=== PATIENT | male | born 1960 | race African-American/Black ===

== ENCOUNTER 2017-09-03 22:36 | Inpatient (IN) | payer OTHER, SELFPAY ==
[2017-09-03] MEDS ORDERED: Ondansetron HCl/PF 4 MG/2 ML Vial ONE (23:45)
[2017-09-04 00:27] LABS: #Basophils 0.1 thou/uL (0.0-0.2); #Eosinphils 0.2 thou/uL (0.0-0.7); #Lymphocytes 1.9 thou/uL (1.20-3.40); #Monocytes 0.7 thou/uL (0.11-0.59); #Neutrophils 8.3 thou/uL (1.40-6.50); %Basophils 0.5 % (0.0-1.0); %Eosinophils 1.6 % (0.0-10.0); %Lymphocytes 17.4 % (21.0-51.0); %Monocytes 6.3 % (0.0-10.0); Mean Platelet Volume 8.3 fL (7.4-10.4); Red Blood Cell (RBC) Count 4.15 mill/uL (4.70-6.10); White Blood Cell (WBC) Count 11.1 thou/uL (4.8-10.8)
[2017-09-04] MEDS ORDERED: cloNIDine 0.1 MG TAB ONE (00:33)
[2017-09-04 00:45] LABS: Troponin I 0.127 ng/mL (< 0.028)
[2017-09-04 00:48] LABS: Chloride 97 mmol/L (98-107)
[2017-09-04 00:49] LABS: Calcium 9.2 mg/dL (7.8-10.44)
[2017-09-04 00:50] LABS: Globulin 3.9 g/dL (2.4-3.5); Protein, Total 7.3 g/dL (6.0-8.3)
[2017-09-04 00:51] LABS: Carbon Dioxide 17 mmol/L (22-29)
[2017-09-04 00:52] LABS: Alkaline Phosphatase 107 U/L (40-150); Bilirubin, Total 1.4 mg/dL (0.2-1.2)
[2017-09-04 00:53] LABS: Calc. Creatinine Clearance 0 mL/min (70-130); Estimated GFR-MDRD 34
[2017-09-04 00:54] LABS: BUN (Urea Nitrogen) 34 mg/dL (8.4-25.7)
[2017-09-04 00:55] LABS: AST (SGOT) 25 U/L (5-34)
[2017-09-04 00:56] LABS: ALT (SGPT) 12 U/L (8-55); Lipase 30 U/L (8-78)
[2017-09-04] MEDS ORDERED: hydrALAZINE 20 MG/ML VIAL ONE (01:03)
[2017-09-04 01:04] LABS: Anion Gap 23 mmol/L (10-20)
[2017-09-04 01:59] LABS: Bilirubin Negative (Negative); Blood, Urine Moderate (Negative); Glucose, Urine (Dipstick) 250 mg/dL (Negative); Ketone, Urine Trace mg/dL (Negative); Nitrite Negative (Negative); Protein, Urine (Dipstick) 300 mg/dL (Neg-Trace); Urobilinogen 0.2 mg/dL (0.2-1.0)
[2017-09-04 02:02] LABS: Bacteria/HPF None Seen HPF (None Seen); Hyaline Casts/LPF 4-6 HYALINE CAST LPF (0-3 Hyaline); RBC/HPF 0-3 HPF (0-3); Squamous Epithelial None Seen HPF (0-3); WBC/HPF 0-3 HPF (0-3)
[2017-09-04] MEDS ORDERED: Ondansetron HCl/PF 4 MG/2 ML Vial IVP PRN (02:23)
[2017-09-04] MEDS ORDERED: Acetaminophen 325 MG TAB PO PRN (02:23)
[2017-09-04] MEDS ORDERED: Sodium Chloride 0.9% 1,000 ML IV SCH ×2 (02:30→09:15)
[2017-09-04] MEDS ORDERED: Enoxaparin Sodium 100 MG/ML SYRINGE ONE (04:01)
[2017-09-04] MEDS ORDERED: cloNIDine 0.1 MG TAB PO PRN ×2 (05:17→08:48)
[2017-09-04 05:19] LABS: #Basophils 0.1 thou/uL (0.0-0.2); #Eosinphils 0.2 thou/uL (0.0-0.7); #Lymphocytes 1.6 thou/uL (1.20-3.40); #Monocytes 0.8 thou/uL (0.11-0.59); #Neutrophils 6.7 thou/uL (1.40-6.50); %Basophils 0.7 % (0.0-1.0); %Eosinophils 2.1 % (0.0-10.0); %Lymphocytes 16.9 % (21.0-51.0); %Monocytes 8.3 % (0.0-10.0); Hematocrit 34.9 % (42.0-52.0); Mean Platelet Volume 7.9 fL (7.4-10.4); Red Blood Cell (RBC) Count 4.07 mill/uL (4.70-6.10); White Blood Cell (WBC) Count 9.3 thou/uL (4.8-10.8)
[2017-09-04 05:36] VITALS: BMI 27.8
[2017-09-04 05:40] LABS: ALT (SGPT) 11 U/L (8-55); AST (SGOT) 22 U/L (5-34); Alkaline Phosphatase 107 U/L (40-150); Anion Gap 15 mmol/L (10-20); BUN (Urea Nitrogen) 35 mg/dL (8.4-25.7); Bilirubin, Total 1.8 mg/dL (0.2-1.2); Calc. Creatinine Clearance 43 mL/min (70-130); Calcium 8.9 mg/dL (7.8-10.44); Carbon Dioxide 23 mmol/L (22-29); Chloride 97 mmol/L (98-107); Estimated GFR-MDRD 32; Globulin 3.8 g/dL (2.4-3.5)
[2017-09-04 05:44] LABS: Troponin I 0.141 ng/mL (< 0.028)
[2017-09-04] MEDS ORDERED: Nitroglycerin 2% Ointment 1 INCH/1 GM Packet TOP SCH (06:00)
[2017-09-04] MEDS: Piperacillin/Tazobactam 3.375 GM in Sodium Chloride 0.9% 100 ML IVPB SCH ×4 (06:34→23:58)
[2017-09-04] MEDS ORDERED: Aspirin 81 mg Enteric Coated Tablet PO SCH (09:00)
[2017-09-04] MEDS ORDERED: Insulin Regular 300 UNITS/3 ML VIAL SC PRN (09:06)
[2017-09-04] MEDS ORDERED: Dextrose 50% Abboject 50 ML SYRINGE SLOW IVP PRN (09:06)
[2017-09-04] MEDS ORDERED: Dextrose 5% in Water 1,000 ML IV PRN (09:06)
[2017-09-04] MEDS: Heparin 5,000 UNITS/ML VIAL SC SCH ×3 (09:35→20:09)
--- NOTE | 2017-09-04 09:45 | RAD ---
PORTABLE CHEST: Date: 09/04/17 HISTORY: Chest pain. COMPARISON: 08/26/16 exam. FINDINGS: Heart size is within normal limits for portable technique. The aorta is mildly tortuous. The lungs ap pear clear of any infiltrates. No signs of failure. IMPRESSION: No acute findings. POS: [facility]
--- NOTE | 2017-09-04 10:10 | CT ---
PRELIMINARY REPORT/[facility]/EMERGENCY AFTER HOURS PROCEDURE: EXAM: CT Abdomen and Pelvis Without Intravenous Contrast EXAM DATE/TIME: Exam ordered 09/04/2017 1:19 AM CLINICAL HISTORY: 56 years old, male; Pain; Abdominal pain; Epigastric; Prior surgery; Surgery type: Surgical history o f cholecystectomy; Patient HX: Abdomen assessment findings include abdomen symmetrical, abdomen soft, tender, to the epigastric region, bowel sound normal, associated with nausea, associated with vomiting, currently, number of times: 2, vomiting yellow fluid TECHNIQUE: Axial computed tomography images of the abdomen and pelvis without intravenous contrast. Coronal reformatted images were created and reviewed. COMPARISON: No relevant prior studies available. FINDINGS: Lower thorax: No acute findings. ABDOMEN: Liver: Unremarkable. Gallbladder and bile ducts: Prior cholecystectomy. No ductal dilation. Pancreas: Unremarkable. No ductal dilation. Spleen: Unremarkable. No splenomegaly. Adrenals: Unremarkable. No mass. Kidneys and ureters: Chronic medical renal disease. No obstructing stones. No hydronephrosis. Stomach and bowel: Unremarkable. No obstruction. No mucosal thickening. Appendix: Normal appendix. PELVIS: Bladder: Unremarkable. No stones. Reproductive: Unremarkable as visualized. ABDOMEN and PELVIS: Intraperitoneal space: Unremarkable. No free air. No significant fluid collection. Bones/joints: Right hip osteoarthritis. No acute fracture. No dislocation. Soft tissues: Unremarkable. Vasculature: Unremarkable. No abdominal aortic aneurysm. Lymph nodes: There is circumferential soft tissue density thickening of the wall of the splenic flexu re of the colon with mildly prominent adjacent lymph nodes and minimal associated stranding. This yvette uld be considered primary colon cancer until proven otherwise. IMPRESSION: There is circumferential soft tissue density thickening of the wall of the splenic flexure of the col on with mildly prominent adjacent lymph nodes and minimal associated stranding. This should be consid ered primary colon cancer until proven otherwise. Thank you for allowing us to participate in the care of your patient. Dictated and Authenticated by: Reza Ha MD 09/04/2017 1:31 AM Central Time ([place] & [place]) FINAL REPORT EMERGENCY AFTER HOURS CT ABDOMEN AND PELVIS PERFORMED WITHOUT CONTRAST ENHANCEMENT: Date: 09/04/17 HISTORY: Abdominal pain, more epigastric in nature. COMPARISON: 02/02/15 exam. FINDINGS: The lung bases are clear of infiltrates. The liver, spleen, and pancreas regions appear unremarkable given the limitations of a noncontrast st udy. Gallbladder has been removed. Right and left adrenal glands, and right and left kidneys are normal in size and do not appear obstru cted. There is no significant periaortic or mesenteric lymphadenopathy. In the region of the splenic flexure, there is suggestion of an area of wall thickening. There is some minimal pericolonic fat str anding in this region which makes this finding more worrisome as to be more than just simply contract ion. CT of pelvis was performed without contrast enhancement. There is no evidence of adenopathy, mass, or free fluid. There are arthritic changes of the spine and hips. IMPRESSION: Focal area of possible wall thickening in the splenic flexure with some minimal fat stranding in this region. Although these changes are subtle, the possibility that this represents a colonic malignancy should be considered and colonoscopy would be recommended for further assessment. This report is in agreement with the preliminary report issued by [facility]. POS: [facility]
--- NOTE | 2017-09-04 10:47 | HP ---
HISTORY OF PRESENT ILLNESS: Mr. Loo is a 56-year-old black man. He came to this facility last nig with complaint of abdominal pain, nausea, and vomiting which started about 2 days prior to admissi on. These problems have been getting worse over time. He also claims that yesterday morning, he had some chest pain while at rest, which lasted about 30 minutes, was relieved spontaneously and did not show any radiation. He was evaluated in the ER, was found to have a positive cardiac enzymes and po ssible colitis. He has been admitted for management and evaluation. He is known to have a history of congestive heart failure about 1 year ago. In 02/2016, he had a per fusion scan, which showed reversible anterior myocardial ischemia with an ejection fraction of 49%. He is also known to have a history of hypertension, diabetes mellitus, and chronic kidney disease. W marshall do not know his baseline kidney function at this time. During his last admission about 1 year ago, his creatinine was noticed to be 3.0, it was in 06/2016. He is also known to have a history of hepa titis B and hepatitis C. PAST SURGICAL HISTORY: His surgical history is remarkable for cholecystectomy. ALLERGIES: He does not have any known allergies. SOCIAL HISTORY: He is an active smoker; however, could not quantify his smoking habit. He claims th at he smoked every now and then. He also smoked marijuana and he claims that he drinks socially. FAMILY HISTORY: Reviewed and is remarkable for hypertension. MEDICATIONS: Prior to admission, he was on aspirin 81 mg daily, Lipitor 40 mg daily, Coreg 25 mg b.i .d., Clonidine 0.2 mg b.i.d., Lasix 40 mg daily, NPH insulin 25 units b.i.d., isosorbide mononitrate 30 mg daily, metformin 500 mg b.i.d., nifedipine XL 60 mg daily. REVIEW OF SYSTEMS: Constitutional: He admits to generalized weakness. He denies any fever. HEENT: No headache, no ocular pain, no sore throat, no rhinorrhea, no earache, no epistaxis. Neck: No ne ck pain, no neck stiffness. Cardiovascular: No chest pain. Respiratory: No shortness of breath. Pulmonary: Admits to chronic cough. Gastrointestinal: Admits to abdominal pain, nausea, vomiting. He denies diarrhea. Genitourinary: No dysuria, no hematuria. Endocrinology: No heat or cold into lerance. No polyuria, polydipsia or polyphagia. Musculoskeletal: He denies arthralgia. Skin: No rash, no itching. Allergies: No hayfever. Hematology: No abnormal bleeding, no ecchymosis. Lymph atic: No palpable lymphadenopathy, no painful lymphadenopathy. Psychiatric: No anxiety, no depress ion. Neurologic: No seizure, no weakness. PHYSICAL EXAMINATION: GENERAL: At the current time, he is alert, oriented, in no acute distress. VITAL SIGNS: His latest vital signs showed a temperature of 98.1, pulse rate 101, respiratory rate 1 8, blood pressure 142/72. HEENT: His head is normocephalic and atraumatic. Both his pupils are equal, reactive. Ears and nos e normal. Oral mucosa is moist. Pharyngeal area is clear with no exudate, no hyperemia. NECK: Supple. There is no distention of the jugular vein. No lymphadenopathy felt. Thyroid gland not palpable. There is no carotid bruit. CHEST: Symmetrical with regular S1, S2. LUNGS: Clear. ABDOMEN: Soft, bowel sounds heard. We could not appreciate any organomegaly. There is no focal are a of tenderness. EXTREMITIES: Show +1 edema. NEUROLOGIC: He moves all extremities. LABORATORY DATA AND IMAGING: Showed sodium of 131, potassium 4.4, chloride 97, CO2 23, BUN 35, creat inine 2.51, glucose 159, calcium 8.9, total bilirubin 1.8, AST 22, ALT 11, alkaline phosphatase 107, troponin was noticed to be 0.141, earlier it was 0.127. BUN earlier at midnight was 34, creatinine 2 .39. CBC showed WBC of 9.3, hemoglobin of 11.7, hematocrit of 34.9, MCV of 85.7, platelet 180. Ches t x-ray reviewed by us showed no acute infiltrate, normal size heart. Abdomen CT was reported to yvette w evidence of colitis. ASSESSMENT: This is a 56-year-old black male with history of hypertension, diabetes mellitus, [place] ry artery disease, congestive heart failure who was admitted with nausea, vomiting, abdominal pain, f ound to have colitis on abdomen CT, was also noticed to have elevated cardiac enzymes. Cardiology co nsult was called. NE protocol was initiated. We will also get gastroenterology evaluation. His ser um creatinine was noticed to be increased and consistent with acute on chronic kidney disease; fletchereve r, as mentioned earlier, we do not know his baseline kidney function. The patient is admitted to [facility]. Further evaluation and management will depend on the course of his hospitalization and his r esponse to therapy.
[2017-09-04] MEDS: Famotidine/PF 20 mg/2ml Vial SLOW IVP SCH (11:04)
[2017-09-04] MEDS: Sodium Chloride 0.9% 1,000 ML IV SCH ×2 (11:04→20:09)
[2017-09-04 11:27] LABS: Troponin I 0.114 ng/mL (< 0.028)
[2017-09-04 11:41] LABS: Amphetamine Not Detected (NotDetected); Methadone Not Detected (NotDetected); Methamphetamine Not Detected (NotDetected)
--- NOTE | 2017-09-04 12:34 | CON ---
DATE OF CONSULTATION: 09/04/2017 REASON FOR CONSULTATION: Uncontrolled hypertension, chest pain, and coronary disease, a patient of [facility]. HISTORY OF PRESENT ILLNESS: Mr. Loo is a 56-year-old man. He has a long history of hypertension a nd renal insufficiency as well as chest pain with coronary disease. The patient came to the hospital with chest pain which was severe and associates with blood pressure of over 210 systolic. The patie nt has been treated, now his blood pressure is better. He is pain free now. 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 MEDICATIONS: Prior to admission, he was on Lasix, lisinopril, and clonidine. Previously had been on nifedipine and carvedilol, but has been placed back on it now. ALLERGIES: None known. SOCIAL HISTORY: He just got out of senior care a couple days ago, smokes occasionally. REVIEW OF SYSTEMS: CONSTITUTIONAL: No significant weight gain or loss. VISION: No changes. HEARING: No changes. PULMONARY: No cough or wheezing. GASTROINTESTINAL: No nausea, vomiting, diarrhea. SKIN: No rashes. NEUROLOGIC: No unilateral weakness or numbness. PSYCHIATRIC: No unusual depression or anxiety. PHYSICAL EXAMINATION: VITAL SIGNS: Blood pressure is now much better, 142/72, is was 210/109 at 5:30 this morning. NECK: Neck veins are normal. Carotid normal upstrokes. LUNGS: Clear. CARDIAC: Normal S1, normal S2. There is no murmur, rub or gallop. ABDOMEN: Soft, nontender. EXTREMITIES: No clubbing, no cyanosis. There is no edema. HEMATOLOGIC: No unusual bruising. PSYCHIATRIC: Mood and affect normal. NEUROLOGIC: Grossly normal. SKIN: Warm and dry. LABORATORY: Creatinine is 2.51. Estimated GFR 32, stage 3 renal failure, now with improved. Tropon in level 0.141. The EKG; normal sinus rhythm with ST changes probably related to left ventricular hypertrophy. ASSESSMENT: 1. Uncontrolled hypertension. 2. Stage 3 renal failure. 3. Underlying coronary disease. 4. Hyponatremia probably secondary to diuretics. PLAN: 1. Agree with intravenous fluids, will reduce dose. 2. We do urine toxicology screen. 3. He can probably be released home tomorrow if doing well.
[2017-09-04] MEDS ORDERED: Carvedilol 6.25 MG TAB PO SCH (17:00)
[2017-09-04] MEDS ORDERED: Carvedilol 25 MG TAB PO SCH (17:00)
[2017-09-04] MEDS: Carvedilol 25 MG TAB PO SCH (17:17)
[2017-09-04] MEDS: Insulin NPH/Reg Insulin Hm 300 UNITS/3 ML VIAL SC SCH (17:38)
--- NOTE | 2017-09-04 17:46 | CON ---
DATE OF CONSULTATION: 09/04/2017 TYPE OF CONSULTATION: Gastroenterology Consultation. CHIEF COMPLAINT: Abdominal pain with nausea and vomiting. HISTORY OF PRESENT ILLNESS: Mr. Loo is a 56-year-old man who was admitted with 2 days of nausea an d vomiting and diffuse left upper quadrant, sharp abdominal pain. The pain went on persistently for 2 days, but is much better today and has only lasted a few minutes at a time a few times today. His nausea and vomiting is resolved today and he tolerated a hamburger without any problems. He has had no diarrhea, constipation or blood in the stool. He has had multiple similar admissions in the past and has undergone upper endoscopy 3 different times. He has been found to have an ulcer in the past and H. pylori in the past which has been treated with antibiotics. His most recent endoscopy showed negative for H. pylori by biopsies. CT scan this admission showed thickening around the splenic flex ure with some fat stranding. GI was consulted to evaluate for neoplastic process in this area. 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 He has had a duodena l ulcer and has been treated for H. pylori in the past. His most recent upper endoscopy also showed fungal esophagitis for which he was treated. Previous serology showed past infection with hepatitis B with a core antibody positive and surface antibody positive. He does not have chronic hepatitis B. Hepatitis C has been negative. He has a history of hypertension, diabetes mellitus, and chronic ki dney disease. PAST SURGICAL HISTORY: Cholecystectomy. FAMILY HISTORY: Negative for GI malignancies. SOCIAL HISTORY: He last used cocaine a few days ago. He smokes occasionally. He drinks 2-3 beers a couple times per week. ALLERGIES: No known drug allergies. MEDICATIONS: Aspirin, carvedilol, clonidine, famotidine, heparin subcu, isosorbide mononitrate, nife dipine, and Zosyn. REVIEW OF SYSTEMS: Negative x10 systems reviewed except as stated in the history of present illness. PHYSICAL EXAMINATION: VITAL SIGNS: Temperature 97.5, pulse 87, blood pressure 154/86. GENERAL: He is in no acute distress. He is alert and oriented x3. HEENT: Eyes have no scleral icterus. Oropharynx is clear, without lesions. NECK: No cervical or supraclavicular lymphadenopathy. LUNGS: Clear to auscultation bilaterally. HEART: Regular rate and rhythm without murmur. ABDOMEN: Soft, mild tenderness in the left upper quadrant without guarding. Bowel sounds are presen t. No hepatomegaly. EXTREMITIES: No lower extremity edema. NEUROLOGIC: Cranial nerves are grossly intact. LABORATORY: White blood cell count 9.3, hemoglobin 11.7, platelets 180, creatinine 2.51, bilirubin 1 .8, AST 22, ALT 11, alkaline phosphatase 107, albumin 3.2, lipase 30. Urine cocaine was positive. IMPRESSION: 1. Ischemic colitis. There is some thickening with some inflammatory stranding around the splenic f lexure, at the same time presenting with left upper quadrant abdominal pain and cocaine use and uncon trolled hypertension. CT scan was read as circumferential thickening at this level and malignancy wa s recommended to be ruled out. The patient did have an attempted colonoscopy by Dr. Andino back in 2013; however, the prep was poor at that time. 2. Cirrhosis of the liver likely due to past alcohol. He is negative for chronic hepatitis C and ne gative for chronic hepatitis B. He has had a nodular liver confirmed by imaging. Endoscopy back in 01/2015 did not show varices. Since he is due for colonoscopy to evaluate abnormal CT findings then endoscopy can be performed at the same time for varices screening. RECOMMENDATIONS: 1. Check alpha fetoprotein. 2. Plan EGD for varices screening. 3. Colonoscopy to evaluate the abnormal CT findings at the splenic flexure. However, I favor this t o be ischemic colitis rather than a neoplastic process. 4. We will also schedule ultrasound for hepatoma screening as the CT on admission was without contra st. 5. We will plan to give clear liquids all day tomorrow and bowel prep for colonoscopy and EGD on Wed afternoon.
[2017-09-04] MEDS: Atorvastatin Calcium 40 MG TAB PO SCH (20:10)
[2017-09-04] MEDS ORDERED: Atorvastatin Calcium 40 MG TAB PO SCH (21:00)
[2017-09-05 06:02] LABS: Anion Gap 10 mmol/L (10-20); BUN (Urea Nitrogen) 40 mg/dL (8.4-25.7); Calc. Creatinine Clearance 39 mL/min (70-130); Calcium 7.9 mg/dL (7.8-10.44); Carbon Dioxide 23 mmol/L (22-29); Chloride 102 mmol/L (98-107); Cholesterol 148 mg/dl (< 200 Desired); Estimated GFR-MDRD 30; LDL Cholesterol, Calculated 62 mg/dL
[2017-09-05] MEDS: Piperacillin/Tazobactam 3.375 GM in Sodium Chloride 0.9% 100 ML IVPB SCH ×4 (06:30→23:56)
[2017-09-05] MEDS: Sodium Chloride 0.9% 1,000 ML IV SCH (06:30)
--- NOTE | 2017-09-05 07:00 | CON ---
DATE OF CONSULTATION: 09/04/2017 CONSULTING PHYSICIAN: Abe Martinez M.D. REQUESTING PHYSICIAN: Dr. Cabrera REASON FOR CONSULTATION: Chronic kidney disease. IMPRESSION: 1. Moderately-advanced chronic kidney disease. 2. Mild hyponatremia. HISTORY OF PRESENT ILLNESS: This is a 56-year-old gentleman with moderately-advanced chronic kidney disease, who in the past has had recurrent acute on chronic kidney disease. The patient presented he re with nausea, vomiting, and abdominal pain but denies any diarrhea. On presentation, the patient w as noted with an elevated creatinine of 2.5. The patient denies any sick contact. As a result of th e elevated creatinine, the decision was taken to involve Renal in the management of this case. ALLERGIES: No known drug allergies. SOCIAL HISTORY: Significant for tobacco use and marijuana use. FAMILY HISTORY: Significant for high blood pressure. MEDICATIONS: Reviewed and as documented on [employer]. REVIEW OF SYSTEMS: As documented in the body of the history. All the other systems were reviewed an d found not to be significantly related to the presenting illness. LABORATORY INVESTIGATION: Showed a sodium of 131, BUN of 35, creatinine of 2.51, bilirubin 1.8, albu min 3.2. PHYSICAL EXAMINATION: GENERAL: The patient was found not to be in any obvious distress. VITAL SIGNS: Noted with the following vital signs: Afebrile, temperature 97.5, pulse 87, respirator y rate of 18, O2 saturation of 98%, blood pressure 154/86. HEENT: Unremarkable. Moist oral mucosa. NECK: Supple. No conjunctival injection or icterus. CARDIOVASCULAR SYSTEM: First and second heart sounds were heard. RESPIRATORY SYSTEM: Clear to auscultation. DIGESTIVE SYSTEM: Revealed an obese abdomen with some areas of vague tenderness in both the right an d left lower quadrants. EXTREMITIES: No peripheral edema. SKIN: No new gross rash. NEUROLOGIC: Alert and oriented. No lateralizing signs. LYMPHATICS: No peripheral lymphadenopathy. SUMMARY: A 56-year-old gentleman with moderately-advanced chronic kidney disease, who presented here with abdominal discomfort with nausea and vomiting. Thank you for this consultation. We will follow with you.
--- NOTE | 2017-09-05 08:10 | ULT ---
RIGHT UPPER QUADRANT ULTRASOUND: Date: 09/05/17 HISTORY: Hepatoma screening. History of cirrhosis. FINDINGS: Real-time images of the upper abdomen are limited due to bowel gas. The gallbladder has been removed. Common duct is 7.0 mm. The visualized liver parenchyma shows no focal findings. Pancreas is obscured . Right kidney is not obstructed. IMPRESSION: 1. Postop cholecystectomy change. Normal caliber common duct at 6-7 mm considering cholecystectomy. 2. No evidence of liver mass. Liver is approximately 17 cm in length. POS: [facility]
--- NOTE | 2017-09-05 08:13 | PDOC.PN ---
- Subjective Encounter Start Date: 09/05/17 Encounter Start Time: 07:30 Some right upper quadran disconfort.. - Objective Vital Signs & Weight: Vital Signs (12 hours) Temp Pulse Resp BP BP Pulse Ox 09/05/17 04:00 98 F 88 20 155/80 H 98 09/04/17 23:58 210/109 H Weight Weight 201 lb I&O: 09/04/17 09/05/17 09/06/17 06:59 06:59 06:59 Intake Total 30 4259 Output Total 375 3425 Balance -345 834 Result Diagrams: 09/04/17 05:00 09/05/17 05:16 Additional Labs: Accuchecks 09/05/17 05:41 POC Glucose 209 H Phys Exam - Physical Examination Constitutional: NAD HEENT: sclera anicteric Neck: no JVD Respiratory: clear to auscultation bilateral Cardiovascular: RRR Gastrointestinal: soft, non-tender, no distention, positive bowel sounds Musculoskeletal: no edema Neurological: moves all 4 limbs Psychiatric: A&O x 3 Dx/Plan (1) Colitis Code(s): K52.9 - NONINFECTIVE GASTROENTERITIS AND COLITIS, UNSPECIFIED Status : Acute Plan: For colonoscopy and EGD. Comment: Most likely ischemic, per GI. (2) ROMAINE (acute kidney injury) Code(s): N17.9 - ACUTE KIDNEY FAILURE, UNSPECIFIED Status: Acute Plan: Followed by Nephrology. Comment: Serum creatinine higher, consistant with ROMAINE + CKD. (3) Hypertension Code(s): I10 - ESSENTIAL (PRIMARY) HYPERTENSION Status: Chronic Plan: Continue current management.. Comment: Stable. (4) Diabetes mellitus type 2 in nonobese Code(s): E11.9 - TYPE 2 DIABETES MELLITUS WITHOUT COMPLICATIONS Status: Chronic Plan: Continue sliding scale.. (5) Coronary artery disease Code(s): I25.10 - ATHSCL HEART DISEASE OF [place] CORONARY ARTERY W/O ANG PCTRS Status: Chronic Comment: Stable.. elevated troponin due to CKD+ROMAINE. Seen by cardiology. - Plan For EGD & colonoscopy. -: Patient is hepatitis B & C negative per GI. -: F/u abdomen ultrasound.. * .
[2017-09-05] MEDS: Insulin NPH/Reg Insulin Hm 300 UNITS/3 ML VIAL SC SCH ×2 (08:34→16:34)
[2017-09-05] MEDS: Aspirin 81 mg Enteric Coated Tablet PO SCH (08:34)
[2017-09-05] MEDS: Carvedilol 25 MG TAB PO SCH ×2 (08:35→16:47)
[2017-09-05] MEDS: Heparin 5,000 UNITS/ML VIAL SC SCH ×3 (08:36→21:00)
[2017-09-05] MEDS ORDERED: FLU VACC QS2017-18 36 mo. & older 0.5 ML SYRINGE IM ONE (09:00)
[2017-09-05] MEDS ORDERED: NIFEdipine XL 60 MG TAB PO SCH (09:00)
[2017-09-05] MEDS: NIFEdipine XL 90 MG TAB PO SCH (09:11)
[2017-09-05] MEDS: Famotidine/PF 20 mg/2ml Vial SLOW IVP SCH (12:29)
--- NOTE | 2017-09-05 13:05 | PRG ---
DATE OF SERVICE: 09/05/2017 SUBJECTIVE: Mr. Loo feels better today. No complaints. PHYSICAL EXAMINATION: VITAL SIGNS: Blood pressure is still high, early this morning it was 155/80; at 9:08, it is 180/86. LUNGS: Clear. CARDIAC: Normal S1, normal S2. ABDOMEN: Soft, nontender. EXTREMITIES: There is no edema. PERTINENT LABORATORY: Creatinine is 2.7. GFR is 30. ASSESSMENT: 1. Hypertension, initially malignant, now improved, still elevated. 2. Stage 3 renal failure. Estimated GFR is 30. 3. Triglyceride 301, hypertriglyceridemia. PLAN: 1. Continue current medical regimen, showed a good amount of regimen dose now for hypertension. 2. Endoscopy will be done soon. 3. He can follow up with Dr. Monroy as an outpatient at the time of discharge.
[2017-09-05] MEDS ORDERED: GoLYTELY 4,000 ml Bottle PO SCH (17:00)
[2017-09-05] MEDS: Atorvastatin Calcium 40 MG TAB PO SCH (22:30)
[2017-09-05] MEDS ORDERED: cloNIDine 0.2 MG TAB PO SCH (23:15)
--- NOTE | 2017-09-05 23:22 | PRG ---
DATE OF SERVICE: 09/05/2017 SUBJECTIVE: Mr. Loo has no acute complaints today. OBJECTIVE: VITAL SIGNS: Temperature 98.7, pulse 80 and blood pressure 178/95. GENERAL: He is in no acute distress. LUNGS: Clear to auscultation bilaterally. HEART: Regular rate and rhythm. ABDOMEN: Soft. Mild tenderness in left upper quadrant without guarding. Bowel sounds are present. No hepatomegaly. EXTREMITIES: No lower extremity edema. IMPRESSION: 1. Ischemic colitis, presenting with abdominal pain and thickening and inflammatory changes around t he splenic flexure. This is likely caused by cocaine use and dehydration. Attempted colonoscopy by Dr. Sina romero in 08/2014 was incomplete due to poor bowel prep. 2. Cirrhosis of the liver, likely due to past alcohol. His last endoscopy was in 01/2015 and was ne gative for varices. Esophagogastroduodenoscopy will be planned at the time of colonoscopy to rule ou t varices now. RECOMMENDATIONS: 1. EGD and colonoscopy tomorrow. 2. If these tests are negative, then he should be ready to discharge from a GI standpoint. 3. Await alpha-fetoprotein.
[2017-09-06 05:45] LABS: Anion Gap 11 mmol/L (10-20); BUN (Urea Nitrogen) 23 mg/dL (8.4-25.7); Calc. Creatinine Clearance 45 mL/min (70-130); Calcium 8.3 mg/dL (7.8-10.44); Carbon Dioxide 23 mmol/L (22-29); Chloride 103 mmol/L (98-107); Estimated GFR-MDRD 34
[2017-09-06] MEDS: Piperacillin/Tazobactam 3.375 GM in Sodium Chloride 0.9% 100 ML IVPB SCH ×3 (06:39→16:48)
[2017-09-06] MEDS ORDERED: GoLYTELY 4,000 ml Bottle PO SCH (07:00)
[2017-09-06] MEDS: Heparin 5,000 UNITS/ML VIAL SC SCH (09:17)
[2017-09-06] MEDS: Carvedilol 25 MG TAB PO SCH ×2 (09:18→16:48)
[2017-09-06] MEDS: NIFEdipine XL 90 MG TAB PO SCH (09:18)
[2017-09-06] MEDS: Aspirin 81 mg Enteric Coated Tablet PO SCH (09:18)
[2017-09-06] MEDS: Famotidine/PF 20 mg/2ml Vial SLOW IVP SCH (09:27)
[2017-09-06] MEDS: Lisinopril 10 MG TAB PO SCH (10:10)
[2017-09-06] MEDS ORDERED: cloNIDine 0.1 MG TAB PO PRN (12:00)
[2017-09-06] MEDS ORDERED: cloNIDine 0.1 MG TAB PO SCH (12:00)
[2017-09-06] MEDS ORDERED: ALPRAZolam 0.25 MG TAB PO PRN (12:01)
[2017-09-06] MEDS ORDERED: hydrALAZINE 20 MG/ML VIAL SLOW IVP PRN (12:03)
[2017-09-06] MEDS ORDERED: hydrALAZINE 25 MG TAB PO SCH ×2 (12:15→15:00)
[2017-09-06] MEDS ORDERED: Propofol 200 MG/20 ML VIAL ONE (14:05)
[2017-09-06] MEDS ORDERED: Lidocaine 1% PF 5 ML VIAL ONE (14:05)
[2017-09-06] MEDS: cloNIDine 0.1 MG TAB PO SCH ×2 (15:33→20:20)
--- NOTE | 2017-09-06 16:25 | OP ---
PREOPERATIVE DIAGNOSES: 1. Cirrhosis: 2. Abnormal CT of colon. PROCEDURE IN DETAIL: After informed consent was obtained, the patient was placed in the left lateral decubitus position. Anesthesia was administered per the Anesthesia Department. Forward-viewing end oscope was inserted into the esophagus under direct visualization with ease and passed to the second portion of the duodenum with ease. Second portion of the duodenum and duodenal bulb were normal. Py lorus, antrum, body, fundus, and cardia were normal. No gastric varices were noted. Retroflexion in the stomach was normal. Esophagus was normal throughout. ASSESSMENT: Normal esophagogastroduodenoscopy. RECOMMENDATIONS: Proceed with colonoscopy. DESCRIPTION OF OPERATION: After informed consent was obtained, the patient was placed in the left la teral decubitus position. Anesthesia was administered per the Anesthesia Department. Forward-viewin g endoscope was inserted into the rectum after perianal inspection and rectal exam were normal, it wa s passed to the cecum and into the ileum. The ileum, ileocecal valve, and appendiceal orifice were n ormal. The prep was excellent. The ascending, transverse, descending, sigmoid and rectum were davina l except for splenic flexure mass that was three-fourth circumferential. This was likely malignant. Biopsies were taken. The patient also had 5 polyps scattered throughout the colon. These were both sessile and pedunculated and removed with hot snare electrocautery without difficulty. None of thes e polyps appeared malignant. They were all placed in the same container. ASSESSMENT: 1. 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 2. Multiple colon polyps. RECOMMENDATIONS: 1. Await histopathology. 2. CEA. 3. Surgical pin.
[2017-09-06] MEDS: Insulin NPH/Reg Insulin Hm 300 UNITS/3 ML VIAL SC SCH ×2 (16:47→18:29)
[2017-09-06] MEDS: Atorvastatin Calcium 40 MG TAB PO SCH (20:20)
[2017-09-06] MEDS: hydrALAZINE 25 MG TAB PO SCH (20:20)
--- NOTE | 2017-09-06 20:41 | PDOC.PN ---
- Subjective Encounter Start Date: 09/06/17 Encounter Start Time: 10:00 Patient seen and examined. No new complaints. No overnight events. NPO for EGD/ Colon. No CP/SOB - Objective MAR Reviewed: Yes Vital Signs & Weight: Vital Signs (12 hours) Temp Pulse Resp BP BP Pulse Ox 09/06/17 19:00 98.0 F 76 18 172/89 H 99 09/06/17 17:03 71 09/06/17 16:50 202/110 H 09/06/17 15:34 97.5 F L 71 16 205/119 H 100 09/06/17 15:33 205/119 H 09/06/17 12:14 217/110 H 09/06/17 12:13 76 217/110 H 09/06/17 11:59 98 F 76 18 217/110 H 97 09/06/17 10:37 98.2 F 88 18 09/06/17 10:10 217/110 H 09/06/17 09:18 88 Weight Weight 201 lb I&O: 09/05/17 09/06/17 09/07/17 06:59 06:59 06:59 Intake Total 4259 6340 2355 Output Total 3425 7510 550 Balance 834 -1170 1805 Result Diagrams: 09/04/17 05:00 09/06/17 05:02 Additional Labs: Accuchecks 09/06/17 09/06/17 09/06/17 16:50 13:50 11:17 POC Glucose 182 H 198 H 262 H 09/06/17 09/05/17 06:12 20:28 POC Glucose 189 H 315 H EKG Reviewed by me: Yes (Tele SR) Phys Exam - Physical Examination Constitutional: NAD Respiratory: no wheezing, no rhonchi Cardiovascular: RRR, no rub Gastrointestinal: soft, no distention, positive bowel sounds mild gen tenderness Musculoskeletal: no edema Neurological: moves all 4 limbs Dx/Plan - Plan DVT proph w/SCDs IMPRESSION: 1. Ischemic Colitis 2. HTN crisis 3. CKD 3 4. Elevated troponins due to # 2 and 3 5. Polysubstance abuse 6. Cirrhosis 7. GERD 8. Dyslipidemia PLAN: * EGD/Colon today * Add Clonidine due to uncontrolled BP - probably due to illicit drug withdrawal * AM labs * Conselled on drug abuse * DC SQ Heparin due to elevated BP Review of Systems - Review of Systems Respiratory: negative: Cough, Dry, Shortness of Breath, Hemoptysis, SOB with Excertion, Pleuritic Pain, Sputum, Wheezing Cardiovascular: negative: Chest Pain, Palpitations, Orthopnea, Paroxysmal Noc. Dyspnea, Edema, Light Headedness - Medications/Allergies Allergies/Adverse Reactions: Allergies Allergy/AdvReac Type Severity Reaction Status Date / Time No Known Allergies Allergy Verified 02/18/15 19:53 Medications: Current Medications Acetaminophen (Tylenol) 650 mg PO Q4H PRN PRN Reason: Headache/Fever or Pain Last Admin: 09/04/17 05:29 Dose: 650 mg Alprazolam (Xanax) 0.25 mg PO BIDPRN PRN PRN Reason: Anxiety Aspirin (Ecotrin) 81 mg PO DAILY [facility] Last Admin: 09/06/17 09:18 Dose: 81 mg Atorvastatin Calcium (Lipitor) 40 mg PO HS [facility] Last Admin: 09/06/17 20:20 Dose: 40 mg Carvedilol (Coreg) 25 mg PO BID-[facility] Last Admin: 09/06/17 16:48 Dose: 25 mg Clonidine (Catapres) 0.1 mg PO Q4H PRN PRN Reason: Systolic BP > 180 Clonidine (Catapres) 0.1 mg PO TID [facility] Last Admin: 09/06/17 20:20 Dose: 0.1 mg Dextrose/Water (Dextrose 50%) 25 gm SLOW IVP PRN PRN PRN Reason: Hypoglycemia Famotidine (Pepcid) 20 mg SLOW IVP DAILY [facility] Last Admin: 09/06/17 09:27 Dose: 20 mg Glucagon (Glucagon) 1 mg IM PRN PRN PRN Reason: Hypoglycemia Hydralazine HCl (Apresoline) 10 mg SLOW IVP Q4H PRN PRN Reason: SBP Greater Than 180 Last Admin: 09/06/17 17:03 Dose: 10 mg Hydralazine HCl (Apresoline) 50 mg PO TID [facility] Last Admin: 09/06/17 20:20 Dose: 50 mg Piperacillin Sod/Tazobactam (Sod 3.375 gm/ Sodium Chloride) 100 mls @ 200 mls/ hr IVPB Q6HR [facility] Last Admin: 09/06/17 16:48 Dose: 100 mls Dextrose/Water (D5w) 1,000 mls @ 0 mls/hr IV .Q0M PRN; As Directed PRN Reason: Hypoglycemia Insulin Human Isoph/Insulin Regular (Humulin 70/30) 25 units SC BID-WM [facility] Last Admin: 09/06/17 18:29 Dose: 25 units Insulin Human Regular (Humulin R) 0 units SC .MODERATE SLIDING SC PRN PRN Reason: Moderate Correctional Scale Isosorbide Mononitrate (Imdur Er) 30 mg PO DAILY [facility] Last Admin: 09/06/17 09:18 Dose: 30 mg Lisinopril (Zestril) 10 mg PO DAILY [facility] Last Admin: 09/06/17 10:10 Dose: 10 mg Nifedipine (Procardia Xl) 90 mg PO DAILY [facility] Last Admin: 09/06/17 09:18 Dose: 90 mg Ondansetron HCl (Zofran) 4 mg IVP Q6H PRN PRN Reason: Nausea/Vomiting Sodium Chloride (Flush - Normal Saline) 10 ml IVF Q12HR [facility] Last Admin: 09/06/17 20:21 Dose: 10 ml Sodium Chloride (Flush - Normal Saline) 10 ml IVF PRN PRN PRN Reason: Saline Flush Last Admin: 09/06/17 12:07 Dose: 10 ml
--- NOTE | 2017-09-06 23:25 | HP ---
HISTORY OF PRESENT ILLNESS: Bryce Loo is a 56-year-old black male patient admitted to the [facility] on 09/04/2017 from the emergency room, he was cocaine positive, has history of alcohol abuse. He reports six-pack a day and more and smokes more than 1/4 to 1/2 pack per day. He is known to have a history of hepatitis B and C. He has history of chronic kidney disease. He presented to the [facility] room with abdominal pain, nausea, and vomiting beginning two days prior to admission. He has b een evaluated by Dr. Waggoner and had severe hypertension and is out of control. He was noted to be an emic and because of history of rectal bleeding, constipation, Dr. Lafleur performed a colonoscopy today after a bowel prep yesterday. Colonoscopy revealed large splenic flexure tumor, multiple colon polyp s, prep was excellent, splenic flexure mass was 3/4 circumferential, biopsies obtained. CEA level or dered. CAT scan had been obtained on admission noting this to be normal without evidence of metastas is, but the area of the splenic flexure was noted on that scan. Chest x-ray without acute disease. The patient post-colonoscopy was kept on clear liquids, but he insisted on a regular diet. I discuss ed the situation with Dr. Waggoner who felt that he needed 24 to 36 hours to control his blood pressure before surgery could be undertaken. I have discussed these findings with the patient. His CEA level is pending. The patient, however, w ants to put off his surgery. He wants to come in later time to have it done. I have discussed with him, he will think about it tonight and I will discuss it further with him. Meanwhile, he is resumed his regular diet. ALLERGIES: None. TOBACCO: More than one-half pack per day. ALCOHOL: More than a six-pack a day. HOME MEDICATIONS: NPH insulin, atorvastatin 40 mg at bedtime, aspirin 81 mg a day, Catapres 0.2 mg b .i.d., nifedipine 60 mg daily, isosorbide 30 mg daily, furosemide 40 mg b.i.d., metformin 500 mg b.i. d. PAST SURGICAL HISTORY: Colonoscopy this hospitalization, cholecystectomy in the past. PAST MEDICAL HISTORY: Hepatitis B, hepatitis C, chronic kidney disease, history of alcohol abuse, hi story of cocaine use, tobacco use. SOCIAL HISTORY: Lives with his sister. He works for [employer]. He is not . PHYSICAL EXAMINATION: VITAL SIGNS: Height 5 feet 11 inches, weight 201 pounds, 28 BMI, temperature 98 degrees, pulse 76, b lood pressure 172/89. HEAD, EYES, EARS, NOSE AND THROAT: Unremarkable. LUNGS: Clear to auscultation. CARDIAC: Regular rate and rhythm without murmur or gallop. ABDOMEN: Soft, nontender, no masses palpable. EXTREMITIES: Unremarkable. LABORATORY DATA: CEA level pending. White count 9, hemoglobin 11.7. Sodium 133, potassium 4.1, cre atinine 2.41, which is about baseline for him. GFR 34, glucose 215. ASSESSMENT AND PLAN: 1. Splenic flexure colon malignancy. We would recommend resection. He wants to think about it may postpone this to later day. 2. Insulin-dependent diabetes mellitus, noncompliant. 3. Hypertension, noncompliant. 4. Hepatitis B and C. 5. Tobacco abuse. 6. Alcohol abuse. 7. Cocaine use.
[2017-09-07] MEDS: Piperacillin/Tazobactam 3.375 GM in Sodium Chloride 0.9% 100 ML IVPB SCH ×3 (00:26→12:56)
[2017-09-07] MEDS: Carvedilol 25 MG TAB PO SCH ×2 (09:45→17:42)
[2017-09-07] MEDS: Aspirin 81 mg Enteric Coated Tablet PO SCH (09:50)
[2017-09-07] MEDS: NIFEdipine XL 90 MG TAB PO SCH (09:50)
[2017-09-07] MEDS: hydrALAZINE 25 MG TAB PO SCH ×3 (09:50→21:14)
[2017-09-07] MEDS: Lisinopril 10 MG TAB PO SCH (09:50)
[2017-09-07] MEDS: Famotidine/PF 20 mg/2ml Vial SLOW IVP SCH (09:51)
[2017-09-07] MEDS: Insulin NPH/Reg Insulin Hm 300 UNITS/3 ML VIAL SC SCH ×2 (09:52→17:42)
[2017-09-07] MEDS: cloNIDine 0.1 MG TAB PO SCH (10:11)
--- NOTE | 2017-09-07 13:03 | PDOC.PN ---
- Subjective Encounter Start Date: 09/07/17 Encounter Start Time: 12:15 Patient seen and examined. No new complaints. No overnight events. Nausea better. - Objective MAR Reviewed: Yes Vital Signs & Weight: Vital Signs (12 hours) Temp Pulse Resp BP BP Pulse Ox 09/07/17 11:15 98.2 F 73 18 174/87 H 96 09/07/17 10:11 182/96 H 09/07/17 09:50 73 09/07/17 08:05 99.2 F 73 18 183/91 H 97 09/07/17 04:00 97.6 F 76 18 133/73 99 Weight Weight 201 lb I&O: 09/06/17 09/07/17 09/08/17 06:59 06:59 06:59 Intake Total 6340 3355 Output Total 7510 950 Balance -1170 2405 Result Diagrams: 09/04/17 05:00 09/06/17 05:02 Additional Labs: Accuchecks 09/07/17 09/06/17 09/06/17 11:14 20:39 16:50 POC Glucose 209 H 227 H 182 H 09/06/17 13:50 POC Glucose 198 H EKG Reviewed by me: Yes (Tele SR) Phys Exam - Physical Examination Constitutional: NAD Respiratory: no wheezing, no rales, no rhonchi, clear to auscultation bilateral Cardiovascular: RRR, no significant murmur, no rub no heaves/pulsation Gastrointestinal: soft, non-tender, no distention, positive bowel sounds Musculoskeletal: no edema Neurological: non-focal, moves all 4 limbs Psychiatric: normal affect, A&O x 3 Dx/Plan - Plan cont current plan of care, out of bed/ambulate, DVT proph w/SCDs IMPRESSION: 1. Ischemic Colitis/Colon mass - Patient declined surgery 2. HTN crisis - BP still uncontrolled - probably Cocaine induced 3. CKD 3 4. Elevated troponins due to # 2 and 3 5. Polysubstance abuse 6. Cirrhosis 7. GERD 8. Dyslipidemia PLAN: * s/p EGD/Colon * Cont other meds as below * DC later today or in AM if BP better. * Cont Clonidine with other BP meds * AM labs * Conselled on drug abuse * DC Zosyn Review of Systems - Review of Systems Respiratory: negative: Cough, Dry, Shortness of Breath, Hemoptysis, SOB with Excertion, Pleuritic Pain, Sputum, Wheezing Cardiovascular: negative: Chest Pain, Palpitations, Orthopnea, Paroxysmal Noc. Dyspnea, Edema, Light Headedness - Medications/Allergies Allergies/Adverse Reactions: Allergies Allergy/AdvReac Type Severity Reaction Status Date / Time No Known Allergies Allergy Verified 02/18/15 19:53 Medications: Current Medications Acetaminophen (Tylenol) 650 mg PO Q4H PRN PRN Reason: Headache/Fever or Pain Last Admin: 09/04/17 05:29 Dose: 650 mg Alprazolam (Xanax) 0.25 mg PO BIDPRN PRN PRN Reason: Anxiety Aspirin (Ecotrin) 81 mg PO DAILY [facility] Last Admin: 09/07/17 09:50 Dose: 81 mg Atorvastatin Calcium (Lipitor) 40 mg PO HS [facility] Last Admin: 09/06/17 20:20 Dose: 40 mg Carvedilol (Coreg) 25 mg PO BID-[facility] Last Admin: 09/07/17 09:45 Dose: 25 mg Clonidine (Catapres) 0.1 mg PO Q4H PRN PRN Reason: Systolic BP > 180 Clonidine (Catapres) 0.1 mg PO TID [facility] Last Admin: 09/07/17 10:11 Dose: 0.1 mg Dextrose/Water (Dextrose 50%) 25 gm SLOW IVP PRN PRN PRN Reason: Hypoglycemia Famotidine (Pepcid) 20 mg PO QAM [facility] Glucagon (Glucagon) 1 mg IM PRN PRN PRN Reason: Hypoglycemia Hydralazine HCl (Apresoline) 10 mg SLOW IVP Q4H PRN PRN Reason: SBP Greater Than 180 Last Admin: 09/06/17 17:03 Dose: 10 mg Hydralazine HCl (Apresoline) 50 mg PO TID [facility] Last Admin: 09/07/17 09:50 Dose: 50 mg Piperacillin Sod/Tazobactam (Sod 3.375 gm/ Sodium Chloride) 100 mls @ 200 mls/ hr IVPB Q6HR [facility] Last Admin: 09/07/17 12:56 Dose: 100 mls Dextrose/Water (D5w) 1,000 mls @ 0 mls/hr IV .Q0M PRN; As Directed PRN Reason: Hypoglycemia Insulin Human Isoph/Insulin Regular (Humulin 70/30) 25 units SC BID-[facility] Last Admin: 09/07/17 09:52 Dose: 25 units Insulin Human Regular (Humulin R) 0 units SC .MODERATE SLIDING SC PRN PRN Reason: Moderate Correctional Scale Isosorbide Mononitrate (Imdur Er) 30 mg PO DAILY [facility] Last Admin: 09/07/17 09:50 Dose: 30 mg Lisinopril (Zestril) 10 mg PO DAILY [facility] Last Admin: 09/07/17 09:50 Dose: 10 mg Nifedipine (Procardia Xl) 90 mg PO DAILY [facility] Last Admin: 09/07/17 09:50 Dose: 90 mg Ondansetron HCl (Zofran) 4 mg IVP Q6H PRN PRN Reason: Nausea/Vomiting Sodium Chloride (Flush - Normal Saline) 10 ml IVF Q12HR [facility] Last Admin: 09/07/17 09:51 Dose: 10 ml Sodium Chloride (Flush - Normal Saline) 10 ml IVF PRN PRN PRN Reason: Saline Flush Last Admin: 09/06/17 12:07 Dose: 10 ml
[2017-09-07] MEDS ORDERED: cloNIDine 0.1 MG TAB PO SCH (14:00)
--- NOTE | 2017-09-07 16:14 | PRG ---
DATE OF SERVICE: 09/07/2017 SUBJECTIVE: The patient is without GI complaints at this time. We discussed his colon cancer and ne ed for further treatment. OBJECTIVE: VITAL SIGNS: Temperature 98.2, pulse 73, respiratory rate 18, blood pressure 92/55. CHEST: Clear. CARDIOVASCULAR: Regular rate and rhythm. ABDOMEN: Benign. LABORATORY DATA: Shows CEA of 2.64. Histopathology is pending. ASSESSMENT: 1. Colon cancer, splenic flexure - the patient does not want treatment at this time. 2. Anemia secondary to #1. RECOMMENDATIONS: 1. Proceed with treatment when the patient agrees. 2. We will sign off.
[2017-09-07] MEDS ORDERED: Insulin Regular 300 UNITS/3 ML VIAL SC PRN (17:05)
--- NOTE | 2017-09-07 17:12 | PRG ---
DATE OF SERVICE: 09/07/2017 Bryce Loo yesterday insists on a regular diet. He has been on a regular diet since that time. T he patient was seen today after giving the evening and morning to decide what he wants to do regardin g his splenic flexure colon cancer. His CEA level is normal. His abdomen is soft, nontender. There is tolerating her diet. He does have history of constipation. After discussing the outcome of proc rastination of treatment including metastatic disease, obstruction, emergency surgery, perforation, p eritonitis, and he insisted on being discharged home and doing with this at another time. I pruett ve discussed this with Dr. Finley, [facility] Hospitalist. Patient will be discharged home. I will give h im my information to follow up with me in the office for later consideration or he can present to the emergency room and at this point, I will see as needed.
[2017-09-07 18:17] LABS: #Eosinphils 0.4 thou/uL (0.0-0.7); #Lymphocytes 1.6 thou/uL (1.20-3.40); #Monocytes 0.6 thou/uL (0.11-0.59); #Neutrophils 4.5 thou/uL (1.40-6.50); %Basophils 0.4 % (0.0-1.0); %Eosinophils 6.2 % (0.0-10.0); %Lymphocytes 22.7 % (21.0-51.0); %Monocytes 7.7 % (0.0-10.0); Hematocrit 29.9 % (42.0-52.0); Red Blood Cell (RBC) Count 3.41 mill/uL (4.70-6.10); White Blood Cell (WBC) Count 7.1 thou/uL (4.8-10.8)
[2017-09-07 18:36] LABS: Anion Gap 10 mmol/L (10-20); BUN (Urea Nitrogen) 23 mg/dL (8.4-25.7); Calc. Creatinine Clearance 50 mL/min (70-130); Calcium 8.5 mg/dL (7.8-10.44); Carbon Dioxide 22 mmol/L (22-29); Chloride 104 mmol/L (98-107); Estimated GFR-MDRD 39
--- NOTE | 2017-09-07 20:28 | PRG ---
DATE OF SERVICE: 09/07/2017 SUBJECTIVE: The patient was noted with the following. OBJECTIVE: VITAL SIGNS: Afebrile with a temperature of 98.2, pulse 73, respiratory rate of 18 and blood pressur e 92/55 to 174/87. HEENT: Unremarkable. Moist oral mucosa. No conjunctival injection or icterus. NECK: Supple. CARDIOVASCULAR SYSTEM: First and second heart sounds were heard. RESPIRATORY SYSTEM: Clear to auscultation. DIGESTIVE SYSTEM: Revealed a benign abdomen. EXTREMITIES: No peripheral edema. SKIN: No new gross rash. LYMPHATICS: No peripheral lymphadenopathy. LABORATORY INVESTIGATIONS: Showed a creatinine of 2.4. IMPRESSION: 1. Acute on chronic kidney disease, which seems to be stabilized. 2. Colonic mass, undergoing workup. PLAN: 1. We will continue renal supportive measures. 2. Continue to avoid potentially nephrotoxic agents. 3. Further management will be dependent on the clinical course. status post any potential cyc le treatment. We will watch out for any potential acute tubular necrosis. Thank you for this consultation. We will continue to follow with you.
[2017-09-07] MEDS: Atorvastatin Calcium 40 MG TAB PO SCH (21:13)
[2017-09-08] MEDS: hydrALAZINE 25 MG TAB PO SCH (04:52)
[2017-09-08] MEDS ORDERED: Famotidine 20 MG TAB PO SCH (09:00)
[2017-09-08] MEDS: NIFEdipine XL 90 MG TAB PO SCH (10:14)
[2017-09-08] MEDS: Aspirin 81 mg Enteric Coated Tablet PO SCH (10:15)
[2017-09-08] MEDS: Carvedilol 25 MG TAB PO SCH (10:15)
[2017-09-08] MEDS: Lisinopril 10 MG TAB PO SCH (10:16)
[2017-09-08] MEDS: Insulin NPH/Reg Insulin Hm 300 UNITS/3 ML VIAL SC SCH (10:16)
[2017-09-08 16:15] VITALS: BP 135/71; TEMP 98.7
--- NOTE | 2017-09-09 07:47 | DIS ---
DATE OF DISCHARGE: 09/08/2017 DISCHARGE DISPOSITION: Home. FOLLOWUP: Follow up with primary care physician, Dr. Bess Brewer in 1 week. Follow up with Dr. Johnny Monroy in 2-3 weeks. Follow up with Dr. Gonzales Mcgill in 1 week for colon mass. ALLERGIES: No known drug allergies. DISCHARGE MEDICATIONS: 1. Aspirin 81 mg daily. 2. Lipitor 40 mg at bedtime. 3. Carvedilol 25 mg b.i.d. 4. Clonidine as needed for systolic blood pressure more than 180. 5. Humulin 70-30 25 units daily. 6. Imdur ER 30 mg daily. 7. Procardia-XL 90 mg daily. INPATIENT CONSULTANTS: 1. Cardiology, Dr. Johnny Monroy (Dr. Waggoner was covering Dr. Monroy). 2. General Surgery, Dr. Mcgill. 3. Gastroenterology, Dr. Truman Lafleur. INPATIENT PROCEDURES: On 09/06/2017, patient underwent EGD that was negative. Colonoscopy showed sp lenic flexure mass, likely malignant with multiple colon polyps. Pathology is pending at this time. BRIEF HOSPITAL COURSE: Patient is a 57-year-old male with hypertension; diabetes mellitus, type 2; c hronic hepatitis B and C with cirrhosis and polysubstance abuse; presented to the hospital with abdom inal pain, nausea, and vomiting. Please refer to the history and physical dated 09/04/2017 for furth er details. The patient was admitted to the hospital with a diagnosis of abdominal pain with elevated troponins. His maximum troponin this admission was 0.127 with CK of 1561. CT scan of the abdomen and pelvis wa s consistent with colon mass at the splenic flexure. Patient was seen by multiple consultants as dis cussed above. Colonoscopy was performed that was consistent with colon mass. General Surgery was co nsulted for possible surgery. However, patient declined. He understands the risk of untreating yohannes gnant colon mass. He will follow up with Dr. Mcgill as outpatient. He had uncontrolled blood pressu re, probably secondary to cocaine abuse. His medications were optimized by Cardiology. He has been cleared by consultants for discharge. The patient understands the risk of refusing treatment for colon cancer. Pathology is pending at thi s time. FINAL DIAGNOSES: 1. Suspected ischemic colitis with a new diagnosis of colon mass, suspected malignant. Please note patient declined surgery. 2. Hypertensive crisis. His blood pressure medications have been optimized. He was advised to latisha tor blood pressure twice a day and maintain a log. He was advised to discontinue cocaine use, as thi s is causing his blood pressure to be uncontrolled. He is at very high risk of hemorrhagic cerebrova scular accident if he continues to abuse cocaine. He stated understanding. 3. Chronic kidney disease, stage 3. 4. Rhabdomyolysis on admission. 5. Elevated troponin secondary to uncontrolled blood pressure as well as chronic obstructive pulmona ry disease. 6. Polysubstance abuse. Urine drug screen was positive for cocaine. 7. Cirrhosis secondary to chronic hepatitis B and C. 8. Gastroesophageal reflux disease. 9. Dyslipidemia. 10. Medication noncompliance. SIGNIFICANT LABORATORY DATA: Alpha-fetoprotein was negative. CEA was 2.64. Total time coordinating the discharge of this patient was 35 minutes. Again, patient was extensively counseled to be compliant with medications. He was also advised to follow with Dr. Mcgill for colon mass, which is likely malignant.
== END 2017-09-08 17:04 | disposition home or self-care (01) | DRG 375 ==
LOC: ERS 22:36 → 2NO 09-04 03:45
PROVIDERS: ADMIT Internal Medicine; ATTEND Internal Medicine
PROC: 0DBL8ZX Excision of Transverse Colon, Via Natural or Artificial Opening Endoscopic, Diagnostic (ICD-10-PCS; principal; 2017-09-06)
PROC: 0DJ08ZZ Inspection of Upper Intestinal Tract, Via Natural or Artificial Opening Endoscopic (ICD-10-PCS; 2017-09-06)
DX: C18.5 Malignant neoplasm of splenic flexure (principal); N17.9 Acute kidney failure, unspecified; K55.9 Vascular disorder of intestine, unspecified; E11.22 Type 2 diabetes mellitus with diabetic chronic kidney disease; N18.3 Chronic kidney disease, stage 3 (moderate); M62.82 Rhabdomyolysis; B18.1 Chronic viral hepatitis B without delta-agent; I16.9 Hypertensive crisis, unspecified; E87.1 Hypo-osmolality and hyponatremia; K74.60 Unspecified cirrhosis of liver; I12.9 Hypertensive chronic kidney disease with stage 1 through stage 4 chronic kidney disease, or unspecified chronic kidney disease; K63.5 Polyp of colon; F14.920 Cocaine use, unspecified with intoxication, uncomplicated; F10.10 Alcohol abuse, uncomplicated; K59.00 Constipation, unspecified; Z72.0 Tobacco use; Z90.49 Acquired absence of other specified parts of digestive tract; D63.1 Anemia in chronic kidney disease; D63.0 Anemia in neoplastic disease; E86.0 Dehydration; E78.1 Pure hyperglyceridemia; B18.2 Chronic viral hepatitis C; F19.10 Other psychoactive substance abuse, uncomplicated; J44.9 Chronic obstructive pulmonary disease, unspecified; K21.9 Gastro-esophageal reflux disease without esophagitis; Z91.14 Patient's other noncompliance with medication regimen; F12.90 Cannabis use, unspecified, uncomplicated; I25.10 Atherosclerotic heart disease of native coronary artery without angina pectoris; I25.2 Old myocardial infarction
CPT/HCPCS: 36415; 36416; 71010; 74176; 76705; 80048; 80053; 80061; 80306; 81003; 81015; 82105; 82378; 82553; 83690; 84484; 85014; 85018; 85025; 85049; 88305; 90471; 90682; 93005; 96372; 96374; 96375; A4216; G0008; J0360; J1644; J1650; J2001; J2405; J2543; J2704; J7050; Q2036; S0028

== ENCOUNTER 2017-09-13 01:06 | Inpatient (IN) | payer OTHER, SELFPAY ==
[2017-09-13] MEDS ORDERED: Ondansetron HCl/PF 4 MG/2 ML Vial ONE ×2 (01:36→02:39)
[2017-09-13 01:44] LABS: #Eosinphils 0.2 thou/uL (0.0-0.7); #Lymphocytes 1.7 thou/uL (1.20-3.40); #Monocytes 0.5 thou/uL (0.11-0.59); #Neutrophils 4.4 thou/uL (1.40-6.50); %Basophils 0.3 % (0.0-1.0); %Eosinophils 3.2 % (0.0-10.0); %Lymphocytes 25.1 % (21.0-51.0); %Monocytes 7.5 % (0.0-10.0); %Neutrophils 63.9 % (42.0-75.0); Hemoglobin 7.7 g/dL (14.0-18.0); Mean Corpuscular HGB CONC 34.6 g/dL (32.0-36.0); Mean Corpuscular Volume 86.7 fl (80.0-94.0); Mean Platelet Volume 6.9 fL (7.4-10.4); Platelet Count 229 thou/uL (130-400); RBC Distribution Width 12.9 % (11.5-14.5); Red Blood Cell (RBC) Count 2.55 mill/uL (4.70-6.10); White Blood Cell (WBC) Count 6.8 thou/uL (4.8-10.8)
[2017-09-13 01:57] LABS: ALT (SGPT) 11 U/L (8-55); AST (SGOT) 14 U/L (5-34); Albumin 3.2 g/dL (3.5-5.0); Alkaline Phosphatase 74 U/L (40-150); Anion Gap 10 mmol/L (10-20); BUN (Urea Nitrogen) 26 mg/dL (8.4-25.7); Bilirubin, Total 0.4 mg/dL (0.2-1.2); Calc. Creatinine Clearance 0 mL/min (70-130); Calcium 8.3 mg/dL (7.8-10.44); Carbon Dioxide 20 mmol/L (22-29); Chloride 106 mmol/L (98-107); Estimated GFR-MDRD 35; Globulin 3.4 g/dL (2.4-3.5); Glucose 306 mg/dL (70-105); Lipase 59 U/L (8-78); Magnesium 2.1 mg/dL (1.6-2.6); Potassium 4.7 mmol/L (3.5-5.1); Protein, Total 6.6 g/dL (6.0-8.3); Sodium 131 mmol/L (136-145)
[2017-09-13 02:10] LABS: Troponin I 0.052 ng/mL (< 0.028)
[2017-09-13 02:14] LABS: CKMB 7.7 ng/mL (0-6.6)
[2017-09-13] MEDS ORDERED: Famotidine 20 MG TAB ONE (02:39)
[2017-09-13] MEDS ORDERED: Morphine 4 MG/ML VIAL ONE (02:39)
[2017-09-13] MEDS ORDERED: Lidocaine Viscous Sol 2% 15 ml UD Cup ONE (02:40)
[2017-09-13] MEDS ORDERED: Mag-Al 1200 mg/1200 mg/30 ML UDCUP ONE (02:40)
[2017-09-13 04:43] LABS: INR-International Normal Ratio 1.1; PTT 31.2 SEC (22.9-36.1); Prothrombin Time 13.9 SEC (12.0-14.7)
[2017-09-13] MEDS ORDERED: Pantoprazole 80 MG in Sodium Chloride 0.9% 100 ML IVP SCH (05:45)
[2017-09-13 05:47] LABS: Troponin I 0.056 ng/mL (< 0.028)
[2017-09-13] MEDS ORDERED: Lisinopril 10 MG TAB ONE (07:06)
[2017-09-13] MEDS ORDERED: cloNIDine 0.1 MG TAB ONE (07:06)
[2017-09-13] MEDS ORDERED: Iopamidol 370 76% 50 ML VIAL FS ONE (07:37)
[2017-09-13] MEDS ORDERED: hydrALAZINE 20 MG/ML VIAL SLOW IVP PRN (08:07)
[2017-09-13] MEDS ORDERED: Labetalol HCl 100 MG/20 ML VIAL SLOW IVP PRN (08:07)
[2017-09-13] MEDS ORDERED: cloNIDine 0.1 MG TAB PO PRN (08:10)
[2017-09-13] MEDS ORDERED: Dextrose 50% Abboject 50 ML SYRINGE SLOW IVP PRN (08:11)
[2017-09-13] MEDS ORDERED: Dextrose 5% in Water 1,000 ML IV PRN (08:11)
--- NOTE | 2017-09-13 08:17 | RAD ---
PORTABLE CHEST: Date: 09/13/17 HISTORY: Abdominal pain. COMPARISON: 09/04/17. FINDINGS: Lungs appear clear of infiltrate. Heart and mediastinum unremarkable. IMPRESSION: No evidence of acute interval change. POS: [facility]
[2017-09-13 08:22] LABS: Troponin I 0.055 ng/mL (< 0.028)
--- NOTE | 2017-09-13 08:30 | CT ---
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 Pt rep orts eating a burrito for dinner this evening. Also reports n/v/d. States he has also been having brittany ck stools but never saw red blood. Pt had cholecystectomy a few years ago. Pt states "someone told me i have colon cancer". TECHNIQUE: Axial computed tomography images of the abdomen and pelvis with intravenous contrast. All CT scans at this facility use one or more dose reduction techniques, viz.: automated exposure control; ma/kV adj ustment per patient size (including targeted exams where dose is matched to indication; i.e. head); or iterative reconstruction technique. Coronal reformatted images were created and reviewed. CONTRAST: 50 mL of [id number] administered intravenously. COMPARISON: [facility] Protocol 2017-09-04 01:19 FINDINGS: Lower thorax: Trace right pleural effusion. The wall of the distal esophagus appears mildly thickened which may be due to its nondistended state; however, it may represent esophagitis. ABDOMEN: Liver: Unremarkable. No mass. Gallbladder and bile ducts: Prior cholecystectomy. No ductal dilation. Pancreas: Unremarkable. No mass. No ductal dilation. Spleen: Unremarkable. No splenomegaly. Adrenals: Unremarkable. No mass. Kidneys and ureters: Unremarkable. No solid mass. No hydronephrosis. Stomach and bowel: Unremarkable. No obstruction. No mucosal thickening. Appendix: Normal appendix. PELVIS: Bladder: Unremarkable. No mass. Reproductive: Unremarkable as visualized. ABDOMEN and PELVIS: Intraperitoneal space: Unremarkable. No free air. No significant fluid collection. Bones/joints: No acute fracture. No dislocation. Soft tissues: Unremarkable. Vasculature: Unremarkable. No abdominal aortic aneurysm. Lymph nodes: Unremarkable. No enlarged lymph nodes. IMPRESSION: 1. Trace right pleural effusion. 2. The wall of the distal esophagus appears mildly thickened which may be due to its nondistended sta te; however, it may represent esophagitis. Thank you for allowing us to participate in the care of your patient. Dictated and Authenticated by: Reza Ha MD 09/13/2017 4:04 AM Central Time ([place] & [place]) FINAL REPORT EMERGENT AFTER HOURS CT ABDOMEN AND PELVIS WITHOUT IV CONTRAST: DATE: 09/13/17. HISTORY: Diffuse abdominal pain over the last 3-4 hours. Nausea, vomiting, and diarrhea. COMPARISON: 10/19/14. IMPRESSION: 1. Very small right pleural effusion. This has significantly decreased from the prior exam. 2. Post cholecystectomy changes. 3. [place] of the distal esophagus do appear mildly thickened. This could be related to incomplete di stention, although esophagitis or other etiology cannot be entirely excluded. 4. No CT evidence of appendicitis. 5. Moderate amount of retained fecal material seen throughout the colon. No dilated loops of small bowel are seen. 6. A 1.8 cm lucency within the superior end plate of the L4 vertebral body. This was not present on the study in 2014. There are prominent degenerative changes present at the L4-5 intervertebral disk space which are similar to the prior exam. Lucency probably represents a prominent Schmorl's node, but other etiologies cannot be entirely excluded. There are degenerative changes seen in the interve rtebral disk space at the L3-4 level. MRI lumbar spine is suggested for further evaluation. 7. These findings are in mild disagreement with the preliminary report by [facility]. CODE T POS: [facility]
[2017-09-13] MEDS ORDERED: GoLYTELY 4,000 ml Bottle PO SCH (08:45)
[2017-09-13] MEDS: NIFEdipine XL 90 MG TAB PO SCH (09:39)
[2017-09-13] MEDS: Carvedilol 25 MG TAB PO SCH ×2 (09:39→21:34)
[2017-09-13] MEDS: Sodium Chloride 0.9% 1,000 ML IV SCH ×2 (09:39→18:06)
[2017-09-13 10:14] LABS: Amphetamine Not Detected (NotDetected); Barbiturates Screen Not Detected (NotDetected); Benzodiazepine Screen Not Detected (NotDetected); Cocaine Metabolite Screen Detected (NotDetected); Medtox Control Line Valid? VALID (VALID); Medtox Reader # READER 4; Methadone Not Detected (NotDetected); Methamphetamine Not Detected (NotDetected); Opiate Screen Detected (NotDetected); Oxycodone Screen Not Detected (NotDetected); Phencyclidine (PCP) Not Detected (NotDetected); THC/Cannabinoid Screen Not Detected (NotDetected); Tricyclic Screen Not Detected (NotDetected)
[2017-09-13] MEDS: Neomycin 500 mg Tablet PO SCH ×2 (10:53→16:25)
[2017-09-13] MEDS: Erythromycin Base 250 MG TAB PO SCH ×3 (10:53→21:31)
--- NOTE | 2017-09-13 11:47 | HP ---
PRIMARY CARE PROVIDER: Bess Brewer M.D. HISTORY OF PRESENT ILLNESS: Patient with a long history of malignant hypertension, polysubstance abu se, noncompliance, was discharged from the hospital 4 days ago after a workup revealed a probable mal ignant mass, he declined surgery. He presents today having watery blood per rectum for 3 days. He d escribes the blood is dark. He has had cramping abdominal pain. He has had nausea and vomiting for the past 3 days. In review of his chart, his pathologic specimen from his colonoscopy is positive fo r adenocarcinoma. REVIEW OF SYSTEMS: General: He has been lightheaded and dizzy on arising for the past few days. No fainting. No fever or chills. Eyes: He states he always has blurry vision. No double vision, fla shing lights. ENT: No ear pain or drainage. No nasal bleeding. No trouble swallowing. Cardiac: No pressure, chest pain, orthopnea or paroxysmal nocturnal dyspnea. Respirations: No cough, wheezing. He does have shortness of breath for 3 days. Gastrointestinal: See present illness. Genitourinary: No hematuria, dysuria. Musculoskeletal: No pain or swelling i n his arms or legs. Neurologic: No strokes, seizures or focal weakness. Psychiatric: No anxiety, depression. Skin: No bruises, bleeding or rash. Heme/Lymph: No tender or swollen lymph nodes in axilla, inguinal or cervical area. MEDICATIONS: The patient does not have his medicines with him; however, he was discharged on 017 from our facility. Medications at that time are aspirin 81 mg a day, Lipitor 40 mg a day, Coreg 25 mg twice a day, clonidine 0.1 mg twice a day, Humulin 70/30 25 units subcu daily, Imdur 30 mg a da y, Procardia-XL 90 once a day. ALLERGIES: No known drug allergies. SOCIAL HISTORY: Active smoker, polysubstance abuse. His last drug screen reveals positive for cocai ne. He does smoke marijuana and drinks socially. FAMILY HISTORY: Remarkable for hypertension in multiple members. PHYSICAL EXAMINAITON: GENERAL: Patient is an alert, cooperative. VITAL SIGNS: Currently, blood pressure 188/99, pulse 98, respirations 18, room air sat 98-99 on room air. HEENT: Pupils equal, round, and reactive. Extraocular movements are intact. Sclerae white. Tympan ic membranes clear. Nose clear. Oral mucous membranes are wet. Dental hygiene is poor. NECK: Supple, without jugular venous distention, adenopathy or thyromegaly. CHEST: Clear to auscultation and percussion. HEART: Had a regular rate and rhythm. First and second heart sounds are clear. There are no murmur s, no gallops. ABDOMEN: Soft, bowel sounds normal. No hepatosplenomegaly, no mass, no rebound, no bruits. EXTREMITIES: Reveal no cyanosis, clubbing or edema. PULSES: Carotid, radial, femoral, and dorsalis pedis pulses are brisk and symmetric. LYMPHATIC SURVEY: Reveals no tender or swollen lymph nodes in axilla, inguinal or cervical area. NEUROLOGICAL: Cranial nerves II through XII are intact. Deep tendon reflexes symmetric. IMAGING: EKG: Regular sinus rhythm, ST-T segment changes in the inferolateral limb leads consistent with ischemia, read by me. LABORATORY DATA: Comp metabolic profile: Sodium 131, potassium 4.7, BUN 26, creatinine 2.36. Blood sugar 306, troponin 0.05, 0.05. Hemoglobin 7.7, white count 6.8, platelet count 229,000. Review of laboratory during his last admission, hemoglobin initially at 11.8 with 11 at discharge, so that the dropped to 7.7 is very significant. His creatinine is consistent with a GFR of approximately 30. ADMITTING DIAGNOSES: 1. Lower gastrointestinal bleeding. 2. Adenocarcinoma of the colon. 3. Malignant hypertension, noncompliant. 4. Polysubstance abuse including recent cocaine. 5. Chronic kidney disease stage 3. 6. Recent lzi-AC-dyurbtilr myocardial infarction versus demand ischemia. 7. Diabetes mellitus type 2, insulin-dependent. 8. Chronic hepatitis B and C. 9. Tobacco abuse. 10. Alcohol abuse. PLAN: 1. Admission, n.p.o. 2. Type and screen. 3. IV fluids. 4. Transfuse to keep hemoglobin greater than 7. 5. Parenteral medications for blood pressure control. 6. Accu-Cheks, sliding scale, hold long-acting insulin for now. 7. Serial H&H, repeat basic metabolic profile in the morning, urine drug screen. 8. Surgery consult.
[2017-09-13 12:24] LABS: #Eosinphils 0.2 thou/uL (0.0-0.7); #Lymphocytes 1.6 thou/uL (1.20-3.40); #Monocytes 0.6 thou/uL (0.11-0.59); #Neutrophils 3.5 thou/uL (1.40-6.50); %Basophils 0.3 % (0.0-1.0); %Eosinophils 3.4 % (0.0-10.0); %Lymphocytes 26.7 % (21.0-51.0); %Monocytes 9.9 % (0.0-10.0); %Neutrophils 59.7 % (42.0-75.0); Hemoglobin 6.8 g/dL (14.0-18.0); Mean Corpuscular HGB CONC 34.8 g/dL (32.0-36.0); Mean Corpuscular Hemoglobin 30.1 pg (27.0-31.0); Mean Corpuscular Volume 86.6 fl (80.0-94.0); Mean Platelet Volume 7.5 fL (7.4-10.4); Platelet Count 212 thou/uL (130-400); Red Blood Cell (RBC) Count 2.25 mill/uL (4.70-6.10); White Blood Cell (WBC) Count 5.9 thou/uL (4.8-10.8)
--- NOTE | 2017-09-13 14:16 | CON ---
DATE OF CONSULTATION: 09/13/2017 HISTORY OF PRESENT ILLNESS: The patient is a 57-year-old -[place] gentleman who returned to the emergency room after he had some bleeding and abdominal pain. He recently was diagnosed with col on cancer and he has declined treatment for that. PAST MEDICAL HISTORY: Includes substance abuse, hypertension, chronic renal insufficiency, diabetes mellitus, and hepatitis B and C. ALLERGIES: No known medical allergies. SOCIAL HISTORY: Positive for polysubstance abuse. FAMILY HISTORY: Negative for GI or liver disease. REVIEW OF SYSTEMS: Ten systems were reviewed and were negative except for above. PHYSICAL EXAMINATION: GENERAL: Shows a well-developed, well-nourished gentleman in no acute distress. VITAL SIGNS: Temperature 98.2, pulse is 92, respiratory rate 16, blood pressure 99/57. HEENT: Unremarkable. NECK: Supple. CHEST: Clear. CARDIOVASCULAR: Regular rate and rhythm. ABDOMEN: Soft, nontender, without organomegaly or masses. Bowel sounds present and normoactive. RECTAL: Deferred. EXTREMITIES: Normal. NEUROLOGIC: Nonfocal. LABORATORY: Shows a hemoglobin of 7.7, repeat shows 6.8. Chemistries significant for sodium of 131, CO2 20, BUN 26, creatinine 2.36, glucose 306. Toxicology showed positive for opiates and positive f or cocaine. CT showed trace pleural effusion, the wall of the distal esophagus appeared mildly thick ened, but probably due to non-distention. ASSESSMENT: 1. Adenocarcinoma of the colon. 2. Anemia secondary to #1. 3. Cocaine abuse. RECOMMENDATIONS: 1. Proceed with surgery if the patient agrees. 2. We will sign off.
[2017-09-13] MEDS: HumaLOG 300 UNITS/3 ML VIAL SC PRN ×2 (18:06→21:29)
[2017-09-13 18:23] LABS: #Eosinphils 0.2 thou/uL (0.0-0.7); #Lymphocytes 1.4 thou/uL (1.20-3.40); #Monocytes 0.5 thou/uL (0.11-0.59); #Neutrophils 5.1 thou/uL (1.40-6.50); %Basophils 0.1 % (0.0-1.0); %Eosinophils 2.6 % (0.0-10.0); %Lymphocytes 19.1 % (21.0-51.0); %Neutrophils 71.2 % (42.0-75.0); Hemoglobin 8.3 g/dL (14.0-18.0); Mean Corpuscular HGB CONC 33.3 g/dL (32.0-36.0); Mean Corpuscular Hemoglobin 29.6 pg (27.0-31.0); Mean Corpuscular Volume 88.8 fl (80.0-94.0); Mean Platelet Volume 7.5 fL (7.4-10.4); Platelet Count 242 thou/uL (130-400); RBC Distribution Width 13.2 % (11.5-14.5); White Blood Cell (WBC) Count 7.1 thou/uL (4.8-10.8)
[2017-09-13] MEDS: Atorvastatin Calcium 40 MG TAB PO SCH (21:31)
[2017-09-14] MEDS: Neomycin 500 mg Tablet PO SCH ×3 (00:09→17:29)
[2017-09-14 00:10] LABS: #Eosinphils 0.2 thou/uL (0.0-0.7); #Lymphocytes 1.8 thou/uL (1.20-3.40); #Monocytes 0.5 thou/uL (0.11-0.59); #Neutrophils 4.9 thou/uL (1.40-6.50); %Basophils 0.5 % (0.0-1.0); %Lymphocytes 23.8 % (21.0-51.0); %Monocytes 7.1 % (0.0-10.0); %Neutrophils 65.7 % (42.0-75.0); Hemoglobin 7.3 g/dL (14.0-18.0); Mean Corpuscular HGB CONC 34.1 g/dL (32.0-36.0); Mean Platelet Volume 6.8 fL (7.4-10.4); Platelet Count 199 thou/uL (130-400); RBC Distribution Width 13.1 % (11.5-14.5); Red Blood Cell (RBC) Count 2.42 mill/uL (4.70-6.10); White Blood Cell (WBC) Count 7.4 thou/uL (4.8-10.8)
[2017-09-14] MEDS: Sodium Chloride 0.9% 1,000 ML IV SCH ×3 (01:35→20:42)
[2017-09-14] MEDS: Erythromycin Base 250 MG TAB PO SCH ×4 (04:00→20:38)
[2017-09-14 06:01] LABS: Anion Gap 8 mmol/L (10-20); BUN (Urea Nitrogen) 26 mg/dL (8.4-25.7); Calc. Creatinine Clearance 41 mL/min (70-130); Calcium 7.6 mg/dL (7.8-10.44); Carbon Dioxide 21 mmol/L (22-29); Chloride 106 mmol/L (98-107); Estimated GFR-MDRD 31; Glucose 161 mg/dL (70-105); Sodium 130 mmol/L (136-145)
[2017-09-14] MEDS: Carvedilol 25 MG TAB PO SCH ×2 (08:12→20:40)
--- NOTE | 2017-09-14 08:15 | CON ---
DATE OF CONSULTATION: 09/14/2017 CHIEF COMPLAINT: Colon cancer at splenic flexure, anemia. HISTORY OF PRESENT ILLNESS: The patient is a 57-year-old black male. He is known to myself from a rior surgery in 2012. He had presented to the hospital last week, on 09/04/2017 complaining of high blood pressure. He has a long history of malignant hypertension, diabetes, and noncompliance as well as polysubstance abuse. He complained of abdominal pain with nausea and vomiting. CT scan was obta ined at the time that he presented and this revealed an apparent mass within the colon at the splenic flexure. He was also mildly anemic with a hemoglobin level of 11.8 that dropped down to 9.8 with IV fluid resuscitation. He also has a history of renal insufficiency and his creatinine was mildly elevated for him at 2.4 wh en he presented. He underwent a colonoscopy per Dr. Truman Lafleur on 09/06/2017. This revealed a mass at the splenic fle xure consistent with a malignancy. This is pathologically confirmed to be adenocarcinoma. His CEA l evel was essentially normal at 2.6 and there is no definite evidence on CT scan of metastatic disease . He was seen at that time in consultation by Dr. Mcgill who spoke with him regarding surgery. The patient unfortunately declined surgery, stating that he did not want to have this and decided that he preferred to be discharged. He was discharged on 09/08/2017 and then returned to the emergency room yesterday on 09/13/2017. He returns at this time complaining of blood per rectum. It was noted alta t his hemoglobin when he returned was 7.7 and this dropped down to 6.8 after hydration. He was trans fused with 1 unit of packed red blood cells. His hemoglobin came back up to 8.3 yesterday evening an d is 7.3 this morning. He tells me that his last bowel movement was nonbloody. I am asked to see him in consultation at this time as I have operated on him previously. A bowel pre p was ordered yesterday and the patient drank less than a third of this before he decided that he was not going to drink anymore because he again did not want to have surgery. His nurses all day yester day and through the night counseled him regarding the bowel prep and surgery as well as his diagnosis and he still refuses to cooperate. He has been seen by his Hospitalist as well as gastroenterologis t to have also reiterated the magnitude of his problem and he still remains noncompliant and still do es not want to have surgery. PAST MEDICAL HISTORY: 1. Malignant hypertension. 2. Diabetes mellitus. 3. Polysubstance abuse with recent cocaine use. 4. Ongoing tobacco abuse. 5. Colon cancer. 6. Recent anemia. 7. Hepatitis B. 8. Hepatitis C. 9. Chronic kidney disease. PAST SURGICAL HISTORY: Laparoscopic cholecystectomy in 2013. He has had upper and lower endoscopy r ecently as well. ALLERGIES: No known drug allergies. HOME MEDICATIONS: Includes insulin, atorvastatin, aspirin, Catapres, nifedipine, isosorbide, furosem baldev, metformin. He is self admittedly noncompliant with many of his medications. PERSONAL/SOCIAL HISTORY: He is single and has never been , he has no children and lives with his sister. He does not work. He smokes actively, although he is elusive in regards to how much. H e drinks regularly and states he drinks somewhere between a six pack per day and a six pack per week. He smokes marijuana occasionally and uses cocaine occasionally. REVIEW OF SYSTEMS: Otherwise, unremarkable. FAMILY HISTORY: Noncontributory. PHYSICAL EXAMINATION: VITAL SIGNS: Temperature is 98.5, pulse 78, blood pressure 128/67. Of note, when he was first admit jose to the floor he was 177/84 and during much of his hospitalization last week he had a blood pressu re of 200/100 or higher. HEENT: Unremarkable. NECK: Supple. LUNGS: Clear to auscultation. CARDIAC: Regular rate and rhythm. ABDOMEN: Mildly protuberant, but soft and nontender, without palpable mass. EXTREMITIES: Unremarkable. LABORATORY AND X-RAY FINDINGS: As referenced above as well as x-rays referenced above. ASSESSMENT: Patient with colon cancer of the splenic flexure of his colon. This is certainly the so urce of his mild anemia before. He may have had some other oozing from this following his colonoscop y. I spent quite a while last night and again this morning explaining the magnitude of his problems and explained that the only real option for any form of treatment is surgical resection of the cance r. He states resolutely that he does not want surgery. In the bluntest terms possible I told him th at his two options are to have surgery which would likely eliminate the malignancy as there is no def inite evidence of spread or to go home, which would certainly lead to his in the short term fro m problems related to anemia and in the long-term from cancer if somehow the anemia did progress. I strongly recommended surgery and expressed my desire to help him in the overwhelming likelihood that he has a safe surgery and is able to be discharged in 2-3 days essentially on a regular diet. In spi te of all of this, he is persistent in his desire to avoid surgery, although for unknown reasons. At this point, there is nothing further I have to offer. There is no point in continuing his bowel p rep and he may resume eating. From my standpoint, he may be discharged home at any time. He is anem ic with a hemoglobin of 7 in a patient with substantial medical problems; however, this is unlikely t o resolve with anything short of the colon resection. I would be happy to reevaluate him at the poin t that he returns (when he returns), but until he decides to proceed with surgical resection of his m alignancy, then there is really not much point in further surgical evaluation. Please contact me if I may be of further assistance in this patient's care.
[2017-09-14] MEDS: NIFEdipine XL 90 MG TAB PO SCH (09:44)
[2017-09-14] MEDS: Insulin NPH/Reg Insulin Hm 300 UNITS/3 ML VIAL SC SCH (10:26)
--- NOTE | 2017-09-14 10:38 | PDOC.PN ---
- Subjective Encounter Start Date: 09/14/17 Encounter Start Time: 10:34 Subjective: absolutely no insight after multiple discussions with Dr De Los Santos and myself - Objective Resuscitation Status: Resuscitation Status FULL:Full Resuscitation MAR Reviewed: Yes Vital Signs & Weight: Vital Signs (12 hours) Temp Pulse Resp BP BP Pulse Ox 09/14/17 09:44 77 126/67 09/14/17 09:42 77 16 126/67 09/14/17 07:15 98.5 F 78 16 92 L 09/14/17 07:12 98.5 F 78 16 128/67 92 L 09/14/17 04:00 98.4 F 76 18 113/56 L 96 09/14/17 00:00 98.1 F 79 16 132/79 94 L Weight Weight 202 lb 3.2 oz I&O: 09/13/17 09/14/17 09/15/17 06:59 06:59 06:59 Intake Total 4951 Output Total 1175 Balance 3776 Result Diagrams: 09/14/17 00:02 09/14/17 05:14 Additional Labs: Accuchecks 09/14/17 09/13/17 09/13/17 05:39 20:13 16:55 POC Glucose 185 H 276 H 239 H 09/13/17 12:47 POC Glucose 265 H Phys Exam - Physical Examination Constitutional: NAD Neck: no JVD Respiratory: clear to auscultation bilateral Cardiovascular: RRR, no significant murmur Gastrointestinal: soft, non-tender, positive bowel sounds Musculoskeletal: no edema Dx/Plan (1) Lower GI bleeding Code(s): K92.2 - GASTROINTESTINAL HEMORRHAGE, UNSPECIFIED Status: Acute (2) Anemia due to blood loss, acute Code(s): D62 - ACUTE POSTHEMORRHAGIC ANEMIA Status: Acute (3) Adenocarcinoma, colon Code(s): C18.9 - MALIGNANT NEOPLASM OF COLON, UNSPECIFIED Status: Acute (4) Acute on chronic kidney disease, stage 4 Code(s): N28.9 - DISORDER OF KIDNEY AND URETER, UNSPECIFIED; N18.4 - CHRONIC KIDNEY DISEASE, STAGE 4 (SEVERE) Status: Chronic (5) Chronic kidney disease Code(s): N18.9 - CHRONIC KIDNEY DISEASE, UNSPECIFIED Status: Chronic Qualifiers: Chronic kidney disease stage: stage 4 (severe) Qualified Code(s): N18.4 - Chronic kidney disease, stage 4 (severe) (6) Cocaine abuse Code(s): F14.10 - COCAINE ABUSE, UNCOMPLICATED Status: Chronic (7) Coronary artery disease Code(s): I25.10 - ATHSCL HEART DISEASE OF [place] CORONARY ARTERY W/O ANG PCTRS Status: Chronic Qualifiers: Coronary Disease-Associated Artery/Lesion type: [place] artery [place] vs. transplanted heart: [place] heart Associated angina: without angina Qualified Code(s): I25.10 - Atherosclerotic heart disease of [place] coronary artery without angina pectoris Comment: Stable.. elevated troponin due to CKD+ROMAINE. Seen by cardiology. (8) Diabetes mellitus type 2 in nonobese Code(s): E11.9 - TYPE 2 DIABETES MELLITUS WITHOUT COMPLICATIONS Status: Chronic - Plan cont to monitor H&H -: cont accu /ss -: continue discussion with Pt * .
[2017-09-14] MEDS: HumaLOG 300 UNITS/3 ML VIAL SC PRN ×2 (12:51→17:29)
[2017-09-14] MEDS: Atorvastatin Calcium 40 MG TAB PO SCH (20:37)
[2017-09-15] MEDS: Neomycin 500 mg Tablet PO SCH ×3 (00:41→17:27)
[2017-09-15] MEDS: Erythromycin Base 250 MG TAB PO SCH ×4 (04:00→20:12)
[2017-09-15] MEDS: Sodium Chloride 0.9% 1,000 ML IV SCH ×2 (04:03→15:00)
[2017-09-15] MEDS: HumaLOG 300 UNITS/3 ML VIAL SC PRN ×3 (05:43→16:38)
[2017-09-15] MEDS: Carvedilol 25 MG TAB PO SCH (08:36)
[2017-09-15] MEDS: NIFEdipine XL 90 MG TAB PO SCH (08:37)
[2017-09-15] MEDS: Insulin NPH/Reg Insulin Hm 300 UNITS/3 ML VIAL SC SCH (09:13)
--- NOTE | 2017-09-15 11:12 | PDOC.PN ---
- Subjective Encounter Start Date: 09/15/17 Encounter Start Time: 11:07 Subjective: a little dizzy, still passing blood pr - Objective Resuscitation Status: Resuscitation Status FULL:Full Resuscitation MAR Reviewed: Yes Vital Signs & Weight: Vital Signs (12 hours) Temp Pulse Resp BP Pulse Ox 09/15/17 08:44 98.5 F 84 18 147/79 H 91 L 09/15/17 08:37 83 09/15/17 08:00 98.5 F 84 18 09/15/17 05:00 98.6 F 83 18 137/79 92 L 09/15/17 00:00 98.6 F 75 18 109/67 92 L Weight Weight 202 lb 3.2 oz I&O: 09/14/17 09/15/17 09/16/17 06:59 06:59 06:59 Intake Total 4951 2000 Output Total 1175 600 Balance 3776 1400 Result Diagrams: 09/15/17 11:18 09/14/17 05:14 Additional Labs: Accuchecks 09/15/17 09/15/17 09/14/17 09:13 05:22 20:38 POC Glucose 184 H 254 H 213 H 09/14/17 09/14/17 16:35 11:16 POC Glucose 179 H 265 H Phys Exam - Physical Examination Constitutional: NAD Neck: no JVD Respiratory: clear to auscultation bilateral Cardiovascular: RRR, no significant murmur Gastrointestinal: soft, positive bowel sounds Musculoskeletal: no edema Dx/Plan (1) Lower GI bleeding Code(s): K92.2 - GASTROINTESTINAL HEMORRHAGE, UNSPECIFIED Status: Acute (2) Anemia due to blood loss, acute Code(s): D62 - ACUTE POSTHEMORRHAGIC ANEMIA Status: Acute (3) Adenocarcinoma, colon Code(s): C18.9 - MALIGNANT NEOPLASM OF COLON, UNSPECIFIED Status: Acute (4) Acute on chronic kidney disease, stage 4 Code(s): N28.9 - DISORDER OF KIDNEY AND URETER, UNSPECIFIED; N18.4 - CHRONIC KIDNEY DISEASE, STAGE 4 (SEVERE) Status: Chronic (5) Chronic kidney disease Code(s): N18.9 - CHRONIC KIDNEY DISEASE, UNSPECIFIED Status: Chronic Qualifiers: Chronic kidney disease stage: stage 4 (severe) Qualified Code(s): N18.4 - Chronic kidney disease, stage 4 (severe) (6) Cocaine abuse Code(s): F14.10 - COCAINE ABUSE, UNCOMPLICATED Status: Chronic (7) Coronary artery disease Code(s): I25.10 - ATHSCL HEART DISEASE OF [place] CORONARY ARTERY W/O ANG PCTRS Status: Chronic Qualifiers: Coronary Disease-Associated Artery/Lesion type: [place] artery [place] vs. transplanted heart: [place] heart Associated angina: without angina Qualified Code(s): I25.10 - Atherosclerotic heart disease of [place] coronary artery without angina pectoris Comment: Stable.. elevated troponin due to CKD+ROMAINE. Seen by cardiology. (8) Diabetes mellitus type 2 in nonobese Code(s): E11.9 - TYPE 2 DIABETES MELLITUS WITHOUT COMPLICATIONS Status: Chronic - Plan check cbc, transfuse prn -: still no insight into his problem, declines surgery * .
[2017-09-15 11:28] LABS: #Eosinphils 0.2 thou/uL (0.0-0.7); #Monocytes 0.6 thou/uL (0.11-0.59); #Neutrophils 6.1 thou/uL (1.40-6.50); %Basophils 0.2 % (0.0-1.0); %Eosinophils 2.5 % (0.0-10.0); %Lymphocytes 13.1 % (21.0-51.0); %Neutrophils 77.1 % (42.0-75.0); Hemoglobin 7.5 g/dL (14.0-18.0); Mean Corpuscular HGB CONC 32.8 g/dL (32.0-36.0); Mean Corpuscular Hemoglobin 29.2 pg (27.0-31.0); Mean Platelet Volume 7.4 fL (7.4-10.4); Platelet Count 213 thou/uL (130-400); RBC Distribution Width 13.9 % (11.5-14.5); Red Blood Cell (RBC) Count 2.58 mill/uL (4.70-6.10); White Blood Cell (WBC) Count 7.8 thou/uL (4.8-10.8)
[2017-09-15 14:34] LABS: Actual Bicarbonate (HCO3a) 16.8 mEq/L (22-26); Base Excess (BEa) -6.1 mEq/L (0 (+/-) 2.5); Calcium, Ionized 1.2 mmol/L (1.12-1.30); Hematocrit-ABG 23.7 % (42.0-52.0); Hemoglobin (Hb) 7.1 g/dL (14.0-18.0); O2 Tension (PaO2) 56.7 mmHg (80.0-100.0); pH, Arterial 7.47 (7.35-7.45)
[2017-09-15 14:37] LABS: ALV-art Gradient 269.925 (0-20); CO2 Tension 23.9 mmHg (35.0-45.0); Puncture Site RR
[2017-09-15] MEDS ORDERED: Dextrose 50% Abboject 50 ML SYRINGE SLOW IVP PRN (14:43)
[2017-09-15] MEDS ORDERED: Dextrose 5% in Water 1,000 ML IV PRN (14:43)
[2017-09-15] MEDS ORDERED: Sodium Chloride 0.9% 1,000 ML IV SCH (14:45)
--- NOTE | 2017-09-15 14:47 | PDOC.PN ---
- Subjective Encounter Start Date: 09/15/17 Encounter Start Time: 14:46 Subjective: code green, BP 60 - Objective Resuscitation Status: Resuscitation Status FULL:Full Resuscitation MAR Reviewed: Yes Vital Signs & Weight: Vital Signs (12 hours) Temp Pulse Resp BP Pulse Ox 09/15/17 14:42 93 L 09/15/17 08:44 98.5 F 84 18 147/79 H 91 L 09/15/17 08:37 83 09/15/17 08:00 98.5 F 84 18 09/15/17 05:00 98.6 F 83 18 137/79 92 L Weight Weight 202 lb 3.2 oz I&O: 09/14/17 09/15/17 09/16/17 06:59 06:59 06:59 Intake Total 4951 2000 Output Total 1175 600 Balance 3776 1400 Result Diagrams: 09/15/17 11:18 09/14/17 05:14 Additional Labs: Accuchecks 09/15/17 09/15/17 09/15/17 14:20 11:14 09:13 POC Glucose 215 H 190 H 184 H 09/15/17 09/14/17 09/14/17 05:22 20:38 16:35 POC Glucose 254 H 213 H 179 H Phys Exam - Physical Examination obtunded Neck: no nodes rhonchi Cardiovascular: RRR, no significant murmur Gastrointestinal: soft, positive bowel sounds Musculoskeletal: edema present Deviation from normal: clammy Dx/Plan (1) Hypotension Status: Acute Qualifiers: Hypotension type: other hypotension type Qualified Code(s): I95.89 - Other hypotension (2) Lower GI bleeding Code(s): K92.2 - GASTROINTESTINAL HEMORRHAGE, UNSPECIFIED Status: Acute (3) Anemia due to blood loss, acute Code(s): D62 - ACUTE POSTHEMORRHAGIC ANEMIA Status: Acute (4) Adenocarcinoma, colon Code(s): C18.9 - MALIGNANT NEOPLASM OF COLON, UNSPECIFIED Status: Acute (5) Acute on chronic kidney disease, stage 4 Code(s): N28.9 - DISORDER OF KIDNEY AND URETER, UNSPECIFIED; N18.4 - CHRONIC KIDNEY DISEASE, STAGE 4 (SEVERE) Status: Chronic (6) Chronic kidney disease Code(s): N18.9 - CHRONIC KIDNEY DISEASE, UNSPECIFIED Status: Chronic Qualifiers: Chronic kidney disease stage: stage 4 (severe) Qualified Code(s): N18.4 - Chronic kidney disease, stage 4 (severe) (7) Cocaine abuse Code(s): F14.10 - COCAINE ABUSE, UNCOMPLICATED Status: Chronic (8) Coronary artery disease Code(s): I25.10 - ATHSCL HEART DISEASE OF [place] CORONARY ARTERY W/O ANG PCTRS Status: Chronic Qualifiers: Coronary Disease-Associated Artery/Lesion type: [place] artery [place] vs. transplanted heart: [place] heart Associated angina: without angina Qualified Code(s): I25.10 - Atherosclerotic heart disease of [place] coronary artery without angina pectoris Comment: Stable.. elevated troponin due to CKD+ROMAINE. Seen by cardiology. (9) Diabetes mellitus type 2 in nonobese Code(s): E11.9 - TYPE 2 DIABETES MELLITUS WITHOUT COMPLICATIONS Status: Chronic - Plan probable recurrent GI bleed, has consistently refused surgery -: iv ns resuscitation, transfuse 2 units PRBC -: H&H Q6h, PT/INR, CXR, EKG -: frequent exams -: 45 min citical care * .
[2017-09-15 14:56] LABS: INR-International Normal Ratio 1.1; Prothrombin Time 13.9 SEC (12.0-14.7)
[2017-09-15] MEDS ORDERED: Norepinephrine 8 MG/0.9% NS 250 ML ONE (15:02)
[2017-09-15] MEDS ORDERED: Norepinephrine 8 MG/0.9% NS 250 ML IVPB SCH (15:45)
[2017-09-15 15:53] LABS: Actual Bicarbonate (HCO3a) 17.7 mEq/L (22-26); Base Excess (BEa) -6.9 mEq/L (0 (+/-) 2.5); CO2 Tension 31.2 mmHg (35.0-45.0); Calcium, Ionized 1.1 mmol/L (1.12-1.30); Hematocrit-ABG 22.1 % (42.0-52.0); Hemoglobin (Hb) 6.7 g/dL (14.0-18.0); pH, Arterial 7.37 (7.35-7.45)
--- NOTE | 2017-09-15 15:53 | RAD ---
1 VIEW CHEST: Date: 09/15/17 HISTORY: Possible aspiration. COMPARISON: 09/13/17. FINDINGS: Normal cardiac silhouette. Pulmonary vessels are within normal limits. Costophrenic angles are clear . No consolidation or mass. No pneumothorax or osseous abnormalities. IMPRESSION: No acute cardiopulmonary process. POS: KRISHNA
[2017-09-15 15:55] LABS: Puncture Site CENTRAL LINE
--- NOTE | 2017-09-15 15:57 | OP ---
DATE OF SURGERY: 09/15/2017 PROCEDURE: Left subclavian central line placement. PREOPERATIVE DIAGNOSIS: Hypotension. POSTOPERATIVE DIAGNOSIS: Successful central line placement. DESCRIPTION OF PROCEDURE: The patient was placed in the Trendelenburg position. The procedure was d one under emergent conditions as the patient is unable to give consent herself and family was not her e. The left subclavian area was cleansed with chlorhexidine and draped sterilely. 1% lidocaine was used to infiltrate the insertion site. Using the modified Seldinger technique, a triple lumen catheter w as placed in the left subclavian vein. Three ports flushed venous blood. Postoperative x-ray is pen ding.
--- NOTE | 2017-09-15 16:17 | RAD ---
PORTABLE CHEST: Date: 09/15/17 HISTORY: Assess central line placement. FINDINGS: A left subclavian line was placed. The tip is to the left of the spine overlying the left chest and i s in aberrant position. Findings were discussed with Dr. Haynes. Venous blood was recovered from this catheter and it appear ed to exhibit adequate function. Comparison made to a chest CT angio of 04/17/14. That exam does confirm a duplicated superior vena ca va which would correspond to the position of this central line placed in the left duplicated SVC. There are bilateral lung infiltrates. No pneumothorax. IMPRESSION: Patient has a duplicated superior vena cava. The central line is in the left superior vena cava, whic h is confirmed on CT angio of 04/17/14. Findings discussed with Dr. Haynes. CODE CR. POS: KRISHNA
[2017-09-15 16:20] LABS: #Basophils 0.1 thou/uL (0.0-0.2); #Eosinphils 0.3 thou/uL (0.0-0.7); #Lymphocytes 1.2 thou/uL (1.20-3.40); #Monocytes 0.8 thou/uL (0.11-0.59); #Neutrophils 7.9 thou/uL (1.40-6.50); %Basophils 0.5 % (0.0-1.0); %Eosinophils 2.8 % (0.0-10.0); %Lymphocytes 11.9 % (21.0-51.0); %Monocytes 7.4 % (0.0-10.0); %Neutrophils 77.4 % (42.0-75.0); Hemoglobin 7.7 g/dL (14.0-18.0); Mean Corpuscular HGB CONC 32.8 g/dL (32.0-36.0); Mean Corpuscular Hemoglobin 29.6 pg (27.0-31.0); Mean Corpuscular Volume 90.1 fl (80.0-94.0); Platelet Count 252 thou/uL (130-400); RBC Distribution Width 14.3 % (11.5-14.5); White Blood Cell (WBC) Count 10.2 thou/uL (4.8-10.8)
[2017-09-15 16:30] LABS: ALT (SGPT) 9 U/L (8-55); AST (SGOT) 13 U/L (5-34); Albumin 2.8 g/dL (3.5-5.0); Alkaline Phosphatase 69 U/L (40-150); Anion Gap 12 mmol/L (10-20); BUN (Urea Nitrogen) 31 mg/dL (8.4-25.7); Bilirubin, Total 0.5 mg/dL (0.2-1.2); Calc. Creatinine Clearance 34 mL/min (70-130); Calcium 8.2 mg/dL (7.8-10.44); Carbon Dioxide 16 mmol/L (22-29); Chloride 109 mmol/L (98-107); Estimated GFR-MDRD 25; Globulin 2.9 g/dL (2.4-3.5); Glucose 197 mg/dL (70-105); Protein, Total 5.7 g/dL (6.0-8.3); Sodium 132 mmol/L (136-145)
[2017-09-15 20:41] LABS: Lactic Acid 1.5 mmol/L (0.5-2.2)
--- NOTE | 2017-09-15 23:14 | CON ---
DATE OF CONSULTATION: 09/15/2017 CONSULTING PHYSICIAN: Dr. Sandhu. REASON FOR CONSULTATION: Hypotension. HISTORY OF PRESENT ILLNESS: The patient is a 57-year-old male, who was admitted to the hospital 2 da ys ago. He was transported to the CCU earlier today for low blood pressure. He has apparently here in the hospital for workup of lower gastrointestinal bleeding, which is thought secondary to adenocar cinoma of the colon, which is abating at the splenic flexure. My understanding is he has refused autumn gical intervention, but is not DNR. PAST MEDICAL HISTORY: 1. Colon cancer that has not been treated 2. Malignant hypertension. 3. Diabetes mellitus. 3. Cocaine use. 4. Anemia. 5. Hepatitis B. 6. Hepatitis C. 7. Chronic kidney disease. PAST SURGICAL HISTORY: Laparoscopic cholecystectomy in 2012. ALLERGIES: None. MEDICATIONS PRIOR TO ADMISSION: Insulin, atorvastatin, aspirin, Catapres, nifedipine, isosorbide, fu rosemide, and metformin. SOCIAL HISTORY: Apparently uses cocaine regularly, drinks regularly, smokes marijuana occasionally. REVIEW OF SYSTEMS: Cannot be obtained secondary to patient's altered mental status. PHYSICAL EXAMINATION: VITAL SIGNS: Pulse is 53, blood pressure 99/60, O2 saturation 96%, and respiratory rate 18. GENERAL: The patient is somnolent. He is arousable, but his words are incoherent. HEENT: Pupils react. Sclerae are anicteric. Oropharynx dry. NECK: No JVD. LUNGS: Clear anteriorly. CARDIOVASCULAR: S1 and S2, slightly bradycardic. ABDOMEN: Soft, slightly tender around the left upper quadrant. EXTREMITIES: No clubbing, cyanosis, or edema. Chest x-ray obtained earlier today demonstrates cardiomegaly, may have a small left pleural effusion. LABORATORY DATA: White blood cells 7.8, hematocrit 23, platelet count 213. INR 1.1, pH 7.47, pCO2 o f 24, pO2 of 57 and that is on a VentiMask. Sodium 130, potassium 5.0, chloride 106, CO2 of 21, BUN 26, creatinine 2.6, and glucose 161. ASSESSMENT: 1. Hypotension - this may be secondary to volume depletion in concert with continued administration of antihypertensives. 2. Colon cancer. 3. Diabetes mellitus. 4. Chronic kidney disease. 5. Substance abuse. PLAN: This is a difficult situation. The patient steadfastly refused to medical intervention for hi s issue. He is being transfused blood by the Hospitalist Service in an attempt to increase his H&H i n order to improve his blood pressure. He is being given Levophed for his hypotension. I have put a central line in for the administration of the Levophed. Despite this, his prognosis remains poor. I have held his antihypertensive medications.
[2017-09-16] MEDS ORDERED: Furosemide 40 MG/4 ML VIAL SLOW IVP SCH (00:01)
[2017-09-16] MEDS ORDERED: Furosemide 40 MG/4 ML VIAL ONE (00:06)
[2017-09-16] MEDS: Neomycin 500 mg Tablet PO SCH ×3 (00:11→16:13)
[2017-09-16] MEDS: Erythromycin Base 250 MG TAB PO SCH ×4 (01:32→20:02)
[2017-09-16] MEDS: Sodium Chloride 0.9% 1,000 ML IV SCH ×2 (01:32→13:35)
[2017-09-16 05:01] LABS: #Eosinphils 0.1 thou/uL (0.0-0.7); #Lymphocytes 1.1 thou/uL (1.20-3.40); #Monocytes 0.7 thou/uL (0.11-0.59); #Neutrophils 10.6 thou/uL (1.40-6.50); %Basophils 0.2 % (0.0-1.0); %Eosinophils 0.7 % (0.0-10.0); %Lymphocytes 8.8 % (21.0-51.0); %Monocytes 5.9 % (0.0-10.0); %Neutrophils 84.4 % (42.0-75.0); Hemoglobin 9.9 g/dL (14.0-18.0); Mean Corpuscular HGB CONC 32.8 g/dL (32.0-36.0); Mean Corpuscular Hemoglobin 29.1 pg (27.0-31.0); Mean Corpuscular Volume 88.8 fl (80.0-94.0); Mean Platelet Volume 7.6 fL (7.4-10.4); Platelet Count 220 thou/uL (130-400); RBC Distribution Width 14.3 % (11.5-14.5); Red Blood Cell (RBC) Count 3.39 mill/uL (4.70-6.10); White Blood Cell (WBC) Count 12.5 thou/uL (4.8-10.8)
[2017-09-16 05:06] LABS: Hemoglobin 9.9 g/dL (14.0-18.0); Platelet Count 215 thou/uL (130-400)
[2017-09-16 05:15] LABS: ALT (SGPT) 11 U/L (8-55); AST (SGOT) 16 U/L (5-34); Albumin 3.1 g/dL (3.5-5.0); Alkaline Phosphatase 79 U/L (40-150); Anion Gap 8 mmol/L (10-20); BUN (Urea Nitrogen) 30 mg/dL (8.4-25.7); Bilirubin, Total 1.1 mg/dL (0.2-1.2); Calc. Creatinine Clearance 37 mL/min (70-130); Calcium 8.5 mg/dL (7.8-10.44); Carbon Dioxide 21 mmol/L (22-29); Chloride 110 mmol/L (98-107); Estimated GFR-MDRD 27; Globulin 3.6 g/dL (2.4-3.5); Glucose 118 mg/dL (70-105); Protein, Total 6.7 g/dL (6.0-8.3); Sodium 134 mmol/L (136-145)
[2017-09-16] MEDS ORDERED: Furosemide 40 MG/4 ML VIAL IVP SCH (07:30)
--- NOTE | 2017-09-16 07:46 | PRG ---
DATE OF SERVICE: 09/16/2017 SUBJECTIVE: He feels better this morning. He is fully awake, he wants to eat. He has changed his m ind of having the colon surgery. PHYSICAL EXAMINATION: VITAL SIGNS: On exam, his temperature is 98.2, pulse 92, blood pressure 172/101, O2 sat 100% on 40% facemask. HEENT: Unremarkable. NECK: No JVD. LUNGS: Inspiratory crackles bilaterally. CARDIOVASCULAR: S1, S2, slightly tachycardic. ABDOMEN: Soft, slightly tender. EXTREMITIES: No clubbing, cyanosis, trace edema. LABORATORY DATA AND IMAGING: Sodium 134, potassium 5, chloride 110, CO2 21, BUN 30, creatinine 2.9, glucose 118. White blood cell count 12.5, hemoglobin 9.9, hematocrit 30.1, platelet count 220. His chest x-ray shows diffuse bilateral pulmonary infiltrates, worse on the right than the left. His sina tral line in the duplicated superior vena cava on the left is noted. ASSESSMENT: 1. Pulmonary edema secondary to aggressive fluid resuscitation yesterday in the phase of history of diastolic cardiac dysfunction. 2. Colon cancer at the splenic flexure. 3. Renal insufficiency. PLAN: 1. Diurese. 2. Restart antihypertensives. 3. Repeat chest x-ray tomorrow. 4. Follow labs. 5. General Surgery followup.
[2017-09-16] MEDS: NIFEdipine XL 90 MG TAB PO SCH (08:25)
[2017-09-16] MEDS: Carvedilol 6.25 MG TAB PO SCH ×2 (08:26→16:12)
--- NOTE | 2017-09-16 08:45 | PDOC.PN ---
- Subjective Encounter Start Date: 09/16/17 Encounter Start Time: 08:43 Subjective: no sob, etc - Objective Resuscitation Status: Resuscitation Status FULL:Full Resuscitation MAR Reviewed: Yes Vital Signs & Weight: Vital Signs (12 hours) Temp Pulse BP Pulse Ox 09/16/17 08:26 176/84 H 09/16/17 08:25 99 176/94 H 09/16/17 07:32 99 09/16/17 07:00 97.8 F 09/16/17 02:00 98.2 F 09/16/17 01:00 98.2 F 09/16/17 00:00 96 09/15/17 21:15 97.8 F 09/15/17 21:01 97.6 F Weight Weight 202 lb 3.2 oz Most Recent Monitor Data Heart Rate from ECG 93 NIBP 175/100 NIBP BP-Mean 112 Respiration from ECG 31 SpO2 100 I&O: 09/15/17 09/16/17 09/17/17 06:59 06:59 06:59 Intake Total 2000 2609 0 Output Total 600 2755 55 Balance 1400 -146 -55 Result Diagrams: 09/16/17 04:40 09/16/17 04:40 Additional Labs: Accuchecks 09/16/17 09/15/17 09/15/17 04:50 20:32 15:48 POC Glucose 118 H 161 H 256 H 09/15/17 09/15/17 09/15/17 14:20 11:14 09:13 POC Glucose 215 H 190 H 184 H Radiology Reviewed by me: Yes (CXR- diffuse pulmonary edema) Phys Exam - Physical Examination Constitutional: NAD Neck: no JVD diffuse rales , rhonchi Cardiovascular: RRR S1S2 clear Gastrointestinal: soft, no distention, positive bowel sounds Musculoskeletal: no edema Dx/Plan (1) Lower GI bleeding Code(s): K92.2 - GASTROINTESTINAL HEMORRHAGE, UNSPECIFIED Status: Acute (2) Anemia due to blood loss, acute Code(s): D62 - ACUTE POSTHEMORRHAGIC ANEMIA Status: Acute (3) Adenocarcinoma, colon Code(s): C18.9 - MALIGNANT NEOPLASM OF COLON, UNSPECIFIED Status: Acute (4) Acute on chronic kidney disease, stage 4 Code(s): N28.9 - DISORDER OF KIDNEY AND URETER, UNSPECIFIED; N18.4 - CHRONIC KIDNEY DISEASE, STAGE 4 (SEVERE) Status: Chronic (5) Chronic kidney disease Code(s): N18.9 - CHRONIC KIDNEY DISEASE, UNSPECIFIED Status: Chronic Qualifiers: Chronic kidney disease stage: stage 4 (severe) Qualified Code(s): N18.4 - Chronic kidney disease, stage 4 (severe) (6) Cocaine abuse Code(s): F14.10 - COCAINE ABUSE, UNCOMPLICATED Status: Chronic (7) Coronary artery disease Code(s): I25.10 - ATHSCL HEART DISEASE OF [place] CORONARY ARTERY W/O ANG PCTRS Status: Chronic Qualifiers: Coronary Disease-Associated Artery/Lesion type: [place] artery [place] vs. transplanted heart: [place] heart Associated angina: without angina Qualified Code(s): I25.10 - Atherosclerotic heart disease of [place] coronary artery without angina pectoris Comment: Stable.. elevated troponin due to CKD+ROMAINE. Seen by cardiology. (8) Diabetes mellitus type 2 in nonobese Code(s): E11.9 - TYPE 2 DIABETES MELLITUS WITHOUT COMPLICATIONS Status: Chronic (9) Pulmonary edema Code(s): J81.1 - CHRONIC PULMONARY EDEMA Status: Acute Qualifiers: Chronicity: acute Qualified Code(s): J81.0 - Acute pulmonary edema (10) Hypotension Status: Acute Qualifiers: Hypotension type: other hypotension type Qualified Code(s): I95.89 - Other hypotension - Plan DVT proph w/heparin hypotension resolved, reinstituting antihypertensives -: anemia stable post transfusuion -: pulmonary edema from [employer], iv resuscitation- diurese -: now agreeable to surgery -: frequent reevaluations * .
--- NOTE | 2017-09-16 09:28 | RAD ---
PORTABLE AP CHEST XRAY: DATE: 09/16/17. HISTORY: Hypotensive. Followup evaluation. COMPARISON: 09/15/17. FINDINGS: Left subclavian central venous catheter is again noted in place with the tip again to the left of mid line in aberrant location. However, the patient had a prior CT examination confirming placement of a duplicated SVC. The position of the catheter was also discussed with referring physician on prior e xam. There has been interval increase in bilateral perihilar, interstitial, and alveolar opacities w ith greater parenchymal opacity now present. Findings may be related to worsening bilateral pulmonar y edema or worsening bilateral infectious process. There are probable small bilateral pleural effusi ons, greater on the right. The cardiac silhouette is stable in size. No other interval change. IMPRESSION: 1. Interval increase in bilateral perihilar, interstitial, and alveolar opacities, much more promine nt on the right on today's examination. As noted above, these findings may be related to worsening p ulmonary edema or infectious process. 2. Probable small bilateral pleural effusions. 3. Aberrant location of the left subclavian catheter, which is a stable finding. The patient is not ed to have a duplicated superior vena cava. POS: OFF
--- NOTE | 2017-09-16 10:55 | PRG ---
DATE OF SERVICE: 09/16/2017 HISTORY OF PRESENT ILLNESS: Mr. Loo has now been hospitalized since the secondary to bleeding from colorectal cancer. I last saw him on 09/14/2017 when he was abjectly refusing to proceed with the recommended surgery. Yesterday, one day after I had seen him, he coded, became obtunded, and wa s markedly hypotensive. He was urgently transferred to the Intensive Care Unit where he was seen by Dr. Haynes. A left subclavian central line was placed. He was started on intravenous pressors and administered a significant volume of fluid which eventually included 2 units of packed red blood cell s. His hypotension resolved and he seemed to become more stable. After he had recovered from this e pisode, he had a change of heart and decided that he was now mentally prepared to proceed with a colo n resection. I am therefore asked to reevaluate him. He currently complains of some mild respiratory difficulty. It is noted that he has significant pulm onary edema on his chest x-ray today. This is likely related to his high volume resuscitation yester day. Diuresis has been initiated. The patient's hypotension resolved completely and he is no longer on pressors. He is actually requiring antihypertensive medication. He has no complaints of abdomin al pain. He notes that he is hungry. PHYSICAL EXAMINATION: VITAL SIGNS: On examination today he is afebrile with temperature of 98.4. It is noted that he has been afebrile over the past few days. His pulse currently is 90 and regular, blood pressure currentl y is 146/77, oxygen saturation is between 95 and 100% with supplemental oxygen. LUNGS: On examination his lungs reveal some crackles posteriorly. CARDIAC: His heart is regular rate and rhythm. ABDOMEN: Mildly to moderately protuberant, but soft and nontender. Bowel sounds are present. EXTREMITIES: Unremarkable. LABORATORY STUDIES: His hemoglobin today is 9.9 up from 7.7 yesterday. This is after being transfus ed 2 units of packed red blood cells. White blood cell count is 12.5, up from 10.2 and platelet coun t is normal at 220. Chemistry profile reveals that his creatinine is elevated at 2.9. This is sligh tly higher than his baseline. He has some mild electrolyte irregularities. Glucose is relatively we ll controlled at 118 today. Albumin is low at 3.1, but stable for him over this hospitalization. ASSESSMENT AND PLAN: Patient with colon cancer at the splenic flexure. He had an acute hypotensive event yesterday for which he required aggressive intervention and resuscitation. I am not exactly ce rtain what this event was, but in some fashion I suspect it is related to his underlying medical cond ition compounded by his fairly pronounced anemia. I think that he would still benefit from resection of his cancer as this is what is causing his anemia, as of today, not an appropriate candidate for s sophia. I would recommend medical stabilization over the next few days. Today is currently , and if he remains stable over the weekend then I believe it would be reasonable to proceed with a l aparoscopic left hemicolectomy on Wednesday. He will certainly require a full bowel prep prior to this surgery. Because of his underlying medical and social issues he still is a higher risk patient. I victoria ha discussed this with Dr. Haynes, who agrees depending upon his course over the next few days. Th e patient is to remain in the Intensive Care Unit today because of his pulmonary edema and desires to complete his stabilization. I will continue to follow.
[2017-09-16] MEDS: Piperacillin/Tazobactam 3.375 GM in Sodium Chloride 0.9% 100 ML IVPB SCH ×2 (11:31→17:41)
[2017-09-16] MEDS: HumaLOG 300 UNITS/3 ML VIAL SC PRN ×2 (11:36→20:13)
[2017-09-16 11:38] LABS: CKMB 2.7 ng/mL (0-6.6); Troponin I 0.023 ng/mL (< 0.028)
[2017-09-17] MEDS: Piperacillin/Tazobactam 3.375 GM in Sodium Chloride 0.9% 100 ML IVPB SCH ×5 (00:09→23:36)
[2017-09-17] MEDS: Neomycin 500 mg Tablet PO SCH ×3 (00:10→16:27)
[2017-09-17] MEDS: Erythromycin Base 250 MG TAB PO SCH ×4 (01:56→20:27)
[2017-09-17 05:18] LABS: #Eosinphils 0.2 thou/uL (0.0-0.7); #Neutrophils 10.6 thou/uL (1.40-6.50); %Basophils 0.2 % (0.0-1.0); %Eosinophils 1.5 % (0.0-10.0); %Lymphocytes 7.9 % (21.0-51.0); %Monocytes 7.5 % (0.0-10.0); %Neutrophils 82.9 % (42.0-75.0); Hemoglobin 9.3 g/dL (14.0-18.0); Mean Corpuscular HGB CONC 32.3 g/dL (32.0-36.0); Mean Corpuscular Hemoglobin 28.7 pg (27.0-31.0); Mean Corpuscular Volume 88.9 fl (80.0-94.0); Mean Platelet Volume 7.5 fL (7.4-10.4); Platelet Count 206 thou/uL (130-400); RBC Distribution Width 14.1 % (11.5-14.5); Red Blood Cell (RBC) Count 3.23 mill/uL (4.70-6.10); White Blood Cell (WBC) Count 12.8 thou/uL (4.8-10.8)
[2017-09-17 05:39] LABS: Anion Gap 11 mmol/L (10-20); BUN (Urea Nitrogen) 29 mg/dL (8.4-25.7); Calc. Creatinine Clearance 39 mL/min (70-130); Calcium 8.2 mg/dL (7.8-10.44); Carbon Dioxide 22 mmol/L (22-29); Chloride 105 mmol/L (98-107); Estimated GFR-MDRD 29; Glucose 167 mg/dL (70-105); Potassium 4.6 mmol/L (3.5-5.1); Sodium 133 mmol/L (136-145)
[2017-09-17] MEDS ORDERED: Carvedilol 6.25 MG TAB PO SCH (07:36)
[2017-09-17] MEDS ORDERED: Furosemide 20 MG/2 ML VIAL IVP SCH (07:45)
--- NOTE | 2017-09-17 08:10 | PRG ---
DATE OF SERVICE: 09/17/2017 The patient is actually doing better today. Dr. Liu started some Precedex last night. The patie nt is calm, very alert and cooperative. PHYSICAL EXAMINATION: VITAL SIGNS: Temperature is 98.2, pulse 86, blood pressure 133/68. 24 hour intake 2470, output 3635 . HEENT: Unremarkable. NECK: No JVD. CHEST: Fairly clear anteriorly. CARDIOVASCULAR: S1 and S2 regular. ABDOMEN: Soft. EXTREMITIES: No edema. LABORATORY DATA: White blood cell count 12.8, hematocrit 28.7, platelet count 206. Sodium 133, pota ssium 4.6, chloride 105, CO2 22, BUN 29, creatinine 2.7, glucose 167. ASSESSMENT: 1. Pulmonary edema, which has improved on serial x-rays; however, some edema still persists even on today's x-ray. 2. Colon cancer at the splenic flexure. 3. Renal insufficiency which is better. PLAN: 1. Continue diuresis. 2. Continue Precedex as needed. 3. Wean O2. 4. Continue Zosyn for possible aspiration pneumonitis.
[2017-09-17] MEDS: Carvedilol 25 MG TAB PO SCH ×2 (08:15→16:27)
[2017-09-17] MEDS: HumaLOG 300 UNITS/3 ML VIAL SC PRN ×4 (08:17→20:28)
--- NOTE | 2017-09-17 08:47 | RAD ---
FRONTAL RADIOGRAPH OF CHEST: Date: 09/17/17 COMPARISON: 09/16/17. HISTORY: Ventilated patient. FINDINGS: Stable. Prior CT demonstrates a duplicated superior vena cava. Heart and mediastinal contours are sta ble. There is no pneumothorax evident. There is prominent perihilar and bibasilar air space disease, nonspecific and unchanged. IMPRESSION: No significant interval change. POS: OFF
--- NOTE | 2017-09-17 08:57 | PRG ---
DATE OF SERVICE: 09/17/2017 HISTORY OF PRESENT ILLNESS: Mr. Loo remains in the Intensive Care Unit following his severe hypote nsive episode and code 2 days ago. He remained in the Intensive Care Unit yesterday because of fairl y severe pulmonary edema. He has responded well to diuresis. He put out over 3600 mL yesterday and did have a bowel movement yesterday. He was a little bit agitated overnight and was started on Prece dex with excellent results. He currently has no complaints. He is tolerating his diet. PHYSICAL EXAMINATION: VITAL SIGNS: He is afebrile with a pulse of 84 and a blood pressure of 142/74. LUNGS: Lungs are clear to auscultation anteriorly. CARDIAC: Regular rate and rhythm. ABDOMEN: Benign. LABORATORY STUDIES: His hemoglobin is relatively stable at 9.3 with a white blood cell count of 12.8 , his creatinine is 2.77, which is down from 2.93 in spite of his diuresis. ASSESSMENT: The patient with severe hypotensive episode a couple of days ago. He has ongoing proble ms with anemia related to his colon cancer. He at this time consents to proceeding with colon resect ion. Because of his recent hemodynamic instability, I have recommended stabilization prior to antonio ding. He still has substantial pulmonary edema on his chest x-ray today, although it seems to be imp roved from yesterday. Today is 09/17/2017. I will tentatively schedule him for Sep. I will check on him on Wednesday to see how he is doing and if all is stable at that point I will initiate a bowel prep for surgery.
[2017-09-17] MEDS: NIFEdipine XL 90 MG TAB PO SCH (09:16)
[2017-09-17] MEDS ORDERED: Norepinephrine 8 MG/0.9% NS 250 ML ONE ×2 (11:08→11:09)
--- NOTE | 2017-09-17 11:54 | PDOC.PN ---
- Subjective Encounter Start Date: 09/17/17 Encounter Start Time: 11:00 Confused, agitated.. - Objective Resuscitation Status: Resuscitation Status FULL:Full Resuscitation Vital Signs & Weight: Vital Signs (12 hours) Temp Pulse Pulse Pulse Resp BP BP 09/17/17 11:42 09/17/17 11:00 99.0 F 09/17/17 09:37 77 117/66 09/17/17 09:20 72 76 116/66 09/17/17 09:16 84 117/66 09/17/17 07:47 98.2 F 84 25 H 09/17/17 07:00 98.2 F 09/17/17 03:00 97.8 F BP Pulse Ox Pulse Ox 09/17/17 11:42 95 09/17/17 11:00 09/17/17 09:37 119/60 99 09/17/17 09:20 119/60 09/17/17 09:16 09/17/17 07:47 100 09/17/17 07:00 09/17/17 03:00 Weight Weight 202 lb 3.2 oz Most Recent Monitor Data Heart Rate from ECG 55 NIBP 79/55 NIBP BP-Mean 64 Respiration from ECG 28 SpO2 99 I&O: 09/16/17 09/17/17 09/18/17 06:59 06:59 06:59 Intake Total 2609 2470 600 Output Total 2755 6515 510 Balance -146 -1165 90 Result Diagrams: 09/17/17 04:55 09/17/17 04:55 Additional Labs: Accuchecks 09/17/17 09/16/17 09/16/17 08:18 20:11 16:03 POC Glucose 158 H 260 H 140 H 09/16/17 11:31 POC Glucose 185 H Phys Exam - Physical Examination HEENT: PERRLA Neck: no JVD Respiratory: clear to auscultation bilateral Cardiovascular: RRR Gastrointestinal: soft Musculoskeletal: no edema Neurological: moves all 4 limbs Dx/Plan (1) Adenocarcinoma, colon Code(s): C18.9 - MALIGNANT NEOPLASM OF COLON, UNSPECIFIED Status: Acute Plan: For surgery when stable.. (2) Anemia due to blood loss, acute Code(s): D62 - ACUTE POSTHEMORRHAGIC ANEMIA Status: Acute Plan: f/u hb/hct. Comment: due to above. (3) Hypotension Status: Acute Qualifiers: Hypotension type: other hypotension type Qualified Code(s): I95.89 - Other hypotension Comment: most likely due to Dexmedetomidine. (4) Lower GI bleeding Code(s): K92.2 - GASTROINTESTINAL HEMORRHAGE, UNSPECIFIED Status: Acute (5) ROMAINE (acute kidney injury) Code(s): N17.9 - ACUTE KIDNEY FAILURE, UNSPECIFIED Status: Acute Comment: Serum creatinine higher, consistant with ROMAINE + CKD. F/u chemistry.. (6) Acute on chronic congestive heart failure Code(s): I50.9 - HEART FAILURE, UNSPECIFIED Status: Acute Qualifiers: Congestive heart failure type: diastolic Qualified Code(s): I50.33 - Acute on chronic diastolic (congestive) heart failure Plan: f/u chest x-ray. (7) Delirium Code(s): R41.0 - DISORIENTATION, UNSPECIFIED Status: Acute Plan: Hold dexmedeomidine. Comment: most likely due to Dexmedetomidine.. - Plan * .
[2017-09-17] MEDS: Norepinephrine 8 MG/250 ML BAG IVPB PRN ×3 (14:26→23:49)
[2017-09-18] MEDS: Neomycin 500 mg Tablet PO SCH ×3 (00:10→16:19)
[2017-09-18] MEDS: Erythromycin Base 250 MG TAB PO SCH ×4 (03:12→20:43)
[2017-09-18] MEDS: HumaLOG 300 UNITS/3 ML VIAL SC PRN ×4 (04:43→20:46)
[2017-09-18 04:54] LABS: #Eosinphils 0.3 thou/uL (0.0-0.7); #Lymphocytes 1.6 thou/uL (1.20-3.40); #Neutrophils 9.3 thou/uL (1.40-6.50); %Basophils 0.2 % (0.0-1.0); %Eosinophils 2.5 % (0.0-10.0); %Lymphocytes 13.3 % (21.0-51.0); %Monocytes 7.8 % (0.0-10.0); %Neutrophils 76.2 % (42.0-75.0); Mean Corpuscular HGB CONC 32.9 g/dL (32.0-36.0); Mean Corpuscular Hemoglobin 29.1 pg (27.0-31.0); Mean Corpuscular Volume 88.4 fl (80.0-94.0); Mean Platelet Volume 7.5 fL (7.4-10.4); Platelet Count 248 thou/uL (130-400); RBC Distribution Width 13.8 % (11.5-14.5); Red Blood Cell (RBC) Count 3.08 mill/uL (4.70-6.10); White Blood Cell (WBC) Count 12.1 thou/uL (4.8-10.8)
[2017-09-18 05:30] LABS: Anion Gap 13 mmol/L (10-20); BUN (Urea Nitrogen) 42 mg/dL (8.4-25.7); Calc. Creatinine Clearance 25 mL/min (70-130); Calcium 8.3 mg/dL (7.8-10.44); Carbon Dioxide 19 mmol/L (22-29); Chloride 102 mmol/L (98-107); Estimated GFR-MDRD 17; Glucose 332 mg/dL (70-105); Potassium 4.2 mmol/L (3.5-5.1); Sodium 130 mmol/L (136-145)
[2017-09-18] MEDS: Piperacillin/Tazobactam 3.375 GM in Sodium Chloride 0.9% 100 ML IVPB SCH ×3 (05:53→17:27)
[2017-09-18] MEDS: Carvedilol 25 MG TAB PO SCH ×2 (08:37→16:18)
[2017-09-18] MEDS: NIFEdipine XL 90 MG TAB PO SCH (08:37)
[2017-09-18] MEDS ORDERED: Albumin 25% 25 GM/100 ML BOT IVPB ONE ×2 (10:25→10:45)
[2017-09-18] MEDS ORDERED: Albumin 25% 25 GM/100 ML BOT IVPB SCH (11:00)
--- NOTE | 2017-09-18 12:11 | PDOC.PN ---
- Subjective Encounter Start Date: 09/18/17 Encounter Start Time: 11:05 No complaint.. - Objective Resuscitation Status: Resuscitation Status FULL:Full Resuscitation Vital Signs & Weight: Vital Signs (12 hours) Temp Pulse Resp Pulse Ox 09/18/17 09:00 97.8 F 09/18/17 08:37 85 09/18/17 07:49 98.3 F 85 19 100 09/18/17 04:00 98.3 F Weight Weight 223 lb 12.307 oz Most Recent Monitor Data Heart Rate from ECG 72 NIBP 127/66 NIBP BP-Mean 98 Respiration from ECG 16 SpO2 92 I&O: 09/17/17 09/18/17 09/19/17 06:59 06:59 06:59 Intake Total 2470 3451 360 Output Total 3635 1000 60 Balance -1165 2451 300 Result Diagrams: 09/18/17 04:30 09/18/17 04:30 Additional Labs: Accuchecks 09/18/17 09/17/17 09/17/17 04:42 20:21 16:16 POC Glucose 327 H 211 H 247 H 09/17/17 11:47 POC Glucose 271 H Phys Exam - Physical Examination Constitutional: NAD HEENT: sclera anicteric Neck: no JVD Respiratory: clear to auscultation bilateral Cardiovascular: RRR Gastrointestinal: soft Musculoskeletal: no edema Neurological: moves all 4 limbs Psychiatric: A&O x 3 Dx/Plan (1) Adenocarcinoma, colon Code(s): C18.9 - MALIGNANT NEOPLASM OF COLON, UNSPECIFIED Status: Acute Plan: For surgery next week.. (2) Anemia due to blood loss, acute Code(s): D62 - ACUTE POSTHEMORRHAGIC ANEMIA Status: Acute Comment: due to above. (3) Hypotension Status: Acute Qualifiers: Hypotension type: other hypotension type Qualified Code(s): I95.89 - Other hypotension Plan: resolved.. Comment: most likely due to Dexmedetomidine. (4) Lower GI bleeding Code(s): K92.2 - GASTROINTESTINAL HEMORRHAGE, UNSPECIFIED Status: Acute Comment: hb/hct stable.. (5) ROMAINE (acute kidney injury) Code(s): N17.9 - ACUTE KIDNEY FAILURE, UNSPECIFIED Status: Acute Comment: Serum creatinine higher, consistant with ROMAINE + CKD. F/u chemistry.. (6) Acute on chronic congestive heart failure Code(s): I50.9 - HEART FAILURE, UNSPECIFIED Status: Acute Qualifiers: Congestive heart failure type: diastolic Qualified Code(s): I50.33 - Acute on chronic diastolic (congestive) heart failure Comment: clinically compensated...resolved (7) Delirium Code(s): R41.0 - DISORIENTATION, UNSPECIFIED Status: Acute Comment: most likely due to Dexmedetomidine.. Resolved.. - Plan * .
--- NOTE | 2017-09-18 14:24 | CON ---
DATE OF CONSULTATION: 09/18/2017 HISTORY OF PRESENT ILLNESS: Mr. Loo is a 57-year-old black male who was admitted due to malignant hypertension. He also had a recent colonoscopy, which was positive for adenocarcinoma. During this hospitalization, he was said to have gone into CHF. He is being diuresed. However, his renal functi on has been worsening for the last several days. Hence, the renal consultation. REVIEW OF SYSTEMS: No chest pain. Positive for mild shortness of breath. No nausea, no vomiting, n o diarrhea, no constipation, no syncopal episode, no gross hematuria, no dysuria, no urinary frequenc y, no headache, no diplopia, no fever or chills. No sore throat. No decreased hearing. Appetite an d energy level are fair. MEDICATIONS: Coreg 25 mg p.o. b.i.d., erythromycin 250 mg q.i.d., Humalog sliding scale, nifedipine 90 mg XL tab daily, Levophed as directed, Zosyn 3.375 grams q.6. PAST MEDICAL HISTORY: 1. Chronic renal failure secondary to possible hypertensive nephropathy? 2. Patient also has a history of chronic hepatitis B and C, status post cocaine use. 3. Type 2 diabetes mellitus. 4. Recent diagnosis of colon cancer. 5. Malignant hypertension. PAST SURGICAL HISTORY: Includes status post laparoscopic cholecystectomy, status post colonoscopy. ALLERGIES: None. TRAUMA: None. IMMUNIZATIONS: Up to date. HOSPITALIZATIONS: Please see past medical history. SOCIAL HISTORY: The patient is single. No children. Previously incarcerated. Lives in [place]. [facility] with his sister currently. Occasional alcohol. Denies any smoking. He denies any IV drug use, a lthough the history suggests he uses cocaine regularly and smokes marijuana. FAMILY HISTORY: Noncontributory. PHYSICAL EXAMINATION: VITAL SIGNS: Blood pressure is noted at 119/70, heart rate 74, respiratory rate 17, O2 sat 96%. GENERAL: Noted to be awake, supine, comfortable, not in distress. SKIN: Adequate turgor. HEENT: He has pinkish conjunctivae, anicteric sclerae. NECK: No neck mass, no carotid bruits, no JVD. CHEST: No deformities. LUNGS: Decreased breath sounds. No wheezing, no crackles. HEART: Normal sinus rhythm. No murmur, no gallops, no rubs. ABDOMEN: Globular, soft, nontender, no masses. EXTREMITIES: No edema, no deformities. LABORATORY DATA: Of 09/18/2017, white count 12.1, hemoglobin 9. Sodium 130, potassium 4.2, chloride 102, carbon dioxide 19, BUN 42, creatinine 4.29, glucose 232. Calcium 8.3. Further review of serum creatinine shows the following, 09/17/2017, creatinine 2.7; 09/16/2017, creatinine 2.93; 09/15/2017 creatinine 3.13. Urinalysis currently ordered and results are pending. ASSESSMENT AND PLAN: 1. Acute kidney injury on top of his chronic renal failure -- consider hemodynamically mediated trice l dysfunction. Please note, the patient received some IV contrast. At the same time has had episode s of hypotension in the last 24-48 hours. My bias since his congestive heart failure is clinically i mproved is to start him on salt poor albumin 25 grams IV q.6. At the current time, there is no indic ation for any dialytic intervention with this patient. Continue to optimize hemodynamics. I will re view the urinalysis to see if he has superimposed acute tubular necrosis. 2. Colon cancer -- surgery has evaluated this patient. The patient is tentatively being looked at f or a possible operative procedure -- colon resection. Awaiting until the patient is more stable from a medical point of view. Please note, Surgery is following. I did discuss at length the case with the patient regarding diagnosis and prognosis. Continue suppor tive care.
--- NOTE | 2017-09-18 14:34 | PRG ---
DATE OF SERVICE: 09/18/2017 SUBJECTIVE: Mr. Loo has no complaints today. He states he is feeling better. He wants his Carolina out. PHYSICAL EXAMINATION: VITAL SIGNS: Blood pressure 120/68, heart rate 74, respiratory rates in the low 20s. HEENT: Pupils reactive. LUNGS: Clear after he coughs. Prior to his cough, he had rhonchi bilaterally. HEART: Regular rhythm. ABDOMEN: Soft. EXTREMITIES: Without asymmetry. LABORATORY DATA AND IMAGING: Intake and output is positive 2451. White count is 12.1, hemoglobin 9. 0, and platelets 248. There is no chest radiograph today. IMPRESSION: 1. Pulmonary edema with Dr. Haynes notes it had improved over time. 2. History of colon cancer at the splenic flexure. 3. Renal insufficiency which is actually worse today. In spite of a positive fluid balance, his cre atinine has gone from 2.7 to 4.2. The patient wants his Carolina out. He will just have to continue to capture his urine via urinal for volume quantitation. Nephrology needs to be involved given his rise in his creatinine.
[2017-09-18] MEDS: Albumin 25% 25 GM/100 ML BOT IVPB SCH ×2 (17:27→23:53)
[2017-09-19] MEDS: Piperacillin/Tazobactam 3.375 GM in Sodium Chloride 0.9% 100 ML IVPB SCH ×4 (00:24→18:29)
[2017-09-19] MEDS: Neomycin 500 mg Tablet PO SCH ×3 (00:25→17:05)
[2017-09-19] MEDS: Erythromycin Base 250 MG TAB PO SCH ×4 (02:09→21:06)
[2017-09-19] MEDS: Albumin 25% 25 GM/100 ML BOT IVPB SCH ×4 (05:18→23:59)
[2017-09-19] MEDS: HumaLOG 300 UNITS/3 ML VIAL SC PRN ×4 (08:43→20:17)
[2017-09-19] MEDS: Carvedilol 25 MG TAB PO SCH ×2 (08:48→17:05)
[2017-09-19] MEDS: NIFEdipine XL 90 MG TAB PO SCH (08:49)
[2017-09-19] MEDS ORDERED: Enoxaparin Sodium 30 MG/0.3 ML SYRINGE SC SCH (09:00)
--- NOTE | 2017-09-19 10:20 | RAD ---
PORTABLE CHEST: HISTORY: Respiratory distress. COMPARISON: 09/17/17 exam. FINDINGS: Heart size is enlarged. The perihilar lung changes are showing some improvement, particularly some c hanges in the left lung as compared to the prior study. A left-sided subclavian line again has an ab errant course with the tip over the left side of the heart. 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 IMPRESSION: Improving interstitial and alveolar lung changes, particularly the left perihilar lung change. POS: MATTHIAS
[2017-09-19 11:05] LABS: Anion Gap 17 mmol/L (10-20); BUN (Urea Nitrogen) 45 mg/dL (8.4-25.7); Calc. Creatinine Clearance 22 mL/min (70-130); Calcium 8.4 mg/dL (7.8-10.44); Carbon Dioxide 17 mmol/L (22-29); Chloride 103 mmol/L (98-107); Estimated GFR-MDRD 13; Glucose 257 mg/dL (70-105); Potassium 4.2 mmol/L (3.5-5.1); Sodium 133 mmol/L (136-145)
--- NOTE | 2017-09-19 11:56 | PDOC.PN ---
- Subjective Encounter Start Date: 09/19/17 Encounter Start Time: 11:40 Subjective: No new complaint. -: Feels better. - Objective Resuscitation Status: Resuscitation Status FULL:Full Resuscitation Vital Signs & Weight: Vital Signs (12 hours) Temp Pulse BP 09/19/17 08:49 73 110/65 09/19/17 04:00 97.8 F 09/19/17 00:00 97.7 F Weight Weight 224 lb 13.944 oz Most Recent Monitor Data Heart Rate from ECG 70 NIBP 110/65 NIBP BP-Mean 74 Respiration from ECG 21 SpO2 96 I&O: 09/18/17 09/19/17 09/20/17 06:59 06:59 06:59 Intake Total 3451 2137 Output Total 1000 60 Balance 2451 2077 Result Diagrams: 09/18/17 04:30 09/19/17 10:36 Additional Labs: Accuchecks 09/19/17 09/19/17 09/18/17 08:36 02:03 20:46 POC Glucose 224 H 219 H 243 H 09/18/17 09/18/17 09/18/17 19:16 16:22 12:04 POC Glucose 277 H 325 H 292 H Phys Exam - Physical Examination HEENT: sclera anicteric Neck: no JVD Respiratory: clear to auscultation bilateral Cardiovascular: RRR Gastrointestinal: soft Musculoskeletal: no edema Neurological: moves all 4 limbs Psychiatric: A&O x 3 Dx/Plan (1) Adenocarcinoma, colon Code(s): C18.9 - MALIGNANT NEOPLASM OF COLON, UNSPECIFIED Status: Acute (2) Anemia due to blood loss, acute Code(s): D62 - ACUTE POSTHEMORRHAGIC ANEMIA Status: Acute Comment: due to above. (3) Hypotension Status: Acute Qualifiers: Hypotension type: other hypotension type Qualified Code(s): I95.89 - Other hypotension Comment: resolved.. (4) Lower GI bleeding Code(s): K92.2 - GASTROINTESTINAL HEMORRHAGE, UNSPECIFIED Status: Acute Comment: hb/hct stable.. (5) ROMAINE (acute kidney injury) Code(s): N17.9 - ACUTE KIDNEY FAILURE, UNSPECIFIED Status: Acute Comment: Serum creatinine higher, consistant with ROMAINE + CKD. Seen by nephrology. (6) Acute on chronic congestive heart failure Code(s): I50.9 - HEART FAILURE, UNSPECIFIED Status: Acute Qualifiers: Congestive heart failure type: diastolic Qualified Code(s): I50.33 - Acute on chronic diastolic (congestive) heart failure Comment: clinically compensated...resolved (7) Delirium Code(s): R41.0 - DISORIENTATION, UNSPECIFIED Status: Acute Comment: most likely due to Dexmedetomidine.. Resolved.. - Plan -: Continue current therapy. -: For surgery soon (related to colon cancer) * .
[2017-09-19 13:13] LABS: Bilirubin Negative (Negative); Blood, Urine Negative (Negative); Clarity CLOUDY (Clear); Glucose, Urine (Dipstick) 100 mg/dL (Negative); Leukocyte Negative (Negative); Nitrite Negative (Negative); Protein, Urine (Dipstick) 30 mg/dL (Neg-Trace); Specific Gravity, Urine 1.025 (1.002-1.036); Urobilinogen 0.2 mg/dL (0.2-1.0)
[2017-09-19 13:16] LABS: Bacteria/HPF Rare-Few HPF (None Seen); Pathc Cast-AUWi Flag 2.16 (0-2.49); RBC/HPF 0-3 HPF (0-3); Squamous Epithelial 0-3 HPF (0-3)
[2017-09-19 13:18] LABS: Yeast-AUWi Flag 383.7 (0-25.0)
[2017-09-19 13:40] LABS: Hyaline Casts/LPF 0-3 HYALINE CAST LPF (0-3 Hyaline); Other Casts/LPF 0-3 COARSE GRAN LPF (0-3 Hyaline)
[2017-09-19 13:41] LABS: Crystals/HPF 2+ AMORPH URATES HPF (Negative)
--- NOTE | 2017-09-19 15:29 | PRG ---
DATE OF SERVICE: 09/19/2017 SUBJECTIVE: Mr. Loo has no new complaints. He says he is feeling better. His intake and output is positive 2076. OBJECTIVE: VITAL SIGNS: He is afebrile, blood pressure 140/67, heart rate 72. LUNGS: Clear. HEART: Regular rhythm. ABDOMEN: Soft. LABORATORY DATA: White count 12.1, hemoglobin 9, platelets 248. No CBC was done today. BMP, sodium 133, potassium 4.2, chloride 103, bicarb 17, BUN 45, creatinine 5.37 up from 4.29. IMPRESSION: 1. Pulmonary edema, clinically stable. 2. History of colon cancer at the splenic flexure. 3. Renal insufficiency that is progressively worse, presumably secondary to acute tubular necrosis. 4. Anemia. 5. Obesity. Chest radiograph today has been reviewed and is actually improved with positive fluid balance. We wi ll continue current care.
[2017-09-20] MEDS: Neomycin 500 mg Tablet PO SCH ×3 (01:42→18:31)
[2017-09-20] MEDS: Erythromycin Base 250 MG TAB PO SCH ×4 (03:09→21:33)
[2017-09-20 04:45] LABS: Albumin 3.8 g/dL (3.5-5.0); Anion Gap 16 mmol/L (10-20); BUN (Urea Nitrogen) 47 mg/dL (8.4-25.7); BUN/Creatinine Ratio 7.78; Calc. Creatinine Clearance 20 mL/min (70-130); Calcium 8.4 mg/dL (7.8-10.44); Carbon Dioxide 19 mmol/L (22-29); Chloride 105 mmol/L (98-107); Estimated GFR-MDRD 12; Glucose 158 mg/dL (70-105); Phosphorus 5.9 mg/dL (2.3-4.7); Potassium 4.1 mmol/L (3.5-5.1); Sodium 136 mmol/L (136-145)
[2017-09-20] MEDS: Piperacillin/Tazobactam 3.375 GM in Sodium Chloride 0.9% 100 ML IVPB SCH ×3 (05:59)
[2017-09-20] MEDS: Albumin 25% 25 GM/100 ML BOT IVPB SCH ×3 (05:59→19:38)
[2017-09-20] MEDS: HumaLOG 300 UNITS/3 ML VIAL SC PRN ×4 (06:00→21:43)
[2017-09-20] MEDS: NIFEdipine XL 90 MG TAB PO SCH (08:00)
--- NOTE | 2017-09-20 08:26 | PRG ---
DATE OF SERVICE: 09/20/2017 PULMONARY AND CRITICAL CARE PROGRESS NOTE SUBJECTIVE: He remains in the CCU. His Carolina was removed a couple days ago, he had been anuric, but did manage to void last night. PHYSICAL EXAMINATION: VITAL SIGNS: His temperature is 98.3, pulse 78, blood pressure 155/79. A 24 hour intake 1588 and ou tput 425. HEENT: Unremarkable. NECK: No JVD. LUNGS: Few crackles in the bases. CARDIAC: S1 and S2 regular. ABDOMEN: Slightly tender in left upper quadrant region. EXTREMITIES: No clubbing or cyanosis. Trace edema throughout. LABORATORY DATA: Sodium 136, potassium 4.1, chloride 105, CO2 19, BUN 47, creatinine 6.0, glucose 15 8, and phosphorus 5.9. White blood cell count 12.1, hemoglobin 9, hematocrit 27.3, platelet count 24 8 that was CBC from yesterday. ASSESSMENT: 1. Acute on chronic renal failure. 2. Status post episode of prolonged hypotension. 3. Improved encephalopathy. 4. Colon cancer. PLAN: Given his renal failure, I will go ahead and change his Zosyn to a renal dose additionally. I will stop Lovenox and start on subcu heparin. His surgery is likely to be delayed until his creatin ine is improved.
[2017-09-20] MEDS: Carvedilol 25 MG TAB PO SCH ×2 (09:07→18:31)
[2017-09-20] MEDS: Heparin 5,000 UNITS/ML VIAL SC SCH ×2 (09:08→21:33)
--- NOTE | 2017-09-20 09:15 | PRG ---
DATE OF SERVICE: 09/19/2017 SUBJECTIVE: No new complaints. The patient is comfortable. Denies any worsening chest pain or shor tness of breath. He is currently sitting. PHYSICAL EXAMINATION: VITAL SIGNS: Blood pressure was noted at 122/67, heart rate 84, respiratory rate 14. GENERAL: He was noted to be awake and alert. He is sitting comfortable, not in distress. SKIN: Adequate turgor. HEENT: He had pinkish conjunctivae, anicteric sclerae. NECK: No neck mass, no carotid bruits, no JVD. CHEST: No deformities. LUNGS: Decreased breath sounds. HEART: Normal sinus rhythm. No murmur, no gallops, no rubs. ABDOMEN: Globular, soft, nontender, no masses. EXTREMITIES: No edema or deformities. MEDICATIONS: 09/19/2017 - Reviewed. LABORATORY: 09/19/2017 - Sodium 133, potassium 4.2, chloride 103, carbon dioxide 17, BUN 45, creatin ine 5.37, glucose 257, calcium 8.4. Urinalysis of 09/19/2017 shows specific gravity 1.025, 0-3 coarse granular casts and also findings of protein. ASSESSMENT AND PLAN: 1. Acute kidney injury - I suspect he may have a superimposed acute tubular necrosis as suggested by his clinical history. He has had labile hypertension as well as hypertension. In addition, he rece ived IV contrast. His urinalysis also suggested some degree of acute tubular necrosis since he does show coarse granular casts. Management is supportive. Dialysis only if indicated. Currently, we yusuf olivares trying to optimize his hemodynamics. He is currently on salt poor albumin at 25 grams IV q.6 h. 2. Colon cancer - being evaluated by Surgery. They are waiting until the stabilization with this edd jalloh. If his renal function further worsens, he may be looking at dialytic intervention.
[2017-09-20] MEDS: Piperacillin/Tazobactam 2.25 GM in Sodium Chloride 0.9% 100 ML IVPB SCH ×2 (10:00→21:33)
--- NOTE | 2017-09-20 10:05 | PRG ---
DATE OF SERVICE: 09/20/2017 SUBJECTIVE: The patient was seen and examined, not doing very well, feeling worse. His words feelin g like an old man, unable to stand and unable to do anything for himself. PHYSICAL EXAMINATION: VITAL SIGNS: Blood pressure of 145/74, respiratory rate of 19-31, O2 sat 93%. HEENT: Remarkable for engorged neck veins, moist oral mucosa. Neck was supple. CARDIOVASCULAR: First and second heart sounds with elevated jugular venous pressure. RESPIRATORY: Clear to auscultation anteriorly. DIGESTIVE: Revealed a slightly distended abdomen. EXTREMITIES: No peripheral edema. SKIN: No new gross rash. LYMPHATICS: No peripheral lymphadenopathy. NEUROLOGIC: Alert and oriented. No lateralizing signs. LABORATORY INVESTIGATION: Showed a creatinine that has gone up to 6.04 with BUN of 47 and bicarbonat e 19, potassium 4.1, phosphorus of 5.9. IMPRESSION: 1. 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 2. Metabolic acidosis. 3. Incipient respiratory failure. 4. Hypervolemia. PLAN: 1. The patient is at the point that is going to require hemodialysis with ultrafiltration to address the hypervolemia and worsening toxemia. The patient wants to think about it, we will give him some time to deliberate on it and we will move forward based on the patient's decision. For the most part , the patient to start with temporary dialysis. 2. Further management to be dependent on the clinical course and the decision of the patient.
[2017-09-20] MEDS ORDERED: Heparin 10,000 UNITS/ 10 ML VIAL ONE (11:00)
[2017-09-20 16:56] LABS: HBSAg Index 0.33 S/CO (0-0.99); Hep B Surf Ag Non-Reactive S/CO (NonReactive)
[2017-09-20 18:09] LABS: Hep B Core Total Ab Reactive (NonReactive); Hep C IgG Ab Reflex HepC Qnt (NonReactive)
[2017-09-20 18:23] LABS: HBSAB Concentration 8.17 mIU/mL
[2017-09-20 18:25] LABS: Hep C Index 10.59 S/CO (0-0.79)
--- NOTE | 2017-09-20 18:47 | PDOC.PN ---
- Subjective Encounter Start Date: 09/20/17 Encounter Start Time: 14:00 Patient seen and examined. No new complaints. No overnight events - Objective Resuscitation Status: Resuscitation Status FULL:Full Resuscitation MAR Reviewed: Yes Vital Signs & Weight: Vital Signs (12 hours) Temp Pulse Resp Pulse Ox 09/20/17 16:00 98.2 F 09/20/17 12:00 98.0 F 09/20/17 08:00 98.0 F 92 23 H 94 L 09/20/17 07:00 98.4 F Weight Weight 226 lb 6.636 oz Most Recent Monitor Data Heart Rate from ECG 88 NIBP 174/84 NIBP BP-Mean 107 Respiration from ECG 26 SpO2 95 I&O: 09/19/17 09/20/17 09/21/17 06:59 06:59 06:59 Intake Total 2137 1588 460 Output Total 60 425 490 Balance 7 1163 -30 Result Diagrams: 09/18/17 04:30 09/20/17 04:05 Additional Labs: Accuchecks 09/20/17 09/20/17 09/20/17 11:46 07:40 05:57 POC Glucose 215 H 152 H 168 H 09/19/17 20:15 POC Glucose 250 H EKG Reviewed by me: Yes (Tele SR) Phys Exam - Physical Examination Constitutional: NAD Respiratory: no wheezing, no rhonchi Cardiovascular: RRR, no rub Gastrointestinal: soft, non-tender, positive bowel sounds Neurological: moves all 4 limbs Dx/Plan - Plan DVT proph w/SCDs IMPRESSION: 1. ROMAINE on CKD 3 - prob due to ATN from prolonged hypotension 2. GI bleeding due to Colon Ca/Acute blood loss anemia 3. HTN 4. Polysubstance abuse 5. Cirrhosis - Hep B &C 6. Other issues per previous notes PLAN: * Cont to monitor * Dialysis per Nephrology * Critical care/Surgery following * AM labs * Cont current meds as below Review of Systems - Review of Systems Respiratory: negative: Cough, Dry, Shortness of Breath, Hemoptysis, SOB with Excertion, Pleuritic Pain, Sputum, Wheezing Cardiovascular: negative: Chest Pain, Palpitations, Orthopnea, Paroxysmal Noc. Dyspnea, Edema, Light Headedness - Medications/Allergies Allergies/Adverse Reactions: Allergies Allergy/AdvReac Type Severity Reaction Status Date / Time No Known Allergies Allergy Verified 02/18/15 19:53 Medications: Current Medications Acetaminophen (Tylenol) 650 mg PO Q4H PRN PRN Reason: Headache/Fever or Pain Carvedilol (Coreg) 25 mg PO BID-[facility] Last Admin: 09/20/17 18:31 Dose: 25 mg Dextrose/Water (Dextrose 50%) 25 gm SLOW IVP PRN PRN PRN Reason: Hypoglycemia Erythromycin (Erythromycin Base) 250 mg PO 0300,0900,1500,2100 [facility] Last Admin: 09/20/17 15:29 Dose: 250 mg Glucagon (Glucagon) 1 mg IM PRN PRN PRN Reason: Hypoglycemia Heparin Sodium (Porcine) (Heparin) 5,000 units SC BID [facility] Last Admin: 09/20/17 09:08 Dose: 5,000 units Sodium Chloride (Normal Saline 0.9%) 1,000 mls @ 0 mls/hr IV .Q0M LM PRN Reason: KVO Last Admin: 09/16/17 13:35 Dose: Not Given Dextrose/Water (D5w) 1,000 mls @ 0 mls/hr IV .Q0M PRN; As Directed PRN Reason: Hypoglycemia Piperacillin Sod/Tazobactam (Sod 2.25 gm/ Sodium Chloride) 100 mls @ 200 mls/ hr IVPB Q12HR [facility] Last Admin: 09/20/17 10:00 Dose: 100 mls Insulin Human Lispro (Humalog) 0 units SC .MODERATE SLIDING SC PRN PRN Reason: Moderate Correctional Scale Last Admin: 09/20/17 18:36 Dose: 2 units Neomycin Sulfate (Neomycin Sulfate) 500 mg PO 0100,0900,1700 [facility] Last Admin: 09/20/17 18:31 Dose: 500 mg Nifedipine (Procardia Xl) 90 mg PO DAILY [facility] Last Admin: 09/20/17 08:00 Dose: Not Given Ondansetron HCl (Zofran) 4 mg IVP Q6H PRN PRN Reason: Nausea/Vomiting Sodium Chloride (Flush - Normal Saline) 10 ml IVF Q12HR [facility] Last Admin: 09/20/17 09:00 Dose: 10 ml Sodium Chloride (Flush - Normal Saline) 10 ml IVF PRN PRN PRN Reason: Saline Flush
[2017-09-21] MEDS: Neomycin 500 mg Tablet PO SCH ×3 (01:37→18:02)
[2017-09-21] MEDS: Erythromycin Base 250 MG TAB PO SCH ×4 (04:09→20:27)
[2017-09-21 05:01] LABS: #Eosinphils 0.3 thou/uL (0.0-0.7); #Lymphocytes 0.8 thou/uL (1.20-3.40); #Monocytes 0.8 thou/uL (0.11-0.59); #Neutrophils 6.6 thou/uL (1.40-6.50); %Basophils 0.4 % (0.0-1.0); %Eosinophils 3.4 % (0.0-10.0); %Lymphocytes 9.7 % (21.0-51.0); %Monocytes 9.3 % (0.0-10.0); %Neutrophils 77.3 % (42.0-75.0); Hemoglobin 8.4 g/dL (14.0-18.0); Mean Corpuscular HGB CONC 32.9 g/dL (32.0-36.0); Mean Corpuscular Hemoglobin 28.7 pg (27.0-31.0); Mean Corpuscular Volume 87.3 fl (80.0-94.0); Mean Platelet Volume 8.1 fL (7.4-10.4); Platelet Count 201 thou/uL (130-400); RBC Distribution Width 13.7 % (11.5-14.5); Red Blood Cell (RBC) Count 2.93 mill/uL (4.70-6.10); White Blood Cell (WBC) Count 8.6 thou/uL (4.8-10.8)
[2017-09-21 05:43] LABS: Albumin 4.2 g/dL (3.5-5.0); Anion Gap 14 mmol/L (10-20); BUN (Urea Nitrogen) 38 mg/dL (8.4-25.7); BUN/Creatinine Ratio 7.55; Calc. Creatinine Clearance 24 mL/min (70-130); Calcium 8.8 mg/dL (7.8-10.44); Carbon Dioxide 22 mmol/L (22-29); Chloride 104 mmol/L (98-107); Estimated GFR-MDRD 14; Glucose 199 mg/dL (70-105); Phosphorus 4.4 mg/dL (2.3-4.7); Potassium 3.7 mmol/L (3.5-5.1); Sodium 136 mmol/L (136-145)
--- NOTE | 2017-09-21 08:02 | PRG ---
DATE OF SERVICE: 09/21/2017 He is currently undergoing hemodialysis this morning. He feels better. He is much more alert and or iented. PHYSICAL EXAMINATION: VITAL SIGNS: His temperature is 98.6, pulse 78, blood pressure 176/87, 24-hour intake 1297, output 6 91. HEENT: Unremarkable. NECK: No JVD. LUNGS: Clear to auscultation anteriorly. CARDIOVASCULAR: S1, S2 regular, without murmur. ABDOMEN: Soft, slightly protuberant. EXTREMITIES: Edematous throughout. LABORATORY DATA: Sodium 136, potassium 3.7, chloride 104, CO2 22, BUN 38, creatinine 5.0, glucose 19 9. White blood cell count 8.6, hematocrit 25.6, platelet count 201. ASSESSMENT: 1. Acute respiratory failure secondary to fluid overload and pneumonia - this has improved. 2. Acute renal failure - improving with dialysis. 3. Improved encephalopathy. 4. Colon cancer. PLAN: I think he is stable enough to transfer to the telemetry floor. He is continuing on antibioti cs which will probably go for 7 days. Surgery is being withheld until the patient is deemed more sta ble on dialysis.
[2017-09-21] MEDS: Heparin 5,000 UNITS/ML VIAL SC SCH ×2 (08:53→20:27)
[2017-09-21] MEDS: Carvedilol 25 MG TAB PO SCH ×2 (08:54→18:02)
[2017-09-21] MEDS: NIFEdipine XL 90 MG TAB PO SCH (09:12)
[2017-09-21] MEDS: HumaLOG 300 UNITS/3 ML VIAL SC PRN ×4 (09:14→20:28)
[2017-09-21] MEDS: Piperacillin/Tazobactam 2.25 GM in Sodium Chloride 0.9% 100 ML IVPB SCH ×2 (09:30→20:27)
--- NOTE | 2017-09-21 10:19 | PRG ---
DATE OF SERVICE: 09/21/2017 HISTORY OF PRESENT ILLNESS: Mr. Loo has been hospitalized now for 8 days. He presented with recta l bleeding from a colon cancer. He was anemic. He has had a couple of hypotensive episodes requirin g pressors. He initially refused resection of his colon cancer and has subsequently been too unstabl e to proceed with surgery. Over the weekend, he developed renal failure. His creatinine yesterday w as 6.0. This is up from his baseline of about 2.3 when he presented. This led to further respirator y failure with fluid overload and pneumonia. He was started on dialysis yesterday after a femoral di alysis catheter was placed. He currently appears to be stable. He is afebrile. He is currently und ergoing hemodialysis. He awakens easily and converses appropriately. His examination is essentially unchanged. LABORATORY STUDIES: His hemoglobin is stable at 8.4. His creatinine today is down to 5.0. His pota ssium is normal at 3.7. PLAN: In summary, he appears to be stable from a surgical standpoint. He is being medically optimiz ed. Unfortunately, he will continue to have ongoing problems with anemia and his subsequent medical problems this causes him until he has his colon resection. The hope is therefore to medically stabil ize him until he is appropriate for surgery. Depending upon the opinions of the medical team, this m ay be later this week or the beginning of next week. I will continue to follow closely.
[2017-09-21] MEDS ORDERED: Heparin 10,000 UNITS/ 10 ML VIAL ONE (11:00)
[2017-09-21] MEDS ORDERED: HYDROcodone/Acetaminophen 5/325 mg Tablet PO PRN (13:10)
--- NOTE | 2017-09-21 17:39 | PRG ---
DATE OF SERVICE: 09/21/2017 SUBJECTIVE: The patient was seen and examined, seems to be doing much better since started dialysis. Noted with the following vital signs. OBJECTIVE VITAL SIGNS: Afebrile with temperature 97.9, pulse 56, respiratory rate of 17, O2 sat of 94%, blood pressure 118/75 HEENT: Unremarkable with moist oral mucosa. No conjunctival injection or icterus. NECK: Supple. CARDIOVASCULAR SYSTEM: First and second heart sounds were heard. RESPIRATORY SYSTEM: Clear to auscultation. DIGESTIVE SYSTEM: Revealed a benign abdomen with positive bowel sounds. EXTREMITIES: No peripheral edema. SKIN: No new gross rash. IMPRESSION: 1. Acute on chronic kidney disease in the context of possible contrast induced acute tubular necrosi s. 2. Hypervolemia responded to dialysis with ultrafiltration. 3. Hypertension. PLAN: 1. We will continue hemodialysis with ultrafiltration as tolerated by hemodynamics. 2. Renally dose all medications. 3. If renal function does not improve, the patient likely to need a long-term access for continued h emodialysis. 4. Further management to be dependent on the clinical course.
--- NOTE | 2017-09-21 19:51 | OP ---
PROCEDURE: Femoral dialysis catheter placement. PRODUCT MANAGEMENT ANALYST: Abe Martinez M.D. MEDICATION: 2% lidocaine. DETAILS OF PROCEDURE: After informed consent was obtained, the patient was prepped and draped in a s terile fashion. The right femoral vein was approached in layers under real time ultrasound guidance over the wire, serial dilators were carried out and a Trialysis catheter was secured over the wire. Patient tolerated the procedure very well with no immediate postop complications. Line is good for u se for dialysis.
[2017-09-21] MEDS: Ondansetron HCl/PF 4 MG/2 ML Vial IVP PRN (20:27)
--- NOTE | 2017-09-21 23:30 | PDOC.PN ---
- Subjective Encounter Start Date: 09/21/17 Encounter Start Time: 12:00 Patient seen and examined. No new complaints. No overnight events. - Objective Resuscitation Status: Resuscitation Status FULL:Full Resuscitation MAR Reviewed: Yes Vital Signs & Weight: Vital Signs (12 hours) Temp Pulse Resp BP BP Pulse Ox 09/21/17 20:00 98.1 F 68 20 121/74 94 L 09/21/17 17:25 97.9 F 56 L 17 09/21/17 16:48 97.9 F 56 L 17 118/75 94 L 09/21/17 13:14 99 09/21/17 12:00 98.4 F Weight Weight 219 lb 2.232 oz Most Recent Monitor Data Heart Rate from ECG 64 NIBP 115/64 NIBP BP-Mean 78 Respiration from ECG 18 SpO2 95 I&O: 09/20/17 09/21/17 09/22/17 06:59 06:59 06:59 Intake Total 1588 1297 700 Output Total 425 691 240 Balance 1163 606 460 Result Diagrams: 09/21/17 04:15 09/22/17 05:32 Additional Labs: Accuchecks 09/21/17 09/21/17 09/21/17 20:24 16:21 12:30 POC Glucose 241 H 230 H 171 H 09/21/17 09/20/17 08:14 21:43 POC Glucose 191 H 180 H EKG Reviewed by me: Yes (Tele Sr) Phys Exam - Physical Examination Constitutional: NAD Respiratory: no wheezing, no rhonchi Cardiovascular: RRR, no rub Gastrointestinal: soft, non-tender, positive bowel sounds Musculoskeletal: no edema Neurological: moves all 4 limbs Dx/Plan - Plan out of bed/ambulate, DVT proph w/SCDs IMPRESSION: 1. ROMAINE on CKD 3/ESRD - prob due to ATN from prolonged hypotension - Started on dialysis 2. GI bleeding due to Colon Ca/Acute blood loss anemia - Awaiting surgery 3. HTN 4. Polysubstance abuse - counselled. 5. Cirrhosis - Hep B &C 6. Other issues per previous notes PLAN: * Dialysis per Nephrology * Critical care/Surgery following * Ambulate * AM labs * Cont current meds as below * Cont to monitor. Review of Systems - Review of Systems Constitutional: Weakness (gen) Respiratory: negative: Cough, Dry, Shortness of Breath, Hemoptysis, SOB with Excertion, Pleuritic Pain, Sputum, Wheezing Cardiovascular: negative: Chest Pain, Palpitations, Orthopnea, Paroxysmal Noc. Dyspnea, Edema, Light Headedness Neurological: negative: Weakness, Numbness, Incoordination, Change in Speech, Confusion, Seizures - Medications/Allergies Allergies/Adverse Reactions: Allergies Allergy/AdvReac Type Severity Reaction Status Date / Time No Known Allergies Allergy Verified 02/18/15 19:53 Medications: Current Medications Acetaminophen (Tylenol) 650 mg PO Q4H PRN PRN Reason: Headache/Fever or Pain Hydrocodone Bitart/Acetaminophen (Cascade 5/325) 1 tab PO Q6H PRN PRN Reason: Severe Pain (7-10) Last Admin: 09/21/17 13:32 Dose: 1 tab Carvedilol (Coreg) 25 mg PO BID-[facility] Last Admin: 09/21/17 18:02 Dose: Not Given Dextrose/Water (Dextrose 50%) 25 gm SLOW IVP PRN PRN PRN Reason: Hypoglycemia Erythromycin (Erythromycin Base) 250 mg PO 0300,0900,1500,2100 [facility] Last Admin: 09/21/17 20:27 Dose: 250 mg Glucagon (Glucagon) 1 mg IM PRN PRN PRN Reason: Hypoglycemia Heparin Sodium (Porcine) (Heparin) 5,000 units SC BID [facility] Last Admin: 09/21/17 20:27 Dose: 5,000 units Sodium Chloride (Normal Saline 0.9%) 1,000 mls @ 0 mls/hr IV .Q0M [facility] PRN Reason: KVO Last Admin: 09/16/17 13:35 Dose: Not Given Dextrose/Water (D5w) 1,000 mls @ 0 mls/hr IV .Q0M PRN; As Directed PRN Reason: Hypoglycemia Piperacillin Sod/Tazobactam (Sod 2.25 gm/ Sodium Chloride) 100 mls @ 200 mls/ hr IVPB Q12HR [facility] Last Admin: 09/21/17 20:27 Dose: 100 mls Insulin Human Lispro (Humalog) 0 units SC .MODERATE SLIDING SC PRN PRN Reason: Moderate Correctional Scale Last Admin: 09/21/17 20:28 Dose: 4 units Neomycin Sulfate (Neomycin Sulfate) 500 mg PO 0100,0900,1700 [facility] Last Admin: 09/21/17 18:02 Dose: 500 mg Nifedipine (Procardia Xl) 90 mg PO DAILY [facility] Last Admin: 09/21/17 09:12 Dose: 90 mg Ondansetron HCl (Zofran) 4 mg IVP Q6H PRN PRN Reason: Nausea/Vomiting Last Admin: 09/21/17 20:27 Dose: 4 mg Sodium Chloride (Flush - Normal Saline) 10 ml IVF Q12HR [facility] Last Admin: 09/21/17 20:28 Dose: 10 ml Sodium Chloride (Flush - Normal Saline) 10 ml IVF PRN PRN PRN Reason: Saline Flush Last Admin: 09/21/17 20:28 Dose: 10 ml
[2017-09-22] MEDS: Neomycin 500 mg Tablet PO SCH ×3 (01:00→18:09)
[2017-09-22] MEDS: Erythromycin Base 250 MG TAB PO SCH ×4 (03:55→22:14)
[2017-09-22 06:20] LABS: Albumin 3.9 g/dL (3.5-5.0); Anion Gap 15 mmol/L (10-20); BUN (Urea Nitrogen) 34 mg/dL (8.4-25.7); BUN/Creatinine Ratio 6.65; Calc. Creatinine Clearance 23 mL/min (70-130); Calcium 8.5 mg/dL (7.8-10.44); Carbon Dioxide 21 mmol/L (22-29); Chloride 101 mmol/L (98-107); Estimated GFR-MDRD 14; Glucose 241 mg/dL (70-105); Sodium 133 mmol/L (136-145)
[2017-09-22] MEDS ORDERED: Heparin 10,000 UNITS/ 10 ML VIAL ONE (07:19)
[2017-09-22] MEDS: Carvedilol 25 MG TAB PO SCH ×2 (08:26→18:08)
[2017-09-22] MEDS: Heparin 5,000 UNITS/ML VIAL SC SCH ×2 (08:26→22:14)
[2017-09-22] MEDS: Piperacillin/Tazobactam 2.25 GM in Sodium Chloride 0.9% 100 ML IVPB SCH (08:28)
[2017-09-22] MEDS: NIFEdipine XL 90 MG TAB PO SCH (08:28)
[2017-09-22] MEDS ORDERED: Amoxicillin/Potassium Clav 500 MG TAB PO SCH (09:00)
--- NOTE | 2017-09-22 09:16 | PRG ---
DATE OF SERVICE: 09/22/2017 SUBJECTIVE: He is feeling much better, had no acute complaints. OBJECTIVE: VITAL SIGNS: Temperature 98.2, pulse 85, respirations 18, O2 sat 95%, blood pressure 120/72. HEENT: Unremarkable. NECK: No JVD. CHEST: Clear. CARDIAC: S1 and S2 regular. ABDOMEN: Soft. EXTREMITIES: No edema. LABORATORY DATA: White blood cell count 8.6, hematocrit 25.6, platelet count 201. Sodium 133, potas sium 4, chloride 101, CO2 21, BUN 34, creatinine 5.1, glucose 241. ASSESSMENT: 1. Chronic renal failure. 2. Status post prolonged hypotension. 3. Possible aspiration. PLAN: 1. Continue dialysis. 2. Switched to oral antibiotics. 3. Discontinue central line.
[2017-09-22] MEDS: HumaLOG 300 UNITS/3 ML VIAL SC PRN (12:12)
--- NOTE | 2017-09-22 16:26 | PRG ---
DATE OF SERVICE: 09/22/2017 SUBJECTIVE: The patient was seen and examined, seems to be doing much better, noted with the followi ng. OBJECTIVE: VITAL SIGNS: Afebrile with a temperature of 98.2, pulse 75, respiratory rate of 18 and O2 sats 95% o n 2 liters. HEENT: Unremarkable with moist oral mucosa. No conjunctival injection or icterus. NECK: Supple. CARDIOVASCULAR SYSTEM: First and second heart sounds were heard. RESPIRATORY SYSTEM: Clear to auscultation. DIGESTIVE SYSTEM: Revealed a benign abdomen with positive bowel sounds. EXTREMITIES: No peripheral edema. SKIN: No new gross rash. LYMPHATICS: No peripheral lymphadenopathy. LABORATORY INVESTIGATIONS: Showed a phosphorus of 5.0, creatinine of 5.11, BUN of 34 and sodium of 1 33. IMPRESSION: 1. Acute on chronic kidney disease/acute tubular necrosis, likely has progressed to end-stage renal disease. 2. Mild metabolic acidosis. 3. Mild hyponatremia. 4. Hyperphosphatemia. 5. Respiratory failure in the context of hypervolemia. PLAN: 1. The patient to continue with current regimen of hemodialysis as tolerated by him with ultrafiltra tion as tolerated by hemodynamics. 2. If it becomes obvious that this patient's renal function is not going to recover to the point of sustaining his life, arrangements should be made to secure a long-term dialysis access in preparation for possible discharge.
--- NOTE | 2017-09-22 19:56 | PDOC.PN ---
- Subjective Encounter Start Date: 09/22/17 Encounter Start Time: 11:45 Patient seen and examined. No new complaints. No overnight events - Objective Resuscitation Status: Resuscitation Status FULL:Full Resuscitation MAR Reviewed: Yes Vital Signs & Weight: Vital Signs (12 hours) Temp Pulse Resp BP Pulse Ox 09/22/17 08:28 75 09/22/17 08:00 98.2 F 75 18 128/72 95 Weight Weight 218 lb 4.122 oz Most Recent Monitor Data Heart Rate from ECG 64 NIBP 115/64 NIBP BP-Mean 78 Respiration from ECG 18 SpO2 95 I&O: 09/21/17 09/22/17 09/23/17 06:59 06:59 06:59 Intake Total 1297 1822 1560 Output Total 691 240 Balance 606 1582 1560 Result Diagrams: 09/21/17 04:15 09/22/17 05:32 Additional Labs: Accuchecks 09/22/17 09/22/17 09/22/17 18:07 11:34 05:16 POC Glucose 119 H 383 H 270 H 09/22/17 09/21/17 01:30 20:24 POC Glucose 207 H 241 H Phys Exam - Physical Examination Constitutional: NAD Respiratory: no wheezing, no rhonchi Cardiovascular: RRR, no rub Gastrointestinal: soft, non-tender, positive bowel sounds Neurological: moves all 4 limbs Dx/Plan - Plan out of bed/ambulate, DVT proph w/heparin, DVT proph w/SCDs IMPRESSION: 1. ROMAINE on CKD 3/ESRD - prob due to ATN from prolonged hypotension - Started on dialysis 2. GI bleeding due to Colon Ca/Acute blood loss anemia - Awaiting surgery 3. Possible Aspiration Pneumonia 4. Polysubstance abuse - counselled. 5. Cirrhosis - Hep B &C 6. HTN 7. Other issues per previous notes PLAN: * Dialysis per Nephrology * AM labs * Cont current meds as below * Cont to monitor. * Atbx changed to PO Review of Systems - Review of Systems Constitutional: negative: Fever, Chills, Sweats, Weakness, Malaise Respiratory: negative: Cough, Dry, Shortness of Breath, Hemoptysis, SOB with Excertion, Pleuritic Pain, Sputum, Wheezing Cardiovascular: negative: Chest Pain, Palpitations, Orthopnea, Paroxysmal Noc. Dyspnea, Edema, Light Headedness - Medications/Allergies Allergies/Adverse Reactions: Allergies Allergy/AdvReac Type Severity Reaction Status Date / Time No Known Allergies Allergy Verified 02/18/15 19:53 Medications: Current Medications Acetaminophen (Tylenol) 650 mg PO Q4H PRN PRN Reason: Headache/Fever or Pain Acetaminophen (Tylenol) 650 mg PO Q4H PRN PRN Reason: Headache/Fever or Mild Pain Amoxicillin/Clavulanate Potassium (Augmentin) 500 mg PO Q12HR [facility] Stop: 09/25/17 09:01 Last Admin: 09/22/17 12:20 Dose: 500 mg Carvedilol (Coreg) 25 mg PO BID-[facility] Last Admin: 09/22/17 18:08 Dose: 25 mg Dextrose/Water (Dextrose 50%) 25 gm SLOW IVP PRN PRN PRN Reason: Hypoglycemia Erythromycin (Erythromycin Base) 250 mg PO 0300,0900,1500,2100 [facility] Last Admin: 09/22/17 15:00 Dose: Not Given Glucagon (Glucagon) 1 mg IM PRN PRN PRN Reason: Hypoglycemia Heparin Sodium (Porcine) (Heparin) 5,000 units SC BID [facility] Last Admin: 09/22/17 08:26 Dose: 5,000 units Sodium Chloride (Normal Saline 0.9%) 1,000 mls @ 0 mls/hr IV .Q0M LM PRN Reason: KVO Last Admin: 09/16/17 13:35 Dose: Not Given Dextrose/Water (D5w) 1,000 mls @ 0 mls/hr IV .Q0M PRN; As Directed PRN Reason: Hypoglycemia Insulin Human Lispro (Humalog) 0 units SC .MODERATE SLIDING SC PRN PRN Reason: Moderate Correctional Scale Last Admin: 09/22/17 12:12 Dose: 10 units Neomycin Sulfate (Neomycin Sulfate) 500 mg PO 0100,0900,1700 [facility] Last Admin: 09/22/17 18:09 Dose: 500 mg Nifedipine (Procardia Xl) 90 mg PO DAILY [facility] Last Admin: 09/22/17 08:28 Dose: 90 mg Ondansetron HCl (Zofran) 4 mg IVP Q6H PRN PRN Reason: Nausea/Vomiting Last Admin: 09/21/17 20:27 Dose: 4 mg Sodium Chloride (Flush - Normal Saline) 10 ml IVF Q12HR [facility] Last Admin: 09/22/17 08:29 Dose: 10 ml Sodium Chloride (Flush - Normal Saline) 10 ml IVF PRN PRN PRN Reason: Saline Flush Last Admin: 09/21/17 20:28 Dose: 10 ml
[2017-09-23] MEDS: Neomycin 500 mg Tablet PO SCH ×2 (00:39→14:07)
[2017-09-23] MEDS: Erythromycin Base 250 MG TAB PO SCH ×2 (02:50→14:05)
[2017-09-23 06:31] LABS: #Eosinphils 0.2 thou/uL (0.0-0.7); #Monocytes 0.9 thou/uL (0.11-0.59); #Neutrophils 5.7 thou/uL (1.40-6.50); %Basophils 0.4 % (0.0-1.0); %Eosinophils 2.8 % (0.0-10.0); %Lymphocytes 12.2 % (21.0-51.0); %Monocytes 11.6 % (0.0-10.0); %Neutrophils 73.1 % (42.0-75.0); Mean Corpuscular HGB CONC 32.2 g/dL (32.0-36.0); Mean Corpuscular Hemoglobin 28.4 pg (27.0-31.0); Mean Corpuscular Volume 88.3 fl (80.0-94.0); Mean Platelet Volume 8.7 fL (7.4-10.4); Platelet Count 208 thou/uL (130-400); RBC Distribution Width 13.7 % (11.5-14.5); Red Blood Cell (RBC) Count 2.82 mill/uL (4.70-6.10); White Blood Cell (WBC) Count 7.8 thou/uL (4.8-10.8)
[2017-09-23 06:48] LABS: Albumin 3.8 g/dL (3.5-5.0); Anion Gap 15 mmol/L (10-20); BUN (Urea Nitrogen) 25 mg/dL (8.4-25.7); BUN/Creatinine Ratio 5.09; Calc. Creatinine Clearance 23 mL/min (70-130); Calcium 8.6 mg/dL (7.8-10.44); Carbon Dioxide 24 mmol/L (22-29); Chloride 100 mmol/L (98-107); Estimated GFR-MDRD 15; Glucose 261 mg/dL (70-105); Phosphorus 4.6 mg/dL (2.3-4.7); Potassium 3.9 mmol/L (3.5-5.1); Sodium 135 mmol/L (136-145)
[2017-09-23] MEDS: Carvedilol 25 MG TAB PO SCH ×3 (11:08→17:27)
[2017-09-23 11:20] LABS: Hep C PCR-Quant HCV Not Detected IU/mL (.)
[2017-09-23] MEDS ORDERED: Amoxicillin/Potassium Clav 500 MG TAB PO SCH (13:00)
[2017-09-23] MEDS: NIFEdipine XL 90 MG TAB PO SCH (14:06)
[2017-09-23] MEDS: Heparin 5,000 UNITS/ML VIAL SC SCH ×2 (14:07→20:50)
--- NOTE | 2017-09-23 17:07 | PRG ---
DATE OF SERVICE: 09/23/2017 SUBJECTIVE: Mr. Loo is on the medical floor at this time. He has been hospitalized since 09/13/20 17 with complaints of rectal bleeding. This is of course related to his large splenic flexure colon cancer. He initially refused surgery and then subsequently had severe hypertensive episodes for whic h he was placed on intravenous pressors and monitored in the Intensive Care Unit. He subsequently pr ogressive renal failure and was started on dialysis. I am told he remains relatively stable. He has no complaints. He is tolerating his diet and tells me he is having bowel function. He is ambulatin g with a walker. PHYSICAL EXAMINATION: VITAL SIGNS: He is afebrile, pulse is 80, blood pressure 129/62. LUNGS: Clear to auscultation. ABDOMEN: Benign. LABORATORY STUDIES: Reveal mild progressive anemia. His hemoglobin on 09/16/2017 was 9.9, today it is 8.0. I am not certain if this is related to blood loss from his colon cancer or not. His creatin ine remains elevated at 4.9 in spite of dialysis. ASSESSMENT: Patient is desiring surgery as soon as he is felt to be stable for this. As soon as he is cleared by his medical physicians and vice principal, I would be happy to proceed with a laparoscopi c left hemicolectomy. Today is , 09/23/2017, and if he remains stable, I would hope to be ab le to proceed with this on 09/28/2017. I will speak with his medical physicians in the inte rim.
[2017-09-23] MEDS: HumaLOG 300 UNITS/3 ML VIAL SC PRN (17:29)
--- NOTE | 2017-09-23 18:01 | PDOC.PN ---
- Subjective Encounter Start Date: 09/23/17 Encounter Start Time: 13:30 Patient seen and examined during dialysis. No new complaints. No overnight events - Objective Resuscitation Status: Resuscitation Status FULL:Full Resuscitation MAR Reviewed: Yes Vital Signs & Weight: Vital Signs (12 hours) Temp Pulse Resp BP BP Pulse Ox 09/23/17 14:06 80 129/62 09/23/17 12:00 98.9 F 80 16 129/62 98 Weight Admit Weight 202 lb 14.4 oz Weight 216 lb 0.848 oz Most Recent Monitor Data Heart Rate from ECG 64 NIBP 115/64 NIBP BP-Mean 78 Respiration from ECG 18 SpO2 95 I&O: 09/22/17 09/23/17 09/24/17 06:59 06:59 06:59 Intake Total 2 1984 Output Total 240 1999 Balance 1582 1984 -1999 Result Diagrams: 09/23/17 05:49 09/23/17 05:49 Additional Labs: Accuchecks 09/23/17 09/23/17 09/23/17 16:29 12:44 05:26 POC Glucose 239 H 152 H 332 H 09/22/17 09/22/17 20:48 18:07 POC Glucose 210 H 119 H Phys Exam - Physical Examination Constitutional: NAD Respiratory: no wheezing, no rhonchi Cardiovascular: RRR, no rub Gastrointestinal: soft, non-tender, positive bowel sounds Neurological: non-focal, moves all 4 limbs Dx/Plan - Plan cont current plan of care, DVT proph w/heparin, DVT proph w/SCDs IMPRESSION: 1. ROMAINE on CKD 3/ESRD - prob due to ATN from prolonged hypotension - on dialysis 2. GI bleeding due to Colon Ca/Acute blood loss anemia - Awaiting surgery 3. Possible Aspiration Pneumonia - on Augmentin 4. Polysubstance abuse - counselled. 5. Cirrhosis - Hep B &C 6. HTN 7. Other issues per previous notes PLAN: * Consult Cardiology for preop clearance * Nephrology following * Cont current meds as below * Cont to monitor Review of Systems - Review of Systems Constitutional: negative: Fever, Chills, Sweats, Weakness, Malaise Cardiovascular: negative: Chest Pain, Palpitations, Orthopnea, Paroxysmal Noc. Dyspnea, Edema, Light Headedness Gastrointestinal: negative: Nausea, Vomiting, Abdominal Pain, Diarrhea, Constipation, Melena, Hematochezia - Medications/Allergies Allergies/Adverse Reactions: Allergies Allergy/AdvReac Type Severity Reaction Status Date / Time No Known Allergies Allergy Verified 02/18/15 19:53 Medications: Current Medications Acetaminophen (Tylenol) 650 mg PO Q4H PRN PRN Reason: Headache/Fever or Pain Acetaminophen (Tylenol) 650 mg PO Q4H PRN PRN Reason: Headache/Fever or Mild Pain Amoxicillin/Clavulanate Potassium (Augmentin) 500 mg PO Q24HR [facility] Stop: 09/25/17 13:01 Last Admin: 09/23/17 14:04 Dose: 500 mg Carvedilol (Coreg) 25 mg PO BID-[facility] Last Admin: 09/23/17 17:27 Dose: 25 mg Dextrose/Water (Dextrose 50%) 25 gm SLOW IVP PRN PRN PRN Reason: Hypoglycemia Glucagon (Glucagon) 1 mg IM PRN PRN PRN Reason: Hypoglycemia Heparin Sodium (Porcine) (Heparin) 5,000 units SC BID [facility] Last Admin: 09/23/17 14:07 Dose: 5,000 units Sodium Chloride (Normal Saline 0.9%) 1,000 mls @ 0 mls/hr IV .Q0M LM PRN Reason: KVO Last Admin: 09/16/17 13:35 Dose: Not Given Dextrose/Water (D5w) 1,000 mls @ 0 mls/hr IV .Q0M PRN; As Directed PRN Reason: Hypoglycemia Insulin Human Lispro (Humalog) 0 units SC .MODERATE SLIDING SC PRN PRN Reason: Moderate Correctional Scale Last Admin: 09/23/17 17:29 Dose: 4 units Miscellaneous Medication (Pharmacy To Dose) 1 each PO PRN PRN PRN Reason: Pharmacy to dose Nifedipine (Procardia Xl) 90 mg PO DAILY [facility] Last Admin: 09/23/17 14:06 Dose: 90 mg Ondansetron HCl (Zofran) 4 mg IVP Q6H PRN PRN Reason: Nausea/Vomiting Last Admin: 09/21/17 20:27 Dose: 4 mg Sodium Chloride (Flush - Normal Saline) 10 ml IVF Q12HR [facility] Last Admin: 09/23/17 14:08 Dose: Not Given Sodium Chloride (Flush - Normal Saline) 10 ml IVF PRN PRN PRN Reason: Saline Flush Last Admin: 09/21/17 20:28 Dose: 10 ml
--- NOTE | 2017-09-23 21:20 | PRG ---
DATE OF SERVICE: 09/23/2017 The patient was seen and examined and seems to be doing much better. OBJECTIVE: IMPRESSION: 1. Advanced chronic kidney disease stage 5, likely renal disease. 2. Status post respiratory failure responded . 3. through hemodialysis. 4. Hypertension. PLAN: 1. The patient to undergo treatment of hemodialysis . The patient is scheduled for , and Wednesday. 2. We would reevaluate this patient's renal function. If renal function the point of re quiring renal replacement therapy, arrangement will be made . 3. Further management will be dependent on the clinical course.
[2017-09-23 22:34] LABS: Actual Bicarbonate (HCO3a) 23.9 mEq/L (22-26); Base Excess (BEa) 1.1 mEq/L (0 (+/-) 2.5); CO2 Tension 30.2 mmHg (35.0-45.0); Calcium, Ionized 1.1 mmol/L (1.12-1.30); Hematocrit-ABG 28.3 % (42.0-52.0); Hemoglobin (Hb) 7.8 g/dL (14.0-18.0); O2 Tension (PaO2) 62.5 mmHg (80.0-100.0); pH, Arterial 7.52 (7.35-7.45)
[2017-09-23 22:39] LABS: #Eosinphils 0.2 thou/uL (0.0-0.7); #Monocytes 0.6 thou/uL (0.11-0.59); #Neutrophils 5.7 thou/uL (1.40-6.50); %Basophils 0.1 % (0.0-1.0); %Eosinophils 2.1 % (0.0-10.0); %Lymphocytes 13.1 % (21.0-51.0); %Monocytes 8.4 % (0.0-10.0); %Neutrophils 76.2 % (42.0-75.0); Mean Corpuscular HGB CONC 31.9 g/dL (32.0-36.0); Mean Corpuscular Hemoglobin 28.3 pg (27.0-31.0); Mean Corpuscular Volume 88.7 fl (80.0-94.0); Mean Platelet Volume 8.4 fL (7.4-10.4); Platelet Count 241 thou/uL (130-400); RBC Distribution Width 13.3 % (11.5-14.5); Red Blood Cell (RBC) Count 2.82 mill/uL (4.70-6.10); White Blood Cell (WBC) Count 7.5 thou/uL (4.8-10.8)
[2017-09-23 22:45] LABS: INR-International Normal Ratio 1.2; Prothrombin Time 15.5 SEC (12.0-14.7)
[2017-09-23] MEDS: Norepinephrine 8 MG/250 ML BAG IVPB PRN (22:54)
[2017-09-23 23:00] LABS: ALT (SGPT) 25 U/L (8-55); AST (SGOT) 33 U/L (5-34); Albumin 3.7 g/dL (3.5-5.0); Alkaline Phosphatase 58 U/L (40-150); Anion Gap 14 mmol/L (10-20); BUN (Urea Nitrogen) 17 mg/dL (8.4-25.7); Bilirubin, Total 0.9 mg/dL (0.2-1.2); Calc. Creatinine Clearance 26 mL/min (70-130); Calcium 8.5 mg/dL (7.8-10.44); Carbon Dioxide 26 mmol/L (22-29); Chloride 96 mmol/L (98-107); Estimated GFR-MDRD 17; Globulin 3.1 g/dL (2.4-3.5); Glucose 336 mg/dL (70-105); Potassium 4.2 mmol/L (3.5-5.1); Protein, Total 6.8 g/dL (6.0-8.3); Sodium 132 mmol/L (136-145)
[2017-09-23] MEDS ORDERED: Propofol 1,000 MG/100 ML VIAL IV ONE (23:01)
[2017-09-23 23:05] LABS: CKMB 0.6 ng/mL (0-6.6); Troponin I 0.018 ng/mL (< 0.028)
--- NOTE | 2017-09-23 23:33 | RAD ---
CHEST ONE VIEW 09/23/17 COMPARISON: 09/19/17 HISTORY: Pneumonia. Respiratory distress. FINDINGS: Portable supine chest radiograph demonstrates an endotracheal tube at the level of the clavicles. Hea rt is enlarged. There are diffuse bilateral veil-like opacities suggesting pleural effusion. Addition ally, there appears to be alveolar and interstitial opacification. Pneumothorax is not appreciated on this supine projection. Interval removal of left sided catheter. IMPRESSION: 1. Bilateral pleural effusions. 2. Interstitial and alveolar opacities, which have progressed when compared to the prior exam. POS: MATTHIAS
[2017-09-23] MEDS ORDERED: Lorazepam 2 MG/ML VIAL SLOW IVP PRN (23:36)
[2017-09-23] MEDS ORDERED: DISCONTINUE PREVIOUS NARCOTIC PAIN MEDICATIONS AND BENZODIAZEPINES FS SCH (23:36)
[2017-09-23] MEDS ORDERED: Fentanyl 20 MCG/ML 250 ML IVPB SCH (23:36)
[2017-09-23] MEDS ORDERED: Morphine 2 mg/2ml in 0.9% NaCl PF SYRINGE IVP PRN (23:39)
[2017-09-23 23:57] LABS: Actual Bicarbonate (HCO3a) 21.9 mEq/L (22-26); Base Excess (BEa) -0.1 mEq/L (0 (+/-) 2.5); CO2 Tension 25.8 mmHg (35.0-45.0); Hematocrit-ABG 28.2 % (42.0-52.0); Hemoglobin (Hb) 7.5 g/dL (14.0-18.0); O2 Tension (PaO2) 56.5 mmHg (80.0-100.0)
[2017-09-24 00:02] LABS: pH, Arterial 7.55 (7.35-7.45)
[2017-09-24 00:02] LABS: Puncture Site LRA
[2017-09-24 00:03] LABS: Puncture Site LRA
[2017-09-24] MEDS ORDERED: Midazolam HCl 2 mg/2 ml Vial ONE (00:44)
[2017-09-24] MEDS ORDERED: Etomidate 20 MG/10 ML VIAL IVP SCH (01:00)
[2017-09-24] MEDS ORDERED: Midazolam HCl 5 mg/ml Vial SLOW IVP SCH (01:00)
--- NOTE | 2017-09-24 04:27 | PDOC.PN ---
- Subjective Encounter Start Date: 09/23/17 Encounter Start Time: 22:20 -: non-verbal, old records requested/rev Code green called for pt and low bloood pressure. On arrival, resident neelima present and they were dismissed. Cahrt reviewed. Pt was doing well and awake/ alert 45 minutes prior. on eval he was lethargic,but arousable. BP in the 80s/50s, HR dropping into the 50s, upper 40s. due to need for closer monitoring, trnasferredot ICU, 2 units PRBCs ordered as his H/H has been dropping. He had HD earleir iwth 2L fluid removal. LAbs, including CBC, CMP, Type and cross for 2 units ordered. On arrival to ICU, pt was less responsive, we would go apneic at times. The sister was contacted and was inagreement, the pt was intubated with RSI. please see dictated procedure note. Pt place nighat AC, 500, R 14, FiO2 40 PS 5. ABG revealed respiratory ALKALOSIS. rate later dropped ot 10 and Vt dropped to 400. Pt place nighat levophed for low BP, quickly escaled to 30mcg to support his BP. Propofol ordered initially but held due to low BP, Precedex may be needed instead. Two units blood were ordered. - Objective Resuscitation Status: Resuscitation Status FULL:Full Resuscitation MAR Reviewed: Yes Vital Signs & Weight: Vital Signs (12 hours) Temp Pulse Pulse Pulse Resp Resp BP 09/24/17 04:00 98.7 F 23 H 09/24/17 03:42 98.6 F 09/24/17 02:05 98.3 F 09/24/17 02:04 18 09/24/17 02:00 98.3 F 09/24/17 01:55 98.3 F 09/24/17 00:19 99.0 F 46 L 25 H 09/24/17 00:15 99.0 F 09/24/17 00:00 99.0 F 21 H 09/23/17 23:00 99.0 F 49 L 14 09/23/17 22:20 52 L 12 89/59 L 09/23/17 22:07 98.2 F 52 L 22 H 09/23/17 20:00 97.9 F 60 20 BP BP BP BP Pulse Ox 09/24/17 04:00 09/24/17 03:42 09/24/17 02:05 09/24/17 02:04 09/24/17 02:00 09/24/17 01:55 09/24/17 00:19 78/47 L 09/24/17 00:15 09/24/17 00:00 09/23/17 23:00 09/23/17 22:20 75/55 L 88/60 L 09/23/17 22:07 79/55 L 94 L 09/23/17 20:00 94 L Weight Admit Weight 202 lb 14.4 oz Weight 219 lb 12.814 oz Most Recent Monitor Data Heart Rate from ECG 54 NIBP 105/61 NIBP BP-Mean 80 Respiration from ECG 25 SpO2 100 I&O: 09/22/17 09/23/17 09/24/17 06:59 06:59 06:59 Intake Total 1821984 168 Output Total 240 2120 Balance 1582 1985 -440 Result Diagrams: 09/23/17 22:28 09/23/17 22:28 Additional Labs: Accuchecks 09/23/17 09/23/17 09/23/17 22:13 21:26 16:29 POC Glucose 307 H 277 H 239 H 09/23/17 09/23/17 12:44 05:26 POC Glucose 152 H 332 H Radiology Reviewed by me: Yes EKG Reviewed by me: Yes Phys Exam - Physical Examination lethargic, chronically-ill appearing, diaphoretic, cool, clammy HEENT: PERRLA, moist MMs, sclera anicteric, oral pharynx no lesions Neck: no nodes, no JVD, supple, full ROM upper airway groning mad eit difficult to hear. no definite rales, no wheezes heard bradycardic, no audible murmurs Gastrointestinal: soft, non-tender, no distention, positive bowel sounds Musculoskeletal: pulses present Neurological: moves all 4 limbs Lymphatic: no nodes Deviation from normal: lethargic Deviation from normal: cool, clammy Dx/Plan (1) Acute hypoxemic respiratory failure Code(s): J96.01 - ACUTE RESPIRATORY FAILURE WITH HYPOXIA Status: Acute (2) Metabolic encephalopathy Code(s): G93.41 - METABOLIC ENCEPHALOPATHY Status: Acute (3) Anemia due to blood loss, acute Code(s): D62 - ACUTE POSTHEMORRHAGIC ANEMIA Status: Acute Comment: due to above. (4) Hypotension Status: Acute Qualifiers: Hypotension type: other hypotension type Qualified Code(s): I95.89 - Other hypotension Comment: resolved.. (5) Lower GI bleeding Code(s): K92.2 - GASTROINTESTINAL HEMORRHAGE, UNSPECIFIED Status: Acute Comment: hb/hct stable.. (6) ROMAINE (acute kidney injury) Code(s): N17.9 - ACUTE KIDNEY FAILURE, UNSPECIFIED Status: Acute Comment: Serum creatinine higher, consistant with ROMAINE + CKD. Seen by nephrology. (7) Chronic kidney disease Code(s): N18.9 - CHRONIC KIDNEY DISEASE, UNSPECIFIED Status: Chronic Qualifiers: Chronic kidney disease stage: stage 4 (severe) Qualified Code(s): N18.4 - Chronic kidney disease, stage 4 (severe) (8) Diabetes mellitus type 2 in nonobese Code(s): E11.9 - TYPE 2 DIABETES MELLITUS WITHOUT COMPLICATIONS Status: Chronic - Plan * . Pt intubated on Vent, On levophed, proprofol on standby if needed, pt in restraints. contacted Pulm/CC Dr Haynes to inform him of new vent patient. CCM at present, wean levophed as able 45 minutes of critical care time spent at the bedside making vent adjustments, talking with family, assessing patient
[2017-09-24] MEDS: HumaLOG 300 UNITS/3 ML VIAL SC PRN ×2 (05:35→10:47)
[2017-09-24 05:52] LABS: #Eosinphils 0.2 thou/uL (0.0-0.7); #Lymphocytes 1.2 thou/uL (1.20-3.40); #Monocytes 1.2 thou/uL (0.11-0.59); #Neutrophils 8.9 thou/uL (1.40-6.50); %Basophils 0.4 % (0.0-1.0); %Eosinophils 1.9 % (0.0-10.0); %Lymphocytes 10.2 % (21.0-51.0); %Monocytes 10.6 % (0.0-10.0); %Neutrophils 76.9 % (42.0-75.0); Hemoglobin 9.9 g/dL (14.0-18.0); Mean Corpuscular HGB CONC 32.8 g/dL (32.0-36.0); Mean Corpuscular Volume 88.4 fl (80.0-94.0); Mean Platelet Volume 8.5 fL (7.4-10.4); Platelet Count 254 thou/uL (130-400); RBC Distribution Width 13.9 % (11.5-14.5); Red Blood Cell (RBC) Count 3.41 mill/uL (4.70-6.10); White Blood Cell (WBC) Count 11.6 thou/uL (4.8-10.8)
[2017-09-24 06:20] LABS: ALT (SGPT) 40 U/L (8-55); AST (SGOT) 54 U/L (5-34); Albumin 3.6 g/dL (3.5-5.0); Alkaline Phosphatase 67 U/L (40-150); Anion Gap 15 mmol/L (10-20); BUN (Urea Nitrogen) 23 mg/dL (8.4-25.7); Bilirubin, Total 1.6 mg/dL (0.2-1.2); Calc. Creatinine Clearance 23 mL/min (70-130); Calcium 8.4 mg/dL (7.8-10.44); Carbon Dioxide 26 mmol/L (22-29); Chloride 96 mmol/L (98-107); Estimated GFR-MDRD 15; Globulin 2.7 g/dL (2.4-3.5); Glucose 359 mg/dL (70-105); Potassium 4.3 mmol/L (3.5-5.1); Protein, Total 6.3 g/dL (6.0-8.3); Sodium 133 mmol/L (136-145)
--- NOTE | 2017-09-24 06:21 | OP ---
DATE OF PROCEDURE: 09/23/2017 at 2230 hours. PROCEDURE: Endotracheal intubation, rapid sequence. INDICATIONS: Acute hypoxemic respiratory failure, septic shock and need for respiratory stabilizatio n. INFORMED CONSENT: The sister was contacted and updated the condition. She gave consent to go ahead and intubate. DESCRIPTION: The patient has been transferred to the ICU with another episode of hypotension. He wa s apneic and not breathing well and not protecting his airway and needed to be intubated. The patient was given 20 mg of etomidate and 5 mg of Versed, once sedation was achieved, using a Sylvie ntosh #3 blade and fiberoptic handle, the vocal cords were directly visualized. Using a 7.5 endotrac heal tube with stylet and under direct visualization, the endotracheal tube was passed between the vo patt cords and into the trachea. It was secured at 23 cm at the teeth or 25 cm at the lips. The stylet was withdrawn. The Albert blade was withdrawn, and an end-tidal CO2 catheter graft was placed with good gold color. There was symmetrical breath sounds on both sides, and a chest x-ray w as ordered. An endotracheal tube was secured, the patient was placed on the ventilator. A portable chest x-ray was performed that confirmed the tip of the endotracheal tube approximately 3 cm above the juliet. Estimated blood loss zero. The patient tolerated procedure well. COMPLICATIONS: None.
[2017-09-24] MEDS: Norepinephrine 8 MG/250 ML BAG IVPB PRN ×2 (06:48→19:57)
[2017-09-24 06:50] LABS: Actual Bicarbonate (HCO3a) 25.2 mEq/L (22-26); Base Excess (BEa) 1.8 mEq/L (0 (+/-) 2.5); Calcium, Ionized 1.1 mmol/L (1.12-1.30); Hematocrit-ABG 33.4 % (42.0-52.0); Hemoglobin (Hb) 9.6 g/dL (14.0-18.0); O2 Tension (PaO2) 178.4 mmHg (80.0-100.0); Puncture Site LBA; pH, Arterial 7.48 (7.35-7.45)
[2017-09-24] MEDS ORDERED: Dextrose 50% Abboject 50 ML SYRINGE SLOW IVP PRN (07:34)
[2017-09-24] MEDS ORDERED: Dextrose 5% in Water 1,000 ML IV PRN (07:34)
[2017-09-24] MEDS ORDERED: Piperacillin/Tazobactam 3.375 GM in Sodium Chloride 0.9% 100 ML IVPB SCH ×2 (07:45→12:00)
--- NOTE | 2017-09-24 07:51 | PRG ---
DATE OF SERVICE: 09/24/2017 Thirty-five minutes critical care time. Mr. Loo had a respiratory arrest last night and was transferred to the CCU. Apparently he aspirate d. He also had a junctional rhythm, was hypotensive. He required initiation of Levophed. This morn ing he does awaken, follows some commands, indicates that he is in pain, but cannot specify where. PHYSICAL EXAMINATION: VITAL SIGNS: Temperature is 98.7, pulse 64, blood pressure 85/55 on Levophed at 20 mcg per minute. Total intake for the last 24 hours 2015, output 2320, weight 219 pounds. HEENT: Pupils reactive. Oropharynx clear. NECK: No JVD. LUNGS: Coarse rhonchi. CARDIOVASCULAR: S1, S2, bradycardic. ABDOMEN: Soft, nontender. EXTREMITIES: No clubbing, cyanosis, or edema. LABORATORY DATA: Sodium 133, potassium 4.3, chloride 96, CO2 26, BUN 23, creatinine 4.9, glucose 359 , AST 54, ALT 40, pH 7.48, pCO2 35, pO2 170 on assist control rate 10, tidal volume 400, PEEP 5, FiO2 100%. INR 1.2. White blood cell count 11.6, hemoglobin 9.9, hematocrit 30.2, platelet count 254. Chest x-ray shows diffuse bilateral haziness suggestive of pulmonary edema. ASSESSMENT: 1. Cardiopulmonary arrest last night. The patient may have aspirated. I feel like there could be s ome component of cardiac ischemia here, giving rise to transient pulmonary edema. 2. Acute respiratory failure requiring mechanical ventilation. 3. Aspiration pneumonia. 4. Chronic renal failure. 5. Colon mass. PLAN: 1. The patient will be restarted on Zosyn for aspiration coverage. 2. Cardiology will be consulted. 3. Echocardiogram will be repeated. 4. Sliding scale insulin coverage. 5. Hold carvedilol and Norvasc. 6. Continue dialysis intermittently as needed. 7. Check cortisol level, considered initiating steroids if cortisol level is decreased. 8. Initiate enteral tube feeds.
--- NOTE | 2017-09-24 08:48 | RAD ---
SUPINE PORTABLE CHEST 1 VIEW: Date: 09/24/17 HISTORY: 57-year-old male with respiratory distress. FINDINGS: Life support tubes in place. Compared to the prior 09/23/17 study, the NG tube has been added. Extens neal bilateral opacity through both lungs with some right pleural effusion. IMPRESSION: Placement of a NG tube. Extensive bilateral diffuse opacity changes with some progressive pleural ramsey nges in the right chest. POS: MATTHIAS
--- NOTE | 2017-09-24 09:16 | PRG ---
DATE OF SERVICE: 09/24/2017 Mr. Loo has been moved to the Intensive Care Unit since I saw him yesterday. Yesterday, he appeare d entirely within normal limits. He spoke without hesitancy and was clear and functional and appropr iate. Apparently sometime thereafter he became obtunded, had difficulty breathing and was very hypot ensive. He was transferred to the Intensive Care Unit where he was intubated and placed on intraveno us pressors. He currently is relatively stable with a heart rate of 52 and a blood pressure 104/56. His examination is more or less unchanged. From my standpoint, he is certainly not stable to conside r a colon resection. He will certainly be medically managed over the next several days to see if we can ever get him to the point that he is medically stable for a colon resection. He of course remain s anemic and that is related to his colon cancer. He was transfused 2 units of packed red blood cell s earlier today. PLAN: I will check in on him this upcoming week and see how he is doing to see if we can get him to a point where we can proceed with his surgery.
[2017-09-24] MEDS: Heparin 5,000 UNITS/ML VIAL SC SCH ×2 (09:31→21:06)
[2017-09-24] MEDS: NPH, Human Insulin Isophane 300 UNIT/3 ML VIAL SC SCH ×3 (09:58→21:32)
[2017-09-24] MEDS: Propofol 1,000 MG/100 ML VIAL IV PRN ×2 (09:59→16:38)
[2017-09-24 11:04] LABS: PT - Undiluted 15.5 SEC (12.0-14.7); PT 1:1 37C-90 min. Incubation 14.3 SEC
[2017-09-24 11:05] LABS: PTT 1:1 37C/90 MIN Incubation 33.4 SEC; PTT 1:1 Mix 32.9 SEC
--- NOTE | 2017-09-24 12:24 | EKG ---
Test Reason : Blood Pressure : / mmHG Vent. Rate : 051 BPM Atrial Rate : 043 BPM P-R Int : 000 ms QRS Dur : 096 ms QT Int : 470 ms P-R-T Axes : 000 047 218 degrees QTc Int : 433 ms Junctional rhythm with blocked atrial contractions noted. Notable rhythm change. Request longer rhyt hm strip to fully interpret rhythm. T wave abnormality, consider inferolateral ischemia Abnormal ECG When compared with ECG of 15-SEP-2017 15:38, (Unconfirmed) Junctional rhythm has replaced Sinus rhythm T wave inversion now evident in Inferior leads QT has shortened Confirmed by DAVID PRICE ([id number]) on 09/24/2017 12:23:48 PM Referred By: KIMANI Confirmed By:DAVID PRICE
[2017-09-24 15:28] LABS: CKMB 0.5 ng/mL (0-6.6); Troponin I 0.021 ng/mL (< 0.028)
[2017-09-24] MEDS: Piperacillin/Tazobactam 3.375 GM in Sodium Chloride 0.9% 100 ML IVPB SCH ×2 (16:49→21:06)
--- NOTE | 2017-09-24 18:46 | PRG ---
DATE OF SERVICE: 09/24/2017 SUBJECTIVE: The patient was seen and examined, intubated and noted with the following. OBJECTIVE: VITAL SIGNS: Blood pressure 119/54 and pulse of 65. HEENT: Unremarkable for endotracheal tube in place. CARDIOVASCULAR SYSTEM: First and second heart sounds were heard. RESPIRATORY SYSTEM: Reveals adventitious sound. DIGESTIVE SYSTEM: Reveals positive bowel sounds. EXTREMITIES: No significant peripheral edema. NEUROLOGIC: The patient is sedated and intubated. LABORATORY INVESTIGATION: Showed a hemoglobin of 9.9. Chemistry showed a creatinine of 4.95. IMPRESSION: 1. End-stage renal disease, hemodialysis dependent. 2. Respiratory failure, on life support. 3. Hypertension. 4. Hypervolemia, which has responded to ultrafiltration through hemodialysis. PLAN: 1. The patient to continue with renal replacement therapy. 2. Surgical consult for long-term dialysis access placement and discontinue the femoral catheter. 3. Further management to be dependent on the clinical course.
--- NOTE | 2017-09-24 20:14 | PDOC.PN ---
- Subjective Encounter Start Date: 09/24/17 Encounter Start Time: 12:30 Patient seen and examined. Overnight events noted. Transferred to CCU/ intubated. On Pressors - Objective Resuscitation Status: Resuscitation Status FULL:Full Resuscitation MAR Reviewed: Yes Vital Signs & Weight: Vital Signs (12 hours) Pulse BP 09/24/17 14:23 65 119/54 L 09/24/17 11:04 62 Weight Admit Weight 202 lb 14.4 oz Weight 219 lb 12.814 oz Most Recent Monitor Data Heart Rate from ECG 67 NIBP 124/63 NIBP BP-Mean 79 Respiration from ECG 20 SpO2 97 I&O: 09/23/17 09/24/17 09/25/17 06:59 06:59 06:59 Intake Total 1984 2016.5 Output Total 2320 7 Balance 1984 -303.5 -7 Result Diagrams: 09/24/17 05:20 09/24/17 05:20 Additional Labs: Accuchecks 09/24/17 09/24/17 09/24/17 17:14 10:38 05:29 POC Glucose 145 H 194 H 321 H 09/23/17 09/23/17 22:13 21:26 POC Glucose 307 H 277 H EKG Reviewed by me: Yes (Tele SR) Phys Exam - Physical Examination On Mech Vent/Sedated/on Pressors Respiratory: no wheezing, no rhonchi Bibasilar rales Cardiovascular: RRR, no rub Gastrointestinal: soft, positive bowel sounds Dx/Plan - Plan cont current plan of care, DVT proph w/heparin, DVT proph w/SCDs IMPRESSION: 1. s/p Cardiopulmonary arrest 09/23 - on Mech Vent/Pressors 2. ROMAINE on CKD 3/ESRD - prob due to ATN from prolonged hypotension - on dialysis 3. GI bleeding due to Colon Ca/Acute blood loss anemia - Awaiting surgery 4. Possible Aspiration Pneumonia - Started on Zosyn 5. Polysubstance abuse - counselled. 6. Cirrhosis - Hep B &C 7. HTN 8. Other issues per previous notes PLAN: * Cardiology consulted * Nephrology/surgery/Critical care following * Cont current meds as below * Cont to monitor * Cont supportive care Review of Systems - Review of Systems Other: Cannot obtain due to sedation - Medications/Allergies Allergies/Adverse Reactions: Allergies Allergy/AdvReac Type Severity Reaction Status Date / Time No Known Allergies Allergy Verified 02/18/15 19:53 Medications: Current Medications Acetaminophen (Tylenol) 650 mg PO Q4H PRN PRN Reason: Headache/Fever or Pain Acetaminophen (Tylenol) 650 mg PO Q4H PRN PRN Reason: Headache/Fever or Mild Pain Dextrose/Water (Dextrose 50%) 25 gm SLOW IVP PRN PRN PRN Reason: Hypoglycemia Dextrose/Water (Dextrose 50%) 25 gm SLOW IVP PRN PRN PRN Reason: Hypoglycemia Glucagon (Glucagon) 1 mg IM PRN PRN PRN Reason: Hypoglycemia Glucagon (Glucagon) 1 mg IM PRN PRN PRN Reason: Hypoglycemia Heparin Sodium (Porcine) (Heparin) 5,000 units SC BID LM Last Admin: 09/24/17 09:31 Dose: 5,000 units Sodium Chloride (Normal Saline 0.9%) 1,000 mls @ 0 mls/hr IV .Q0M LM PRN Reason: KVO Last Admin: 09/16/17 13:35 Dose: Not Given Dextrose/Water (D5w) 1,000 mls @ 0 mls/hr IV .Q0M PRN; As Directed PRN Reason: Hypoglycemia Norepinephrine Bitartrate (Levophed) 250 mls @ 0 mls/hr IVPB INF PRN; Protocol ; Titrate PRN Reason: Blood Pressure Last Admin: 09/24/17 19:57 Dose: 250 mls Fentanyl (Fentanyl Cadd) 250 mls @ 0 mls/hr IVPB INF LM; Titrate PRN Reason: Protocol Stop: 10/23/17 23:36 Fentanyl Citrate (Fentanyl Bolus) 250 mls @ 0 mls/hr IVPB PRN PRN; As Directed PRN Reason: Breakthrough pain Stop: 10/23/17 23:36 Dextrose/Water (D5w) 1,000 mls @ 0 mls/hr IV .Q0M PRN; As Directed PRN Reason: Hypoglycemia Piperacillin Sod/Tazobactam (Sod 3.375 gm/ Sodium Chloride) 100 mls @ 200 mls/ hr IVPB 0400,1000,1600,2200 LM Last Admin: 09/24/17 16:49 Dose: 100 mls Insulin Human Lispro (Humalog) 0 units SC .MODERATE SLIDING SC PRN PRN Reason: Moderate Correctional Scale Last Admin: 09/24/17 10:47 Dose: 2 units Insulin Human NPH (Humulin N) 15 unit SC BID REPLACED BY [facility] Last Admin: 09/24/17 10:52 Dose: 15 unit Lorazepam (Ativan) 2 mg SLOW IVP Q2H PRN PRN Reason: Anxiety to achieve Oconnell 2-3 Stop: 10/23/17 23:36 Miscellaneous Medication (Pharmacy To Dose) 1 each PO PRN PRN PRN Reason: Pharmacy to dose Morphine Sulfate/Sodium Chloride (Morphine 0.9% Nacl Pf 2 Mg/2ml) 2 mg IVP Q2H PRN PRN Reason: Breakthrough pain Ondansetron HCl (Zofran) 4 mg IVP Q6H PRN PRN Reason: Nausea/Vomiting Last Admin: 09/21/17 20:27 Dose: 4 mg Propofol (Diprivan) 1,000 mg IV INF PRN; Protocol PRN Reason: TO ACHIEVE OCONNELL SCORE 2-3 Stop: 10/23/17 23:36 Last Admin: 09/24/17 16:38 Dose: 1,000 mg Sodium Chloride (Flush - Normal Saline) 10 ml IVF Q12HR REPLACED BY [facility] Last Admin: 09/24/17 09:32 Dose: 10 ml Sodium Chloride (Flush - Normal Saline) 10 ml IVF PRN PRN PRN Reason: Saline Flush Last Admin: 09/21/17 20:28 Dose: 10 ml Sodium Chloride (Flush - Normal Saline) 10 ml IVF PRN PRN PRN Reason: Saline Flush
--- NOTE | 2017-09-24 20:23 | PDOC.PN ---
- Subjective Encounter Start Date: 09/24/17 Encounter Start Time: 14:00 Patient seen and examined. On [facility] Vent. Had seizure earlier. No overnight events - Objective Resuscitation Status: Resuscitation Status FULL:Full Resuscitation MAR Reviewed: Yes Vital Signs & Weight: Vital Signs (12 hours) Pulse Resp BP 09/24/17 18:00 28 H 09/24/17 16:00 22 H 09/24/17 14:23 65 119/54 L 09/24/17 14:00 28 H 09/24/17 12:00 25 H 09/24/17 11:04 62 09/24/17 10:00 26 H Weight Admit Weight 202 lb 14.4 oz Weight 219 lb 12.814 oz Most Recent Monitor Data Heart Rate from ECG 67 NIBP 124/63 NIBP BP-Mean 79 Respiration from ECG 20 SpO2 97 I&O: 09/23/17 09/24/17 09/25/17 06:59 06:59 06:59 Intake Total 1984 2016.5 Output Total 2320 7 Balance 1984 -303.5 -7 Result Diagrams: 09/24/17 05:20 09/24/17 05:20 Additional Labs: Accuchecks 09/24/17 09/24/17 09/24/17 17:14 10:38 05:29 POC Glucose 145 H 194 H 321 H 09/23/17 09/23/17 22:13 21:26 POC Glucose 307 H 277 H EKG Reviewed by me: Yes (Tele SR) Phys Exam - Physical [facility] Respiratory: no wheezing, no rhonchi Cardiovascular: RRR, no rub Gastrointestinal: soft Musculoskeletal: no edema Dx/Plan - Plan DVT proph w/SCDs * . Review of Systems - Review of Systems Other: Cannot obtain due to sedation - Medications/Allergies Allergies/Adverse Reactions: Allergies Allergy/AdvReac Type Severity Reaction Status Date / Time No Known Allergies Allergy Verified 02/18/15 19:53 Medications: Current Medications Acetaminophen (Tylenol) 650 mg PO Q4H PRN PRN Reason: Headache/Fever or Pain Acetaminophen (Tylenol) 650 mg PO Q4H PRN PRN Reason: Headache/Fever or Mild Pain Dextrose/Water (Dextrose 50%) 25 gm SLOW IVP PRN PRN PRN Reason: Hypoglycemia Dextrose/Water (Dextrose 50%) 25 gm SLOW IVP PRN PRN PRN Reason: Hypoglycemia Glucagon (Glucagon) 1 mg IM PRN PRN PRN Reason: Hypoglycemia Glucagon (Glucagon) 1 mg IM PRN PRN PRN Reason: Hypoglycemia Heparin Sodium (Porcine) (Heparin) 5,000 units SC BID [facility] Last Admin: 09/24/17 09:31 Dose: 5,000 units Sodium Chloride (Normal Saline 0.9%) 1,000 mls @ 0 mls/hr IV .Q0M LM PRN Reason: KVO Last Admin: 09/16/17 13:35 Dose: Not Given Dextrose/Water (D5w) 1,000 mls @ 0 mls/hr IV .Q0M PRN; As Directed PRN Reason: Hypoglycemia Norepinephrine Bitartrate (Levophed) 250 mls @ 0 mls/hr IVPB INF PRN; Protocol ; Titrate PRN Reason: Blood Pressure Last Admin: 09/24/17 19:57 Dose: 250 mls Fentanyl (Fentanyl Cadd) 250 mls @ 0 mls/hr IVPB INF ML; Titrate PRN Reason: Protocol Stop: 10/23/17 23:36 Fentanyl Citrate (Fentanyl Bolus) 250 mls @ 0 mls/hr IVPB PRN PRN; As Directed PRN Reason: Breakthrough pain Stop: 10/23/17 23:36 Dextrose/Water (D5w) 1,000 mls @ 0 mls/hr IV .Q0M PRN; As Directed PRN Reason: Hypoglycemia Piperacillin Sod/Tazobactam (Sod 3.375 gm/ Sodium Chloride) 100 mls @ 200 mls/ hr IVPB 0400,1000,1600,2200 [facility] Last Admin: 09/24/17 16:49 Dose: 100 mls Insulin Human Lispro (Humalog) 0 units SC .MODERATE SLIDING SC PRN PRN Reason: Moderate Correctional Scale Last Admin: 09/24/17 10:47 Dose: 2 units Insulin Human NPH (Humulin N) 15 unit SC BID [facility] Last Admin: 09/24/17 10:52 Dose: 15 unit Lorazepam (Ativan) 2 mg SLOW IVP Q2H PRN PRN Reason: Anxiety to achieve Oconnell 2-3 Stop: 10/23/17 23:36 Miscellaneous Medication (Pharmacy To Dose) 1 each PO PRN PRN PRN Reason: Pharmacy to dose Morphine Sulfate/Sodium Chloride (Morphine 0.9% Nacl Pf 2 Mg/2ml) 2 mg IVP Q2H PRN PRN Reason: Breakthrough pain Ondansetron HCl (Zofran) 4 mg IVP Q6H PRN PRN Reason: Nausea/Vomiting Last Admin: 09/21/17 20:27 Dose: 4 mg Propofol (Diprivan) 1,000 mg IV INF PRN; Protocol PRN Reason: TO ACHIEVE OCONNELL SCORE 2-3 Stop: 10/23/17 23:36 Last Admin: 09/24/17 16:38 Dose: 1,000 mg Sodium Chloride (Flush - Normal Saline) 10 ml IVF Q12HR LM Last Admin: 09/24/17 09:32 Dose: 10 ml Sodium Chloride (Flush - Normal Saline) 10 ml IVF PRN PRN PRN Reason: Saline Flush Last Admin: 09/21/17 20:28 Dose: 10 ml Sodium Chloride (Flush - Normal Saline) 10 ml IVF PRN PRN PRN Reason: Saline Flush
--- NOTE | 2017-09-24 21:26 | CON ---
DATE OF CONSULTATION: 09/24/2017 HISTORY OF PRESENT ILLNESS: The patient is a 57-year-old gentleman with a long history of hypertension, who presented with a GI hemorrhage and was noted to have developed a respiratory arrest and was emergently intubated. The patient has a previous history of hypertension. He has been admitted on multiple occasions with substance abuse and elevated blood pressure. He also has a history of diastolic heart failure secondary to noncompliance and diastolic heart failure. He has a long history of noncompliance. The patient underwent a stress test a year and half ago which revealed him to have evidence of anterior ischemia. The patient declined to undergo further evaluation. The patient was admitted with a GI hemorrhage. He had been diagnosed with colon carcinoma but declined to undergo further evaluation. Patient was admitted with a GI hemorrhage and yesterday was noted to develop a respiratory arrest. He developed a junctional rhythm. The patient was emergently intubated and transferred to the ICU. The patient is intubated and unable to give a coherent history. PAST MEDICAL HISTORY: 1. Hypertension. 2. Diabetes mellitus. 3. GI hemorrhage. PAST SURGICAL HISTORY:. ALLERGIES: None. SOCIAL HISTORY: Long history of use of illicit drugs. PHYSICAL EXAMINATION: GENERAL: Intubated gentleman. VITAL SIGNS: Blood pressure 114/58 on Levophed. NECK: Full. LUNGS: Clear to auscultation. HEART: Regular rate and rhythm, normal S1, S2. ABDOMEN: Nondistended. EXTREMITIES: Showed trace edema. LABORATORY DATA: Sodium was 133, potassium 4.3, chloride 96, HCO3 26, BUN 23, creatinine 4.9, glucose was 359. Troponin 0.018. White blood cell count 11.6, hemoglobin 9.9, hematocrit 30.2 and platelets 254. IMAGING: His EKG revealed normal sinus rhythm with a nonspecific ST abnormality. IMPRESSION: 1. Status post respiratory arrest. 2. Colon carcinoma. 3. Gastrointestinal hemorrhage. 4. Renal failure. 5. Substance abuse. 6. History of noncompliance. This gentleman presents after developing acute respiratory arrest and junctional rhythm. From a cardiac standpoint, felt like he may have developed aspiration pneumonia or acute ischemia. The patient is hypotensive at this time. We will check the patient's echocardiogram and will follow this patient with you through his hospitalization. CRITICAL CARE TIME: 30 minutes. SARA
[2017-09-25] MEDS: Piperacillin/Tazobactam 3.375 GM in Sodium Chloride 0.9% 100 ML IVPB SCH ×4 (04:30→21:59)
[2017-09-25] MEDS: Propofol 1,000 MG/100 ML VIAL IV PRN (06:53)
[2017-09-25 07:15] LABS: #Basophils 0.1 thou/uL (0.0-0.2); #Eosinphils 0.3 thou/uL (0.0-0.7); #Lymphocytes 1.1 thou/uL (1.20-3.40); #Monocytes 0.8 thou/uL (0.11-0.59); #Neutrophils 6.7 thou/uL (1.40-6.50); %Basophils 0.7 % (0.0-1.0); %Eosinophils 3.8 % (0.0-10.0); %Lymphocytes 12.6 % (21.0-51.0); %Monocytes 8.5 % (0.0-10.0); %Neutrophils 74.5 % (42.0-75.0); Hemoglobin 10.6 g/dL (14.0-18.0); Mean Corpuscular Hemoglobin 29.4 pg (27.0-31.0); Mean Corpuscular Volume 89.1 fl (80.0-94.0); Platelet Count 226 thou/uL (130-400); RBC Distribution Width 14.1 % (11.5-14.5)
[2017-09-25 07:26] LABS: Anion Gap 17 mmol/L (10-20); BUN (Urea Nitrogen) 27 mg/dL (8.4-25.7); Calc. Creatinine Clearance 17 mL/min (70-130); Calcium 8.8 mg/dL (7.8-10.44); Carbon Dioxide 25 mmol/L (22-29); Chloride 100 mmol/L (98-107); Estimated GFR-MDRD 10; Glucose 118 mg/dL (70-105); Potassium 3.6 mmol/L (3.5-5.1); Sodium 138 mmol/L (136-145)
[2017-09-25] MEDS: Heparin 5,000 UNITS/ML VIAL SC SCH ×2 (09:54→21:09)
[2017-09-25] MEDS: NPH, Human Insulin Isophane 300 UNIT/3 ML VIAL SC SCH ×2 (09:56→21:12)
--- NOTE | 2017-09-25 10:37 | RAD ---
1 VIEW CHEST: Date: 09/25/17 COMPARISON: 09/23/17. HISTORY: Respiratory distress. Ventilated patient. FINDINGS: Endotracheal and nasogastric tubes are noted. There is evidence of bilateral perihilar interstitial a nd alveolar infiltrates. The degree of opacification in the upper lobes has slightly decreased. Small bilateral effusions are noted. IMPRESSION: Opacification as above. Continued surveillance. POS: [facility]
--- NOTE | 2017-09-25 11:22 | PRG ---
DATE OF SERVICE: 09/25/2017 SUBJECTIVE: The patient is seen and examined at the bedside. He is in CCU bed #5. He is sedated. His vasopressors are off. There was no any unexpected event overnight. He is on a ventilator. His tidal volume is 400 mL frequencies. Respiratory rate is 10 and PEEP is 5. His neurological examinat ion is postponed since he is sedated. As I mentioned before, intubated. OBJECTIVE: LUNGS: Breath sounds diminished at both bases. HEART: S1 and S2 normal. No S3, no S4. ABDOMEN: Soft and nondistended. Bowel sounds are present. EXTREMITIES: No clubbing, cyanosis or edema. LABORATORY AND IMAGING DATA: Showed a white count of 9.0, hemoglobin 10.6, hematocrit 32.0 and plate let count is 226. Normal electrolytes. BUN of 27, creatinine 6.82, glucose 118, glycemia is ranging from 108-145 and calcium 8.8. Two sets of cardiac enzymes from yesterday and the day before were wi thin normal limits. Chest x-ray done this morning showed significant improvement of bilateral increa sed haziness, which is most likely secondary to a pulmonary edema. IMPRESSION AND PLAN: 1. Status post cardiopulmonary arrest. The patient was in junctional rhythm. When it happened, he was moved to the Intensive Care Unit, required vasopressors. Now, he is off the vasopressor and his blood pressure is maintaining in good range. He is intubated and Critical Care will make decision ab out whether he can be extubated today or he will be on a ventilator. Echocardiogram is ordered, it i s pending. Two sets of cardiac enzymes came back negative since this happened. Cardiology follows a nd will make decision whether he will need cardiac catheterization. 2. Acute kidney injury on chronic kidney injury. This is felt that it was secondary to prolonged hy potension. The patient developed ATN and now he is on dialysis p.r.n. 3. Colon cancer. The patient is awaiting surgery when his condition improves. 4. Gastrointestinal bleeding, secondary to colon cancer. His hemoglobin is 10.6, which is better th an what it was yesterday, which was 9.9. 5. Possible aspiration pneumonia. Patient is on Zosyn. We will continue that antibiotic. 6. Liver cirrhosis and history of hepatitis B and C. 7. Hypertension. 8. Polysubstance abuse. 9. Hyperglycemia, which seems to be doing better. At this point, the plan is to continue his suppor tive care. Critical care will make decision about extubation. We are waiting for the echocardiogram to come back and he will stay in a critical care unit for close observation.
--- NOTE | 2017-09-25 11:34 | PRG ---
DATE OF SERVICE: 09/25/2017 SERVICE: Pulmonary Medicine. INTERVAL HISTORY: The patient is doing great from a respiratory standpoint. He is awake on bicycle mechanic al ventilation. He is breathing comfortably. His saturations are much improved. He denies any ches t pain or shortness of breath. There were no overnight events. PHYSICAL EXAMINATION: VITAL SIGNS: Afebrile, pulse 77, blood pressure 145/71, respirations 14, saturation 98% on 27% FiO2 and PEEP of 5. GENERAL: The patient is awake, alert, in no apparent distress. LUNGS: Excellent air entry. There are crackles present. No prolonged expiratory phase. Rhonchi ar e present, but clear with cough. HEART: Normal rate, regular. ABDOMEN: Soft, nontender, nondistended, bowel sounds positive. MUSCULOSKELETAL: No cyanosis or clubbing. No pitting in the bilateral lower extremities. NEUROLOGIC: Grossly nonfocal. LABORATORY DATA: WBC 9.0, hemoglobin 10.6, platelets 226,000. INR 1.2. Creatinine 6.82. Otherwise , basic metabolic profile is unremarkable. Blood sugars are well controlled. Calcium 8.8. Toxicolo gy is positive for opiates and cocaine and hepatitis B serologies are abnormal. IMAGING: Chest x-ray demonstrates bilateral airspace opacifications reflecting probably layering eff usion and volume overload. Endotracheal tube is in decent position. There is an intracatheter cours ing below the level of the diaphragm. ASSESSMENT: 1. Acute hypoxic respiratory failure. 2. Pulseless electrical activity arrest with profound bradycardia, resolved. 3. Pneumonia secondary to aspiration. 4. Acute kidney injury on chronic kidney disease 3. 5. Colon mass. PLAN: The patient is currently stable from a hemodynamic and respiratory perspective. We will put h im on a spontaneous breathing trial. If he meets criteria, extubation will be considered. Dialysis is going to be performed today. A dialysis catheter will likely be placed on Wednesday or Wednesday when he goes for his hemicolectomy. Pulmonary or Critical Care will continue to follow while the patient remains in this location.
--- NOTE | 2017-09-25 13:06 | PDOC.CTH ---
Cardiology Progress Note - Subjective Remains intubated, sedated. - Objective Vital Signs Temp Resp 09/25/17 12:00 98.4 F 09/25/17 10:00 18 09/25/17 08:00 98.6 F 18 09/25/17 06:00 18 09/25/17 04:00 21 H 09/25/17 02:00 18 Admit Weight 202 lb 14.4 oz Weight 223 lb 8.78 oz 09/24/17 09/25/17 09/26/17 06:59 06:59 06:59 Intake Total 2016.5 742.8 479.4 Output Total 2320 27 65 Balance -303.5 715.8 414.4 - Physical Examination General/Neuro: other: (Intubated. ) Neck: no JVD present Lungs: CTA, other: Heart: RRR Abdomen: NT/ND Extremities: + edema B (1+) - Telemetry Telemetry Rhythm: NSR - Labs Result Diagrams: 09/25/17 07:06 09/25/17 07:06 Troponin/CKMB CK-MB (CK-2) 0.5 ng/mL (0-6.6) 09/24/17 13:11 Troponin I 0.021 ng/mL (< 0.028) 09/24/17 13:11 - Assessment/Plan 1. Respiratory insufficiency 2. Colon carcinoma 3. GI bleed. 4. Renal failure 5. Non compliance. 6. Substance abuse. PLAN: - Continue supportive care - No new recs.
--- NOTE | 2017-09-25 15:18 | CON ---
DATE OF CONSULTATION: 09/25/2017 REASON FOR CONSULTATION: Need for dialysis access. HISTORY: Mr. Loo is a 57-year-old man with multiple medical problems. He initially presented in [facility] with hypertension, abdominal pain, nausea, and vomiting and was found to have a splenic flexu re mass. He underwent a colonoscopy which confirmed adenocarcinoma, no evidence of metastatic diseas e was seen. Surgery was recommended, but the patient declined. He came back on the complaining of rectal bleeding. He was found to be anemic and was transfused and has gone back and forth about whether he wants surgery or not. He had apparently decided to proceed with surgery, but then had an episode of hypotension and unresponsiveness requiring a code. He was intubated and brought to the [facility], hypotensive, and was maintained on pressors all day yesterday. These were able to be weaned off o vernight. During the course of his hospitalization, he has developed acute on chronic renal failure and Dr. Abe Martinez began hemodialysis earlier this week after placement of femoral hemodialy sis catheter. He does not feel that his renal function is likely to improve. So, he has requested a tunneled hemodialysis catheter. According to the patient's nurse, he has been fairly stable overnig ht and is maintaining his blood pressure off of his Levophed. PAST MEDICAL HISTORY: Hypertension, diabetes, polysubstance abuse including cocaine abuse, colon can cer with resulting anemia, tobacco abuse, hepatitis B, hepatitis C and acute on chronic renal failure as well as a positive stress test, and coronary artery disease. PAST SURGICAL HISTORY: Laparoscopic cholecystectomy and endoscopy. ALLERGIES: He has no known drug allergies by report. OUTPATIENT MEDICATIONS: He has been reportedly noncompliant with many of his outpatient medications, but these include aspirin, atorvastatin, carvedilol, clonidine, 70/30 insulin, Imdur, and Procardia. INPATIENT MEDICATIONS: Include sliding scale insulin, subcutaneous heparin, Zosyn, and multiple prn' s. REVIEW OF SYSTEMS: Not obtainable as the patient is intubated and sedated. PHYSICAL EXAMINATION: VITAL SIGNS: He is afebrile, blood pressure 179/86, respirations 19, 93% saturated on the ventilator . Heart rate of 85. GENERAL: Reveals a healthy appearing -[place] man in no acute distress. He is not flushed o r toxic in appearance. He is not jaundiced or icteric. He is intubated and sedated, but arouses to voice and nods yes and no to questions on an intermittent basis. HEENT: Unremarkable. NECK: Supple, without lymphadenopathy. HEART: Regular in its rate and rhythm without murmurs, rubs or gallops. LUNGS: Clear. ABDOMEN: Soft and he does not exhibit any obvious tenderness. No palpable masses or hernias. EXTREMITIES: Warm and well perfused without edema. He has a femoral dialysis catheter in place. NEUROLOGIC: No focal deficits, although very limited due to his clinical status. He does move all h is extremities to command. PSYCHIATRIC: Unable to evaluate. LABS: His white count is normal at 9, hematocrit is 32 after transfusion, platelets 226. INR 1.2, P TT 37. Blood gas, pCO2 of 35, and PO2 of 178, pH of 7.48. Electrolytes are unremarkable. BUN and c reatinine are 27 and 6.82, glucose is well controlled. Chest x-ray performed this morning showed moustapha e bilateral perihilar infiltrates with some opacification in the upper lobes and some effusion. Abdo men and pelvis CT performed at the time of his admission showed a small lucency in the superior endpl ate of L4 vertebral body. ASSESSMENT: Acute on chronic renal failure in a patient with multiple medical problems. He was plan brian to undergo colectomy by Dr. De Los Santos, but this was canceled due to his decompensation and arrest. He has subsequently stabilized somewhat, but there is no urgency to place a tunneled hemodialysis c atheter this weekend. I will evaluate him on Wednesday and talk with Dr. De Los Santos about his plans for ma nagement of the patient's colon cancer. I anticipate placing a tunneled hemodialysis catheter on Wed or possibly later in the week if he is going to the operating room for colectomy.
--- NOTE | 2017-09-25 15:42 | PRG ---
DATE OF SERVICE: 09/25/2017 SUBJECTIVE: The patient was seen and examined, down, extubated. PHYSICAL EXAMINATION: VITAL SIGNS: Noted with the following vital signs. Blood pressure 184/85, pulse 88, respiratory rat e 16, O2 sat 96%. HEENT: Unremarkable. CARDIOVASCULAR: First and second heart sounds were heard. RESPIRATORY: Clear to auscultation. DIGESTIVE: Revealed a benign abdomen with positive bowel sounds. EXTREMITIES: No peripheral edema. SKIN: No new gross rash. LYMPHATICS: No peripheral lymphadenopathy. LABORATORY: Lab investigations showed a hemoglobin 10.6, creatinine of 6.82 with BUN of 27. IMPRESSION: 1. Chronic kidney disease 5 culminating into end-stage renal disease. 2. Respiratory failure, status post extubation. 3. Colonic cancer, awaiting surgery. PLAN: 1. The patient to continue with current hemodialysis. 2. Surgical consult for long-term dialysis access. 3. Further management to be dependent on the clinical course.
[2017-09-25] MEDS: Ondansetron HCl/PF 4 MG/2 ML Vial IVP PRN (20:12)
[2017-09-25] MEDS ORDERED: Carvedilol 25 MG TAB PO SCH (21:45)
[2017-09-25] MEDS ORDERED: NIFEdipine XL 90 MG TAB PO SCH (21:45)
[2017-09-25] MEDS: Acetaminophen 325 MG TAB PO PRN (22:07)
[2017-09-26] MEDS: Ondansetron HCl/PF 4 MG/2 ML Vial IVP PRN ×4 (01:26→21:19)
[2017-09-26] MEDS: Piperacillin/Tazobactam 3.375 GM in Sodium Chloride 0.9% 100 ML IVPB SCH ×4 (04:15→21:16)
[2017-09-26] MEDS: Acetaminophen 325 MG TAB PO PRN ×2 (04:15→07:37)
[2017-09-26 05:01] LABS: #Eosinphils 0.3 thou/uL (0.0-0.7); #Lymphocytes 0.9 thou/uL (1.20-3.40); #Monocytes 0.6 thou/uL (0.11-0.59); #Neutrophils 8.3 thou/uL (1.40-6.50); %Basophils 0.1 % (0.0-1.0); %Lymphocytes 8.5 % (21.0-51.0); %Monocytes 6.3 % (0.0-10.0); %Neutrophils 82.1 % (42.0-75.0); Mean Corpuscular HGB CONC 32.9 g/dL (32.0-36.0); Mean Corpuscular Hemoglobin 29.3 pg (27.0-31.0); Mean Platelet Volume 7.8 fL (7.4-10.4); Platelet Count 238 thou/uL (130-400); Red Blood Cell (RBC) Count 3.42 mill/uL (4.70-6.10); White Blood Cell (WBC) Count 10.1 thou/uL (4.8-10.8)
[2017-09-26 05:02] LABS: Anion Gap 13 mmol/L (10-20); BUN (Urea Nitrogen) 14 mg/dL (8.4-25.7); Calc. Creatinine Clearance 26 mL/min (70-130); Calcium 8.7 mg/dL (7.8-10.44); Carbon Dioxide 30 mmol/L (22-29); Chloride 98 mmol/L (98-107); Estimated GFR-MDRD 16; Glucose 108 mg/dL (70-105); Potassium 3.2 mmol/L (3.5-5.1); Sodium 138 mmol/L (136-145)
[2017-09-26] MEDS: NIFEdipine XL 90 MG TAB PO SCH (08:13)
[2017-09-26] MEDS: Carvedilol 25 MG TAB PO SCH ×2 (08:14→21:13)
[2017-09-26] MEDS: Heparin 5,000 UNITS/ML VIAL SC SCH ×2 (08:15→21:13)
[2017-09-26] MEDS: NPH, Human Insulin Isophane 300 UNIT/3 ML VIAL SC SCH ×2 (08:16→21:14)
--- NOTE | 2017-09-26 10:37 | PRG ---
DATE OF SERVICE: 09/26/2017 SUBJECTIVE: The patient was seen and examined at bedside. He is extubated. He is able to communica te with me without any problems. His mental function is within normal limits. He complains about so me nausea. He vomited this morning x1 and he has some abdominal discomfort in the upper parts of the abdomen. PHYSICAL EXAMINATION: VITAL SIGNS: Blood pressure is 148/74, pulse is 76, respiratory rate is 19, and pulse oximetry is 10 0%. HEENT: His pupils are responding to light properly. Conjunctivae pinkish. Sclerae is nonicteric. Oral mucosa is moist. NECK: Supple. LUNGS: Clear. HEART: S1, S2 normal, no S3, no S4. ABDOMEN: Soft, mildly tender in the epigastric area. No guarding, no masses. EXTREMITIES: No clubbing, cyanosis or edema. NEUROLOGIC: He is alert and oriented x4. There is no sensorimotor deficit present. Cranial nerves are intact. LABORATORY DATA: Showed white count of 10.1, hemoglobin 10.0, hematocrit 30.5, platelet count 238, 8 2% of neutrophils. Sodium of 138, potassium 3.2, chloride 98, CO2 30, creatinine 4.62, glucose 108. Glycemia by Accu-Chek ranges from 83-163, calcium 8.7. MICROBIOLOGY: Nothing new. IMPRESSION: 1. Status post cardiopulmonary arrest, status post mechanical ventilation support and extubation yes terday status post vasopressor use, now the patient is maintaining his blood pressure in good range w ithout any support. Cardiology is following. There is no new recommendation. 2. Acute kidney injury on chronic kidney injury. Dr. Fish is managing his hemodialysis. 3. Colon cancer, awaiting surgery by Dr. De Los Santos as soon as his condition is improved. 4. Gastrointestinal bleeding secondary to colon cancer. Hemoglobin is at 10.0. 5. Aspiration pneumonia, on Zosyn. 6. Hepatitis B and C, chronic and liver cirrhosis. 7. Hypertension. 8. Polysubstance abuse. The patient is asking all the time to get some narcotics. 9. Nausea and vomiting with some abdominal cramps. We will keep him on clear liquids and see whethe r this needs to be further investigated or it would get better on its own. We will plan to continue his supportive care. Critical Care is going to make a decision whether he will stay in the unit or h e can be transferred to telemetry floor. He uses a Trialysis catheter in the right groin and tunneled catheter is going to be placed on Wednesday or Wednesday by General Surgery before he was taken to the op erating room for his colectomy.
--- NOTE | 2017-09-26 12:36 | PDOC.CTH ---
Cardiology Progress Note - Subjective He has been extubated. He denies any chest pain, tightness, pressure. - Objective Vital Signs Temp Pulse Resp BP Pulse Ox 09/26/17 08:13 89 154/77 H 09/26/17 08:00 97.7 F 89 20 98 09/26/17 07:04 100 09/26/17 04:00 97.6 F Admit Weight 202 lb 14.4 oz Weight 219 lb 9.286 oz 09/25/17 09/26/17 09/27/17 06:59 06:59 06:59 Intake Total 742.8 1693.4 Output Total 27 990 85 Balance 715.8 703.4 -85 - Physical Examination General/Neuro: alert & oriented x3 Neck: no JVD present Lungs: unlabored respirations Heart: RRR Abdomen: NT/ND Extremities: + edema B (trace) - Telemetry Telemetry Rhythm: NSR - Labs Result Diagrams: 09/26/17 04:15 09/26/17 04:15 Troponin/CKMB CK-MB (CK-2) 0.5 ng/mL (0-6.6) 09/24/17 13:11 Troponin I 0.021 ng/mL (< 0.028) 09/24/17 13:11 - Assessment/Plan 1. Respiratory insufficiency, improved. 2. Colon carcinoma 3. GI bleed. 4. Renal failure 5. Non compliance. 6. Substance abuse. PLAN: - Continue current meds. - No new recs.
--- NOTE | 2017-09-26 13:39 | ULT ---
VEIN MAPPING BILATERAL UPPER EXTREMITIES: Date: 09/26/17 TECHNIQUE: Lafleur scale and Doppler color flow imaging with spectral analysis performed. CLINICAL HISTORY: Renal failure, venous mapping. FINDINGS: RIGHT UPPER EXTREMITY BRACHIAL ARTERY: 4.7 mm RADIAL ARTERY: 4.0 mm ULNAR ARTERY: 2.1 mm CEPHALIC VEIN Proximal Humerus: 3.5 mm Mid Humerus: 2.4 mm Distal Humerus: 2.0 mm Antecubital Fossa: 1.8 mm Proximal Forearm: 1.9 mm Mid-Distal Forearm: Clot and IV present, limiting further distal assessment BASILIC VEIN Proximal Humerus: 3.4 mm Mid Humerus: 3.4 mm Distal Humerus: 4.0 mm Antecubital Fossa: 3.5 mm Proximal Forearm: 3.3 mm Mid Forearm: 1.0 mm Distal Forearm: 1.5 mm LEFT UPPER EXTREMITY BRACHIAL ARTERY: 4.7 mm RADIAL ARTERY: 3.5 mm ULNAR ARTERY: 3.0 mm CEPHALIC VEIN Proximal Humerus: 2.9 mm Mid Humerus: 3.0 mm Distal Humerus: 3.0 mm Antecubital Fossa: 3.0 mm Proximal Forearm: 2.0 mm Mid Forearm: 1.4 mm Distal Forearm: 0.7 mm BASILIC VEIN Proximal Humerus: 3.0 mm Mid Humerus: 2.6 mm Distal Humerus: 2.0 mm Antecubital Fossa: 2.4 mm Proximal Forearm: 1.1 mm Mid Forearm: 1.5 mm Distal Forearm: 1.1 mm IMPRESSION: Bilateral upper extremity vein mapping as above. Incidental note of clot near indwelling IV of mid-di stal right forearm. POS: [facility]
--- NOTE | 2017-09-26 15:15 | PRG ---
DATE OF SERVICE: 09/26/2017 SERVICE: Pulmonary Medicine. INTERVAL HISTORY: The patient is doing great from a respiratory standpoint. He is breathing comfort ably. He has no specific complaints of nausea, vomiting, or diarrhea. Otherwise, there has been not able change in his condition. His hemoglobin remains stable. PHYSICAL EXAMINATION: VITAL SIGNS: Afebrile, pulse 61, blood pressure 126/62, respirations 16, saturation 100% on room air . GENERAL: Patient is awake, alert, in no apparent distress. LUNGS: Excellent air entry. No prolonged expiratory phase or wheezing. HEART: Normal rate, regular. ABDOMEN: Soft, nontender, nondistended. Bowel sounds positive. MUSCULOSKELETAL: No cyanosis or clubbing. No pitting in the bilateral lower extremities. NEUROLOGIC: Grossly nonfocal. LABORATORY DATA: WBC 10.1, hemoglobin 10.0, platelets 238,000. Creatinine 4.62, bicarbonate 30. Po tassium 3.2. Basic metabolic profile is otherwise unremarkable. ASSESSMENT: 1. Acute hypoxic respiratory failure, resolved. 2. Pulseless electrical activity with profound bradycardia, resolved. 3. Pneumonia secondary to aspiration. 4. Colon mass. 5. Acute blood loss anemia. 6. Acute kidney injury on chronic kidney disease 3. PLAN: The patient remains stable. My understanding he is going down for an operation tomorrow as we ll as dialysis catheter placement. Pulmonary Critical Care will continue to follow while he remains in this location. That being said, from my perspective, he is once again stable for transition out o f the ICU.
--- NOTE | 2017-09-26 17:36 | PRG ---
DATE OF SERVICE: 09/26/2017 SUBJECTIVE: The patient seems to be doing much better. Noted with the following vital signs. PHYSICAL EXAMINATION: VITAL SIGNS: Afebrile, O2 sat of 98% with blood pressure 128/68, respiratory rate of 18. HEENT: Unremarkable with moist oral mucosa. Neck is supple. No conjunctival injection or icterus. CARDIOVASCULAR: First and second heart sounds were heard. RESPIRATORY: Clear to auscultation. DIGESTIVE: Revealed a benign abdomen with positive bowel sounds. EXTREMITIES: No peripheral edema. SKIN: No new gross rash. LYMPHATICS: No peripheral lymphadenopathy. IMPRESSION: 1. Advanced chronic kidney disease, possibly culminating into end-stage renal disease. 2. Hypervolemia, which has responded well to ultrafiltration through hemodialysis. 3. Acute respiratory failure, status post ventilatory support. PLAN: 1. The patient likely to secure tunneled dialysis catheter, so that the femoral dialysis catheter ca n be discontinued. 2. Hemodialysis on Wednesday, , and Wednesday schedule while monitoring the renal function for any possible evidence of renal recovery. 3. Further management to be dependent on the clinical course.
[2017-09-26] MEDS: HumaLOG 300 UNITS/3 ML VIAL SC PRN ×2 (17:40→21:14)
[2017-09-27] MEDS: Piperacillin/Tazobactam 3.375 GM in Sodium Chloride 0.9% 100 ML IVPB SCH ×4 (04:10→21:29)
[2017-09-27 04:25] LABS: #Eosinphils 0.4 thou/uL (0.0-0.7); #Lymphocytes 1.2 thou/uL (1.20-3.40); #Monocytes 0.7 thou/uL (0.11-0.59); #Neutrophils 8.5 thou/uL (1.40-6.50); %Basophils 0.4 % (0.0-1.0); %Eosinophils 3.6 % (0.0-10.0); %Lymphocytes 11.3 % (21.0-51.0); %Monocytes 6.6 % (0.0-10.0); %Neutrophils 78.2 % (42.0-75.0); Hemoglobin 10.2 g/dL (14.0-18.0); Mean Corpuscular HGB CONC 33.1 g/dL (32.0-36.0); Mean Corpuscular Hemoglobin 29.3 pg (27.0-31.0); Mean Corpuscular Volume 88.5 fl (80.0-94.0); Mean Platelet Volume 7.8 fL (7.4-10.4); Platelet Count 223 thou/uL (130-400); Red Blood Cell (RBC) Count 3.49 mill/uL (4.70-6.10); White Blood Cell (WBC) Count 10.9 thou/uL (4.8-10.8)
[2017-09-27 04:44] LABS: Anion Gap 16 mmol/L (10-20); BUN (Urea Nitrogen) 18 mg/dL (8.4-25.7); Calc. Creatinine Clearance 19 mL/min (70-130); Calcium 8.5 mg/dL (7.8-10.44); Carbon Dioxide 28 mmol/L (22-29); Chloride 95 mmol/L (98-107); Estimated GFR-MDRD 12; Glucose 86 mg/dL (70-105); Potassium 3.2 mmol/L (3.5-5.1); Sodium 136 mmol/L (136-145)
--- NOTE | 2017-09-27 08:02 | PRG ---
DATE OF SERVICE: 09/27/2017 Mr. Loo was extubated over the weekend and has done reasonably well. PHYSICAL EXAMINATION: VITAL SIGNS: Temperature 97.7, pulse 68, blood pressure 167/82. 24 hour intake 2216, output 400. W eight 220 pounds. HEENT: Unremarkable. NECK: No JVD. CHEST: S1, S2 regular, no murmur. LUNGS: Clear. ABDOMEN: Soft, nontender. EXTREMITIES: No edema. LABORATORY DATA: Sodium 136, potassium 3.2, chloride 95, CO2 28, BUN 18, creatinine 6.1, glucose 86. White blood cell count 10.9, hematocrit 30.9, platelet count 223. ASSESSMENT: 1. Status post acute respiratory failure requiring mechanical ventilation. 2. Acute renal failure. 3. Colon cancer. PLAN: 1. Transfer to telemetry. 2. Increase activity as tolerated. 3. Decrease the NPH insulin given his a.m. hypoglycemia.
[2017-09-27] MEDS: NIFEdipine XL 90 MG TAB PO SCH (10:31)
[2017-09-27] MEDS: Carvedilol 25 MG TAB PO SCH ×2 (10:31→19:25)
[2017-09-27] MEDS: Heparin 5,000 UNITS/ML VIAL SC SCH ×2 (10:32→21:27)
[2017-09-27] MEDS: Ondansetron HCl/PF 4 MG/2 ML Vial IVP PRN (10:36)
[2017-09-27] MEDS ORDERED: NPH, Human Insulin Isophane 300 UNIT/3 ML VIAL SC SCH (11:15)
[2017-09-27] MEDS: NPH, Human Insulin Isophane 300 UNIT/3 ML VIAL SC SCH ×3 (11:46→21:14)
--- NOTE | 2017-09-27 11:53 | PRG ---
DATE OF SERVICE: 09/27/2017 HISTORY OF PRESENT ILLNESS: Mr. Loo has been extubated since I last saw him. He is hospital day # 14 following his most recent admission. He presented secondary to rectal bleeding related to his col on cancer. He initially refused colon surgery, and then subsequently has had at least 3 episodes of hypotension/obtunded/respiratory failure, for which he has been aggressively treated in the Intensive Care Unit. He has developed renal failure, for which he is currently receiving hemodialysis. He co ntinues to be followed by Nephrology, Cardiology, Pulmonary Medicine, and Hospitalist Service. Dr. Hermilo zaragoza was consulted for dialysis access, as it appears that his end-stage renal disease will require longer and potentially permanent access. Echocardiogram was ordered and has been done, but the results are currently not available. PHYSICAL EXAMINATION: On examination today, he is afebrile. Pulse currently is 188/96, heart rate i s 76. He is alert and oriented x3 and conversant. He tolerated a regular diet this morning. His ex amination is unchanged. He is clear to auscultation. Abdomen is benign with no palpable masses. LABORATORY STUDIES: Reveal his hemoglobin is stable at 10.2 after having been transfused a few days ago. His chemistries reveal a hypochloremia with his chloride level dropping down to 95. Potassium slightly low at 3.2 and creatinine is elevated at 6.1. ASSESSMENT AND PLAN: Patient with multiple fairly severe problems. Unfortunately, the anemia that i s being caused by his colon cancer certainly contributed to all of these issues. Unless he decides n ot to treat this at all (which he is not currently planning), then he will need to have a segmental c olon resection at some point and he seems to be appropriately stable today to proceed. I spoke with Dr. Haynes regarding this. Patient agrees to proceed at this time. Bowel prep will be ordered for today, and plan to proceed with surgery tomorrow assuming he remains stable overnight and tomorrow. Further dialysis access per Dr. Costello.
[2017-09-27] MEDS ORDERED: GoLYTELY 4,000 ml Bottle PO SCH (12:15)
[2017-09-27] MEDS ORDERED: cefOXitin 2 GM, Syringe 1 ML in Sterile Water 10 ML SLOW IVP SCH (12:15)
[2017-09-27] MEDS ORDERED: CEFAZOLIN/Water 2 GM/20 ML SYRINGE SLOW IVP SCH (12:30)
[2017-09-27] MEDS: Metoclopramide HCl 10 MG TAB PO SCH ×3 (14:18→23:26)
[2017-09-27] MEDS: Erythromycin Base 250 MG TAB PO SCH ×3 (14:19→21:28)
[2017-09-27] MEDS: Neomycin 500 mg Tablet PO SCH ×3 (14:20→21:28)
--- NOTE | 2017-09-27 14:32 | PDOC.PN ---
- Subjective Encounter Start Date: 09/27/17 Encounter Start Time: 13:30 -: old records requested/rev Pt seen and examined, chart reviewed in its entirety. PT transferred to the floor today. asking to have mccullough out. plan to OR tomorrow for colon mass resection. No f/c, no N/V/D/C, BP has remained stable. Has done well since extubation 10 point ROS performed and neg for all systems except as above - Objective Resuscitation Status: Resuscitation Status FULL:Full Resuscitation MAR Reviewed: Yes Vital Signs & Weight: Vital Signs (12 hours) Temp Pulse Resp BP Pulse Ox 09/27/17 12:47 98.3 F 73 18 09/27/17 12:00 98.3 F 09/27/17 10:31 77 199/94 H 09/27/17 08:00 98.4 F 74 17 96 09/27/17 07:00 98.4 F 09/27/17 04:00 97.7 F Weight Admit Weight 202 lb 14.4 oz Weight 220 lb 10.923 oz Most Recent Monitor Data Heart Rate from ECG 70 NIBP 188/96 NIBP BP-Mean 100 Respiration from ECG 16 SpO2 96 I&O: 09/26/17 09/27/17 09/28/17 06:59 06:59 06:59 Intake Total 1693.4 2316 680 Output Total 990 400 745 Balance 703.4 1916 -65 Result Diagrams: 09/27/17 04:04 09/27/17 04:04 Additional Labs: Accuchecks 09/27/17 09/27/17 09/26/17 11:26 06:26 20:42 POC Glucose 143 H 75 189 H 09/26/17 16:49 POC Glucose 189 H Radiology Reviewed by me: Yes EKG Reviewed by me: Yes Phys Exam - Physical Examination Constitutional: NAD HEENT: PERRLA, moist MMs, sclera anicteric, oral pharynx no lesions Neck: no nodes, no JVD, supple, full ROM Respiratory: no wheezing, no rales, no rhonchi, clear to auscultation bilateral Cardiovascular: RRR, no significant murmur, no rub Gastrointestinal: soft, non-tender, no distention, positive bowel sounds Musculoskeletal: pulses present, edema present Neurological: non-focal, normal sensation, moves all 4 limbs Lymphatic: no nodes Psychiatric: normal affect, A&O x 3 Skin: no rash, normal turgor, cap refill <2 seconds Dx/Plan (1) Acute hypoxemic respiratory failure Code(s): J96.01 - ACUTE RESPIRATORY FAILURE WITH HYPOXIA Status: Resolved (2) Metabolic encephalopathy Code(s): G93.41 - METABOLIC ENCEPHALOPATHY Status: Resolved (3) Anemia due to blood loss, acute Code(s): D62 - ACUTE POSTHEMORRHAGIC ANEMIA Status: Resolved Comment: due to above. (4) Hypotension Status: Resolved Qualifiers: Hypotension type: other hypotension type Qualified Code(s): I95.89 - Other hypotension Comment: resolved.. (5) Lower GI bleeding Code(s): K92.2 - GASTROINTESTINAL HEMORRHAGE, UNSPECIFIED Status: Chronic Comment: hb/hct stable. TO OR tomorrow for colon mass resection (6) ROMAINE (acute kidney injury) Code(s): N17.9 - ACUTE KIDNEY FAILURE, UNSPECIFIED Status: Acute Comment: Serum creatinine higher, consistant with ROMAINE + CKD. Seen by nephrology. (7) Chronic kidney disease Code(s): N18.9 - CHRONIC KIDNEY DISEASE, UNSPECIFIED Status: Chronic Qualifiers: Chronic kidney disease stage: on chronic dialysis Qualified Code(s): N18.6 - End stage renal disease; Z99.2 - Dependence on renal dialysis; Z99.2 - Dependence on renal dialysis; Z99.2 - Dependence on renal dialysis; Z99.2 - Dependence on renal dialysis (8) Diabetes mellitus type 2 in nonobese Code(s): E11.9 - TYPE 2 DIABETES MELLITUS WITHOUT COMPLICATIONS Status: Chronic (9) Colonic mass Code(s): K63.9 - DISEASE OF INTESTINE, UNSPECIFIED Status: Acute Comment: resection planned tomorrow. Follow up on path - Plan cont current plan of care, PT/OT, social group worker * .
[2017-09-27] MEDS: Acetaminophen 325 MG TAB PO PRN (19:25)
[2017-09-27] MEDS: Atorvastatin Calcium 40 MG TAB PO SCH (21:27)
[2017-09-27] MEDS: Labetalol HCl 100 MG/20 ML VIAL SLOW IVP PRN ×2 (23:26→23:52)
--- NOTE | 2017-09-27 23:43 | PRG ---
DATE OF SERVICE: 09/27/2017 SUBJECTIVE: The patient was seen and examined, noted with the following vital signs. PHYSICAL EXAMINATION: VITAL SIGNS: Afebrile with temperature 97.5, pulse 77, respiratory rate of 18, O2 sat of 96% with a blood pressure of 142/79. HEENT AND NECK: Unremarkable with moist oral mucosa. Neck is supple. No conjunctival injection or icterus. CARDIOVASCULAR: First and second heart sounds were heard. RESPIRATORY: Clear to auscultation. DIGESTIVE: Revealed a benign abdomen. LABORATORY INVESTIGATIONS: Showed a hemoglobin 10.2. Chemistry showed a creatinine of 6.13, bicarbo neftali of 18. IMPRESSION: 1. End-stage renal disease, hemodialysis dependent. 2. Acute hypoxic respiratory failure. PLAN: Hemodialysis per his schedule of Wednesday, , and Wednesday.
[2017-09-28] MEDS ORDERED: cloNIDine 0.2 MG TAB PO SCH (00:30)
[2017-09-28] MEDS ORDERED: cloNIDine 0.1mg/24 Hour PATCH TD SCH (02:30)
[2017-09-28] MEDS: hydrALAZINE 20 MG/ML VIAL SLOW IVP PRN (03:03)
[2017-09-28] MEDS: Piperacillin/Tazobactam 3.375 GM in Sodium Chloride 0.9% 100 ML IVPB SCH ×4 (03:07→23:55)
[2017-09-28] MEDS ORDERED: CEFAZOLIN/Water 2 GM/20 ML SYRINGE SLOW IVP SCH (04:45)
[2017-09-28] MEDS: Metoclopramide HCl 10 MG TAB PO SCH ×2 (05:26→12:30)
[2017-09-28] MEDS: Labetalol HCl 100 MG/20 ML VIAL SLOW IVP PRN (06:25)
[2017-09-28 06:27] LABS: #Eosinphils 0.4 thou/uL (0.0-0.7); #Lymphocytes 1.5 thou/uL (1.20-3.40); #Monocytes 0.9 thou/uL (0.11-0.59); #Neutrophils 8.9 thou/uL (1.40-6.50); %Basophils 0.2 % (0.0-1.0); %Eosinophils 3.3 % (0.0-10.0); %Monocytes 7.3 % (0.0-10.0); %Neutrophils 76.2 % (42.0-75.0); Hemoglobin 10.7 g/dL (14.0-18.0); Mean Corpuscular Hemoglobin 29.1 pg (27.0-31.0); Mean Platelet Volume 7.7 fL (7.4-10.4); Platelet Count 222 thou/uL (130-400); RBC Distribution Width 14.1 % (11.5-14.5); Red Blood Cell (RBC) Count 3.68 mill/uL (4.70-6.10); White Blood Cell (WBC) Count 11.7 thou/uL (4.8-10.8)
[2017-09-28 06:29] LABS: Hemoglobin A1c 6.8 % (4.0-6.0)
[2017-09-28 06:54] LABS: Anion Gap 20 mmol/L (10-20); BUN (Urea Nitrogen) 20 mg/dL (8.4-25.7); Calc. Creatinine Clearance 16 mL/min (70-130); Calcium 8.1 mg/dL (7.8-10.44); Carbon Dioxide 24 mmol/L (22-29); Chloride 96 mmol/L (98-107); Estimated GFR-MDRD 10; Glucose 97 mg/dL (70-105); Magnesium 1.8 mg/dL (1.6-2.6); Potassium 3.5 mmol/L (3.5-5.1); Sodium 136 mmol/L (136-145)
--- NOTE | 2017-09-28 07:56 | PRG ---
DATE OF SERVICE: 09/28/2017 I saw him in dialysis this morning. He appears to be doing well, had no complaints. PHYSICAL EXAMINATION: VITAL SIGNS: Temperature 97.4, pulse 70, respirations 20, O2 sat 96%, blood pressure 204/110. HEENT: Unremarkable. NECK: No JVD. CHEST: Clear. CARDIAC: S1 and S2 regular. ABDOMEN: Soft. EXTREMITIES: No edema. LABORATORY DATA: White blood cell count 11.7, hematocrit 32.4, platelet count 222. Sodium 136, pota ssium 3.5, chloride 96, CO2 24, BUN 20, creatinine 6.9, glucose 97. ASSESSMENT: 1. Chronic renal failure. 2. Status post acute respiratory failure. 3. Colon cancer. 4. Hyperglycemia. PLAN: Surgery is planned for this morning after dialysis, he may need to stay intubated afterwards. The Hospitalist group is looking after his blood pressure. He is continuing IV antibiotics for now.
[2017-09-28] MEDS: Carvedilol 25 MG TAB PO SCH (08:20)
[2017-09-28] MEDS: Heparin 5,000 UNITS/ML VIAL SC SCH (08:20)
[2017-09-28] MEDS: NPH, Human Insulin Isophane 300 UNIT/3 ML VIAL SC SCH ×2 (08:21→23:57)
[2017-09-28] MEDS ORDERED: NIFEdipine XL 60 MG TAB PO SCH ×2 (09:00→21:00)
[2017-09-28] MEDS: Ondansetron HCl/PF 4 MG/2 ML Vial IVP PRN (09:32)
[2017-09-28] MEDS: Nitroglycerin 2% Ointment 1 INCH/1 GM Packet TOP SCH ×2 (09:55→23:58)
--- NOTE | 2017-09-28 12:54 | PDOC.PN ---
- Subjective Encounter Start Date: 09/28/17 Encounter Start Time: 11:00 Pt seen at the conclusion of HD. tolerated well. 4.6 liters removed. Pt hypertensive overnight, fairly refractory to Labetalol, 60mg, hydralazine only 5mg once, clonidine 01. then patch, and 2" nitropaste. after hD, down to 153/77. Pt to go to OR later today for colon resection. No F/C, no N/V/D/C, no CP or SOB. 10 point ROs performed and neg for all systems except as per HPI - Objective Resuscitation Status: Resuscitation Status FULL:Full Resuscitation MAR Reviewed: Yes Vital Signs & Weight: Vital Signs (12 hours) Temp Pulse Resp BP BP BP Pulse Ox 09/28/17 11:39 98.2 F 70 18 140/74 91 L 09/28/17 08:20 70 09/28/17 07:34 204/110 H 09/28/17 07:30 98.2 F 70 18 204/110 H 09/28/17 06:25 70 09/28/17 06:22 20 219/112 H 09/28/17 05:12 194/96 H 09/28/17 05:08 97.4 F L 70 20 202/103 H 96 09/28/17 05:03 193/105 H 09/28/17 03:03 71 180/90 H 09/28/17 03:00 180/90 H 09/28/17 02:55 71 20 189/94 H 09/28/17 02:32 98.5 F 71 20 92 L 09/28/17 02:13 72 20 183/92 H 09/28/17 01:10 98.5 F 72 20 181/85 H 92 L Weight Admit Weight 202 lb 14.4 oz Weight 207 lb 12.8 oz Most Recent Monitor Data Heart Rate from ECG 70 NIBP 188/96 NIBP BP-Mean 100 Respiration from ECG 16 SpO2 96 I&O: 09/27/17 09/28/17 09/29/17 06:59 06:59 06:59 Intake Total 2316 22069 Output Total 400 7470 Balance 1916 2544 Result Diagrams: 09/28/17 05:55 09/28/17 05:55 Additional Labs: Accuchecks 12/12/17 12/11/17 12/11/17 05:46 20:44 16:20 POC Glucose 104 103 135 H Radiology Reviewed by me: Yes EKG Reviewed by me: Yes Phys Exam - Physical Examination Constitutional: NAD HEENT: PERRLA, moist MMs, sclera anicteric, oral pharynx no lesions Neck: no nodes, no JVD, supple, full ROM Respiratory: no wheezing, no rales, no rhonchi, clear to auscultation bilateral Cardiovascular: RRR, no rub Gastrointestinal: soft, non-tender, no distention, positive bowel sounds Musculoskeletal: pulses present, edema present Neurological: non-focal, normal sensation, moves all 4 limbs Lymphatic: no nodes Psychiatric: normal affect, A&O x 3 Skin: no rash, normal turgor, cap refill <2 seconds Dx/Plan (1) Acute hypoxemic respiratory failure Code(s): J96.01 - ACUTE RESPIRATORY FAILURE WITH HYPOXIA Status: Resolved (2) Metabolic encephalopathy Code(s): G93.41 - METABOLIC ENCEPHALOPATHY Status: Resolved (3) Anemia due to blood loss, acute Code(s): D62 - ACUTE POSTHEMORRHAGIC ANEMIA Status: Resolved Comment: due to above. (4) Hypotension Status: Resolved Qualifiers: Hypotension type: other hypotension type Qualified Code(s): I95.89 - Other hypotension Comment: resolved.. (5) Lower GI bleeding Code(s): K92.2 - GASTROINTESTINAL HEMORRHAGE, UNSPECIFIED Status: Chronic Comment: hb/hct stable. TO OR today for colon mass resection (6) ROMAINE (acute kidney injury) Code(s): N17.9 - ACUTE KIDNEY FAILURE, UNSPECIFIED Status: Acute Comment: Serum creatinine higher, consistant with ROMAINE + CKD. Seen by nephrology. (7) Chronic kidney disease Code(s): N18.9 - CHRONIC KIDNEY DISEASE, UNSPECIFIED Status: Chronic Qualifiers: Chronic kidney disease stage: on chronic dialysis Qualified Code(s): N18.6 - End stage renal disease; Z99.2 - Dependence on renal dialysis; Z99.2 - Dependence on renal dialysis; Z99.2 - Dependence on renal dialysis; Z99.2 - Dependence on renal dialysis (8) Diabetes mellitus type 2 in nonobese Code(s): E11.9 - TYPE 2 DIABETES MELLITUS WITHOUT COMPLICATIONS Status: Chronic (9) Colonic mass Code(s): K63.9 - DISEASE OF INTESTINE, UNSPECIFIED Status: Acute Comment: resection planned today. Follow up on path - Plan cont current plan of care * .
[2017-09-28] MEDS ORDERED: Propofol 200 MG/20 ML VIAL ONE (16:20)
[2017-09-28] MEDS ORDERED: Succinylcholine Chloride 20 MG/ML 10 ml SYRINGE FS ONE (16:20)
[2017-09-28] MEDS ORDERED: Lidocaine 1% PF 5 ML VIAL ONE (16:20)
[2017-09-28] MEDS ORDERED: ePHEDrine/0.9% NaCl/PF SYRINGE 50 mg/10 ml ONE (16:20)
[2017-09-28] MEDS ORDERED: EPINEPHrine 1 MG/ML AMP ONE (17:01)
[2017-09-28] MEDS ORDERED: Midazolam HCl 2 mg/2 ml Vial ONE ×3 (17:02→21:07)
[2017-09-28] MEDS ORDERED: Fentanyl 100 MCG/2 ML VIAL ONE (17:02)
[2017-09-28] MEDS ORDERED: Fentanyl 250 MCG/5 ML VIAL ONE (17:49)
[2017-09-28] MEDS ORDERED: Lidocaine 2% PF 5 ML VIAL ONE (17:51)
[2017-09-28] MEDS ORDERED: Bupivacaine/Epinephrine 0.25% 30 ML VIAL ONE (17:51)
[2017-09-28] MEDS ORDERED: Sodium Chloride 0.9% 10 ML ONE ×2 (17:52)
[2017-09-28] MEDS ORDERED: Heparin 10,000 UNITS/1 ML VIAL ONE (17:53)
[2017-09-28] MEDS ORDERED: Lidocaine 1% w/Epinephrine 1:200K 30 ML VIAL ONE (19:55)
[2017-09-28] MEDS ORDERED: Piperacillin/Tazobactam 3.375 GM VIAL ONE ×2 (20:31→22:15)
[2017-09-28] MEDS ORDERED: Rocuronium Bromide 50 MG/5 ML VIAL ONE (21:07)
--- NOTE | 2017-09-28 21:46 | PRG ---
DATE OF SERVICE: 09/28/2017 SUBJECTIVE: The patient was seen and examined today at dialysis and was hypertensive with systolic b lood pressure above 200. Otherwise, no new complaints. OBJECTIVE: HEENT AND NECK: Unremarkable. Moist oral mucosa. Neck was supple. No conjunctival injection. No icterus. CARDIOVASCULAR: First and second heart sounds were heard. RESPIRATORY: Clear to auscultation. DIGESTIVE: Revealed a benign abdomen with positive bowel sounds. EXTREMITIES: No peripheral edema. SKIN: No new gross rash. LYMPHATICS: No peripheral lymphadenopathy. IMPRESSION: 1. End-stage renal disease, hemodialysis dependent. 2. Gastrointestinal malignancy surgery. 3. Hypertension, suboptimally controlled. PLAN: 1. We will adjust the antihypertensive medications to optimize hemodynamics. 2. home visit field care manager consult for outpatient dialysis placement. 3. Further management will be dependent on the clinical course. The patient is unlikely to undergo permanent dialysis catheter placement after which the femoral dial ysis catheter can be discontinued.
[2017-09-28] MEDS ORDERED: Sedation Protocol FS ONE (23:40)
[2017-09-28] MEDS ORDERED: Morphine 2 MG/ML SYRINGE SLOW IVP PRN (23:40)
[2017-09-28 23:43] LABS: Actual Bicarbonate (HCO3a) 24.2 mEq/L (22-26); Base Excess (BEa) -1.1 mEq/L (0 (+/-) 2.5); CO2 Tension 42.9 mmHg (35.0-45.0); Calcium, Ionized 1.1 mmol/L (1.12-1.30); Hemoglobin (Hb) 9.3 g/dL (14.0-18.0); O2 Tension (PaO2) 101.4 mmHg (80.0-100.0); pH, Arterial 7.37 (7.35-7.45)
[2017-09-28 23:44] LABS: Puncture Site RRA
[2017-09-28 23:45] LABS: ALV-art Gradient 273.975 (0-20)
[2017-09-28] MEDS: Acetaminophen 1,000 MG in Premix Bag 1 BAG IVPB SCH (23:56)
[2017-09-28] MEDS: Sodium Chloride 0.9% 1,000 ML IV SCH (23:57)
[2017-09-28 23:58] LABS: #Eosinphils 0.2 thou/uL (0.0-0.7); #Lymphocytes 1.1 thou/uL (1.20-3.40); #Monocytes 0.8 thou/uL (0.11-0.59); #Neutrophils 9.8 thou/uL (1.40-6.50); %Basophils 0.2 % (0.0-1.0); %Eosinophils 1.8 % (0.0-10.0); %Lymphocytes 9.5 % (21.0-51.0); %Monocytes 6.9 % (0.0-10.0); %Neutrophils 81.7 % (42.0-75.0); Hemoglobin 9.5 g/dL (14.0-18.0); Mean Corpuscular HGB CONC 32.2 g/dL (32.0-36.0); Mean Corpuscular Hemoglobin 28.8 pg (27.0-31.0); Mean Corpuscular Volume 89.3 fl (80.0-94.0); Mean Platelet Volume 7.6 fL (7.4-10.4); Platelet Count 218 thou/uL (130-400)
--- NOTE | 2017-09-29 00:02 | RAD ---
AP VIEW CHEST: 09/28/17 HISTORY: Intubated patient, postoperative radiograph chest. AP view chest is obtained. There is a nasogastric tube in place, distal tip just passed the gastroeso phageal junction. This should be advanced 4 to 5 cm to be in optimum location. The endotracheal tube is in good position. EKG leads seen over the chest. The radiopaque drain or catheter is seen over the right abdomen. This is over the area of soft tissue just medial to the right hepatic lobe. IMPRESSION: Nasogastric tube needs to be advanced to be in optimum position. Endotracheal tube is in good positio n. Pulmonary vascular congestion is seen. POS: [facility]
[2017-09-29] MEDS: Heparin 5,000 UNITS/ML VIAL SC SCH ×3 (00:03→20:58)
[2017-09-29] MEDS: Nitroglycerin 2% Ointment 1 INCH/1 GM Packet TOP SCH ×5 (00:03→20:58)
[2017-09-29 00:06] LABS: INR-International Normal Ratio 1.2; PTT 31.9 SEC (22.9-36.1); Prothrombin Time 15.6 SEC (12.0-14.7)
[2017-09-29 00:10] LABS: Anion Gap 17 mmol/L (10-20); BUN (Urea Nitrogen) 13 mg/dL (8.4-25.7); Calc. Creatinine Clearance 24 mL/min (70-130); Calcium 7.8 mg/dL (7.8-10.44); Carbon Dioxide 24 mmol/L (22-29); Chloride 102 mmol/L (98-107); Estimated GFR-MDRD 16; Glucose 102 mg/dL (70-105); Potassium 3.7 mmol/L (3.5-5.1); Sodium 139 mmol/L (136-145)
[2017-09-29] MEDS: Piperacillin/Tazobactam 3.375 GM in Sodium Chloride 0.9% 100 ML IVPB SCH ×6 (00:40→18:21)
[2017-09-29] MEDS: Atorvastatin Calcium 40 MG TAB PO SCH ×2 (00:41→20:57)
[2017-09-29] MEDS: Metoclopramide HCl 10 MG TAB PO SCH (00:41)
[2017-09-29] MEDS: Carvedilol 25 MG TAB PO SCH ×2 (00:42→17:57)
[2017-09-29] MEDS ORDERED: Propofol 1,000 MG/100 ML VIAL IV ONE (02:53)
[2017-09-29] MEDS: Morphine 4 MG/ML VIAL SLOW IVP PRN ×4 (03:43→20:58)
[2017-09-29 04:23] LABS: #Basophils 0.1 thou/uL (0.0-0.2); #Eosinphils 0.2 thou/uL (0.0-0.7); #Lymphocytes 1.1 thou/uL (1.20-3.40); #Monocytes 1.1 thou/uL (0.11-0.59); #Neutrophils 11.9 thou/uL (1.40-6.50); %Basophils 0.5 % (0.0-1.0); %Eosinophils 1.4 % (0.0-10.0); %Lymphocytes 7.8 % (21.0-51.0); %Monocytes 7.8 % (0.0-10.0); %Neutrophils 82.6 % (42.0-75.0); Hemoglobin 9.6 g/dL (14.0-18.0); Mean Corpuscular HGB CONC 32.7 g/dL (32.0-36.0); Mean Corpuscular Hemoglobin 29.1 pg (27.0-31.0); Mean Corpuscular Volume 89.1 fl (80.0-94.0); Mean Platelet Volume 7.6 fL (7.4-10.4); Platelet Count 214 thou/uL (130-400); RBC Distribution Width 14.3 % (11.5-14.5); White Blood Cell (WBC) Count 14.4 thou/uL (4.8-10.8)
[2017-09-29 04:34] LABS: Anion Gap 20 mmol/L (10-20); BUN (Urea Nitrogen) 16 mg/dL (8.4-25.7); Calc. Creatinine Clearance 22 mL/min (70-130); Calcium 7.8 mg/dL (7.8-10.44); Carbon Dioxide 23 mmol/L (22-29); Chloride 101 mmol/L (98-107); Estimated GFR-MDRD 15; Glucose 112 mg/dL (70-105); Potassium 3.8 mmol/L (3.5-5.1); Sodium 140 mmol/L (136-145)
[2017-09-29] MEDS: Acetaminophen 1,000 MG in Premix Bag 1 BAG IVPB SCH ×3 (06:11→17:58)
[2017-09-29] MEDS ORDERED: DC Sedation Protocol FS ONE (07:20)
--- NOTE | 2017-09-29 07:38 | PRG ---
DATE OF SERVICE: 09/29/2017 A 35 minutes critical care time. SUBJECTIVE: The patient is doing well. He had a laparotomy yesterday. He was left intubated overni ght, because of previous problems with respiratory failure. OBJECTIVE: VITAL SIGNS: On exam, temperature is 98.8, pulse 73, blood pressure 154/82. He is on no vasopressor . Total intake 10,014, output 7470. HEENT: Unremarkable. NECK: No JVD. CHEST: Clear. CARDIAC: S1 and S2 regular. ABDOMEN: Soft. Surgical scar is noted. EXTREMITIES: No edema. LABORATORY DATA: White blood cell count 14, hematocrit 29.4, platelet count 214,000. Sodium 140, po tassium 3.8, chloride 101, CO2 23, BUN 60, creatinine 4.8, glucose 112. X-RAY FINDINGS: Chest x-ray shows some mild pulmonary edema on the left. ASSESSMENT: 1. Post-laparotomy. 2. Acute respiratory failure requiring mechanical ventilation. 3. Acute renal failure. 4. Colon cancer. PLAN: 1. Extubate and observe. 2. Intermittent hemodialysis is indicated. 3. Continue IV Zosyn for previous aspiration. 4. Subcutaneous insulin.
[2017-09-29] MEDS ORDERED: Famotidine/PF 20 mg/2ml Vial SLOW IVP SCH (09:00)
[2017-09-29] MEDS: NPH, Human Insulin Isophane 300 UNIT/3 ML VIAL SC SCH ×2 (09:05→20:59)
--- NOTE | 2017-09-29 09:20 | PRG ---
DATE OF SERVICE: 09/29/2017 Mr. Loo is postoperative day #1 from a laparoscopic left hemicolectomy for a colon malignancy. He was left intubated last night following the surgery. This morning, he was alert and stable, and has already been extubated. He is conversant with me and aside from some minor abdominal discomfort, has no complaints. PHYSICAL EXAMINATION: VITAL SIGNS: He is afebrile, pulse 75, blood pressure 141/94, oxygen saturation is 100% on 2 liters nasal cannula. LUNGS: Clear to auscultation. HEART: Regular rate and rhythm. ABDOMEN: Has well healed incisions with minimal tenderness and some hypoactive bowel sounds. EXTREMITIES: He has right and left femoral dialysis catheters in place, the left is a new cuffed cat heter. His right femoral catheter has been used for IV access. LABORATORY STUDIES: Reveal that his hemoglobin is stable at 9.6. White blood cell count is slightly elevated at 14.4, platelet count is normal at 214. Chemistry profile reveals normal electrolytes. Creatinine is elevated at 4.85, glucose is well controlled with a recent high of 116. ASSESSMENT: He is stable following laparoscopic left hemicolectomy. I will initiate clear liquids t blanca and try to increase his activity. His oral medications will be resumed as well. [place] catheter will be removed in the morning.
--- NOTE | 2017-09-29 09:49 | OP ---
DATE OF PROCEDURE: 09/28/2017 PREOPERATIVE DIAGNOSIS: Distal transverse colon cancer. POSTOPERATIVE DIAGNOSIS: Distal transverse colon cancer. OPERATION PERFORMED: Laparoscopic hand-assisted left hemicolectomy. SURGEON: Dr. Bryce De Los Santos ANESTHESIA: General endotracheal. INDICATIONS: The patient is a 57-year-old black male. He was diagnosed with colon cancer a few week s ago. He presents to the operating room at this time for resection of the involved area. OPERATIVE PROCEDURE IN DETAIL: Informed consent was obtained. The patient taken to the operating ro om where general endotracheal anesthesia was obtained with the patient in supine position. As he had persistent renal failure, permanent dialysis access was requested and Dr. Costello presented at the b eginning the operation to place a cuffed left femoral hemodialysis catheter. This followed unsuccess ful attempt at placement of internal jugular catheters. He was in stable condition as she completed her portion of the procedure. The abdomen was prepped with ChloraPrep and draped in sterile fashion. Local anesthetic was infiltra jose and a 5 mm right paramedian incision was created through which a Veress needle was passed into th e peritoneal cavity and pneumoperitoneum established using carbon dioxide up to a pressure of 15 mmHg . A 5 mm trocar port was passed through this same incision. Laparoscopic camera was passed through this port. Under direct vision, an additional 5 mm port was placed in the left lower abdomen and a s ite was selected for the extraction site in the left upper abdomen. An 8 cm oblique incision was cre ated in the left upper abdomen and muscle splitting technique was used to gain access to the abdomina l cavity and the Ronal wound retractor was placed followed by the GelPort. Left hand was passed int o the abdominal cavity. The malignancy was palpable in the distal transverse colon. The liver had a n abnormal fibrotic appearance, but no evidence of metastatic disease. Attention was turned first to the left colon. The white line of Toldt was incised and the colon was mobilized medially. Mobiliza tion was carried up to the splenic flexure which was widely mobilized as well. The omentum was disse cted off of the transverse colon up to about 5 cm from the malignancy in order to allow distal mobili zation. The patient was found to have a very mobile and redundant sigmoid colon that actually reache d higher into the abdomen, than did the left colon, even with full mobilization. After full mobilization, the splenic flexure as well as the transverse and left colons were mobilized extracorporeally through the wound retractor. I selected a site on the transverse colon about 10 cm from the malignancy. This was cleared of its mesentery and divided with a single fire of the SARA-75 stapler. Due to the mobility, I selected a segment of the proximal sigmoid colon which was also cleared of its mesentery and divided with a single firing of the SARA stapler. I then meticulously took down the me sentery using the LigaSure device. The dissection was carried deep into the mesentery as possible, r emoving the vessels as close to their origin as possible. There was at least one enlarged lymph node in the transverse mesocolon that was identified. Specimen was passed off the field. An isoperistaltic anastomosis was created with an enterotomies in the distal segment of the transvers e colon and about 8 cm from the end of the sigmoid colon. The common enterotomy was then closed with a single transverse firing of the SARA-75 stapler. The anastomosis was widely buttressed with interr upted sutures of 3-0 silk and the anastomosis was dropped down into the abdominal cavity. It appeare d to be widely patent and entirely viable. A relatively lengthy irrigation and hemostasis maneuvers then followed. There was much more oozing t emerson is typical from the left colonic bed as well as the division line of the mesentery of the transve rse colon. There was no spleen injury. There was just continued oozing. The patient had undergone dialysis earlier in the day and had some heparin flushed with his catheter placement, but it was not felt that either of these would cause this problem. Nonetheless, about 45 minutes was spent obtainin g appropriate hemostasis with irrigation and use of the LigaSure. There was never any high flow bloo d loss, just continued oozing that was felt necessary to control. At the point that all bleeding was controlled, ports removed under direct vision and pneumoperitoneum was evacuated. The abdomen was thoroughly washed and all laparoscopic equipment was removed. Gowns and gloves were changed. Sterile drapes were placed around the abdominal field. The fascia was closed in 2 layers u sing running suture of #1 PDS using the closing tray. The wound was then copiously irrigated with ab out 2 liters of irrigant. The remainder of the incisions were closed with 3-0 and 4-0 Monocryl sutur e and Dermabond was placed externally. The patient tolerated the procedure well. Blood loss was estimated about 300 mL. There were no comp lications. The patient tolerated the procedure well and had remained hemodynamically stable. Ernestine olivares of his recent medical problems, it was decided to leave him intubated overnight. He was therefore taken to the Intensive Care Unit intubated, but in stable condition.
[2017-09-29] MEDS: NIFEdipine XL 60 MG TAB PO SCH (10:18)
[2017-09-29] MEDS: Famotidine 20 MG TAB PO SCH (10:19)
[2017-09-29] MEDS: Sodium Chloride 0.9% 1,000 ML IV SCH ×2 (10:24→22:08)
--- NOTE | 2017-09-29 12:37 | PDOC.PN ---
- Subjective Encounter Start Date: 09/29/17 Encounter Start Time: 09:20 PT did well in surgery, discussed with Agustina Costello and Filiberto. Colon surgery went off without event. Vascular access attempt revealed one vein clotted, contralateral with anomalous variant and couldnt be threaded. Permanent access in groin placed. Pt left on vent overnight, no acute events. extubated early this morning to 2L NC, doing well. No f/C, no N/V/D/C, no CP, no SOb, BP has remained normal 10 point ROS performed and neg for all systems except as per HPI - Objective Resuscitation Status: Resuscitation Status FULL:Full Resuscitation MAR Reviewed: Yes Vital Signs & Weight: Vital Signs (12 hours) Temp Pulse Resp BP Pulse Ox 09/29/17 12:00 97.8 F 09/29/17 10:18 73 179/95 H 09/29/17 07:45 99.0 F 09/29/17 07:29 97 09/29/17 07:20 73 160/83 H 09/29/17 06:00 22 H 09/29/17 05:00 74 160/83 H 09/29/17 04:09 100 09/29/17 04:00 98.8 F 18 09/29/17 02:00 13 09/29/17 01:24 74 09/29/17 01:16 100 09/29/17 00:55 12 Weight Admit Weight 202 lb 14.4 oz Weight 204 lb 9.423 oz Most Recent Monitor Data Heart Rate from ECG 75 NIBP 179/87 NIBP BP-Mean 97 Respiration from ECG 20 SpO2 99 I&O: 09/28/17 09/29/17 09/30/17 06:59 06:59 06:59 Intake Total 04512 856 260 Output Total 7470 786 320 Balance 2544 70 -60 Result Diagrams: 09/29/17 03:20 09/29/17 03:20 Additional Labs: Accuchecks 09/29/17 09/28/17 09/28/17 06:11 23:36 22:07 POC Glucose 116 H 109 99 09/28/17 09/28/17 16:44 11:44 POC Glucose 86 88 Radiology Reviewed by me: Yes EKG Reviewed by me: Yes Phys Exam - Physical Examination Constitutional: NAD HEENT: PERRLA, moist MMs, sclera anicteric, oral pharynx no lesions Neck: no nodes, no JVD, supple, full ROM Respiratory: no wheezing, no rales, no rhonchi, clear to auscultation bilateral Cardiovascular: RRR, no significant murmur, no rub Gastrointestinal: soft, non-tender, no distention, positive bowel sounds Musculoskeletal: edema present Neurological: non-focal, normal sensation, moves all 4 limbs Lymphatic: no nodes Psychiatric: normal affect, A&O x 3 Skin: no rash, normal turgor, cap refill <2 seconds Deviation from normal: abdmonial incision C/d/I Dx/Plan (1) Acute hypoxemic respiratory failure Code(s): J96.01 - ACUTE RESPIRATORY FAILURE WITH HYPOXIA Status: Resolved Comment: extubated agian post op to ME, doing well (2) Metabolic encephalopathy Code(s): G93.41 - METABOLIC ENCEPHALOPATHY Status: Resolved (3) Anemia due to blood loss, acute Code(s): D62 - ACUTE POSTHEMORRHAGIC ANEMIA Status: Resolved Comment: due to above. follow post op partial colectomy (4) Hypotension Status: Resolved Qualifiers: Hypotension type: other hypotension type Qualified Code(s): I95.89 - Other hypotension Comment: resolved.. (5) Lower GI bleeding Code(s): K92.2 - GASTROINTESTINAL HEMORRHAGE, UNSPECIFIED Status: Chronic Comment: hb/hct stable. s/p colon mass resection. AM labs (6) ROMAINE (acute kidney injury) Code(s): N17.9 - ACUTE KIDNEY FAILURE, UNSPECIFIED Status: Acute Comment: Serum creatinine higher, consistant with ROMAINE + CKD. Seen by nephrology. (7) Chronic kidney disease Code(s): N18.9 - CHRONIC KIDNEY DISEASE, UNSPECIFIED Status: Chronic Qualifiers: Chronic kidney disease stage: on chronic dialysis Qualified Code(s): N18.6 - End stage renal disease; Z99.2 - Dependence on renal dialysis; Z99.2 - Dependence on renal dialysis; Z99.2 - Dependence on renal dialysis; Z99.2 - Dependence on renal dialysis Comment: HD tomorrow (8) Diabetes mellitus type 2 in nonobese Code(s): E11.9 - TYPE 2 DIABETES MELLITUS WITHOUT COMPLICATIONS Status: Chronic (9) Colonic mass Code(s): K63.9 - DISEASE OF INTESTINE, UNSPECIFIED Status: Acute Comment: resection 09/28. Follow up on path - Plan cont current plan of care, PT/OT, out of bed/ambulate * .
[2017-09-29] MEDS ORDERED: HYDROcodone/Acetaminophen 7.5/325 mg Tablet PO PRN (22:57)
[2017-09-30] MEDS: Piperacillin/Tazobactam 3.375 GM in Sodium Chloride 0.9% 100 ML IVPB SCH ×2 (00:11→05:15)
--- NOTE | 2017-09-30 01:02 | PRG ---
DATE OF SERVICE: 09/29/2017 SUBJECTIVE: The patient was seen and examined. No new complaints. Noted with the following vital si gns. OBJECTIVE: VITAL SIGNS: Blood pressure 179/95, pulse 73, afebrile. HEENT: Unremarkable with moist oral mucosa. No conjunctival injection or icterus. NECK: Supple. CARDIOVASCULAR SYSTEM: First and second heart sounds were heard. RESPIRATORY SYSTEM: Clear to auscultation. DIGESTIVE SYSTEM: Revealed a benign abdomen with positive bowel sounds. EXTREMITIES: No peripheral edema. SKIN: No new gross rash. LYMPHATICS: No peripheral lymphadenopathy. IMPRESSION: 1. Chronic kidney disease stage 5 consistent with end-stage renal disease. 2. Hypertension, suboptimally controlled. 3. Colonic carcinoma, status post resection. PLAN: 1. The director case management consultation for outpatient dialysis placement. 2. Continue renal supportive measures. 3. Hemodialysis as per schedule on Wednesday, Wednesday, and Wednesday.
[2017-09-30] MEDS: Morphine 4 MG/ML VIAL SLOW IVP PRN ×4 (01:24→22:03)
[2017-09-30 05:26] LABS: Anion Gap 16 mmol/L (10-20); BUN (Urea Nitrogen) 22 mg/dL (8.4-25.7); Calc. Creatinine Clearance 19 mL/min (70-130); Calcium 7.8 mg/dL (7.8-10.44); Carbon Dioxide 23 mmol/L (22-29); Chloride 97 mmol/L (98-107); Estimated GFR-MDRD 13; Glucose 98 mg/dL (70-105); Potassium 3.5 mmol/L (3.5-5.1); Sodium 132 mmol/L (136-145)
[2017-09-30 05:32] LABS: #Eosinphils 0.5 thou/uL (0.0-0.7); #Lymphocytes 0.9 thou/uL (1.20-3.40); #Monocytes 1.1 thou/uL (0.11-0.59); #Neutrophils 7.4 thou/uL (1.40-6.50); %Basophils 0.4 % (0.0-1.0); %Eosinophils 4.8 % (0.0-10.0); %Lymphocytes 9.1 % (21.0-51.0); %Monocytes 10.7 % (0.0-10.0); %Neutrophils 75.1 % (42.0-75.0); Hemoglobin 8.4 g/dL (14.0-18.0); Mean Corpuscular HGB CONC 32.5 g/dL (32.0-36.0); Mean Corpuscular Hemoglobin 29.3 pg (27.0-31.0); Platelet Count 168 thou/uL (130-400); RBC Distribution Width 14.3 % (11.5-14.5); Red Blood Cell (RBC) Count 2.88 mill/uL (4.70-6.10); White Blood Cell (WBC) Count 9.9 thou/uL (4.8-10.8)
--- NOTE | 2017-09-30 08:11 | PRG ---
DATE OF SERVICE: 09/30/2017 He had a good night. He is complaining of some mild abdominal pain. He is about to start dialysis t his morning. PHYSICAL EXAMINATION: VITAL SIGNS: His temperature is 98, pulse 65, blood pressure 151/88, O2 saturation 100% on nasal can nula, 24-hour intake 4376, output 1145. Most of that with urine. HEENT: Unremarkable. NECK: No JVD. LUNGS: Coarse rhonchi. CARDIOVASCULAR: S1, S2 regular. ABDOMEN: Soft, mildly distended. Surgical scar is well-healing. EXTREMITIES: No clubbing, cyanosis, or edema. LABORATORY DATA: White blood cell count 9.9, hemoglobin 8.4, hematocrit 25.9, platelet count 168. S odium 132, potassium 3.5, chloride 97, CO2 23, BUN 22, creatinine 5.6, glucose 98. ASSESSMENT: 1. Status post resection of colon cancer. 2. Status post multiple episodes of acute respiratory failure related to pulmonary edema and perhaps aspiration. 3. Acute renal failure. 4. Status post encephalopathy. PLAN: The patient can be transferred to the floor. I will leave him on telemetry monitoring for at least the next 24 hours. We will as the physical therapy team to get him up and walk him. Hopefully he can advance on his diet today.
[2017-09-30] MEDS: Heparin 5,000 UNITS/ML VIAL SC SCH ×2 (09:10→21:57)
[2017-09-30] MEDS: NPH, Human Insulin Isophane 300 UNIT/3 ML VIAL SC SCH ×2 (09:11→22:13)
[2017-09-30] MEDS: NIFEdipine XL 60 MG TAB PO SCH (09:12)
[2017-09-30] MEDS: Carvedilol 25 MG TAB PO SCH ×2 (09:13→17:05)
[2017-09-30] MEDS: Famotidine 20 MG TAB PO SCH (09:13)
[2017-09-30] MEDS: Nitroglycerin 2% Ointment 1 INCH/1 GM Packet TOP SCH (09:13)
[2017-09-30] MEDS ORDERED: Heparin 10,000 UNITS/ 10 ML VIAL ONE (10:00)
--- NOTE | 2017-09-30 10:56 | PDOC.OP ---
Operative Note - Operative Note Operative Note: PROCEDURE: Left femoral tunneled hemodialysis catheter with ultrasound and fluoroscopic guidance DATE OF PROCEDURE: 09/28/2017 SURGEON: Miko Costello M.D. 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 Patent left femoral vein with normal drainage into the inferior vena cava. HISTORY: Patient is a 57-year-old man with multiple medical problems recently diagnosed with colon cancer. He had multiple episodes of GI bleeding, and a hypotensive arrest of unclear etiology and is currently in acute renal failure undergoing dialysis via a right femoral hemodialysis catheter. A tunneled catheter has been requested for ongoing hemodialysis needs. PROCEDURE IN DETAIL: After informed consent was obtained and appropriate preoperative antibiotics were administered patient was taken to the operating room he was placed in supine position and general endotracheal anesthesia was administered. The bilateral neck and chest were prepped and draped in standard sterile fashion and a sterile ultrasound probe used to identify the right internal jugular vein. This appeared to have a large thrombus within the vein, which was not compressible, making it inappropriate for dialysis access. Attention was then turned to the left internal jugular vein. This was patent and compressible and was easily accessed under direct ultrasound guidance. There was good flow of nonpulsatile dark venous blood and a wire threaded easily. However on fluoroscopy the wire was progressing down the left side of the chest instead of crossing over to the right side as would be appropriate to access the superior vena cava. The wire was drawn back into the neck and multiple attempts to made to direct it into the superior vena cava without success. It was felt that the patient had a large collateral vein and anomalous drainage. This impression was later confirmed by locating in reviewing an old CT angiogram of the chest from a few years back showing drainage of contrast from the left arm via collaterals down a large anomalous vessel and the left chest and into the inferior vena cava. Since neither internal jugular vein was appropriate for dialysis access attention was then turned to the femoral veins. The patient has a temporary femoral dialysis catheter in the right groin so the left groin was prepped and draped in standard sterile fashion and the patent compressible left femoral vein identified by sterile ultrasound. This was accessed under direct ultrasound guidance and excellent flow of dark venous nonpulsatile blood obtained. A wire threaded easily and was confirmed by fluoroscopy to be in the inferior vena cava. The tunnel catheter was brought up from a small incision over the anterior thigh positioning the cuff a centimeter from the skin exit site. The femoral vein was then sequentially dilated over the wire and a sheath and dilator placed over the wire. The wire and dilator removed leaving the sheath in place. The tunneled catheter was then placed through the sheath which was split and removed leaving the catheter in place. The course was confirmed to be smooth is on fluoroscopy and both ports easily aspirated and easily flushed without resistance. Heparin was instilled to the quantity specified on the hub. The femoral incision was closed in 2 layers with 4-0 Monocryl suture and Dermabond applied. The exit site was snugged up around the catheter with an additional 4-0 Monocryl suture and Dermabond applied. The hub was secured to the skin with nylon suture and once the Dermabond was dry a Biopatch and Tegaderm dressing was placed. The patient tolerated the procedure well. Estimated blood loss was minimal. There were no complications. There were no specimens.
[2017-09-30] MEDS ORDERED: Tuberculin PPD 0.1 ML VIAL I-DERMAL SCH (11:00)
--- NOTE | 2017-09-30 11:10 | PDOC.PN ---
- Subjective Encounter Start Date: 09/30/17 Encounter Start Time: 08:50 Pt sleepy today. pain better controlled, suspect pain meds making him somnolent. On HD at time seen, plan to remove 4600ml today. No F/C,no CP or sOB, no n/V/D/C, no hypotension. BP up [id number] systolic before HD denies N/V, states he is hungry and wants to eat 10 point ROS performed and neg for all systems except as per hPI - Objective Resuscitation Status: Resuscitation Status FULL:Full Resuscitation MAR Reviewed: Yes Vital Signs & Weight: Vital Signs (12 hours) Temp Pulse Resp Pulse Ox 09/30/17 09:12 61 09/30/17 08:00 97.8 F 61 14 100 09/30/17 07:00 97.8 F 09/30/17 03:11 100 09/30/17 03:00 98 F Weight Admit Weight 202 lb 14.4 oz Weight 207 lb 10.807 oz Most Recent Monitor Data Heart Rate from ECG 68 NIBP 112/69 NIBP BP-Mean 86 Respiration from ECG 22 SpO2 92 I&O: 09/29/17 09/30/17 10/01/17 06:59 06:59 06:59 Intake Total 856 4376 180 Output Total 786 1145 245 Balance 70 3231 -65 Result Diagrams: 09/30/17 04:41 09/30/17 04:41 Additional Labs: Accuchecks 09/29/17 09/29/17 09/29/17 20:58 17:15 12:38 POC Glucose 130 H 110 99 Radiology Reviewed by me: Yes EKG Reviewed by me: Yes Phys Exam - Physical Examination Constitutional: NAD HEENT: PERRLA, moist MMs, sclera anicteric, oral pharynx no lesions Neck: no nodes, no JVD, supple, full ROM Respiratory: no wheezing, no rales, no rhonchi, clear to auscultation bilateral Cardiovascular: RRR, no significant murmur, no rub Gastrointestinal: soft, non-tender, no distention, positive bowel sounds Musculoskeletal: pulses present, edema present Neurological: non-focal, normal sensation, moves all 4 limbs Lymphatic: no nodes Psychiatric: normal affect, A&O x 3 Skin: no rash, normal turgor, cap refill <2 seconds Deviation from normal: abdominal incision c/D/I, left femoral tunnled HD catheter C/D/i Dx/Plan (1) Acute hypoxemic respiratory failure Code(s): J96.01 - ACUTE RESPIRATORY FAILURE WITH HYPOXIA Status: Resolved Comment: doing well on Nc, wean as tolerated (2) Metabolic encephalopathy Code(s): G93.41 - METABOLIC ENCEPHALOPATHY Status: Resolved (3) Anemia due to blood loss, acute Code(s): D62 - ACUTE POSTHEMORRHAGIC ANEMIA Status: Resolved Comment: due to above. follow post op partial colectomy (4) Hypotension Status: Resolved Qualifiers: Hypotension type: other hypotension type Qualified Code(s): I95.89 - Other hypotension Comment: resolved.. (5) Lower GI bleeding Code(s): K92.2 - GASTROINTESTINAL HEMORRHAGE, UNSPECIFIED Status: Chronic Comment: hb/hct stable. s/p colon mass resection. AM labs (6) ROMAINE (acute kidney injury) Code(s): N17.9 - ACUTE KIDNEY FAILURE, UNSPECIFIED Status: Acute Comment: Serum creatinine higher, consistant with ROMAINE + CKD. Seen by nephrology. (7) Chronic kidney disease Code(s): N18.9 - CHRONIC KIDNEY DISEASE, UNSPECIFIED Status: Chronic Qualifiers: Chronic kidney disease stage: on chronic dialysis Qualified Code(s): N18.6 - End stage renal disease; Z99.2 - Dependence on renal dialysis; Z99.2 - Dependence on renal dialysis; Z99.2 - Dependence on renal dialysis; Z99.2 - Dependence on renal dialysis Comment: HD tomorrow (8) Diabetes mellitus type 2 in nonobese Code(s): E11.9 - TYPE 2 DIABETES MELLITUS WITHOUT COMPLICATIONS Status: Chronic (9) Colonic mass Code(s): K63.9 - DISEASE OF INTESTINE, UNSPECIFIED Status: Acute Comment: resection 09/28. Follow up on path - Plan * . transfer to telemetry
[2017-09-30] MEDS: Piperacillin/Tazobactam 2.25 GM in Sodium Chloride 0.9% 100 ML IVPB SCH ×2 (11:45→18:06)
--- NOTE | 2017-09-30 12:01 | PRG ---
DATE OF SERVICE: 09/30/2017 SUBJECTIVE: Mr. Loo is postoperative day #2 from extended left hemicolectomy. Pathology is pendin g. The patient remains in the intensive care unit, but has been in stable condition since he was ext ubated yesterday morning. He currently has complaints of mild abdominal discomfort. He has tolerate d his clear liquid diet uneventfully with no nausea or vomiting. He has had both flatus and bowel mo vement. He has ambulated somewhat with walking team and physical therapy. PHYSICAL EXAMINATION: VITAL SIGNS: He is afebrile, pulse is 72, blood pressure is currently 123/83. Of note, he is curren tly undergoing hemodialysis. His oxygen saturation is 100% on 2 liters nasal cannula. LUNGS: Clear to auscultation. CARDIAC: Regular rate and rhythm. ABDOMEN: Entirely benign. Incisions are healing appropriately with Dermabond intact. There is mini mal palpable tenderness. Bowel sounds are present and normoactive. LABORATORY STUDIES: White blood cell count is down to 9.9, hemoglobin is 8.4, platelet count is 168. His chemistry profile reveals a somewhat low sodium and chloride levels. Glucose has been well con trolled. ASSESSMENT: The patient appears to be stable following colectomy for colon cancer. From a surgical standpoint, he is certainly stable to be transferred from the Intensive Care Unit. I will advance h is diet up to a full liquid diet today. He should still undergo physical therapy and walk regularly. From my standpoint, he will be stable for discharge by tomorrow I would anticipate. In regards to his recent hemodialysis and medical issues, he certainly may not be.
[2017-09-30] MEDS: HYDROcodone/Acetaminophen 7.5/325 mg Tablet PO PRN (14:45)
[2017-09-30] MEDS: Atorvastatin Calcium 40 MG TAB PO SCH (21:57)
[2017-10-01] MEDS: Piperacillin/Tazobactam 2.25 GM in Sodium Chloride 0.9% 100 ML IVPB SCH ×2 (01:14→06:00)
[2017-10-01] MEDS: HYDROcodone/Acetaminophen 7.5/325 mg Tablet PO PRN ×3 (03:44→20:40)
[2017-10-01 04:51] LABS: #Eosinphils 0.5 thou/uL (0.0-0.7); #Lymphocytes 1.1 thou/uL (1.20-3.40); #Monocytes 0.9 thou/uL (0.11-0.59); #Neutrophils 6.8 thou/uL (1.40-6.50); %Basophils 0.4 % (0.0-1.0); %Eosinophils 5.6 % (0.0-10.0); %Lymphocytes 11.9 % (21.0-51.0); %Monocytes 9.2 % (0.0-10.0); Hemoglobin 8.1 g/dL (14.0-18.0); Mean Corpuscular HGB CONC 34.5 g/dL (32.0-36.0); Mean Corpuscular Hemoglobin 30.4 pg (27.0-31.0); Mean Corpuscular Volume 88.2 fl (80.0-94.0); Mean Platelet Volume 8.4 fL (7.4-10.4); Platelet Count 166 thou/uL (130-400); RBC Distribution Width 14.1 % (11.5-14.5); Red Blood Cell (RBC) Count 2.65 mill/uL (4.70-6.10); White Blood Cell (WBC) Count 9.3 thou/uL (4.8-10.8)
[2017-10-01 05:01] LABS: Anion Gap 13 mmol/L (10-20); BUN (Urea Nitrogen) 13 mg/dL (8.4-25.7); Calc. Creatinine Clearance 27 mL/min (70-130); Carbon Dioxide 25 mmol/L (22-29); Chloride 96 mmol/L (98-107); Estimated GFR-MDRD 18; Glucose 110 mg/dL (70-105); Potassium 3.4 mmol/L (3.5-5.1); Sodium 131 mmol/L (136-145)
[2017-10-01] MEDS: NPH, Human Insulin Isophane 300 UNIT/3 ML VIAL SC SCH (08:31)
[2017-10-01] MEDS: Carvedilol 25 MG TAB PO SCH ×2 (08:34→16:45)
[2017-10-01] MEDS: NIFEdipine XL 60 MG TAB PO SCH (08:34)
[2017-10-01] MEDS: Heparin 5,000 UNITS/ML VIAL SC SCH ×2 (08:34→20:40)
[2017-10-01] MEDS: Famotidine 20 MG TAB PO SCH (08:35)
--- NOTE | 2017-10-01 08:40 | PRG ---
DATE OF SERVICE: 09/30/2017 SUBJECTIVE: The patient examined with no new complaints. PHYSICAL EXAMINATION: VITAL SIGNS: Blood pressure , pulse 74, respiratory rate 18. HEENT: Unremarkable with moist oral mucosa. CARDIOVASCULAR: First and second heart sounds were heard. RESPIRATORY: Clear to auscultation. DIGESTIVE: Benign. SKIN: No new gross rash. LYMPHATICS: No peripheral lymphadenopathy. IMPRESSION: 1. End-stage renal disease, hemodialysis dependent. 2. Colonic carcinoma, status post resection. 3. Hypervolemia responded well to ultrafiltration with dialysis. PLAN: 1. custodial outpatient dialysis placement in progress, cyanide case hardener on the case. 2. placement . 3. Further management depending on the clinical course.
--- NOTE | 2017-10-01 08:48 | PRG ---
DATE OF SERVICE: 10/01/2017 SUBJECTIVE: He feels better. PHYSICAL EXAMINATION: VITAL SIGNS: Temperature is 98.1, pulse 84, respirations 18, O2 sat 93%, blood pressure 130/71. HEENT: Unremarkable. NECK: No JVD. CHEST: Clear. CARDIAC: S1, S2 regular. ABDOMEN: Surgical wounds are well healed. EXTREMITIES: No edema. LABORATORY DATA: White blood cell count 9.3, hematocrit 23.3, platelet count 166. Sodium 131, potas sium 3.4, BUN 13, creatinine 4.1, glucose 110. ASSESSMENT: 1. Status post multiple episodes of respiratory failure. 2. Status post resection of colon cancer. 3. Acute on chronic renal failure. 4. Resolved encephalopathy. PLAN: I will go ahead and stop his NPH insulin since his blood sugars seem to be correcting. Main i ssue at this point is reconditioning. I will go ahead and stop his antibiotics.
--- NOTE | 2017-10-01 09:34 | PRG ---
DATE OF SERVICE: 10/01/2017 Mr. Loo is postoperative day #3 from his extended right hemicolectomy. He has been transferred to the telemetry floor and he has been hemodynamically stable while here. He has tolerated his full liq uid diet yesterday. He denies nausea or vomiting. He denies belching. He has had a few bowel movem ents and had one this morning. He notes some flatus, but not a bunch. He notes some mild abdominal discomfort that is well controlled with his [place]. PHYSICAL EXAMINATION: VITAL SIGNS: His temperature is 98.1, pulse 74, blood pressure is not recorded for today. LUNGS: Clear to auscultation. CARDIAC: Regular rate and rhythm. ABDOMEN: Mildly distended, soft, nontender. Laparoscopic incisions are all nicely healed. Bowel so unds are present, but there is some degree of tympany. ASSESSMENT: The patient is doing satisfactorily following his colon resection. He could still have some resolving ileus given the tympanitic bowel sounds. I would therefore recommend continuing full liquid diet at this time. He will need to increase his activity. Ongoing decisions are being made r egarding his dialysis. I am not certain if any outpatient dialysis has been arranged. His diet will need to be watched until he is discharged pending the progression of his intestinal function.
--- NOTE | 2017-10-01 10:52 | RAD ---
SUPINE ABDOMEN: History: Colon resection. Ileus. FINDINGS: Gas filled dilated loops of small bowel are noted in the midabdomen. There is a gas filled dilated vi scous in the midabdomen which appears to have Haustral markings suggesting a transverse colon. IMPRESSION: Evidence of gas filled small and large bowel which could suggest ileus. POS: KRISHNA
--- NOTE | 2017-10-01 11:04 | PDOC.PN ---
- Subjective Encounter Start Date: 10/01/17 Encounter Start Time: 08:35 Pt hungry, wants regular food. advanced to full liquid diet last evening. Will discuss with Dr De Los Santos, looks like he was okay with advancing Case discussed with Dr Martinez face to face. Expect pt to need HD detention, arrangements for outpatient HD in the works. no F/C, no CP or SOB, abd sore, but tolerable, no N/V/D/C 10 point ROs performed and neg for all systems except as per HPI - Objective Resuscitation Status: Resuscitation Status FULL:Full Resuscitation MAR Reviewed: Yes Vital Signs & Weight: Vital Signs (12 hours) Temp Pulse Resp BP Pulse Ox 10/01/17 07:39 98.1 F 74 18 93 L 10/01/17 06:55 98.1 F 74 18 138/71 93 L 10/01/17 04:59 99.0 F 77 20 119/58 L 91 L Weight Admit Weight 202 lb 14.4 oz Weight 203 lb 6.4 oz Most Recent Monitor Data Heart Rate from ECG 74 NIBP 134/70 NIBP BP-Mean 83 Respiration from ECG 15 SpO2 93 I&O: 09/30/17 10/01/17 10/02/17 06:59 06:59 06:59 Intake Total 4376 1040 Output Total 1145 245 Balance 3231 795 Result Diagrams: 10/01/17 04:13 10/01/17 04:13 Additional Labs: Accuchecks 10/01/17 09/30/17 09/30/17 05:53 21:26 18:25 POC Glucose 129 H 126 H 139 H 09/30/17 09/30/17 17:01 11:28 POC Glucose 53 L* 65 L Radiology Reviewed by me: Yes EKG Reviewed by me: Yes Phys Exam - Physical Examination Constitutional: NAD HEENT: PERRLA, moist MMs, sclera anicteric, oral pharynx no lesions Neck: no nodes, no JVD, supple, full ROM Respiratory: no wheezing, no rales, no rhonchi, clear to auscultation bilateral Cardiovascular: RRR, no significant murmur, no rub Gastrointestinal: soft, non-tender, no distention, positive bowel sounds incisions C/D/I Musculoskeletal: no edema, pulses present Neurological: non-focal, normal sensation, moves all 4 limbs Lymphatic: no nodes Psychiatric: normal affect, A&O x 3 Skin: no rash, normal turgor, cap refill <2 seconds Dx/Plan (1) Acute hypoxemic respiratory failure Code(s): J96.01 - ACUTE RESPIRATORY FAILURE WITH HYPOXIA Status: Resolved Comment: doing well on Nc, wean as tolerated (2) Metabolic encephalopathy Code(s): G93.41 - METABOLIC ENCEPHALOPATHY Status: Resolved (3) Anemia due to blood loss, acute Code(s): D62 - ACUTE POSTHEMORRHAGIC ANEMIA Status: Resolved Comment: due to above. follow post op partial colectomy (4) Hypotension Status: Resolved Qualifiers: Hypotension type: other hypotension type Qualified Code(s): I95.89 - Other hypotension Comment: resolved.. (5) Lower GI bleeding Code(s): K92.2 - GASTROINTESTINAL HEMORRHAGE, UNSPECIFIED Status: Chronic Comment: hb/hct stable. s/p colon mass resection. AM labs (6) ROMAINE (acute kidney injury) Code(s): N17.9 - ACUTE KIDNEY FAILURE, UNSPECIFIED Status: Acute Comment: Serum creatinine higher, consistant with ROMAINE + CKD. Seen by nephrology. (7) Chronic kidney disease Code(s): N18.9 - CHRONIC KIDNEY DISEASE, UNSPECIFIED Status: Chronic Qualifiers: Chronic kidney disease stage: on chronic dialysis Qualified Code(s): N18.6 - End stage renal disease; Z99.2 - Dependence on renal dialysis; Z99.2 - Dependence on renal dialysis; Z99.2 - Dependence on renal dialysis; Z99.2 - Dependence on renal dialysis Comment: HD tomorrow (8) Diabetes mellitus type 2 in nonobese Code(s): E11.9 - TYPE 2 DIABETES MELLITUS WITHOUT COMPLICATIONS Status: Chronic (9) Colonic mass Code(s): K63.9 - DISEASE OF INTESTINE, UNSPECIFIED Status: Acute Comment: resection 09/28. Follow up on path - Plan * . advacne to reg diet, await social cervices and outpatient HD to be arranged. Home in a couple of days hopefully
--- NOTE | 2017-10-01 19:13 | PRG ---
DATE OF SERVICE: 10/01/2017 SUBJECTIVE: The patient was seen and examined today with no new complaints and noted with the follow ing vital signs. OBJECTIVE: GENERAL: Afebrile with temperature 98.1, pulse 74, respiratory rate of 18, O2 saturation 95%, blood pressure 130/67. HEENT: Unremarkable with moist oral mucosa. Neck is supple. No conjunctival injection or icterus. CARDIOVASCULAR: First and second heart sounds were heard. RESPIRATORY: Clear to auscultation. DIGESTIVE: Revealed a benign abdomen. EXTREMITIES: No peripheral edema. SKIN: No new gross rash. IMPRESSION: End-stage renal disease, on hemodialysis. PLAN: The patient's outpatient dialysis placement work is in progress. Once patient is accepted by the outpatient dialysis unit, the patient will be due for discharge.
[2017-10-01] MEDS: Atorvastatin Calcium 40 MG TAB PO SCH (20:39)
[2017-10-02 06:25] LABS: Hemoglobin 7.6 g/dL (14.0-18.0)
[2017-10-02] MEDS ORDERED: READ PPD TEST SITE PO SCH (09:00)
--- NOTE | 2017-10-02 10:13 | PDOC.PN ---
- Subjective Encounter Start Date: 10/02/17 Encounter Start Time: 09:05 Pt seen in HD this morning. Pt sitting up in chair. VSS. Belly feels better, had a large BM last evening, no N/V, no CP, no SOb, no F/C liberty HD without problems 10 point ROS performed and neg for all systems except as above - Objective Resuscitation Status: Resuscitation Status FULL:Full Resuscitation MAR Reviewed: Yes Vital Signs & Weight: Vital Signs (12 hours) Temp Pulse Resp BP BP Pulse Ox 10/02/17 07:22 76 16 162/84 H 10/02/17 03:36 98.1 F 73 16 141/70 H 94 L Weight Admit Weight 202 lb 14.4 oz Weight 207 lb 11.2 oz Most Recent Monitor Data Heart Rate from ECG 74 NIBP 134/70 NIBP BP-Mean 83 Respiration from ECG 15 SpO2 93 I&O: 10/01/17 10/02/17 10/03/17 06:59 06:59 06:59 Intake Total 1040 480 Output Total 245 700 Balance 795 -220 Result Diagrams: 10/02/17 05:48 10/01/17 04:13 Additional Labs: Accuchecks 10/02/17 10/01/17 10/01/17 03:44 21:22 17:29 POC Glucose 118 H 167 H 114 H 10/01/17 11:41 POC Glucose 105 Phys Exam - Physical Examination Constitutional: NAD HEENT: PERRLA, moist MMs, sclera anicteric, oral pharynx no lesions Neck: no nodes, no JVD, supple, full ROM Respiratory: no wheezing, no rales, no rhonchi, clear to auscultation bilateral Cardiovascular: RRR, no significant murmur, no rub Gastrointestinal: soft, non-tender, positive bowel sounds distended, but not tense Musculoskeletal: no edema, pulses present Neurological: non-focal, normal sensation, moves all 4 limbs Lymphatic: no nodes Psychiatric: normal affect, A&O x 3 Skin: no rash, normal turgor, cap refill <2 seconds Dx/Plan (1) Lower GI bleeding Code(s): K92.2 - GASTROINTESTINAL HEMORRHAGE, UNSPECIFIED Status: Chronic Comment: hb/hct trending down. 7.3 today, will check this afternoon post HD. may be dilutional from fluid retention (2) ROMAINE (acute kidney injury) Code(s): N17.9 - ACUTE KIDNEY FAILURE, UNSPECIFIED Status: Acute Comment: ROMAINE + CKD. Seen by nephrology. On HD, expected to be longer term. (3) Chronic kidney disease Code(s): N18.9 - CHRONIC KIDNEY DISEASE, UNSPECIFIED Status: Chronic Qualifiers: Chronic kidney disease stage: on chronic dialysis Qualified Code(s): N18.6 - End stage renal disease; Z99.2 - Dependence on renal dialysis; Z99.2 - Dependence on renal dialysis; Z99.2 - Dependence on renal dialysis; Z99.2 - Dependence on renal dialysis Comment: HD tomorrow (4) Diabetes mellitus type 2 in nonobese Code(s): E11.9 - TYPE 2 DIABETES MELLITUS WITHOUT COMPLICATIONS Status: Chronic (5) Colonic mass Code(s): K63.9 - DISEASE OF INTESTINE, UNSPECIFIED Status: Acute Comment: resection 09/28. Follow up on path (6) Anemia due to blood loss, acute Code(s): D62 - ACUTE POSTHEMORRHAGIC ANEMIA Status: Resolved Comment: due to above. follow post op partial colectomy (7) Metabolic encephalopathy Code(s): G93.41 - METABOLIC ENCEPHALOPATHY Status: Resolved (8) Acute hypoxemic respiratory failure Code(s): J96.01 - ACUTE RESPIRATORY FAILURE WITH HYPOXIA Status: Resolved Comment: doing well on Nc, wean as tolerated (9) Hypotension Status: Resolved Qualifiers: Hypotension type: other hypotension type Qualified Code(s): I95.89 - Other hypotension Comment: resolved.. (10) Ileus following gastrointestinal surgery Code(s): K91.30 - POSTPROC INTESTINAL OBST, UNSP TO PARTIAL VERSUS COMPLETE Status: Acute Comment: feesl better today. Surgery following. (11) Adenocarcinoma, colon Code(s): C18.9 - MALIGNANT NEOPLASM OF COLON, UNSPECIFIED Status: Acute Comment: LN negative, adenoCA on path. margins negative. Onc consult needed? - Plan cont current plan of care, PT/OT, long term care social worker, out of bed/ambulate * .
[2017-10-02] MEDS: Carvedilol 25 MG TAB PO SCH ×2 (12:30→17:53)
[2017-10-02] MEDS: Famotidine 20 MG TAB PO SCH (12:51)
[2017-10-02] MEDS: NIFEdipine XL 60 MG TAB PO SCH (12:51)
[2017-10-02] MEDS: Heparin 5,000 UNITS/ML VIAL SC SCH (12:51)
--- NOTE | 2017-10-02 12:52 | PRG ---
DATE OF SERVICE: 10/02/2017 SUBJECTIVE: This morning, he is awake, alert, responsive. He is having abdominal pain and being edyta lyzed. PHYSICAL EXAMINATION: VITAL SIGNS: Sats are 94% on room air, respirations 16, temperature 98, and blood pressure 160/84. CHEST: Reveals no wheezing. CARDIAC: Normal S1, S2. ABDOMEN: Soft, no masses. IMPRESSION: Status post colon resection with ongoing abdominal pain, renal failure, respiratory fail ure, and encephalopathy. PLAN: Continue aggressive PT and supportive care. Will follow.
[2017-10-02] MEDS: HYDROcodone/Acetaminophen 7.5/325 mg Tablet PO PRN ×2 (12:54→20:31)
[2017-10-02 15:44] LABS: Hemoglobin 8.2 g/dL (14.0-18.0)
[2017-10-02] MEDS: HumaLOG 300 UNITS/3 ML VIAL SC PRN (17:53)
--- NOTE | 2017-10-02 20:23 | PRG ---
DATE OF SERVICE: 10/02/2017 SUBJECTIVE: Dmaon Loo is doing well. He has been moved to telemetry. He is undergoing dialysis . The patient reports bloody bowel movement today, one occasion. OBJECTIVE: LUNGS: Clear to auscultation. CARDIAC: Regular rate and rhythm without murmur or gallop. ABDOMEN: Distended, tympanitic. GENITOURINARY: No peritoneal sign. Surgical wounds look good. VITAL SIGNS: 98 degrees, heart rate 82, blood pressure 201/97, and respiratory 18. LABORATORY DATA: Hemoglobin this morning is 7.6, this afternoon 8.2. ASSESSMENT AND PLAN: Bloody movement after bowel movement. Patient's abdomen continues to be disten ded, although he has passed a bloody bowel movements and some flatus. At this point, we would check his CBC in the morning. I do not think, there is evidence of ongoing bleeding, but we will follow wi th you. Continue clear liquids until his abdominal distention improves.
[2017-10-02] MEDS: Atorvastatin Calcium 40 MG TAB PO SCH (20:27)
--- NOTE | 2017-10-02 20:46 | PRG ---
DATE OF SERVICE: 10/02/2017 SUBJECTIVE: Patient was seen and examined with no new complaint. Noted with the following vital sig ns. PHYSICAL EXAMINATION: VITAL SIGNS: Afebrile with temperature 98.9, pulse 89, respirations 18, blood pressure 201/97. HEENT: Unremarkable with moist oral mucosa. Neck was supple. No conjunctival injection or icterus. CARDIOVASCULAR SYSTEM: First and second heart sounds were heard. RESPIRATORY SYSTEM: Clear to auscultation. DIGESTIVE SYSTEM: Revealed a benign abdomen with positive bowel sounds. EXTREMITIES: No peripheral edema. SKIN: No new gross rash. LYMPHATICS: No peripheral lymphadenopathy. IMPRESSION: 1. End-stage renal disease, hemodialysis dependent. 2. Hypertension, suboptimally controlled. 3. Colonic carcinoma, status post resection. PLAN: 1. Adjust antihypertensive medications to optimize hemodynamics. 2. Outpatient dialysis placement in progress. 3. Once patient is accepted to any outpatient dialysis facility, from the renal standpoint, the jonah ent is good for discharge. 4. Further management will be dependent on the clinical course.
[2017-10-03] MEDS: HYDROcodone/Acetaminophen 7.5/325 mg Tablet PO PRN ×3 (05:08→20:22)
[2017-10-03 06:02] LABS: #Eosinphils 0.4 thou/uL (0.0-0.7); #Monocytes 0.7 thou/uL (0.11-0.59); #Neutrophils 5.4 thou/uL (1.40-6.50); %Basophils 0.3 % (0.0-1.0); %Eosinophils 5.7 % (0.0-10.0); %Lymphocytes 13.4 % (21.0-51.0); %Monocytes 9.6 % (0.0-10.0); Hemoglobin 7.8 g/dL (14.0-18.0); Mean Corpuscular HGB CONC 32.4 g/dL (32.0-36.0); Mean Corpuscular Hemoglobin 28.8 pg (27.0-31.0); Mean Corpuscular Volume 88.9 fl (80.0-94.0); Mean Platelet Volume 8.2 fL (7.4-10.4); Platelet Count 228 thou/uL (130-400); Red Blood Cell (RBC) Count 2.72 mill/uL (4.70-6.10); White Blood Cell (WBC) Count 7.6 thou/uL (4.8-10.8)
[2017-10-03 06:14] LABS: Anion Gap 14 mmol/L (10-20); BUN (Urea Nitrogen) 10 mg/dL (8.4-25.7); Calc. Creatinine Clearance 33 mL/min (70-130); Calcium 8.3 mg/dL (7.8-10.44); Carbon Dioxide 27 mmol/L (22-29); Chloride 93 mmol/L (98-107); Estimated GFR-MDRD 22; Glucose 126 mg/dL (70-105); Potassium 3.6 mmol/L (3.5-5.1); Sodium 130 mmol/L (136-145)
[2017-10-03] MEDS: NIFEdipine XL 60 MG TAB PO SCH (08:09)
[2017-10-03] MEDS: Carvedilol 25 MG TAB PO SCH ×2 (08:10→17:28)
[2017-10-03] MEDS: Famotidine 20 MG TAB PO SCH (08:10)
--- NOTE | 2017-10-03 11:01 | PDOC.PN ---
- Subjective Encounter Start Date: 10/03/17 Encounter Start Time: 09:00 Pt feeling okay. had a bloody BM last night, none today. No abd pain, just feels 'full'. No nausea, tolerating clear liquid diet Deneis CP or sOB, no F/c, no cough or sputum production 10 point ROS performed and neg for all except as per HPI H/H yesterday am 7.X, up to 8.2 post HD, down to 7.8 today. repeat this afternoon - Objective Resuscitation Status: Resuscitation Status FULL:Full Resuscitation MAR Reviewed: Yes Vital Signs & Weight: Vital Signs (12 hours) Temp Pulse Resp BP BP Pulse Ox 10/03/17 08:09 78 182/88 H 10/03/17 07:15 97.8 F 78 16 182/88 H 94 L 10/03/17 05:07 169/85 H 10/03/17 04:00 97.8 F 73 16 175/88 H 94 L Weight Admit Weight 202 lb 14.4 oz Weight 211 lb 8 oz Most Recent Monitor Data Heart Rate from ECG 74 NIBP 134/70 NIBP BP-Mean 83 Respiration from ECG 15 SpO2 93 I&O: 10/02/17 10/03/17 10/04/17 06:59 06:59 06:59 Intake Total 480 1008 Output Total 700 4600 Balance -220 -3592 Result Diagrams: 10/03/17 05:13 10/03/17 05:13 Additional Labs: Accuchecks 10/03/17 10/02/17 10/02/17 05:47 20:07 17:04 POC Glucose 133 H 111 H 210 H 10/02/17 12:50 POC Glucose 97 Radiology Reviewed by me: Yes EKG Reviewed by me: Yes Phys Exam - Physical Examination Constitutional: NAD HEENT: PERRLA, moist MMs, sclera anicteric, oral pharynx no lesions Neck: no nodes, no JVD, supple, full ROM Respiratory: no wheezing, no rales, no rhonchi, clear to auscultation bilateral Cardiovascular: RRR, no significant murmur, no rub Gastrointestinal: non-tender, positive bowel sounds tense, distended and tympanitic Musculoskeletal: no edema, pulses present Neurological: non-focal, normal sensation, moves all 4 limbs Lymphatic: no nodes Psychiatric: normal affect, A&O x 3 Skin: no rash, normal turgor, cap refill <2 seconds Dx/Plan (1) Lower GI bleeding Code(s): K92.2 - GASTROINTESTINAL HEMORRHAGE, UNSPECIFIED Status: Chronic Comment: hb/hct trending down. 7.3 12/16 AM, 8.2 post HD, 7.8 today. no evidenc eof significant new bleeding. recheck h/H this afternoon. (2) ROMAINE (acute kidney injury) Code(s): N17.9 - ACUTE KIDNEY FAILURE, UNSPECIFIED Status: Acute Comment: ROMAINE + CKD. Seen by nephrology. On HD, expected to be longer term. (3) Chronic kidney disease Code(s): N18.9 - CHRONIC KIDNEY DISEASE, UNSPECIFIED Status: Chronic Qualifiers: Chronic kidney disease stage: on chronic dialysis Qualified Code(s): N18.6 - End stage renal disease; Z99.2 - Dependence on renal dialysis; Z99.2 - Dependence on renal dialysis; Z99.2 - Dependence on renal dialysis; Z99.2 - Dependence on renal dialysis Comment: HD tomorrow (4) Diabetes mellitus type 2 in nonobese Code(s): E11.9 - TYPE 2 DIABETES MELLITUS WITHOUT COMPLICATIONS Status: Chronic (5) Colonic mass Code(s): K63.9 - DISEASE OF INTESTINE, UNSPECIFIED Status: Acute Comment: resection 09/28. Follow up on path (6) Anemia due to blood loss, acute Code(s): D62 - ACUTE POSTHEMORRHAGIC ANEMIA Status: Resolved Comment: due to above. follow post op partial colectomy (7) Metabolic encephalopathy Code(s): G93.41 - METABOLIC ENCEPHALOPATHY Status: Resolved (8) Acute hypoxemic respiratory failure Code(s): J96.01 - ACUTE RESPIRATORY FAILURE WITH HYPOXIA Status: Resolved Comment: doing well on Nc, wean as tolerated (9) Hypotension Status: Resolved Qualifiers: Hypotension type: other hypotension type Qualified Code(s): I95.89 - Other hypotension Comment: resolved.. (10) Ileus following gastrointestinal surgery Code(s): K91.30 - POSTPROC INTESTINAL OBST, UNSP TO PARTIAL VERSUS COMPLETE Status: Acute Comment: feesl better today. Surgery following. (11) Adenocarcinoma, colon Code(s): C18.9 - MALIGNANT NEOPLASM OF COLON, UNSPECIFIED Status: Acute Comment: LN negative, adenoCA on path. margins negative. Onc consult needed? - Plan cont current plan of care, PT/OT, out of bed/ambulate * .
[2017-10-03] MEDS ORDERED: Heparin 1,000 UNITS/ML VIAL ONE (11:11)
[2017-10-03] MEDS: HumaLOG 300 UNITS/3 ML VIAL SC PRN (11:40)
--- NOTE | 2017-10-03 13:43 | PRG ---
DATE OF SERVICE: 10/03/2017 SUBJECTIVE: Bryce Loo is doing well today. He has had a bowel movement and passed flatus. He i s not having any more bloody stools. His hemoglobin remained stable at 7.8-8.2. OBJECTIVE: LUNGS: Clear to auscultation. CARDIAC: Regular rate and rhythm without murmur or gallop. ABDOMEN: Soft, slightly distended, and tympanitic. He is on clear liquids. We recommended continuing clear liquids for now. He had a bloody bowel move ment with one of his first bowel movements. I am not concerned about this. There are no signs of on going bleeding. I do not think he needs frequent hemoglobins. We would continue clear liquids until his tympany and abdominal distention resolved.
--- NOTE | 2017-10-03 14:34 | PRG ---
DATE OF SERVICE: 10/03/2017 SUBJECTIVE: He was dialyzed yesterday. Today, he is weak and deconditioned with no shortness of eunice ath. OBJECTIVE: VITAL SIGNS: Sats are 93% on room air, respirations 18, blood pressure 182/80, respiratory rate 18. CHEST: Decreased breath sounds, no wheezing. CARDIAC: Normal S1, S2. ABDOMEN: Soft, no masses. LABORATORY DATA: Creatinine 3.4. White count 7,000, hemoglobin and hematocrit 7 and 24, platelet co unt is normal. IMPRESSION: Respiratory failure, renal failure, diabetes, and encephalopathy. PLAN: Continue PT, supportive care, and minimize sedation, we will follow.
[2017-10-03 15:22] LABS: Hemoglobin 7.2 g/dL (14.0-18.0)
[2017-10-03] MEDS: Atorvastatin Calcium 40 MG TAB PO SCH (20:22)
[2017-10-03] MEDS: Epoetin (ESRD) 20,000 UNITS/ML SC SCH (22:27)
[2017-10-04] MEDS: HYDROcodone/Acetaminophen 7.5/325 mg Tablet PO PRN ×2 (01:21→05:57)
[2017-10-04 05:26] LABS: Hemoglobin 7.3 g/dL (14.0-18.0)
--- NOTE | 2017-10-04 07:09 | PRG ---
DATE OF SERVICE: 10/03/2017 SUBJECTIVE: The patient was seen and examined with no new complaints. Noted with the following gordo l signs. PHYSICAL EXAMINATION: VITAL SIGNS: Afebrile, temperature 97.9, pulse 66, respiratory rate of 16, O2 sat of 97%. HEENT: Unremarkable. Moist oral mucosa. No conjunctival injection or icterus. NECK: Supple. CARDIOVASCULAR SYSTEM: First and second heart sounds were heard. RESPIRATORY SYSTEM: Clear to auscultation. DIGESTIVE SYSTEM: Revealed a benign abdomen with positive bowel sounds. EXTREMITIES: No peripheral edema. SKIN: No new gross rash. LYMPHATICS: No peripheral lymphadenopathy. IMPRESSION: 1. End-stage renal disease, hemodialysis dependent. 2. Anemia, likely anemia of chronic kidney disease, compounded by possible blood loss anemia. 3. Hypertension. PLAN: 1. Outpatient dialysis placement workup in progress. 2. Once this is secured, the patient is likely to be discharged. 3. May consider possible blood transfusion during dialysis if the patient's anemia worsens. 4. Will be initiated on agents. 5. Further management to be dependent on the clinical course.
--- NOTE | 2017-10-04 07:55 | PRG ---
DATE OF SERVICE: 10/04/2017 He is doing well, has no acute complaints. PHYSICAL EXAMINATION: VITAL SIGNS: Temperature is 98.0, pulse 69, respirations 16, O2 sat 92%, blood pressure 162/78. HEENT: Unremarkable. NECK: No JVD. CHEST: Clear to auscultation without wheezing. CARDIAC: S1 and S2 regular. ABDOMEN: Soft, nontender. Surgical scar is healing well. EXTREMITIES: No edema. LABORATORY DATA: Hemoglobin 7.3, hematocrit 22.3. ASSESSMENT: 1. Status post colon cancer resection. 2. Status post multiple episodes of respiratory failure. 3. Acute on chronic renal failure. 4. Improved encephalopathy. PLAN: The patient appears to be doing very well from a pulmonary standpoint. I do not really have a nything further to add to the current care. Pulmonary will sign off. Please reconsult if further as sistance is needed.
[2017-10-04] MEDS: hydrALAZINE 20 MG/ML VIAL SLOW IVP PRN (08:23)
[2017-10-04] MEDS: Carvedilol 25 MG TAB PO SCH ×2 (08:28→16:53)
[2017-10-04] MEDS: Famotidine 20 MG TAB PO SCH (08:28)
[2017-10-04] MEDS: NIFEdipine XL 60 MG TAB PO SCH (08:28)
[2017-10-04 09:17] LABS: #Eosinphils 0.5 thou/uL (0.0-0.7); #Lymphocytes 1.3 thou/uL (1.20-3.40); #Monocytes 0.8 thou/uL (0.11-0.59); #Neutrophils 6.9 thou/uL (1.40-6.50); %Basophils 0.2 % (0.0-1.0); %Eosinophils 5.4 % (0.0-10.0); %Lymphocytes 13.7 % (21.0-51.0); %Neutrophils 72.8 % (42.0-75.0); Hemoglobin 8.8 g/dL (14.0-18.0); Mean Corpuscular HGB CONC 32.5 g/dL (32.0-36.0); Mean Corpuscular Hemoglobin 28.4 pg (27.0-31.0); Mean Corpuscular Volume 87.4 fl (80.0-94.0); Mean Platelet Volume 7.2 fL (7.4-10.4); Platelet Count 287 thou/uL (130-400); RBC Distribution Width 13.8 % (11.5-14.5); Red Blood Cell (RBC) Count 3.11 mill/uL (4.70-6.10); White Blood Cell (WBC) Count 9.4 thou/uL (4.8-10.8)
[2017-10-04 09:21] LABS: Anion Gap 16 mmol/L (10-20); BUN (Urea Nitrogen) 13 mg/dL (8.4-25.7); Calc. Creatinine Clearance 27 mL/min (70-130); Calcium 9.1 mg/dL (7.8-10.44); Carbon Dioxide 26 mmol/L (22-29); Chloride 89 mmol/L (98-107); Estimated GFR-MDRD 18; Glucose 122 mg/dL (70-105); Potassium 3.5 mmol/L (3.5-5.1); Sodium 127 mmol/L (136-145)
[2017-10-04] MEDS: Sodium Chloride 0.9% 1,000 ML IV SCH (10:51)
--- NOTE | 2017-10-04 12:19 | PRG ---
DATE OF SERVICE: 10/04/2017 SUBJECTIVE: Mr. Loo is postoperative day #6 from a laparoscopic hand assisted left hemicolectomy f or colon cancer. His cancer is T3 N0. Mr. Loo has a series of other medical problems including se sharlene hypertension, end-stage renal disease for which he is undergoing hemodialysis. Dr. Pravin dixon ed a cuffed left femoral catheter at the time of the colon resection. From what I can gather dialysi s is proceeding uneventfully. Mr. Loo also has a long history of noncompliance and polysubstance drug abuse. His activity is min imal and is only that, which occurs with the walking team and physical therapy. He has been on clear liquid diet for the past few days, because of some abdominal distention and tympanitic bowel sounds. The etiology of this is uncertain. He has been having bowel movements and is currently having diar ira. PHYSICAL EXAMINATION: VITAL SIGNS: He is afebrile with a temperature of 98.5. He has never been febrile postoperatively. Pulse is 85, blood pressure is 200/105 this morning. He is on multiple blood pressure medications. LUNGS: Clear to auscultation anteriorly. CARDIAC: Regular rate and rhythm. ABDOMEN: Mildly to moderately distended. There are hypoactive bowel sounds. There is no focal tend erness. Incisions are healed nicely with no evidence of infection. LABORATORY STUDIES: White blood cell count today is 9.4 with hemoglobin of 8.8. Differential is unr emarkable. Chemistry profile reveals electrolyte abnormalities with a low sodium and chloride level. His sodium is down to 127 from 130 yesterday. His chloride is down to 89 from 93 yesterday. Creat inine remains elevated at 4.1. ASSESSMENT AND PLAN: Patient with some degree of postoperative ileus versus obstructive process. X- ray shows some dilated bowel, but it is difficult to tell what is what. I am uncertain if this is an ileus perhaps related to his variety of medical problems or the narcotics that he is taking currentl y. It could also be related to his electrolyte abnormalities. I will start him on a low volume sali ne infusion to help correct his electrolytes. Hopefully, his skiver hand will be able to help corre ct this with dialysis as well. I will stop all narcotics today and will use Tylenol as necessary for discomfort. He never seems to be in any significant pain and finally, I will obtain a Gastrografin small bowel follow through today. If this goes through uneventfully and has several bowel movements and he had to be stable to advance his diet. Hopefully, these measures to address any potential etio logy of an ileus will lead to resumption of normal bowel function.
--- NOTE | 2017-10-04 13:54 | RAD ---
ABDOMEN 1 VIEW: Date: 10/04/17 HISTORY: Abdominal pain. Ileus versus obstruction. COMPARISON: 10/01/17. FINDINGS: Gaseous distention of the colon is similar in appearance since the prior study. Small bowel gas patte rn is nonspecific. Large caliber vascular sheath is unchanged in position. Metallic clips overlie the abdomen. IMPRESSION: Mild gaseous distention of the colon, stable. No significant abnormalities are demonstrated. POS: [facility]
--- NOTE | 2017-10-04 14:02 | PDOC.PN ---
- Subjective Encounter Start Date: 10/04/17 Encounter Start Time: 14:00 no acute events, no further BRBPR or hematochezia, no melena. NO dizziness, no hypotnesion Deneis F/C, no CP or sOB, no chills or rigors, no abd pain. 10 point ROs performed and neg for all systems except asper hPI. Case discussed with Dr De Los Santos - Objective Resuscitation Status: Resuscitation Status FULL:Full Resuscitation MAR Reviewed: Yes Vital Signs & Weight: Vital Signs (12 hours) Temp Pulse Resp BP BP BP Pulse Ox 10/04/17 11:15 98.8 F 63 20 158/83 H 96 10/04/17 09:05 165/80 H 10/04/17 08:28 200/105 H 10/04/17 08:23 200/105 H 10/04/17 08:20 98.5 F 85 18 96 10/04/17 05:14 93 L 10/04/17 04:00 98.0 F 69 16 162/78 H 92 L Weight Admit Weight 202 lb 14.4 oz Weight 209 lb 8 oz Most Recent Monitor Data Heart Rate from ECG 74 NIBP 134/70 NIBP BP-Mean 83 Respiration from ECG 15 SpO2 93 I&O: 10/03/17 10/04/17 10/05/17 06:59 06:59 06:59 Intake Total 1008 3724 Output Total 4600 1400 Balance -3592 2324 Result Diagrams: 10/04/17 08:58 10/04/17 08:58 Additional Labs: Accuchecks 10/04/17 10/04/17 10/03/17 13:53 06:01 20:12 POC Glucose 149 H 131 H 226 H 10/03/17 16:31 POC Glucose 125 H Radiology Reviewed by me: Yes Phys Exam - Physical Examination Constitutional: NAD HEENT: PERRLA, moist MMs, sclera anicteric, oral pharynx no lesions Neck: no nodes, no JVD, supple, full ROM Respiratory: no wheezing, no rales, no rhonchi, clear to auscultation bilateral Cardiovascular: RRR, no significant murmur, no rub Gastrointestinal: soft, non-tender, no distention, positive bowel sounds bowel sounds very hypoactive Musculoskeletal: pulses present, edema present Neurological: non-focal, normal sensation, moves all 4 limbs Lymphatic: no nodes Psychiatric: normal affect, A&O x 3 Skin: no rash, normal turgor, cap refill <2 seconds Dx/Plan (1) Lower GI bleeding Code(s): K92.2 - GASTROINTESTINAL HEMORRHAGE, UNSPECIFIED Status: Chronic Comment: hb/hct trending down. 7.3 12/16 AM, 8.2 post HD, 7.8 today. no evidence of significant new bleeding. H/H 7.3 thi smorning, repeat 4 hour rodríguez, no trnasfusion, at 8.5. watch (2) ROMAINE (acute kidney injury) Code(s): N17.9 - ACUTE KIDNEY FAILURE, UNSPECIFIED Status: Acute Comment: ROMAINE + CKD. Seen by nephrology. On HD, expected to be longer term. (3) Chronic kidney disease Code(s): N18.9 - CHRONIC KIDNEY DISEASE, UNSPECIFIED Status: Chronic Qualifiers: Chronic kidney disease stage: on chronic dialysis Qualified Code(s): N18.6 - End stage renal disease; Z99.2 - Dependence on renal dialysis; Z99.2 - Dependence on renal dialysis; Z99.2 - Dependence on renal dialysis; Z99.2 - Dependence on renal dialysis Comment: HD tomorrow (4) Diabetes mellitus type 2 in nonobese Code(s): E11.9 - TYPE 2 DIABETES MELLITUS WITHOUT COMPLICATIONS Status: Chronic (5) Colonic mass Code(s): K63.9 - DISEASE OF INTESTINE, UNSPECIFIED Status: Acute Comment: resection 09/28. Adeno CA on path, LN negative, margins of resection negative (6) Anemia due to blood loss, acute Code(s): D62 - ACUTE POSTHEMORRHAGIC ANEMIA Status: Resolved Comment: due to above. follow post op partial colectomy (7) Metabolic encephalopathy Code(s): G93.41 - METABOLIC ENCEPHALOPATHY Status: Resolved (8) Acute hypoxemic respiratory failure Code(s): J96.01 - ACUTE RESPIRATORY FAILURE WITH HYPOXIA Status: Resolved Comment: doing well on Nc, wean as tolerated (9) Hypotension Status: Resolved Qualifiers: Hypotension type: other hypotension type Qualified Code(s): I95.89 - Other hypotension Comment: resolved.. (10) Ileus following gastrointestinal surgery Code(s): K91.30 - POSTPROC INTESTINAL OBST, UNSP TO PARTIAL VERSUS COMPLETE Status: Acute Comment: feels abou the same to slightly better today. Surgery following. SBFT pending report, looks to have contrast thorugh small bowel, not much in colon (11) Adenocarcinoma, colon Code(s): C18.9 - MALIGNANT NEOPLASM OF COLON, UNSPECIFIED Status: Acute Comment: LN negative, adenoCA on path. margins negative. Onc consult needed? - Plan cont current plan of care * .
--- NOTE | 2017-10-04 16:45 | RAD ---
SMALL BOWEL SERIES: Date: 10/04/17 HISTORY: 57-year-old male with evidence for ileus. TECHNIQUE: Gastrografin administered PO. Hvac Tech view, 30 minute post Gastrografin view, and 1 hour post Gastrogra fin view obtained. FINDINGS: Hvac Tech view demonstrates a large amount of gas in portions of the right colon. The contrast material t raverses nondilated small bowel loops rapidly and reaches the distended gas-filled right colon by 30 minutes, and reaches the rectum by 1 hour. IMPRESSION: 1. Rapid small bowel transit time. 2. No small bowel obstruction. POS: [facility]
[2017-10-04] MEDS: Acetaminophen 500 MG TAB PO PRN (16:53)
[2017-10-04] MEDS: HumaLOG 300 UNITS/3 ML VIAL SC PRN (18:13)
[2017-10-04] MEDS: Atorvastatin Calcium 40 MG TAB PO SCH (20:59)
[2017-10-05 05:19] LABS: #Eosinphils 0.4 thou/uL (0.0-0.7); #Lymphocytes 1.1 thou/uL (1.20-3.40); #Monocytes 0.7 thou/uL (0.11-0.59); #Neutrophils 6.1 thou/uL (1.40-6.50); %Basophils 0.2 % (0.0-1.0); %Eosinophils 4.5 % (0.0-10.0); %Lymphocytes 13.6 % (21.0-51.0); %Monocytes 8.3 % (0.0-10.0); %Neutrophils 73.3 % (42.0-75.0); Mean Corpuscular HGB CONC 32.8 g/dL (32.0-36.0); Mean Corpuscular Hemoglobin 28.5 pg (27.0-31.0); Mean Corpuscular Volume 86.9 fl (80.0-94.0); Mean Platelet Volume 7.6 fL (7.4-10.4); Platelet Count 276 thou/uL (130-400); RBC Distribution Width 13.9 % (11.5-14.5); Red Blood Cell (RBC) Count 2.81 mill/uL (4.70-6.10); White Blood Cell (WBC) Count 8.4 thou/uL (4.8-10.8)
[2017-10-05 05:25] LABS: Anion Gap 14 mmol/L (10-20); BUN (Urea Nitrogen) 18 mg/dL (8.4-25.7); Calc. Creatinine Clearance 23 mL/min (70-130); Calcium 8.8 mg/dL (7.8-10.44); Carbon Dioxide 25 mmol/L (22-29); Chloride 95 mmol/L (98-107); Estimated GFR-MDRD 15; Glucose 144 mg/dL (70-105); Magnesium 1.5 mg/dL (1.6-2.6); Potassium 3.2 mmol/L (3.5-5.1); Sodium 131 mmol/L (136-145)
[2017-10-05] MEDS: Sodium Chloride 0.9% 1,000 ML IV SCH (06:06)
--- NOTE | 2017-10-05 11:15 | PDOC.PN ---
- Subjective Encounter Start Date: 10/05/17 Encounter Start Time: 09:15 Pt seen on HD machince today. Very sleep, but arusable. Belly ok, no nausea at present, denied further GI bleeding. No CP, no SOb, no N/V/D/C, no CP, no F/C 10 point ROS performed and neg for all except as epr hPI discussed with CM - pt has dialysis chair starting tomorrow. Belly still being evaluated by surgery - Objective Resuscitation Status: Resuscitation Status FULL:Full Resuscitation MAR Reviewed: Yes Vital Signs & Weight: Vital Signs (12 hours) Temp Pulse Resp BP Pulse Ox 10/05/17 04:20 94 L 10/05/17 04:00 99.7 F H 83 18 168/78 H 94 L 10/05/17 03:48 96 Weight Admit Weight 202 lb 14.4 oz Weight 210 lb 14.4 oz Most Recent Monitor Data Heart Rate from ECG 74 NIBP 134/70 NIBP BP-Mean 83 Respiration from ECG 15 SpO2 93 I&O: 10/04/17 10/05/17 10/06/17 06:59 06:59 06:59 Intake Total 3724 1971 Output Total 1400 575 Balance 2324 1396 Result Diagrams: 10/05/17 04:16 10/05/17 04:16 Additional Labs: Accuchecks 10/05/17 10/04/17 10/04/17 06:13 20:22 17:23 POC Glucose 122 H 163 H 191 H 10/04/17 13:53 POC Glucose 149 H EKG Reviewed by me: Yes Phys Exam - Physical Examination Constitutional: NAD HEENT: PERRLA, moist MMs, sclera anicteric, oral pharynx no lesions Neck: no nodes, no JVD, supple, full ROM Respiratory: no wheezing, no rales, no rhonchi, clear to auscultation bilateral Cardiovascular: RRR, no significant murmur, no rub Gastrointestinal: soft, non-tender, no distention, positive bowel sounds more BS today than previously. Musculoskeletal: pulses present, edema present Neurological: non-focal, normal sensation, moves all 4 limbs Lymphatic: no nodes Psychiatric: normal affect, A&O x 3 Deviation from normal: somnolent, but arousable Skin: no rash, normal turgor, cap refill <2 seconds Dx/Plan (1) Lower GI bleeding Code(s): K92.2 - GASTROINTESTINAL HEMORRHAGE, UNSPECIFIED Status: Chronic Comment: H/H 7.3 up to 8.8 10/04 without intervention, 8.0 today. no signs of further bleeding, surgery following (2) ROMAINE (acute kidney injury) Code(s): N17.9 - ACUTE KIDNEY FAILURE, UNSPECIFIED Status: Acute Comment: ROMAINE + CKD. Seen by nephrology. On HD, expected to be longer term. (3) Chronic kidney disease Code(s): N18.9 - CHRONIC KIDNEY DISEASE, UNSPECIFIED Status: Chronic Qualifiers: Chronic kidney disease stage: on chronic dialysis Qualified Code(s): N18.6 - End stage renal disease; Z99.2 - Dependence on renal dialysis; Z99.2 - Dependence on renal dialysis; Z99.2 - Dependence on renal dialysis; Z99.2 - Dependence on renal dialysis Comment: HD tomorrow (4) Diabetes mellitus type 2 in nonobese Code(s): E11.9 - TYPE 2 DIABETES MELLITUS WITHOUT COMPLICATIONS Status: Chronic (5) Colonic mass Code(s): K63.9 - DISEASE OF INTESTINE, UNSPECIFIED Status: Acute Comment: resection 09/28. Adeno CA on path, LN negative, margins of resection negative (6) Anemia due to blood loss, acute Code(s): D62 - ACUTE POSTHEMORRHAGIC ANEMIA Status: Resolved Comment: due to above. follow post op partial colectomy (7) Metabolic encephalopathy Code(s): G93.41 - METABOLIC ENCEPHALOPATHY Status: Resolved (8) Acute hypoxemic respiratory failure Code(s): J96.01 - ACUTE RESPIRATORY FAILURE WITH HYPOXIA Status: Resolved Comment: doing well on Nc, wean as tolerated (9) Hypotension Status: Resolved Qualifiers: Hypotension type: other hypotension type Qualified Code(s): I95.89 - Other hypotension Comment: resolved.. (10) Ileus following gastrointestinal surgery Code(s): K91.30 - POSTPROC INTESTINAL OBST, UNSP TO PARTIAL VERSUS COMPLETE Status: Acute Comment: feels abou the same to slightly better today. Surgery following. SBFT pending report, looks to have contrast thorugh small bowel, not much in colon (11) Adenocarcinoma, colon Code(s): C18.9 - MALIGNANT NEOPLASM OF COLON, UNSPECIFIED Status: Acute Comment: LN negative, adenoCA on path. margins negative. Onc consult needed? - Plan cont current plan of care, PT/OT, case management social worker * .
--- NOTE | 2017-10-05 12:21 | PRG ---
DATE OF SERVICE: 10/04/2017 SUBJECTIVE: The patient was noted to be hemodynamically stable with no new complaints and noted with the following vital signs. OBJECTIVE: VITAL SIGNS: Afebrile with temperature 98, pulse 63, respiratory rate of 20, O2 sat 96%, blood press ure 200/105. HEENT: Unremarkable with moist oral mucosa. Neck was supple. No conjunctival injection or icterus. CARDIOVASCULAR SYSTEM: First and second heart sounds were heard. RESPIRATORY SYSTEM: Clear to auscultation. DIGESTIVE SYSTEM: . EXTREMITIES: No peripheral edema. SKIN: No new gross rash. LYMPHATICS: No peripheral lymphadenopathy. IMPRESSION: 1. End-stage renal disease on hemodialysis. 2. Hypertension, suboptimally controlled. 3. Colonic carcinoma, status post resection. PLAN: 1. Adjust patient's antihypertensive medications to optimize hemodynamics. 2. Outpatient dialysis placement in progress, case management on the case. 3. Further management to be dependent on the clinical course.
[2017-10-05] MEDS: Carvedilol 25 MG TAB PO SCH ×2 (12:27→16:54)
[2017-10-05] MEDS: NIFEdipine XL 60 MG TAB PO SCH (12:27)
[2017-10-05] MEDS: Famotidine 20 MG TAB PO SCH (12:27)
[2017-10-05] MEDS: hydrALAZINE 20 MG/ML VIAL SLOW IVP PRN (12:28)
--- NOTE | 2017-10-05 14:03 | PRG ---
DATE OF SERVICE: 10/05/2017 SUBJECTIVE: Mr. Loo is doing well on the telemetry floor. He is postoperative day #7 from laparos copic hand-assisted left hemicolectomy. He had a T3N0 colon cancer. Because of his ongoing medical problems (dialysis, electrolyte abnormalities, narcotics) and he had delay and resumption of normal b owel function. I obtained a small bowel follow-through yesterday that showed contrast entering the c olon within 1 hour. There did appear to be some colonic dilatation, but he continues to have bowel m ovements. He was advanced to solid food yesterday which he has tolerated uneventfully. He notes he had several bowel movements after small bowel follow-through yesterday. PHYSICAL EXAMINATION: VITAL SIGNS: He is afebrile, pulse is 83, blood pressure is still quite elevated. LUNGS: Clear to auscultation. ABDOMEN: Soft, nontender. There is mild distention. Normoactive bowel sounds. ASSESSMENT: The patient seems to be doing well following left colon resection. Small bowel follow-t hrough revealed no obstructive phenomenon. I therefore advanced him to a solid diet. He is stable f or discharge from a surgery standpoint. I would recommend no further narcotic pain medication (most people do not require this a week out from laparoscopic colon resection). Additionally, he has a john g history of polysubstance abuse and I would not trust him with oral narcotics. When he is discharge d, I would like to see him back in a couple of weeks. I will refer him to Oncology as an outpatient, but I doubt that chemotherapy will be recommended.
[2017-10-05] MEDS: HumaLOG 300 UNITS/3 ML VIAL SC PRN ×2 (18:31→21:15)
[2017-10-05] MEDS: Acetaminophen 500 MG TAB PO PRN (20:58)
[2017-10-05] MEDS: Atorvastatin Calcium 40 MG TAB PO SCH (20:58)
[2017-10-05] MEDS: Ondansetron HCl/PF 4 MG/2 ML Vial IVP PRN (20:59)
--- NOTE | 2017-10-06 05:43 | PRG ---
DATE OF SERVICE: 10/05/2017 SUBJECTIVE: The patient was seen and examined with no new complaint. Noted with the following vital signs. OBJECTIVE: VITAL SIGNS: Afebrile with temperature 98.1, pulse 85, respiratory rate of 20, O2 saturation of 98%. HEENT: Unremarkable with moist oral mucosa. No conjunctival injection or icterus. NECK: Supple. CARDIOVASCULAR SYSTEM: First and second heart sounds were heard. RESPIRATORY SYSTEM: Clear to auscultation. DIGESTIVE SYSTEM: Revealed a benign abdomen with positive bowel sounds. EXTREMITIES: No peripheral edema. SKIN: No new gross rash. LYMPHATICS: No peripheral lymphadenopathy. IMPRESSION: 1. End-stage renal disease, hemodialysis dependent. 2. Hypertension. 3. Colonic carcinoma, status post resection. PLAN: 1. Outpatient hemodialysis has already been arranged . 2. We will continue with current prescription for hemodialysis pending discharge of this patient. 3. Further management to be dependent on the clinical course.
[2017-10-06] MEDS: Famotidine 20 MG TAB PO SCH (09:57)
[2017-10-06] MEDS: Carvedilol 25 MG TAB PO SCH ×2 (09:57→18:23)
[2017-10-06] MEDS: Magnesium Oxide 400 MG TAB PO SCH ×2 (09:58→21:05)
[2017-10-06] MEDS: NIFEdipine XL 60 MG TAB PO SCH (09:58)
--- NOTE | 2017-10-06 13:19 | PDOC.PN ---
- Subjective Encounter Start Date: 10/06/17 Encounter Start Time: 09:30 Pt feeling better, several BMs last evening, no blood. Doug full liquid diet, walking with PT. Pt agreeable to SNF for rehabv when ready for D/C. No F/C, no n/V/D/C, no CP or SOB. 10 point ROS performed and neg for all systems except as per HPI - Objective Resuscitation Status: Resuscitation Status FULL:Full Resuscitation MAR Reviewed: Yes Vital Signs & Weight: Vital Signs (12 hours) Temp Pulse Resp BP BP Pulse Ox 10/06/17 12:00 98.3 F 76 18 178/87 H 97 10/06/17 09:58 81 142/92 H 10/06/17 08:00 99.0 F 81 18 142/92 H 10/06/17 04:00 98.1 F 79 20 168/87 H 99 Weight Admit Weight 202 lb 14.4 oz Weight 190 lb Most Recent Monitor Data Heart Rate from ECG 74 NIBP 134/70 NIBP BP-Mean 83 Respiration from ECG 15 SpO2 93 I&O: 10/05/17 10/06/17 10/07/17 06:59 06:59 06:59 Intake Total 1971 743 Output Total 575 450 Balance 1396 293 Result Diagrams: 10/05/17 04:16 10/05/17 04:16 Additional Labs: Accuchecks 10/06/17 10/05/17 10/05/17 06:07 20:39 16:28 POC Glucose 189 H 229 H 192 H Radiology Reviewed by me: No EKG Reviewed by me: Yes Phys Exam - Physical Examination Constitutional: NAD HEENT: PERRLA, moist MMs, sclera anicteric, oral pharynx no lesions Neck: no nodes, no JVD, supple, full ROM Respiratory: no wheezing, no rales, no rhonchi, clear to auscultation bilateral Cardiovascular: RRR, no significant murmur, no rub Gastrointestinal: soft, non-tender, positive bowel sounds distended, not tense Musculoskeletal: pulses present, edema present Neurological: non-focal, normal sensation, moves all 4 limbs Lymphatic: no nodes Psychiatric: normal affect, A&O x 3 Skin: no rash, normal turgor, cap refill <2 seconds Dx/Plan (1) Lower GI bleeding Code(s): K92.2 - GASTROINTESTINAL HEMORRHAGE, UNSPECIFIED Status: Chronic Comment: H/H 7.3 up to 8.8 10/04 without intervention, 8.0 10/05. no signs of further bleeding, surgery following. Recheck in 1-2 days (2) ROMAINE (acute kidney injury) Code(s): N17.9 - ACUTE KIDNEY FAILURE, UNSPECIFIED Status: Acute Comment: ROMAINE + CKD. Seen by nephrology. On HD, expected to be longer term. (3) Chronic kidney disease Code(s): N18.9 - CHRONIC KIDNEY DISEASE, UNSPECIFIED Status: Chronic Qualifiers: Chronic kidney disease stage: on chronic dialysis Qualified Code(s): N18.6 - End stage renal disease; Z99.2 - Dependence on renal dialysis; Z99.2 - Dependence on renal dialysis; Z99.2 - Dependence on renal dialysis; Z99.2 - Dependence on renal dialysis Comment: HD tomorrow (4) Diabetes mellitus type 2 in nonobese Code(s): E11.9 - TYPE 2 DIABETES MELLITUS WITHOUT COMPLICATIONS Status: Chronic (5) Colonic mass Code(s): K63.9 - DISEASE OF INTESTINE, UNSPECIFIED Status: Acute Comment: resection 09/28. Adeno CA on path, LN negative, margins of resection negative (6) Anemia due to blood loss, acute Code(s): D62 - ACUTE POSTHEMORRHAGIC ANEMIA Status: Resolved Comment: due to above. follow post op partial colectomy (7) Metabolic encephalopathy Code(s): G93.41 - METABOLIC ENCEPHALOPATHY Status: Resolved (8) Acute hypoxemic respiratory failure Code(s): J96.01 - ACUTE RESPIRATORY FAILURE WITH HYPOXIA Status: Resolved Comment: doing well on Nc, wean as tolerated (9) Hypotension Status: Resolved Qualifiers: Hypotension type: other hypotension type Qualified Code(s): I95.89 - Other hypotension Comment: resolved.. (10) Ileus following gastrointestinal surgery Code(s): K91.30 - POSTPROC INTESTINAL OBST, UNSP TO PARTIAL VERSUS COMPLETE Status: Acute Comment: feels abou the same to slightly better today. Surgery following. SBFT pending report, looks to have contrast thorugh small bowel, not much in colon (11) Adenocarcinoma, colon Code(s): C18.9 - MALIGNANT NEOPLASM OF COLON, UNSPECIFIED Status: Acute Comment: LN negative, adenoCA on path. margins negative. Onc consult needed? - Plan * .to rehab when cleared by surgery and labs stable. Follow up with nepgrology. * * [facility] referral sent to there and two other facilities.
--- NOTE | 2017-10-06 14:51 | PRG ---
DATE OF SERVICE: 10/06/2017 SUBJECTIVE: Mr. Loo is postoperative day #8 from laparoscopic hand-assisted left hemicolectomy. Clay olivares had T3 N0 colon cancer. He also has had renal failure to the point that is required initiation of dialysis during this admission. He has been on a solid diet for the past couple of days. He is tolerating his diet well. He denies any vomiting. He notes daily bowel function. He notes minimal abdominal discomfort. PHYSICAL EXAMINATION: VITAL SIGNS: He is afebrile, pulse is 76, blood pressure 142/92. ABDOMEN: Soft and nontender. All incisions are nicely healed. Bowel sounds are present and normoac tive. There is no longer any evidence of tympanitic bowel sounds. LABORATORY STUDIES: He has had no new labs today. ASSESSMENT AND PLAN: The patient had colon cancer and renal failure. He has multiple other medical issues including noncompliance and severe hypertension. He also has history of polysubstance abuse. From my standpoint, he is stable surgically and may be discharged home at anytime. He is already ta ramiro a solid diet. He is on no pain medication. I would like to see him back in a couple weeks for routine followup. I do not anticipate he will require any chemotherapy.
[2017-10-06] MEDS: Sodium Chloride 0.9% 1,000 ML IV SCH (18:25)
[2017-10-06] MEDS: HumaLOG 300 UNITS/3 ML VIAL SC PRN (18:43)
[2017-10-06] MEDS: Atorvastatin Calcium 40 MG TAB PO SCH (21:05)
[2017-10-06] MEDS: Ondansetron HCl/PF 4 MG/2 ML Vial IVP PRN (21:09)
[2017-10-06] MEDS: Acetaminophen 500 MG TAB PO PRN (21:09)
[2017-10-07 05:28] LABS: #Eosinphils 0.4 thou/uL (0.0-0.7); #Lymphocytes 1.5 thou/uL (1.20-3.40); #Monocytes 0.8 thou/uL (0.11-0.59); #Neutrophils 6.6 thou/uL (1.40-6.50); %Basophils 0.4 % (0.0-1.0); %Eosinophils 4.8 % (0.0-10.0); %Lymphocytes 15.7 % (21.0-51.0); %Monocytes 8.5 % (0.0-10.0); %Neutrophils 70.6 % (42.0-75.0); Hemoglobin 7.4 g/dL (14.0-18.0); Mean Corpuscular HGB CONC 32.8 g/dL (32.0-36.0); Mean Corpuscular Volume 88.2 fl (80.0-94.0); Mean Platelet Volume 7.4 fL (7.4-10.4); Platelet Count 269 thou/uL (130-400); RBC Distribution Width 14.1 % (11.5-14.5); Red Blood Cell (RBC) Count 2.54 mill/uL (4.70-6.10); White Blood Cell (WBC) Count 9.3 thou/uL (4.8-10.8)
[2017-10-07 05:50] LABS: Anion Gap 10 mmol/L (10-20); BUN (Urea Nitrogen) 20 mg/dL (8.4-25.7); Calc. Creatinine Clearance 24 mL/min (70-130); Calcium 8.7 mg/dL (7.8-10.44); Carbon Dioxide 29 mmol/L (22-29); Chloride 96 mmol/L (98-107); Estimated GFR-MDRD 18; Glucose 224 mg/dL (70-105); Magnesium 1.4 mg/dL (1.6-2.6); Potassium 3.8 mmol/L (3.5-5.1); Sodium 131 mmol/L (136-145)
--- NOTE | 2017-10-07 06:36 | PRG ---
DATE OF SERVICE: 10/06/2017 SUBJECTIVE: The patient was seen and examined today. Noted with the following vital signs. PHYSICAL EXAMINATION: VITAL SIGNS: Afebrile with temperature 98.7, pulse 82, respiratory rate of 18, O2 sat 96%, blood pre ssure 149/81. HEENT: Unremarkable with moist oral mucosa. No conjunctival injection or icterus. NECK: Supple. CARDIOVASCULAR SYSTEM: First and second heart sounds were heard. RESPIRATORY SYSTEM: Clear to auscultation. DIGESTIVE SYSTEM: Revealed a benign abdomen with positive bowel sounds. EXTREMITIES: No peripheral edema. SKIN: No new gross rash. LYMPHATICS: No peripheral lymphadenopathy. IMPRESSION: 1. End-stage renal disease, hemodialysis dependent. 2. Colon carcinoma, status post colectomy. 3. Anemia of chronic kidney disease. PLAN: 1. The patient seems to outpatient dialysis facility . 2. . 3. Further management will be dependent on the clinical course.
[2017-10-07] MEDS ORDERED: Heparin 10,000 UNITS/ 10 ML VIAL ONE (09:00)
[2017-10-07] MEDS: Ondansetron HCl/PF 4 MG/2 ML Vial IVP PRN ×2 (10:39→16:02)
--- NOTE | 2017-10-07 11:45 | PDOC.PN ---
- Subjective Encounter Start Date: 10/07/17 Encounter Start Time: 08:20 PT seen in HD. liberty mukherjee, BP up. surgery nte reviewed, cleared for discharge when stable. No f/c, no n/V/d/C. No CP ro SOB, no cough or sputum. pending SNF placement 10 point ROs performed and neg for all systems except as per HPI - Objective Resuscitation Status: Resuscitation Status FULL:Full Resuscitation MAR Reviewed: Yes Vital Signs & Weight: Vital Signs (12 hours) Temp Pulse Resp BP Pulse Ox 10/07/17 04:00 98.2 F 83 18 162/79 H 100 10/07/17 01:31 96 Weight Admit Weight 202 lb 14.4 oz Weight 196 lb 9 oz Most Recent Monitor Data Heart Rate from ECG 74 NIBP 134/70 NIBP BP-Mean 83 Respiration from ECG 15 SpO2 93 I&O: 10/06/17 10/07/17 10/08/17 06:59 06:59 06:59 Intake Total 743 1680 Output Total 450 500 Balance 293 1180 Result Diagrams: 10/07/17 04:19 10/07/17 04:19 Additional Labs: Accuchecks 10/07/17 10/06/17 10/06/17 05:44 20:48 16:29 POC Glucose 215 H 170 H 280 H 10/06/17 11:09 POC Glucose 215 H EKG Reviewed by me: Yes (telemetry reviewed) Phys Exam - Physical Examination Constitutional: NAD HEENT: PERRLA, moist MMs, sclera anicteric, oral pharynx no lesions Neck: no nodes, no JVD, supple, full ROM Respiratory: no wheezing, no rales, no rhonchi, clear to auscultation bilateral Cardiovascular: RRR, no significant murmur, no rub Gastrointestinal: soft, non-tender, no distention, positive bowel sounds Musculoskeletal: pulses present, edema present Neurological: non-focal, normal sensation, moves all 4 limbs Lymphatic: no nodes Psychiatric: normal affect, A&O x 3 Skin: no rash, normal turgor, cap refill <2 seconds Dx/Plan (1) Lower GI bleeding Code(s): K92.2 - GASTROINTESTINAL HEMORRHAGE, UNSPECIFIED Status: Chronic Comment: H/H 7.3 up to 8.8 10/04 without intervention, 8.0 10/05. no signs of further bleeding, surgery following. 7.4 today, pre-HD. will check post after fluid removal. (2) ROMAINE (acute kidney injury) Code(s): N17.9 - ACUTE KIDNEY FAILURE, UNSPECIFIED Status: Acute Comment: ROMAINE + CKD. Seen by nephrology. On HD, expected to be longer term. (3) Chronic kidney disease Code(s): N18.9 - CHRONIC KIDNEY DISEASE, UNSPECIFIED Status: Chronic Qualifiers: Chronic kidney disease stage: on chronic dialysis Qualified Code(s): N18.6 - End stage renal disease; Z99.2 - Dependence on renal dialysis; Z99.2 - Dependence on renal dialysis; Z99.2 - Dependence on renal dialysis; Z99.2 - Dependence on renal dialysis Comment: HD tomorrow (4) Diabetes mellitus type 2 in nonobese Code(s): E11.9 - TYPE 2 DIABETES MELLITUS WITHOUT COMPLICATIONS Status: Chronic (5) Colonic mass Code(s): K63.9 - DISEASE OF INTESTINE, UNSPECIFIED Status: Acute Comment: resection 09/28. Adeno CA on path, LN negative, margins of resection negative (6) Anemia due to blood loss, acute Code(s): D62 - ACUTE POSTHEMORRHAGIC ANEMIA Status: Resolved Comment: due to above. follow post op partial colectomy (7) Metabolic encephalopathy Code(s): G93.41 - METABOLIC ENCEPHALOPATHY Status: Resolved (8) Acute hypoxemic respiratory failure Code(s): J96.01 - ACUTE RESPIRATORY FAILURE WITH HYPOXIA Status: Resolved Comment: doing well on Nc, wean as tolerated (9) Hypotension Status: Resolved Qualifiers: Hypotension type: other hypotension type Qualified Code(s): I95.89 - Other hypotension Comment: resolved.. (10) Ileus following gastrointestinal surgery Code(s): K91.30 - POSTPROC INTESTINAL OBST, UNSP TO PARTIAL VERSUS COMPLETE Status: Acute Comment: feels abou the same to slightly better today. Surgery following. SBFT pending report, looks to have contrast thorugh small bowel, not much in colon (11) Adenocarcinoma, colon Code(s): C18.9 - MALIGNANT NEOPLASM OF COLON, UNSPECIFIED Status: Acute Comment: LN negative, adenoCA on path. margins negative. Onc consult needed? - Plan cont current plan of care, PT/OT, out of bed/ambulate * . physical deconditioning. to SNF when arranged. cleared by surgically. medically stable
[2017-10-07] MEDS: Famotidine 20 MG TAB PO SCH (11:54)
[2017-10-07] MEDS: Carvedilol 25 MG TAB PO SCH ×2 (11:54→18:05)
[2017-10-07] MEDS: NIFEdipine XL 60 MG TAB PO SCH (11:54)
[2017-10-07] MEDS: hydrALAZINE 20 MG/ML VIAL SLOW IVP PRN (13:38)
[2017-10-07] MEDS ORDERED: HYDROcodone/Acetaminophen 10/325 mg Tablet PO SCH (14:00)
[2017-10-07 15:54] LABS: Hemoglobin 8.3 g/dL (14.0-18.0)
[2017-10-07] MEDS: HumaLOG 300 UNITS/3 ML VIAL SC PRN (16:03)
[2017-10-07] MEDS: Acetaminophen 500 MG TAB PO PRN (19:45)
[2017-10-07] MEDS: Atorvastatin Calcium 40 MG TAB PO SCH (19:46)
[2017-10-07] MEDS: Promethazine HCl 25 MG/ML VIAL IM PRN (21:26)
[2017-10-08] MEDS: hydrALAZINE 20 MG/ML VIAL SLOW IVP PRN ×2 (00:17→11:59)
[2017-10-08] MEDS ORDERED: Acetaminophen/Codeine 30-300mg Tablet PO SCH (00:45)
[2017-10-08] MEDS: Acetaminophen 500 MG TAB PO PRN ×2 (02:46→19:53)
[2017-10-08] MEDS: Ondansetron HCl/PF 4 MG/2 ML Vial IVP PRN (02:47)
[2017-10-08] MEDS: Carvedilol 25 MG TAB PO SCH ×2 (08:33→16:46)
[2017-10-08] MEDS: Famotidine 20 MG TAB PO SCH (08:33)
[2017-10-08] MEDS: NIFEdipine XL 60 MG TAB PO SCH (08:33)
[2017-10-08] MEDS: HumaLOG 300 UNITS/3 ML VIAL SC PRN ×3 (11:59→22:16)
--- NOTE | 2017-10-08 13:20 | RAD ---
ABDOMEN 1 VIEW: Date: 10/08/17 HISTORY: Abdominal pain. FINDINGS/IMPRESSION: Comparison made with exam of 10/04/17. The bowel gas pattern is unremarkable. There are degenerative changes in the spine. Large caliber vas cular sheath is redemonstrated. POS: [facility]
--- NOTE | 2017-10-08 13:56 | PDOC.PN ---
- Subjective Encounter Start Date: 10/08/17 Encounter Start Time: 13:55 still episodic belly pain, walking some. no vomiting, some nausea. no f/c, no D/C, no CP or SOB. KUB ordered earlier, back with NS gas pattern. 10 point ROS performed and neg for all systems except as per HPI - Objective Resuscitation Status: Resuscitation Status FULL:Full Resuscitation MAR Reviewed: Yes Vital Signs & Weight: Vital Signs (12 hours) Temp Pulse Resp BP BP BP BP 10/08/17 11:59 82 180/82 H 10/08/17 11:22 97.7 F 82 16 180/82 H 10/08/17 09:50 179/89 H 10/08/17 08:33 84 186/90 H 10/08/17 08:00 97.2 F L 84 16 186/90 H 10/08/17 04:00 98.1 F 84 18 152/69 H Pulse Ox 10/08/17 11:59 10/08/17 11:22 100 10/08/17 09:50 10/08/17 08:33 10/08/17 08:00 94 L 10/08/17 04:00 Weight Admit Weight 202 lb 14.4 oz Weight 195 lb 10 oz Most Recent Monitor Data Heart Rate from ECG 74 NIBP 134/70 NIBP BP-Mean 83 Respiration from ECG 15 SpO2 93 I&O: 10/07/17 10/08/17 10/09/17 06:59 06:59 06:59 Intake Total 1680 240 Output Total 500 450 Balance 1180 -210 Result Diagrams: 10/07/17 15:43 10/07/17 04:19 Additional Labs: Accuchecks 10/08/17 10/08/17 10/07/17 10:58 07:18 20:38 POC Glucose 331 H 292 H 211 H 10/07/17 15:50 POC Glucose 261 H Radiology Reviewed by me: Yes Phys Exam - Physical Examination Constitutional: NAD HEENT: PERRLA, moist MMs, sclera anicteric, oral pharynx no lesions Neck: no nodes, no JVD, supple, full ROM Respiratory: no wheezing, no rales, no rhonchi, clear to auscultation bilateral Cardiovascular: RRR, no significant murmur Gastrointestinal: soft, non-tender, positive bowel sounds distended, no r/r/g Musculoskeletal: no edema, pulses present Neurological: non-focal, normal sensation, moves all 4 limbs Lymphatic: no nodes Psychiatric: normal affect, A&O x 3 Skin: no rash, normal turgor, cap refill <2 seconds Dx/Plan (1) Lower GI bleeding Code(s): K92.2 - GASTROINTESTINAL HEMORRHAGE, UNSPECIFIED Status: Resolved Comment: H/H 7.3 up to 8.8 10/04 without intervention, 8.0 10/05. no signs of further bleeding, surgery following. 7.4 today, pre-HD. 8.3 today, no further signs of bleeding (2) ROMAINE (acute kidney injury) Code(s): N17.9 - ACUTE KIDNEY FAILURE, UNSPECIFIED Status: Resolved Comment : now CKD 5 on HD, see below. (3) Chronic kidney disease Code(s): N18.9 - CHRONIC KIDNEY DISEASE, UNSPECIFIED Status: Chronic Qualifiers: Chronic kidney disease stage: on chronic dialysis Qualified Code(s): N18.6 - End stage renal disease; Z99.2 - Dependence on renal dialysis; Z99.2 - Dependence on renal dialysis; Z99.2 - Dependence on renal dialysis; Z99.2 - Dependence on renal dialysis Comment: HD MWF as out patient, (4) Diabetes mellitus type 2 in nonobese Code(s): E11.9 - TYPE 2 DIABETES MELLITUS WITHOUT COMPLICATIONS Status: Chronic (5) Colonic mass Code(s): K63.9 - DISEASE OF INTESTINE, UNSPECIFIED Status: Acute Comment: resection 09/28. [place] CA on path, LN negative, margins of resection negative (6) Metabolic encephalopathy Code(s): G93.41 - METABOLIC ENCEPHALOPATHY Status: Resolved (7) Acute hypoxemic respiratory failure Code(s): J96.01 - ACUTE RESPIRATORY FAILURE WITH HYPOXIA Status: Resolved Comment: doing well on Nc, wean as tolerated (8) Hypotension Status: Resolved Qualifiers: Hypotension type: other hypotension type Qualified Code(s): I95.89 - Other hypotension Comment: resolved.. (9) Ileus following gastrointestinal surgery Code(s): K91.30 - POSTPROC INTESTINAL OBST, UNSP TO PARTIAL VERSUS COMPLETE Status: Resolved Comment: improved, liberty diet, occasional pain. (10) Adenocarcinoma, colon Code(s): C18.9 - MALIGNANT NEOPLASM OF COLON, UNSPECIFIED Status: Resolved Comment: LN negative, adenoCA on path. margins negative. Onc consult needed? - Plan cont current plan of care, PT/OT, out of bed/ambulate * .discharge when okay with surgery and pain better. SNF all refused pt. only option is home with friends of family. Pt unfunded at present, will be 2-3 months until MCR/IGLESIA approved. had 1 or 2 more SNFs to wait for decisions on, will discuss with case management, pt ready for d/c probably tomorrow. [facility] dplace to go, i told him to start making phone calls.
[2017-10-08] MEDS: Atorvastatin Calcium 40 MG TAB PO SCH (19:54)
[2017-10-09] MEDS: HumaLOG 300 UNITS/3 ML VIAL SC PRN ×3 (06:20→16:38)
[2017-10-09] MEDS: Carvedilol 25 MG TAB PO SCH ×2 (07:45→16:38)
[2017-10-09] MEDS: NIFEdipine XL 60 MG TAB PO SCH (07:45)
--- NOTE | 2017-10-09 08:17 | PRG ---
DATE OF SERVICE: 10/08/2017 SUBJECTIVE: The patient was seen and examined. PHYSICAL EXAMINATION: VITAL SIGNS: Afebrile with temperature 97.7, pulse 82, respiratory rate 16, blood pressure 180/82. HEENT: Unremarkable. CARDIOVASCULAR: First and second heart sounds were heard. RESPIRATORY: Clear to auscultation. DIGESTIVE: Revealed a benign abdomen. EXTREMITIES: No peripheral edema. SKIN: No new gross rash. LYMPHATICS: No peripheral lymphadenopathy. IMPRESSION: 1. End-stage renal disease, on hemodialysis. 2. Hypertension seems to be suboptimally controlled. 3. Colonic mass, status post resection. PLAN: 1. The patient to continue with current regimen for hemodialysis. 2. Adjust antihypertensive medications to optimize hemodynamics. 3. Outpatient . We will defer to case management. 4. Further management to be dependent on the clinical course.
--- NOTE | 2017-10-09 08:18 | PRG ---
DATE OF SERVICE: 10/07/2017 SUBJECTIVE: The patient was seen and examined. PHYSICAL EXAMINATION: VITAL SIGNS: Afebrile with temperature 98.2, pulse 83, respiratory rate 18, blood pressure 162/79, O 2 sat 100%. HEENT: Unremarkable. CARDIOVASCULAR: First and second heart sounds were heard. RESPIRATORY: Clear to auscultation. DIGESTIVE: Revealed a benign abdomen with positive bowel sounds. EXTREMITIES: No peripheral edema. SKIN: No new gross rash. LYMPHATICS: No peripheral lymphadenopathy. IMPRESSION: 1. End-stage renal disease on hemodialysis. 2. Hypertension. 3. Colonic CA status post resection. PLAN: 1. The patient to continue with hemodialysis according to the current schedule. 2. Outpatient dialysis placement in progress. Patient seems to have been accepted in the outpatient dialysis unit; however, group home facility . 3. Further management to be dependent on the clinical course.
[2017-10-09] MEDS: hydrALAZINE 20 MG/ML VIAL SLOW IVP PRN (09:45)
[2017-10-09] MEDS ORDERED: Heparin 1,000 UNITS/ML VIAL ONE (11:11)
[2017-10-09] MEDS: Ondansetron HCl/PF 4 MG/2 ML Vial IVP PRN (11:40)
--- NOTE | 2017-10-09 12:16 | PDOC.PN ---
- Subjective Encounter Start Date: 10/09/17 Encounter Start Time: 12:14 Subjective: Seen and examined with no new complaint-Bp very high - Objective Resuscitation Status: Resuscitation Status FULL:Full Resuscitation Vital Signs & Weight: Vital Signs (12 hours) Temp Pulse Resp BP BP BP Pulse Ox 10/09/17 11:25 98.5 F 87 18 172/88 H 100 10/09/17 09:45 76 221/120 H 10/09/17 05:38 98.0 F 78 16 148/80 H 99 Weight Admit Weight 202 lb 14.4 oz Weight 196 lb 7.615 oz Most Recent Monitor Data Heart Rate from ECG 74 NIBP 134/70 NIBP BP-Mean 83 Respiration from ECG 15 SpO2 93 I&O: 10/08/17 10/09/17 10/10/17 06:59 06:59 06:59 Intake Total 240 2260 Output Total 450 1150 Balance -210 1110 Result Diagrams: 10/07/17 15:43 10/07/17 04:19 Additional Labs: Accuchecks 10/09/17 10/08/17 10/08/17 05:50 20:29 16:28 POC Glucose 339 H 345 H 186 H Phys Exam - Physical Examination Constitutional: NAD HEENT: PERRLA, moist MMs, sclera anicteric, TM's clear Neck: no nodes, no JVD, supple, full ROM Respiratory: no wheezing, no rales, no rhonchi, clear to auscultation bilateral Cardiovascular: RRR, no rub Gastrointestinal: soft, non-tender, no distention, positive bowel sounds Musculoskeletal: no edema, pulses present Dx/Plan (1) ESRD (end stage renal disease) on dialysis Code(s): N18.6 - END STAGE RENAL DISEASE; Z99.2 - DEPENDENCE ON RENAL DIALYSIS Status: Acute (2) Colonic mass Code(s): K63.9 - DISEASE OF INTESTINE, UNSPECIFIED Status: Acute Comment: resection 09/28. [place] CA on path, LN negative, margins of resection negative (3) Pulmonary edema Code(s): J81.1 - CHRONIC PULMONARY EDEMA Status: Acute Qualifiers: Chronicity: acute Qualified Code(s): J81.0 - Acute pulmonary edema (4) Acute hypoxemic respiratory failure Code(s): J96.01 - ACUTE RESPIRATORY FAILURE WITH HYPOXIA Status: Resolved Comment: doing well on Nc, wean as tolerated (5) Anemia due to blood loss, acute Code(s): D62 - ACUTE POSTHEMORRHAGIC ANEMIA Status: Resolved Comment: due to above. follow post op partial colectomy (6) Acute on chronic congestive heart failure Code(s): I50.9 - HEART FAILURE, UNSPECIFIED Status: Acute Qualifiers: Congestive heart failure type: diastolic Qualified Code(s): I50.33 - Acute on chronic diastolic (congestive) heart failure Comment: clinically compensated...resolved (7) Diabetes mellitus type 2 in nonobese Code(s): E11.9 - TYPE 2 DIABETES MELLITUS WITHOUT COMPLICATIONS Status: Chronic (8) Hypertension Code(s): I10 - ESSENTIAL (PRIMARY) HYPERTENSION Status: Chronic Comment: Stable. - Plan PT/OT, social work case manager Adjust antihypertensives to optimise hemodynamics -: awaiting placement * .
[2017-10-09] MEDS: Famotidine 20 MG TAB PO SCH (12:40)
[2017-10-09] MEDS: Promethazine HCl 25 MG/ML VIAL IM PRN (14:53)
[2017-10-09] MEDS: Acetaminophen 500 MG TAB PO PRN ×2 (16:38→20:29)
[2017-10-09] MEDS: Atorvastatin Calcium 40 MG TAB PO SCH (20:29)
[2017-10-09] MEDS ORDERED: Acetaminophen/Codeine 30-300mg Tablet PO SCH (21:00)
[2017-10-10] MEDS: Acetaminophen 500 MG TAB PO PRN (04:00)
[2017-10-10] MEDS: Famotidine 20 MG TAB PO SCH (07:45)
[2017-10-10] MEDS: Carvedilol 25 MG TAB PO SCH ×2 (07:46→16:15)
[2017-10-10] MEDS: hydrALAZINE 25 MG TAB PO SCH ×3 (07:48→21:17)
[2017-10-10 08:00] LABS: #Basophils 0.1 thou/uL (0.0-0.2); #Eosinphils 0.6 thou/uL (0.0-0.7); #Lymphocytes 1.3 thou/uL (1.20-3.40); #Monocytes 1.1 thou/uL (0.11-0.59); #Neutrophils 8.9 thou/uL (1.40-6.50); %Basophils 0.4 % (0.0-1.0); %Eosinophils 4.8 % (0.0-10.0); %Lymphocytes 11.1 % (21.0-51.0); %Monocytes 9.1 % (0.0-10.0); %Neutrophils 74.6 % (42.0-75.0); Mean Corpuscular HGB CONC 32.6 g/dL (32.0-36.0); Mean Corpuscular Hemoglobin 28.1 pg (27.0-31.0); Mean Corpuscular Volume 86.3 fl (80.0-94.0); Mean Platelet Volume 7.1 fL (7.4-10.4); Platelet Count 264 thou/uL (130-400); RBC Distribution Width 13.9 % (11.5-14.5); Red Blood Cell (RBC) Count 3.19 mill/uL (4.70-6.10); White Blood Cell (WBC) Count 11.9 thou/uL (4.8-10.8)
[2017-10-10 08:14] LABS: ALT (SGPT) 10 U/L (8-55); AST (SGOT) 16 U/L (5-34); Albumin 3.8 g/dL (3.5-5.0); Alkaline Phosphatase 79 U/L (40-150); Anion Gap 11 mmol/L (10-20); BUN (Urea Nitrogen) 12 mg/dL (8.4-25.7); Bilirubin, Total 0.6 mg/dL (0.2-1.2); Calc. Creatinine Clearance 44 mL/min (70-130); Calcium 8.9 mg/dL (7.8-10.44); Carbon Dioxide 31 mmol/L (22-29); Chloride 90 mmol/L (98-107); Estimated GFR-MDRD 34; Globulin 3.6 g/dL (2.4-3.5); Glucose 253 mg/dL (70-105); Potassium 3.5 mmol/L (3.5-5.1); Protein, Total 7.4 g/dL (6.0-8.3); Sodium 128 mmol/L (136-145)
[2017-10-10] MEDS ORDERED: cloNIDine 0.1 MG TAB PO SCH (09:00)
--- NOTE | 2017-10-10 10:34 | PDOC.PN ---
- Subjective Encounter Start Date: 10/10/17 Encounter Start Time: 10:30 Subjective: lethargic, not in distress -: per staff he is awake during night -: no narcotics given this am - Objective Resuscitation Status: Resuscitation Status FULL:Full Resuscitation MAR Reviewed: Yes Vital Signs & Weight: Vital Signs (12 hours) Temp Pulse Resp BP BP BP Pulse Ox 10/10/17 10:28 63 18 117/64 10/10/17 08:00 97.6 F 82 16 99 10/10/17 07:48 82 204/101 H 10/10/17 07:33 97.6 F 81 16 204/101 H 99 Weight Admit Weight 202 lb 14.4 oz Weight 197 lb 8.547 oz Most Recent Monitor Data Heart Rate from ECG 74 NIBP 134/70 NIBP BP-Mean 83 Respiration from ECG 15 SpO2 93 I&O: 10/09/17 10/10/17 10/11/17 06:59 06:59 06:59 Intake Total 2260 2440 Output Total 1150 3 Balance 1110 2437 Result Diagrams: 10/10/17 07:42 10/10/17 07:42 Additional Labs: Accuchecks 10/10/17 10/09/17 10/09/17 05:55 20:54 16:27 POC Glucose 268 H 203 H 217 H 10/09/17 12:09 POC Glucose 208 H Phys Exam - Physical Examination HEENT: PERRLA, moist MMs Neck: no JVD, supple Respiratory: no wheezing, no rales Cardiovascular: RRR, no significant murmur Gastrointestinal: soft, non-tender, no distention, positive bowel sounds Musculoskeletal: no edema, pulses present Neurological: non-focal, moves all 4 limbs Dx/Plan (1) Adenocarcinoma, colon Code(s): C18.9 - MALIGNANT NEOPLASM OF COLON, UNSPECIFIED Status: Resolved Comment: LN negative, adenoCA on path. margins negative. Onc consult per gen surg advice (2) ESRD (end stage renal disease) on dialysis Code(s): N18.6 - END STAGE RENAL DISEASE; Z99.2 - DEPENDENCE ON RENAL DIALYSIS Status: Acute (3) Anemia due to blood loss, acute Code(s): D62 - ACUTE POSTHEMORRHAGIC ANEMIA Status: Acute (4) Cocaine abuse Code(s): F14.10 - COCAINE ABUSE, UNCOMPLICATED Status: Chronic (5) Coronary artery disease Code(s): I25.10 - ATHSCL HEART DISEASE OF [place] CORONARY ARTERY W/O ANG PCTRS Status: Chronic Qualifiers: Coronary Disease-Associated Artery/Lesion type: [place] artery [place] vs. transplanted heart: [place] heart Associated angina: without angina Qualified Code(s): I25.10 - Atherosclerotic heart disease of [place] coronary artery without angina pectoris (6) Diabetes mellitus type 2 in nonobese Code(s): E11.9 - TYPE 2 DIABETES MELLITUS WITHOUT COMPLICATIONS Status: Chronic Comment: uncontrolled (7) Hypertension Code(s): I10 - ESSENTIAL (PRIMARY) HYPERTENSION Status: Chronic Qualifiers: Hypertension type: essential hypertension Qualified Code(s): I10 - Essential (primary) hypertension Comment: uncontrolled (8) Physical deconditioning Code(s): R53.81 - OTHER [place]AISE Status: Acute - Plan awaiting placement, will need outpt HD chair -: add hydralazine -: add levemir -: passing stool per staff -: Hb around 9g, continue HD per nephrology advice * . Review of Systems - Medications/Allergies Allergies/Adverse Reactions: Allergies Allergy/AdvReac Type Severity Reaction Status Date / Time No Known Allergies Allergy Verified 02/18/15 19:53 Medications: Current Medications Acetaminophen (Tylenol) 1,000 mg PO Q6H PRN PRN Reason: Moderate to Severe Pain (6-10) Last Admin: 10/10/17 04:00 Dose: 1,000 mg Albuterol/Ipratropium (Duoneb) 3 ml NEB Q4H PRN PRN Reason: Wheezing Atorvastatin Calcium (Lipitor) 40 mg PO HS [facility] Last Admin: 10/09/17 20:29 Dose: 40 mg Carvedilol (Coreg) 25 mg PO BID-WM [facility] Last Admin: 10/10/17 07:46 Dose: 25 mg Clonidine (Catapres) 0.1 mg PO TID [facility] Last Admin: 10/10/17 07:48 Dose: 0.1 mg Dextrose/Water (Dextrose 50%) 25 gm SLOW IVP PRN PRN PRN Reason: Hypoglycemia Epoetin Efren (Procrit) 7,500 units SC Q7D [facility] Last Admin: 10/03/17 22:27 Dose: 7,500 units Famotidine (Pepcid) 20 mg PO DAILY [facility] Last Admin: 10/10/17 07:45 Dose: 20 mg Glucagon (Glucagon) 1 mg IM PRN PRN PRN Reason: Hypoglycemia Hydralazine HCl (Apresoline) 10 mg SLOW IVP Q4H PRN PRN Reason: SBP > 170 or DBP > 100 Last Admin: 10/09/17 09:45 Dose: 10 mg Hydralazine HCl (Apresoline) 50 mg PO TID [facility] Last Admin: 10/10/17 07:48 Dose: 50 mg Dextrose/Water (D5w) 1,000 mls @ 0 mls/hr IV .Q0M PRN; As Directed PRN Reason: Hypoglycemia Insulin Detemir 10 units/ (Miscellaneous Medication) 0.1 mls @ 0 mls/hr SC BID [facility] Insulin Human Lispro (Humalog) 0 units SC .MODERATE SLIDING SC PRN PRN Reason: Moderate Correctional Scale Last Admin: 10/09/17 16:38 Dose: 4 units Isosorbide Mononitrate (Imdur Er) 30 mg PO DAILY [facility] Last Admin: 10/10/17 07:45 Dose: 30 mg Labetalol HCl (Normodyne) 20 mg SLOW IVP Q15MIN PRN PRN Reason: FOR SBP > 180 Last Admin: 09/28/17 06:25 Dose: 20 mg Nifedipine (Procardia Xl) 90 mg PO DAILY [facility] Ondansetron HCl (Zofran) 4 mg IVP Q6H PRN PRN Reason: Nausea/Vomiting Last Admin: 10/09/17 11:40 Dose: 4 mg Promethazine HCl (Phenergan) 12.5 mg IM Q4H PRN PRN Reason: Nausea/Vomiting Last Admin: 10/09/17 14:53 Dose: 12.5 mg Sodium Chloride (Flush - Normal Saline) 10 ml IVF PRN PRN PRN Reason: Saline Flush Last Admin: 10/06/17 21:11 Dose: 10 ml
[2017-10-10] MEDS: Insulin Detemir 100 UNITS/ML 10 UNITS in Pre-Filled Syringe 1 EACH SC SCH ×2 (12:39→21:16)
[2017-10-10] MEDS: HumaLOG 300 UNITS/3 ML VIAL SC PRN ×2 (12:44→16:15)
[2017-10-10] MEDS: NIFEdipine XL 90 MG TAB PO SCH (12:45)
[2017-10-10] MEDS ORDERED: Epoetin (ESRD) 10,000 UNITS/ML VIAL SC SCH (21:00)
[2017-10-10] MEDS: Atorvastatin Calcium 40 MG TAB PO SCH (21:16)
[2017-10-10] MEDS: Epoetin (ESRD) 20,000 UNITS/ML SC SCH (22:03)
--- NOTE | 2017-10-10 22:49 | PRG ---
DATE OF SERVICE: 10/10/2017 SUBJECTIVE: The patient was seen and examined, noted with the following vital signs. PHYSICAL EXAMINATION: VITAL SIGNS: Afebrile with temperature 97.6, pulse 82, respiratory rate 16, O2 sat 99%, blood pressu re 204/101. HEENT EXAMINATION: Unremarkable. Moist oral mucosa. No conjunctival injection or icterus. NECK: Supple. CARDIOVASCULAR SYSTEM: First and second heart sounds were heard. RESPIRATORY SYSTEM: Clear to auscultation. DIGESTIVE SYSTEM: Revealed a benign abdomen with normal bowel sounds. EXTREMITIES: No peripheral edema. LABORATORY INVESTIGATIONS: Showed a creatinine of 2.4, sodium 128, emoglobin of 9, . IMPRESSION: 1. Hypertension, suboptimally controlled. 2. End-stage renal disease, hemodialyzed yesterday. 3. Colon cancer, status post resection. PLAN: 1. Patient's antihypertensive medications to be adjusted for today. 2. Renal replacement therapy per schedule. 3. Outpatient dialysis placement in progress.
[2017-10-11] MEDS: Carvedilol 25 MG TAB PO SCH ×2 (08:30→16:42)
[2017-10-11] MEDS: Insulin Detemir 100 UNITS/ML 10 UNITS in Pre-Filled Syringe 1 EACH SC SCH (09:10)
[2017-10-11] MEDS: Famotidine 20 MG TAB PO SCH (09:11)
[2017-10-11] MEDS: hydrALAZINE 25 MG TAB PO SCH ×3 (09:11→21:48)
[2017-10-11] MEDS: NIFEdipine XL 90 MG TAB PO SCH (09:12)
--- NOTE | 2017-10-11 09:43 | PDOC.PN ---
- Subjective Encounter Start Date: 10/11/17 Encounter Start Time: 09:40 Subjective: awake and oriented well this am -: eating well, is amb to restroom - Objective Resuscitation Status: Resuscitation Status FULL:Full Resuscitation MAR Reviewed: Yes Vital Signs & Weight: Vital Signs (12 hours) Temp Pulse Resp BP BP Pulse Ox 10/11/17 09:12 80 159/77 H 10/11/17 09:11 73 159/77 H 10/11/17 08:00 98.3 F 80 16 159/77 H 100 Weight Admit Weight 202 lb 14.4 oz Weight 201 lb 4.513 oz Most Recent Monitor Data Heart Rate from ECG 74 NIBP 134/70 NIBP BP-Mean 83 Respiration from ECG 15 SpO2 93 I&O: 10/10/17 10/11/17 10/12/17 06:59 06:59 06:59 Intake Total 2440 1210 Output Total 3 Balance 2437 1210 Result Diagrams: 10/10/17 07:42 10/10/17 07:42 Additional Labs: Accuchecks 10/11/17 10/10/17 10/10/17 06:05 21:15 15:38 POC Glucose 255 H 210 H 219 H 10/10/17 11:11 POC Glucose 297 H Phys Exam - Physical Examination HEENT: PERRLA, moist MMs Neck: no JVD, supple Respiratory: no wheezing, no rales Cardiovascular: RRR, no significant murmur Gastrointestinal: soft, non-tender, no distention, positive bowel sounds Musculoskeletal: no edema, pulses present Neurological: non-focal, moves all 4 limbs Psychiatric: A&O x 3 Dx/Plan (1) Adenocarcinoma, colon Code(s): C18.9 - MALIGNANT NEOPLASM OF COLON, UNSPECIFIED Status: Resolved Comment: s/p left hemicolectomy, LN negative, adenoCA on path. margins negative. Onc consult per gen surg advice (2) ESRD (end stage renal disease) on dialysis Code(s): N18.6 - END STAGE RENAL DISEASE; Z99.2 - DEPENDENCE ON RENAL DIALYSIS Status: Acute (3) Anemia due to blood loss, acute Code(s): D62 - ACUTE POSTHEMORRHAGIC ANEMIA Status: Acute (4) Cocaine abuse Code(s): F14.10 - COCAINE ABUSE, UNCOMPLICATED Status: Chronic (5) Coronary artery disease Code(s): I25.10 - ATHSCL HEART DISEASE OF [place] CORONARY ARTERY W/O ANG PCTRS Status: Chronic Qualifiers: Coronary Disease-Associated Artery/Lesion type: [place] artery [place] vs. transplanted heart: [place] heart Associated angina: without angina Qualified Code(s): I25.10 - Atherosclerotic heart disease of [place] coronary artery without angina pectoris (6) Diabetes mellitus type 2 in nonobese Code(s): E11.9 - TYPE 2 DIABETES MELLITUS WITHOUT COMPLICATIONS Status: Chronic Comment: uncontrolled (7) Hypertension Code(s): I10 - ESSENTIAL (PRIMARY) HYPERTENSION Status: Chronic Qualifiers: Hypertension type: essential hypertension Qualified Code(s): I10 - Essential (primary) hypertension Comment: uncontrolled (8) Physical deconditioning Code(s): R53.81 - OTHER [place] Status: Acute - Plan htn and dm are slowing getting controlled -: is awaiting placement -: may dc anytime placement is ready -: increase levemir to 15u bid -: is off clonidine from yesterday due to increased lethargy/sleepiness * . Review of Systems - Medications/Allergies Allergies/Adverse Reactions: Allergies Allergy/AdvReac Type Severity Reaction Status Date / Time No Known Allergies Allergy Verified 02/18/15 19:53 Medications: Current Medications Acetaminophen (Tylenol) 1,000 mg PO Q6H PRN PRN Reason: Moderate to Severe Pain (6-10) Last Admin: 10/10/17 04:00 Dose: 1,000 mg Albuterol/Ipratropium (Duoneb) 3 ml NEB Q4H PRN PRN Reason: Wheezing Aspirin (Ecotrin) 81 mg PO DAILY [facility] Atorvastatin Calcium (Lipitor) 40 mg PO HS [facility] Last Admin: 10/10/17 21:16 Dose: 40 mg Carvedilol (Coreg) 25 mg PO BID-WM [facility] Last Admin: 10/11/17 08:30 Dose: 25 mg Dextrose/Water (Dextrose 50%) 25 gm SLOW IVP PRN PRN PRN Reason: Hypoglycemia Epoetin Efren (Procrit) 7,500 units SC Q7D [facility] Last Admin: 10/10/17 22:03 Dose: Not Given Famotidine (Pepcid) 20 mg PO DAILY [facility] Last Admin: 10/11/17 09:11 Dose: 20 mg Glucagon (Glucagon) 1 mg IM PRN PRN PRN Reason: Hypoglycemia Hydralazine HCl (Apresoline) 10 mg SLOW IVP Q4H PRN PRN Reason: SBP > 170 or DBP > 100 Last Admin: 10/09/17 09:45 Dose: 10 mg Hydralazine HCl (Apresoline) 50 mg PO TID [facility] Last Admin: 10/11/17 09:11 Dose: 50 mg Dextrose/Water (D5w) 1,000 mls @ 0 mls/hr IV .Q0M PRN; As Directed PRN Reason: Hypoglycemia Insulin Detemir 15 units/ (Miscellaneous Medication) 0.15 mls @ 0 mls/hr SC BID [facility] Insulin Human Lispro (Humalog) 0 units SC .MODERATE SLIDING SC PRN PRN Reason: Moderate Correctional Scale Last Admin: 10/10/17 16:15 Dose: 4 units Isosorbide Mononitrate (Imdur Er) 30 mg PO DAILY [facility] Last Admin: 10/11/17 09:12 Dose: 30 mg Labetalol HCl (Normodyne) 20 mg SLOW IVP Q15MIN PRN PRN Reason: FOR SBP > 180 Last Admin: 09/28/17 06:25 Dose: 20 mg Nifedipine (Procardia Xl) 90 mg PO DAILY [facility] Last Admin: 10/11/17 09:12 Dose: 90 mg Ondansetron HCl (Zofran) 4 mg IVP Q6H PRN PRN Reason: Nausea/Vomiting Last Admin: 10/09/17 11:40 Dose: 4 mg Promethazine HCl (Phenergan) 12.5 mg IM Q4H PRN PRN Reason: Nausea/Vomiting Last Admin: 10/09/17 14:53 Dose: 12.5 mg Sodium Chloride (Flush - Normal Saline) 10 ml IVF PRN PRN PRN Reason: Saline Flush Last Admin: 10/06/17 21:11 Dose: 10 ml
[2017-10-11] MEDS: Acetaminophen 500 MG TAB PO PRN (12:21)
[2017-10-11] MEDS: traMADol HCl 50 MG TAB PO PRN (16:42)
[2017-10-11] MEDS: HumaLOG 300 UNITS/3 ML VIAL SC PRN (16:50)
[2017-10-11] MEDS ORDERED: Insulin Detemir 100 UNITS/ML 15 UNITS in Pre-Filled Syringe 1 EACH SC SCH (21:00)
[2017-10-11] MEDS: Atorvastatin Calcium 40 MG TAB PO SCH (21:48)
[2017-10-12] MEDS: Carvedilol 25 MG TAB PO SCH ×2 (09:00→16:49)
[2017-10-12] MEDS ORDERED: Heparin 10,000 UNITS/ 10 ML VIAL ONE (10:00)
--- NOTE | 2017-10-12 10:08 | PDOC.PN ---
- Subjective Encounter Start Date: 10/12/17 Encounter Start Time: 09:00 Subjective: getting HD now -: no sob - Objective Resuscitation Status: Resuscitation Status FULL:Full Resuscitation MAR Reviewed: Yes Vital Signs & Weight: Weight Admit Weight 202 lb 14.4 oz Weight 213 lb 3.2 oz Most Recent Monitor Data Heart Rate from ECG 74 NIBP 134/70 NIBP BP-Mean 83 Respiration from ECG 15 SpO2 93 I&O: 10/11/17 10/12/17 10/13/17 06:59 06:59 06:59 Intake Total 1210 2000 Output Total 1500 Balance 1210 500 Result Diagrams: 10/10/17 07:42 10/10/17 07:42 Additional Labs: Accuchecks 10/12/17 10/12/17 10/11/17 08:48 06:21 19:54 POC Glucose 174 H 316 H 271 H 10/11/17 10/11/17 16:46 10:58 POC Glucose 399 H 191 H Phys Exam - Physical Examination HEENT: PERRLA, moist MMs Neck: no JVD, supple Respiratory: no wheezing, no rales Cardiovascular: RRR, no significant murmur Gastrointestinal: soft, no distention, positive bowel sounds Musculoskeletal: no edema, pulses present Neurological: non-focal, moves all 4 limbs Psychiatric: A&O x 3 Dx/Plan (1) Adenocarcinoma, colon Code(s): C18.9 - MALIGNANT NEOPLASM OF COLON, UNSPECIFIED Status: Resolved Comment: s/p left hemicolectomy, LN negative, adenoCA on path. margins negative. Onc consult per gen surg advice (2) ESRD (end stage renal disease) on dialysis Code(s): N18.6 - END STAGE RENAL DISEASE; Z99.2 - DEPENDENCE ON RENAL DIALYSIS Status: Acute (3) Anemia due to blood loss, acute Code(s): D62 - ACUTE POSTHEMORRHAGIC ANEMIA Status: Acute (4) Cocaine abuse Code(s): F14.10 - COCAINE ABUSE, UNCOMPLICATED Status: Chronic (5) Coronary artery disease Code(s): I25.10 - ATHSCL HEART DISEASE OF [place] CORONARY ARTERY W/O ANG PCTRS Status: Chronic Qualifiers: Coronary Disease-Associated Artery/Lesion type: [place] artery [place] vs. transplanted heart: [place] heart Associated angina: without angina Qualified Code(s): I25.10 - Atherosclerotic heart disease of [place] coronary artery without angina pectoris (6) Diabetes mellitus type 2 in nonobese Code(s): E11.9 - TYPE 2 DIABETES MELLITUS WITHOUT COMPLICATIONS Status: Chronic Comment: uncontrolled (7) Hypertension Code(s): I10 - ESSENTIAL (PRIMARY) HYPERTENSION Status: Chronic Qualifiers: Hypertension type: essential hypertension Qualified Code(s): I10 - Essential (primary) hypertension Comment: uncontrolled (8) Physical deconditioning Code(s): R53.81 - OTHER MALAISE Status: Acute - Plan increase levemir to 20u bid -: awaiting placement, may dc anytime if placement is ready -: needs outpt HD chair -: 1800kcal ada, renal and heart healthy diet * . Review of Systems - Medications/Allergies Allergies/Adverse Reactions: Allergies Allergy/AdvReac Type Severity Reaction Status Date / Time No Known Allergies Allergy Verified 02/18/15 19:53 Medications: Current Medications Acetaminophen (Tylenol) 1,000 mg PO Q6H PRN PRN Reason: Moderate to Severe Pain (6-10) Last Admin: 10/11/17 12:21 Dose: 1,000 mg Albuterol/Ipratropium (Duoneb) 3 ml NEB Q4H PRN PRN Reason: Wheezing Aspirin (Ecotrin) 81 mg PO DAILY [facility] Atorvastatin Calcium (Lipitor) 40 mg PO HS [facility] Last Admin: 10/11/17 21:48 Dose: 40 mg Carvedilol (Coreg) 25 mg PO BID-WM [facility] Last Admin: 10/11/17 16:42 Dose: 25 mg Dextrose/Water (Dextrose 50%) 25 gm SLOW IVP PRN PRN PRN Reason: Hypoglycemia Epoetin Efren (Procrit) 7,500 units SC Q7D [facility] Last Admin: 10/10/17 22:03 Dose: Not Given Famotidine (Pepcid) 20 mg PO DAILY [facility] Last Admin: 10/11/17 09:11 Dose: 20 mg Glucagon (Glucagon) 1 mg IM PRN PRN PRN Reason: Hypoglycemia Hydralazine HCl (Apresoline) 10 mg SLOW IVP Q4H PRN PRN Reason: SBP > 170 or DBP > 100 Last Admin: 10/09/17 09:45 Dose: 10 mg Hydralazine HCl (Apresoline) 50 mg PO TID [facility] Last Admin: 10/11/17 21:48 Dose: 50 mg Dextrose/Water (D5w) 1,000 mls @ 0 mls/hr IV .Q0M PRN; As Directed PRN Reason: Hypoglycemia Insulin Detemir 20 units/ (Miscellaneous Medication) 0.2 mls @ 0 mls/hr SC BID [facility] Insulin Human Lispro (Humalog) 0 units SC .MODERATE SLIDING SC PRN PRN Reason: Moderate Correctional Scale Last Admin: 10/11/17 16:50 Dose: 10 units Isosorbide Mononitrate (Imdur Er) 30 mg PO DAILY [facility] Last Admin: 10/11/17 09:12 Dose: 30 mg Labetalol HCl (Normodyne) 20 mg SLOW IVP Q15MIN PRN PRN Reason: FOR SBP > 180 Last Admin: 09/28/17 06:25 Dose: 20 mg Nifedipine (Procardia Xl) 90 mg PO DAILY [facility] Last Admin: 10/11/17 09:12 Dose: 90 mg Ondansetron HCl (Zofran) 4 mg IVP Q6H PRN PRN Reason: Nausea/Vomiting Last Admin: 10/09/17 11:40 Dose: 4 mg Promethazine HCl (Phenergan) 12.5 mg IM Q4H PRN PRN Reason: Nausea/Vomiting Last Admin: 10/09/17 14:53 Dose: 12.5 mg Sodium Chloride (Flush - Normal Saline) 10 ml IVF PRN PRN PRN Reason: Saline Flush Last Admin: 10/06/17 21:11 Dose: 10 ml Tramadol HCl (Ultram) 50 mg PO Q6H PRN PRN Reason: Mild-Moderate Pain (1-5) Last Admin: 10/11/17 16:42 Dose: 50 mg
[2017-10-12] MEDS: NIFEdipine XL 90 MG TAB PO SCH (11:54)
[2017-10-12] MEDS: Aspirin 81 mg Enteric Coated Tablet PO SCH (11:55)
[2017-10-12] MEDS: Insulin Detemir 100 UNITS/ML 20 UNITS in Pre-Filled Syringe 1 EACH SC SCH ×2 (11:56→20:29)
[2017-10-12] MEDS: Famotidine 20 MG TAB PO SCH (11:56)
[2017-10-12] MEDS: hydrALAZINE 25 MG TAB PO SCH ×3 (11:56→20:28)
[2017-10-12] MEDS: traMADol HCl 50 MG TAB PO PRN ×2 (12:00→18:26)
[2017-10-12] MEDS: HumaLOG 300 UNITS/3 ML VIAL SC PRN (16:49)
--- NOTE | 2017-10-12 19:46 | PRG ---
DATE OF SERVICE: 10/12/2017 SUBJECTIVE: The patient was seen and examined with no new complaint, did tolerate dialysis very well today, hemodynamically stable. OBJECTIVE: HEENT: Unremarkable with moist oral mucosa. No conjunctival injection or icterus. NECK: Supple. CARDIOVASCULAR SYSTEM: First and second heart sounds were heard. RESPIRATORY SYSTEM: Clear to auscultation. DIGESTIVE SYSTEM: Revealed a benign abdomen with positive bowel sounds. EXTREMITIES: No peripheral edema. SKIN: No new gross rash. LYMPHATICS: No peripheral lymphadenopathy. IMPRESSION: 1. End-stage renal disease, hemodialysis dependent. 2. Hypertension. 3. Colonic mass, status post resection. PLAN: 1. We will reevaluate this patient's renal function vis-a-vis the possibility of renal function comi ng to the point of not requiring renal replacement therapy right away. 2. We will ensure the patient has a long-term outpatient dialysis access in the way of fistula graft . 3. Further management to be dependent on the clinical course.
[2017-10-12] MEDS: Atorvastatin Calcium 40 MG TAB PO SCH (20:29)
[2017-10-13 06:04] LABS: Albumin 3.4 g/dL (3.5-5.0); Anion Gap 15 mmol/L (10-20); BUN (Urea Nitrogen) 23 mg/dL (8.4-25.7); Calc. Creatinine Clearance 40 mL/min (70-130); Calcium 8.5 mg/dL (7.8-10.44); Carbon Dioxide 27 mmol/L (22-29); Chloride 94 mmol/L (98-107); Estimated GFR-MDRD 28; Glucose 172 mg/dL (70-105); Phosphorus 3.1 mg/dL (2.3-4.7); Potassium 4.6 mmol/L (3.5-5.1); Sodium 131 mmol/L (136-145)
--- NOTE | 2017-10-13 07:35 | PRG ---
DATE OF SERVICE: 10/13/2017 The patient was seen and examined with no new complaints. PHYSICAL EXAMINATION: VITAL SIGNS: Afebrile with temperature 98, pulse 73, respiratory rate 18, O2 saturation 98% with a b lood pressure 144/79. HEENT: Unremarkable. CARDIOVASCULAR SYSTEM: First and second heart sounds were heard. RESPIRATORY SYSTEM: Clear to auscultation. DIGESTIVE SYSTEM: Revealed a benign abdomen with positive bowel sounds. EXTREMITIES: No peripheral edema. SKIN: No new gross rash. LYMPHATICS: No peripheral lymphadenopathy. IMPRESSION: 1. Advanced chronic kidney disease, query some degree of recovery. 2. Hyponatremia. 3. Hypertension, much improved. 4. Colonic carcinoma, status post resection. PLAN: 1. Currently working on securing a permanent access in the way of fistula. I have already contacted the access surgeon to that effect. 2. If patient does show significant evidence of renal recovery may likely put hemodialysis on hold w hile monitoring the renal function closely. 3. Further management will be dependent on the clinical course. We will continue to monitor the eric al function using renal function panel, most likely will hold dialysis tomorrow.
[2017-10-13] MEDS: Carvedilol 25 MG TAB PO SCH ×2 (08:10→17:35)
--- NOTE | 2017-10-13 09:03 | ULT ---
VEIN MAPPING: HISTORY: Dialysis access. COMPARISON: 09/26/2017 TECHNIQUE: Lafleur-scale, color-flow, and Doppler imaging with spectral wave-form analysis was performed of the lef t and right lower extremity venous system. FINDINGS: RIGHT UPPER EXTREMITY BRACHIAL ARTERY: 4.8 mm RADIAL ARTERY: 2.7 mm ULNAR ARTERY: 2.7 mm CEPHALIC VEIN PROXIMAL HUMERUS: 1.2 mm MID HUMERUS: 1.2 mm DISTAL HUMERUS: 1.2 mm ANTECUBITAL FOSSA: Clot FOREARM: Clot BASILIC VEIN PROXIMAL HUMERUS: 1.6 mm MID HUMERUS: 1.9 mm DISTAL HUMERUS: 2.3 mm ANTECUBITAL FOSSA: 2.1 mm PROXIMAL FOREARM: 0.8 mm MID FOREARM 0.7 mm DISTAL FOREARM 0.5 mm LEFT UPPER EXTREMITY BRACHIAL ARTERY: 4.9 mm RADIAL ARTERY: 3.4 mm ULNAR ARTERY: 2.8 mm CEPHALIC VEIN PROXIMAL HUMERUS: 2.4 mm MID HUMERUS: 2.0 mm DISTAL HUMERUS: 2.0 mm ANTECUBITAL FOSSA: 2.2 mm PROXIMAL FOREARM: 0.8 mm MID FOREARM 0.7 mm DISTAL FOREARM 1.0 mm BASILIC VEIN PROXIMAL HUMERUS: 3.5 mm MID HUMERUS: 2.5 mm DISTAL HUMERUS: 1.8 mm ANTECUBITAL FOSSA: 2.4 mm PROXIMAL FOREARM: 0.8 mm MID FOREARM 0.6 mm DISTAL FOREARM 0.6 mm IMPRESSION: Vascular mapping as above. There is clot in the right upper extremity cephalic vein, starting at the antecubital fossa, extending into the forearm. POS: [facility]
[2017-10-13] MEDS: NIFEdipine XL 90 MG TAB PO SCH (10:14)
[2017-10-13] MEDS: Insulin Detemir 100 UNITS/ML 20 UNITS in Pre-Filled Syringe 1 EACH SC SCH ×2 (10:14→20:58)
[2017-10-13] MEDS: hydrALAZINE 25 MG TAB PO SCH ×3 (10:14→20:58)
[2017-10-13] MEDS: Aspirin 81 mg Enteric Coated Tablet PO SCH (10:14)
[2017-10-13] MEDS: Famotidine 20 MG TAB PO SCH (10:14)
--- NOTE | 2017-10-13 10:37 | PDOC.PN ---
- Subjective Encounter Start Date: 10/13/17 Encounter Start Time: 10:25 Subjective: feels better, is amb in room -: no sob - Objective Resuscitation Status: Resuscitation Status FULL:Full Resuscitation MAR Reviewed: Yes Vital Signs & Weight: Vital Signs (12 hours) Temp Pulse Resp BP BP Pulse Ox 10/13/17 10:14 77 10/13/17 08:00 98.1 F 77 18 159/85 H 98 10/13/17 04:55 98 F 73 18 144/79 H 98 10/12/17 23:45 98.6 F 79 18 126/61 98 Weight Admit Weight 202 lb 14.4 oz Weight 213 lb 3.2 oz Most Recent Monitor Data Heart Rate from ECG 74 NIBP 134/70 NIBP BP-Mean 83 Respiration from ECG 15 SpO2 93 I&O: 10/12/17 10/13/17 10/14/17 06:59 06:59 06:59 Intake Total 2000 450 Output Total 1500 Balance 500 450 Result Diagrams: 10/10/17 07:42 10/13/17 05:02 Additional Labs: Accuchecks 10/13/17 10/12/17 10/12/17 06:18 20:27 16:09 POC Glucose 132 H 149 H 340 H 10/12/17 11:52 POC Glucose 128 H Phys Exam - Physical Examination HEENT: PERRLA, moist MMs Neck: no JVD, supple Respiratory: no wheezing, no rales Cardiovascular: RRR, no significant murmur Gastrointestinal: soft, non-tender, positive bowel sounds surgical scar is healthy Musculoskeletal: no edema, pulses present Neurological: non-focal, moves all 4 limbs Psychiatric: A&O x 3 Dx/Plan (1) Adenocarcinoma, colon Code(s): C18.9 - MALIGNANT NEOPLASM OF COLON, UNSPECIFIED Status: Resolved Comment: s/p left hemicolectomy, LN negative, adenoCA on path. margins negative. Onc consult per gen surg advice (2) ESRD (end stage renal disease) on dialysis Code(s): N18.6 - END STAGE RENAL DISEASE; Z99.2 - DEPENDENCE ON RENAL DIALYSIS Status: Acute (3) Anemia due to blood loss, acute Code(s): D62 - ACUTE POSTHEMORRHAGIC ANEMIA Status: Acute Comment: stable (4) Cocaine abuse Code(s): F14.10 - COCAINE ABUSE, UNCOMPLICATED Status: Chronic (5) Coronary artery disease Code(s): I25.10 - ATHSCL HEART DISEASE OF [place] CORONARY ARTERY W/O ANG PCTRS Status: Chronic Qualifiers: Coronary Disease-Associated Artery/Lesion type: [place] artery [place] vs. transplanted heart: [place] heart Associated angina: without angina Qualified Code(s): I25.10 - Atherosclerotic heart disease of [place] coronary artery without angina pectoris (6) Diabetes mellitus type 2 in nonobese Code(s): E11.9 - TYPE 2 DIABETES MELLITUS WITHOUT COMPLICATIONS Status: Chronic Comment: uncontrolled (7) Hypertension Code(s): I10 - ESSENTIAL (PRIMARY) HYPERTENSION Status: Chronic Qualifiers: Hypertension type: essential hypertension Qualified Code(s): I10 - Essential (primary) hypertension Comment: uncontrolled (8) Physical deconditioning Code(s): R53.81 - OTHER MALAISE Status: Acute - Plan has outpt HD chair -: is going for tunneled HD cath and fistula today -: awaiting placement -: may dc anytime if placement is ready * . Review of Systems - Medications/Allergies Allergies/Adverse Reactions: Allergies Allergy/AdvReac Type Severity Reaction Status Date / Time No Known Allergies Allergy Verified 02/18/15 19:53 Medications: Current Medications Acetaminophen (Tylenol) 1,000 mg PO Q6H PRN PRN Reason: Moderate to Severe Pain (6-10) Last Admin: 10/11/17 12:21 Dose: 1,000 mg Albuterol/Ipratropium (Duoneb) 3 ml NEB Q4H PRN PRN Reason: Wheezing Aspirin (Ecotrin) 81 mg PO DAILY [facility] Last Admin: 10/13/17 10:14 Dose: Not Given Atorvastatin Calcium (Lipitor) 40 mg PO HS [facility] Last Admin: 10/12/17 20:29 Dose: 40 mg Carvedilol (Coreg) 25 mg PO BID-WM [facility] Last Admin: 10/13/17 08:10 Dose: 25 mg Dextrose/Water (Dextrose 50%) 25 gm SLOW IVP PRN PRN PRN Reason: Hypoglycemia Epoetin Efren (Procrit) 7,500 units SC Q7D [facility] Last Admin: 10/10/17 22:03 Dose: Not Given Famotidine (Pepcid) 20 mg PO DAILY [facility] Last Admin: 10/13/17 10:14 Dose: Not Given Glucagon (Glucagon) 1 mg IM PRN PRN PRN Reason: Hypoglycemia Hydralazine HCl (Apresoline) 10 mg SLOW IVP Q4H PRN PRN Reason: SBP > 170 or DBP > 100 Last Admin: 10/09/17 09:45 Dose: 10 mg Hydralazine HCl (Apresoline) 50 mg PO TID [facility] Last Admin: 10/13/17 10:14 Dose: Not Given Dextrose/Water (D5w) 1,000 mls @ 0 mls/hr IV .Q0M PRN; As Directed PRN Reason: Hypoglycemia Insulin Detemir 20 units/ (Miscellaneous Medication) 0.2 mls @ 0 mls/hr SC BID [facility] Last Admin: 10/13/17 10:14 Dose: Not Given Insulin Human Lispro (Humalog) 0 units SC .MODERATE SLIDING SC PRN PRN Reason: Moderate Correctional Scale Last Admin: 10/12/17 16:49 Dose: 8 units Isosorbide Mononitrate (Imdur Er) 30 mg PO DAILY [facility] Last Admin: 10/13/17 10:14 Dose: Not Given Labetalol HCl (Normodyne) 20 mg SLOW IVP Q15MIN PRN PRN Reason: FOR SBP > 180 Last Admin: 09/28/17 06:25 Dose: 20 mg Nifedipine (Procardia Xl) 90 mg PO DAILY [facility] Last Admin: 10/13/17 10:14 Dose: Not Given Ondansetron HCl (Zofran) 4 mg IVP Q6H PRN PRN Reason: Nausea/Vomiting Last Admin: 10/09/17 11:40 Dose: 4 mg Promethazine HCl (Phenergan) 12.5 mg IM Q4H PRN PRN Reason: Nausea/Vomiting Last Admin: 10/09/17 14:53 Dose: 12.5 mg Sodium Chloride (Flush - Normal Saline) 10 ml IVF PRN PRN PRN Reason: Saline Flush Last Admin: 10/06/17 21:11 Dose: 10 ml Tramadol HCl (Ultram) 50 mg PO Q6H PRN PRN Reason: Mild-Moderate Pain (1-5) Last Admin: 10/12/17 18:26 Dose: 50 mg
[2017-10-13] MEDS ORDERED: CEFAZOLIN/Water 2 GM/20 ML SYRINGE SLOW IVP SCH (14:45)
[2017-10-13] MEDS: Atorvastatin Calcium 40 MG TAB PO SCH (20:57)
[2017-10-14] MEDS: Promethazine HCl 25 MG/ML VIAL IM PRN (05:06)
[2017-10-14] MEDS: traMADol HCl 50 MG TAB PO PRN (05:06)
[2017-10-14 05:56] LABS: Albumin 3.7 g/dL (3.5-5.0); Anion Gap 17 mmol/L (10-20); BUN (Urea Nitrogen) 30 mg/dL (8.4-25.7); BUN/Creatinine Ratio 10.14; Calc. Creatinine Clearance 38 mL/min (70-130); Calcium 9.3 mg/dL (7.8-10.44); Carbon Dioxide 22 mmol/L (22-29); Chloride 98 mmol/L (98-107); Estimated GFR-MDRD 27; Glucose 216 mg/dL (70-105); Phosphorus 3.2 mg/dL (2.3-4.7); Potassium 4.7 mmol/L (3.5-5.1); Sodium 132 mmol/L (136-145)
[2017-10-14] MEDS: hydrALAZINE 25 MG TAB PO SCH ×3 (07:48→22:43)
[2017-10-14] MEDS: Famotidine 20 MG TAB PO SCH (07:48)
[2017-10-14] MEDS: NIFEdipine XL 90 MG TAB PO SCH (07:49)
[2017-10-14] MEDS: Carvedilol 25 MG TAB PO SCH ×2 (07:49→19:32)
[2017-10-14] MEDS: Insulin Detemir 100 UNITS/ML 20 UNITS in Pre-Filled Syringe 1 EACH SC SCH ×2 (07:51→22:43)
[2017-10-14] MEDS: Aspirin 81 mg Enteric Coated Tablet PO SCH (07:51)
[2017-10-14 08:39] LABS: #Eosinphils 0.8 thou/uL (0.0-0.7); #Lymphocytes 1.2 thou/uL (1.20-3.40); #Monocytes 0.6 thou/uL (0.11-0.59); %Basophils 0.1 % (0.0-1.0); %Eosinophils 5.1 % (0.0-10.0); %Lymphocytes 7.9 % (21.0-51.0); %Monocytes 3.7 % (0.0-10.0); %Neutrophils 83.2 % (42.0-75.0); Hemoglobin 8.7 g/dL (14.0-18.0); Mean Corpuscular HGB CONC 32.7 g/dL (32.0-36.0); Mean Corpuscular Hemoglobin 28.6 pg (27.0-31.0); Mean Corpuscular Volume 87.4 fl (80.0-94.0); Mean Platelet Volume 7.4 fL (7.4-10.4); Platelet Count 323 thou/uL (130-400); RBC Distribution Width 14.7 % (11.5-14.5); Red Blood Cell (RBC) Count 3.03 mill/uL (4.70-6.10); White Blood Cell (WBC) Count 15.6 thou/uL (4.8-10.8)
[2017-10-14 08:54] LABS: Anion Gap 13 mmol/L (10-20); BUN (Urea Nitrogen) 28 mg/dL (8.4-25.7); Calc. Creatinine Clearance 39 mL/min (70-130); Calcium 9.5 mg/dL (7.8-10.44); Carbon Dioxide 27 mmol/L (22-29); Chloride 98 mmol/L (98-107); Estimated GFR-MDRD 28; Glucose 190 mg/dL (70-105); Potassium 4.4 mmol/L (3.5-5.1); Sodium 134 mmol/L (136-145)
[2017-10-14] MEDS ORDERED: Minoxidil 10 MG TAB PO SCH (09:45)
--- NOTE | 2017-10-14 09:49 | PDOC.PN ---
- Subjective Encounter Start Date: 10/14/17 Encounter Start Time: 09:30 Subjective: is hungry wants to eat -: his surgery for fistula was cancelled due to high BP -: no chest pain or palp or sob - Objective Resuscitation Status: Resuscitation Status FULL:Full Resuscitation MAR Reviewed: Yes Vital Signs & Weight: Vital Signs (12 hours) Temp Pulse Resp BP BP Pulse Ox 10/14/17 07:49 91 225/115 H 10/14/17 07:48 91 225/115 H 10/14/17 07:40 97.4 F L 90 18 225/115 H 91 L Weight Admit Weight 202 lb 14.4 oz Weight 210 lb 5.136 oz Most Recent Monitor Data Heart Rate from ECG 74 NIBP 134/70 NIBP BP-Mean 83 Respiration from ECG 15 SpO2 93 I&O: 10/13/17 10/14/17 10/15/17 06:59 06:59 06:59 Intake Total 450 750 Output Total 950 Balance 450 -200 Result Diagrams: 10/14/17 08:25 10/14/17 08:25 Additional Labs: Accuchecks 10/14/17 10/13/17 10/13/17 05:04 20:43 16:17 POC Glucose 246 H 207 H 210 H 10/13/17 11:35 POC Glucose 85 Phys Exam - Physical Examination HEENT: PERRLA, moist MMs Neck: no JVD, supple Respiratory: no wheezing, no rales Cardiovascular: RRR, no significant murmur Gastrointestinal: soft, non-tender, no distention, positive bowel sounds Musculoskeletal: no edema, pulses present Neurological: non-focal, moves all 4 limbs Psychiatric: A&O x 3 Dx/Plan (1) Adenocarcinoma, colon Code(s): C18.9 - MALIGNANT NEOPLASM OF COLON, UNSPECIFIED Status: Resolved Comment: s/p left hemicolectomy, LN negative, adenoCA on path. margins negative. Onc consult per gen surg advice (2) ESRD (end stage renal disease) on dialysis Code(s): N18.6 - END STAGE RENAL DISEASE; Z99.2 - DEPENDENCE ON RENAL DIALYSIS Status: Acute (3) Anemia due to blood loss, acute Code(s): D62 - ACUTE POSTHEMORRHAGIC ANEMIA Status: Acute Comment: stable (4) Cocaine abuse Code(s): F14.10 - COCAINE ABUSE, UNCOMPLICATED Status: Chronic (5) Coronary artery disease Code(s): I25.10 - ATHSCL HEART DISEASE OF [place] CORONARY ARTERY W/O ANG PCTRS Status: Chronic Qualifiers: Coronary Disease-Associated Artery/Lesion type: [place] artery [place] vs. transplanted heart: [place] heart Associated angina: without angina Qualified Code(s): I25.10 - Atherosclerotic heart disease of [place] coronary artery without angina pectoris (6) Diabetes mellitus type 2 in nonobese Code(s): E11.9 - TYPE 2 DIABETES MELLITUS WITHOUT COMPLICATIONS Status: Chronic Comment: uncontrolled (7) Hypertension Code(s): I10 - ESSENTIAL (PRIMARY) HYPERTENSION Status: Chronic Qualifiers: Hypertension type: essential hypertension Qualified Code(s): I10 - Essential (primary) hypertension Comment: uncontrolled (8) Physical deconditioning Code(s): R53.81 - OTHER MALAISE Status: Acute - Plan increase hydralazine to 75mg tid -: add minoxidil daily -: d/w , ?HD/hold to see if his kidney's start working -: for fistula in am, if sbp is still high in am, will need HD prior to placin -: -g fistula to reduce volume * . Review of Systems - Medications/Allergies Allergies/Adverse Reactions: Allergies Allergy/AdvReac Type Severity Reaction Status Date / Time No Known Allergies Allergy Verified 02/18/15 19:53 Medications: Current Medications Acetaminophen (Tylenol) 1,000 mg PO Q6H PRN PRN Reason: Moderate to Severe Pain (6-10) Last Admin: 10/11/17 12:21 Dose: 1,000 mg Albuterol/Ipratropium (Duoneb) 3 ml NEB Q4H PRN PRN Reason: Wheezing Aspirin (Ecotrin) 81 mg PO DAILY [facility] Last Admin: 10/14/17 07:51 Dose: Not Given Atorvastatin Calcium (Lipitor) 40 mg PO HS [facility] Last Admin: 10/13/17 20:57 Dose: 40 mg Carvedilol (Coreg) 25 mg PO BID-WM [facility] Last Admin: 10/14/17 07:49 Dose: 25 mg Cefazolin Sodium (Ancef) 2 gm SLOW IVP WILLCALL [facility] Stop: 10/14/17 12:00 Dextrose/Water (Dextrose 50%) 25 gm SLOW IVP PRN PRN PRN Reason: Hypoglycemia Epoetin Efren (Procrit) 7,500 units SC Q7D [facility] Last Admin: 10/10/17 22:03 Dose: Not Given Famotidine (Pepcid) 20 mg PO DAILY [facility] Last Admin: 10/14/17 07:48 Dose: 20 mg Glucagon (Glucagon) 1 mg IM PRN PRN PRN Reason: Hypoglycemia Hydralazine HCl (Apresoline) 75 mg PO TID [facility] Dextrose/Water (D5w) 1,000 mls @ 0 mls/hr IV .Q0M PRN; As Directed PRN Reason: Hypoglycemia Insulin Detemir 20 units/ (Miscellaneous Medication) 0.2 mls @ 0 mls/hr SC BID [facility] Last Admin: 10/14/17 07:51 Dose: Not Given Insulin Human Lispro (Humalog) 0 units SC .MODERATE SLIDING SC PRN PRN Reason: Moderate Correctional Scale Last Admin: 10/12/17 16:49 Dose: 8 units Isosorbide Mononitrate (Imdur Er) 30 mg PO DAILY [facility] Last Admin: 10/14/17 07:48 Dose: 30 mg Labetalol HCl (Normodyne) 20 mg SLOW IVP Q15MIN PRN PRN Reason: FOR SBP > 180 Last Admin: 09/28/17 06:25 Dose: 20 mg Minoxidil (Minoxidil) 10 mg PO DAILY [facility] Minoxidil (Minoxidil) 10 mg PO ONE [facility] Nifedipine (Procardia Xl) 90 mg PO DAILY [facility] Last Admin: 10/14/17 07:49 Dose: 90 mg Ondansetron HCl (Zofran) 4 mg IVP Q6H PRN PRN Reason: Nausea/Vomiting Last Admin: 10/09/17 11:40 Dose: 4 mg Promethazine HCl (Phenergan) 12.5 mg IM Q4H PRN PRN Reason: Nausea/Vomiting Last Admin: 10/14/17 05:06 Dose: 12.5 mg Sodium Chloride (Flush - Normal Saline) 10 ml IVF PRN PRN PRN Reason: Saline Flush Last Admin: 10/06/17 21:11 Dose: 10 ml Tramadol HCl (Ultram) 50 mg PO Q6H PRN PRN Reason: Mild-Moderate Pain (1-5) Last Admin: 10/14/17 05:06 Dose: 50 mg
[2017-10-14] MEDS: HumaLOG 300 UNITS/3 ML VIAL SC PRN (13:10)
[2017-10-14] MEDS: Minoxidil 10 MG TAB PO SCH (13:17)
[2017-10-14] MEDS: Acetaminophen 500 MG TAB PO PRN (19:31)
--- NOTE | 2017-10-14 22:05 | PRG ---
DATE OF SERVICE: 10/14/2017 SUBJECTIVE: The patient was seen and examined, should have undergone surgical placement of fistula t blanca; however, the patient was nauseated and severely hypertensive with systolic blood pressure above 200, thus cancellation of the surgery. Otherwise, at this time of dictation, the patient's vitals m uch improved. PHYSICAL EXAMINATION: VITAL SIGNS: Afebrile with a blood pressure 152/79, pulse 91, respiratory rate 20, O2 sat 97%. HEENT EXAMINATION: Unremarkable. Moist oral mucosa. Neck is supple. No conjunctival injection or icterus. CARDIOVASCULAR: First and second heart sounds were heard. RESPIRATORY: Clear to auscultation. DIGESTIVE: Revealed a benign abdomen with positive bowel sounds. EXTREMITIES: No peripheral edema. SKIN: No new gross rash. LYMPHATICS: No peripheral lymphadenopathy. IMPRESSION: 1. Advanced chronic kidney disease. 2. Hypertension, labile. 3. Colonic carcinoma, status post resection. PLAN: 1. The patient to eventually secure long-term dialysis access tomorrow. 2. Adjust antihypertensive to optimize hemodynamics. 3. Further management will be dependent on the clinical course.
[2017-10-14] MEDS: Atorvastatin Calcium 40 MG TAB PO SCH (22:42)
[2017-10-15] MEDS: Carvedilol 25 MG TAB PO SCH ×2 (05:56→18:01)
[2017-10-15] MEDS: HumaLOG 300 UNITS/3 ML VIAL SC PRN ×2 (05:57→22:14)
[2017-10-15 06:12] LABS: Albumin 3.5 g/dL (3.5-5.0); Anion Gap 14 mmol/L (10-20); BUN (Urea Nitrogen) 22 mg/dL (8.4-25.7); Calc. Creatinine Clearance 40 mL/min (70-130); Calcium 9.1 mg/dL (7.8-10.44); Carbon Dioxide 26 mmol/L (22-29); Chloride 99 mmol/L (98-107); Estimated GFR-MDRD 28; Glucose 374 mg/dL (70-105); Phosphorus 2.6 mg/dL (2.3-4.7); Potassium 4.8 mmol/L (3.5-5.1); Sodium 134 mmol/L (136-145)
[2017-10-15] MEDS: hydrALAZINE 25 MG TAB PO SCH ×3 (07:50→22:13)
[2017-10-15] MEDS ORDERED: Lidocaine 2% PF 5 ML VIAL ONE (08:57)
[2017-10-15] MEDS ORDERED: Heparin 5,000 UNITS/ML VIAL ONE (08:57)
[2017-10-15] MEDS ORDERED: Protamine Sulfate 50 MG/5 ML VIAL ONE (08:57)
[2017-10-15] MEDS ORDERED: Bupivacaine/Epinephrine 0.25% 30 ML VIAL ONE (08:57)
--- NOTE | 2017-10-15 09:30 | CON ---
DATE OF CONSULTATION: 10/15/2017 REASON FOR CONSULTATION: Colon cancer. HISTORY OF PRESENT ILLNESS: Mr. Loo is a 57-year-old -[place] male who was hospitalized on 09/13/2017 with GI bleed. He had a prior workup, which showed a malignant mass, but he declined autumn yossi at that time. He did on this admission have a colectomy. The pathology showed a 5 cm low grade adenocarcinoma. He had 21 lymph nodes uninvolved by metastatic carcinoma. All of his margins were negative. There were some mild features suggestive of microsatellite instability. He was pathologic T3, N0, M0. Over the course of this hospital stay, he progressed to renal failure and is currently on dialysis. He is to have a correction dialysis access today. He remains in this facility while he awaits placement. PAST MEDICAL HISTORY: 1. Hypertension. 2. Diabetes mellitus. 3. Chronic kidney disease. 4. Congestive heart failure. 5. Hepatitis B and C. 6. Polysubstance abuse. PAST SURGICAL HISTORY: 1. Cholecystectomy. 2. Hemicolectomy. ALLERGIES: No known drug allergies. CURRENT MEDICATIONS: 1. Ecotrin 81 mg daily. 2. Lipitor 40 mg daily. 3. Coreg 25 mg b.i.d. 4. Epogen 7,500 units weekly. 5. Pepcid 20 mg daily. 6. Apresoline 75 mg t.i.d. 7. Insulin b.i.d. 8. Imdur ER 30 mg daily. 9. Minoxidil 10 mg daily. 10. Procardia XL 90 mg daily. FAMILY HISTORY: Positive for hypertension. No known history of colon cancer. SOCIAL HISTORY: Single, estranged from his family. Positive for alcohol, marijuana and cocaine use. REVIEW OF SYSTEMS: A 10 point review of systems is negative except for arm pain. PHYSICAL EXAMINATION: VITAL SIGNS: Temperature is 97.5, pulse 64, respiratory rate 16, BP is 172/74, he is 100% on room ai r. GENERAL: Well-developed, well-nourished male in no acute distress. HEENT: Normocephalic, atraumatic. Pupils are equal and reactive to light. CARDIOVASCULAR: Regular rate and rhythm. LUNGS: Clear. ABDOMEN: Soft, nontender. He has a midline incision that is well approximated. EXTREMITIES: He has got 2+ edema in bilateral lower extremities. SKIN: There is no rash. HEMATOLOGIC: No petechia or purpura. NEUROLOGIC: Nonfocal. PSYCHIATRIC: The patient is alert and oriented and appropriate. PERTINENT LABORATORY DATA AND X-RAYS: WBCs are 15.6, hemoglobin 8.7, hematocrit 26.5, and platelet c ount is 323,000. Sodium is 134, potassium 4.8, chloride 99, CO2 is 26, BUN 22, creatinine 2.82, calc ium is 9.1, phosphorus 2.6, and albumin 3.5. ASSESSMENT: 1. Stage IIA adenocarcinoma of the colon. 2. End-stage renal disease on hemodialysis. DISCUSSION: The patient has a suggestion of mild microsatellite instability on his pathology. He ma y be a candidate for a short course of chemotherapy; however, he has significant social barriers that have to be resolved first primarily. His placement as he is unfunded and we are having difficulty f inding a place for him. We did discuss that he should come to our clinic and to have a discussion fu rther about the treatment options and clinic information was provided and he was instructed to follow up in the outpatient setting once he figures out where he will be staying. Thank you for the consult.
[2017-10-15] MEDS ORDERED: Fentanyl 100 MCG/2 ML VIAL ONE ×2 (09:58→13:54)
[2017-10-15] MEDS ORDERED: Midazolam HCl 2 mg/2 ml Vial ONE (09:58)
[2017-10-15] MEDS ORDERED: Promethazine HCl 25 MG/ML VIAL ONE (09:58)
[2017-10-15] MEDS ORDERED: Propofol 1,000 MG/100 ML VIAL IV ONE (09:58)
[2017-10-15] MEDS ORDERED: Ondansetron HCl/PF 4 MG/2 ML Vial ONE ×2 (09:58→16:58)
[2017-10-15] MEDS ORDERED: PHENYLEPHRINE-NS 100 MCG/ML 10 ML SYRINGE ONE (09:58)
[2017-10-15] MEDS ORDERED: Glycopyrrolate 0.2 MG/ML 5 ML SYRINGE ONE (09:59)
[2017-10-15] MEDS ORDERED: ePHEDrine/0.9% NaCl/PF SYRINGE 50 mg/10 ml ONE (09:59)
[2017-10-15] MEDS ORDERED: Dextrose 50% Abboject 50 ML SYRINGE ONE (10:07)
[2017-10-15] MEDS ORDERED: CEFAZOLIN/Water 2 GM/20 ML SYRINGE ONE (10:13)
--- NOTE | 2017-10-15 10:59 | PDOC.PN ---
- Subjective Encounter Start Date: 10/15/17 Encounter Start Time: 07:00 Subjective: no sob -: npo for fistula placement today - Objective Resuscitation Status: Resuscitation Status FULL:Full Resuscitation MAR Reviewed: Yes Vital Signs & Weight: Vital Signs (12 hours) Temp Pulse Pulse Resp BP BP BP 10/15/17 07:50 97.5 F L 64 16 172/74 H 10/15/17 07:20 97.9 F 81 16 175/87 H 10/15/17 07:16 99 175/87 H Pulse Ox Pulse Ox 10/15/17 07:50 100 10/15/17 07:20 100 10/15/17 07:16 82 L Weight Admit Weight 202 lb 14.4 oz Weight 211 lb 3.245 oz Most Recent Monitor Data Heart Rate from ECG 74 NIBP 134/70 NIBP BP-Mean 83 Respiration from ECG 15 SpO2 93 I&O: 10/14/17 10/15/17 10/16/17 06:59 06:59 06:59 Intake Total 750 1240 Output Total 950 250 Balance -200 990 Result Diagrams: 10/14/17 08:25 10/15/17 05:18 Additional Labs: Accuchecks 10/15/17 10/14/17 10/14/17 05:30 22:09 11:59 POC Glucose 359 H 225 H 301 H Phys Exam - Physical Examination HEENT: PERRLA, moist MMs Neck: no JVD, supple Respiratory: no wheezing, no rales Cardiovascular: RRR, no significant murmur Gastrointestinal: soft, non-tender, positive bowel sounds Musculoskeletal: no edema, pulses present Neurological: non-focal, moves all 4 limbs Psychiatric: A&O x 3 Dx/Plan (1) Adenocarcinoma, colon Code(s): C18.9 - MALIGNANT NEOPLASM OF COLON, UNSPECIFIED Status: Resolved Comment: s/p left hemicolectomy, LN negative, adenoCA on path. margins negative. Onc consult per gen surg advice (2) ESRD (end stage renal disease) on dialysis Code(s): N18.6 - END STAGE RENAL DISEASE; Z99.2 - DEPENDENCE ON RENAL DIALYSIS Status: Acute (3) Anemia due to blood loss, acute Code(s): D62 - ACUTE POSTHEMORRHAGIC ANEMIA Status: Acute Comment: stable (4) Cocaine abuse Code(s): F14.10 - COCAINE ABUSE, UNCOMPLICATED Status: Chronic (5) Coronary artery disease Code(s): I25.10 - ATHSCL HEART DISEASE OF [place] CORONARY ARTERY W/O ANG PCTRS Status: Chronic Qualifiers: Coronary Disease-Associated Artery/Lesion type: [place] artery [place] vs. transplanted heart: [place] heart Associated angina: without angina Qualified Code(s): I25.10 - Atherosclerotic heart disease of [place] coronary artery without angina pectoris (6) Diabetes mellitus type 2 in nonobese Code(s): E11.9 - TYPE 2 DIABETES MELLITUS WITHOUT COMPLICATIONS Status: Chronic Comment: uncontrolled (7) Hypertension Code(s): I10 - ESSENTIAL (PRIMARY) HYPERTENSION Status: Chronic Qualifiers: Hypertension type: essential hypertension Qualified Code(s): I10 - Essential (primary) hypertension Comment: uncontrolled (8) Physical deconditioning Code(s): R53.81 - OTHER MALAISE Status: Acute - Plan for fistula placement today -: awaiting placement -: counselled to eat consistently for med mgmt of dm -: may dc anytime if placement is ready * . Review of Systems - Medications/Allergies Allergies/Adverse Reactions: Allergies Allergy/AdvReac Type Severity Reaction Status Date / Time No Known Allergies Allergy Verified 02/18/15 19:53 Medications: Current Medications Acetaminophen (Tylenol) 1,000 mg PO Q6H PRN PRN Reason: Moderate to Severe Pain (6-10) Last Admin: 10/14/17 19:31 Dose: 1,000 mg Albuterol/Ipratropium (Duoneb) 3 ml NEB Q4H PRN PRN Reason: Wheezing Aspirin (Ecotrin) 81 mg PO DAILY [facility] Last Admin: 10/14/17 07:51 Dose: Not Given Atorvastatin Calcium (Lipitor) 40 mg PO HS [facility] Last Admin: 10/14/17 22:42 Dose: 40 mg Carvedilol (Coreg) 25 mg PO BID-WM [facility] Last Admin: 10/15/17 05:56 Dose: 25 mg Dextrose/Water (Dextrose 50%) 25 gm SLOW IVP PRN PRN PRN Reason: Hypoglycemia Epoetin Efren (Procrit) 7,500 units SC Q7D [facility] Last Admin: 10/10/17 22:03 Dose: Not Given Famotidine (Pepcid) 20 mg PO DAILY [facility] Last Admin: 10/14/17 07:48 Dose: 20 mg Glucagon (Glucagon) 1 mg IM PRN PRN PRN Reason: Hypoglycemia Hydralazine HCl (Apresoline) 75 mg PO TID [facility] Last Admin: 10/15/17 07:50 Dose: 75 mg Dextrose/Water (D5w) 1,000 mls @ 0 mls/hr IV .Q0M PRN; As Directed PRN Reason: Hypoglycemia Insulin Detemir 20 units/ (Miscellaneous Medication) 0.2 mls @ 0 mls/hr SC BID [facility] Last Admin: 10/14/17 22:43 Dose: 0.2 mls Insulin Human Lispro (Humalog) 0 units SC .MODERATE SLIDING SC PRN PRN Reason: Moderate Correctional Scale Last Admin: 10/15/17 05:57 Dose: 8 units Isosorbide Mononitrate (Imdur Er) 30 mg PO DAILY [facility] Last Admin: 10/14/17 07:48 Dose: 30 mg Labetalol HCl (Normodyne) 20 mg SLOW IVP Q15MIN PRN PRN Reason: FOR SBP > 180 Last Admin: 09/28/17 06:25 Dose: 20 mg Minoxidil (Minoxidil) 10 mg PO DAILY [facility] Last Admin: 10/14/17 13:17 Dose: 10 mg Nifedipine (Procardia Xl) 90 mg PO DAILY [facility] Last Admin: 10/14/17 07:49 Dose: 90 mg Ondansetron HCl (Zofran) 4 mg IVP Q6H PRN PRN Reason: Nausea/Vomiting Last Admin: 10/09/17 11:40 Dose: 4 mg Promethazine HCl (Phenergan) 12.5 mg IM Q4H PRN PRN Reason: Nausea/Vomiting Last Admin: 10/14/17 05:06 Dose: 12.5 mg Sodium Chloride (Flush - Normal Saline) 10 ml IVF PRN PRN PRN Reason: Saline Flush Last Admin: 10/14/17 22:44 Dose: 10 ml Tramadol HCl (Ultram) 50 mg PO Q6H PRN PRN Reason: Mild-Moderate Pain (1-5) Last Admin: 10/14/17 05:06 Dose: 50 mg
[2017-10-15] MEDS ORDERED: Propofol 500 MG/50 ML VIAL ONE (11:52)
[2017-10-15] MEDS ORDERED: Ondansetron HCl/PF 4 MG/2 ML Vial IVP PRN (13:22)
[2017-10-15] MEDS ORDERED: Promethazine HCl 25 MG/ML VIAL SLOW IVP PRN (13:22)
[2017-10-15] MEDS ORDERED: Morphine Sulfate 2 MG/ML SYRINGE SLOW IVP PRN (13:22)
[2017-10-15] MEDS: Aspirin 81 mg Enteric Coated Tablet PO SCH (15:29)
[2017-10-15] MEDS: Minoxidil 10 MG TAB PO SCH (15:29)
[2017-10-15] MEDS: Famotidine 20 MG TAB PO SCH (15:29)
[2017-10-15] MEDS: NIFEdipine XL 90 MG TAB PO SCH (15:30)
[2017-10-15] MEDS: Insulin Detemir 100 UNITS/ML 20 UNITS in Pre-Filled Syringe 1 EACH SC SCH ×2 (15:31→22:14)
[2017-10-15] MEDS ORDERED: Heparin 10,000 UNITS/ 10 ML VIAL ONE (16:58)
[2017-10-15] MEDS ORDERED: Propofol 200 MG/20 ML VIAL ONE (16:58)
--- NOTE | 2017-10-15 17:15 | PDOC.OP ---
Operative Note - Operative Note Operative Note: PROCEDURE: Right brachiocephalic AV fistula SURGEON: Miko Costello M.D. DATE OF PROCEDURE: 10/15/2017 PREOPERATIVE DIAGNOSIS: Renal failure POSTOPERATIVE DIAGNOSIS: Renal failure HISTORY: Patient is a 57-year-old man with renal failure requiring dialysis. 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 The right arm was chosen despite clot in the forearm cephalic vein since the left arm has abnormal drainage with occlusion of the left subclavian vein. PROCEDURE IN DETAIL: After informed consent was obtained and appropriate preoperative antibiotics administered, the patient was taken to the operating room and placed in the supine position and monitored anesthesia care was administered. A preoperative block had been performed by Anesthesia and the adequacy of block was confirmed. The arm was prepped and draped in a standard sterile fashion and the upper arm was carefully examined with ultrasound. The upper arm cephalic vein was of good caliber and a branch on the more dorsal aspect of the forearm was found which was patent and not thrombosed. This appeared to have adequate length to bring over to the brachial artery although it got too small distally to reach to the radial artery. Due to its location several centimeters from the brachial artery incision was made over the vein and it was dissected out circumferentially until an adequate distance was obtained to reach easily to the brachial artery. The vein was marked for orientation, ligated, and divided distally, and spatulated with Roche scissors. This was serially interrogated with cardiac dilators and easily accepted up to a 3.5 mm cardiac dilator. This was flushed with heparinized saline and clamped with a bulldog clamp. The brachial artery was then dissected free and found to be of adequate quality and caliber to support a fistula. A subcutaneous tunnel was created using a clamp and the vein drawn through the tunnel to the brachial artery taking care to maintain correct orientation. Heparin was administered systemically and allowed to circulate for 3 minutes following which the artery was clamped proximally and distally. An anterior arteriotomy was created with an 11 blade scalpel and extended with Roche scissors. An end-to-side anastomosis created with a running 6-0 Prolene suture with excellent technical result. Prior to tying down the anastomosis, the inflow was released to flush the anastomosis. Flow was established first through the fistula and then through the distal artery. Hemostasis at the site was confirmed, and an excellent thrill was felt in the cephalic vein outflow and an excellent bruit was heard with Doppler as well up to the upper arm. Hemostasis at the operative site was again confirmed. The incisions were closed with a running 3-0 subcutaneous and running 4-0 subcuticular Monocryl sutures. Dermabond dressings were placed and the patient was taken to the recovery room in good condition. Estimated blood loss was minimal. There were no complications. There were no specimens.
[2017-10-15] MEDS: Promethazine HCl 25 MG/ML VIAL IM PRN (19:20)
[2017-10-15] MEDS: traMADol HCl 50 MG TAB PO PRN (19:20)
[2017-10-15] MEDS: Atorvastatin Calcium 40 MG TAB PO SCH (22:13)
[2017-10-16] MEDS: hydrALAZINE 25 MG TAB PO SCH ×3 (08:27→20:42)
[2017-10-16] MEDS: Carvedilol 25 MG TAB PO SCH ×2 (08:28→17:23)
[2017-10-16] MEDS: Famotidine 20 MG TAB PO SCH (08:29)
[2017-10-16] MEDS: Aspirin 81 mg Enteric Coated Tablet PO SCH (08:29)
[2017-10-16] MEDS: Insulin Detemir 100 UNITS/ML 20 UNITS in Pre-Filled Syringe 1 EACH SC SCH ×2 (08:30→20:43)
[2017-10-16] MEDS ORDERED: Insulin Detemir 100 UNITS/ML 20 UNITS in Pre-Filled Syringe SC SCH (11:15)
--- NOTE | 2017-10-16 11:18 | PDOC.PN ---
- Subjective Encounter Start Date: 10/16/17 Encounter Start Time: 11:00 Subjective: no sob, feels better -: right arm is a bit swollen after fistula surgery -: can move his fingers and wrist well on right side - Objective Resuscitation Status: Resuscitation Status FULL:Full Resuscitation MAR Reviewed: Yes Vital Signs & Weight: Vital Signs (12 hours) Temp Pulse Resp BP Pulse Ox 10/16/17 08:27 95 10/16/17 08:00 97.8 F 95 20 99 10/16/17 07:33 97.8 F 95 20 171/81 H 99 10/16/17 05:24 95 Weight Admit Weight 202 lb 14.4 oz Weight 214 lb 11.684 oz Most Recent Monitor Data Heart Rate from ECG 74 NIBP 134/70 NIBP BP-Mean 83 Respiration from ECG 15 SpO2 93 I&O: 10/15/17 10/16/17 10/17/17 06:59 06:59 06:59 Intake Total 1240 2000 Output Total 250 Balance 990 1999 Result Diagrams: 10/14/17 08:25 10/15/17 05:18 Additional Labs: Accuchecks 10/16/17 10/15/17 10/15/17 10:56 22:05 16:47 POC Glucose 409 H 458 H 155 H 10/15/17 10/15/17 10/15/17 13:14 11:16 10:07 POC Glucose 132 H 125 H 85 Phys Exam - Physical Examination HEENT: PERRLA, moist MMs Neck: no JVD, supple Respiratory: no wheezing, no rales Cardiovascular: RRR, no significant murmur Gastrointestinal: soft, non-tender, positive bowel sounds Musculoskeletal: no edema, pulses present Neurological: non-focal, moves all 4 limbs Psychiatric: A&O x 3 Dx/Plan (1) Adenocarcinoma, colon Code(s): C18.9 - MALIGNANT NEOPLASM OF COLON, UNSPECIFIED Status: Resolved Comment: s/p left hemicolectomy, LN negative, adenoCA on path. margins negative. Onc consult per gen surg advice (2) ESRD (end stage renal disease) on dialysis Code(s): N18.6 - END STAGE RENAL DISEASE; Z99.2 - DEPENDENCE ON RENAL DIALYSIS Status: Acute (3) Anemia due to blood loss, acute Code(s): D62 - ACUTE POSTHEMORRHAGIC ANEMIA Status: Acute Comment: stable (4) Cocaine abuse Code(s): F14.10 - COCAINE ABUSE, UNCOMPLICATED Status: Chronic (5) Coronary artery disease Code(s): I25.10 - ATHSCL HEART DISEASE OF [place] CORONARY ARTERY W/O ANG PCTRS Status: Chronic Qualifiers: Coronary Disease-Associated Artery/Lesion type: [place] artery [place] vs. transplanted heart: [place] heart Associated angina: without angina Qualified Code(s): I25.10 - Atherosclerotic heart disease of [place] coronary artery without angina pectoris (6) Diabetes mellitus type 2 in nonobese Code(s): E11.9 - TYPE 2 DIABETES MELLITUS WITHOUT COMPLICATIONS Status: Chronic Comment: uncontrolled (7) Hypertension Code(s): I10 - ESSENTIAL (PRIMARY) HYPERTENSION Status: Chronic Qualifiers: Hypertension type: essential hypertension Qualified Code(s): I10 - Essential (primary) hypertension Comment: uncontrolled (8) Physical deconditioning Code(s): R53.81 - OTHER [place]AISE Status: Acute - Plan give additional 20u of levemir now (fingersticks of 400+) -: is amb in room -: continue current htn meds -: awaiting placement * . Review of Systems - Medications/Allergies Allergies/Adverse Reactions: Allergies Allergy/AdvReac Type Severity Reaction Status Date / Time No Known Allergies Allergy Verified 02/18/15 19:53 Medications: Current Medications Acetaminophen (Tylenol) 1,000 mg PO Q6H PRN PRN Reason: Moderate to Severe Pain (6-10) Last Admin: 10/14/17 19:31 Dose: 1,000 mg Albuterol/Ipratropium (Duoneb) 3 ml NEB Q4H PRN PRN Reason: Wheezing Aspirin (Ecotrin) 81 mg PO DAILY [facility] Last Admin: 10/16/17 08:29 Dose: 81 mg Atorvastatin Calcium (Lipitor) 40 mg PO HS [facility] Last Admin: 10/15/17 22:13 Dose: 40 mg Carvedilol (Coreg) 25 mg PO BID-WM [facility] Last Admin: 10/16/17 08:28 Dose: 25 mg Dextrose/Water (Dextrose 50%) 25 gm SLOW IVP PRN PRN PRN Reason: Hypoglycemia Epoetin Efren (Procrit) 7,500 units SC Q7D [facility] Last Admin: 10/10/17 22:03 Dose: Not Given Famotidine (Pepcid) 20 mg PO DAILY [facility] Last Admin: 10/16/17 08:29 Dose: 20 mg Glucagon (Glucagon) 1 mg IM PRN PRN PRN Reason: Hypoglycemia Hydralazine HCl (Apresoline) 75 mg PO TID [facility] Last Admin: 10/16/17 08:27 Dose: 75 mg Dextrose/Water (D5w) 1,000 mls @ 0 mls/hr IV .Q0M PRN; As Directed PRN Reason: Hypoglycemia Insulin Detemir 20 units/ (Miscellaneous Medication) 0.2 mls @ 0 mls/hr SC BID [facility] Last Admin: 10/16/17 08:30 Dose: 0.2 mls Insulin Detemir 20 units/ (Miscellaneous Medication) 0.2 mls @ 0 mls/hr SC NOW [facility] Stop: 10/16/17 13:15 Insulin Human Lispro (Humalog) 0 units SC .MODERATE SLIDING SC PRN PRN Reason: Moderate Correctional Scale Last Admin: 10/15/17 22:14 Dose: 10 units Isosorbide Mononitrate (Imdur Er) 30 mg PO DAILY [facility] Last Admin: 10/15/17 15:31 Dose: 30 mg Labetalol HCl (Normodyne) 20 mg SLOW IVP Q15MIN PRN PRN Reason: FOR SBP > 180 Last Admin: 09/28/17 06:25 Dose: 20 mg Minoxidil (Minoxidil) 10 mg PO DAILY [facility] Last Admin: 10/15/17 15:29 Dose: 10 mg Nifedipine (Procardia Xl) 90 mg PO DAILY [facility] Last Admin: 10/15/17 15:30 Dose: 90 mg Ondansetron HCl (Zofran) 4 mg IVP Q6H PRN PRN Reason: Nausea/Vomiting Last Admin: 10/09/17 11:40 Dose: 4 mg Promethazine HCl (Phenergan) 12.5 mg IM Q4H PRN PRN Reason: Nausea/Vomiting Last Admin: 10/15/17 19:20 Dose: 12.5 mg Sodium Chloride (Flush - Normal Saline) 10 ml IVF PRN PRN PRN Reason: Saline Flush Last Admin: 10/14/17 22:44 Dose: 10 ml Tramadol HCl (Ultram) 50 mg PO Q6H PRN PRN Reason: Mild-Moderate Pain (1-5) Last Admin: 10/15/17 19:20 Dose: 50 mg
[2017-10-16] MEDS: NIFEdipine XL 90 MG TAB PO SCH (12:04)
[2017-10-16] MEDS: Minoxidil 10 MG TAB PO SCH (12:04)
[2017-10-16] MEDS: HumaLOG 300 UNITS/3 ML VIAL SC PRN ×2 (12:08→17:23)
[2017-10-16] MEDS: traMADol HCl 50 MG TAB PO PRN (13:40)
[2017-10-16] MEDS: Atorvastatin Calcium 40 MG TAB PO SCH (20:42)
[2017-10-17] MEDS: hydrALAZINE 25 MG TAB PO SCH ×3 (07:33→23:03)
[2017-10-17] MEDS: Famotidine 20 MG TAB PO SCH (07:33)
[2017-10-17] MEDS: NIFEdipine XL 90 MG TAB PO SCH (07:34)
[2017-10-17] MEDS: Carvedilol 25 MG TAB PO SCH ×2 (07:34→16:47)
[2017-10-17] MEDS: Minoxidil 10 MG TAB PO SCH (07:34)
[2017-10-17] MEDS: Aspirin 81 mg Enteric Coated Tablet PO SCH (07:34)
[2017-10-17] MEDS: Insulin Detemir 100 UNITS/ML 20 UNITS in Pre-Filled Syringe 1 EACH SC SCH (08:17)
[2017-10-17] MEDS: Promethazine HCl 25 MG/ML VIAL IM PRN (08:20)
[2017-10-17] MEDS: HumaLOG 300 UNITS/3 ML VIAL SC PRN ×3 (12:20→23:01)
[2017-10-17] MEDS: traMADol HCl 50 MG TAB PO PRN (14:34)
--- NOTE | 2017-10-17 15:34 | PDOC.PN ---
- Subjective Encounter Start Date: 10/17/17 Encounter Start Time: 15:32 - Objective Resuscitation Status: Resuscitation Status FULL:Full Resuscitation MAR Reviewed: Yes Vital Signs & Weight: Vital Signs (12 hours) Temp Pulse Resp BP BP Pulse Ox 10/17/17 14:35 83 10/17/17 11:26 98.7 F 83 16 118/55 L 98 10/17/17 07:48 98 F 87 18 10/17/17 07:34 87 155/75 H 10/17/17 07:33 87 155/75 H 10/17/17 05:09 99 Weight Admit Weight 202 lb 14.4 oz Weight 214 lb 8.156 oz Most Recent Monitor Data Heart Rate from ECG 74 NIBP 134/70 NIBP BP-Mean 83 Respiration from ECG 15 SpO2 93 I&O: 10/16/17 10/17/17 10/18/17 06:59 06:59 06:59 Intake Total 1999 Balance 1999 Result Diagrams: 10/14/17 08:25 10/15/17 05:18 Additional Labs: Accuchecks 10/17/17 10/17/17 10/16/17 11:23 06:19 20:37 POC Glucose 271 H 174 H 229 H 10/16/17 15:51 POC Glucose 302 H Phys Exam - Physical Examination Constitutional: NAD HEENT: sclera anicteric Neck: supple Respiratory: no wheezing, no rales Cardiovascular: RRR Gastrointestinal: soft Musculoskeletal: no edema Neurological: non-focal Psychiatric: normal affect, A&O x 3 Dx/Plan (1) Anemia due to blood loss, acute Code(s): D62 - ACUTE POSTHEMORRHAGIC ANEMIA Status: Acute Comment: stable (2) ESRD (end stage renal disease) on dialysis Code(s): N18.6 - END STAGE RENAL DISEASE; Z99.2 - DEPENDENCE ON RENAL DIALYSIS Status: Acute (3) Diabetic foot ulcer Code(s): E11.621 - TYPE 2 DIABETES MELLITUS WITH FOOT ULCER; L97.509 - NON- PRESSURE CHRONIC ULCER OTH PRT UNSP FOOT W UNSP SEVERITY Status: Acute (4) Fluid overload Code(s): E87.70 - FLUID OVERLOAD, UNSPECIFIED Status: Acute (5) Hypertension Code(s): I10 - ESSENTIAL (PRIMARY) HYPERTENSION Status: Chronic Qualifiers: Hypertension type: essential hypertension Qualified Code(s): I10 - Essential (primary) hypertension Comment: uncontrolled - Plan cont current plan of care * . increase Levemir to 25 units bid. AM labs awaiting placement
[2017-10-17] MEDS: Epoetin (ESRD) 20,000 UNITS/ML SC SCH (23:02)
[2017-10-17] MEDS: Insulin Detemir 100 UNITS/ML 25 UNITS in Pre-Filled Syringe SC SCH (23:03)
[2017-10-17] MEDS: Atorvastatin Calcium 40 MG TAB PO SCH (23:18)
[2017-10-18 04:31] LABS: Anion Gap 15 mmol/L (10-20); BUN (Urea Nitrogen) 44 mg/dL (8.4-25.7); Calc. Creatinine Clearance 27 mL/min (70-130); Calcium 8.8 mg/dL (7.8-10.44); Carbon Dioxide 22 mmol/L (22-29); Chloride 92 mmol/L (98-107); Estimated GFR-MDRD 18; Glucose 442 mg/dL (70-105); Sodium 124 mmol/L (136-145)
[2017-10-18] MEDS: HumaLOG 300 UNITS/3 ML VIAL SC PRN ×3 (05:53→21:12)
[2017-10-18] MEDS: Acetaminophen 500 MG TAB PO PRN (13:59)
[2017-10-18] MEDS: hydrALAZINE 25 MG TAB PO SCH ×3 (13:59→20:53)
[2017-10-18] MEDS: Carvedilol 25 MG TAB PO SCH ×2 (14:00→17:06)
[2017-10-18] MEDS: Insulin Detemir 100 UNITS/ML 25 UNITS in Pre-Filled Syringe SC SCH ×2 (14:00→21:02)
[2017-10-18] MEDS: Aspirin 81 mg Enteric Coated Tablet PO SCH (14:00)
[2017-10-18] MEDS: Famotidine 20 MG TAB PO SCH (14:00)
[2017-10-18] MEDS: NIFEdipine XL 90 MG TAB PO SCH (14:01)
[2017-10-18] MEDS: Minoxidil 10 MG TAB PO SCH (14:01)
--- NOTE | 2017-10-18 14:41 | PDOC.PN ---
- Subjective Encounter Start Date: 10/18/17 Encounter Start Time: 14:41 Patient seen and examined. No new complaints. No overnight events. feeling good today. had fever last night. better now. - Objective Resuscitation Status: Resuscitation Status FULL:Full Resuscitation MAR Reviewed: Yes Vital Signs & Weight: Vital Signs (12 hours) Temp Pulse Resp 10/18/17 14:01 100 10/18/17 14:00 100 10/18/17 13:59 100 10/18/17 12:50 100.3 F H 100 18 Weight Admit Weight 202 lb 14.4 oz Weight 213 lb 10.047 oz Most Recent Monitor Data Heart Rate from ECG 74 NIBP 134/70 NIBP BP-Mean 83 Respiration from ECG 15 SpO2 93 I&O: 10/17/17 10/18/17 10/19/17 06:59 06:59 06:59 Intake Total 1800 300 Output Total 850 550 Balance 950 -250 Result Diagrams: 10/14/17 08:25 10/18/17 04:00 Additional Labs: Accuchecks 10/18/17 10/18/17 10/17/17 12:45 05:31 20:45 POC Glucose 67 L 406 H 390 H 10/17/17 16:14 POC Glucose 295 H Phys Exam - Physical Examination Constitutional: NAD HEENT: sclera anicteric Neck: supple Respiratory: no wheezing, no rales Cardiovascular: RRR Gastrointestinal: soft Musculoskeletal: no edema Psychiatric: normal affect, A&O x 3 Skin: no rash Dx/Plan (1) Anemia due to blood loss, acute Code(s): D62 - ACUTE POSTHEMORRHAGIC ANEMIA Status: Acute Comment: stable (2) ESRD (end stage renal disease) on dialysis Code(s): N18.6 - END STAGE RENAL DISEASE; Z99.2 - DEPENDENCE ON RENAL DIALYSIS Status: Acute (3) Diabetic foot ulcer Code(s): E11.621 - TYPE 2 DIABETES MELLITUS WITH FOOT ULCER; L97.509 - NON- PRESSURE CHRONIC ULCER OTH PRT UNSP FOOT W UNSP SEVERITY Status: Acute (4) Fluid overload Code(s): E87.70 - FLUID OVERLOAD, UNSPECIFIED Status: Acute (5) Hypertension Code(s): I10 - ESSENTIAL (PRIMARY) HYPERTENSION Status: Chronic Qualifiers: Hypertension type: essential hypertension Qualified Code(s): I10 - Essential (primary) hypertension Comment: uncontrolled - Plan * . HD per renal monitor fever accuchecks - insulin adjusted yesterday. awaiting placement DC planning.
--- NOTE | 2017-10-18 19:14 | PRG ---
DATE OF SERVICE: 10/18/2017 SUBJECTIVE: The patient was seen and examined today with no new complaint. Noted with the following vital signs. OBJECTIVE: VITAL SIGNS: Temperature 100.3, pulse 100, respiratory rate of 18, blood pressure 142/70. HEENT: Unremarkable with moist oral mucosa. No conjunctival injection or icterus. NECK: Supple CARDIOVASCULAR SYSTEM: First and second heart sounds were heard. RESPIRATORY SYSTEM: Clear to auscultation. DIGESTIVE SYSTEM: Revealed a benign abdomen with positive bowel sounds. EXTREMITIES: No peripheral edema. SKIN: No new gross rash. LYMPHATICS: No peripheral lymphadenopathy. LABORATORY DATA: Laboratory investigation showed a sodium of 124, creatinine 4.19 with BUN of 44. IMPRESSION: 1. Hyponatremia, partly due to pseudohyponatremia due to severe hyperglycemia of 442. 2. End-stage renal disease, on hemodialysis. 3. Hypertension. PLAN: 1. We will continue with current dialysis regimen of Wednesday, Wednesday, and Wednesday. 2. Monitor the sodium closely and make adjustments accordingly. 3. Improved blood sugar control.
[2017-10-18] MEDS: Atorvastatin Calcium 40 MG TAB PO SCH (20:54)
[2017-10-19] MEDS: traMADol HCl 50 MG TAB PO PRN ×2 (01:29→09:23)
[2017-10-19] MEDS: Promethazine HCl 25 MG/ML VIAL IM PRN (03:30)
[2017-10-19] MEDS: HumaLOG 300 UNITS/3 ML VIAL SC PRN ×3 (05:53→17:01)
[2017-10-19] MEDS: hydrALAZINE 25 MG TAB PO SCH ×3 (07:58→21:26)
[2017-10-19] MEDS: Carvedilol 25 MG TAB PO SCH ×2 (07:59→16:33)
[2017-10-19] MEDS: NIFEdipine XL 90 MG TAB PO SCH ×2 (08:56→21:26)
[2017-10-19] MEDS: Minoxidil 10 MG TAB PO SCH (08:57)
[2017-10-19] MEDS: Famotidine 20 MG TAB PO SCH (08:57)
[2017-10-19] MEDS: Aspirin 81 mg Enteric Coated Tablet PO SCH (08:57)
[2017-10-19] MEDS: Insulin Detemir 100 UNITS/ML 25 UNITS in Pre-Filled Syringe SC SCH (08:57)
--- NOTE | 2017-10-19 11:43 | PRG ---
DATE OF SERVICE: 10/19/2017 The patient was seen and examined. PHYSICAL EXAMINATION: VITAL SIGNS: Afebrile with temperature 97.9, pulse 88, respiratory rate 20, O2 sat 97%, blood pressu re 211/101. HEENT: Unremarkable. Moist oral mucosa. Neck was supple. No conjunctival injection or icterus. CARDIOVASCULAR: First and second heart sounds were heard. RESPIRATORY: Clear to auscultation. DIGESTIVE: Revealed a benign abdomen with positive bowel sounds. IMPRESSION: 1. End-stage renal disease, hemodialysis dependent. 2. Colonic mass, status post resection. 3. Hypertension, very labile. PLAN: 1. The patient to continue with dialysis as per his current schedule of Wednesday, Wednesday, Wednesday wi th ultrafiltration as tolerated by hemodynamics. 2. Further management will be dependent on the clinical course.
--- NOTE | 2017-10-19 13:43 | PDOC.PN ---
- Subjective Encounter Start Date: 10/19/17 Encounter Start Time: 13:42 Patient seen and examined. No new complaints. No overnight events. feeling good. - Objective Resuscitation Status: Resuscitation Status FULL:Full Resuscitation MAR Reviewed: Yes Vital Signs & Weight: Vital Signs (12 hours) Temp Pulse Resp BP BP Pulse Ox 10/19/17 11:48 98 F 85 20 117/58 L 97 10/19/17 08:56 88 211/101 H 10/19/17 08:00 97.9 F 88 20 97 10/19/17 07:58 88 211/101 H 10/19/17 07:41 97.9 F 88 20 211/101 H 97 Weight Admit Weight 202 lb 14.4 oz Weight 213 lb Most Recent Monitor Data Heart Rate from ECG 74 NIBP 134/70 NIBP BP-Mean 83 Respiration from ECG 15 SpO2 93 I&O: 10/18/17 10/19/17 10/20/17 06:59 06:59 06:59 Intake Total 1800 1250 Output Total 850 1550 Balance 950 -300 Result Diagrams: 10/14/17 08:25 10/18/17 04:00 Additional Labs: Accuchecks 10/19/17 10/19/17 10/18/17 11:21 05:49 21:02 POC Glucose 281 H 357 H 236 H 10/18/17 10/18/17 16:45 12:45 POC Glucose 228 H 67 L Phys Exam - Physical Examination Constitutional: NAD HEENT: sclera anicteric Neck: supple Respiratory: no wheezing, no rales Cardiovascular: RRR Gastrointestinal: soft Musculoskeletal: no edema Neurological: non-focal Psychiatric: normal affect, A&O x 3 Skin: no rash Dx/Plan (1) Anemia due to blood loss, acute Code(s): D62 - ACUTE POSTHEMORRHAGIC ANEMIA Status: Acute Comment: stable (2) ESRD (end stage renal disease) on dialysis Code(s): N18.6 - END STAGE RENAL DISEASE; Z99.2 - DEPENDENCE ON RENAL DIALYSIS Status: Acute (3) Diabetic foot ulcer Code(s): E11.621 - TYPE 2 DIABETES MELLITUS WITH FOOT ULCER; L97.509 - NON- PRESSURE CHRONIC ULCER OTH PRT UNSP FOOT W UNSP SEVERITY Status: Acute (4) Fluid overload Code(s): E87.70 - FLUID OVERLOAD, UNSPECIFIED Status: Acute (5) Hypertension Code(s): I10 - ESSENTIAL (PRIMARY) HYPERTENSION Status: Chronic Qualifiers: Hypertension type: essential hypertension Qualified Code(s): I10 - Essential (primary) hypertension Comment: uncontrolled - Plan cont current plan of care * . HD per renal increase baljeet joseph procardia bid DC planning
--- NOTE | 2017-10-19 14:19 | EKG ---
Test Reason : ABD PAIN Blood Pressure : / mmHG Vent. Rate : 099 BPM Atrial Rate : 099 BPM P-R Int : 160 ms QRS Dur : 098 ms QT Int : 384 ms P-R-T Axes : 041 018 170 degrees QTc Int : 492 ms Normal sinus rhythm Possible Left atrial enlargement T wave abnormality, consider inferolateral ischemia --Inverted T wave II, V4 - V6 Prolonged QT Abnormal ECG No change from Confirmed by DENISHA PAULA D.O. ([id number]), photograph editor KATHIA GUTIERREZ ([id number]) on 10/19/2017 2:19:22 PM Referred By: Confirmed By:DENISHA PAULA D.O.
[2017-10-19] MEDS: PRE FILLED SC SCH (21:04)
[2017-10-19] MEDS: INSULIN DETEMIR SC SCH (21:04)
[2017-10-19] MEDS: Atorvastatin Calcium 40 MG TAB PO SCH (21:06)
[2017-10-20] MEDS: HumaLOG 300 UNITS/3 ML VIAL SC PRN ×2 (06:18→16:50)
[2017-10-20 13:12] VITALS: BMI 28.0
[2017-10-20] MEDS: Carvedilol 25 MG TAB PO SCH ×2 (13:15→16:24)
[2017-10-20] MEDS: Famotidine 20 MG TAB PO SCH (13:15)
[2017-10-20] MEDS: hydrALAZINE 25 MG TAB PO SCH ×3 (13:15→21:12)
[2017-10-20] MEDS: Aspirin 81 mg Enteric Coated Tablet PO SCH (13:15)
[2017-10-20] MEDS: NIFEdipine XL 90 MG TAB PO SCH ×2 (13:17→21:14)
[2017-10-20] MEDS: Minoxidil 10 MG TAB PO SCH (13:17)
[2017-10-20] MEDS: PRE FILLED SC SCH ×2 (13:18→21:13)
[2017-10-20] MEDS: INSULIN DETEMIR SC SCH ×2 (13:18→21:13)
--- NOTE | 2017-10-20 15:02 | PRG ---
DATE OF SERVICE: 10/20/2017 SUBJECTIVE: The patient was seen and examined with no new complaint noted. OBJECTIVE: VITAL SIGNS: Afebrile with temperature 97.9, pulse 89, respiratory rate of 18, and O2 sat 96%. HEENT: Unremarkable with moist oral mucosa. NECK: Supple. No conjunctival injection or icterus. CARDIOVASCULAR: First and second heart sounds were heard. RESPIRATORY: Clear to auscultation. DIGESTIVE: Revealed a benign abdomen with positive bowel sounds. EXTREMITIES: No peripheral edema. SKIN: No new gross rash. IMPRESSION: 1. End-stage renal disease, hemodialysis dependent. 2. Hypertension. PLAN: 1. We will continue with the current management in terms of dialysis while awaiting outpatient place ment for this patient. 2. Further management to be dependent on the clinical course.
[2017-10-20] MEDS: Atorvastatin Calcium 40 MG TAB PO SCH (21:12)
[2017-10-20 23:52] LABS: Amphetamine Not Detected (NotDetected); Barbiturates Screen Not Detected (NotDetected); Benzodiazepine Screen Not Detected (NotDetected); Cocaine Metabolite Screen Not Detected (NotDetected); Medtox Control Line Valid? VALID (VALID); Medtox Reader # READER 4; Methadone Not Detected (NotDetected); Methamphetamine Not Detected (NotDetected); Opiate Screen Not Detected (NotDetected); Oxycodone Screen Not Detected (NotDetected); Phencyclidine (PCP) Not Detected (NotDetected); THC/Cannabinoid Screen Not Detected (NotDetected); Tricyclic Screen Not Detected (NotDetected)
[2017-10-21] MEDS: HumaLOG 300 UNITS/3 ML VIAL SC PRN ×3 (05:09→16:39)
[2017-10-21] MEDS: Promethazine HCl 25 MG/ML VIAL IM PRN (05:15)
[2017-10-21] MEDS: PRE FILLED SC SCH ×2 (08:20→22:15)
[2017-10-21] MEDS: hydrALAZINE 25 MG TAB PO SCH ×3 (08:20→22:14)
[2017-10-21] MEDS: INSULIN DETEMIR SC SCH ×2 (08:20→22:15)
[2017-10-21] MEDS: Carvedilol 25 MG TAB PO SCH ×2 (08:21→16:19)
[2017-10-21] MEDS: Famotidine 20 MG TAB PO SCH (08:21)
[2017-10-21] MEDS: Aspirin 81 mg Enteric Coated Tablet PO SCH (08:21)
[2017-10-21] MEDS: NIFEdipine XL 90 MG TAB PO SCH ×2 (08:32→22:16)
[2017-10-21] MEDS: Minoxidil 10 MG TAB PO SCH (08:32)
[2017-10-21] MEDS: traMADol HCl 50 MG TAB PO PRN (10:15)
[2017-10-21] MEDS ORDERED: Heparin 10,000 UNITS/ 10 ML VIAL ONE (14:45)
--- NOTE | 2017-10-21 15:50 | PRG ---
DATE OF SERVICE: 10/21/2017 SUBJECTIVE: The patient was seen and examined with no new complaint. PHYSICAL EXAMINATION: VITAL SIGNS: Afebrile with temperature 98.9, pulse 83, blood pressure 143/73, respiratory rate of 16 , and O2 sat of 98%. HEENT: Unremarkable with moist oral mucosa. NECK: Supple. No conjunctival injection or icterus. CARDIOVASCULAR: First and second heart sounds were heard. EXTREMITIES: No peripheral edema. LYMPHATICS: No peripheral lymphadenopathy. IMPRESSION: 1. End-stage renal disease on hemodialysis. 2. Hypertension, much improved. 3. Colonic mass, status post resection. PLAN: 1. Continue with current antihypertensive medications. 2. Awaiting placement for disposition. 3. Further management to be dependent on the clinical course.
--- NOTE | 2017-10-21 15:59 | PRG ---
DATE OF SERVICE: 10/21/2017 SUBJECTIVE: The patient was seen and examined at the bedside. He is lying in bed comfortably. He d oes not have much complaints to offer. His appetite is fair. He is participating in physical therap y. He is able to walk with a walker until to the main entrance door and back. OBJECTIVE: VITAL SIGNS: Blood pressure is 143/73, pulse is 76, respiratory rate is 16, pulse oximetry is 98% on room air and temperature is 97.7. HEENT: His head is atraumatic and normocephalic. Eyes are PERRLA. Oral mucosa is moist. NECK: Supple. LUNGS: Clear. HEART: S1 and S2 normal. No S3, no S4. No murmur. ABDOMEN: Soft and nontender. The incision from surgery in the left abdomen is healing. Bowel sound s are present. EXTREMITIES: No clubbing, cyanosis or edema. NEUROLOGIC: He is alert and oriented x4. There is no sensory or motor deficits. There is a fistula done in the right upper extremity and he has a dialysis catheter in the left femoral. LABORATORY DATA: Showed glucose trending from 73-397. IMPRESSION: 1. End-stage renal disease, on dialysis. 2. Hypertension. 3. Anemia. 4. Diabetic foot ulcer. 5. Cocaine abuse. 6. Coronary artery disease. 7. Physical deconditioning. 8. Adenocarcinoma of the colon, status post left hemicolectomy. PLAN: To make some changes on his Leve[facility] schedule because he has ups and downs from 70s-300 and 400 almost. He will continue his physical therapy until we have finalized arrangement for his place whe re he is going to be transferred. At this point, I know that arrangement is in process with the héctor ter and for now, we will continue the same regimen.
[2017-10-21 16:46] LABS: Hep B Surf Ag Non-Reactive S/CO (NonReactive)
[2017-10-21] MEDS: Atorvastatin Calcium 40 MG TAB PO SCH (22:14)
[2017-10-22 07:48] VITALS: BP 147/75; TEMP 99.1
[2017-10-22] MEDS ORDERED: Heparin 1,000 UNITS/ML VIAL ONE (11:11)
[2017-10-22] MEDS: Carvedilol 25 MG TAB PO SCH (13:55)
[2017-10-22] MEDS: Famotidine 20 MG TAB PO SCH (13:55)
[2017-10-22] MEDS: HumaLOG 300 UNITS/3 ML VIAL SC PRN (13:55)
[2017-10-22] MEDS: Aspirin 81 mg Enteric Coated Tablet PO SCH (13:55)
[2017-10-22] MEDS: PRE FILLED SC SCH (13:56)
[2017-10-22] MEDS: INSULIN DETEMIR SC SCH (13:56)
[2017-10-22] MEDS: hydrALAZINE 25 MG TAB PO SCH (13:56)
[2017-10-22] MEDS: NIFEdipine XL 90 MG TAB PO SCH (14:03)
[2017-10-22] MEDS: Minoxidil 10 MG TAB PO SCH (14:04)
--- NOTE | 2017-10-23 04:13 | DIS ---
DATE OF ADMISSION: 09/13/2017 DATE OF DISCHARGE: 10/22/2017 So that is almost 40 days of stay in the hospital. DIAGNOSES AT THE TIME ADMISSION: 1. Lower gastrointestinal bleeding. 2. Adenocarcinoma of the colon. 3. Malignant hypertension, noncompliant. 4. Polysubstance abuse including recent cocaine. 5. Chronic kidney disease stage 3. 6. Recent ST elevation myocardial infarction versus demand ischemia. 7. Diabetes mellitus type 2, insulin-dependent. 8. Chronic hepatitis B and C. 9. Tobacco abuse. 10. Alcohol abuse. DIAGNOSES AT THE TIME DISCHARGE: 1. End-stage renal disease on dialysis. 2. Hypertension. 3. Anemia. 4. Diabetic foot ulcer. 5. Adenocarcinoma of the colon, status post left hemicolectomy. 6. Coronary artery disease. 7. Physical deconditioning. 8. Cocaine abuse. 9. Chronic hepatitis B and C. 10. Recent non-ST elevation myocardial infarction versus demand ischemia. 11. Diabetes mellitus type 2, insulin-dependent. 12. Tobacco abuse. 13. Alcohol abuse. 14. Polysubstance abuse including recent cocaine. 15. Malignant hypertension, noncompliant. 16. Lower gastrointestinal bleeding. CONSULTANTS: Dr. Truman Lafleur, GI; Dr. Bryce De Los Santos, General Surgery; Dr. Edmund Haynes, Pulmonary/ Critical Care Service; Dr. Jalil Parson, Pulmonary/Critical Care; Dr. Joey Berger, Nephrology; Dr. Fish for Nephrology, Dr. Johnny Monroy for Cardiology, Dr. Lalo Liu for Pulmonary/Critica l Care, Dr. Jacek Jesus for Cardiology service, Dr. Miko Costello, General Surgery; Dr. Gonzales Mcgill, General Surgery; Dr. Morales Nog, Pulmonary/Critical Care. PROCEDURE: 1. Surgery, left hemicolectomy by Dr. De Los Santos. 2. Left femoral tunneled hemodialysis catheter with ultrasound and fluoroscopic guidance placement b y Dr. Miko Costello. HOSPITAL COURSE: The patient was a 57-year-old -[place] male with long history of malignant hypertension, Dr. Bess Brewer's patient with multiple other medical problems like polysubstance abuse , noncompliance, who was recently diagnosed with colon cancer and he declined the surgery, who presen jose back to the emergency room with watery blood per rectum for 3 days. He described the blood is da rk. He has had cramping abdominal pain along with nausea and vomiting for the past 3 days prior to t his admission. Apparently, his colonoscopy which was recently done and it was positive for adenocarc inoma of the colon. He complained of some lightheadedness and dizziness on arising, but there was no fainting, no fever, or chills. At the time of emergency room evaluation, his sodium was 131, potass ium is 4.7. BUN 26, creatinine 2.36. Blood sugar was 306, troponin 0.05, hemoglobin 7.7, white coun t of 6.8, platelet count is 229,000. EKG showed regular sinus rhythm, ST-T segment changes in the in ferolateral limb leads consistent with ischemia. The patient got admitted to the hospital with n.p.o . typed and screened, IV fluids in order to transfuse to keep hemoglobin greater than 7, and parenter al medications for blood pressure control with serial H&H's, and surgical consultation. His long acting insulin was put on hold and he was placed on Accu-Cheks, sliding scale short acting. The patient was seen by Dr. Truman Lafleur, who recommended to proceed with the surgery and the patient was seen by Dr. De Los Santos who offered him surgery, but he declined it. Because of his hypotension jaden y in the hospital stay, he required a lot of IV fluids, which caused pulmonary edema. Also, the jonah ent required vasopressors. His hemoglobin was checked every 6 hours and at the time of admission, hi s hemoglobin was 7.7. Patient was moved to the Intensive Care Unit because of his hypotension. As m entioned above, he required lots of IV fluids and Vasopressor, so was the blood pressure got stabiliz ed. When he developed pulmonary edema, he was placed on diuretics and he was continued on a Zosyn fo r possible aspiration pneumonitis. Because of hypotension, his kidney function got worse. Most like ly, he developed acute tubular necrosis and Nephrology was consulted. The patient was seen by Dr. Catalino trimble. He was started on salt poor albumin 25 grams IV q.6 hours and special efforts were done to optimi ze hemodynamics. Because of worsening renal failure, his Zosyn dose was adjusted to renal failure ap propriately and Lovenox was stopped and subcutaneous heparin was started. During Intensive Care Unit stay, he had encephalopathy, which improved gradually then finally patient was started on dialysis a nd he was transferred out to telemetry floor and subsequently, antibiotics were switched to oral and he continued on hemodialysis. His general condition improved and he agreed to have surgery on his co john to remove the cancer. Subsequently, while on telemetry floor, he developed blood pressure in the 80s and heart rate was dropping to 50s and 40s. The patient was moved to the Intensive Care Unit be cause of some apneic episodes. He got intubated and the patient was again seen by Dr. Haynes, who f elt like this cardiopulmonary arrest could be ischemic in nature and Cardiology was consulted. The p atient was restarted on Zosyn for aspiration coverage and echocardiogram was ordered. Dr. Monroy s aw the patient for cardiology evaluation. He felt that he could have aspiration, which triggered acu te ischemia and then hypotension. The patient was receiving hemodialysis through [facility] catheter, then subsequently a tunneled catheter was placed by General Surgery, I had to secure hemodialysis ac cess finally, the patient improved to the point that he could have a laparotomy done and his left hem icolon, who was removed. He was continued on IV Zosyn for aspiration and he was receiving intermitte nt hemodialysis as indicated. He had some operation ileus, which gradually resolved with increased a ctivity. The colon cancer was staged IIA adenocarcinoma of the colon. The patient was seen by Dr. Tricia Lawson and the patient gradually improved to the point that arrangements were made to transfer h im because of difficult situation socially and financially, we were not able to find him the best opt ion, he is going [facility], outpatient hemodialysis was arranged. Also, he will follow up with Dr. De Los Santos and PCP in 1 week. DISCHARGE MEDICATIONS: His medications at the time of discharge, atorvastatin 40 mg at bedtime, Proc rit 7500 units subcutaneously every 7 days, hydralazine 75 mg 3 times a day, minoxidil 10 mg once a d ay, nifedipine 90 mg twice a day along with aspirin 81 mg once a day, isosorbide mononitrate 30 mg, c arvedilol 12.5 mg IV twice a day. The patient is going to stay on a 2000 calories ADA diet. Insulin 70/30, NovoLog 25 units twice a day subcutaneously ACTIVITIES: As tolerated. Patient was seen and examined before he is discharged. This discharge was very long and took much more than 30 minutes to finish.
== END 2017-10-22 16:23 | disposition home or self-care (01) | DRG 329 ==
LOC: ERS 01:06 → 2NO 04:35 → T4-A 09-14 11:57 → CCU 09-15 14:41 → T4-B 09-21 16:39 → CCU 09-23 22:53 → 2SW 09-27 12:16 → 2NO 09-28 01:15 → CCU 09-28 23:04 → 2NO 09-30 15:22 → ONC 10-07 23:40
PROVIDERS: ADMIT Internal Medicine Infectious Disease; ATTEND Internal Medicine Infectious Disease
PROC: 30233N1 Transfusion of Nonautologous Red Blood Cells into Peripheral Vein, Percutaneous Approach (ICD-10-PCS; 2017-09-13)
PROC: 02HV33Z Insertion of Infusion Device into Superior Vena Cava, Percutaneous Approach (ICD-10-PCS; 2017-09-15)
PROC: 5A1D70Z Performance of Urinary Filtration, Intermittent, Less than 6 Hours Per Day (ICD-10-PCS; 2017-09-20)
PROC: 02HV33Z Insertion of Infusion Device into Superior Vena Cava, Percutaneous Approach (ICD-10-PCS; 2017-09-21)
PROC: 0DTG4ZZ Resection of Left Large Intestine, Percutaneous Endoscopic Approach (ICD-10-PCS; principal; 2017-09-28)
PROC: 5A1935Z Respiratory Ventilation, Less than 24 Consecutive Hours (ICD-10-PCS; 2017-09-28)
PROC: 02HV33Z Insertion of Infusion Device into Superior Vena Cava, Percutaneous Approach (ICD-10-PCS; 2017-09-28)
PROC: 0JH63XZ Insertion of Tunneled Vascular Access Device into Chest Subcutaneous Tissue and Fascia, Percutaneous Approach (ICD-10-PCS; 2017-09-28)
PROC: 3E0T3BZ Introduction of Anesthetic Agent into Peripheral Nerves and Plexi, Percutaneous Approach (ICD-10-PCS; 2017-09-28)
PROC: 03170ZD Bypass Right Brachial Artery to Upper Arm Vein, Open Approach (ICD-10-PCS; 2017-10-15)
PROC: 3E0T3BZ Introduction of Anesthetic Agent into Peripheral Nerves and Plexi, Percutaneous Approach (ICD-10-PCS; 2017-10-15)
DX: C18.4 Malignant neoplasm of transverse colon (principal); J96.01 Acute respiratory failure with hypoxia; N17.0 Acute kidney failure with tubular necrosis; J69.0 Pneumonitis due to inhalation of food and vomit; G93.41 Metabolic encephalopathy; I13.2 Hypertensive heart and chronic kidney disease with heart failure and with stage 5 chronic kidney disease, or end stage renal disease; D62 Acute posthemorrhagic anemia; E11.22 Type 2 diabetes mellitus with diabetic chronic kidney disease; N18.6 End stage renal disease; I46.9 Cardiac arrest, cause unspecified; I50.33 Acute on chronic diastolic (congestive) heart failure; E87.1 Hypo-osmolality and hyponatremia; B18.1 Chronic viral hepatitis B without delta-agent; E87.2 Acidosis; I24.8 Other forms of acute ischemic heart disease; K91.30 Postprocedural intestinal obstruction, unspecified as to partial versus complete; E11.65 Type 2 diabetes mellitus with hyperglycemia; F17.210 Nicotine dependence, cigarettes, uncomplicated; F14.10 Cocaine abuse, uncomplicated; Z79.4 Long term (current) use of insulin; F10.10 Alcohol abuse, uncomplicated; I25.10 Atherosclerotic heart disease of native coronary artery without angina pectoris; D63.1 Anemia in chronic kidney disease; Z91.19 Patient's noncompliance with other medical treatment and regimen; E87.70 Fluid overload, unspecified; B18.2 Chronic viral hepatitis C; K74.60 Unspecified cirrhosis of liver; E83.39 Other disorders of phosphorus metabolism; E66.9 Obesity, unspecified; D63.0 Anemia in neoplastic disease; I95.9 Hypotension, unspecified; E11.621 Type 2 diabetes mellitus with foot ulcer; L97.509 Non-pressure chronic ulcer of other part of unspecified foot with unspecified severity; Y83.8 Other surgical procedures as the cause of abnormal reaction of the patient, or of later complication, without mention of misadventure at the time of the procedure; Z68.31 Body mass index [BMI] 31.0-31.9, adult
CPT/HCPCS: 36415; 36416; 36430; 71010; 74000; 74176; 74250; 80048; 80053; 80069; 80306; 80500; 81001; 82274; 82533; 82553; 82805; 83036; 83605; 83690; 83735; 83880; 84484; 85014; 85018; 85025; 85049; 85610; 85611; 85730; 85732; 86580; 86704; 86706; 86803; 86850; 86900; 86901; 87324; 87340; 87449; 87522; 88309; 90935; 93005; 93010; 93306; 93970; 94002; 94003; 96365; 96366; 96375; 96376; 99406; A4216; C1751; C1752; C1769; C9113; G0257; G0365; G8978-GP-CJ; G8978-GP-CK; G8978-GP-CL; G8979-GP-CI; G8979-GP-CJ; G8987-GO-CJ; G8987-GO-CK; G8988-GO-CI; J0131; J0171; J0360; J1644; J1650; J1815; J1940; J2001; J2250; J2270; J2405; J2543; J2550; J2704; J2720; J3010; J7050; P9016; P9047; Q4081; S0028

== ENCOUNTER 2017-10-30 09:09 | Day surgery (SDC) | payer OTHER, SELFPAY ==
[2017-10-30] MEDS ORDERED: Acetaminophen 325 MG TAB PO PRN (13:01)
[2017-10-30] MEDS ORDERED: diphenhydrAMINE 25 MG CAP PO PRN ×2 (13:03→13:15)
[2017-10-30 19:39] VITALS: BP 145/81; TEMP 98.3
== END 2017-10-30 19:39 | disposition home or self-care (01) ==
LOC: LAB 09:09 → ONC/OP 19:39
PROVIDERS: ATTEND Emergency Medicine
PROC: 30233N1 Transfusion of Nonautologous Red Blood Cells into Peripheral Vein, Percutaneous Approach (ICD-10-PCS; principal; 2017-10-30)
DX: Z51.89 Encounter for other specified aftercare (principal); I12.9 Hypertensive chronic kidney disease with stage 1 through stage 4 chronic kidney disease, or unspecified chronic kidney disease; E11.22 Type 2 diabetes mellitus with diabetic chronic kidney disease; N18.3 Chronic kidney disease, stage 3 (moderate); C18.9 Malignant neoplasm of colon, unspecified; F19.10 Other psychoactive substance abuse, uncomplicated; B18.1 Chronic viral hepatitis B without delta-agent; B18.2 Chronic viral hepatitis C; F17.200 Nicotine dependence, unspecified, uncomplicated; F14.10 Cocaine abuse, uncomplicated; F10.10 Alcohol abuse, uncomplicated; I25.2 Old myocardial infarction; D63.1 Anemia in chronic kidney disease; E11.621 Type 2 diabetes mellitus with foot ulcer; Z91.14 Patient's other noncompliance with medication regimen; Z99.2 Dependence on renal dialysis; Z79.82 Long term (current) use of aspirin; Z79.4 Long term (current) use of insulin; Z79.899 Other long term (current) drug therapy; Z90.49 Acquired absence of other specified parts of digestive tract
CPT/HCPCS: 36415; 36430; 85014; 85018; 86850; 86900; 86901; P9016

== ENCOUNTER 2017-12-15 18:43 | Emergency (ER) | payer SELFPAY ==
[2017-12-15 19:39] LABS: #Eosinphils 0.2 thou/uL (0.0-0.7); #Lymphocytes 1.3 thou/uL (1.20-3.40); #Monocytes 0.6 thou/uL (0.11-0.59); #Neutrophils 3.9 thou/uL (1.40-6.50); %Basophils 0.3 % (0.0-1.0); %Eosinophils 3.4 % (0.0-10.0); %Lymphocytes 21.7 % (21.0-51.0); %Monocytes 9.2 % (0.0-10.0); %Neutrophils 65.4 % (42.0-75.0); Hemoglobin 13.1 g/dL (14.0-18.0); Mean Corpuscular HGB CONC 32.4 g/dL (32.0-36.0); Mean Corpuscular Hemoglobin 25.9 pg (27.0-31.0); Mean Corpuscular Volume 79.9 fl (80.0-94.0); Mean Platelet Volume 10.1 fL (7.4-10.4); Platelet Count 149 thou/uL (130-400); RBC Distribution Width 14.4 % (11.5-14.5); Red Blood Cell (RBC) Count 5.04 mill/uL (4.70-6.10)
[2017-12-15 19:59] LABS: ALT (SGPT) 7 U/L (8-55); AST (SGOT) 10 U/L (5-34); Albumin 3.3 g/dL (3.5-5.0); Alkaline Phosphatase 123 U/L (40-150); Anion Gap 10 mmol/L (10-20); BUN (Urea Nitrogen) 16 mg/dL (8.4-25.7); Bilirubin, Total 0.6 mg/dL (0.2-1.2); Calc. Creatinine Clearance 0 mL/min (70-130); Calcium 8.9 mg/dL (7.8-10.44); Carbon Dioxide 27 mmol/L (22-29); Chloride 99 mmol/L (98-107); Estimated GFR-MDRD 28; Globulin 3.8 g/dL (2.4-3.5); Glucose 470 mg/dL (70-105); Potassium 3.8 mmol/L (3.5-5.1); Protein, Total 7.1 g/dL (6.0-8.3); Sodium 132 mmol/L (136-145)
[2017-12-15] MEDS ORDERED: Insulin Regular 300 UNITS/3 ML VIAL ONE (20:44)
== END 2017-12-16 01:10 | disposition home or self-care (01) ==
LOC: ERS 18:43
DX: E11.65 Type 2 diabetes mellitus with hyperglycemia (principal); E78.1 Pure hyperglyceridemia; E78.5 Hyperlipidemia, unspecified; I25.2 Old myocardial infarction; I11.0 Hypertensive heart disease with heart failure; I50.9 Heart failure, unspecified; Z79.899 Other long term (current) drug therapy
CPT/HCPCS: 36415; 36416; 80053; 85025; 93005; 96361; 96372; 96374; J1815

== ENCOUNTER 2017-12-31 05:47 | Observation (INO) | payer MEDICAID ==
[2017-12-31] MEDS ORDERED: Ondansetron HCl/PF 4 MG/2 ML Vial ONE (06:07)
[2017-12-31] MEDS ORDERED: Insulin Regular 300 UNITS/3 ML VIAL ONE (06:07)
[2017-12-31 06:26] LABS: #Eosinphils 0.1 thou/uL (0.0-0.7); #Lymphocytes 0.7 thou/uL (1.20-3.40); #Monocytes 0.4 thou/uL (0.11-0.59); #Neutrophils 3.9 thou/uL (1.40-6.50); %Basophils 0.8 % (0.0-1.0); %Eosinophils 2.1 % (0.0-10.0); %Lymphocytes 13.8 % (21.0-51.0); %Neutrophils 76.3 % (42.0-75.0); Hemoglobin 14.3 g/dL (14.0-18.0); Mean Corpuscular HGB CONC 32.7 g/dL (32.0-36.0); Mean Corpuscular Hemoglobin 25.9 pg (27.0-31.0); Mean Corpuscular Volume 79.2 fl (80.0-94.0); Mean Platelet Volume 10.6 fL (7.4-10.4); Platelet Count 123 thou/uL (130-400); White Blood Cell (WBC) Count 5.2 thou/uL (4.8-10.8)
[2017-12-31 06:48] LABS: ALT (SGPT) 9 U/L (8-55); AST (SGOT) 12 U/L (5-34); Albumin 3.3 g/dL (3.5-5.0); Alkaline Phosphatase 123 U/L (40-150); Anion Gap 10 mmol/L (10-20); BUN (Urea Nitrogen) 23 mg/dL (8.4-25.7); Bilirubin, Total 0.9 mg/dL (0.2-1.2); Calc. Creatinine Clearance 0 mL/min (70-130); Calcium 8.9 mg/dL (7.8-10.44); Carbon Dioxide 25 mmol/L (22-29); Chloride 96 mmol/L (98-107); Estimated GFR-MDRD 27; Globulin 3.5 g/dL (2.4-3.5); Lipase 149 U/L (8-78); Potassium 3.9 mmol/L (3.5-5.1); Protein, Total 6.8 g/dL (6.0-8.3); Sodium 127 mmol/L (136-145)
[2017-12-31 06:50] LABS: Glucose 582 mg/dL (70-105)
[2017-12-31] MEDS ORDERED: Morphine 4 MG/ML VIAL ONE (07:10)
[2017-12-31] MEDS ORDERED: Nitroglycerin 0.4 MG TAB (25 Tab Bottle) ONE (07:11)
[2017-12-31] MEDS ORDERED: Metoclopramide HCl 10 MG/2 ML VIAL ONE (07:11)
[2017-12-31 07:12] LABS: CKMB 2.7 ng/mL (0-6.6); Troponin I 0.051 ng/mL (< 0.028)
--- NOTE | 2017-12-31 07:39 | CT ---
ABDOMEN AND PELVIC CT SCAN WITH IV CONTRAST: HISTORY: A 57-year-old male with a history of abdominal pain, ESRD on hemodialysis, with nausea and vomiting. COMPARISON: 09/13/17. FINDINGS: The lung bases appear clear. There is a large-caliber vascular access catheter extending from the le ft femoral vein into the vascular congestion. Status post cholecystectomy. The visualized liver, pa ncreas, spleen, and adrenal glands are unremarkable as evaluated without IV contrast. No renal calcu arthur or acute obstruction. Normal-appearing appendix. No abscess, adenopathy, abnormal fluid nick ection, or other acute process. IMPRESSION: No acute process. Large-caliber venous access catheter extending from the left groin into the superi or aspect of the inferior vena cava. Normal-appearing appendix. No renal calculi or obstruction. POS: [facility]
--- NOTE | 2017-12-31 07:41 | RAD ---
CHEST 1 VIEW: HISTORY: A 57-year-old male with a history of abdominal pain, nausea, and vomiting. COMPARISON: 09/28/17. FINDINGS: There is some rotation to the left. Monitor leads overlie the chest. Heart size is normal. The rohit gs are clear. IMPRESSION: No acute intrathoracic disease. Atherosclerosis of the aorta. POS: [facility]
[2017-12-31] MEDS ORDERED: Mag-Al 1200 mg/1200 mg/30 ML UDCUP PO PRN (10:04)
[2017-12-31] MEDS ORDERED: Labetalol HCl 100 MG/20 ML VIAL SLOW IVP PRN (10:04)
[2017-12-31] MEDS ORDERED: Loratadine 10 MG TAB PO PRN (10:04)
[2017-12-31] MEDS ORDERED: HumaLOG 300 UNITS/3 ML VIAL SC PRN (10:04)
[2017-12-31] MEDS ORDERED: Dextrose 5% in Water 1,000 ML IV PRN (10:04)
[2017-12-31] MEDS ORDERED: Sodium Chloride 0.65% Nasal 44 ML BOT EA NARE PRN (10:04)
[2017-12-31] MEDS ORDERED: Eucerin (Mineral Oil/Petrolatum,White) 30 gm Jar TOP PRN (10:04)
[2017-12-31] MEDS ORDERED: Ondansetron HCl/PF 4 MG/2 ML Vial IVP PRN (10:04)
[2017-12-31] MEDS ORDERED: HYDROcodone/Acetaminophen 10/325 mg Tablet PO PRN (10:04)
[2017-12-31] MEDS ORDERED: Artificial Tear Sol 15 ML BOT EA EYE PRN (10:04)
[2017-12-31] MEDS ORDERED: cloNIDine 0.1 MG TAB PO PRN (10:04)
[2017-12-31] MEDS ORDERED: Ondansetron ODT 4 MG TAB PO PRN (10:04)
[2017-12-31] MEDS ORDERED: Acetaminophen 325 MG TAB PO PRN (10:04)
[2017-12-31] MEDS ORDERED: Zolpidem Tartrate 5 MG TAB PO PRN (10:04)
[2017-12-31] MEDS ORDERED: Metoclopramide HCl 10 MG/2 ML VIAL IVP PRN (10:04)
[2017-12-31] MEDS ORDERED: Diabetic Tussin 200 MG/10 ML UDCUP PO PRN (10:04)
[2017-12-31] MEDS ORDERED: Calcium Carbonate 500 MG ChewTAB PO PRN (10:04)
[2017-12-31] MEDS ORDERED: Milk Of Magnesia 30 ML UDCUP PO PRN (10:04)
[2017-12-31] MEDS ORDERED: Chloraseptic Spray 180 ml Bottle PO PRN (10:04)
[2017-12-31] MEDS ORDERED: Loperamide HCl 2 MG CAP PO PRN (10:04)
[2017-12-31] MEDS ORDERED: hydrALAZINE 20 MG/ML VIAL SLOW IVP PRN (10:04)
[2017-12-31] MEDS ORDERED: Senokot 8.6 MG TAB PO PRN (10:04)
[2017-12-31] MEDS ORDERED: Dextrose 50% Abboject 50 ML SYRINGE SLOW IVP PRN (10:04)
--- NOTE | 2017-12-31 11:21 | HP ---
PRIMARY CARE PHYSICIAN: Bess Brewer M.D. REASON FOR ADMISSION: Intractable nausea, vomiting, abdominal pain, hyperglycemia. HISTORY OF PRESENT ILLNESS: A 57-year-old male with a history of hypertension, diabetes type 2, end-stage renal disease on hemodialysis, who came to emergency room with complaint of nausea, vomiting, and abdominal pain started last night. The patient had last dialysis on Wednesday. Patient reports that his abdominal pain is periumbilical in region, constant, 8/10 in intensity, associated with nausea and vomiting. He was not able to keep anything down and that is why he did not take his insulin. He denies any shortness of breath. He denies any cough. He denies any chest congestion. He denies any fever or chills. He denies any diarrhea, melena or hematochezia. He denies any hematemesis. He denies any UTI symptoms. In the emergency room, this patient's blood test showed hyperglycemia, mild thrombocytopenia and elevated troponin. He was appeared very weak and sick in the emergency room and that is why we decided to keep this patient in the hospital for further evaluation and treatment. When he presented to ER, he was having very high blood pressure, but after giving emergency room treatment, blood pressure was slightly improved. He denies any headache. He denies any focal motor symptoms. He denies any chest pain. He denies any palpitation, fever or chills. He denies any flu-like illness. He denies any diarrhea. ALLERGIES: No known drug allergies. CURRENT HOME MEDICATIONS: Lipitor 40 mg p.o. at bedtime, hydralazine 25 mg 3 tablets three times daily, Coreg 12.5 mg twice daily, minoxidil 10 mg p.o. daily , Imdur 30 mg p.o. daily, Novolin 70/30 of 25 units subcu b.i.d. REVIEW OF SYSTEMS: The following complete review of systems was negative, unless otherwise mentioned in the HPI or below: Constitutional: Weight loss or gain, ability to conduct usual activities. Skin: Rash, itching. Eyes: Double vision, pain. ENT/Mouth: Nose bleeding, neck stiffness, pain, tenderness. Cardiovascular: Palpitations, dyspnea on exertion, orthopnea. Respiratory: Shortness of breath, wheezing, cough, hemoptysis, fever, or night sweats. Gastrointestinal: Poor appetite, abdominal pain, heartburn, nausea, vomiting, constipation, or diarrhea. Genitourinary: Urgency, frequency, dysuria, nocturia. Musculoskeletal: Pain, swelling. Neurologic/Psychiatric: Anxiety, depression. Allergy/Immunologic: Skin rash, bleeding tendency. Please see my HPI for pertinent positives and negatives. All other review of systems reviewed and negative except as mentioned in the HPI. PAST MEDICAL HISTORY: Diabetes type 2, insulin requiring, hypertension, ESRD on hemodialysis, dyslipidemia, coronary artery disease, chronic diastolic heart failure. PAST SURGICAL HISTORY: Cholecystectomy, EGD, dialysis fistula in the right arm. PSYCHIATRIC HISTORY: Reviewed and negative. SOCIAL HISTORY: Patient lives in [place]. He denies any tobacco, alcohol or illicit drug abuse. He is on dialysis on Wednesday, Wednesday, and Wednesday. FAMILY HISTORY: Positive for coronary artery disease. No family history of stroke or cancer. EMERGENCY ROOM COURSE: Patient is given hydralazine 20 mg, IV fluid with 2 liter, morphine 4 mg, Reglan 5 mg, Novolin R 10 units, Zofran 4 mg. PHYSICAL EXAMINATION: VITAL SIGNS: On arrival, blood pressure 205/112, pulse 93, respiratory rate 20 , temperature 97.9, saturation 99% on room air, weight 90.7 kilograms. GENERAL: Patient is currently hypertensive, mild distress due to nausea, vomiting, and abdominal pain. HEAD: Normocephalic, atraumatic. EYES: Pupils round, reactive to light. Extraocular muscles are intact. ENT: Dry mucous membranes, no oral lesion, no pharyngeal erythema, no exudate. NECK: Supple, no JVD, no thyromegaly, no carotid bruit, no jugular venous distention. LUNGS: Clear to auscultation without any rhonchi or rales. CARDIAC: S1, S2 regular, slightly tachycardia, no murmur, no gallop, no rub. ABDOMEN: Soft. Epigastric and periumbilical discomfort, but no peritoneal sign , no guarding, no rigidity, no rebound, no distention. BACK: Unremarkable, no CVA tenderness. EXTREMITIES: Upper extremity: Passive movement of all joints is normal. Lower extremity: No edema. Good peripheral pulsation. SKIN: No skin rash. HEMATOLOGICAL: No lymphadenopathy. PSYCHIATRIC: Normal affect. NEUROLOGIC: Nonfocal examination. SIGNIFICANT LABS: EKG showing normal sinus rhythm, LVH, prolonged QT, nonspecific ST-T changes. Chest x-ray based on my review, no acute cardiopulmonary process. CT of the abdomen and pelvis without contrast negative for any nephrolithiasis or any acute process. CBC: WBC 5.2, hemoglobin 14.3, platelet 123, BMP: Sodium 127, potassium 3.9, chloride 96, carbon dioxide 25, BUN 23, creatinine 2.89, glucose 582, calcium 8.9 and lactic acid 1.3. LFT: AST 12, ALT 9, alkaline phosphatase is 123, albumin 3.3, lipase 149, CK-MB 2.7, troponin 0.051. Serum ketones 0.59. ASSESSMENT AND PLAN: 1. Intractable nausea and vomiting. This patient is not tolerating anything p.o. at this point. He has hyperglycemia and he has elevated lipase at this point, suspecting from diabetes gastroparesis versus early pancreatitis. The patient will be given the clear liquid diet at this point, as tolerated and we will treat his nausea and vomiting symptomatically with Zofran and Reglan. We will also continue Protonix 40 mg IV daily. We will continue gentle IV fluid for hydration. 2. Abdominal pain in periumbilical and epigastric region. The patient has elevated lipase and that is why suspecting from early pancreatitis. We will keep on clear liquid diet and we will repeat lipase tomorrow and if patient's abdominal pain improves, then we will consider advancing diet as tolerated. We will control his pain with morphine 2 mg every 2 hourly p.r.n. basis. 3. Hyperglycemia associated with diabetes type 2. The patient was not taking insulin because he was not holding anything down and that might have precipitated hyperglycemia with a stress response. At this point, the patient does not have any diabetic ketoacidosis. We will keep him on telemetry floor. We will monitor Accu-Chek every 4 hourly and each time, we will cover aggressive sliding scale Humalog insulin, and we will also continue insulin 70/ 30 at 25 units subcu b.i.d. and we will watch for hypoglycemia. 4. Elevated troponin likely related with renal disease and demand ischemia. We will do 3 sets of cardiac enzymes to rule out acute coronary syndrome. 5. Hypertensive urgency. We will restart the patient's home medications, hydralazine 75 mg t.i.d., Coreg 12.5 mg twice daily, minoxidil 10 mg p.o. daily and Imdur 30 mg p.o. daily. 6. Dyslipidemia. Continue Lipitor 40 mg p.o. at bedtime. 7. Chronic diastolic heart failure. Currently, patient is euvolemic. 8. End-stage renal disease, on hemodialysis Wednesday, Wednesday, and Wednesday. We will consult Dr. Fish for hemodialysis today because patient is due for dialysis today as well. 9. Coronary artery disease. We will continue aspirin, statin, beta jose therapy, and in line nitrate therapy upon discharge. 10. Deep venous thrombosis prophylaxis not needed because we are expecting discharge in 24 hours. 11. Gastrointestinal prophylaxis, Protonix 40 mg IV daily. 12. Code status: The patient is FULL CODE. Patient does not have any surrogate decision maker. The patient is making decision by himself. Disposition plan most likely within 24-48 hours. Plan of care discussed with the patient in detail. MTDD
[2017-12-31] MEDS: Morphine 5 MG/ML SYRINGE SLOW IVP PRN ×4 (12:27→20:14)
[2017-12-31] MEDS: HumaLOG 300 UNITS/3 ML VIAL SC PRN ×2 (12:29→17:15)
[2017-12-31] MEDS: Sodium Chloride 0.9% 1,000 ML IV SCH (12:29)
[2017-12-31 12:51] LABS: CKMB 3.2 ng/mL (0-6.6); Troponin I 0.061 ng/mL (< 0.028)
[2017-12-31 13:11] VITALS: BMI 26.3
--- NOTE | 2017-12-31 14:16 | CON ---
DATE OF CONSULTATION: 12/31/2017 CONSULTING PHYSICIAN: Dr. Abe Martinez REQUESTING PHYSICIAN: Dr. Velasco REASON FOR CONSULTATION: The need for maintenance hemodialysis. IMPRESSION: 1. End-stage renal disease, hemodialysis dependent on Wednesday, Wednesday, and Wednesday schedule, dialyz ed yesterday. 2. Pancreatitis. 3. Severe hyperglycemia in the context of pancreatitis. PLAN: 1. Patient dialysis to be placed on hold given the clinical status of this patient. I will defer di alysis until tomorrow with ultrafiltration as tolerated by hemodynamics. 2. Further management to be dependent on the clinical course. HISTORY OF PRESENT ILLNESS: This is a 57-year-old gentleman with end-stage renal disease, hemodialys is dependent, who presented here with intractable nausea, vomiting, abdominal pain, and severely elev ated blood sugar. The patient noted to have developed severe pancreatitis and was dialyzed yesterday . The need for continued maintenance hemodialysis necessitated this renal consultation. PAST MEDICAL HISTORY: As noted in the body of the history above. In addition, the patient does have history of hypertension, chronic diastolic heart failure, dyslipidemia. MEDICATIONS: Reviewed as documented on [facility]. ALLERGIES: No known drug allergy. SOCIAL HISTORY: The patient lives in [place]. No alcohol, no tobacco, no illicit drug use. FAMILY HISTORY: Not significantly related to presenting illness. REVIEW OF SYSTEMS: As documented in the body of the history. All the other histories were reviewed and found not to be significantly related to presenting illness. PHYSICAL EXAMINATION: GENERAL: The patient was found to be ill-looking. VITAL SIGNS: Afebrile with temperature 97.6, pulse 107, respiratory rate 20, O2 sat 99% with a blood pressure 144/69. HEENT: Unremarkable. Moist oral mucosa. Neck was supple, no conjunctival injection or icterus. CARDIOVASCULAR SYSTEM: First and second heart sounds were heard. RESPIRATORY SYSTEM: Clear to auscultation. DIGESTIVE SYSTEM: Revealed tender abdomen with positive bowel sounds. EXTREMITIES: No peripheral edema. SKIN: No new gross rash. LYMPHATICS: No peripheral lymphadenopathy. SUMMARY: A 57-year-old gentleman with end-stage renal disease, hemodialysis dependent, who presented here with abdominal pain, nausea and vomiting, and diagnosed with acute pancreatitis. Thank you for this consultation. We will follow with you.
[2017-12-31] MEDS: hydrALAZINE 25 MG TAB PO SCH ×2 (14:48→20:14)
[2017-12-31 15:43] LABS: CKMB 3.2 ng/mL (0-6.6)
[2017-12-31 15:51] LABS: Troponin I 0.081 ng/mL (< 0.028)
[2017-12-31] MEDS: Carvedilol 6.25 MG TAB PO SCH (17:13)
[2017-12-31] MEDS: Insulin NPH/Reg Insulin Hm 300 UNITS/3 ML VIAL SC SCH (18:42)
[2017-12-31] MEDS ORDERED: Atorvastatin Calcium 40 MG TAB PO SCH (21:00)
[2018-01-01 05:35] LABS: #Eosinphils 0.3 thou/uL (0.0-0.7); #Lymphocytes 1.4 thou/uL (1.20-3.40); #Monocytes 0.6 thou/uL (0.11-0.59); %Basophils 0.5 % (0.0-1.0); %Eosinophils 3.3 % (0.0-10.0); %Lymphocytes 16.4 % (21.0-51.0); %Monocytes 7.1 % (0.0-10.0); %Neutrophils 72.7 % (42.0-75.0); Hemoglobin 13.8 g/dL (14.0-18.0); Mean Corpuscular HGB CONC 32.2 g/dL (32.0-36.0); Mean Corpuscular Hemoglobin 25.8 pg (27.0-31.0); Mean Corpuscular Volume 80.2 fl (80.0-94.0); Mean Platelet Volume 10.2 fL (7.4-10.4); Platelet Count 144 thou/uL (130-400); RBC Distribution Width 15.1 % (11.5-14.5); Red Blood Cell (RBC) Count 5.33 mill/uL (4.70-6.10); White Blood Cell (WBC) Count 8.3 thou/uL (4.8-10.8)
[2018-01-01] MEDS: Morphine 5 MG/ML SYRINGE SLOW IVP PRN (05:41)
[2018-01-01 06:43] LABS: ALT (SGPT) 19 U/L (8-55); AST (SGOT) 25 U/L (5-34); Albumin 2.8 g/dL (3.5-5.0); Alkaline Phosphatase 116 U/L (40-150); Anion Gap 13 mmol/L (10-20); BUN (Urea Nitrogen) 25 mg/dL (8.4-25.7); Bilirubin, Total 0.7 mg/dL (0.2-1.2); Calc. Creatinine Clearance 34 mL/min (70-130); Calcium 8.6 mg/dL (7.8-10.44); Carbon Dioxide 23 mmol/L (22-29); Chloride 100 mmol/L (98-107); Estimated GFR-MDRD 27; Globulin 3.3 g/dL (2.4-3.5); Glucose 181 mg/dL (70-105); Lipase 14 U/L (8-78); Potassium 3.8 mmol/L (3.5-5.1); Protein, Total 6.1 g/dL (6.0-8.3); Sodium 132 mmol/L (136-145)
[2018-01-01 08:13] LABS: HBSAg Index 0.19 S/CO (0-0.99); Hep B Surf Ag Non-Reactive S/CO (NonReactive)
[2018-01-01] MEDS ORDERED: HumaLOG 300 UNITS/3 ML VIAL SC PRN (08:20)
[2018-01-01] MEDS: Sodium Chloride 0.9% 1,000 ML IV SCH (08:46)
[2018-01-01] MEDS ORDERED: Minoxidil 10 MG TAB PO SCH (09:00)
[2018-01-01] MEDS ORDERED: Pantoprazole 40 MG VIAL IVP SCH (09:00)
[2018-01-01] MEDS: Carvedilol 6.25 MG TAB PO SCH (09:01)
[2018-01-01] MEDS: hydrALAZINE 25 MG TAB PO SCH ×2 (09:02→13:41)
[2018-01-01] MEDS: Insulin NPH/Reg Insulin Hm 300 UNITS/3 ML VIAL SC SCH (09:09)
[2018-01-01] MEDS ORDERED: Heparin 1,000 UNITS/ML VIAL ONE (11:11)
[2018-01-01 13:39] VITALS: BP 118/82; TEMP 97.6
--- NOTE | 2018-01-01 15:15 | DIS ---
DATE OF DISCHARGE: 01/01/2018 DISCHARGE DISPOSITION: Home. FOLLOWUP: Follow up with primary care physician, Dr. Bess Brewer in one week. The patient was seen and examined on the day of discharge, denies any new complaints, abdominal disco mfort has significantly improved. He denies any nausea or vomiting at this time. BRIEF HOSPITAL COURSE: The patient is a 57-year-old -[place] male with hypertension, diabete s mellitus type 2, and end-stage renal disease on hemodialysis, who presented to the hospital with in tractable nausea, vomiting, and diarrhea. Please refer to the history and physical dated 12/31/2017 for further details. The patient was admitted to the telemetry unit as a 23-hour observation with a diagnosis of suspected pancreatitis versus exacerbation of diabetic gastroparesis. He was initially kept on clear liquid d iet, which was slowly advanced. CT scan of the abdomen and pelvis with IV contrast was essentially n egative. He is currently tolerating a full liquid diet. His lipase on admission was 149. Repeat lip ase this morning is 14. His troponins were also in the indeterminate range maximum of 0.081. Please note that patient has chronically elevated troponins. He was advised to continue his home dose of i nsulin. SIGNIFICANT LABORATORY DATA: 1. CBC showed WBC 5.2 with hemoglobin 14.3. 2. Troponins as discussed above. 3. Blood sugar on admission was 582. 4. Ketones on admission was 0.59. 5. CT scan of the abdomen and pelvis as discussed above. 6. Chest x-ray was negative for infiltrate. FINAL DIAGNOSES: 1. Intractable nausea, vomiting, suspected secondary to early pancreatitis versus diabetic gastropar esis, resolved. 2. Abdominal discomfort, probably secondary to #1, resolved. 3. End-stage renal disease on hemodialysis. 4. Uncontrolled diabetes mellitus type 2. Please note that due to nausea and vomiting, patient did not take his 70/30 insulin. 5. Indeterminate troponins, probably secondary to demand ischemia. The patient also has elevated tr oponins during the previous admission as well. 6. Hypertensive urgency, improved. 7. Dyslipidemia. 8. Chronic diastolic heart failure. 9. End-stage renal disease on hemodialysis. 10. Coronary artery disease. 11. Mild protein calorie malnutrition. DISCHARGE MEDICATIONS: Protonix 40 mg daily. Other home medications were resumed. Repeat base met, BMP next week is recommended. Primary care physician is advised to follow. Plan of care was discussed with the patient in detail, he stated understanding.
--- NOTE | 2018-01-07 11:47 | EKG ---
Test Reason : Blood Pressure : / mmHG Vent. Rate : 096 BPM Atrial Rate : 096 BPM P-R Int : 158 ms QRS Dur : 098 ms QT Int : 392 ms P-R-T Axes : 044 018 194 degrees QTc Int : 495 ms Normal sinus rhythm Possible Left atrial enlargement Left ventricular hypertrophy with repolarization abnormality Prolonged QT Inverted T V4-V6, I Abnormal ECG Confirmed by VIRGINIA Fitzgerald, ZAID ([id number]), film editor supervisor NEIDA LOYOLA ([id number]) on 01/07/2018 11:47:10 AM Referred By: Confirmed By:ZAID COLEMAN M.D.
== END 2018-01-01 14:51 | disposition home or self-care (01) ==
LOC: ERS 05:47 → 2SW 10:16
PROVIDERS: ADMIT Internal Medicine; ATTEND Internal Medicine
DX: R11.2 Nausea with vomiting, unspecified (principal); R10.13 Epigastric pain; I13.2 Hypertensive heart and chronic kidney disease with heart failure and with stage 5 chronic kidney disease, or end stage renal disease; E11.22 Type 2 diabetes mellitus with diabetic chronic kidney disease; E11.65 Type 2 diabetes mellitus with hyperglycemia; N18.6 End stage renal disease; I50.32 Chronic diastolic (congestive) heart failure; I16.0 Hypertensive urgency; I25.10 Atherosclerotic heart disease of native coronary artery without angina pectoris; D69.6 Thrombocytopenia, unspecified; K85.90 Acute pancreatitis without necrosis or infection, unspecified; E44.1 Mild protein-calorie malnutrition; Z68.26 Body mass index [BMI] 26.0-26.9, adult; Z99.2 Dependence on renal dialysis; Z79.4 Long term (current) use of insulin; Z79.899 Other long term (current) drug therapy
CPT/HCPCS: 36415; 36416; 71045; 74176; 80053; 82010; 82553; 83605; 83690; 84484; 85025; 87340; 90935; 93005; 96361; 96365; 96375; 96376; J2270; C9113; G0257; G0378; J0360; J1644; J1815; J2405; J2765

== ENCOUNTER 2018-01-02 05:12 | Emergency (ER) | payer MEDICAID ==
[2018-01-02] MEDS ORDERED: Ondansetron HCl/PF 4 MG/2 ML Vial ONE (05:40)
[2018-01-02 05:50] LABS: Bilirubin Negative (Negative); Blood, Urine Trace (Negative); Clarity CLEAR (Clear); Glucose, Urine (Dipstick) >=1000 mg/dL (Negative); Leukocyte Negative (Negative); Nitrite Negative (Negative); Protein, Urine (Dipstick) 300 mg/dL (Neg-Trace); Specific Gravity, Urine 1.017 (1.002-1.036); Urobilinogen 0.2 mg/dL (0.2-1.0); pH, Urine 7.5 (5.0-9.0)
[2018-01-02 05:59] LABS: Bacteria/HPF None Seen HPF (None Seen); Hyaline Casts/LPF 0-3 HYALINE CAST LPF (0-3 Hyaline); Pathc Cast-AUWi Flag 0.13 (0-2.49); RBC/HPF 0-3 HPF (0-3); Squamous Epithelial 0-3 HPF (0-3); WBC/HPF None Seen HPF (0-3)
[2018-01-02 06:00] LABS: Actual Bicarbonate (HCO3a) 24.9 mEq/L (22-26); Base Excess (BEa) 0.1 mEq/L (0 (+/-) 2.5); CO2 Tension 41.4 mmHg (35.0-45.0); O2 Tension (PaO2) 73.4 mmHg (80.0-100.0)
[2018-01-02 06:00] LABS: #Basophils 0.1 thou/uL (0.0-0.2); #Eosinphils 0.1 thou/uL (0.0-0.7); #Lymphocytes 0.9 thou/uL (1.20-3.40); #Monocytes 0.5 thou/uL (0.11-0.59); #Neutrophils 5.5 thou/uL (1.40-6.50); %Basophils 0.7 % (0.0-1.0); %Eosinophils 2.1 % (0.0-10.0); %Lymphocytes 12.1 % (21.0-51.0); %Monocytes 7.6 % (0.0-10.0); %Neutrophils 77.6 % (42.0-75.0); Hemoglobin 13.7 g/dL (14.0-18.0); Mean Corpuscular HGB CONC 31.6 g/dL (32.0-36.0); Mean Corpuscular Hemoglobin 25.6 pg (27.0-31.0); Mean Corpuscular Volume 81.1 fl (80.0-94.0); Mean Platelet Volume 10.1 fL (7.4-10.4); Platelet Count 122 thou/uL (130-400); Red Blood Cell (RBC) Count 5.36 mill/uL (4.70-6.10); White Blood Cell (WBC) Count 7.1 thou/uL (4.8-10.8)
[2018-01-02 06:01] LABS: Calcium, Ionized 1.2 mmol/L (1.12-1.30); Hematocrit-ABG 46.6 % (42.0-52.0); Hemoglobin (Hb) 13.5 g/dL (14.0-18.0)
[2018-01-02 06:02] LABS: Analyzer IN Cardio ER; Puncture Site LR
[2018-01-02] MEDS ORDERED: hydrALAZINE 20 MG/ML VIAL ONE (06:07)
[2018-01-02] MEDS ORDERED: Metoclopramide HCl 10 MG/2 ML VIAL ONE (06:18)
[2018-01-02] MEDS ORDERED: diphenhydrAMINE 50 MG/ML VIAL ONE (06:18)
[2018-01-02 06:24] LABS: ALT (SGPT) 19 U/L (8-55); AST (SGOT) 18 U/L (5-34); Albumin 3.5 g/dL (3.5-5.0); Alkaline Phosphatase 130 U/L (40-150); Anion Gap 13 mmol/L (10-20); BUN (Urea Nitrogen) 20 mg/dL (8.4-25.7); Bilirubin, Total 0.7 mg/dL (0.2-1.2); Calc. Creatinine Clearance 0 mL/min (70-130); Calcium 8.8 mg/dL (7.8-10.44); Carbon Dioxide 22 mmol/L (22-29); Chloride 98 mmol/L (98-107); Estimated GFR-MDRD 26; Globulin 3.5 g/dL (2.4-3.5); Lipase 41 U/L (8-78); Magnesium 1.9 mg/dL (1.6-2.6); Phosphorus 3.3 mg/dL (2.3-4.7); Potassium 4.2 mmol/L (3.5-5.1); Sodium 129 mmol/L (136-145)
[2018-01-02 06:29] LABS: Glucose 623 mg/dL (70-105)
[2018-01-02] MEDS ORDERED: Insulin Regular 300 UNITS/3 ML VIAL ONE (06:29)
[2018-01-02] MEDS ORDERED: hydrALAZINE 25 MG TAB ONE (08:28)
[2018-01-02] MEDS ORDERED: Carvedilol 6.25 MG TAB PO SCH (08:45)
[2018-01-02] MEDS ORDERED: Lidocaine Viscous Sol 2% 15 ml UD Cup ONE (09:57)
[2018-01-02] MEDS ORDERED: Mag-Al 1200 mg/1200 mg/30 ML UDCUP ONE (09:57)
--- NOTE | 2018-01-02 13:13 | RAD ---
CHEST 1 VIEW: HISTORY: A 57-year-old male with a history of abdominal pain and cramping with a recent diagnosis of pancreati tis. COMPARISON: 12/31/17. FINDINGS: There is some progressive bilateral vascular congestion. Heart size is within normal limits. Possib le small developing bilateral pleural effusions. IMPRESSION: Worsening bilateral vascular congestion with possible mild edema. Slightly more prominent costophren ic angle blunting. No focal confluent process. POS: [facility]
--- NOTE | 2018-01-07 11:48 | EKG ---
Test Reason : ABD PAIN Blood Pressure : / mmHG Vent. Rate : 092 BPM Atrial Rate : 092 BPM P-R Int : 168 ms QRS Dur : 096 ms QT Int : 390 ms P-R-T Axes : 051 027 199 degrees QTc Int : 482 ms Normal sinus rhythm Possible Left atrial enlargement Left ventricular hypertrophy with repolarization abnormality Prolonged QT No STEMI Inverted T waves V4-V6 I, II, aVF Abnormal ECG Confirmed by VIRGINIA Fitzgerald, ZAID ([id number]), script editor NEIDA LOYOLA ([id number]) on 01/07/2018 11:48:08 AM Referred By: Confirmed By:ZAID COLEMAN M.D.
== END 2018-01-02 10:14 | disposition home or self-care (01) ==
LOC: ERS 05:12
DX: E11.65 Type 2 diabetes mellitus with hyperglycemia (principal); I11.0 Hypertensive heart disease with heart failure; I50.9 Heart failure, unspecified; E78.5 Hyperlipidemia, unspecified; I25.2 Old myocardial infarction; Z79.4 Long term (current) use of insulin; Z79.899 Other long term (current) drug therapy
CPT/HCPCS: 36415; 36416; 71045; 80053; 81003; 81015; 82010; 82805; 83690; 83735; 84100; 85025; 93005; 96361; 96365; 96372; 96375; J0360; J1200; J1815; J2405; J2765

== ENCOUNTER 2018-02-25 09:18 | Emergency (ER) | payer MEDICAID ==
[2018-02-25 10:16] LABS: #Basophils 0.1 thou/uL (0.0-0.2); #Eosinphils 0.1 thou/uL (0.0-0.7); #Lymphocytes 0.8 thou/uL (1.20-3.40); #Monocytes 0.3 thou/uL (0.11-0.59); #Neutrophils 4.4 thou/uL (1.40-6.50); %Basophils 0.9 % (0.0-1.0); %Eosinophils 1.6 % (0.0-10.0); %Lymphocytes 14.5 % (21.0-51.0); %Neutrophils 78.1 % (42.0-75.0); Mean Corpuscular HGB CONC 33.4 g/dL (32.0-36.0); Mean Corpuscular Volume 77.8 fl (80.0-94.0); Platelet Count 139 thou/uL (130-400); RBC Distribution Width 14.6 % (11.5-14.5); Red Blood Cell (RBC) Count 5.76 mill/uL (4.70-6.10); White Blood Cell (WBC) Count 5.6 thou/uL (4.8-10.8)
[2018-02-25 10:35] LABS: ALT (SGPT) 10 U/L (8-55); AST (SGOT) 11 U/L (5-34); Albumin 3.3 g/dL (3.5-5.0); Alkaline Phosphatase 149 U/L (40-150); Anion Gap 13 mmol/L (10-20); BUN (Urea Nitrogen) 17 mg/dL (8.4-25.7); Bilirubin, Total 0.9 mg/dL (0.2-1.2); Calc. Creatinine Clearance 0 mL/min (70-130); Calcium 8.9 mg/dL (7.8-10.44); Carbon Dioxide 25 mmol/L (22-29); Chloride 92 mmol/L (98-107); Estimated GFR-MDRD 29; Glucose 507 mg/dL (70-105); Lipase 25 U/L (8-78); Potassium 3.6 mmol/L (3.5-5.1); Protein, Total 7.3 g/dL (6.0-8.3); Sodium 126 mmol/L (136-145)
[2018-02-25] MEDS ORDERED: Ondansetron ODT 4 MG TAB ONE (10:35)
[2018-02-25] MEDS ORDERED: Ketorolac Tromethamine 30 MG/ML VIAL ONE (10:35)
[2018-02-25 10:40] LABS: CKMB 2.4 ng/mL (0-6.6); Troponin I 0.027 ng/mL (< 0.028)
[2018-02-25 12:02] LABS: Bilirubin Negative (Negative); Blood, Urine Trace (Negative); Clarity CLEAR (Clear); Glucose, Urine (Dipstick) >=1000 mg/dL (Negative); Leukocyte Negative (Negative); Nitrite Negative (Negative); Protein, Urine (Dipstick) > or equal to 300 mg/dL (Neg-Trace); Specific Gravity, Urine 1.026 (1.002-1.036); Urobilinogen 0.2 mg/dL (0.2-1.0); pH, Urine 7.5 (5.0-9.0)
[2018-02-25 12:07] LABS: Bacteria/HPF None Seen HPF (None Seen); Hyaline Casts/LPF 0-3 HYALINE CAST LPF (0-3 Hyaline); Squamous Epithelial 0-3 HPF (0-3); WBC/HPF 0-3 HPF (0-3)
== END 2018-02-25 12:03 | disposition home or self-care (01) ==
LOC: ERS 09:18
DX: R10.9 Unspecified abdominal pain (principal); I13.2 Hypertensive heart and chronic kidney disease with heart failure and with stage 5 chronic kidney disease, or end stage renal disease; I50.9 Heart failure, unspecified; N18.6 End stage renal disease; E11.22 Type 2 diabetes mellitus with diabetic chronic kidney disease; E78.1 Pure hyperglyceridemia; I25.2 Old myocardial infarction
CPT/HCPCS: 36415; 36416; 80053; 81003; 81015; 82553; 83690; 84484; 85025; 86850; 86900; 86901; 93005; 96374; J1885; Q0162

== ENCOUNTER 2018-02-26 23:47 | Emergency (ER) | payer MEDICAID, OTHER ==
[2018-02-27 00:24] LABS: #Basophils 0.1 thou/uL (0.0-0.2); #Eosinphils 0.1 thou/uL (0.0-0.7); #Lymphocytes 1.4 thou/uL (1.20-3.40); #Monocytes 0.5 thou/uL (0.11-0.59); #Neutrophils 5.4 thou/uL (1.40-6.50); %Basophils 1.1 % (0.0-1.0); %Eosinophils 1.6 % (0.0-10.0); %Lymphocytes 18.8 % (21.0-51.0); %Monocytes 6.9 % (0.0-10.0); %Neutrophils 71.7 % (42.0-75.0); Hemoglobin 13.5 g/dL (14.0-18.0); Mean Corpuscular HGB CONC 34.8 g/dL (32.0-36.0); Mean Corpuscular Hemoglobin 26.7 pg (27.0-31.0); Mean Corpuscular Volume 76.8 fl (80.0-94.0); Mean Platelet Volume 9.1 fL (7.4-10.4); Platelet Count 154 thou/uL (130-400); RBC Distribution Width 14.6 % (11.5-14.5); Red Blood Cell (RBC) Count 5.05 mill/uL (4.70-6.10); White Blood Cell (WBC) Count 7.6 thou/uL (4.8-10.8)
[2018-02-27 00:44] LABS: ALT (SGPT) 12 U/L (8-55); AST (SGOT) 15 U/L (5-34); Albumin 3.3 g/dL (3.5-5.0); Alkaline Phosphatase 136 U/L (40-150); Anion Gap 18 mmol/L (10-20); BUN (Urea Nitrogen) 30 mg/dL (8.4-25.7); Calc. Creatinine Clearance 0 mL/min (70-130); Calcium 8.3 mg/dL (7.8-10.44); Carbon Dioxide 20 mmol/L (22-29); Chloride 85 mmol/L (98-107); Estimated GFR-MDRD 20; Globulin 3.6 g/dL (2.4-3.5); Lipase 90 U/L (8-78); Potassium 3.2 mmol/L (3.5-5.1); Protein, Total 6.9 g/dL (6.0-8.3); Sodium 120 mmol/L (136-145)
[2018-02-27 00:45] LABS: Acetaminophen Less than 6.0 mcg/mL (10.0-30.0); Alcohol 73 mg/dL (Less than 10); Salicylate Less than 8.0 mg/dL (15.0-30.0)
[2018-02-27 00:52] LABS: Glucose 614 mg/dL (70-105)
[2018-02-27] MEDS ORDERED: Ondansetron ODT 4 MG TAB ONE ×2 (00:59→02:29)
[2018-02-27] MEDS ORDERED: Insulin Regular 300 UNITS/3 ML VIAL ONE (02:36)
[2018-02-27] MEDS ORDERED: Morphine 4 MG/ML VIAL ONE (02:36)
--- NOTE | 2018-02-27 11:13 | RAD ---
CHEST 1 VIEW: HISTORY: Pain. COMPARISON: 01/02/18. FINDINGS: Normal cardiac silhouette. The pulmonary vessels and hilum are normal. Costophrenic angles are joe r. Patchy interstitial opacity in the left lung base. No pneumothorax. IMPRESSION: Left lower lobe patchy interstitial opacity which may be due to infiltrate. Continued surveillance. POS: [facility]
--- NOTE | 2018-02-27 13:30 | CT ---
PRELIMINARY REPORT/[facility]/EMERGENTY AFTER-HOURS PROCEDURE CT Abdomen and Pelvis Without Intravenous Contrast EXAM DATE/TIME: 02/27/2018 3:35 AM CLINICAL HISTORY: 57 years old, male; Pain; Abdominal pain; Generalized; Patient HX: Additional history obtained from e , 57 y/o m with presentation of ETOH intoxication. Ems reports that they found the pt sleeping outs baldev. When asked the pt why he was outside, pt states "i don't know man. I just feel sick. " blood sug ar 480, HX of dm. TECHNIQUE: Axial computed tomography images of the abdomen and pelvis without intravenous contrast. Coronal refo rmatted images were created and reviewed. COMPARISON: No relevant prior studies available. FINDINGS: Lung bases: Unremarkable. No mass. No consolidation. ABDOMEN: Liver: Unremarkable. Gallbladder and bile ducts: Gallbladder not identified - surgical clips present in fossa. No ductal d ilation. Pancreas: Unremarkable. No ductal dilation. Spleen: Unremarkable. No splenomegaly. Adrenals: Unremarkable. No mass. Kidneys and ureters: Unremarkable. No obstructing stones. No hydronephrosis. Stomach and bowel: No evidence of bowel obstruction. Moderate - large amount retained stool material throughout nondilated colon. Sutures involving splenic flexure. No mucosal thickening. PELVIS: Appendix: No findings to suggest acute appendicitis. Bladder: Unremarkable. No stones. Reproductive: Prostate appears within normal limits. ABDOMEN and PELVIS: Intraperitoneal space: Unremarkable. No free air. No significant fluid collection. Bones/joints: Chronic degenerative changes of the lumbar spine. No acute fracture. No dislocation. Soft tissues: Unremarkable. Vasculature: Chronic atherosclerotic calcification of the vasculature. No abdominal aortic aneurysm. Lymph nodes: Unremarkable. No enlarged lymph nodes. IMPRESSION: 1. No evidence of bowel obstruction. 2. Findings suggest some degree of constipation. Clinical correlation is recommended. Thank you for allowing us to participate in the care of your patient. Dictated and Authenticated by: Bari Trevino MD 02/27/2018 4:37 AM Central Time ([place] & [place]) FINAL REPORT EMERGENT AFTER HOURS CT ABDOMEN AND PELVIS WITHOUT IV CONTRAST: DATE: 02/27/18. HISTORY: Mid and lower abdominal pain. IMPRESSION: 1. Post cholecystectomy changes. 2. Vascular calcifications in the abdominal aorta and iliac arteries. 3. No renal or ureteral calculi are seen bilaterally. 4. Postsurgical changes involving the region of the splenic flexure with loops of small bowel seen l ateral to the ascending colon. This is stable from prior exam on 12/31/17. There is no evidence of a bowel obstruction. 5. Constipation. 6. No acute findings are seen on this non-enhanced CT scan of the abdomen and pelvis. 7. Prominent degenerative changes again present in the lower lumbar spine similar to the prior study . 8. Findings are in agreement with the preliminary report by [facility]. POS: [facility]
== END 2018-02-27 05:49 | disposition home or self-care (01) ==
LOC: ERS 23:47
DX: K29.20 Alcoholic gastritis without bleeding (principal); F10.129 Alcohol abuse with intoxication, unspecified; Y90.3 Blood alcohol level of 60-79 mg/100 ml; K59.00 Constipation, unspecified; E78.2 Mixed hyperlipidemia; I25.2 Old myocardial infarction; E11.22 Type 2 diabetes mellitus with diabetic chronic kidney disease; I13.2 Hypertensive heart and chronic kidney disease with heart failure and with stage 5 chronic kidney disease, or end stage renal disease; I50.9 Heart failure, unspecified; N18.6 End stage renal disease; Z99.2 Dependence on renal dialysis
CPT/HCPCS: 36415; 36416; 71045; 74176; 80053; 80307; 82010; 83690; 83735; 85025; 93005; 96361; 96374; 96375; J1815; J2270; Q0162

== ENCOUNTER 2018-02-28 16:27 | Inpatient (IN) | payer MEDICAID, OTHER ==
[2018-02-28 16:39] LABS: #Eosinphils 0.1 thou/uL (0.0-0.7); #Lymphocytes 1.2 thou/uL (1.20-3.40); #Monocytes 0.5 thou/uL (0.11-0.59); #Neutrophils 5.3 thou/uL (1.40-6.50); %Basophils 0.5 % (0.0-1.0); %Eosinophils 0.9 % (0.0-10.0); %Monocytes 6.8 % (0.0-10.0); %Neutrophils 74.8 % (42.0-75.0); Hemoglobin 15.4 g/dL (14.0-18.0); Mean Corpuscular HGB CONC 34.5 g/dL (32.0-36.0); Mean Corpuscular Hemoglobin 26.4 pg (27.0-31.0); Mean Corpuscular Volume 76.4 fl (80.0-94.0); Mean Platelet Volume 8.9 fL (7.4-10.4); Platelet Count 178 thou/uL (130-400); RBC Distribution Width 14.9 % (11.5-14.5); Red Blood Cell (RBC) Count 5.86 mill/uL (4.70-6.10); White Blood Cell (WBC) Count 7.1 thou/uL (4.8-10.8)
[2018-02-28 16:45] LABS: PTT 27.5 SEC (22.9-36.1); Prothrombin Time 13.8 SEC (12.0-14.7)
[2018-02-28 16:51] LABS: Acetaminophen Less than 6.0 mcg/mL (10.0-30.0); Alcohol Less than 10 mg/dL (Less than 10); Salicylate Less than 8.0 mg/dL (15.0-30.0)
[2018-02-28 16:55] LABS: Troponin I 0.103 ng/mL (< 0.028)
[2018-02-28 17:09] LABS: ALT (SGPT) 16 U/L (8-55); AST (SGOT) 23 U/L (5-34); Albumin 3.1 g/dL (3.5-5.0); Alkaline Phosphatase 150 U/L (40-150); Anion Gap 13 mmol/L (10-20); BUN (Urea Nitrogen) 13 mg/dL (8.4-25.7); Calc. Creatinine Clearance 0 mL/min (70-130); Calcium 8.3 mg/dL (7.8-10.44); Carbon Dioxide 25 mmol/L (22-29); Chloride 98 mmol/L (98-107); Estimated GFR-MDRD 44; Globulin 3.5 g/dL (2.4-3.5); Glucose 273 mg/dL (70-105); Potassium 4.2 mmol/L (3.5-5.1); Protein, Total 6.6 g/dL (6.0-8.3); Sodium 132 mmol/L (136-145)
[2018-02-28 17:12] LABS: CK (CPK) 279 U/L (30-200)
--- NOTE | 2018-02-28 17:19 | CT ---
CT BRAIN: HISTORY: Unresponsive during dialysis. Slurred speech. COMPARISON: 04/17/2014 TECHNIQUE: Noncontrast enhanced CT images of the brain were obtained on 02/28/2018. FINDINGS: Noncontrast enhanced CT images of the brain demonstrate the brain to be unremarkable. No evidence of intracranial masses, hemorrhages, strokes, or contusions seen. The ventricles are of normal size. No significant evidence of acute intracranial abnormalities seen. IMPRESSION: Unremarkable CT brain. Findings discussed with Dr. Lee at 4:39 p.m. on 02/28/2018 CODE CR POS: [facility]
[2018-02-28] MEDS ORDERED: Acetaminophen 500 MG TAB ONE (18:51)
[2018-02-28] MEDS ORDERED: Enoxaparin Sodium 80 MG/0.8 ML SYRINGE ONE (18:51)
[2018-02-28 20:29] LABS: Troponin I 0.082 ng/mL (< 0.028)
[2018-02-28 20:41] VITALS: BMI 24.4
[2018-02-28] MEDS ORDERED: Ondansetron HCl/PF 4 MG/2 ML Vial IVP PRN (20:42)
[2018-02-28] MEDS ORDERED: Acetaminophen 325 MG TAB PO PRN (20:42)
[2018-02-28] MEDS ORDERED: Ondansetron ODT 4 MG TAB SL PRN (20:42)
--- NOTE | 2018-02-28 20:52 | RAD ---
ABDOMEN TWO VIEWS: CHEST ONE VIEW: HISTORY: Emesis. No bowel movement in one week. COMPARISON: CT from 02/27/2018. FINDINGS: The lungs are clear. No pneumothorax or effusion. The cardiac silhouette and mediastinal contour ar e within normal limits. Moderate stool burden. On the upright view, there is no free air in the hemidiaphragms, although the medial right hemidiaphragm is poorly evaluated. Right upper quadrant surgical clips. IMPRESSION: Moderate stool burden, suggesting constipation. POS: [facility]
[2018-02-28] MEDS ORDERED: Polyethylene Glycol 3350 17 GM Packet PO SCH (23:15)
[2018-03-01] MEDS ORDERED: Bisacodyl 5 MG TAB PO PRN (00:09)
[2018-03-01] MEDS ORDERED: Mag-Al 1200 mg/1200 mg/30 ML UDCUP PO PRN (00:09)
[2018-03-01] MEDS ORDERED: Calcium Carbonate 500 MG ChewTAB PO PRN (00:09)
[2018-03-01] MEDS: Milk Of Magnesia 30 ML UDCUP PO PRN (00:40)
[2018-03-01] MEDS: hydrALAZINE 20 MG/ML VIAL SLOW IVP PRN ×2 (01:34→12:01)
--- NOTE | 2018-03-01 02:00 | HP ---
MGMT ANALYST: Abe Martinez M.D. CHIEF COMPLAINT: Nausea, vomiting. HISTORY OF PRESENT ILLNESS: This is a 57-year-old male with known end-stage renal disease, hypertens ion, type 2 diabetes, and prior known history of nausea and vomiting who presents with further compla ints of the above. Also sent in from his hemodialysis because he had a loss of consciousness or sync opal type episode during dialysis, earlier today of which the patient states he remembers very little . Unfortunately, the patient is a very poor historian of his current acute illness, particularly of his syncopal event. He denies any prior similar episodes, reports that he recently started dialysis approximately 3-4 months ago and had not have any similar symptoms. The patient endorses having a fair amount of nausea and abdominal pain. He states that sometimes it is better with eating, but it typically is always present and comes and goes. He also endorses being constipated over the last 6 days. Of note, the nausea and abdominal pain is not particularly acute and has not had any progressive worsening over the last 1-2 months per the patient. REVIEW OF SYSTEMS: As per HPI. Constitutional: No significant weight change the patient is aware o f. No active fevers or chills in the last month. HEENT: No new headaches, lightheadedness or visio n changes other than the loss of consciousness earlier today during hemodialysis. The patient report s that he "fell asleep" next thing he knew he was told he was being brought into the emergency depart ment told that he would not wake up. Cardiovascular: No chest pain or chest pressure. No left-side d arm numbness or tingling. No episodes of diaphoresis. Positive for nausea, vomiting as noted abov e. Respiratory: No new cough. No recent upper respiratory infection, no congestion, no shortness o f breath with exertion that is more than his baseline. Gastrointestinal: As per HPI. Genitourinary : Denies any change in his urinary output which is very little. Denies any dysuria. Musculoskeleta l: Denies any new myalgias or arthralgias. Remainder of the review of systems otherwise negative. PAST MEDICAL HISTORY: As per HPI above includes, 1. End-stage renal disease. 2. Hypertension. 3. Type 2 diabetes. 4. Hyperlipidemia. 5. Prior known history of coronary artery disease with a history of diastolic heart failure. PAST SURGICAL HISTORY: 1. Status post cholecystectomy. 2. Status post EGD. 3. Status post fistula creation of the right arm. HOME MEDICATIONS: Please see the EMR for full details. The patient unfortunately is a poor historia n regarding his home medications as he does not have a PCP and is unable to state which ones he gabbi bartlett takes on a regular basis. ALLERGIES: No known drug allergies. FAMILY HISTORY: Significant for coronary artery disease, but negative for stroke or cancer. SOCIAL HISTORY: The patient is on dialysis. Denies any active tobacco, alcohol, or illicit drug use . Wishes to be FULL CODE at this point in time. PHYSICAL EXAMINATION: GENERAL: The patient is awake, alert, appropriate and oriented x3 in no acute distress, conversant, appears to be marginal, but reasonable historian. HEENT: Normocephalic, atraumatic. Moist mucous membranes. Equal ocular motions are intact. CARDIOVASCULAR: S1, S2. No murmurs, rubs or gallops. Pulses 2+ bilateral upper extremities, no pit ting pedal edema. RESPIRATORY: Reasonable air movement. No conversational dyspnea. No wheezes, rales or rhonchi. LUNGS: Clear to auscultation bilaterally. ABDOMEN: Positive bowel sounds, soft, nontender to palpation, nondistended. MUSCULOSKELETAL: Moving all 4 extremities independently. LABORATORY DATA AND IMAGING: WBC 7.1, hemoglobin 15.4, hematocrit 44.8, platelets 178. PT 13.8, INR 1.0. Sodium 132, potassium 4.2, chloride 98, BUN 13, creatinine 1.92, glucose 273. Lactic acid 1.3 , calcium 8.3, total bilirubin 1.0, AST 23, ALT 16, alkaline phosphatase 150. Creatine kinase 279. Troponin 0.082 followed by 0.090. Total protein 6.6, albumin 3.1. Toxicology is negative for salicy lates, acetaminophen and alcohol. On 02/28/2018, brain CT, impression: "Unremarkable CT scan." On 02/28/2018, acute abdomen series, impression: "Moderate stool burden, suggesting constipation." ASSESSMENT AND PLAN: A 57-year-old male with a question of a syncopal episode. 1. Brain CT has been negative. The patient has resolved back to his baseline. We will check orthos tatic vital signs. Closely monitor for any changes in mental status. 2. Elevated troponin. I appreciate Cardiology consultation. Continue to closely monitor. Of note, this is in the setting of end-stage renal disease. Concern for atypical chest pain in the form of n ausea and vomiting. 3. Abdominal pain, nausea, vomiting per history, but not actively at this point in time. Check a se rum lipase. The patient has been hospitalized for this before. Start IV Protonix. 4. End-stage renal disease, on hemodialysis to continue with such. I appreciate Nephrology consulta tion. DIET: Renal. ACTIVITY: As tolerated. Deep venous thrombosis prophylaxis, heparin. Thank you for asking me to care for your patient. If questions or concerns, please contact me at [facility].
[2018-03-01 05:45] LABS: #Basophils 0.1 thou/uL (0.0-0.2); #Eosinphils 0.1 thou/uL (0.0-0.7); #Lymphocytes 1.4 thou/uL (1.20-3.40); #Monocytes 0.5 thou/uL (0.11-0.59); #Neutrophils 4.7 thou/uL (1.40-6.50); %Basophils 0.9 % (0.0-1.0); %Eosinophils 0.8 % (0.0-10.0); %Lymphocytes 21.4 % (21.0-51.0); %Monocytes 6.7 % (0.0-10.0); %Neutrophils 70.2 % (42.0-75.0); Hemoglobin 14.1 g/dL (14.0-18.0); Mean Corpuscular HGB CONC 32.9 g/dL (32.0-36.0); Mean Corpuscular Hemoglobin 25.8 pg (27.0-31.0); Mean Corpuscular Volume 78.4 fl (80.0-94.0); Mean Platelet Volume 10.1 fL (7.4-10.4); Platelet Count 166 thou/uL (130-400); Red Blood Cell (RBC) Count 5.47 mill/uL (4.70-6.10); White Blood Cell (WBC) Count 6.8 thou/uL (4.8-10.8)
[2018-03-01 06:15] LABS: Anion Gap 17 mmol/L (10-20); BUN (Urea Nitrogen) 20 mg/dL (8.4-25.7); Calc. Creatinine Clearance 40 mL/min (70-130); Calcium 8.3 mg/dL (7.8-10.44); Carbon Dioxide 18 mmol/L (22-29); Cardiac Risk 5.4 (Less than 4.5); Chloride 95 mmol/L (98-107); Cholesterol 214 mg/dl (< 200 Desired); Estimated GFR-MDRD 36; Glucose 386 mg/dL (70-105); HDL Cholesterol 40 mg/dL (>60 Neg Risk); LDL Cholesterol, Calculated 127 mg/dL; Lipase 38 U/L (8-78); Potassium 4.2 mmol/L (3.5-5.1); Sodium 126 mmol/L (136-145); Triglycerides 233 mg/dL (Less than 150)
[2018-03-01] MEDS: Pantoprazole 40 MG VIAL IVP SCH ×2 (09:09→21:34)
[2018-03-01] MEDS: Docusate 100 MG CAP PO SCH ×2 (09:10→21:47)
[2018-03-01] MEDS: Carvedilol 25 MG TAB PO SCH ×2 (09:10→17:01)
[2018-03-01] MEDS: Aspirin 81 mg Enteric Coated Tablet PO SCH (09:12)
[2018-03-01] MEDS: hydrALAZINE 25 MG TAB PO SCH ×3 (09:12→21:47)
[2018-03-01] MEDS: Heparin 5,000 UNITS/ML VIAL SC SCH ×3 (09:13→21:33)
--- NOTE | 2018-03-01 09:25 | ULT ---
BILATERAL CAROTID DUPLEX ULTRASOUND: DATE: 03/01/18 HISTORY: Syncope. TECHNIQUE: Lafleur scale ultrasound with color flow and spectral Doppler imaging of the extracranial carotid artery systems performed. FINDINGS: There is mild plaque formation in the left carotid bulb and proximal ICA. The peak systolic velocity in the right ICA measures 70 cm/second with an end-diastolic velocity of 1 2 cm/second and a systolic ratio of 0.66. The peak systolic velocity in the left ICA measures 68 cm/second with an end-diastolic velocity of 18 cm/second and a systolic ratio of 0.97. Flow in both vertebral arteries remains antegrade. IMPRESSION: No evidence of hemodynamically significant stenosis. POS: [facility]
[2018-03-01] MEDS: Insulin NPH/Reg Insulin Hm 300 UNITS/3 ML VIAL SC SCH ×2 (09:41→17:01)
[2018-03-01] MEDS ORDERED: Dextrose 50% Abboject 50 ML SYRINGE IVP PRN (11:49)
[2018-03-01] MEDS ORDERED: Dextrose 5% in Water 1,000 ML IV PRN (11:49)
[2018-03-01] MEDS: HumaLOG 300 UNITS/3 ML VIAL SC PRN (12:01)
--- NOTE | 2018-03-01 14:03 | CON ---
DATE OF CONSULTATION: 03/01/2018 HISTORY OF PRESENT ILLNESS: Patient is a 57-year-old gentleman with a history of hypertension and en d-stage renal disease who presented with slurred speech and altered mental status. The patient has a long history of substance abuse. He has a history of substance abuse and noncompliance. He has bee n admitted on multiple occasions with poorly controlled hypertension. The patient states he has been on dialysis for the past 4 years. The patient also suffered a respiratory arrest in October of this year. The patient had an echocardiogram done which has revealed him to have normal left ventricular ejection fraction 60%-65%. From a cardiac standpoint, he has been doing relatively well. He denies having any chest pain. The patient denies having any dyspnea. The patient reported having a few da ys nausea and vomiting. He was undergoing dialysis and apparently lost consciousness. The patient d eveloped slurred speech and was brought for further evaluation. PAST MEDICAL HISTORY: Significant for, 1. Hypertension. 2. Diabetes mellitus. 3. End-stage renal disease. 4. Dyslipidemia. PAST SURGICAL HISTORY: He has had cholecystectomy, EGD. MEDICATIONS: See nursing list. ALLERGIES: None. FAMILY HISTORY: Positive family history of heart disease. SOCIAL HISTORY: He is a former user of illicit drugs. He denies any use of tobacco. PHYSICAL EXAMINATION: GENERAL: This is a well-developed gentleman in no acute distress. VITAL SIGNS: Blood pressure 189/97. NECK: Showed no jugular venous distention. LUNGS: Clear to auscultation. HEART: Regular rate and rhythm, normal S1 and S2. ABDOMEN: Nondistended. EXTREMITIES: Showed no edema, but he has an AV fistula. SKIN: Warm, dry. NEUROLOGIC: Nonfocal. VASCULAR: Radial pulses are 2+. LABORATORY DATA: Sodium 126, potassium 4.2, chloride 95, bicarbonate 18, BUN 20, creatinine 2.3, glu cose 386. His white blood cell count was 6.8, hemoglobin 14.1, hematocrit 42.8, and his platelets ar e 166. His EKG revealed normal sinus rhythm with an ST-T wave abnormality suggestive of ischemia. IMPRESSION: 1. Altered mental status, possible transient ischemic attack. 2. Malignant hypertension. 3. Diabetes mellitus. 4. Dyslipidemia. 5. End-stage renal disease. 6. History of substance abuse. 7. Noncompliance. 8. Indeterminate troponin level. This gentleman presents with altered mental status and slurred speech. He may have had a TIA. The p atient undergoing a carotid ultrasound. The patient has a long history of poorly controlled hyperten shekhar and noncompliance. From a cardiac standpoint, would recommend he would be treated with nifedipi ne since he has normal left ventricular systolic function. We will add this to his medical regimen. We will follow this patient with you through his hospitalization.
[2018-03-01 21:05] LABS: Actual Bicarbonate (HCO3a) 27.1 mEq/L (22-26); Base Excess (BEa) 2.2 mEq/L (0 (+/-) 2.5); CO2 Tension 43.5 mmHg (35.0-45.0); O2 Tension (PaO2) 93.7 mmHg (80.0-100.0); pH, Arterial 7.41 (7.35-7.45)
[2018-03-01 21:06] LABS: Calcium, Ionized 1.1 mmol/L (1.12-1.30); Puncture Site RRA
[2018-03-01 21:07] LABS: ALV-art Gradient 0.605 (0-20)
[2018-03-01] MEDS: Atorvastatin Calcium 40 MG TAB PO SCH (21:46)
[2018-03-02] MEDS: hydrALAZINE 20 MG/ML VIAL SLOW IVP PRN (04:53)
[2018-03-02 08:19] LABS: #Eosinphils 0.1 thou/uL (0.0-0.7); #Monocytes 0.6 thou/uL (0.11-0.59); #Neutrophils 6.5 thou/uL (1.40-6.50); %Basophils 0.4 % (0.0-1.0); %Eosinophils 1.7 % (0.0-10.0); %Lymphocytes 12.3 % (21.0-51.0); %Neutrophils 78.6 % (42.0-75.0); Hemoglobin 13.8 g/dL (14.0-18.0); Mean Corpuscular HGB CONC 33.2 g/dL (32.0-36.0); Mean Corpuscular Volume 78.3 fl (80.0-94.0); Mean Platelet Volume 10.1 fL (7.4-10.4); Platelet Count 169 thou/uL (130-400); RBC Distribution Width 15.2 % (11.5-14.5); Red Blood Cell (RBC) Count 5.32 mill/uL (4.70-6.10); White Blood Cell (WBC) Count 8.3 thou/uL (4.8-10.8)
--- NOTE | 2018-03-02 08:29 | CON ---
DATE OF CONSULTATION: 03/02/2018 CONSULTING PHYSICIAN: Abe Martinez M.D. REQUESTING PHYSICIAN: Dr. Joel. REASON FOR CONSULTATION: The need for maintenance hemodialysis. IMPRESSION: 1. End-stage renal disease, hemodialysis dependent on Wednesday, Wednesday, Wednesday schedule. 2. Nausea and vomiting, query cause. 3. Diabetes mellitus, poorly controlled. PLAN: Patient is to remain on his current schedule on Wednesday, Wednesday, and Wednesday. There is no em ergent indication for renal replacement therapy. HISTORY OF PRESENT ILLNESS: This is a 57-year-old gentleman with end-stage renal disease, hemodialys is dependent, who lost consciousness during dialysis, presented here, noted with hyperglycemia. At t his time of history taking, patient seems to be doing much better. Patient also did complain of naus ea and abdominal pain. PAST MEDICAL HISTORY: Significant for end-stage renal disease, hemodialysis dependent; diabetes yina itus, suboptimally controlled; hypertension; dyslipidemia; coronary artery disease. MEDICATIONS: Reviewed and as documented on [employer]. ALLERGIES: No known drug allergy. FAMILY HISTORY: Significant for cardiac disease. SOCIAL HISTORY: Denies alcohol, tobacco, or illicit drug use. REVIEW OF SYSTEMS: As documented in the body of the history. All the other systems were reviewed an d found not to be significantly related to presenting illness. PHYSICAL EXAMINATION: Patient noted with the following vital signs. VITAL SIGNS: Afebrile, temperature 98.2, pulse 77, respiratory rate of 16, O2 sat 96%, blood pressur e 150/80. HEENT: Unremarkable. Moist oral mucosa. NECK: Supple, no conjunctival injection or icterus. CARDIOVASCULAR SYSTEM: First and second heart sounds were heard. RESPIRATORY SYSTEM: Clear to auscultation. DIGESTIVE SYSTEM: Revealed a benign abdomen with positive bowel sounds. EXTREMITIES: No peripheral edema. SKIN: No new gross rash. LYMPHATICS: No peripheral lymphadenopathy. SUMMARY: A 57-year-old gentleman with end-stage renal disease, hemodialysis dependent, who presented here status post syncope in dialysis unit. Thank you for this consultation. We will follow with you.
[2018-03-02 08:33] LABS: Anion Gap 13 mmol/L (10-20); BUN (Urea Nitrogen) 30 mg/dL (8.4-25.7); Calc. Creatinine Clearance 32 mL/min (70-130); Calcium 8.5 mg/dL (7.8-10.44); Carbon Dioxide 23 mmol/L (22-29); Chloride 95 mmol/L (98-107); Estimated GFR-MDRD 26; Glucose 364 mg/dL (70-105); Potassium 3.7 mmol/L (3.5-5.1); Sodium 127 mmol/L (136-145)
[2018-03-02] MEDS: Aspirin 81 mg Enteric Coated Tablet PO SCH (13:30)
[2018-03-02] MEDS: Docusate 100 MG CAP PO SCH ×2 (13:30→23:09)
[2018-03-02] MEDS: Carvedilol 25 MG TAB PO SCH ×2 (13:30→17:20)
[2018-03-02] MEDS: Insulin NPH/Reg Insulin Hm 300 UNITS/3 ML VIAL SC SCH ×2 (13:30→16:44)
[2018-03-02] MEDS: Heparin 5,000 UNITS/ML VIAL SC SCH ×3 (13:31→23:09)
[2018-03-02] MEDS: hydrALAZINE 25 MG TAB PO SCH ×3 (13:31→23:09)
[2018-03-02] MEDS: Pantoprazole 40 MG VIAL IVP SCH ×2 (13:31→23:10)
--- NOTE | 2018-03-02 13:52 | MRI ---
MRI BRAIN WITHOUT CONTRAST: Technique: Multiplanar, multisequence MRI images were obtained of the brain. History: Mental status change. TIA. FINDINGS: Ventricles have normal size and position. There is abnormal white matter intensity seen on FLAIR and T2 sequence. These are seen primarily in periventricular white matter and centum semiovale regions. T hese white matter signal abnormalities show perpendicular distribution to the ventricles. There is an area of restricted diffusion in the brain stem at the level of the [place] on the left. Ther e is subtle FLAIR signal at this location. There is only mild diffusion signal abnormality, however, the findings are worrisome for brain stem infarct, possibly subacute. There is abnormal FLAIR and T2 signal in the midbrain on the right at the level of the cerebral pedun cles. There is no restricted diffusion at this location, however, the degree of FLAIR and T2 signal i s of concern. This area is low T1 signal. Considerations include old infarct and neoplasm. Post contr ast MRI is recommended to further evaluate. The intracranial internal carotid arteries and proximal cerebral arteries show flow voids. IMPRESSION: 1. Subtle area of restricted diffusion in the brain stem at the level of the chelsey on the left concern ing for brain stem infarct, possibly subacute. 2. Abnormal high FLAIR and T2 signal in the midbrain on the right at the level of the cerebral pedunc les. NO restricted diffusion is seen at this location. Findings could represent a remote brain stem i nfarct, however, post contrast images are recommended to exclude neoplasm at this location. 3. Abnormal deep white matter signal seen in both cerebral hemispheres. These findings may represent moderate to severe chronic ischemic white matter change. The orientation is suggestive of a demyelina ting process. POS: [facility]
[2018-03-02] MEDS: HumaLOG 300 UNITS/3 ML VIAL SC PRN (16:47)
--- NOTE | 2018-03-02 21:52 | PDOC.PN ---
- Subjective Encounter Start Date: 03/02/18 Encounter Start Time: 13:00 Patient is seen today, He just returned from MRI, pt had Code green Last night, patient was unresponsive, he says he was in deep sleep, all vital remained normal. Pt says this was happening frequently and happened at Dialysis for that reason he came to Hospital. No h/o Sleep Apnea. - Objective Resuscitation Status: Resuscitation Status FULL:Full Resuscitation MAR Reviewed: Yes Vital Signs & Weight: Vital Signs (12 hours) Temp Pulse Resp BP Pulse Ox 03/02/18 16:00 98.9 F 85 16 135/77 96 03/02/18 15:13 77 03/02/18 13:31 77 03/02/18 12:04 97.4 F L 85 18 161/90 H 97 Weight Weight 186 lb I&O: 03/01/18 03/02/18 03/03/18 06:59 06:59 06:59 Intake Total 500 1200 1460 Output Total 550 1550 3300 Balance -50 350 -8980 Result Diagrams: 03/02/18 08:02 03/02/18 08:02 Additional Labs: Accuchecks 03/02/18 03/02/18 03/02/18 20:30 18:38 16:43 POC Glucose 301 H 432 H 327 H 03/02/18 05:05 POC Glucose 321 H EKG Reviewed by me: Yes Phys Exam - Physical Examination HEENT: PERRLA, moist MMs Neck: no nodes, no JVD Respiratory: no wheezing, no rales Cardiovascular: RRR, no significant murmur Gastrointestinal: soft, non-tender Musculoskeletal: no edema, pulses present Neurological: non-focal, normal sensation, moves all 4 limbs Dx/Plan (1) TIA (transient ischemic attack) Status: Acute Comment: CT neg, Persitant Drop attacks, Carotid US normalm, pending MRI. NEurology consultation. (2) NSTEMI (non-ST elevated myocardial infarction) Code(s): I21.4 - NON-ST ELEVATION (NSTEMI) MYOCARDIAL INFARCTION Status: Acute Comment: Cardiology consulted. Pt on Aspirin/ BB. Suggested Nifedepine. Likely from poorly controlled HTN. (3) ESRD (end stage renal disease) on dialysis Code(s): N18.6 - END STAGE RENAL DISEASE; Z99.2 - DEPENDENCE ON RENAL DIALYSIS Status: Acute Comment: On HD per nephrology. (4) Malignant hypertension Code(s): I10 - ESSENTIAL (PRIMARY) HYPERTENSION Status: Acute (5) Cocaine abuse Code(s): F14.10 - COCAINE ABUSE, UNCOMPLICATED Status: Chronic (6) Coronary artery disease Code(s): I25.10 - ATHSCL HEART DISEASE OF [place] CORONARY ARTERY W/O ANG PCTRS Status: Chronic Qualifiers: Coronary Disease-Associated Artery/Lesion type: [place] artery [place] vs. transplanted heart: [place] heart Associated angina: without angina Qualified Code(s): I25.10 - Atherosclerotic heart disease of [place] coronary artery without angina pectoris Comment: ERIK Moya. (7) Diabetes mellitus type 2 in nonobese Code(s): E11.9 - TYPE 2 DIABETES MELLITUS WITHOUT COMPLICATIONS Status: Chronic Comment: uncontrolled - Plan cont current plan of care, PT/OT, incentive spirometry, out of bed/ambulate, DVT proph w/SCDs * . - Discharge Day Encounter end time: 13:35 Review of Systems - Review of Systems Constitutional: negative: fever, chills, sweats, weakness, malaise, other Eyes: negative: Pain, Vision Change, Conjunctivae Inflammation, Eyelid Inflammation, Redness, Other ENT: negative: Ear Pain, Ear Discharge, Nose Pain, Nose Discharge, Nose Congestion, Mouth Pain, Mouth Swelling, Throat Pain, Throat Swelling, Other Respiratory: negative: Cough, Dry, Shortness of Breath, Hemoptysis, SOB with Excertion, Pleuritic Pain, Sputum, Wheezing Cardiovascular: negative: chest pain, palpitations, orthopnea, paroxysmal nocturnal dyspnea, edema, light headedness, other Gastrointestinal: negative: Nausea, Vomiting, Abdominal Pain, Diarrhea, Constipation, Melena, Hematochezia, Other Genitourinary: negative: Dysuria, Frequency, Incontinence, Hematuria, Retention , Other Musculoskeletal: negative: Neck Pain, Shoulder Pain, Arm Pain, Back Pain, Hand Pain, Leg Pain, Foot Pain, Other Skin: negative: Rash, Lesions, Kody, Bruising, Other - Medications/Allergies Allergies/Adverse Reactions: Allergies Allergy/AdvReac Type Severity Reaction Status Date / Time No Known Allergies Allergy Verified 02/18/15 19:53 Medications: Current Medications Al Hydroxide/Mg Hydroxide (Maalox) 30 ml PO Q6H PRN PRN Reason: Heartburn or Indigestion Last Admin: 03/02/18 06:56 Dose: 30 ml Aspirin (Ecotrin) 81 mg PO DAILY [facility] Last Admin: 03/02/18 13:30 Dose: Not Given Atorvastatin Calcium (Lipitor) 40 mg PO HS [facility] Last Admin: 03/01/18 21:46 Dose: Not Given Bisacodyl (Dulcolax) 10 mg PO DAILYPRN PRN PRN Reason: Constipation Calcium Carbonate (Tums) 1,000 mg PO Q4H PRN PRN Reason: Heartburn or Indigestion Carvedilol (Coreg) 12.5 mg PO BID-[facility] Last Admin: 03/02/18 17:20 Dose: 12.5 mg Dextrose/Water (Dextrose 50%) 25 gm IVP PRN PRN PRN Reason: HYPOGLYCEMIA PROTOCOL Docusate Sodium (Colace) 100 mg PO BID [facility] Last Admin: 03/02/18 13:30 Dose: Not Given Glucagon (Glucagon) 1 mg IM PRN PRN PRN Reason: HYPOGLYCEMIA PROTOCOL Heparin Sodium (Porcine) (Heparin) 5,000 units SC TID [facility] Last Admin: 03/02/18 15:13 Dose: 5,000 units Hydralazine HCl (Apresoline) 10 mg SLOW IVP Q4H PRN PRN Reason: Hypertension Last Admin: 03/02/18 04:53 Dose: 10 mg Hydralazine HCl (Apresoline) 50 mg PO TID [facility] Last Admin: 03/02/18 15:13 Dose: 50 mg Dextrose/Water (D5w) 1,000 mls @ 0 mls/hr IV INF PRN; As Directed PRN Reason: HYPOGLYCEMIA PROTOCOL Insulin Human Isoph/Insulin Regular (Humulin 70/30) 15 units SC BID-[facility] Last Admin: 03/02/18 16:44 Dose: 15 unit Insulin Human Lispro (Humalog) 0 units SC .MODERATE SLIDING SC PRN; Protocol PRN Reason: MODERATE SLIDING SCALE Last Admin: 03/02/18 16:47 Dose: 8 unit Insulin Human Lispro (Humalog) 0 units SC .BEDTIME SLIDING SC PRN; Protocol PRN Reason: BEDTIME SLIDING SCALE Magnesium Hydroxide (Milk Of Magnesium) 30 ml PO DAILYPRN PRN PRN Reason: Constipation Last Admin: 03/01/18 00:40 Dose: 30 ml Pantoprazole Sodium (Protonix) 40 mg IVP Q12HR [facility] Last Admin: 03/02/18 13:31 Dose: Not Given Sodium Chloride (Flush - Normal Saline) 10 ml IV Q12HR [facility] Last Admin: 03/02/18 13:31 Dose: Not Given
[2018-03-02] MEDS: Atorvastatin Calcium 40 MG TAB PO SCH (23:09)
--- NOTE | 2018-03-03 02:22 | CON ---
DATE OF CONSULTATION: 03/02/2018 REFERRING PHYSICIAN: Wyatt Martins MD REASON FOR CONSULTATION: Stroke. HISTORY OF PRESENT ILLNESS: Mr. Loo is a pleasant 57-year-old -[place] male who has been c onsulted for evaluation of stroke. History was obtained from patient's medical chart as well as jonah ent's nurse for the day. Apparently, the patient has multiple medical problems including hypertensio n; diabetes; end-stage renal disease, on dialysis. He presented after he had an episode of loss of c onsciousness while undergoing dialysis. After arrival, he was complaining of having abdominal pain a nd nausea. He was admitted for further workup for this syncopal event. He had an MRI brain done tod ay, which had shown acute left pontine ischemic infarct, as well as right mid brain abnormality indic ative of remote brainstem infarct. For this reason, I was being consulted. I have received a phone call from the nurse to come and evaluate the patient urgently, as the patient was having recurrent ep isode of decreased level of arousal and syncopal-type event. According to the nurse, he suddenly bec ethan unresponsive. On deep stimulation, he did nod his head, but did not communicate and did not foll ow any commands. I evaluated the patient within 5 minutes of receiving a phone call and at that time , the patient seemed lethargic and disoriented. He was having dysarthric, incoherent speech at that time. His blood pressure was noted to be 93/52 and his blood sugar was noted to be 432. Past medical history, past surgical history, family history, social history, current medications, and allergies are reviewed. They are as dictated in H&P note done by Dr. Anna Hatch, done on 03/01. REVIEW OF SYSTEMS: Unable to perform. PHYSICAL EXAMINATION: VITAL SIGNS: Blood pressure of 93/52, pulse of 85, temperature of 98.9, respirations of 16, O2 sats 96% on room air. GENERAL: Well-developed, well-nourished, -[place] male in no apparent distress. RESPIRATORY: Clear to auscultation bilaterally. CARDIOVASCULAR: Regular rate and rhythm. NEUROLOGIC: Mental status: The patient is awake, but disoriented to person, place, and time. His s peech is incoherent and he does not follow any commands. Cranial nerves: Pupils are 3 mm and reacti ve. He blinks to threat on both sides. Face appears symmetric. Tongue and uvula are midline. Alize r exam showed normal tone and bulk. He spontaneously moves both upper and lower extremities. He wit hdraws to noxious stimuli in both upper and lower extremities. Deep tendon reflexes are hyperreflexi ve throughout. Babinski equivocal bilaterally. LABORATORY DATA: Labs are reviewed, which included CBC, BMP, glucose level, which is significant for hemoglobin 13.1, hematocrit of 41.6, sodium of 127, BUN of 30, creatinine of 3.05, glucose of 432, o therwise unremarkable. IMAGING STUDIES: MRI brain without contrast done this morning was reviewed, which showed acute left pontine infarct. There is also T2 signal abnormality in the right mid brain and thalamic region sugg estive of prior ischemic infarct. IMPRESSION: 1. Acute left pontine ischemic infarct. 2. Hypotension. 3. Syncopal events, likely due to hypotension. Mr. Loo is a pleasant 57-year-old -[place] male, who presented with the episode of syncope while undergoing dialysis. He had another event today, which I had witnessed. This was in conjuncti on with a very low blood pressure as well as very high blood glucose level. I have reviewed the MRI of the brain that was done earlier today, which did show acute left pontine ischemic infarct. This i s likely related to his underlying risk factors including high blood pressure, diabetes, and hypercho lesterolemia. At this time, I have advised the nurse to give him normal saline bolus to improve his blood pressure. He may need to be moved to the stroke unit for close monitoring. We may obtain EEG tomorrow morning. I will recommend changing his aspirin to 325 mg daily for secondary stroke prevent ion. Consult PT, OT, speech therapy in the morning. Continue supportive care. Thank you for consultation.
[2018-03-03] MEDS: HumaLOG 300 UNITS/3 ML VIAL SC PRN ×3 (04:40→14:34)
--- NOTE | 2018-03-03 09:01 | PRG ---
DATE OF SERVICE: 03/02/2018 SUBJECTIVE: The patient was seen and examined today at dialysis with no new complaint and the events of yesterday including CODE noted with the following vital signs. PHYSICAL EXAMINATION: VITAL SIGNS: Afebrile, temperature 97, pulse 85, respiratory rate of 18, O2 sat of 97% with blood pr essure 161/90. HEENT: Unremarkable. Moist oral mucosa. NECK: Supple, no conjunctival injection or icterus. CARDIOVASCULAR SYSTEM: First and second heart sounds were heard. RESPIRATORY SYSTEM: Clear to auscultation. DIGESTIVE SYSTEM: Revealed a benign abdomen with positive bowel sounds. EXTREMITIES: No peripheral edema. SKIN: No new gross rash. LYMPHATICS: No peripheral lymphadenopathy. IMPRESSION: 1. End-stage renal disease on hemodialysis, due for dialysis today. 2. Diabetes mellitus, suboptimally controlled. 3. Hypertension. PLAN: 1. The patient to continue with current regimen of hemodialysis Wednesday, Wednesday, and Wednesday. 2. Further management to be dependent on the clinical course including the disposition planning.
[2018-03-03] MEDS: Insulin NPH/Reg Insulin Hm 300 UNITS/3 ML VIAL SC SCH ×2 (09:28→18:00)
[2018-03-03] MEDS: Carvedilol 25 MG TAB PO SCH ×2 (09:29→18:01)
[2018-03-03] MEDS: hydrALAZINE 25 MG TAB PO SCH ×3 (09:29→20:53)
[2018-03-03] MEDS: Pantoprazole 40 MG VIAL IVP SCH ×2 (09:29→20:53)
[2018-03-03] MEDS: Aspirin 81 mg Enteric Coated Tablet PO SCH (09:29)
[2018-03-03] MEDS: Docusate 100 MG CAP PO SCH ×2 (09:29→20:54)
[2018-03-03] MEDS: Heparin 5,000 UNITS/ML VIAL SC SCH ×3 (09:30→20:54)
--- NOTE | 2018-03-03 10:36 | PQF ---
CLINICAL DOCUMENTATION IMPROVEMENT CLARIFICATION FORM: ICD-10 Updated PLEASE DO AN ADDENDUM TO THE PROGRESS NOTE WITH ANY DOCUMENTATION UPDATES OR ADDITIONS AND CARRY THROUGH TO DC SUMMARY. THANK YOU. DATE: 03/03/18 ATTN: Dr. Martins Please exercise your independent, professional judgment in responding to the clarification form. Clinical indicators are provided on the bottom of this form for your review Please check appropriate box(s): AMI TYPE: [ x] NSTEMI [ ] AMI Type II [ x ] Demand ischemia [ ] Other diagnosis [ ] Unable to determine In addition, please specify: Present on Admission (POA): [ x ] Yes [ ] No [ ] Unable to determine CLINICAL INDICATORS - SIGNS / SYMPTOMS / LABS TROPONIN I 02/28 @ 1629 0.103 @ 1953 0.082 @ 2252 0.090 CARDIOLOGY CONSULT: INDETERMINATE TROPONIN LEVEL NEUROLOGY CONSULT: ACUTE LEFT PONTINE ISCHEMIC INFARCT SYNCOPAL EVENTS, LIKELY D/T HYPOTENSION PN 03/02: NSTEMI. ACUTE. CARDIOLOGY CONSULTED. PT ON ASPIRIN/ BB. SUGGESTED NIFEDIPINE. LIKELY FROM POORLY CONTROLLED HTN. RISKS: H&P: ESRD; HTN. TYPE 2 DM; PRIOR KNOWN HX OF CAD W/ HX OF DIASTOLIC HF. ABDOMINAL PAIN, NAUSEA, VOMITING PER HISTORY TREATMENT: ADMIT TELEMETRY CPOE: 03/01 ASPIRIN 81 MG PO DAILY CPOE: 03/01 COREG 12.5 MG PO BID Thank you, Audelia (This form is maintained as a part of the permanent medical record) 2014 [employer]. All Rights Reserved Audelia Fuchs RN, BSN [email or web address] Office: [phone] [facility]
--- NOTE | 2018-03-03 14:35 | PDOC.PN ---
- Subjective Encounter Start Date: 03/03/18 Encounter Start Time: 09:00 [place] is seen today, alert and oriented. His MRI did show evidence of Ischemic stroke to left [place]. Pt is having weakness generized. - Objective Resuscitation Status: Resuscitation Status FULL:Full Resuscitation MAR Reviewed: Yes Vital Signs & Weight: Vital Signs (12 hours) Temp Pulse Resp BP BP Pulse Ox 03/03/18 11:47 97.8 F 70 16 144/89 H 100 03/03/18 09:29 70 03/03/18 08:00 98 F 70 16 03/03/18 07:58 98 F 70 16 174/104 H 16 L 03/03/18 03:48 98.7 F 72 18 152/87 H 98 Weight Weight 2.91 oz I&O: 03/02/18 03/03/18 03/04/18 06:59 06:59 06:59 Intake Total 1200 1460 150 Output Total 1550 3550 300 Balance -350 -2090 -150 Result Diagrams: 03/02/18 08:02 03/02/18 08:02 Additional Labs: Accuchecks 03/03/18 03/03/18 03/02/18 11:08 05:37 21:50 POC Glucose 189 H 322 H 200 H 03/02/18 03/02/18 03/02/18 20:30 18:38 16:43 POC Glucose 301 H 432 H 327 H Radiology Reviewed by me: Yes Phys Exam - Physical Examination HEENT: PERRLA, moist MMs Neck: no nodes, no JVD Respiratory: no wheezing, no rales Cardiovascular: RRR, no significant murmur Gastrointestinal: soft, non-tender Musculoskeletal: no edema, pulses present Neurological: non-focal, normal sensation Psychiatric: normal affect, A&O x 3 Skin: no rash, normal turgor Dx/Plan (1) TIA (transient ischemic attack) Status: Acute Comment: CT neg, Persitant Drop attacks, Carotid US normalm, MRI did show subacute stroke in left [place], Pt cannot be given tpA as it is beyond the window and is started on Aspirin 325mg po daily will also start on Atorvastatin. (2) NSTEMI (non-ST elevated myocardial infarction) Code(s): I21.4 - NON-ST ELEVATION (NSTEMI) MYOCARDIAL INFARCTION Status: Acute Comment: Cardiology consulted. Pt on Aspirin/ BB. Suggested Nifedepine. Likely from poorly controlled HTN. (3) ESRD (end stage renal disease) on dialysis Code(s): N18.6 - END STAGE RENAL DISEASE; Z99.2 - DEPENDENCE ON RENAL DIALYSIS Status: Acute Comment: On HD per nephrology. (4) Malignant hypertension Code(s): I10 - ESSENTIAL (PRIMARY) HYPERTENSION Status: Acute (5) Cocaine abuse Code(s): F14.10 - COCAINE ABUSE, UNCOMPLICATED Status: Chronic (6) Coronary artery disease Code(s): I25.10 - ATHSCL HEART DISEASE OF [place] CORONARY ARTERY W/O ANG PCTRS Status: Chronic Qualifiers: Coronary Disease-Associated Artery/Lesion type: [place] artery [place] vs. transplanted heart: [place] heart Associated angina: without angina Qualified Code(s): I25.10 - Atherosclerotic heart disease of [place] coronary artery without angina pectoris Comment: Asprin, BB. (7) Diabetes mellitus type 2 in nonobese Code(s): E11.9 - TYPE 2 DIABETES MELLITUS WITHOUT COMPLICATIONS Status: Chronic Comment: uncontrolled (8) Acute CVA (cerebrovascular accident) Code(s): I63.9 - CEREBRAL INFARCTION, UNSPECIFIED Status: Acute Comment: Neurology following, Will do Aspirin 325mg po daily. Statin, keep LDL <70, Will evaalute for Rehab by PT/OT evalaution - Plan cont current plan of care, PT/OT, social service liaison, respiratory therapy, incentive spirometry, out of bed/ambulate, DVT proph w/SCDs * . - Discharge Day Encounter end time: 09:35 Review of Systems - Review of Systems Eyes: negative: Pain, Vision Change, Conjunctivae Inflammation, Eyelid Inflammation, Redness, Other ENT: negative: Ear Pain, Ear Discharge, Nose Pain, Nose Discharge, Nose Congestion, Mouth Pain, Mouth Swelling, Throat Pain, Throat Swelling, Other Respiratory: negative: Cough, Dry, Shortness of Breath, Hemoptysis, SOB with Excertion, Pleuritic Pain, Sputum, Wheezing Cardiovascular: negative: chest pain, palpitations, orthopnea, paroxysmal nocturnal dyspnea, edema, light headedness, other Musculoskeletal: negative: Neck Pain, Shoulder Pain, Arm Pain, Back Pain, Hand Pain, Leg Pain, Foot Pain, Other Skin: negative: Rash, Lesions, Kody, Bruising, Other - Medications/Allergies Allergies/Adverse Reactions: Allergies Allergy/AdvReac Type Severity Reaction Status Date / Time No Known Allergies Allergy Verified 02/18/15 19:53 Medications: Current Medications Al Hydroxide/Mg Hydroxide (Maalox) 30 ml PO Q6H PRN PRN Reason: Heartburn or Indigestion Last Admin: 03/02/18 06:56 Dose: 30 ml Aspirin (Ecotrin) 81 mg PO DAILY [facility] Last Admin: 03/03/18 09:29 Dose: 81 mg Atorvastatin Calcium (Lipitor) 40 mg PO [facility] Last Admin: 03/02/18 23:09 Dose: 40 mg Bisacodyl (Dulcolax) 10 mg PO DAILYPRN PRN PRN Reason: Constipation Calcium Carbonate (Tums) 1,000 mg PO Q4H PRN PRN Reason: Heartburn or Indigestion Carvedilol (Coreg) 12.5 mg PO BID-[facility] Last Admin: 03/03/18 09:29 Dose: 12.5 mg Dextrose/Water (Dextrose 50%) 25 gm IVP PRN PRN PRN Reason: HYPOGLYCEMIA PROTOCOL Docusate Sodium (Colace) 100 mg PO BID [facility] Last Admin: 03/03/18 09:29 Dose: 100 mg Glucagon (Glucagon) 1 mg IM PRN PRN PRN Reason: HYPOGLYCEMIA PROTOCOL Heparin Sodium (Porcine) (Heparin) 5,000 units SC TID [facility] Last Admin: 03/03/18 09:30 Dose: 5,000 units Hydralazine HCl (Apresoline) 10 mg SLOW IVP Q4H PRN PRN Reason: Hypertension Last Admin: 03/02/18 04:53 Dose: 10 mg Hydralazine HCl (Apresoline) 50 mg PO TID [facility] Last Admin: 03/03/18 09:29 Dose: 50 mg Dextrose/Water (D5w) 1,000 mls @ 0 mls/hr IV INF PRN; As Directed PRN Reason: HYPOGLYCEMIA PROTOCOL Insulin Human Isoph/Insulin Regular (Humulin 70/30) 15 units SC BID-[facility] Last Admin: 03/03/18 09:28 Dose: 15 unit Insulin Human Lispro (Humalog) 0 units SC .MODERATE SLIDING SC PRN; Protocol PRN Reason: MODERATE SLIDING SCALE Last Admin: 03/03/18 05:44 Dose: 8 unit Insulin Human Lispro (Humalog) 0 units SC .BEDTIME SLIDING SC PRN; Protocol PRN Reason: BEDTIME SLIDING SCALE Magnesium Hydroxide (Milk Of Magnesium) 30 ml PO DAILYPRN PRN PRN Reason: Constipation Last Admin: 03/01/18 00:40 Dose: 30 ml Pantoprazole Sodium (Protonix) 40 mg IVP Q12HR [facility] Last Admin: 03/03/18 09:29 Dose: 40 mg Sodium Chloride (Flush - Normal Saline) 10 ml IV Q12HR [facility] Last Admin: 03/03/18 09:30 Dose: 10 ml
[2018-03-03] MEDS: Atorvastatin Calcium 40 MG TAB PO SCH (20:54)
[2018-03-04 07:00] LABS: Cardiac Risk 3.9 (Less than 4.5)
[2018-03-04] MEDS: Insulin NPH/Reg Insulin Hm 300 UNITS/3 ML VIAL SC SCH ×2 (13:41→17:42)
[2018-03-04] MEDS: Heparin 5,000 UNITS/ML VIAL SC SCH ×3 (13:42→21:03)
[2018-03-04] MEDS: hydrALAZINE 25 MG TAB PO SCH ×3 (13:42→21:03)
[2018-03-04] MEDS: Docusate 100 MG CAP PO SCH ×2 (13:42→21:03)
[2018-03-04] MEDS: Carvedilol 25 MG TAB PO SCH ×2 (14:43→17:42)
[2018-03-04] MEDS: Aspirin 81 mg Enteric Coated Tablet PO SCH (15:15)
[2018-03-04] MEDS: HumaLOG 300 UNITS/3 ML VIAL SC PRN ×2 (15:15→17:42)
--- NOTE | 2018-03-04 16:12 | PDOC.PN ---
- Subjective Encounter Start Date: 03/04/18 Encounter Start Time: 11:00 Patient is seen today, alert and oriented. Has LEft [place] ischemic Stroke, had EEG today pending. - Objective Resuscitation Status: Resuscitation Status FULL:Full Resuscitation MAR Reviewed: Yes Vital Signs & Weight: Vital Signs (12 hours) Temp Pulse Resp BP BP Pulse Ox 03/04/18 15:54 98.2 F 82 16 131/80 98 03/04/18 15:44 97.5 F L 74 18 98 03/04/18 15:14 74 03/04/18 13:42 74 03/04/18 13:15 144/78 H 03/04/18 08:00 97.5 F L 74 18 186/111 H 98 Weight Weight 188 lb 7.924 oz I&O: 03/03/18 03/04/18 03/05/18 06:59 06:59 06:59 Intake Total 1460 725 Output Total 3550 1870 625 Balance -2090 -1145 -625 Result Diagrams: 03/02/18 08:02 03/02/18 08:02 Additional Labs: Accuchecks 03/04/18 03/04/18 03/03/18 14:13 06:05 20:39 POC Glucose 242 H 153 H 191 H 03/03/18 17:06 POC Glucose 130 H Radiology Reviewed by me: Yes Phys Exam - Physical Examination HEENT: PERRLA, moist MMs Neck: no nodes, no JVD Respiratory: no wheezing, no rales Cardiovascular: no significant murmur Gastrointestinal: soft, non-tender Musculoskeletal: no edema, pulses present Neurological: non-focal, normal sensation Lymphatic: no nodes Psychiatric: normal affect, A&O x 3 Dx/Plan (1) TIA (transient ischemic attack) Status: Acute Comment: CT neg, Persitant Drop attacks, Carotid US normalm, MRI did show subacute stroke in left [place], Pt cannot be given tpA as it is beyond the window and is started on Aspirin 325mg po daily will also start on Atorvastatin.will need PT/OT for Rehab. (2) NSTEMI (non-ST elevated myocardial infarction) Code(s): I21.4 - NON-ST ELEVATION (NSTEMI) MYOCARDIAL INFARCTION Status: Acute Comment: Cardiology consulted. Pt on Aspirin/ BB. Suggested Nifedepine. Likely from poorly controlled HTN. (3) ESRD (end stage renal disease) on dialysis Code(s): N18.6 - END STAGE RENAL DISEASE; Z99.2 - DEPENDENCE ON RENAL DIALYSIS Status: Acute Comment: On HD per nephrology. (4) Malignant hypertension Code(s): I10 - ESSENTIAL (PRIMARY) HYPERTENSION Status: Acute (5) Cocaine abuse Code(s): F14.10 - COCAINE ABUSE, UNCOMPLICATED Status: Chronic (6) Coronary artery disease Code(s): I25.10 - ATHSCL HEART DISEASE OF [place] CORONARY ARTERY W/O ANG PCTRS Status: Chronic Qualifiers: Coronary Disease-Associated Artery/Lesion type: [place] artery [place] vs. transplanted heart: [place] heart Associated angina: without angina Qualified Code(s): I25.10 - Atherosclerotic heart disease of [place] coronary artery without angina pectoris Comment: Aspsenthil, BB. (7) Diabetes mellitus type 2 in nonobese Code(s): E11.9 - TYPE 2 DIABETES MELLITUS WITHOUT COMPLICATIONS Status: Chronic Comment: uncontrolled (8) Acute CVA (cerebrovascular accident) Code(s): I63.9 - CEREBRAL INFARCTION, UNSPECIFIED Status: Acute Comment: Neurology following, Will do Aspirin 325mg po daily. Statin, keep LDL <70, Will evaalute for Rehab by PT/OT evalaution. Pt had EEG pending results. - Plan cont current plan of care, PT/OT, social work faculty member, respiratory therapy, incentive spirometry, DVT proph w/lovenox * .
[2018-03-04] MEDS: Atorvastatin Calcium 40 MG TAB PO SCH (21:09)
--- NOTE | 2018-03-04 21:32 | PRG ---
DATE OF SERVICE: 03/04/2018 SUBJECTIVE: The patient was seen and examined during dialysis, seems to be doing very well. He used to be doing okay. Noted with the following vital signs. OBJECTIVE: VITAL SIGNS: Afebrile with temperature 98.2, pulse 82, respiratory rate of 16, O2 sat of 98% with bl ood pressure of 131/80. HEENT: Unremarkable with moist oral mucosa. No conjunctival injection or icterus. NECK: Supple. CARDIOVASCULAR: First and second sounds were heard. RESPIRATORY: Clear to auscultation. DIGESTIVE: Revealed a benign abdomen with positive bowel sounds. EXTREMITIES: No peripheral edema. SKIN: No new gross rash. LYMPHATICS: No peripheral lymphadenopathy. IMPRESSION: 1. End-stage renal disease on hemodialysis. 2. Syncope, possibly in the context of cerebrovascular accident. 3. History of cerebrovascular accident. PLAN: 1. The patient to continue with hemodialysis per his normal schedule of Wednesday, Wednesday and Wednesday with ultrafiltration as tolerated by hemodynamics. 2. Further management to be dependent on the clinical course.
[2018-03-05] MEDS: HumaLOG 300 UNITS/3 ML VIAL SC PRN ×3 (06:23→21:17)
[2018-03-05] MEDS: Carvedilol 25 MG TAB PO SCH ×2 (10:05→17:48)
[2018-03-05] MEDS: Docusate 100 MG CAP PO SCH ×2 (10:05→20:52)
[2018-03-05] MEDS: Aspirin 81 mg Enteric Coated Tablet PO SCH (10:05)
[2018-03-05] MEDS: hydrALAZINE 25 MG TAB PO SCH ×3 (10:05→22:36)
[2018-03-05] MEDS: Heparin 5,000 UNITS/ML VIAL SC SCH ×3 (10:06→20:52)
[2018-03-05] MEDS: Insulin NPH/Reg Insulin Hm 300 UNITS/3 ML VIAL SC SCH ×2 (10:06→17:35)
[2018-03-05] MEDS: Milk Of Magnesia 30 ML UDCUP PO PRN (17:35)
--- NOTE | 2018-03-05 18:28 | EKG ---
Test Reason : AMS Blood Pressure : / mmHG Vent. Rate : 089 BPM Atrial Rate : 089 BPM P-R Int : 156 ms QRS Dur : 100 ms QT Int : 430 ms P-R-T Axes : 061 047 236 degrees QTc Int : 523 ms Poor data quality, interpretation may be adversely affected Normal sinus rhythm Possible Left atrial enlargement Left ventricular hypertrophy with repolarization abnormality Prolonged QT Abnormal ECG Confirmed by DENISHA PAULA D.O. ([id number]), proposal editor KATHIA GUTIERREZ ([id number]) on 03/05/2018 6:27:32 PM Referred By: Confirmed By:DENISHA PAULA D.O.
[2018-03-05] MEDS: Atorvastatin Calcium 40 MG TAB PO SCH (20:52)
[2018-03-06] MEDS: HumaLOG 300 UNITS/3 ML VIAL SC PRN ×3 (06:09→17:24)
[2018-03-06] MEDS: Carvedilol 25 MG TAB PO SCH ×2 (08:58→17:21)
[2018-03-06] MEDS: Docusate 100 MG CAP PO SCH ×2 (08:58→21:52)
[2018-03-06] MEDS: hydrALAZINE 25 MG TAB PO SCH ×3 (08:58→21:51)
[2018-03-06] MEDS: Heparin 5,000 UNITS/ML VIAL SC SCH ×3 (09:00→21:52)
[2018-03-06] MEDS: Aspirin 81 mg Enteric Coated Tablet PO SCH (09:00)
[2018-03-06] MEDS: Insulin NPH/Reg Insulin Hm 300 UNITS/3 ML VIAL SC SCH ×2 (09:00→17:20)
--- NOTE | 2018-03-06 10:39 | PDOC.PN ---
- Subjective Encounter Start Date: 03/05/18 Encounter Start Time: 10:00 Patient is seen today,. On phone, Alert and oriented. Waiting on inpatient rehab placement. - Objective Resuscitation Status: Resuscitation Status FULL:Full Resuscitation MAR Reviewed: Yes Vital Signs & Weight: Vital Signs (12 hours) Temp Pulse Resp BP BP BP Pulse Ox 03/06/18 08:58 69 144/86 H 03/06/18 08:56 98.0 F 69 15 97 03/06/18 07:30 98.0 F 69 15 144/86 H 97 03/06/18 04:00 98.0 F 70 18 164/91 H 99 03/06/18 00:00 98.3 F 69 20 138/80 98 Weight Weight 187 lb 2.759 oz I&O: 03/05/18 03/06/18 03/07/18 06:59 06:59 06:59 Intake Total 1360 500 Output Total 625 1540 275 Balance -625 -180 225 Result Diagrams: 03/02/18 08:02 03/02/18 08:02 Additional Labs: Accuchecks 03/06/18 03/05/18 03/05/18 05:12 20:55 15:53 POC Glucose 186 H 292 H 126 H 03/05/18 11:48 POC Glucose 271 H Radiology Reviewed by me: Yes Phys Exam - Physical Examination HEENT: PERRLA, moist MMs Neck: no nodes, no JVD Respiratory: no wheezing, no rales Cardiovascular: RRR, no significant murmur Gastrointestinal: soft, non-tender Musculoskeletal: no edema, pulses present Psychiatric: normal affect, A&O x 3 Skin: no rash, normal turgor Dx/Plan (1) TIA (transient ischemic attack) Status: Acute Comment: CT neg, Persitant Drop attacks, Carotid US normalm, MRI did show subacute stroke in left Mau, Pt cannot be given tpA as it is beyond the window and is started on Aspirin 325mg po daily will also start on Atorvastatin.will need PT/OT for Rehab. (2) NSTEMI (non-ST elevated myocardial infarction) Code(s): I21.4 - NON-ST ELEVATION (NSTEMI) MYOCARDIAL INFARCTION Status: Acute Comment: Cardiology consulted. Pt on Aspirin/ BB. Suggested Nifedepine. Likely from poorly controlled HTN. (3) ESRD (end stage renal disease) on dialysis Code(s): N18.6 - END STAGE RENAL DISEASE; Z99.2 - DEPENDENCE ON RENAL DIALYSIS Status: Acute Comment: On HD per nephrology. (4) Malignant hypertension Code(s): I10 - ESSENTIAL (PRIMARY) HYPERTENSION Status: Acute (5) Cocaine abuse Code(s): F14.10 - COCAINE ABUSE, UNCOMPLICATED Status: Chronic (6) Coronary artery disease Code(s): I25.10 - ATHSCL HEART DISEASE OF [place] CORONARY ARTERY W/O ANG PCTRS Status: Chronic Qualifiers: Coronary Disease-Associated Artery/Lesion type: [place] artery [place] vs. transplanted heart: [place] heart Associated angina: without angina Qualified Code(s): I25.10 - Atherosclerotic heart disease of [place] coronary artery without angina pectoris Comment: ERIK Moya. (7) Diabetes mellitus type 2 in nonobese Code(s): E11.9 - TYPE 2 DIABETES MELLITUS WITHOUT COMPLICATIONS Status: Chronic Comment: uncontrolled (8) Acute CVA (cerebrovascular accident) Code(s): I63.9 - CEREBRAL INFARCTION, UNSPECIFIED Status: Acute Comment: Neurology following, Will do Aspirin 325mg po daily. Statin, keep LDL <70, Will evaalute for Rehab by PT/OT evalaution. Pt had EEG pending results. - Plan cont current plan of care, PT/OT, social work coordinator, respiratory therapy, incentive spirometry, DVT proph w/lovenox * . Review of Systems - Review of Systems Eyes: negative: Pain, Vision Change, Conjunctivae Inflammation, Eyelid Inflammation, Redness, Other ENT: negative: Ear Pain, Ear Discharge, Nose Pain, Nose Discharge, Nose Congestion, Mouth Pain, Mouth Swelling, Throat Pain, Throat Swelling, Other Respiratory: negative: Cough, Dry, Shortness of Breath, Hemoptysis, SOB with Excertion, Pleuritic Pain, Sputum, Wheezing Cardiovascular: negative: chest pain, palpitations, orthopnea, paroxysmal nocturnal dyspnea, edema, light headedness, other Gastrointestinal: negative: Nausea, Vomiting, Abdominal Pain, Diarrhea, Constipation, Melena, Hematochezia, Other Musculoskeletal: negative: Neck Pain, Shoulder Pain, Arm Pain, Back Pain, Hand Pain, Leg Pain, Foot Pain, Other Skin: negative: Rash, Lesions, Kody, Bruising, Other Neurological: negative: Weakness, Numbness, Incoordination, Change in Speech, Confusion, Seizures, Other - Medications/Allergies Allergies/Adverse Reactions: Allergies Allergy/AdvReac Type Severity Reaction Status Date / Time No Known Allergies Allergy Verified 02/18/15 19:53 Medications: Current Medications Al Hydroxide/Mg Hydroxide (Maalox) 30 ml PO Q6H PRN PRN Reason: Heartburn or Indigestion Last Admin: 03/02/18 06:56 Dose: 30 ml Aspirin (Ecotrin) 81 mg PO DAILY [facility] Last Admin: 03/06/18 09:00 Dose: 81 mg Atorvastatin Calcium (Lipitor) 40 mg PO HS [facility] Last Admin: 03/05/18 20:52 Dose: 40 mg Bisacodyl (Dulcolax) 10 mg PO DAILYPRN PRN PRN Reason: Constipation Last Admin: 03/05/18 10:04 Dose: 10 mg Calcium Carbonate (Tums) 1,000 mg PO Q4H PRN PRN Reason: Heartburn or Indigestion Carvedilol (Coreg) 12.5 mg PO BID-[facility] Last Admin: 03/06/18 08:58 Dose: 12.5 mg Dextrose/Water (Dextrose 50%) 25 gm IVP PRN PRN PRN Reason: HYPOGLYCEMIA PROTOCOL Docusate Sodium (Colace) 100 mg PO BID [facility] Last Admin: 03/06/18 08:58 Dose: 100 mg Glucagon (Glucagon) 1 mg IM PRN PRN PRN Reason: HYPOGLYCEMIA PROTOCOL Heparin Sodium (Porcine) (Heparin) 5,000 units SC TID [facility] Last Admin: 03/06/18 09:00 Dose: 5,000 units Hydralazine HCl (Apresoline) 10 mg SLOW IVP Q4H PRN PRN Reason: Hypertension Last Admin: 03/02/18 04:53 Dose: 10 mg Hydralazine HCl (Apresoline) 50 mg PO TID [facility] Last Admin: 03/06/18 08:58 Dose: 50 mg Dextrose/Water (D5w) 1,000 mls @ 0 mls/hr IV INF PRN; As Directed PRN Reason: HYPOGLYCEMIA PROTOCOL Insulin Human Isoph/Insulin Regular (Humulin 70/30) 15 units SC BID-[facility] Last Admin: 03/06/18 09:00 Dose: 15 unit Insulin Human Lispro (Humalog) 0 units SC .MODERATE SLIDING SC PRN; Protocol PRN Reason: MODERATE SLIDING SCALE Last Admin: 03/06/18 06:09 Dose: 2 unit Insulin Human Lispro (Humalog) 0 units SC .BEDTIME SLIDING SC PRN; Protocol PRN Reason: BEDTIME SLIDING SCALE Last Admin: 03/05/18 21:17 Dose: 3 units Magnesium Hydroxide (Milk Of Magnesium) 30 ml PO DAILYPRN PRN PRN Reason: Constipation Last Admin: 03/05/18 17:35 Dose: 30 ml Pantoprazole Sodium (Protonix) 40 mg PO Q12HR [facility] Last Admin: 03/06/18 08:59 Dose: 40 mg Sodium Chloride (Flush - Normal Saline) 10 ml IV Q12HR LM Last Admin: 03/06/18 10:17 Dose: 10 ml
--- NOTE | 2018-03-06 21:09 | PRG ---
DATE OF SERVICE: 03/06/2018 SUBJECTIVE: The patient seen and examined, seems to be doing much better. PHYSICAL EXAMINATION: VITAL SIGNS: Afebrile with temperature 97.4, pulse 76, respiratory rate of 20, blood pressure 129/75 , and O2 saturation 98%. HEENT: Unremarkable with moist oral mucosa. NECK: Supple, no conjunctival injection or icterus. CARDIOVASCULAR: First and second heart sounds were heard. RESPIRATORY: Clear to auscultation. DIGESTIVE: Revealed a benign abdomen with positive bowel sounds. EXTREMITIES: No peripheral edema. SKIN: No new gross rash. LYMPHATICS: No peripheral lymphadenopathy. IMPRESSION: 1. End-stage renal disease, hemodialysis dependent. 2. Cerebrovascular accident. 3. Diabetes mellitus. PLAN: 1. The patient to continue with hemodialysis as per his normal schedule. 2. Further management to be dependent on the clinical course including the disposition planning.
[2018-03-06] MEDS: Atorvastatin Calcium 40 MG TAB PO SCH (21:51)
[2018-03-07] MEDS: HumaLOG 300 UNITS/3 ML VIAL SC PRN ×4 (06:22→20:29)
[2018-03-07] MEDS: Carvedilol 25 MG TAB PO SCH ×2 (08:57→18:10)
[2018-03-07] MEDS: Heparin 5,000 UNITS/ML VIAL SC SCH ×3 (08:58→20:22)
[2018-03-07] MEDS: Insulin NPH/Reg Insulin Hm 300 UNITS/3 ML VIAL SC SCH ×2 (08:58→18:10)
[2018-03-07] MEDS: hydrALAZINE 25 MG TAB PO SCH ×3 (08:58→20:21)
--- NOTE | 2018-03-07 09:19 | PDOC.PN ---
- Subjective Encounter Start Date: 03/06/18 Encounter Start Time: 09:00 Jocelyn is seen today, alert and oriented. waiting on Inpatient Rehab. - Objective Resuscitation Status: Resuscitation Status FULL:Full Resuscitation MAR Reviewed: Yes Vital Signs & Weight: Vital Signs (12 hours) Temp Pulse Resp BP BP BP Pulse Ox 03/07/18 08:58 67 03/07/18 08:00 98.1 F 67 16 97 03/07/18 07:49 98.1 F 67 16 183/104 H 97 03/07/18 03:45 98.7 F 72 16 155/88 H 98 03/06/18 23:40 98.9 F 73 16 171/86 H 98 03/06/18 21:51 72 147/82 H Weight Weight 186 lb 11.704 oz I&O: 03/06/18 03/07/18 03/08/18 06:59 06:59 06:59 Intake Total 1360 1740 Output Total 1540 2180 Balance -180 -440 Result Diagrams: 03/02/18 08:02 03/02/18 08:02 Additional Labs: Accuchecks 03/07/18 03/06/18 03/06/18 06:00 21:14 16:37 POC Glucose 327 H 162 H 295 H 03/06/18 11:26 POC Glucose 319 H Radiology Reviewed by me: Yes Phys Exam - Physical Examination HEENT: PERRLA, moist MMs Neck: no nodes, no JVD Respiratory: no wheezing, no rales Cardiovascular: RRR, no significant murmur Gastrointestinal: soft, non-tender Musculoskeletal: pulses present Neurological: non-focal, normal sensation Dx/Plan (1) TIA (transient ischemic attack) Status: Acute Comment: CT neg, Persitant Drop attacks, Carotid US normalm, MRI did show subacute stroke in left Mau, Pt cannot be given tpA as it is beyond the window and is started on Aspirin 325mg po daily will also start on Atorvastatin.will need PT/OT for Rehab. (2) NSTEMI (non-ST elevated myocardial infarction) Code(s): I21.4 - NON-ST ELEVATION (NSTEMI) MYOCARDIAL INFARCTION Status: Acute Comment: Cardiology consulted. Pt on Aspirin/ BB. Suggested Nifedepine. Likely from poorly controlled HTN. (3) ESRD (end stage renal disease) on dialysis Code(s): N18.6 - END STAGE RENAL DISEASE; Z99.2 - DEPENDENCE ON RENAL DIALYSIS Status: Acute Comment: On HD per nephrology. (4) Malignant hypertension Code(s): I10 - ESSENTIAL (PRIMARY) HYPERTENSION Status: Acute (5) Cocaine abuse Code(s): F14.10 - COCAINE ABUSE, UNCOMPLICATED Status: Chronic (6) Coronary artery disease Code(s): I25.10 - ATHSCL HEART DISEASE OF [place] CORONARY ARTERY W/O ANG PCTRS Status: Chronic Qualifiers: Coronary Disease-Associated Artery/Lesion type: [place] artery [place] vs. transplanted heart: [place] heart Associated angina: without angina Qualified Code(s): I25.10 - Atherosclerotic heart disease of [place] coronary artery without angina pectoris Comment: ERIK Moya. (7) Diabetes mellitus type 2 in nonobese Code(s): E11.9 - TYPE 2 DIABETES MELLITUS WITHOUT COMPLICATIONS Status: Chronic Comment: uncontrolled (8) Acute CVA (cerebrovascular accident) Code(s): I63.9 - CEREBRAL INFARCTION, UNSPECIFIED Status: Acute Comment: Neurology following, Will do Aspirin 325mg po daily. Statin, keep LDL <70, Will evaalute for Rehab by PT/OT evalaution. Pt had EEG pending results. - Plan cont current plan of care, PT/OT, social work case manager, incentive spirometry, out of bed/ambulate, DVT proph w/SCDs * . Review of Systems - Review of Systems Constitutional: negative: fever, chills, sweats, weakness, malaise, other Eyes: negative: Pain, Vision Change, Conjunctivae Inflammation, Eyelid Inflammation, Redness, Other ENT: negative: Ear Pain, Ear Discharge, Nose Pain, Nose Discharge, Nose Congestion, Mouth Pain, Mouth Swelling, Throat Pain, Throat Swelling, Other Respiratory: negative: Cough, Dry, Shortness of Breath, Hemoptysis, SOB with Excertion, Pleuritic Pain, Sputum, Wheezing Cardiovascular: negative: chest pain, palpitations, orthopnea, paroxysmal nocturnal dyspnea, edema, light headedness, other Gastrointestinal: negative: Nausea, Vomiting, Abdominal Pain, Diarrhea, Constipation, Melena, Hematochezia, Other Musculoskeletal: negative: Neck Pain, Shoulder Pain, Arm Pain, Back Pain, Hand Pain, Leg Pain, Foot Pain, Other Skin: Rash, Lesions, Kody, Bruising, Other - Medications/Allergies Allergies/Adverse Reactions: Allergies Allergy/AdvReac Type Severity Reaction Status Date / Time No Known Allergies Allergy Verified 02/18/15 19:53 Medications: Current Medications Al Hydroxide/Mg Hydroxide (Maalox) 30 ml PO Q6H PRN PRN Reason: Heartburn or Indigestion Last Admin: 03/02/18 06:56 Dose: 30 ml Aspirin (Ecotrin) 81 mg PO DAILY [facility] Last Admin: 03/06/18 09:00 Dose: 81 mg Atorvastatin Calcium (Lipitor) 40 mg PO HS [facility] Last Admin: 03/06/18 21:51 Dose: 40 mg Bisacodyl (Dulcolax) 10 mg PO DAILYPRN PRN PRN Reason: Constipation Last Admin: 03/05/18 10:04 Dose: 10 mg Calcium Carbonate (Tums) 1,000 mg PO Q4H PRN PRN Reason: Heartburn or Indigestion Carvedilol (Coreg) 12.5 mg PO BID-[facility] Last Admin: 03/07/18 08:57 Dose: Not Given Dextrose/Water (Dextrose 50%) 25 gm IVP PRN PRN PRN Reason: HYPOGLYCEMIA PROTOCOL Docusate Sodium (Colace) 100 mg PO BID [facility] Last Admin: 03/06/18 21:52 Dose: 100 mg Glucagon (Glucagon) 1 mg IM PRN PRN PRN Reason: HYPOGLYCEMIA PROTOCOL Heparin Sodium (Porcine) (Heparin) 5,000 units SC TID [facility] Last Admin: 03/07/18 08:58 Dose: Not Given Hydralazine HCl (Apresoline) 10 mg SLOW IVP Q4H PRN PRN Reason: Hypertension Last Admin: 03/02/18 04:53 Dose: 10 mg Hydralazine HCl (Apresoline) 50 mg PO TID [facility] Last Admin: 03/07/18 08:58 Dose: Not Given Dextrose/Water (D5w) 1,000 mls @ 0 mls/hr IV INF PRN; As Directed PRN Reason: HYPOGLYCEMIA PROTOCOL Insulin Human Isoph/Insulin Regular (Humulin 70/30) 15 units SC BID-[facility] Last Admin: 03/07/18 08:58 Dose: Not Given Insulin Human Lispro (Humalog) 0 units SC .MODERATE SLIDING SC PRN; Protocol PRN Reason: MODERATE SLIDING SCALE Last Admin: 03/07/18 06:22 Dose: 8 unit Insulin Human Lispro (Humalog) 0 units SC .BEDTIME SLIDING SC PRN; Protocol PRN Reason: BEDTIME SLIDING SCALE Last Admin: 03/05/18 21:17 Dose: 3 units Magnesium Hydroxide (Milk Of Magnesium) 30 ml PO DAILYPRN PRN PRN Reason: Constipation Last Admin: 03/05/18 17:35 Dose: 30 ml Pantoprazole Sodium (Protonix) 40 mg PO Q12HR LM Last Admin: 03/07/18 08:58 Dose: Not Given Sodium Chloride (Flush - Normal Saline) 10 ml IV Q12HR [facility] Last Admin: 03/06/18 21:53 Dose: 10 ml
[2018-03-07 09:41] LABS: #Eosinphils 0.2 thou/uL (0.0-0.7); #Lymphocytes 1.1 thou/uL (1.20-3.40); #Monocytes 0.3 thou/uL (0.11-0.59); #Neutrophils 2.2 thou/uL (1.40-6.50); %Basophils 0.7 % (0.0-1.0); %Eosinophils 5.7 % (0.0-10.0); %Lymphocytes 28.4 % (21.0-51.0); %Monocytes 7.3 % (0.0-10.0); %Neutrophils 57.9 % (42.0-75.0); Hemoglobin 11.6 g/dL (14.0-18.0); Mean Corpuscular HGB CONC 32.4 g/dL (32.0-36.0); Mean Corpuscular Hemoglobin 25.8 pg (27.0-31.0); Mean Corpuscular Volume 79.7 fl (80.0-94.0); Mean Platelet Volume 9.7 fL (7.4-10.4); Platelet Count 147 thou/uL (130-400); RBC Distribution Width 15.4 % (11.5-14.5); Red Blood Cell (RBC) Count 4.51 mill/uL (4.70-6.10); White Blood Cell (WBC) Count 3.8 thou/uL (4.8-10.8)
[2018-03-07 09:59] LABS: Anion Gap 7 mmol/L (10-20); BUN (Urea Nitrogen) 30 mg/dL (8.4-25.7); Calc. Creatinine Clearance 40 mL/min (70-130); Calcium 8.1 mg/dL (7.8-10.44); Carbon Dioxide 26 mmol/L (22-29); Chloride 102 mmol/L (98-107); Estimated GFR-MDRD 33; Glucose 259 mg/dL (70-105); Potassium 3.9 mmol/L (3.5-5.1); Sodium 131 mmol/L (136-145)
--- NOTE | 2018-03-07 14:17 | PDOC.PN ---
- Subjective Encounter Start Date: 03/07/18 Encounter Start Time: 10:00 Paitent seen at HD, waiting on Inpatient rehab placement, - Objective Resuscitation Status: Resuscitation Status FULL:Full Resuscitation MAR Reviewed: Yes Vital Signs & Weight: Vital Signs (12 hours) Temp Pulse Resp BP BP Pulse Ox 03/07/18 08:58 67 03/07/18 08:00 98.1 F 67 16 97 03/07/18 07:49 98.1 F 67 16 183/104 H 97 03/07/18 03:45 98.7 F 72 16 155/88 H 98 Weight Weight 186 lb 11.704 oz I&O: 03/06/18 03/07/18 03/08/18 06:59 06:59 06:59 Intake Total 1360 1740 Output Total 1540 2180 Balance -180 -440 Result Diagrams: 03/07/18 09:32 03/07/18 09:32 Additional Labs: Accuchecks 03/07/18 03/07/18 03/06/18 13:43 06:00 21:14 POC Glucose 180 H 327 H 162 H 03/06/18 16:37 POC Glucose 295 H Radiology Reviewed by me: Yes Phys Exam - Physical Examination HEENT: PERRLA, moist MMs Neck: no nodes Respiratory: no wheezing, no rales Cardiovascular: RRR, no significant murmur Gastrointestinal: soft, non-tender Musculoskeletal: no edema, pulses present Neurological: non-focal, normal sensation Psychiatric: normal affect Dx/Plan (1) TIA (transient ischemic attack) Status: Acute Comment: CT neg, Persitant Drop attacks, Carotid US normalm, MRI did show subacute stroke in left Mau, Pt cannot be given tpA as it is beyond the window and is started on Aspirin 325mg po daily will also start on Atorvastatin.will need PT/OT for Rehab. (2) NSTEMI (non-ST elevated myocardial infarction) Code(s): I21.4 - NON-ST ELEVATION (NSTEMI) MYOCARDIAL INFARCTION Status: Acute Comment: Cardiology consulted. Pt on Aspirin/ BB. Suggested Nifedepine. Likely from poorly controlled HTN. (3) ESRD (end stage renal disease) on dialysis Code(s): N18.6 - END STAGE RENAL DISEASE; Z99.2 - DEPENDENCE ON RENAL DIALYSIS Status: Acute Comment: On HD per nephrology. (4) Malignant hypertension Code(s): I10 - ESSENTIAL (PRIMARY) HYPERTENSION Status: Acute (5) Cocaine abuse Code(s): F14.10 - COCAINE ABUSE, UNCOMPLICATED Status: Chronic (6) Coronary artery disease Code(s): I25.10 - ATHSCL HEART DISEASE OF [place] CORONARY ARTERY W/O ANG PCTRS Status: Chronic Qualifiers: Coronary Disease-Associated Artery/Lesion type: [place] artery [place] vs. transplanted heart: [place] heart Associated angina: without angina Qualified Code(s): I25.10 - Atherosclerotic heart disease of [place] coronary artery without angina pectoris Comment: ERIK Moya. (7) Diabetes mellitus type 2 in nonobese Code(s): E11.9 - TYPE 2 DIABETES MELLITUS WITHOUT COMPLICATIONS Status: Chronic Comment: uncontrolled (8) Acute CVA (cerebrovascular accident) Code(s): I63.9 - CEREBRAL INFARCTION, UNSPECIFIED Status: Acute Comment: Neurology following, Will do Aspirin 325mg po daily. Statin, keep LDL <70, Will evaalute for Rehab by PT/OT evalaution. Pt had EEG pending results. - Plan cont current plan of care, plan discussed w/ family, PT/OT, incentive spirometry , out of bed/ambulate, DVT proph w/lovenox * . Review of Systems - Review of Systems Eyes: negative: Pain, Vision Change, Conjunctivae Inflammation, Eyelid Inflammation, Redness, Other ENT: negative: Ear Pain, Ear Discharge, Nose Pain, Nose Discharge, Nose Congestion, Mouth Pain, Mouth Swelling, Throat Pain, Throat Swelling, Other Respiratory: negative: Cough, Dry, Shortness of Breath, Hemoptysis, SOB with Excertion, Pleuritic Pain, Sputum, Wheezing Cardiovascular: negative: chest pain, palpitations, orthopnea, paroxysmal nocturnal dyspnea, edema, light headedness, other Gastrointestinal: negative: Nausea, Vomiting, Abdominal Pain, Diarrhea, Constipation, Melena, Hematochezia, Other Musculoskeletal: negative: Neck Pain, Shoulder Pain, Arm Pain, Back Pain, Hand Pain, Leg Pain, Foot Pain, Other Neurological: negative: Weakness, Numbness, Incoordination, Change in Speech, Confusion, Seizures, Other - Medications/Allergies Allergies/Adverse Reactions: Allergies Allergy/AdvReac Type Severity Reaction Status Date / Time No Known Allergies Allergy Verified 02/18/15 19:53 Medications: Current Medications Al Hydroxide/Mg Hydroxide (Maalox) 30 ml PO Q6H PRN PRN Reason: Heartburn or Indigestion Last Admin: 03/02/18 06:56 Dose: 30 ml Aspirin (Ecotrin) 81 mg PO DAILY [facility] Last Admin: 03/06/18 09:00 Dose: 81 mg Atorvastatin Calcium (Lipitor) 40 mg PO HS [facility] Last Admin: 03/06/18 21:51 Dose: 40 mg Bisacodyl (Dulcolax) 10 mg PO DAILYPRN PRN PRN Reason: Constipation Last Admin: 03/05/18 10:04 Dose: 10 mg Calcium Carbonate (Tums) 1,000 mg PO Q4H PRN PRN Reason: Heartburn or Indigestion Carvedilol (Coreg) 12.5 mg PO BID-[facility] Last Admin: 03/07/18 08:57 Dose: Not Given Dextrose/Water (Dextrose 50%) 25 gm IVP PRN PRN PRN Reason: HYPOGLYCEMIA PROTOCOL Docusate Sodium (Colace) 100 mg PO BID [facility] Last Admin: 03/06/18 21:52 Dose: 100 mg Glucagon (Glucagon) 1 mg IM PRN PRN PRN Reason: HYPOGLYCEMIA PROTOCOL Heparin Sodium (Porcine) (Heparin) 5,000 units SC TID [facility] Last Admin: 03/07/18 08:58 Dose: Not Given Hydralazine HCl (Apresoline) 10 mg SLOW IVP Q4H PRN PRN Reason: Hypertension Last Admin: 03/02/18 04:53 Dose: 10 mg Hydralazine HCl (Apresoline) 50 mg PO TID [facility] Last Admin: 03/07/18 08:58 Dose: Not Given Dextrose/Water (D5w) 1,000 mls @ 0 mls/hr IV INF PRN; As Directed PRN Reason: HYPOGLYCEMIA PROTOCOL Insulin Human Isoph/Insulin Regular (Humulin 70/30) 15 units SC BID-[facility] Last Admin: 03/07/18 08:58 Dose: Not Given Insulin Human Lispro (Humalog) 0 units SC .MODERATE SLIDING SC PRN; Protocol PRN Reason: MODERATE SLIDING SCALE Last Admin: 03/07/18 06:22 Dose: 8 unit Insulin Human Lispro (Humalog) 0 units SC .BEDTIME SLIDING SC PRN; Protocol PRN Reason: BEDTIME SLIDING SCALE Last Admin: 03/05/18 21:17 Dose: 3 units Magnesium Hydroxide (Milk Of Magnesium) 30 ml PO DAILYPRN PRN PRN Reason: Constipation Last Admin: 03/05/18 17:35 Dose: 30 ml Pantoprazole Sodium (Protonix) 40 mg PO Q12HR [facility] Last Admin: 03/07/18 08:58 Dose: Not Given Sodium Chloride (Flush - Normal Saline) 10 ml IV Q12HR [facility] Last Admin: 03/06/18 21:53 Dose: 10 ml
[2018-03-07] MEDS: Docusate 100 MG CAP PO SCH ×2 (14:37→20:22)
[2018-03-07] MEDS: Aspirin 81 mg Enteric Coated Tablet PO SCH (14:37)
[2018-03-07] MEDS: Atorvastatin Calcium 40 MG TAB PO SCH (20:21)
--- NOTE | 2018-03-08 01:02 | PRG ---
DATE OF SERVICE: 03/07/2018 SUBJECTIVE: The patient was seen and examined today and seems to be doing well and noted with the fo llowing vital signs. OBJECTIVE: VITAL SIGNS: Afebrile with temperature of 97.9, pulse of 71, respiratory rate of 16, O2 saturation o f 98%, blood pressure of 165/85. HEENT: Unremarkable with moist oral mucosa. NECK: Supple, no conjunctival injection or icterus. CARDIOVASCULAR SYSTEM: First and second heart sounds were heard. RESPIRATORY SYSTEM: Clear to auscultation. DIGESTIVE SYSTEM: Revealed a benign abdomen with positive bowel sounds. EXTREMITIES: No peripheral edema. SKIN: No new gross rash. LYMPHATICS: No peripheral lymphadenopathy. IMPRESSION: 1. End-stage renal disease, on hemodialysis Wednesday, Wednesday, Wednesday. 2. Cerebrovascular accident, on treatment. PLAN: 1. We will continue current regimen of hemodialysis Wednesday, Wednesday, and Wednesday. 2. Further management to be dependent on the clinical course.
[2018-03-08] MEDS: HumaLOG 300 UNITS/3 ML VIAL SC PRN ×3 (06:14→17:25)
[2018-03-08] MEDS: Aspirin 81 mg Enteric Coated Tablet PO SCH (09:08)
[2018-03-08] MEDS: Docusate 100 MG CAP PO SCH (09:08)
[2018-03-08] MEDS: Carvedilol 25 MG TAB PO SCH ×2 (09:08→17:25)
[2018-03-08] MEDS: Heparin 5,000 UNITS/ML VIAL SC SCH ×2 (09:08→14:50)
[2018-03-08] MEDS: hydrALAZINE 25 MG TAB PO SCH ×2 (09:08→14:50)
[2018-03-08] MEDS: Insulin NPH/Reg Insulin Hm 300 UNITS/3 ML VIAL SC SCH ×2 (09:08→17:24)
[2018-03-08] MEDS: Milk Of Magnesia 30 ML UDCUP PO PRN (14:55)
[2018-03-08 15:51] VITALS: TEMP 97.9
--- NOTE | 2018-03-08 16:50 | DIS ---
DATE OF ADMISSION: 03/01/2018 DATE OF DISCHARGE: 03/08/2018 ADMITTING DIAGNOSIS: Acute syncope. DISCHARGE DIAGNOSIS: Acute left brainstem infarct. SECONDARY DIAGNOSES: 1. End-stage renal disease on hemodialysis. 2. Hypertension. 3. Type 2 diabetes mellitus. 4. Hyperlipidemia. CONSULTANTS INVOLVED IN THE CARE: Dr. Holly Hawkins from Neurology. Dr. Garcia and Dr. Youngblood from Neph rology. HISTORY OF PRESENT ILLNESS AND HOSPITAL COURSE: In brief, this is a 57-year-old mal e with a known history of end-stage renal disease and type 2 diabetes mellitus, who presented to the hospital with a syncopal episode during dialysis. The patient was admitted to the hospital and was c losely monitored and the following day, he had another episode of unresponsiveness while he was sleep ing and his blood pressures were low. The patient was immediately taken to the CT and CT was negativ e. This is a high suspicion for the stroke. MRI was ordered which showed an evidence of a left brai nstem stroke. The patient was feeling weak and tired and lethargic, and PT and OT recommended inpati ent rehabilitation. The patient has been waiting for further inpatient rehab for the past few days. During this days, he had hemodialysis as per his schedule. He had no other complications during thi s admission. He was already on statin and aspirin. During this admission, TPA could not be given as patient has had symptoms more than 3-4 hours until it was diagnosed. The patient was discharged to inpatient rehab in stable condition. PHYSICAL EXAMINATION: On day of discharge, VITAL SIGNS: Blood pressure is 156/95, heart rate is 64, respirations 16, saturation 98%. GENERAL: The patient is a moderately built moderately nourished. CARDIOVASCULAR: S1, S2 normal. No murmurs, rubs or gallops. LUNGS: Bilateral air entry was equal. No wheezing, no crackles. ABDOMEN: Soft, nontender, no guarding, no rebound tenderness. Bowel sounds are normal. MUSCULOSKELETAL: No calf tenderness. No pedal edema. No joint tenderness. No joint swelling. DISCHARGE MEDICATIONS: Hydralazine 20 mg p.o. b.i.d., metformin 500 mg p.o. b.i.d., minoxidil 10 mg p.o. daily, pantoprazole 40 mg p.o. daily, aspirin 81 mg p.o. daily, atorvastatin [facility] p[facility]o. [facility], carvedilol 12.5 mg p.o. b.i.d., insulin aspart 15 units subcu b.i.d. DISCHARGE INSTRUCTIONS: 1. Continue activity as tolerated. Advised to follow up with primary care physician in 1-2 weeks. Advised to follow up with Neurology in 2-3 weeks. 2. Continue the diabetic and renal diet. 3. Activity: As tolerated. I spent 35 minutes with this patient on the day of discharge.
[2018-03-08 17:27] VITALS: BP 139/84
== END 2018-03-08 17:43 | DRG 64 ==
LOC: ERS 16:27 → 2NO 19:14 → 2SE 03-02 20:46
PROVIDERS: ADMIT Emergency Medicine; ATTEND Emergency Medicine
PROC: 5A1D70Z Performance of Urinary Filtration, Intermittent, Less than 6 Hours Per Day (ICD-10-PCS; principal; 2018-03-07)
DX: I63.9 Cerebral infarction, unspecified (principal); N18.6 End stage renal disease; I21.4 Non-ST elevation (NSTEMI) myocardial infarction; I13.2 Hypertensive heart and chronic kidney disease with heart failure and with stage 5 chronic kidney disease, or end stage renal disease; I50.32 Chronic diastolic (congestive) heart failure; I25.10 Atherosclerotic heart disease of native coronary artery without angina pectoris; Z99.2 Dependence on renal dialysis; E11.22 Type 2 diabetes mellitus with diabetic chronic kidney disease; E78.5 Hyperlipidemia, unspecified; I95.9 Hypotension, unspecified; Z91.14 Patient's other noncompliance with medication regimen; F14.10 Cocaine abuse, uncomplicated
CPT/HCPCS: 36415; 36416; 70450; 70551; 71045; 74022; 74176; 80048; 80053; 80061; 80307; 82010; 82550; 82553; 82805; 83605; 83690; 83735; 84484; 85025; 85610; 85730; 90935; 93005; 93306; 93880; 94760; 95816; 95819; 96361; 96372; 96374; 96375; A4216; C9113; G0257; G8978-GP-CK; G8979-GP-CJ; G8987-GO-CK; G8988-GO-CK; G8989-GO-CK; G8996-GN-CI; G8997-GN-CI; J0360; J1644; J1650; J1815; J2270; Q0162

== ENCOUNTER 2018-04-16 03:54 | Emergency (ER) | payer MEDICAID, OTHER ==
[2018-04-16] MEDS ORDERED: Magnesium Citrate 300 ML BOT ONE (05:39)
[2018-04-16] MEDS ORDERED: Bisacodyl 10 MG SUPP ONE (05:39)
[2018-04-16] MEDS ORDERED: cloNIDine 0.1 MG TAB ONE (05:39)
[2018-04-16 06:01] LABS: #Basophils 0.1 thou/uL (0.0-0.2); #Eosinphils 0.2 thou/uL (0.0-0.7); #Lymphocytes 0.8 thou/uL (1.20-3.40); #Monocytes 0.5 thou/uL (0.11-0.59); #Neutrophils 3.4 thou/uL (1.40-6.50); %Basophils 1.5 % (0.0-1.0); %Eosinophils 4.4 % (0.0-10.0); %Lymphocytes 14.9 % (21.0-51.0); %Monocytes 10.5 % (0.0-10.0); %Neutrophils 68.6 % (42.0-75.0); Hemoglobin 11.8 g/dL (14.0-18.0); Mean Corpuscular Volume 84.2 fL (78.0-98.0); Mean Platelet Volume 8.6 fL (7.4-10.4); Platelet Count 169 thou/uL (130-400); RBC Distribution Width 15.4 % (11.5-14.5); Red Blood Cell (RBC) Count 4.39 mill/uL (4.70-6.10)
[2018-04-16 06:04] LABS: ALT (SGPT) 7 U/L (8-55); AST (SGOT) 13 U/L (5-34); Alkaline Phosphatase 96 U/L (40-150); Anion Gap 12 mmol/L (10-20); BUN (Urea Nitrogen) 22 mg/dL (8.4-25.7); Bilirubin, Total 1.3 mg/dL (0.2-1.2); Calc. Creatinine Clearance 0 mL/min (70-130); Calcium 9.3 mg/dL (7.8-10.44); Carbon Dioxide 27 mmol/L (22-29); Chloride 96 mmol/L (98-107); Estimated GFR-MDRD 15; Globulin 3.7 g/dL (2.4-3.5); Glucose 315 mg/dL (70-105); Potassium 4.3 mmol/L (3.5-5.1); Protein, Total 7.7 g/dL (6.0-8.3); Sodium 131 mmol/L (136-145)
--- NOTE | 2018-04-16 08:20 | RAD ---
SUPINE ABDOMEN: Date: 04/16/18 HISTORY: Constipation. Abdominal pain. FINDINGS: Bowel gas pattern unremarkable. Scattered stool and gas in the colon. Small bowel gas pattern is nons pecific. No evidence of small bowel dilatation or obstruction. No soft tissue mass or abnormal calcif ication. Post cholecystectomy clips are noted. IMPRESSION: Unremarkable bowel gas pattern. POS: [facility]
== END 2018-04-16 09:16 ==
LOC: ERS 03:54
DX: K59.00 Constipation, unspecified (principal); I11.0 Hypertensive heart disease with heart failure; I50.9 Heart failure, unspecified; E78.2 Mixed hyperlipidemia; I25.2 Old myocardial infarction; E11.9 Type 2 diabetes mellitus without complications; Z99.2 Dependence on renal dialysis; Z79.899 Other long term (current) drug therapy; Z86.73 Personal history of transient ischemic attack (TIA), and cerebral infarction without residual deficits
CPT/HCPCS: 36415; 74018; 80053; 85025

== ENCOUNTER 2018-05-22 15:49 | Inpatient (IN) | payer OTHER, SELFPAY ==
[2018-05-22 16:17] LABS: Hemoglobin 10.1 g/dL (14.0-18.0); Mean Corpuscular HGB CONC 32.8 g/dL (32.0-36.0); Mean Corpuscular Hemoglobin 29.2 pg (27.0-31.0); Mean Corpuscular Volume 89.2 fL (78.0-98.0); RBC Distribution Width 13.7 % (11.5-14.5); Red Blood Cell (RBC) Count 3.47 mill/uL (4.70-6.10); White Blood Cell (WBC) Count 5.5 thou/uL (4.8-10.8)
[2018-05-22 16:19] LABS: #Eosinphils 0.2 thou/uL (0.0-0.7); #Monocytes 0.5 thou/uL (0.11-0.59); #Neutrophils 3.8 thou/uL (1.40-6.50); %Basophils 0.2 % (0.0-1.0); %Eosinophils 4.5 % (0.0-10.0); %Lymphocytes 17.6 % (21.0-51.0); %Monocytes 9.6 % (0.0-10.0); %Neutrophils 68.1 % (42.0-75.0)
--- NOTE | 2018-05-22 16:21 | CT ---
CT BRAIN NONCONTRAST: DATE: 05/22/2018 TIME: 3:59 p.m. HISTORY: A 57-year-old male with Altered mental status. Dysarthria. Vision loss. COMPARISON: CT from 02/28/2018 and MRI from 03/02/2018. FINDINGS: There is a small patchy hypodensity on the left side of the upper chelsey, consistent with the infarctio n that was acute or subacute on the MRI of 03/02/2018, not visible on the CT of 02/28/2018. There is a moderate sized patchy region of low attenuation, consistent with old infarction, in the mid and po sterior aspects of the right side of the midbrain, demonstrated on the previous CT and MRI. There are no new findings otherwise. Moderate chronic ischemic white matter changes of the cerebrum. Ventricles are normal in size and configuration. No acute intraaxial hemorrhage, mass effect, midl ine shift, or extraaxial fluid collection. The calvarium is intact. IMPRESSION: 1. No acute intracranial findings. 2. Old infarctions of the brainstem. MARC Vazquez POS: MATTHIAS
[2018-05-22 16:22] LABS: INR-International Normal Ratio 1.3; PTT 36.7 SEC (22.9-36.1); Prothrombin Time 16.2 SEC (12.0-14.7)
[2018-05-22 16:28] LABS: ALT (SGPT) 18 U/L (8-55); AST (SGOT) 14 U/L (5-34); Alkaline Phosphatase 88 U/L (40-150); Anion Gap 24 mmol/L (10-20); BUN (Urea Nitrogen) 54 mg/dL (8.4-25.7); Bilirubin, Total 0.9 mg/dL (0.2-1.2); Calc. Creatinine Clearance 0 mL/min (70-130); Calcium 8.9 mg/dL (7.8-10.44); Carbon Dioxide 16 mmol/L (22-29); Chloride 94 mmol/L (98-107); Estimated GFR-MDRD 7; Globulin 3.4 g/dL (2.4-3.5); Glucose 170 mg/dL (70-105); Potassium 5.1 mmol/L (3.5-5.1); Protein, Total 7.4 g/dL (6.0-8.3); Sodium 129 mmol/L (136-145)
[2018-05-22 16:29] LABS: Large Platelets SLIGHT; MDiff Complete? YES; Mean Platelet Volume 9.2 fL (7.4-10.4); Platelet Count 101 thou/uL (130-400)
[2018-05-22 16:32] LABS: CKMB 4.6 ng/mL (0-6.6); Troponin I 0.282 ng/mL (< 0.028)
[2018-05-22 17:55] LABS: Acetaminophen Less than 6.0 mcg/mL (10.0-30.0); Alcohol Less than 10 mg/dL (Less than 10); Salicylate Less than 8.0 mg/dL (15.0-30.0)
[2018-05-22] MEDS ORDERED: Enoxaparin Sodium 100 MG/ML SYRINGE ONE (18:48)
--- NOTE | 2018-05-22 19:10 | RAD ---
RADIOGRAPH CHEST 1 VIEW: HISTORY: A 57-year-old male with elevated serum lactate. FINDINGS: There is cardiomegaly. There is no evidence of air space density, pulmonary edema, or pneumothorax. T he lateral costophrenic angles are sharp. IMPRESSION: 1) No acute pulmonary findings. 2) Cardiomegaly without congestive heart failure. octaviano [] POS: JIN
[2018-05-22 21:00] LABS: Troponin I 0.287 ng/mL (< 0.028)
[2018-05-22] MEDS ORDERED: Acetaminophen 325 MG TAB PO PRN (21:10)
[2018-05-22 21:56] VITALS: BMI 28.0
[2018-05-22] MEDS ORDERED: Dextrose 5% in Water 1,000 ML IV PRN (21:56)
[2018-05-22] MEDS ORDERED: Dextrose 50% Abboject 50 ML SYRINGE IVP PRN (21:56)
[2018-05-22 22:41] LABS: Lactic Acid 3.8 mmol/L (0.5-2.2)
[2018-05-22 22:51] LABS: Troponin I 0.283 ng/mL (< 0.028)
[2018-05-23 05:14] LABS: #Eosinphils 0.2 thou/uL (0.0-0.7); #Lymphocytes 1.1 thou/uL (1.20-3.40); #Monocytes 0.4 thou/uL (0.11-0.59); #Neutrophils 3.8 thou/uL (1.40-6.50); %Basophils 0.3 % (0.0-1.0); %Eosinophils 3.7 % (0.0-10.0); %Lymphocytes 19.1 % (21.0-51.0); %Neutrophils 68.9 % (42.0-75.0); Hemoglobin 10.4 g/dL (14.0-18.0); Mean Corpuscular HGB CONC 33.4 g/dL (32.0-36.0); Mean Corpuscular Hemoglobin 29.5 pg (27.0-31.0); Mean Corpuscular Volume 88.3 fL (78.0-98.0); Mean Platelet Volume 9.4 fL (7.4-10.4); Platelet Count 108 thou/uL (130-400); RBC Distribution Width 13.7 % (11.5-14.5); Red Blood Cell (RBC) Count 3.52 mill/uL (4.70-6.10); White Blood Cell (WBC) Count 5.5 thou/uL (4.8-10.8)
[2018-05-23 05:27] LABS: Anion Gap 24 mmol/L (10-20); BUN (Urea Nitrogen) 68 mg/dL (8.4-25.7); Calc. Creatinine Clearance 10 mL/min (70-130); Calcium 8.6 mg/dL (7.8-10.44); Carbon Dioxide 15 mmol/L (22-29); Cardiac Risk 1.6 (Less than 4.5); Chloride 94 mmol/L (98-107); Cholesterol 56 mg/dl (< 200 Desired); Estimated GFR-MDRD 6; Glucose 120 mg/dL (70-105); HDL Cholesterol 34 mg/dL (>60 Neg Risk); LDL Cholesterol, Calculated 9 mg/dL; Potassium 5.3 mmol/L (3.5-5.1); Sodium 128 mmol/L (136-145); Triglycerides 66 mg/dL (Less than 150)
[2018-05-23] MEDS: Aspirin 81 mg Enteric Coated Tablet PO SCH (08:43)
[2018-05-23] MEDS ORDERED: Carvedilol 25 MG TAB PO SCH (09:00)
[2018-05-23] MEDS ORDERED: hydrALAZINE 25 MG TAB PO SCH (09:00)
[2018-05-23] MEDS ORDERED: Enoxaparin Sodium 40 MG/0.4 ML SYRINGE SC SCH (09:00)
--- NOTE | 2018-05-23 11:50 | HP ---
TIME OF EVALUATION: 07:50 p.m. CODE STATUS: FULL CODE. CHIEF COMPLAINT: Slurred speech and change in mental status. HISTORY OF PRESENT ILLNESS: This is a 57-year-old male patient with past medical history of stroke w ith sequela of left-sided weakness. The patient came to the hospital after having sensation that he was not feeling well since yesterday, and during the day, the patient had an episode of passing out v ersus getting confused, patient does not remember the exact details, the symptoms were severe. For t hat reason, he was transferred here to the hospital. Patient does have slurred speech and he reporte d that he had those symptoms as sequelae to prevoius stroke. No clear triggers, no alleviating facto rs. The patient is still having slurred speech. REVIEW OF SYSTEMS: Constitutional: No fever or chills. Generalized weakness. Respiratory: No cou gh, sputum production, or shortness of breath. Cardiovascular: No chest pain, palpitations, or shor tness of breath. Gastrointestinal: No nausea, no vomiting, diarrhea, or abdominal pain. He has no dizziness. The patient has slurred speech, episode of passing out. He does have a sequela of left-s ided weakness from previous stroke. Genitourinary: No burning on urination. Extremities: No leg s welling. All other systems were reviewed and are negative except for the findings mentioned above. PAST MEDICAL HISTORY: The patient has a history of CHF, hyperlipidemia, NC, cholecystectomy, EGD, di alysis fistula in the right arm. PSYCHIATRIC HISTORY: No previous psychiatric history. SOCIAL HISTORY: Lives at [facility]. FAMILY HISTORY: Reviewed and noncontributory for current presentation. KNOWN ALLERGIES: No known drug allergies. REPORTED MEDICATIONS: Trazodone, clonidine, regular Humulin 70/30, pantoprazole, aspirin, minoxidil, multivitamin, polyethylene glycol, docusate sodium, hydralazine, metformin, atorvastatin. PHYSICAL EXAMINATION: VITAL SIGNS: On presentation, the patient had a blood pressure 114/60, heart rate 98, respiratory ra te was 18, temperature 97.9, pain 0/10, oxygen saturation 98 on room air. GENERAL APPEARANCE: The patient is alert, oriented, in no any acute distress. HEAD AND EYES: Normal conjunctivae. Moist oral mucosa. Anicteric. NECK: No JVD. RESPIRATORY: Bilateral air entry. No rales, no wheezes. Symmetric expansion. CARDIOVASCULAR: Normal rate, regular rhythm. No murmurs, no gallop. EXTREMITIES: No edema. ABDOMEN: Soft, normal bowel sounds. MUSCULOSKELETAL: Baseline range of motion and strength. No tenderness. SKIN: Warm and intact. No pallor, no rash, no redness. NEUROLOGIC: Baseline sensorium. No evidence of any focal weakness. The patient has a aphasia, ther e is a moderate aphasia, having difficulty articulating words. Otherwise, cranial nerves seem to be intact. PSYCHIATRIC: The patient is in a good mood. No anxiety, oriented, optimal judgment. IMAGING: EKG was reviewed. The patient has normal sinus rhythm, possible left atrial enlargement, T -wave abnormality, ischemia and prolonged QT. Ventricular rate 88, VA 150, QRS 98, QT correcte d 462. Brain CT was reviewed. The patient had no acute intracranial findings or infarctions of the brainstem. Chest x-ray was reviewed. The patient had no acute pulmonary findings, cardiomegaly with out congestive heart failure. LABORATORY DATA: Reviewed. White count 5.5, hemoglobin 10.1, platelet count 101,000. Coagulation: PT 16.2, INR 1.3, PTT 36.7. Sodium 129, potassium 5.1, chloride 94, carbon dioxide 16, anion gap 24 , BUN 54, creatinine 9.9, GFR 7, glucose 170. Lactic acid 5.3, came down to 3.8, calcium 8.9, total bilirubin 0.9. AST and ALT were negative. CK 308, troponin 0.2, the second one was 0.2 are the same level. Plasma alcohol was negative. ASSESSMENT AND PLAN: The patient will be placed in the hospital with the following medical problems: 1. Transient ischemic attack versus stroke. Patient has some slurred speech, episode of passing out , we will do a stroke protocol, we will treat it accordingly. 2. End-stage renal disease on hemodialysis, patient will need hemodialysis as inpatient Nephrology h as been consulted. 3. Anion gap metabolic acidosis likely secondary to chronic kidney disease, treat underlying conditi on. 4. Hyponatremia, 139 is moderate, might be secondary to dilutional due to end-stage renal disease an d hypovolemia. 5. Increased lactic acid 5.3, it came down to 3.8, . We will monitor. No evidence of any acut e infection at this point. 6. [id number] myocardial infarction likely type 2, troponin 0.2, second one was 0.2, likely se condary to chronic kidney disease. 7. Marked chronic normocytic anemia, hemoglobin 10.1, can be treated as an outpatient. We will defe r to Nephrology for any further management. 8. Deep venous thrombosis prophylaxis.
--- NOTE | 2018-05-23 14:48 | MRI ---
MRI BRAIN WITHOUT CONTRAST: Date: 05/23/18 HISTORY: Altered mental status, dysarthria, vision loss, TIA, slurred speech. FINDINGS: Comparison is made with the MRI of 03/02/18. Correlation is made with the previous day's CT scan. No restricted diffusion is identified. Old infarct is seen in the brainstem. Changes of cortical atro phy and chronic small vessel ischemic disease are redemonstrated. No hemorrhage, midline shift, or ab normal extra-axial fluid collections are seen. IMPRESSION: No evidence of acute intracranial process. POS: [facility]
[2018-05-23 16:31] LABS: Actual Bicarbonate (HCO3a) 14.5 mEq/L (22-28); CO2 Tension 29.2 mmHg (35.0-45.0); O2 Tension (PaO2) 98.2 mmHg (80.0-100.0); pH, Arterial 7.31 (7.35-7.45)
[2018-05-23 16:32] LABS: Base Excess (BEa) -10.5 mEq/L (-2.0 to +3.0); Hemoglobin (Hb) 10.7 g/dL (14.0-18.0); Puncture Site LRA
[2018-05-23] MEDS ORDERED: Sodium Bicarb 50 MEQ/50 ML Abboject 8.4% SYRINGE IVP SCH (16:45)
[2018-05-23] MEDS ORDERED: Sodium Bicarbonate 150 MEQ in Dextrose 5% in Water 1,000 ML IV SCH (16:45)
--- NOTE | 2018-05-23 18:13 | CON ---
DATE OF CONSULTATION: 05/23/2018 CARDIOLOGY CONSULTATION PRIMARY LAB SUPPORT TECH: Johnny Monroy M.D. REASON FOR CONSULTATION: Bradycardia. HISTORY OF PRESENT ILLNESS: Mr. Loo is a 57-year-old -[place] gentleman who comes to the ospital for slurred speech and a change in mental status. He had a stroke back in December where he pre sented similarly. He comes in this time apparently altered. On my evaluation, he is unresponsive, b reathing on his own, satting 98%. However, he is not arousable. Cannot get any history from him. H e will open his eyes to pain or to verbal stimuli. PAST MEDICAL HISTORY: 1. End-stage renal disease on hemodialysis. 2. History of diastolic heart failure in the past. 3. Hyperlipidemia. 4. Substance abuse. 5. Type 2 diabetes. 6. Recent stroke. PAST SURGICAL HISTORY: Cholecystectomy. OUTPATIENT MEDICATIONS: 1. Insulin. 2. Loperamide. 3. Guaifenesin. 4. Trazodone. 5. Polyethylene glycol. 6. Multivitamin. 7. . 8. Clonidine p.r.n. 9. Tylenol No. 3. 11. Acetaminophen. 12. Lactulose. 13. Simethicone. 14. Calcium carbonate. 15. Atorvastatin. 16. Carvedilol 12.5 mg b.i.d. 17. Aspirin 81 a day. 18. Metformin 500 mg b.i.d. 19. Hydralazine 25 mg b.i.d. 20. Pantoprazole 40 every day. 21. Minoxidil 10 mg a day. 22. Insulin NPH, sliding scale. ALLERGIES: No known drug allergies. SOCIAL HISTORY: Former substance abuser, however, none since he was in the [employer] [facility]. No tobacco or alcohol. FAMILY HISTORY: Noncontributory for this. REVIEW OF SYSTEMS: Unobtainable as the patient is nonverbal currently. PHYSICAL EXAMINATION: VITAL SIGNS: Temperature 97.5, pulse 50, respiratory rate 20, satting 98% on room air, blood pressur e when I walked in the room was 83/42. GENERAL: Some unresponsive, nonverbal, not responding to verbal stimuli or pain. HEENT: Normocephalic, atraumatic. NECK: Supple. LUNGS: Coarse breath sounds bilateral. CARDIOVASCULAR: S1, S2, no S3 or S4, distant heart sounds difficult to hear from lung sounds. ABDOMEN: Soft, positive bowel sounds. EXTREMITIES: No edema. SKIN: Warm and dry. LABORATORY WORK: Reviewed. CBC was reviewed. Coags were reviewed. Blood gas was reviewed and chem istries were reviewed. Sodium is 128, potassium is 5.3, anion gap of 24, BUN of 68, creatinine of 10 . Lactic acid was 3.8, calcium 8.6, triglycerides of 66, cholesterol 56, LDL of 9, HDL of 34. EKG was reviewed. Telemetry was reviewed, sinus bradycardia. He had 2 episodes of 2-second pauses. Most recent echo was done in February of this year with an EF of 50%-55%, severe LVH and diastolic dysfunc tion. ASSESSMENT AND PLAN: 1. Bradycardia: Heart rate in the 50s, unlikely to be the source of his hypotension. No acute lashonda cation for pacemaker, he has had two pauses that were about 2 seconds in length. Not long enough to require pacemaker placement. I believe his decompensated state is related to a metabolic issue as [facility] MRI of the brain was unremarkable and not suggestive of a new stroke. He is extremely ill at that time, unresponsive and I am concerned that he may not be able to control his airway. I spoke with [facility] Hospitalist and would recommend transfer to the ICU at that time until this is resolved. May want to give a dose of Narcan in case this is related to any substance that he might have ingested. UDS i s still pending at the time. 2. Altered mentation. Per primary team, more than likely a metabolic process. 3. Hypertension: He has a chronic low blood pressure. He may need pressors if he does not respond soon. 4. Patient is severely ill, would not be unexpected. Thank you for allowing us to participate in the care of your patient. Dr. Monroy, his primary Card iologist will follow up tomorrow.
[2018-05-23] MEDS: DOPamine 400 MG/D5W 250 ML 250 ML IVPB SCH (18:20)
[2018-05-23] MEDS ORDERED: Naloxone HCl 2 MG in Sodium Chloride 0.9% 500 ML IV SCH (18:30)
[2018-05-23] MEDS: Atorvastatin Calcium 40 MG TAB PO SCH (20:58)
--- NOTE | 2018-05-23 22:12 | PDOC.PN ---
- Subjective Encounter Start Date: 05/23/18 Encounter Start Time: 15:00 Patient seen and examined for AMS. Lethagic. Hypotensive requiring stopping dialysis. - Objective Resuscitation Status: Resuscitation Status FULL:Full Resuscitation MAR Reviewed: Yes Vital Signs & Weight: Vital Signs (12 hours) Temp Pulse Resp BP Pulse Ox 05/23/18 21:00 96.9 F L 05/23/18 20:00 96.9 F L 86 18 98 05/23/18 18:24 69 13 100 05/23/18 17:36 54 L 21 H 100 05/23/18 15:18 56 L 18 91/55 L 95 05/23/18 11:45 97.5 F L 50 L 20 98 Weight Weight 200 lb 11.2 oz Most Recent Monitor Data Heart Rate from ECG 82 NIBP 147/64 NIBP BP-Mean 82 Respiration from ECG 16 SpO2 100 I&O: 05/22/18 05/23/18 05/24/18 06:59 06:59 06:59 Intake Total 400 75 Balance 400 75 Result Diagrams: 05/23/18 04:45 05/23/18 04:45 Additional Labs: Accuchecks 05/23/18 05/23/18 05/23/18 21:10 17:26 16:38 POC Glucose 166 H 145 H 133 H 05/23/18 05/23/18 05/23/18 14:37 11:00 06:26 POC Glucose 129 H 134 H 127 H Radiology Reviewed by me: Yes (CXR - No CHF) EKG Reviewed by me: Yes (Tele SB) Phys Exam - Physical Examination Constitutional: NAD Lethargic Respiratory: no wheezing, no rales, no rhonchi No accessory muscle use Cardiovascular: no significant murmur, no rub No heaves/pulsations. S1S2 + Gastrointestinal: soft, non-tender, no distention, positive bowel sounds Musculoskeletal: no edema Neuro/Psych - Lethargic, Not following verbal commands Dx/Plan - Plan DVT proph w/SCDs IMPRESSION: 1. Toxic Metabolic Encephalopathy - MRI brain neg 2. Hypotension - ?etio 3. ESRD on dialysis - Could not complete dialysis due to hypotension 4. DM2 5. Lactic acidosis 6. Elevated troponins due to demand ischemia 7. HLD 8. h/o HTN PLAN: Transfer to CCU per Cardiology Hold Coreg Bicarb drip due to Metabolic acidosis AM labs Review of Systems - Review of Systems Other: Cannot obtain due to current mentation. - Medications/Allergies Allergies/Adverse Reactions: Allergies Allergy/AdvReac Type Severity Reaction Status Date / Time No Known Allergies Allergy Verified 02/18/15 19:53 Medications: Current Medications Acetaminophen (Tylenol) 650 mg PO Q4H PRN PRN Reason: Headache/Fever or Pain Aspirin (Ecotrin) 81 mg PO DAILY [facility] Last Admin: 05/23/18 08:43 Dose: 81 mg Atorvastatin Calcium (Lipitor) 40 mg PO HS [facility] Last Admin: 05/23/18 20:58 Dose: 40 mg Dextrose/Water (Dextrose 50%) 25 gm IVP PRN PRN PRN Reason: HYPOGLYCEMIA PROTOCOL Glucagon (Glucagon) 1 mg IM PRN PRN PRN Reason: HYPOGLYCEMIA PROTOCOL Dextrose/Water (D5w) 1,000 mls @ 0 mls/hr IV INF PRN; As Directed PRN Reason: HYPOGLYCEMIA PROTOCOL Dopamine HCl/Dextrose (Dopamine/D5w) 250 mls @ 0 mls/hr IVPB INF LM; Titrate PRN Reason: Protocol Last Admin: 05/23/18 18:20 Dose: 250 mls Naloxone HCl 2 mg/Miscellaneous Medication 1 each/ Sodium Chloride 505 mls @ 0 mls/hr IV INF LM; As Directed PRN Reason: Protocol Insulin Human Lispro (Humalog) 0 units SC .MODERATE SLIDING SC PRN; Protocol PRN Reason: MODERATE SLIDING SCALE Lactulose (Lactulose) 10 gm PER TUBE QID [facility] Last Admin: 05/23/18 20:57 Dose: 10 gm Pantoprazole Sodium (Protonix) 40 mg PO DAILY [facility] Last Admin: 05/23/18 08:43 Dose: 40 mg
--- NOTE | 2018-05-23 22:56 | OP ---
DATE OF PROCEDURE: 05/23/2018 PROCEDURE: Left femoral central line placement. PREOPERATIVE DIAGNOSES: Hypotension, poor IV access. POSTOPERATIVE DIAGNOSES: Hypotension, poor IV access. ANESTHESIA: Lidocaine 1% without epinephrine. DESCRIPTION OF PROCEDURE: This procedure was done on an emergent basis. No one was available to giv e consent for the patient; therefore, it was felt the procedure need to be done on an emergent basis in order to provide life-saving medication. Left femoral region was scrubbed with chlorhexidine and draped sterilely. A triple lumen catheter wa s placed in the left femoral vein on first attempt. Three ports flushed venous blood. The patient t olerated the procedure well.
--- NOTE | 2018-05-23 23:14 | CON ---
DATE OF CONSULTATION: 05/23/2018 This is a 90 minutes of critical care time, not inclusive of time spent putting in central line. REASON FOR CONSULTATION: Altered mental status, bradycardia, and hypotension. HISTORY OF PRESENT ILLNESS: This patient was sent from telemetry over to the ICU earlier. I had not been informed by any of the physicians involved as to what was going on, so what I have is, reconstr ucted from looking over his H&P and talking with the nurses. The patient cannot give a history at th is time. I am told he was okay earlier today and that he became lethargic around the time of attempted dialysi s. He was having sinus pauses, and he was also hypotensive. I have seen him in the past at one time , where he was in the hospital with hypotension and altered mental status and got better after having his blood pressure increased with vasopressors. PAST MEDICAL HISTORY: 1. Congestive heart failure. 2. Hyperlipidemia. 3. Colon cancer. 4. Malignant hypertension. 5. Drug abuse, most notably cocaine. 6. Diabetes mellitus. 7. Hepatitis B. 8. Hepatitis C. 9. Chronic kidney disease requiring dialysis. PAST SURGICAL HISTORY: Laparoscopic cholecystectomy in 2012. He also has a fistula placed in the ri ght arm. ALLERGIES: None. SOCIAL HISTORY: He current lives in a usp in the past. He abuses cocaine and marijuana. REVIEW OF SYSTEMS: Cannot be obtained due to his altered mental status. MEDICATIONS PRIOR TO ADMISSION: Insulin, loperamide, guaifenesin, trazodone, polyethylene glycol, mu ltivitamin, docusate, clonidine, acetaminophen with codeine, lactulose, simethicone, calcium carbonat e, Lipitor, Coreg, aspirin, metformin, hydralazine, Protonix, minoxidil and 70/30 insulin. PHYSICAL EXAMINATION: VITAL SIGNS: Heart rate 57, blood pressure now 128/57 on dopamine drip, respiratory rate 17, O2 sat 100%. GENERAL: He is responsive to pain and he will curse and move around briefly. He did not get better with Narcan administration. HEENT: Unremarkable. NECK: No JVD. LUNGS: Clear to auscultation without wheezing or rhonchi. CARDIAC: S1, S2, slightly bradycardic without murmur. ABDOMEN: Soft, nontender. EXTREMITIES: Right forearm shunt noted. NEUROLOGIC: Withdraw to pain, his x-ray shows cardiomegaly with some haziness bilaterally consistent with some pulmonary edema. LABORATORY DATA: Sodium 128, potassium 5.3, chloride 94, CO2 of 15, BUN 68, creatinine 10.9, glucose 120. Lactate 3.8, pH 7.31, pCO2 of 29, pO2 of 98. White blood cell count 5.5, hematocrit 31.1, honorio telet count 108. MRI of the head was negative. ASSESSMENT: 1. Encephalopathy, which is probably multifactorial. We may be dealing with hepatic encephalopathy, which is being aggravated by bradycardia and low blood pressure. 2. Renal failure requiring hemodialysis. 3. History of chronic hepatitis B and C. 4. History of drug abuse. PLAN: 1. The patient has been placed on BiPAP. 2. Insert NG tube and restart his lactulose. 3. Draw stat ammonia level. 4. Central line has been placed in the left groin for the purpose of administrating dopamine. Dopam ine was chosen specifically to see if we can increase his heart rate a little as well as having a pos itive effect on his blood pressure. RECOMMENDATIONS: I would empirically treat him with some antibiotics given his elevated lactate at t he time of admission and sent cultures if they have not already been done.
--- NOTE | 2018-05-24 01:10 | CON ---
DATE OF CONSULTATION: 05/23/2018 CONSULTING PHYSICIAN: Abe Martinez M.D. REFERRING PHYSICIAN: Dr. Ontiveros. REASON FOR CONSULTATION: Need for maintenance hemodialysis. IMPRESSION: 1. End-stage renal disease, hemodialysis dependent Wednesday, Wednesday, and Wednesday. 2. Mental status change, possibly related to toxic metabolic encephalopathy. 3. Hyperkalemia with metabolic acidosis. 4. Recent history of CVA with residual slurred speech. PLAN: 1. The patient to undergo hemodialysis with ultrafiltration as tolerated by hemodynamics. Hopefully , this will address the hyperkalemia and potential toxic metabolic encephalopathy. 2. Further management to be dependent on the clinical course. HISTORY OF PRESENT ILLNESS: This is a 57-year-old gentleman with end-stage renal disease, hemodialys is dependent on a Wednesday, Wednesday, Wednesday schedule, who presented here with mental status change, c onfusion with slurred speech. The patient has been evaluated with imaging studies of the brain that showed no acute process. Initially, patient was on the floor a bit decompensated in the way of hypot ension and bradycardia, necessitating the transfer to ICU. At this time of dictation, patient seems to be much improved. PAST MEDICAL HISTORY: Significant for congestive heart failure, dyslipidemia, cholecystectomy, hepat itis B, end-stage renal disease. FAMILY HISTORY: None significantly related to presenting illness. SOCIAL HISTORY: The patient lives alone. No alcohol or no illicit drug use . REVIEW OF SYSTEMS: Highly limited given the mental status of this patient. The patient seems to com plain this point. LABORATORY INVESTIGATIONS: Significant for the following: Sodium of 128, potassium 5.3, bicarb of 1 5, BUN of 68 with creatinine 10.9 with a lactic acid of 3.8. Blood gas showed a pH of 7.31, pCO2 of 29. CBC showed hemoglobin 10.4. PHYSICAL EXAMINATION: GENERAL: Patient seems to be somewhat confused, but able to speak, noted with the following vital si gns. VITAL SIGNS: Afebrile, temperature 97.5, pulse 50-69, respiratory rate of 18, blood pressure 91/55. HEENT: Unremarkable. Moist oral mucosa. Neck was supple, no conjunctival injection, no icterus. CARDIOVASCULAR: First and second heart sounds were heard. RESPIRATORY: Clear to auscultation. DIGESTIVE: Revealed a benign abdomen with positive bowel sounds. EXTREMITIES: No peripheral edema. SKIN: No new gross rash. LYMPHATICS: No peripheral lymphadenopathy. SUMMARY: This 57-year-old gentleman with end-stage renal disease who presented here with mental stat us change.
[2018-05-24] MEDS: DOPamine 400 MG/D5W 250 ML 250 ML IVPB SCH (03:25)
[2018-05-24 04:29] LABS: #Eosinphils 0.1 thou/uL (0.0-0.7); #Lymphocytes 0.8 thou/uL (1.20-3.40); #Monocytes 0.8 thou/uL (0.11-0.59); %Basophils 0.6 % (0.0-1.0); %Eosinophils 1.6 % (0.0-10.0); %Lymphocytes 10.8 % (21.0-51.0); %Monocytes 9.9 % (0.0-10.0); %Neutrophils 77.1 % (42.0-75.0); Hemoglobin 10.5 g/dL (14.0-18.0); Mean Corpuscular HGB CONC 33.3 g/dL (32.0-36.0); Mean Corpuscular Volume 87.3 fL (78.0-98.0); Platelet Count 131 thou/uL (130-400); RBC Distribution Width 13.9 % (11.5-14.5); White Blood Cell (WBC) Count 7.7 thou/uL (4.8-10.8)
[2018-05-24 04:51] LABS: Lactic Acid 2.4 mmol/L (0.5-2.2)
[2018-05-24 04:59] LABS: ALT (SGPT) 15 U/L (8-55); AST (SGOT) 14 U/L (5-34); Albumin 3.8 g/dL (3.5-5.0); Alkaline Phosphatase 84 U/L (40-150); Anion Gap 24 mmol/L (10-20); BUN (Urea Nitrogen) 46 mg/dL (8.4-25.7); Bilirubin, Total 1.2 mg/dL (0.2-1.2); Calc. Creatinine Clearance 15 mL/min (70-130); Calcium 8.8 mg/dL (7.8-10.44); Carbon Dioxide 20 mmol/L (22-29); Chloride 95 mmol/L (98-107); Estimated GFR-MDRD 9; Globulin 3.4 g/dL (2.4-3.5); Glucose 159 mg/dL (70-105); Potassium 4.7 mmol/L (3.5-5.1); Protein, Total 7.2 g/dL (6.0-8.3); Sodium 134 mmol/L (136-145)
--- NOTE | 2018-05-24 07:41 | PRG ---
DATE OF SERVICE: 05/24/2018 Thirty-five minutes critical care time. The patient remains on noninvasive mechanical ventilation. He is much more awake than yesterday, but has periods where he becomes extremely somnolent. PHYSICAL EXAMINATION: VITAL SIGNS: Temperature 98.1, pulse 79, blood pressure 116/52. He is currently on a dopamine drip 2.5 mcg per kilogram per minute. Total intake for the last 24 hours 323, output 3500. HEENT: Unremarkable. NECK: No JVD. LUNGS: Clear anteriorly. CARDIOVASCULAR: S1 and S2 regular on a dopamine drip. ABDOMEN: Soft, nontender, nondistended. EXTREMITIES: No clubbing, cyanosis or edema. LABORATORY DATA: White blood cell count 7.7, hematocrit 31.4, platelet count 131. Sodium 134, potas sium 4.7, chloride 95, CO2 20, BUN 46, creatinine 7.3, glucose 159. His ammonia level yesterday was 37, glucose 139. ASSESSMENT: 1. Encephalopathy, which is likely multifactorial. His ammonia level is not overtly high, so I do n ot think this is decompensated hepatic encephalopathy. 2. Chronic renal failure with extreme elevated BUN and creatinine at the time of admission. 3. Sinus bradycardia which is better after placed on a dopamine drip. 4. History of drug abuse. PLAN: 1. Wean off dopamine drip and BiPAP as tolerated. 2. Continue intermittent hemodialysis. 3. Continue lactulose for his history of hepatic encephalopathy.
[2018-05-24] MEDS: Aspirin 81 mg Enteric Coated Tablet PO SCH (09:30)
--- NOTE | 2018-05-24 14:41 | PRG ---
DATE OF SERVICE: 05/24/2018 SUBJECTIVE: The patient is seen and examined at the bedside. He is able to answer my simple questio ns, but he is very comatose and he falls asleep during my visit. OBJECTIVE: VITAL SIGNS: Blood pressure is 107/51, pulse is 76, respiratory rate is 19, O2 saturations 92% on ro om air. HEENT: His pupils are responding to light properly. Oral mucosa is somewhat dry. NECK: Supple. LUNGS: Clear. HEART: S1, S2 normal, no S3, no S4. ABDOMEN: Soft and nontender. EXTREMITIES: No clubbing, cyanosis or edema. NEUROLOGIC: He is comatose. He is able to move his all 4 extremities. There is not any focal defic its. He is able to answer my few simple questions properly, but he falls asleep quickly. LABORATORY DATA: Showed white count of 7.7, hemoglobin 10.5, hematocrit 31.4, platelet count 131,000 . Sodium of 134, potassium 4.0, chloride 95, CO2 20, BUN 46, creatinine 7.32. Glycemia is ranging f rom 129 to 166. Lactic acid is 2.4. Microbiology: Two blood cultures negative. IMPRESSION: 1. Encephalopathy, improved. I agree that this was probably multifactorial. His hypotension with s ome bradycardia and some hepatic dysfunction were contributing to his encephalopathy. 2. Hypotension of unclear etiology. 3. End-stage renal disease, on dialysis. He was not able to complete his dialysis secondary to hypo tension. 4. Diabetes mellitus type 2, controlled. 5. Lactic acidosis. 6. Hyperlipidemia. 7. History of hypertension. PLAN: The patient was carried to the critical care unit with vasopressors and BiPAP. He is of both. His ammonia level was only 37, which is not really elevated, but it could be contributing to his me ntal status. Today, he is doing better. We will continue neuro checks every 4 hours and Neurology c onsultant is still to see the patient today.
[2018-05-24] MEDS: HumaLOG 300 UNITS/3 ML VIAL SC PRN (18:10)
[2018-05-24] MEDS: Atorvastatin Calcium 40 MG TAB PO SCH (20:26)
--- NOTE | 2018-05-24 21:38 | PRG ---
DATE OF SERVICE: 05/24/2018 SUBJECTIVE: Patient is seen and examined, feeling better, note with the following vital signs. PHYSICAL EXAMINATION: VITAL SIGNS: Afebrile with temperature 97.9, pulse 76, respiratory rate of 21. HEENT: Unremarkable with moist oral mucosa. NECK: Supple, No conjunctival injection or icterus. CARDIOVASCULAR: First and second heart sounds were heard. RESPIRATORY: Clear to auscultation. DIGESTIVE: Revealed a benign abdomen with positive bowel sounds. EXTREMITIES: No peripheral edema. SKIN: No new gross rash. LYMPHATICS: No peripheral lymphadenopathy. LABORATORY AND X-RAY FINDINGS: Hemoglobin of 10.5. Chemistry showed a creatinine of 7.32, BUN of 46 , potassium 4.7, sodium 134. IMPRESSION: 1. End-stage renal disease, hemodialysis dependent. 2. Anemia of chronic kidney disease. PLAN: 1. The patient to be dialyzed tomorrow in accordance with his schedule with ultrafiltration as abrahan ated by hemodynamics. 2. Further management to be dependent on a clinical course.
[2018-05-25 04:39] LABS: Anion Gap 22 mmol/L (10-20); BUN (Urea Nitrogen) 67 mg/dL (8.4-25.7); Calc. Creatinine Clearance 11 mL/min (70-130); Calcium 8.3 mg/dL (7.8-10.44); Carbon Dioxide 22 mmol/L (22-29); Chloride 94 mmol/L (98-107); Estimated GFR-MDRD 7; Glucose 107 mg/dL (70-105); Sodium 133 mmol/L (136-145)
[2018-05-25 05:02] LABS: #Eosinphils 0.2 thou/uL (0.0-0.7); #Lymphocytes 0.8 thou/uL (1.20-3.40); #Monocytes 0.7 thou/uL (0.11-0.59); #Neutrophils 3.3 thou/uL (1.40-6.50); %Basophils 0.1 % (0.0-1.0); %Lymphocytes 15.9 % (21.0-51.0); %Monocytes 14.3 % (0.0-10.0); %Neutrophils 65.8 % (42.0-75.0); Hemoglobin 9.8 g/dL (14.0-18.0); Mean Corpuscular HGB CONC 33.6 g/dL (32.0-36.0); Mean Corpuscular Hemoglobin 29.5 pg (27.0-31.0); Mean Platelet Volume 8.8 fL (7.4-10.4); PLT Morphology Comment Appears Decreased; Platelet Count 109 thou/uL (130-400); RBC Distribution Width 14.1 % (11.5-14.5)
--- NOTE | 2018-05-25 08:55 | PRG ---
DATE OF SERVICE: 05/25/2018 SUBJECTIVE: Mr. Loo remains in the CCU. He is about to undergo dialysis this morning. I find him somewhat dysarthric and confused, but overall better than 2 days ago. PHYSICAL EXAMINATION: VITAL SIGNS: Temperature 97.9, pulse 76, blood pressure 90/43, but usually running in the 120s/60s. A 24-hour intake 1097, output 3500 yesterday. HEENT: Pupils react. Sclerae anicteric. Oropharynx clear. NECK: No JVD. LUNGS: Clear anteriorly. CARDIOVASCULAR: S1, S2 regular, without murmur. ABDOMEN: Soft, nontender, nondistended. EXTREMITIES: No clubbing, cyanosis. He has a left femoral central line in place. LABORATORY DATA: White blood cell count 5, hematocrit 29.1, platelet count 109. Sodium 133, potassi um 5, chloride 94, CO2 of 22, BUN 67, creatinine 9.3, glucose 107. ASSESSMENT: 1. Encephalopathy, which seems to be slowly improving. The exact etiology is not clear. 2. Chronic renal failure with extremely high BUN and creatinine at the time of admission. 3. Sinus bradycardia, which has resolved. PLAN: The patient is likely close to transfer to the floor. We will see how he does with dialysis. If he does not need dopamine with the dialysis today, then the central line can be pulled.
--- NOTE | 2018-05-25 10:39 | PDOC.PN ---
- Subjective Encounter Start Date: 05/25/18 Encounter Start Time: 10:38 Mr. Loo was seen today in follow-up of altered mental status. He is beginning to improve. He was able to tell me where he is, and he was able to give me the year, and month, he was a bit confused at first. - Objective Resuscitation Status: Resuscitation Status FULL:Full Resuscitation MAR Reviewed: Yes Vital Signs & Weight: Vital Signs (12 hours) Temp Pulse Resp Pulse Ox 05/25/18 08:00 98.2 F 05/25/18 07:57 97.9 F 75 12 93 L 05/25/18 04:00 97.9 F 05/25/18 00:00 98.1 F Weight Weight 187 lb 1.6 oz Most Recent Monitor Data Heart Rate from ECG 75 NIBP 124/56 NIBP BP-Mean 72 Respiration from ECG 10 SpO2 92 I&O: 05/24/18 05/25/18 05/26/18 06:59 06:59 06:59 Intake Total 323.4 1097.3 0 Output Total 0 0 Balance 323.4 1097.3 0 Result Diagrams: 05/25/18 03:24 05/25/18 03:24 Additional Labs: Accuchecks 05/24/18 05/24/18 05/24/18 20:25 17:48 12:27 POC Glucose 118 H 229 H 152 H Phys Exam - Physical Examination HEENT: PERRLA Respiratory: no wheezing, no rales, no rhonchi, clear to auscultation bilateral Cardiovascular: RRR, no significant murmur, no rub Gastrointestinal: soft, non-tender, positive bowel sounds Musculoskeletal: no edema Dx/Plan (1) Toxic metabolic encephalopathy Code(s): G92 - TOXIC ENCEPHALOPATHY Status: Acute (2) ESRD (end stage renal disease) on dialysis Code(s): N18.6 - END STAGE RENAL DISEASE; Z99.2 - DEPENDENCE ON RENAL DIALYSIS Status: Chronic Comment: On HD per nephrology. (3) Physical deconditioning Code(s): R53.81 - OTHER MALAISE Status: Chronic (4) Diabetes mellitus type 2 in nonobese Code(s): E11.9 - TYPE 2 DIABETES MELLITUS WITHOUT COMPLICATIONS Status: Chronic Comment: uncontrolled (5) Hypertension Code(s): I10 - ESSENTIAL (PRIMARY) HYPERTENSION Status: Chronic Qualifiers: Hypertension type: essential hypertension Qualified Code(s): I10 - Essential (primary) hypertension Comment: uncontrolled - Plan * Toxic Metabolic encephalopathy- ? etiology- this appears to be resolving * Echo results are pending * Awaiting a telemetry bed * ESRD- continue dialysis as indicated * HTN- blood pressure is stable * DM- blood glucose is stable.
[2018-05-25] MEDS: Aspirin 81 mg Enteric Coated Tablet PO SCH (12:45)
[2018-05-25] MEDS ORDERED: Albumin 5% 0 ML ONE (12:59)
[2018-05-25] MEDS: Atorvastatin Calcium 40 MG TAB PO SCH (20:39)
--- NOTE | 2018-05-25 20:42 | PRG ---
DATE OF SERVICE: 05/25/2018 SUBJECTIVE: Patient is seen and examined, seems to be doing much better noted with the following vit al signs. PHYSICAL EXAMINATION: VITAL SIGNS: Afebrile with temperature 98.4, pulse 77, respiratory rate 16, O2 saturation 97%, blood pressure 133/64. HEENT: Unremarkable. CARDIOVASCULAR: First and second heart sounds were heard. RESPIRATORY: Clear to auscultation. DIGESTIVE: Revealed a benign abdomen, positive bowel sounds. EXTREMITIES: No peripheral edema. SKIN: No new gross rash. LYMPHATICS: No peripheral lymphadenopathy. LABORATORY INVESTIGATIONS: Showed a hemoglobin of 9.8. Chemistry showed a creatinine of 9.26. IMPRESSION: 1. End-stage renal disease, hemodialysis dependent. 2. Mental status change, query cause. 3. Hypertension. 4. Diabetes mellitus. PLAN: 1. The patient to continue with hemodialysis per schedule. 2. Reduce frequency of blood draws to avoid iatrogenic anemia. 3. Further management to be dependent on the clinical course.
[2018-05-25] MEDS: HumaLOG 300 UNITS/3 ML VIAL SC PRN (21:48)
[2018-05-26] MEDS: Aspirin 81 mg Enteric Coated Tablet PO SCH (08:23)
--- NOTE | 2018-05-26 09:23 | CON ---
DATE OF CONSULTATION: 05/24/2018 REFERRING PHYSICIAN: Danielle Ontiveros M.D. REASON FOR CONSULTATION: Altered mental status. HISTORY OF PRESENT ILLNESS: Mr. Loo is a pleasant 57-year-old -[place] male who has been c onsidered for evaluation of . History is limited and will obtain primarily from the patient's dictated H&P note. He had presented to the hospital after he was not feeling well over the past 1-2 days. He had an episode of passing out, followed by confusion. He does not remember the exact detai ls of the event that took place and thus he had gone to outside emergency room, where he was evaluate d and transferred over to [facility] for further evaluation. PAST MEDICAL HISTORY, PAST SURGICAL HISTORY, SOCIAL HISTORY, FAMILY HISTORY, CURRENT MEDICATIONS, ALL ERGIES: Reviewed, refer to dictated H and P note done by Dr. Danielle Ontiveros. REVIEW OF SYSTEMS: Unable to perform. PHYSICAL EXAMINATION: VITAL SIGNS: Blood pressure 104/50, pulse of 58, respirations of 21 on BiPAP, temperature of 97.5. GENERAL: Well-developed, well-nourished -[place] male resting in bed in no apparent distress . RESPIRATORY: Clear to auscultation bilaterally. CARDIOVASCULAR: Regular rate and rhythm. NEUROLOGIC: Mental status: The patient is awake, alert, oriented x1. He is able to follow some sim ple commands. Speech and language: Unable to evaluate, as he is on BiPAP machine. Cranial nerves: Pupils are 3 mm and reactive. Visual prater are full to threat. Extraocular muscles are intact. M otor exam showed normal tone and bulk with 5/5 strength in both upper and lower extremities. [place] i: Plantar responses equivocal bilaterally. Deep tendon reflexes 1+ reflexes in both upper extremit ies and absent in both lower extremities. LABORATORY DATA: Reviewed, which included CBC, BMP, lipid profile, plasma alcohol level, coag panel, and ABG which is significant for hemoglobin of 10.4, hematocrit 31.1, platelet count of 108. PT of 16.2, INR 1.3, PTT of 36.7. Sodium 128, potassium 5.3, BUN 68, creatinine of 10.9, troponin of 0.283 . ABG showing pH of 7.31. Bicarbonate of 14.5, pCO2 of 29.2, pO2 of 98.2, otherwise unremarkable. IMAGING STUDIES: MRI brain without contrast was reviewed, which showed no acute intracranial abnorma lity. IMPRESSION: 1. Altered mental status, likely toxic metabolic encephalopathy. 2. Metabolic acidosis. 3. Hyponatremia. Mr. Loo is a pleasant 57-year-old -[place] male with multiple medical problems who presente d to ER for altered mental status. This is likely secondary to toxic metabolic encephalpathy. At th is time, I would recommend continuing current medical management. No further neurological workup nee ded from my standpoint. Thank you for consultation.
--- NOTE | 2018-05-26 10:06 | PRG ---
DATE OF SERVICE: 05/26/2018 SUBJECTIVE: Mr. Loo was transferred out to the floor yesterday. Does not appear to be clinically changed. PHYSICAL EXAMINATION: VITAL SIGNS: Temperature is 97.9, pulse 87, respirations 18, O2 sat 94% on room air, blood pressure 117/56. HEENT: Unremarkable. NECK: No JVD. CHEST: Clear. CARDIAC: S1 and S2 regular. ABDOMEN: Soft. EXTREMITIES: No edema. ASSESSMENT: Status post mental status changes likely related to hypotension and sinus bradycardia. PLAN: The patient is continued on medical management for his renal failure. No active pulmonary iss ues. I will sign off. Please recall if further assistance needed.
--- NOTE | 2018-05-26 11:08 | PDOC.PN ---
- Subjective Encounter Start Date: 05/26/18 Encounter Start Time: 11:05 Mr. Loo was seen today in follow-up of altered mental status/ He does not have any complaints, but says he can not talk, and that his voice is not right. He aslo is asking what happened to him, and why he couldn't see things when he was in dialysis on admission, but could hear people all around him. While we are talking he also mentions more new complaints. such as his hands are not working properly. ( I spoke with him yesterday, and his voice was clear). - Objective Resuscitation Status: Resuscitation Status FULL:Full Resuscitation MAR Reviewed: Yes Vital Signs & Weight: Vital Signs (12 hours) Temp Pulse Resp BP Pulse Ox 05/26/18 08:25 97.9 F 77 18 117/56 L 94 L 05/26/18 04:00 98.1 F 76 16 144/77 H 96 Weight Weight 188 lb 4.8 oz Most Recent Monitor Data Heart Rate from ECG 79 NIBP 131/62 NIBP BP-Mean 92 Respiration from ECG 16 SpO2 93 I&O: 05/25/18 05/26/18 05/27/18 06:59 06:59 06:59 Intake Total 1097.3 480 Output Total 0 0 Balance 1097.3 480 Result Diagrams: 05/25/18 03:24 05/25/18 03:24 Additional Labs: Accuchecks 05/26/18 05/25/18 05/25/18 06:01 21:15 17:06 POC Glucose 132 H 262 H 243 H 05/25/18 12:42 POC Glucose 105 Phys Exam - Physical Examination HEENT: PERRLA Respiratory: no wheezing, no rales, no rhonchi, clear to auscultation bilateral Cardiovascular: RRR, no significant murmur, no rub Gastrointestinal: soft, non-tender, positive bowel sounds Musculoskeletal: no edema Neurological: non-focal Dx/Plan (1) Toxic metabolic encephalopathy Code(s): G92 - TOXIC ENCEPHALOPATHY Status: Acute (2) ESRD (end stage renal disease) on dialysis Code(s): N18.6 - END STAGE RENAL DISEASE; Z99.2 - DEPENDENCE ON RENAL DIALYSIS Status: Chronic Comment: On HD per nephrology. (3) Physical deconditioning Code(s): R53.81 - OTHER MALAISE Status: Chronic (4) Diabetes mellitus type 2 in nonobese Code(s): E11.9 - TYPE 2 DIABETES MELLITUS WITHOUT COMPLICATIONS Status: Chronic Comment: uncontrolled (5) Hypertension Code(s): I10 - ESSENTIAL (PRIMARY) HYPERTENSION Status: Chronic Qualifiers: Hypertension type: essential hypertension Qualified Code(s): I10 - Essential (primary) hypertension Comment: uncontrolled - Plan * Toxic Metabolic encephalopathy- ? etiology- with slurred speech now ( this actually comes and goes, his MRI was negative- no evidence of infection (? supratentorial). * ESRD- stable * HTN- blood pressure is stable * DM- blood glucose is stable * I suspect he will be stable for discharge tomorrow
[2018-05-26] MEDS: HumaLOG 300 UNITS/3 ML VIAL SC PRN (11:40)
--- NOTE | 2018-05-26 18:00 | PRG ---
DATE OF SERVICE: 05/26/2018 The patient was seen and examined, seems to be doing much better. PHYSICAL EXAMINATION: VITAL SIGNS: Afebrile, temperature 97.9, pulse 73, respiratory rate of 20, O2 sat 95% with a blood p ressure 147/76. HEENT: Unremarkable. Moist oral mucosa. NECK: Supple, No conjunctival injection or icterus. CARDIOVASCULAR: First and second heart sounds were heard. RESPIRATORY: Clear to auscultation. DIGESTIVE SYSTEM: Revealed a benign abdomen with positive bowel sounds. EXTREMITIES: No peripheral edema. NEUROLOGIC: The patient still does have some degree of expressive aphasia. Otherwise, unremarkable. IMPRESSION: 1. End-stage renal disease, hemodialysis dependent Wednesday, Wednesday, and Wednesday. 2. Mental status change, query cause. 3. History of recent cerebrovascular accident. PLAN: 1. The patient to continue with hemodialysis per his schedule. 2. Further management to be dependent on the clinical course.
[2018-05-26] MEDS: Atorvastatin Calcium 40 MG TAB PO SCH (20:44)
--- NOTE | 2018-05-27 11:20 | PDOC.PN ---
- Subjective Encounter Start Date: 05/27/18 Encounter Start Time: :18 Mr. Loo was seen today in follow-up of altered mental status. I saw the patient in dialysis. Before he realized I entered the room I heard him clearly yell out to the nurse " Why is it so cold in here". When he saw me approach, his voice became slurred again. He told me he had no complaints overnight. - Objective Resuscitation Status: Resuscitation Status FULL:Full Resuscitation MAR Reviewed: Yes Vital Signs & Weight: Vital Signs (12 hours) Temp Pulse Resp BP Pulse Ox 05/27/18 03:17 98.1 F 71 16 164/89 H 95 Weight Weight 190 lb 8 oz Most Recent Monitor Data Heart Rate from ECG 79 NIBP 131/62 NIBP BP-Mean 92 Respiration from ECG 16 SpO2 93 I&O: 05/26/18 05/27/18 05/28/18 06:59 06:59 06:59 Intake Total 480 698 Output Total 0 0 Balance 480 698 Result Diagrams: 05/25/18 03:24 05/25/18 03:24 Additional Labs: Accuchecks 05/27/18 05/26/18 05/26/18 05:53 20:34 17:15 POC Glucose 113 H 133 H 88 05/26/18 10:52 POC Glucose 215 H Phys Exam - Physical Examination HEENT: PERRLA Respiratory: no wheezing, no rales, no rhonchi Cardiovascular: RRR, no significant murmur, no rub Gastrointestinal: soft, non-tender, positive bowel sounds Musculoskeletal: no edema Dx/Plan (1) Toxic metabolic encephalopathy Code(s): G92 - TOXIC ENCEPHALOPATHY Status: Acute (2) ESRD (end stage renal disease) on dialysis Code(s): N18.6 - END STAGE RENAL DISEASE; Z99.2 - DEPENDENCE ON RENAL DIALYSIS Status: Chronic Comment: On HD per nephrology. (3) Physical deconditioning Code(s): R53.81 - OTHER MALAISE Status: Chronic (4) Diabetes mellitus type 2 in nonobese Code(s): E11.9 - TYPE 2 DIABETES MELLITUS WITHOUT COMPLICATIONS Status: Chronic Comment: uncontrolled (5) Hypertension Code(s): I10 - ESSENTIAL (PRIMARY) HYPERTENSION Status: Chronic Qualifiers: Hypertension type: essential hypertension Qualified Code(s): I10 - Essential (primary) hypertension Comment: uncontrolled - Plan * Toxic Metabolic Encephalopathy- resolved * HTN- blood pressure is a bit elevated, but he has not been re-started on all of his antihypertensives- at discharge may lower the dose of Minoxidil, or use as needed only , as it is suspected that the encephalopathy may have in part be due to hypotension * ESRD- stable * He is stable for discharge home after dialysis.
[2018-05-27] MEDS: Aspirin 81 mg Enteric Coated Tablet PO SCH (11:51)
[2018-05-27 15:32] VITALS: BP 125/60; TEMP 98.9
--- NOTE | 2018-05-27 19:08 | DIS ---
DATE OF ADMISSION: 05/22/2018 DATE OF DISCHARGE: 05/27/2018 PRIMARY CARE PHYSICIAN: Bess Brewer MD DISCHARGE DISPOSITION: Home. PRIMARY DISCHARGE DIAGNOSES: 1. Toxic-metabolic encephalopathy. 2. Hypotension. 3. End-stage renal disease, on hemodialysis. 4. Diabetes mellitus. 5. Chronic diastolic heart failure. 6. Hypertension. 7. Hyperlipidemia. DISCHARGE MEDICATIONS: Please note that the patient was taken off minoxidil and this can be changed to p.r.n. due to low blood pressure. He is to continue pantoprazole 40 mg daily; Lipitor 40 mg at be dtime; aspirin 81 mg daily; trazodone 50 mg as needed; simethicone 80 mg t.i.d.; MiraLax 17 grams karen ly; Theragran once a day; loperamide 2 mg daily; lactulose 20 grams twice a day as needed; regular in sulin on sliding scale basis; 70/30, 15 units twice a day; hydralazine 25 mg twice daily; guaifenesin 10 mL q.4 hours as needed; docusate sodium 100 mg twice a day; calcium carbonate 1000 mg q.i.d. as n eeded; Tylenol No. 3 one to two tablets q.4 hours as needed; and Tylenol. PROCEDURES DONE DURING ADMISSION: The patient had a CT scan of the brain, which was negative for any acute intracranial process. The patient also had an MRI of the brain, which was negative for any ac momo intracranial process. CODE STATUS: FULL CODE. ALLERGIES: No known drug allergies. HOSPITAL COURSE: Mr. Loo is a pleasant 57-year-old gentleman, who was brought to the hospital with slurred speech and altered mental status. It was originally concerned that he may have suffered a s troke. CT scan was done, which was negative. An MRI was done the following day, which was also nega tive. Given that he is a dialysis patient, he was cultured to rule out infection as a potential caus e. Two sets of blood cultures were negative. There was no evidence of any pneumonia by chest x-ray and it is suspected that he may have had some degree of change in his mentation due to some hypotensi on. His blood pressure was in the low 100s, which may be lower than his usual and it was also notabl e that the patient's slurred speech which seemed to be more or less variable, as at times his speech was very clear and at one time I encountered the patient before he realized I was there, he was clear ly yelling out to the nurse asking her "why is the room so cold." It was very clear and audible. Wh en he realized I was in the room, his speech became slurred again. The patient is stable for dischar and can be discharged home and see his primary care physician in 1-2 weeks.
== END 2018-05-27 17:19 | disposition home or self-care (01) | DRG 91 ==
LOC: ERS 15:49 → 2NO 19:24 → CCU 05-23 17:03 → 2NO 05-25 13:52
PROVIDERS: ADMIT Hospitalist; ATTEND Hospitalist
PROC: 5A1D70Z Performance of Urinary Filtration, Intermittent, Less than 6 Hours Per Day (ICD-10-PCS; principal; 2018-05-23)
PROC: 06HN33Z Insertion of Infusion Device into Left Femoral Vein, Percutaneous Approach (ICD-10-PCS; 2018-05-23)
PROC: 3E033XZ Introduction of Vasopressor into Peripheral Vein, Percutaneous Approach (ICD-10-PCS; 2018-05-23)
DX: G92 Toxic encephalopathy (principal); N18.6 End stage renal disease; I21.A1 Myocardial infarction type 2; E87.2 Acidosis; I95.9 Hypotension, unspecified; I69.354 Hemiplegia and hemiparesis following cerebral infarction affecting left non-dominant side; E87.1 Hypo-osmolality and hyponatremia; I13.2 Hypertensive heart and chronic kidney disease with heart failure and with stage 5 chronic kidney disease, or end stage renal disease; I50.32 Chronic diastolic (congestive) heart failure; B18.1 Chronic viral hepatitis B without delta-agent; Z99.2 Dependence on renal dialysis; D63.1 Anemia in chronic kidney disease; E11.65 Type 2 diabetes mellitus with hyperglycemia; I25.2 Old myocardial infarction; R00.1 Bradycardia, unspecified; E78.5 Hyperlipidemia, unspecified; E11.22 Type 2 diabetes mellitus with diabetic chronic kidney disease; B18.2 Chronic viral hepatitis C; E87.5 Hyperkalemia; Z85.038 Personal history of other malignant neoplasm of large intestine; Z79.4 Long term (current) use of insulin; Z79.82 Long term (current) use of aspirin
CPT/HCPCS: 36415; 36416; 51701; 70450; 70551; 71045; 80048; 80053; 80061; 80307; 82140; 82553; 82805; 83605; 84484; 85025; 85610; 85730; 87040; 90935; 93005; 93306; 94660; 96360; 96372; A4216; G0257; G8978-GP-CJ; G8979-GP-CI; G8996-GN-CI; G8997-GN-CI; J1650; J2310; J7050; J7070; P9045

== ENCOUNTER 2018-06-27 12:35 | Inpatient (IN) | payer MEDICAID, OTHER ==
--- NOTE | 2018-06-27 13:58 | RAD ---
PORTABLE AP CHEST RADIOGRAPH: Date: 06-27-18 History: Altered mental status. Comparison: 05-22-18 FINDINGS: Cardiac silhouette is magnified by projection but stable in size. There is patchy parenchymal opacity seen within the right midlung zone which may be related to developing pneumonia. The left lung is cl ear. Pulmonary vasculature is at the upper limits of normal. Degenerative changes are seen in the spi ne. Vascular calcification in the thoracic aorta. No other interval change. IMPRESSION: Interval development of patchy parenchymal opacity in the right midlung zone which may be related to developing pneumonia. Follow up to complete resolution is recommended. POS: [facility]
[2018-06-27 14:02] LABS: #Basophils 0.1 thou/uL (0.0-0.2); #Eosinphils 0.3 thou/uL (0.0-0.7); #Lymphocytes 1.3 thou/uL (1.20-3.40); #Monocytes 0.7 thou/uL (0.11-0.59); #Neutrophils 5.1 thou/uL (1.40-6.50); %Basophils 0.8 % (0.0-1.0); %Eosinophils 4.1 % (0.0-10.0); %Lymphocytes 17.4 % (21.0-51.0); %Monocytes 9.8 % (0.0-10.0); %Neutrophils 67.9 % (42.0-75.0); Hemoglobin 11.9 g/dL (14.0-18.0); Mean Corpuscular HGB CONC 30.7 g/dL (32.0-36.0); Mean Corpuscular Hemoglobin 26.5 pg (27.0-31.0); Mean Corpuscular Volume 86.2 fL (78.0-98.0); Mean Platelet Volume 9.5 fL (7.4-10.4); Platelet Count 171 thou/uL (130-400); RBC Distribution Width 13.6 % (11.5-14.5); Red Blood Cell (RBC) Count 4.48 mill/uL (4.70-6.10); White Blood Cell (WBC) Count 7.6 thou/uL (4.8-10.8)
--- NOTE | 2018-06-27 14:17 | CT ---
NONCONTRAST CT HEAD: Date: 06/27/18 HISTORY: Altered mental status. COMPARISON: 05/22/18. FINDINGS: There is decreased attenuation seen in the periventricular white matter, similar to the prior study a nd nonspecific, but likely attributable to chronic small vessel ischemic changes. There is decreased attenuation of the left chelsey, less prominent on the prior study, but also may be related to prior inf arction and/or chronic small vessel ischemic changes. There is also a stable area of diminished atten uation in the right aspect of the mid brain, likely attributable to remote infarction. There is no ev idence of an acute cortical infarction, hemorrhage, mass effect, or midline shift. The ventricular sy stem is normal in size, shape, and position for the degree of sulcal atrophy. There is mild cerebral volume loss not unexpected for the patient's age. Visualized paranasal sinuses and mastoid air cells are clear. There has been no significant interval change when compared to the prior exam. IMPRESSION: 1. No acute intracranial abnormalities demonstrated. 2. Remote infarctions involving the brainstem, which were also present on prior study. 3. Chronic small vessel ischemic changes, stable from prior study. POS: [facility]
[2018-06-27 14:18] LABS: Bilirubin Negative (Negative); Blood, Urine Trace (Negative); Clarity CLEAR (Clear); Glucose, Urine (Dipstick) 100 mg/dL (Negative); Leukocyte Trace (Negative); Nitrite Negative (Negative); Protein, Urine (Dipstick) 100 mg/dL (Neg-Trace); Urobilinogen 0.2 mg/dL (0.2-1.0)
[2018-06-27 14:20] LABS: Bacteria/HPF None Seen HPF (None Seen); Hyaline Casts/LPF 4-6 HYALINE CAST LPF (0-3 Hyaline); Pathc Cast-AUWi Flag 0.72 (0-2.49)
[2018-06-27 14:28] LABS: ALT (SGPT) 8 U/L (8-55); AST (SGOT) 15 U/L (5-34); Albumin 3.4 g/dL (3.5-5.0); Alkaline Phosphatase 95 U/L (40-150); Anion Gap 17 mmol/L (10-20); BUN (Urea Nitrogen) 45 mg/dL (8.4-25.7); CK (CPK) 181 U/L (30-200); Calc. Creatinine Clearance 0 mL/min (70-130); Calcium 8.8 mg/dL (7.8-10.44); Carbon Dioxide 24 mmol/L (22-29); Chloride 95 mmol/L (98-107); Estimated GFR-MDRD 7; Glucose 129 mg/dL (70-105); Magnesium 2.6 mg/dL (1.6-2.6); Potassium 4.4 mmol/L (3.5-5.1); Protein, Total 7.4 g/dL (6.0-8.3); Sodium 132 mmol/L (136-145)
[2018-06-27 14:31] LABS: Troponin I 0.047 ng/mL (< 0.028)
[2018-06-27 14:41] LABS: Squamous Epithelial 0-3 HPF (0-3); Transitional Epithelial 0-3 HPF (0-3)
[2018-06-27] MEDS ORDERED: Piperacillin/Tazobactam 4.5 GM VIAL ONE (15:47)
[2018-06-27] MEDS ORDERED: Sodium Chloride 0.9% 100 ML ONE (15:47)
[2018-06-27] MEDS ORDERED: Dextrose 50% Abboject 50 ML SYRINGE SLOW IVP PRN (16:57)
[2018-06-27] MEDS ORDERED: Acetaminophen 650 MG Suppository PR PRN (16:57)
[2018-06-27] MEDS ORDERED: Acetaminophen 325 MG TAB PO PRN (16:57)
[2018-06-27] MEDS ORDERED: Minoxidil 10 MG TAB PO PRN (16:57)
[2018-06-27] MEDS ORDERED: Dextrose 5% in Water 1,000 ML IV PRN (16:57)
[2018-06-27] MEDS ORDERED: HumaLOG 300 UNITS/3 ML VIAL SC PRN ×2 (16:57)
[2018-06-27] MEDS ORDERED: Guaifenesin DM 100-10/5 ML UDCUP PO PRN (16:57)
--- NOTE | 2018-06-27 17:53 | MRI ---
MRI BRAIN WITHOUT CONTRAST: HISTORY: Lethargy. Evaluate for stroke. COMPARISON: 05/23/2018 and 03/02/2018 TECHNIQUE: Multiplanar, multisequence MR images were obtained of the brain without contrast. FINDINGS: There are scattered foci of high T2/FLAIR signal in the subcortical and periventricular white matter, likely secondary to small vessel ischemic disease. No restricted diffusion is seen to suggest an ac momo infarction. There is a stable area high FLAIR signal at the right aspect of the chelsey, which like ly represents encephalomalacia from a remote infarction. This is stable compared to the prior examin ations. There is no evidence of hydrocephalus, intracranial hemorrhage, or extraaxial fluid collection. The expected flow voids are seen at the skull base. The corpus callosum, pituitary, and craniocervical junction are unremarkable. The calvarium and overlying soft tissues are unremarkable. The visualized paranasal sinuses and mast oid air cells are well aerated. IMPRESSION: Small vessel ischemic disease without acute intracranial abnormality. POS: [facility]
[2018-06-27] MEDS ORDERED: Cefepime 1 GM in Sodium Chloride 0.9% 100 ML IVPB SCH ×2 (18:00→22:00)
[2018-06-27] MEDS: hydrALAZINE 25 MG TAB PO SCH (21:16)
[2018-06-27] MEDS: Atorvastatin Calcium 40 MG TAB PO SCH (21:16)
[2018-06-27] MEDS: Docusate 100 MG CAP PO SCH (21:16)
[2018-06-27] MEDS: Heparin 5,000 UNITS/ML VIAL SC SCH (21:16)
[2018-06-28 00:05] VITALS: BMI 25.9
--- NOTE | 2018-06-28 00:27 | CON ---
REASON FOR CONSULTATION: 06/27/2018 CONSULTING PHYSICIAN: Abe Martinez M.D. REQUESTING PHYSICIAN: ER physician. REASON FOR CONSULTATION: The need for maintenance hemodialysis. IMPRESSION: 1. End-stage renal disease, hemodialysis dependent Wednesday, Wednesday, and Wednesday. 2. Pneumonia, likely aspiration pneumonia. PLAN: There is no emergent indication for hemodialysis today; therefore, we will defer the treatment of this patient to tomorrow with ultrafiltration as tolerated by hemodynamics. HISTORY OF PRESENT ILLNESS: History is that a 57-year-old gentleman with end-stage renal disease, he modialysis dependent, who presented here with mental status change noted as per imaging studies to [place] ve what has been described as possible right-sided pneumonia. The patient does have some degree of s wallowing difficulties in the context of recent CVA, may have predisposed this patient to recurrent a spiration. The need for maintenance hemodialysis is necessitated this consultation. PAST MEDICAL HISTORY: Significant for end-stage renal disease, hemodialysis dependent, congestive he art failure, dyslipidemia, hepatitis B. MEDICATIONS: Reviewed and as documented on [employer]. FAMILY HISTORY: Not significantly related to presenting illness. SOCIAL HISTORY: The patient denies alcohol, tobacco or illicit drug use. REVIEW OF SYSTEMS: As documented in the body of the history, otherwise the other systems were review ed and found not to be significantly related to presenting illness. LABORATORY INVESTIGATION: Showed hemoglobin of 11.9. Chemistry showed a potassium of 4.4, BUN of 44 with a creatinine of 8.97. PHYSICAL EXAMINATION: GENERAL: The patient was found not to be in any obvious distress, hemodynamically stable, somewhat h ypotensive with systolic blood pressure in the 176-109. HEENT: Unremarkable. CARDIOVASCULAR SYSTEM: First and second heart sounds were heard. RESPIRATORY SYSTEM: Clear to auscultation. DIGESTIVE SYSTEM: Revealed a benign abdomen with positive bowel sounds. EXTREMITIES: No peripheral edema. SKIN: No new gross rash. LYMPHATICS: No peripheral lymphadenopathy. SUMMARY: A 57-year-old gentleman with end-stage renal disease, hemodialysis dependent, who presented here with pneumonia. Thank you for this consultation. We will follow with you.
--- NOTE | 2018-06-28 01:23 | HP ---
REASON FOR ADMISSION: Altered mental state/acute encephalopathy, right middle lobe pneumonia, volume overload. HISTORY OF PRESENT ILLNESS: The patient gives history of not feeling well from last 2 days or so. Clay olivares has had stomach upset and states he vomited nearly 3-4 times yesterday. He lives at [facility]. As patient progressively got more altered, they transferred him to the emergency room. Th e patient did not go for his scheduled hemodialysis today. The patient also mentions that he chokes at times. He has had a prior history of stroke as well. Currently in the ER, patient is lethargic, but responds well to verbal questioning. PAST MEDICAL AND SURGICAL HISTORY: End-stage renal disease on hemodialysis, history of severe concen tric LVH, history of colon cancer with prior surgery, history of cerebrovascular accident, diabetes m ellitus type 2, dyslipidemia, cholecystectomy, upper endoscopies, right upper extremity, dialysis acc ess procedures. PERSONAL HISTORY: Does not abuse alcohol or drugs. Has had prior history of substance abuse, none a t present as he is staying in a alf. Multiple family members have high blood pressure. CURRENT MEDICATIONS: Patient is on Tylenol with Codeine #3 q.6 hourly p.r.n., clonidine 0.1 mg p.o. q.6 hourly p.r.n., Colace 100 mg twice daily, hydralazine 25 mg twice daily, 70/30 insulin 15 units s ubcu twice daily, Humulin R with coverage, multivitamin 1 tab once daily, MiraLax 17 grams daily, tra zodone 50 mg p.o. daily, aspirin 81 mg p.o. daily, atorvastatin 40 mg p.o. at bedtime, minoxidil 10 m g p.o. daily, Protonix 40 mg p.o. daily. ALLERGIES: No known drug allergies. REVIEW OF SYSTEMS: The following complete review of systems was negative, unless otherwise mentioned in the HPI or below: Constitutional: Weight loss or gain, ability to conduct usual activities. Skin: Rash, itching. Eyes: Double vision, pain. ENT/Mouth: Nose bleeding, neck stiffness, pain, tenderness. Cardiovascular: Palpitations, dyspnea on exertion, orthopnea. Respiratory: Shortness of breath, wheezing, cough, hemoptysis, fever or night sweats. Gastrointestinal: Poor appetite, abdominal pain, heartburn, nausea, vomiting, constipation, or diarr hea. Genitourinary: Urgency, frequency, dysuria, nocturia. Musculoskeletal: Pain, swelling. Neurologic/Psychiatric: Anxiety, depression. Allergy/Immunologic: Skin rash, bleeding tendency. CODE STATUS: FULL CODE. I have discussed this with patient at bedside. Power of patent prosecution attorney is his si ster, Ms. Hoonrio Kruse, number to reach her is [phone] per patient. PHYSICAL EXAMINATION: GENERAL: The patient is a 57-year-old male who is lethargic, but oriented now. On arrival, was more obtunded per ER physician. VITAL SIGNS: Blood pressure 170/99, pulse 86 per minute, respiratory rate 18 per minute, temperature 97.8 degrees Fahrenheit, saturating 96% on room air. NECK: Supple, no elevated JVD. EYES: Extraocular muscles intact. Pupils reacting to light. ORAL CAVITY: Mucous membranes are dry. No exudates or congestion. CARDIOVASCULAR SYSTEM: S1, S2 heard. Loud S2. RESPIRATORY SYSTEM: Air entry 1+ bilateral. Scattered rhonchi plus bilateral. ABDOMEN: Soft, bowel sounds heard. No tenderness, rigidity or guarding. EXTREMITIES: No peripheral edema or calf tenderness. VASCULAR SYSTEM: Peripheral pulses 1+ bilateral, no ischemic ulcerations or gangrene. CENTRAL NERVOUS SYSTEM: Patient is lethargic, but moves all 4 extremities with no focal deficits. P atient's speech is little dragged out. PSYCHIATRIC SYSTEM: No obvious hallucinations or delusions at present. LABORATORY DATA AND IMAGING DATA: White count of 7.6, hemoglobin and hematocrit 11 and 38, platelet count 171, MCV is 86 with 67% neutrophils. Sodium 132, serum bicarbonate 24, BUN 45, creatinine 8.9, serum glucose 129. AST, ALT, alkaline phosphatase is within normal limits. Albumin is 3.4, BNP 426 , troponin I 0.04. CT brain done showed no acute intracranial abnormalities. He has had remote infa rcts in the brain stem, which were also present on prior study. MRI brain was also done which showed small vessel ischemic change without acute intracranial abnormality. Has old encephalomalacia with remote infarct in the right aspect of [place]. Chest x-ray done shows right middle lobe infiltrate. CLINICAL IMPRESSION AND PLAN: Patient will be under observation on medical floor for acute encephalo olive, right lung pneumonia, volume overload as he missed his dialysis today. We will place him on c efepime and Levaquin for now. Dr. Fish has been consulted from the ER and likely patient will have his hemodialysis. We will also consult speech therapy to rule out aspiration. His encephalopat hy is slowly resolving. MRI does not reveal any acute infarct. We will continue his aspirin, Lipito r, hydralazine, 70/30 insulin, minoxidil, Protonix for now. Trazodone will be held in view of his ac squaxin encephalopathy at present. Blood and urine cultures have been obtained in the ER. Likely, tyrone nesbitt will be transitioned to Levaquin if he is stable in the morning back to his alf. If jonah ent were to decompensate, he will be switched over to inpatient status. I have discussed code status with him and he is a FULL CODE.
[2018-06-28 04:30] LABS: #Basophils 0.1 thou/uL (0.0-0.2); #Eosinphils 0.4 thou/uL (0.0-0.7); #Monocytes 0.9 thou/uL (0.11-0.59); #Neutrophils 6.9 thou/uL (1.40-6.50); %Basophils 0.6 % (0.0-1.0); %Eosinophils 4.5 % (0.0-10.0); %Lymphocytes 10.7 % (21.0-51.0); %Monocytes 9.3 % (0.0-10.0); %Neutrophils 74.8 % (42.0-75.0); Hemoglobin 12.5 g/dL (14.0-18.0); Mean Corpuscular HGB CONC 33.2 g/dL (32.0-36.0); Mean Corpuscular Volume 84.4 fL (78.0-98.0); Mean Platelet Volume 9.4 fL (7.4-10.4); Platelet Count 168 thou/uL (130-400); RBC Distribution Width 13.4 % (11.5-14.5); Red Blood Cell (RBC) Count 4.48 mill/uL (4.70-6.10); White Blood Cell (WBC) Count 9.3 thou/uL (4.8-10.8)
[2018-06-28 04:50] LABS: Anion Gap 19 mmol/L (10-20); BUN (Urea Nitrogen) 52 mg/dL (8.4-25.7); Calc. Creatinine Clearance 11 mL/min (70-130); Calcium 8.8 mg/dL (7.8-10.44); Carbon Dioxide 24 mmol/L (22-29); Chloride 95 mmol/L (98-107); Estimated GFR-MDRD 7; Glucose 107 mg/dL (70-105); Potassium 4.5 mmol/L (3.5-5.1); Sodium 133 mmol/L (136-145)
[2018-06-28] MEDS ORDERED: traZODone HCl 50 MG TAB PO SCH (09:00)
[2018-06-28] MEDS ORDERED: Carvedilol 25 MG TAB PO SCH (11:15)
[2018-06-28] MEDS: Insulin NPH/Reg Insulin Hm 300 UNITS/3 ML VIAL SC SCH ×2 (11:27→18:36)
[2018-06-28] MEDS: hydrALAZINE 25 MG TAB PO SCH ×2 (11:28→20:55)
[2018-06-28] MEDS: Polyethylene Glycol 3350 17 GM Packet PO SCH (11:28)
[2018-06-28] MEDS: Docusate 100 MG CAP PO SCH ×2 (11:28→20:57)
[2018-06-28] MEDS: Multivit, Therapeutic 1 TAB PO SCH (11:28)
[2018-06-28] MEDS: Heparin 5,000 UNITS/ML VIAL SC SCH ×3 (11:28→20:57)
[2018-06-28] MEDS: Aspirin 81 mg Enteric Coated Tablet PO SCH (11:28)
--- NOTE | 2018-06-28 15:06 | PDOC.PN ---
- Subjective Encounter Start Date: 06/28/18 Encounter Start Time: 08:45 Subjective: is getting HD, no sob -: responds to verbal questions - Objective Resuscitation Status: Resuscitation Status FULL:Full Resuscitation MAR Reviewed: Yes Vital Signs & Weight: Vital Signs (12 hours) Temp Pulse Resp BP BP Pulse Ox 06/28/18 13:20 97.7 F 97 20 124/75 96 06/28/18 13:15 97.7 F 97 20 124/75 96 06/28/18 11:28 91 06/28/18 04:00 98.2 F 91 20 176/102 H 93 L Weight Weight 186 lb 6 oz Result Diagrams: 06/28/18 03:50 06/28/18 03:50 Additional Labs: Accuchecks 06/28/18 06/28/18 06/27/18 13:20 05:38 21:08 POC Glucose 76 108 134 H Phys Exam - Physical Examination HEENT: PERRLA, sclera anicteric Neck: no JVD, supple Respiratory: no wheezing, no rales Cardiovascular: RRR, no significant murmur Gastrointestinal: soft, no distention, positive bowel sounds Musculoskeletal: pulses present, edema present Neurological: non-focal, moves all 4 limbs Dx/Plan (1) PNA (pneumonia) Code(s): J18.9 - PNEUMONIA, UNSPECIFIED ORGANISM Status: Acute Qualifiers: Pneumonia type: aspiration pneumonia Laterality: right Lung location: middle lobe of lung (2) Metabolic encephalopathy Code(s): G93.41 - METABOLIC ENCEPHALOPATHY Status: Acute (3) Acute on chronic diastolic CHF (congestive heart failure) Code(s): I50.33 - ACUTE ON CHRONIC DIASTOLIC (CONGESTIVE) HEART FAILURE Status : Acute Comment: AHA class C (4) Fluid overload Code(s): E87.70 - FLUID OVERLOAD, UNSPECIFIED Status: Acute (5) Coronary artery disease Code(s): I25.10 - ATHSCL HEART DISEASE OF [place] CORONARY ARTERY W/O ANG PCTRS Status: Chronic Qualifiers: Coronary Disease-Associated Artery/Lesion type: [place] artery [place] vs. transplanted heart: [place] heart Associated angina: without angina Qualified Code(s): I25.10 - Atherosclerotic heart disease of [place] coronary artery without angina pectoris (6) ESRD (end stage renal disease) on dialysis Code(s): N18.6 - END STAGE RENAL DISEASE; Z99.2 - DEPENDENCE ON RENAL DIALYSIS Status: Chronic Comment: On HD per nephrology. (7) Hypertension Code(s): I10 - ESSENTIAL (PRIMARY) HYPERTENSION Status: Chronic Qualifiers: Hypertension type: essential hypertension (8) Physical deconditioning Code(s): R53.81 - OTHER MALAISE Status: Chronic (9) Adenocarcinoma, colon Code(s): C18.9 - MALIGNANT NEOPLASM OF COLON, UNSPECIFIED Status: Resolved Comment: h/o left hemicolectomy for adenoCA - Plan no evidence of cva -: for volume removal with HD today -: switch to inpatient status -: on cefepime and levaquin -: dc plan in 36hrs, nebs, speech eval to r/o aspiration * . Review of Systems - Medications/Allergies Allergies/Adverse Reactions: Allergies Allergy/AdvReac Type Severity Reaction Status Date / Time No Known Allergies Allergy Verified 06/28/18 00:38 Medications: Current Medications Acetaminophen (Tylenol) 650 mg PO Q4H PRN PRN Reason: Headache/Fever or Pain Acetaminophen (Tylenol) 650 mg [place] Q4H PRN PRN Reason: Headache/Fever or Pain Aspirin (Ecotrin) 81 mg PO DAILY [facility] Last Admin: 06/28/18 11:28 Dose: Not Given Atorvastatin Calcium (Lipitor) 40 mg PO HS [facility] Last Admin: 06/27/18 21:16 Dose: 40 mg Dextrose/Water (Dextrose 50%) 25 gm SLOW IVP PRN PRN PRN Reason: Hypoglycemia Docusate Sodium (Colace) 100 mg PO BID [facility] Last Admin: 06/28/18 11:28 Dose: Not Given Glucagon (Glucagon) 1 mg IM PRN PRN PRN Reason: Hypoglycemia Guaifenesin/Dextromethorphan (Robitussin Dm) 15 ml PO Q4H PRN PRN Reason: Cough Heparin Sodium (Porcine) (Heparin) 5,000 units SC TID [facility] Last Admin: 06/28/18 11:28 Dose: Not Given Hydralazine HCl (Apresoline) 25 mg PO BID [facility] Last Admin: 06/28/18 11:28 Dose: Not Given Dextrose/Water (D5w) 1,000 mls @ 0 mls/hr IV .Q0M PRN PRN Reason: Hypoglycemia Levofloxacin 250 mg/ Device 50 mls @ 100 mls/hr IVPB 1700 [facility] Cefepime HCl 0.5 gm/ Sodium (Chloride) 100 mls @ 200 mls/hr IVPB Q24HR@2200 [facility] Insulin Human Isoph/Insulin Regular (Humulin 70/30) 15 units SC BID-AC [facility] Last Admin: 06/28/18 11:27 Dose: Not Given Insulin Human Lispro (Humalog) 0 units SC .MODERATE SLIDING SC PRN PRN Reason: Moderate Correctional Scale Insulin Human Lispro (Humalog) 0 units SC .BEDTIME SLIDING SC PRN PRN Reason: Bedtime Correctional Scale Lactulose (Lactulose) 20 gm PO BID PRN PRN Reason: Constipation Minoxidil (Minoxidil) 10 mg PO DAILY PRN PRN Reason: SBP Greater Than 170 Last Admin: 06/28/18 02:46 Dose: 10 mg Multivitamins (Theragran) 1 tab PO DAILY [facility] Last Admin: 06/28/18 11:28 Dose: Not Given Pantoprazole Sodium (Protonix) 40 mg PO DAILY [facility] Last Admin: 06/28/18 11:28 Dose: Not Given Polyethylene Glycol (Miralax) 17 gm PO DAILY [facility] Last Admin: 06/28/18 11:28 Dose: Not Given Sodium Chloride (Flush - Normal Saline) 10 ml IVF Q12HR [facility] Last Admin: 06/28/18 11:28 Dose: Not Given Sodium Chloride (Flush - Normal Saline) 10 ml IVF PRN PRN PRN Reason: Saline Flush
--- NOTE | 2018-06-28 19:08 | PRG ---
DATE OF SERVICE: 06/28/2018 SUBJECTIVE: The patient seen and examined noted with the following vital signs. PHYSICAL EXAMINATION: VITAL SIGNS: Afebrile with temperature 97.7, pulse 97, respiratory rate 20, and blood pressure 124/7 5. HEENT: Unremarkable with moist oral mucosa. No conjunctival injection or icterus. NECK: Supple. CARDIOVASCULAR: First and second heart sounds were heard. RESPIRATORY: Clear to auscultation. DIGESTIVE: Revealed a benign abdomen with positive bowel sounds. EXTREMITIES: No peripheral edema. SKIN: No new gross rash. LYMPHATICS: No peripheral lymphadenopathy. IMPRESSION: 1. End-stage renal disease, hemodialysis dependent. 2. Pneumonia, possibly in the context of aspiration pneumonitis. 3. Hypervolemia. PLAN: 1. The patient to continue with current regimen of hemodialysis Wednesday, , and Wednesday with ultrafiltration as tolerated by hemodynamics. 2. Further management to be dependent on the clinical course.
[2018-06-28] MEDS: Atorvastatin Calcium 40 MG TAB PO SCH ×2 (20:57→21:31)
[2018-06-28] MEDS ORDERED: Cefepime 0.5 GM in Sodium Chloride 0.9% 100 ML IVPB SCH (22:00)
[2018-06-29] MEDS: Insulin NPH/Reg Insulin Hm 300 UNITS/3 ML VIAL SC SCH ×2 (08:11→16:24)
[2018-06-29] MEDS: hydrALAZINE 25 MG TAB PO SCH ×2 (09:00→21:34)
[2018-06-29] MEDS: Aspirin 81 mg Enteric Coated Tablet PO SCH (09:00)
[2018-06-29] MEDS: Multivit, Therapeutic 1 TAB PO SCH (09:00)
[2018-06-29] MEDS: Heparin 5,000 UNITS/ML VIAL SC SCH ×3 (09:00→21:34)
[2018-06-29] MEDS: Polyethylene Glycol 3350 17 GM Packet PO SCH (09:01)
[2018-06-29] MEDS: Docusate 100 MG CAP PO SCH ×2 (09:01→21:34)
--- NOTE | 2018-06-29 11:44 | PDOC.PN ---
- Subjective Encounter Start Date: 06/29/18 Encounter Start Time: 10:00 Subjective: no sob, feels better -: is oriented and speech appears to be at his baseline this am -: is tolerating oral current diet - Objective Resuscitation Status: Resuscitation Status FULL:Full Resuscitation MAR Reviewed: Yes Vital Signs & Weight: Vital Signs (12 hours) Temp Pulse Resp BP BP BP Pulse Ox 06/29/18 09:00 79 136/81 06/29/18 08:00 95 06/29/18 07:34 97.7 F 79 20 136/81 95 06/29/18 04:00 98.2 F 79 20 129/82 95 06/29/18 00:00 98.1 F 80 20 117/75 92 L Weight Weight 186 lb 6 oz I&O: 06/28/18 06/29/18 06/30/18 06:59 06:59 06:59 Intake Total 240 180 Output Total 3000 Balance -2760 180 Result Diagrams: 06/28/18 03:50 06/28/18 03:50 Additional Labs: Accuchecks 06/29/18 06/28/18 06/28/18 04:30 20:52 20:33 POC Glucose 120 H 208 H 205 H 06/28/18 06/28/18 16:14 13:20 POC Glucose 187 H 76 Phys Exam - Physical Examination HEENT: PERRLA, moist MMs Neck: no JVD, supple Respiratory: no wheezing, no rales Cardiovascular: RRR, no significant murmur Gastrointestinal: soft, non-tender, positive bowel sounds Musculoskeletal: pulses present, edema present Neurological: non-focal, moves all 4 limbs Psychiatric: normal affect, A&O x 3 Dx/Plan (1) PNA (pneumonia) Code(s): J18.9 - PNEUMONIA, UNSPECIFIED ORGANISM Status: Acute Qualifiers: Pneumonia type: aspiration pneumonia Laterality: right Lung location: middle lobe of lung (2) Metabolic encephalopathy Code(s): G93.41 - METABOLIC ENCEPHALOPATHY Status: Resolved (3) Acute on chronic diastolic CHF (congestive heart failure) Code(s): I50.33 - ACUTE ON CHRONIC DIASTOLIC (CONGESTIVE) HEART FAILURE Status : Acute Comment: AHA class C (4) Fluid overload Code(s): E87.70 - FLUID OVERLOAD, UNSPECIFIED Status: Acute (5) Coronary artery disease Code(s): I25.10 - ATHSCL HEART DISEASE OF [place] CORONARY ARTERY W/O ANG PCTRS Status: Chronic Qualifiers: Coronary Disease-Associated Artery/Lesion type: [place] artery [place] vs. transplanted heart: [place] heart Associated angina: without angina Qualified Code(s): I25.10 - Atherosclerotic heart disease of [place] coronary artery without angina pectoris (6) ESRD (end stage renal disease) on dialysis Code(s): N18.6 - END STAGE RENAL DISEASE; Z99.2 - DEPENDENCE ON RENAL DIALYSIS Status: Chronic Comment: On HD per nephrology. (7) Hypertension Code(s): I10 - ESSENTIAL (PRIMARY) HYPERTENSION Status: Chronic Qualifiers: Hypertension type: essential hypertension (8) Physical deconditioning Code(s): R53.81 - OTHER [place]AISE Status: Chronic (9) Adenocarcinoma, colon Code(s): C18.9 - MALIGNANT NEOPLASM OF COLON, UNSPECIFIED Status: Resolved Comment: h/o left hemicolectomy for adenoCA - Plan on cefepime and levaquin for pna -: for modified ba swallow this am -: encephalopathy is resolved with pt at baseline -: continue asp, lipitor and 70/30 insulin -: diet per speech therapy advice, is amb in room * . Review of Systems - Medications/Allergies Allergies/Adverse Reactions: Allergies Allergy/AdvReac Type Severity Reaction Status Date / Time No Known Allergies Allergy Verified 06/28/18 00:38 Medications: Current Medications Acetaminophen (Tylenol) 650 mg PO Q4H PRN PRN Reason: Headache/Fever or Pain Acetaminophen (Tylenol) 650 mg [place] Q4H PRN PRN Reason: Headache/Fever or Pain Aspirin (Ecotrin) 81 mg PO DAILY [facility] Last Admin: 06/29/18 09:00 Dose: 81 mg Atorvastatin Calcium (Lipitor) 40 mg PO HS [facility] Last Admin: 06/28/18 21:31 Dose: Not Given Dextrose/Water (Dextrose 50%) 25 gm SLOW IVP PRN PRN PRN Reason: Hypoglycemia Docusate Sodium (Colace) 100 mg PO BID [facility] Last Admin: 06/29/18 09:01 Dose: 100 mg Glucagon (Glucagon) 1 mg IM PRN PRN PRN Reason: Hypoglycemia Guaifenesin/Dextromethorphan (Robitussin Dm) 15 ml PO Q4H PRN PRN Reason: Cough Heparin Sodium (Porcine) (Heparin) 5,000 units SC TID [facility] Last Admin: 06/29/18 09:00 Dose: 5,000 units Hydralazine HCl (Apresoline) 25 mg PO BID [facility] Last Admin: 06/29/18 09:00 Dose: 25 mg Dextrose/Water (D5w) 1,000 mls @ 0 mls/hr IV .Q0M PRN PRN Reason: Hypoglycemia Levofloxacin 250 mg/ Device 50 mls @ 100 mls/hr IVPB 1700 [facility] Last Admin: 06/28/18 16:33 Dose: 50 mls Cefepime HCl 0.5 gm/ Sodium (Chloride) 100 mls @ 200 mls/hr IVPB Q24HR@2200 [facility] Last Admin: 06/28/18 20:56 Dose: 100 mls Insulin Human Isoph/Insulin Regular (Humulin 70/30) 15 units SC BID-[facility] Last Admin: 06/29/18 08:11 Dose: 15 unit Insulin Human Lispro (Humalog) 0 units SC .MODERATE SLIDING SC PRN PRN Reason: Moderate Correctional Scale Insulin Human Lispro (Humalog) 0 units SC .BEDTIME SLIDING SC PRN PRN Reason: Bedtime Correctional Scale Lactulose (Lactulose) 20 gm PO BID PRN PRN Reason: Constipation Minoxidil (Minoxidil) 10 mg PO DAILY PRN PRN Reason: SBP Greater Than 170 Last Admin: 06/28/18 02:46 Dose: 10 mg Multivitamins (Theragran) 1 tab PO DAILY [facility] Last Admin: 06/29/18 09:00 Dose: 1 tab Pantoprazole Sodium (Protonix) 40 mg PO DAILY [facility] Last Admin: 06/29/18 09:00 Dose: 40 mg Polyethylene Glycol (Miralax) 17 gm PO DAILY [facility] Last Admin: 06/29/18 09:01 Dose: 17 gm Sodium Chloride (Flush - Normal Saline) 10 ml IVF Q12HR [facility] Last Admin: 06/29/18 09:01 Dose: 10 ml Sodium Chloride (Flush - Normal Saline) 10 ml IVF PRN PRN PRN Reason: Saline Flush
--- NOTE | 2018-06-29 13:01 | RAD ---
MODIFIED BARIUM SWALLOW IN THE PRESENCE OF THE SPEECH PATHOLOGIST: HISTORY: Previous stroke. Pneumonia, possible aspiration. Dysphagia following cerebral infarct. Dysphagia, oropharyngeal phase. EXPOSURE: 2.2 minutes 1.042 Gy per cm2. FINDINGS: In the presence of the speech pathologist, the patient was administered thin liquid and nectar thick, honey thick, and pudding consistencies. Decreased initiation of the swallow response. Resultant premature spilling and pooling in the vallec maryam and piriform sinuses. There is penetration and aspiration with thin liquid and nectar thick cons istencies. IMPRESSION: Please refer to the speech pathologist's report for feeding recommendations. POS: [facility]
[2018-06-29] MEDS: Atorvastatin Calcium 40 MG TAB PO SCH (21:34)
[2018-06-29] MEDS: Cefepime 0.5 GM, Admixture Fee 1 EACH in Sodium Chloride 0.9% 100 ML IVPB SCH (21:40)
--- NOTE | 2018-06-30 00:08 | PRG ---
DATE OF SERVICE: 06/29/2018 The patient was seen and examined with no new complaint noted with the following vital signs. PHYSICAL EXAMINATION: VITAL SIGNS: Afebrile with temperature 98.7, pulse 82, respiratory rate of 18, O2 sat 96% with a blo od pressure 152/82. HEENT: Unremarkable with moist oral mucosa. NECK: Supple, No conjunctival injection or icterus. CARDIOVASCULAR: First and second heart sounds were heard. RESPIRATORY: Clear to auscultation. DIGESTIVE: Revealed a benign abdomen with positive bowel sounds. EXTREMITIES: No peripheral edema. SKIN: No new gross rash. LYMPHATICS: No peripheral lymphadenopathy. IMPRESSION: 1. End-stage renal disease on hemodialysis. 2. Pneumonitis, likely in the context of aspiration pneumonia. PLAN: 1. The patient to continue with hemodialysis per current schedule. 2. Further management to be dependent on the clinical course.
[2018-06-30 04:38] LABS: #Basophils 0.1 thou/uL (0.0-0.2); #Eosinphils 0.6 thou/uL (0.0-0.7); #Lymphocytes 1.4 thou/uL (1.20-3.40); #Monocytes 0.8 thou/uL (0.11-0.59); #Neutrophils 4.5 thou/uL (1.40-6.50); %Basophils 0.9 % (0.0-1.0); %Eosinophils 8.2 % (0.0-10.0); %Lymphocytes 19.4 % (21.0-51.0); %Monocytes 10.3 % (0.0-10.0); %Neutrophils 61.2 % (42.0-75.0); Hemoglobin 11.5 g/dL (14.0-18.0); Mean Corpuscular HGB CONC 33.6 g/dL (32.0-36.0); Mean Corpuscular Hemoglobin 28.5 pg (27.0-31.0); Mean Corpuscular Volume 84.8 fL (78.0-98.0); Mean Platelet Volume 9.1 fL (7.4-10.4); Platelet Count 178 thou/uL (130-400); RBC Distribution Width 13.5 % (11.5-14.5); Red Blood Cell (RBC) Count 4.03 mill/uL (4.70-6.10); White Blood Cell (WBC) Count 7.4 thou/uL (4.8-10.8)
[2018-06-30 04:58] LABS: Anion Gap 16 mmol/L (10-20); BUN (Urea Nitrogen) 56 mg/dL (8.4-25.7); Calc. Creatinine Clearance 12 mL/min (70-130); Calcium 8.4 mg/dL (7.8-10.44); Carbon Dioxide 25 mmol/L (22-29); Chloride 98 mmol/L (98-107); Estimated GFR-MDRD 9; Glucose 103 mg/dL (70-105); Potassium 4.7 mmol/L (3.5-5.1); Sodium 134 mmol/L (136-145)
[2018-06-30] MEDS: Aspirin 81 mg Enteric Coated Tablet PO SCH (07:27)
[2018-06-30] MEDS: Heparin 5,000 UNITS/ML VIAL SC SCH ×3 (07:27→20:33)
[2018-06-30] MEDS: Docusate 100 MG CAP PO SCH ×2 (07:27→20:33)
[2018-06-30] MEDS: hydrALAZINE 25 MG TAB PO SCH ×2 (07:28→20:33)
[2018-06-30] MEDS: Multivit, Therapeutic 1 TAB PO SCH (07:28)
[2018-06-30] MEDS: Polyethylene Glycol 3350 17 GM Packet PO SCH (07:28)
[2018-06-30 09:08] LABS: HBSAg Index 0.15 S/CO (0-0.99); Hep B Surf Ag Non-Reactive S/CO (NonReactive)
[2018-06-30 10:10] LABS: HBSAB Concentration 1465.77 mIU/mL; Hep B Surf AB Reactive (NonReactive)
[2018-06-30 10:12] LABS: Hep B Core Total Ab Reactive (NonReactive); Hep B Core Total Index 7.31 S/CO (0-0.79)
--- NOTE | 2018-06-30 10:42 | PDOC.PN ---
- Subjective Encounter Start Date: 06/30/18 Encounter Start Time: 09:50 Subjective: getting HD, no sob -: feels better - Objective Resuscitation Status: Resuscitation Status FULL:Full Resuscitation MAR Reviewed: Yes Vital Signs & Weight: Vital Signs (12 hours) Temp Pulse Resp BP Pulse Ox 06/30/18 08:00 97 06/30/18 07:30 97.9 F 89 18 169/85 H 94 L 06/30/18 07:28 82 Weight Weight 186 lb 6 oz I&O: 06/29/18 06/30/18 07/01/18 06:59 06:59 06:59 Intake Total 240 880 Output Total 3000 50 Balance -2760 830 Result Diagrams: 06/30/18 04:06 06/30/18 04:06 Additional Labs: Accuchecks 06/30/18 06/29/18 06/29/18 05:34 19:53 16:48 POC Glucose 116 H 144 H 126 H 06/29/18 11:19 POC Glucose 111 H Phys Exam - Physical Examination HEENT: PERRLA, moist MMs Neck: no JVD, supple Respiratory: no wheezing, no rales Cardiovascular: RRR, no significant murmur Gastrointestinal: soft, non-tender, positive bowel sounds Musculoskeletal: no edema, pulses present Neurological: non-focal, moves all 4 limbs Psychiatric: normal affect, A&O x 3 Dx/Plan (1) PNA (pneumonia) Code(s): J18.9 - PNEUMONIA, UNSPECIFIED ORGANISM Status: Acute Qualifiers: Pneumonia type: aspiration pneumonia Laterality: right Lung location: middle lobe of lung (2) Metabolic encephalopathy Code(s): G93.41 - METABOLIC ENCEPHALOPATHY Status: Resolved (3) Acute on chronic diastolic CHF (congestive heart failure) Code(s): I50.33 - ACUTE ON CHRONIC DIASTOLIC (CONGESTIVE) HEART FAILURE Status : Acute Comment: AHA class C (4) Fluid overload Code(s): E87.70 - FLUID OVERLOAD, UNSPECIFIED Status: Acute (5) Coronary artery disease Code(s): I25.10 - ATHSCL HEART DISEASE OF [place] CORONARY ARTERY W/O ANG PCTRS Status: Chronic Qualifiers: Coronary Disease-Associated Artery/Lesion type: [place] artery [place] vs. transplanted heart: [place] heart Associated angina: without angina Qualified Code(s): I25.10 - Atherosclerotic heart disease of [place] coronary artery without angina pectoris (6) ESRD (end stage renal disease) on dialysis Code(s): N18.6 - END STAGE RENAL DISEASE; Z99.2 - DEPENDENCE ON RENAL DIALYSIS Status: Chronic Comment: On HD per nephrology. (7) Hypertension Code(s): I10 - ESSENTIAL (PRIMARY) HYPERTENSION Status: Chronic Qualifiers: Hypertension type: essential hypertension (8) Physical deconditioning Code(s): R53.81 - OTHER [place] Status: Chronic (9) Adenocarcinoma, colon Code(s): C18.9 - MALIGNANT NEOPLASM OF COLON, UNSPECIFIED Status: Resolved Comment: h/o left hemicolectomy for adenoCA (10) Dysphagia Code(s): R13.10 - DYSPHAGIA, UNSPECIFIED Status: Acute Qualifiers: Dysphagia type: unspecified Qualified Code(s): R13.10 - Dysphagia, unspecified - Plan on cefepime and levaquin, may switch to omnicef/clinda on dc -: is risk for aspiration, diet per speech therapy advice -: continue asp, lipitor, hydralazine -: dc insulins due to inadequate oral intake from restrictions bcos of asp -: repeat cxr for f/u * . Review of Systems - Medications/Allergies Allergies/Adverse Reactions: Allergies Allergy/AdvReac Type Severity Reaction Status Date / Time No Known Allergies Allergy Verified 06/28/18 00:38 Medications: Current Medications Acetaminophen (Tylenol) 650 mg PO Q4H PRN PRN Reason: Headache/Fever or Pain Acetaminophen (Tylenol) 650 mg MO Q4H PRN PRN Reason: Headache/Fever or Pain Aspirin (Ecotrin) 81 mg PO DAILY [facility] Last Admin: 06/30/18 07:27 Dose: Not Given Atorvastatin Calcium (Lipitor) 40 mg PO HS [facility] Last Admin: 06/29/18 21:34 Dose: 40 mg Dextrose/Water (Dextrose 50%) 25 gm SLOW IVP PRN PRN PRN Reason: Hypoglycemia Last Admin: 06/29/18 16:24 Dose: 25 gm Docusate Sodium (Colace) 100 mg PO BID [facility] Last Admin: 06/30/18 07:27 Dose: Not Given Glucagon (Glucagon) 1 mg IM PRN PRN PRN Reason: Hypoglycemia Guaifenesin/Dextromethorphan (Robitussin Dm) 15 ml PO Q4H PRN PRN Reason: Cough Heparin Sodium (Porcine) (Heparin) 5,000 units SC TID [facility] Last Admin: 06/30/18 07:27 Dose: Not Given Hydralazine HCl (Apresoline) 25 mg PO BID [facility] Last Admin: 06/30/18 07:28 Dose: Not Given Dextrose/Water (D5w) 1,000 mls @ 0 mls/hr IV .Q0M PRN PRN Reason: Hypoglycemia Levofloxacin 250 mg/ Device 50 mls @ 100 mls/hr IVPB 1700 [facility] Last Admin: 06/29/18 16:19 Dose: 50 mls Cefepime HCl 0.5 gm/Miscellaneous Medication 1 each/ Sodium Chloride 100 mls @ 200 mls/hr IVPB Q24HR@2200 [facility] Last Admin: 06/29/18 21:40 Dose: 100 mls Insulin Human Lispro (Humalog) 0 units SC .MODERATE SLIDING SC PRN PRN Reason: Moderate [place] Scale Insulin Human Lispro (Humalog) 0 units SC .BEDTIME SLIDING SC PRN PRN Reason: Bedtime [place] Scale Lactulose (Lactulose) 20 gm PO BID PRN PRN Reason: Constipation Minoxidil (Minoxidil) 10 mg PO DAILY PRN PRN Reason: SBP Greater Than 170 Last Admin: 06/28/18 02:46 Dose: 10 mg Multivitamins (Theragran) 1 tab PO DAILY [facility] Last Admin: 06/30/18 07:28 Dose: Not Given Pantoprazole Sodium (Protonix) 40 mg PO DAILY [facility] Last Admin: 06/30/18 07:28 Dose: Not Given Polyethylene Glycol (Miralax) 17 gm PO DAILY [facility] Last Admin: 06/30/18 07:28 Dose: Not Given Sodium Chloride (Flush - Normal Saline) 10 ml IVF Q12HR [facility] Last Admin: 06/30/18 07:28 Dose: Not Given Sodium Chloride (Flush - Normal Saline) 10 ml IVF PRN PRN PRN Reason: Saline Flush
--- NOTE | 2018-06-30 13:10 | RAD ---
CHEST 1 VIEW: Date: 06/30/18 COMPARISON: 06/27/18. HISTORY: Follow-up pneumonia. FINDINGS: Normal cardiac silhouette. Pulmonary vessels and hilum are normal. Costophrenic angles are clear. No mass. No consolidation. No pneumothorax or osseous abnormalities. IMPRESSION: No acute cardiopulmonary process. POS: [facility]
--- NOTE | 2018-06-30 15:15 | PRG ---
DATE OF SERVICE: 06/30/2018 SUBJECTIVE: The patient was seen and examined. PHYSICAL EXAMINATION: VITAL SIGNS: Afebrile with temperature 97.9, pulse 89, respirations of 18, O2 sat 97% with a blood p ressure 169/85. HEENT: Unremarkable with moist oral mucosa. No conjunctival injection or icterus. NECK: Supple. CARDIOVASCULAR: First and second heart sounds were heard. RESPIRATORY: Clear to auscultation. DIGESTIVE: Revealed a benign abdomen with positive bowel sounds. EXTREMITIES: No peripheral edema. SKIN: No new gross rash. LYMPHATICS: No peripheral lymphadenopathy. IMPRESSION: 1. End-stage renal disease, hemodialysis dependent. 2. Pneumonitis, likely in the context of aspiration pneumonia. PLAN: 1. The patient to continue with hemodialysis as per schedule of Wednesday, Wednesday and Wednesday. 2. Further management to be dependent on the clinical course as well as further recommendations from the primary service.
[2018-06-30] MEDS: Atorvastatin Calcium 40 MG TAB PO SCH (20:33)
[2018-06-30] MEDS: Cefepime 0.5 GM, Admixture Fee 1 EACH in Sodium Chloride 0.9% 100 ML IVPB SCH (21:12)
[2018-07-01] MEDS: Docusate 100 MG CAP PO SCH (09:46)
[2018-07-01] MEDS: Multivit, Therapeutic 1 TAB PO SCH (09:46)
[2018-07-01] MEDS: hydrALAZINE 25 MG TAB PO SCH (09:46)
[2018-07-01] MEDS: Heparin 5,000 UNITS/ML VIAL SC SCH (09:46)
[2018-07-01] MEDS: Aspirin 81 mg Enteric Coated Tablet PO SCH (09:46)
[2018-07-01] MEDS: Polyethylene Glycol 3350 17 GM Packet PO SCH (09:47)
--- NOTE | 2018-07-01 09:53 | PDOC.PN ---
- Subjective Encounter Start Date: 07/01/18 Encounter Start Time: 09:51 Subjective: alert - Objective Resuscitation Status: Resuscitation Status FULL:Full Resuscitation MAR Reviewed: Yes Vital Signs & Weight: Vital Signs (12 hours) Temp Pulse Resp BP Pulse Ox 07/01/18 07:04 98.3 F 77 18 153/83 H 94 L Weight Weight 186 lb 6 oz I&O: 06/30/18 07/01/18 07/02/18 06:59 06:59 06:59 Intake Total 880 360 Output Total 50 Balance 830 360 Result Diagrams: 06/30/18 04:06 06/30/18 04:06 Additional Labs: Accuchecks 07/01/18 06/30/18 06/30/18 05:07 20:05 16:23 POC Glucose 121 H 167 H 181 H 06/30/18 06/29/18 14:23 16:22 POC Glucose 149 H 45 L* Phys Exam - Physical Examination mild stridor over neck Neck: no JVD Respiratory: clear to auscultation bilateral Cardiovascular: RRR, no significant murmur Gastrointestinal: soft, positive bowel sounds Musculoskeletal: edema present Dx/Plan (1) Dysphagia Code(s): R13.10 - DYSPHAGIA, UNSPECIFIED Status: Acute Qualifiers: Dysphagia type: unspecified Qualified Code(s): R13.10 - Dysphagia, unspecified (2) Hyperglycemia due to type 2 diabetes mellitus Code(s): E11.65 - TYPE 2 DIABETES MELLITUS WITH HYPERGLYCEMIA Status: Acute (3) Malignant hypertension Code(s): I10 - ESSENTIAL (PRIMARY) HYPERTENSION Status: Acute (4) Adenocarcinoma, colon Code(s): C18.9 - MALIGNANT NEOPLASM OF COLON, UNSPECIFIED Status: Resolved Comment: h/o left hemicolectomy for adenoCA (5) Hypotension Status: Resolved Qualifiers: Hypotension type: other hypotension type Qualified Code(s): I95.89 - Other hypotension Comment: resolved.. (6) Metabolic encephalopathy Code(s): G93.41 - METABOLIC ENCEPHALOPATHY Status: Resolved (7) ESRD (end stage renal disease) on dialysis Code(s): N18.6 - END STAGE RENAL DISEASE; Z99.2 - DEPENDENCE ON RENAL DIALYSIS Status: Acute (8) ESRD (end stage renal disease) on dialysis Code(s): N18.6 - END STAGE RENAL DISEASE; Z99.2 - DEPENDENCE ON RENAL DIALYSIS Status: Chronic Comment: On HD per nephrology. - Plan nectar thick liquids, pureed diet -: HD befote discharge -: DC antibx- FU CXR clear -: cont anti- hypertensive meds -: accu/ss * .
[2018-07-01 11:06] VITALS: BP 169/90; TEMP 98.1
--- NOTE | 2018-07-01 13:32 | DIS ---
DATE OF ADMISSION: 06/27/2018 DATE OF DISCHARGE: 07/01/2018 TRANSFER OF CARE PRIMARY CARE PROVIDER: Bozena Maurice M.D. DISCHARGE DISPOSITION: Discharged back to [facility]. FINAL DIAGNOSES: Encephalopathy, end-stage renal disease requiring hemodialysis, diabetes mellitus t ype 2, hypertension, dyslipidemia, diastolic heart failure acute on chronic, fluid overload, coronary artery disease, hypertension, adenocarcinoma of the colon, dysphagia as a late effect of a stroke. DISCHARGE MEDICATIONS: NPH 70/30 15 units subcu twice a day, minoxidil 10 mg a day, calcium carbonat e 1000 mg a day, clonidine 0.1 , trazodone 50 mg at bedtime, Apresoline 25 mg twice a day, Lipit or 40 mg a day, MiraLax 17 g in water daily, Protonix 40 mg a day, aspirin 81 mg a day, nifedipine 30 mg a day. ALLERGIES: No known drug allergies. DIET: Pureed diet with nectar thickened liquids. CODE STATUS: Full. PENDING AT THE TIME OF DISCHARGE: Nothing. HOSPITAL COURSE: The patient was admitted to the [facility] from [facility] with some confusion, possibility of right middle lobe pneumonia, volume overload. Respiratory exam showed some scattered rhonchi, bilateral. Chest x-ray showed some patchy infiltrates, possible right middle lobe pneumonia. His laboratory revealed a normal white count of 7.6, which continued to be normal on 06/28/2018 and 06/30/2018. Chemistries revealed an elevated creatinine of 8.97, BUN of 45, potassium 4.4, sodium 132 with a BNP of 426. The patient's cultures revealed only a less than 5 000 colonies of coagulase negative staph. The patient was treated with antibiotics, improved rapidly with hemodialysis. His followup chest x-ray done 06/30/2018 shows clear lung prater, suggesting the possible pneumonia was really indeed just fluid from volume overload. Antibiotics have been discont inued. Modified barium swallow demonstrated penetration aspiration with thin liquids. He was placed on a pureed diet with nectar thick liquids. He is being returned to the [facility] for continuing care, hemodialysis 3 times a week, back on his usual medicines with follow up with Dr. Mueller in 7 da ys. His encephalopathy has improved with hemodialysis, suggesting that the problem was related to in adequate hemodialysis.
== END 2018-07-01 13:45 | DRG 291 ==
LOC: ERS 12:35 → ERHOLD 17:07 → OBSVTOIN 17:07 → T4-A 21:08
PROVIDERS: ADMIT Internal Medicine; ATTEND Internal Medicine
DX: I13.2 Hypertensive heart and chronic kidney disease with heart failure and with stage 5 chronic kidney disease, or end stage renal disease (principal); N18.6 End stage renal disease; I50.33 Acute on chronic diastolic (congestive) heart failure; J69.0 Pneumonitis due to inhalation of food and vomit; G93.41 Metabolic encephalopathy; E11.22 Type 2 diabetes mellitus with diabetic chronic kidney disease; I25.10 Atherosclerotic heart disease of native coronary artery without angina pectoris; Z99.2 Dependence on renal dialysis; E78.5 Hyperlipidemia, unspecified; Z85.038 Personal history of other malignant neoplasm of large intestine; I69.991 Dysphagia following unspecified cerebrovascular disease; R13.10 Dysphagia, unspecified; Z79.82 Long term (current) use of aspirin; E11.65 Type 2 diabetes mellitus with hyperglycemia; I95.9 Hypotension, unspecified; E87.70 Fluid overload, unspecified; R53.81 Other malaise; Z79.4 Long term (current) use of insulin; Z90.49 Acquired absence of other specified parts of digestive tract; F19.11 Other psychoactive substance abuse, in remission
CPT/HCPCS: 36415; 36416; 51701; 70450; 70551; 71045; 74230; 80048; 80053; 81003; 81015; 82553; 83735; 83880; 84484; 85025; 86704; 86706; 87086; 87340; 90935; 93005; 96365; 96366; 96367; A4216; G0257; G8978-GP-CL; G8979-GP-CL; G8980-GP-CL; G8996-GN-CL; G8996-GN-CN; G8997-GN-CJ; G8997-GN-CL; J0692; J1644; J1956; J2543; J7050

== ENCOUNTER 2019-02-20 17:24 | Emergency (ER) | payer MEDICAID, OTHER ==
[~2019-02-20 17:24] MED LIST: ISOVUE-370 76%-LOCM 1 ML ONE
[2019-02-20] MEDS ORDERED: Ondansetron ODT 4 MG TAB ONE (17:40)
[2019-02-20 18:20] LABS: #Eosinphils 0.2 thou/uL (0.0-0.7); #Lymphocytes 0.8 thou/uL (1.20-3.40); #Monocytes 0.5 thou/uL (0.11-0.59); #Neutrophils 6.5 thou/uL (1.40-6.50); %Basophils 0.6 % (0.0-1.0); %Eosinophils 2.4 % (0.0-10.0); %Lymphocytes 9.7 % (21.0-51.0); %Monocytes 6.3 % (0.0-10.0); Hemoglobin 11.2 g/dL (14.0-18.0); Mean Corpuscular HGB CONC 31.3 g/dL (32.0-36.0); Mean Corpuscular Hemoglobin 28.3 pg (27.0-31.0); Mean Corpuscular Volume 90.2 fL (78.0-98.0); Platelet Count 140 thou/uL (130-400); RBC Distribution Width 14.5 % (11.5-14.5); Red Blood Cell (RBC) Count 3.97 mill/uL (4.70-6.10)
--- NOTE | 2019-02-20 18:33 | CT ---
CT Abdomen Pelvis W Con History: [Abdominal pain] Comparison: CT abdomen and pelvis without contrast February 2018 Findings: Lung bases are clear. No pericardial effusion. Prior cholecystectomy. Moderate stool burden of the colon. No evidence for bowel obstruction. The appendix is visualized and is normal. Aortic contour is not aneurysmal. Liver, spleen, pancreas, adrenal glands are normal. Both kidneys ar e small with cortical thinning. No hydronephrosis. Aortic contour is nonaneurysmal. Severe erosive endplate changes, progressive, at L3/L4 and L4/L5. Th ere is bilateral neural foraminal and spinal canal narrowing at L3/L4. Impression: 1. No evidence for bowel obstruction. 2. Progressive erosive changes lower lumbar spine. There is also bilateral neural foraminal narrowing is spinal canal narrowing at the level of L3/L4. This is likely sequelae of patient's renal osteodystrophy. If there is concern for discitis/osteomyelitis, MRI with and without contrast would b e required.
[2019-02-20 18:46] LABS: ALT (SGPT) 12 U/L (8-55); AST (SGOT) 14 U/L (5-34); Albumin 4.5 g/dL (3.5-5.0); Alkaline Phosphatase 116 U/L (40-150); Anion Gap 17 mmol/L (10-20); BUN (Urea Nitrogen) 24 mg/dL (8.4-25.7); Bilirubin, Total 0.7 mg/dL (0.2-1.2); Calc. Creatinine Clearance 0 mL/min (70-130); Calcium 9.8 mg/dL (7.8-10.44); Carbon Dioxide 30 mmol/L (22-29); Chloride 95 mmol/L (98-107); Estimated GFR-MDRD 13; Globulin 4.3 g/dL (2.4-3.5); Glucose 186 mg/dL (70-105); Lipase 94 U/L (8-78); Potassium 4.4 mmol/L (3.5-5.1); Protein, Total 8.8 g/dL (6.0-8.3); Sodium 138 mmol/L (136-145)
[2019-02-20] MEDS ORDERED: Ondansetron PF 4 MG/2 ML Vial ONE (20:02)
== END 2019-02-20 20:27 | disposition home or self-care (01) ==
LOC: ERS 17:24
DX: R10.11 Right upper quadrant pain (principal); I11.0 Hypertensive heart disease with heart failure; I50.9 Heart failure, unspecified; E11.9 Type 2 diabetes mellitus without complications; E78.5 Hyperlipidemia, unspecified; I25.2 Old myocardial infarction; Z79.4 Long term (current) use of insulin; Z79.82 Long term (current) use of aspirin; Z79.899 Other long term (current) drug therapy
CPT/HCPCS: 74177; 80053; 83690; 84484; 85025; 93005; J2405; Q0162; Q9966

== ENCOUNTER 2019-04-11 12:59 | Outpatient (CLI) | payer OTHER ==
--- NOTE | 2019-04-11 14:37 | ULT ---
BILATERAL UPPER EXTREMITY VENOUS MAPPIN04/11/19 HISTORY: End-stage renal disease. Evaluate for dialysis access. FINDINGS: Lafleur scale, color flow, Doppler evaluation of the bilateral upper extremity, cephalic and basilic vei ns as well as arteries is evaluated with 2D imaging. There is increased luminal echogenicity and absence of flow within the right upper extremity cephalic vein related to thrombus and occlusion of the right upper extremity cephalic vein. RIGHT UPPER EXTREMITY BRACHIAL ARTERY: 8.4 mm RADIAL ARTERY: 2.4 mm ULNAR ARTERY: 2.5 mm BASILIC VEIN Upper Arm: 4 mm Mid Arm: 3.8 mm Distal Arm: 4 mm Antecubital Fossa: 3.9 mm Proximal Forearm: 1.9 mm Mid Forearm: 2 mm Distal Forearm: 1.9 mm LEFT UPPER EXTREMITY BRACHIAL ARTERY: 4.9 mm RADIAL ARTERY: 2.1 mm ULNAR ARTERY: 2.3 mm CEPHALIC VEIN Upper Arm: 3.7 mm Mid Arm: 2.8 mm Distal Arm: 2.6 mm Antecubital Fossa: 3.2 mm Proximal Forearm: 1.2 mm Mid Forearm: 0.8 mm Distal Forearm: 1.9 mm BASILIC VEIN Upper Arm: 4.3 mm Mid Arm: 4.5 mm Distal Arm: 3.8 mm Antecubital Fossa: 3 mm Proximal Forearm: 1.6 mm Mid Forearm: 1.3 mm Distal Forearm: 1.3 mm Flow is demonstrated within the bilateral internal jugular, subclavian, and axillary veins. IMPRESSION: 1. Thrombus and occlusion involving the right upper extremity cephalic vein. 2. Venous diameters of the left upper extremity cephalic vein as well as the bilateral upper ext remity basilic veins are as described above. POS: OFF
== END 2019-04-11 13:00 | disposition home or self-care (01) ==
LOC: BICULT 12:59
PROVIDERS: ATTEND Surgery
DX: N18.6 End stage renal disease (principal); I82.611 Acute embolism and thrombosis of superficial veins of right upper extremity
CPT/HCPCS: 93970; G0365

== ENCOUNTER 2019-05-30 09:55 | Day surgery (SDC) | payer OTHER ==
[2019-05-29 10:13] VITALS: BMI 29.0
[2019-05-30 10:59] LABS: #Basophils 0.1 thou/uL (0.0-0.2); #Eosinphils 0.9 thou/uL (0.0-0.7); #Lymphocytes 1.2 thou/uL (1.20-3.40); #Monocytes 0.6 thou/uL (0.11-0.59); %Eosinophils 13.1 % (0.0-10.0); %Monocytes 9.2 % (0.0-10.0); %Neutrophils 58.6 % (42.0-75.0); Hemoglobin 10.3 g/dL (14.0-18.0); Mean Corpuscular HGB CONC 33.2 g/dL (32.0-36.0); Mean Corpuscular Hemoglobin 29.2 pg (27.0-31.0); Mean Corpuscular Volume 87.9 fL (78.0-98.0); Mean Platelet Volume 8.8 fL (7.4-10.4); Platelet Count 158 thou/uL (130-400); RBC Distribution Width 13.4 % (11.5-14.5); Red Blood Cell (RBC) Count 3.52 mill/uL (4.70-6.10); White Blood Cell (WBC) Count 6.8 thou/uL (4.8-10.8)
[2019-05-30] MEDS ORDERED: ceFAZolin Sodium (SDC) 2 GM/100 ML BAG ONE (11:22)
[2019-05-30 11:27] LABS: Anion Gap 16 mmol/L (10-20); BUN (Urea Nitrogen) 29 mg/dL (8.4-25.7); Calc. Creatinine Clearance 15 mL/min (70-130); Calcium 9.2 mg/dL (7.8-10.44); Carbon Dioxide 27 mmol/L (22-29); Chloride 98 mmol/L (98-107); Estimated GFR-MDRD 9; Glucose 225 mg/dL (70-105); Potassium 4.2 mmol/L (3.5-5.1); Sodium 137 mmol/L (136-145)
[2019-05-30] MEDS ORDERED: Protamine Sulfate 50 MG/5 ML VIAL ONE (12:09)
[2019-05-30] MEDS ORDERED: Lidocaine 2% PF 5 ML VIAL ONE (12:09)
[2019-05-30] MEDS ORDERED: Bupivacaine/Epinephrine 0.25% 30 ML VIAL ONE (12:09)
[2019-05-30] MEDS ORDERED: Heparin 5,000 UNITS/ML VIAL ONE (12:09)
[2019-05-30] MEDS ORDERED: Ioversol 68 % 50 ML VIAL ONE (12:09)
[2019-05-30] MEDS ORDERED: Midazolam HCl 2 mg/2 ml Vial ONE (12:10)
[2019-05-30] MEDS ORDERED: Fentanyl 100 MCG/2 ML VIAL ONE ×2 (12:21→14:47)
[2019-05-30] MEDS ORDERED: Heparin 10,000 UNITS/ 10 ML VIAL ONE ×2 (12:47→18:41)
[2019-05-30] MEDS ORDERED: PHENYLEPHRINE-NS 100 MCG/ML 10 ML SYRINGE ONE (12:47)
[2019-05-30] MEDS ORDERED: PROPOFOL 200 MG/20 ML VIAL ONE (12:47)
--- NOTE | 2019-06-01 19:29 | PDOC.OP ---
Operative Note - Operative Note Operative Note: DATE OF PROCEDURE: PROCEDURE: Left upper arm radiocephalic basilic AV fistula. SURGEON: Miko Costello M.D. PREOPERATIVE DIAGNOSIS: End-stage renal failure. POSTOPERATIVE DIAGNOSIS: End-stage renal failure. HISTORY: Patient with end-stage renal failure who requires permanent access for ongoing hemodialysis. After reviewing vein mapping the decision was made to proceed with a primary fistula on the left. 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 PROCEDURE: After informed consent was obtained and appropriate preoperative antibiotics administered, the patient was taken to the operating room and was placed in supine position and anesthesia was administered. Local anesthesia was infused between the palpable cephalic vein and radial artery at the wrist. An incision was made at the wrist and the cephalic vein at the level of the wrist was dissected out but was found to be of inadequate caliber to support a primary fistula due to a stenosis in the distal forearm. This skin incision was closed with 4-0 Monocryl and Dermabond was applied. Attention was then turned to the upper arm. The palpable antecubital vein was marked on the skin as was the palpable brachial pulse. An incision was made between these 2 structures and dissection carried down to the antecubital vein complex. There was no appropriate perforating branch but the forearm cephalic vein appeared patent and potentially usable. This was dissected free and interrogated. The cephalic vein had a tight stenosis near the bifurcation but the basilic vein easily accepted up to a 3.5 mm dilator. The vein was flushed with heparinized saline and clamped. The brachial artery was identified and dissected free. Heparin was administered systemically and allowed to circulate for 3 minutes. After the heparin had circulated for 3 minutes, the brachial artery was clamped proximally and distally. An anterior arteriotomy was created with an 11 blade and extended with Roche scissors. The vein was spatulated and an end-to-side anastomosis was created with excellent technical result. Prior to tying down the anastomosis, the arterial inflow was released flushing the anastomosis. The anastomosis was then secured and hemostasis was verified. Flow was established first through the fistula following which flow was restored through the artery. The patient had a palpable thrill in the basilic outflow as well as a good Doppler signal in the same distribution. The wound was irrigated and examined for hemostasis was again confirmed to be excellent. The subcutaneous tissues were reapproximated with a running 3-0 Monocryl sutures and the skin was closed with running 4-0 subcuticular Monocryl suture. Dermabond dressings were placed. Prior to leaving the operating room the fistula was again examined by Doppler and a good bruit confirmed. The patient was then taken to recovery in good condition. Estimated blood loss was minimal. There were no complications. There were no specimens.
== END 2019-05-30 18:20 | disposition home or self-care (01) ==
LOC: SDC 09:55
PROVIDERS: ATTEND Surgery
PROC: 03180ZD Bypass Left Brachial Artery to Upper Arm Vein, Open Approach (ICD-10-PCS; principal; 2019-05-30)
DX: I12.0 Hypertensive chronic kidney disease with stage 5 chronic kidney disease or end stage renal disease (principal); N18.6 End stage renal disease; I25.10 Atherosclerotic heart disease of native coronary artery without angina pectoris; E78.5 Hyperlipidemia, unspecified; Z99.2 Dependence on renal dialysis; Z86.73 Personal history of transient ischemic attack (TIA), and cerebral infarction without residual deficits; Z79.4 Long term (current) use of insulin; Z79.899 Other long term (current) drug therapy
CPT/HCPCS: 80048; 85025; J0690; J1644; J2001; J2250; J2720; J3010; Q9967

== ENCOUNTER 2019-07-11 10:00 | Day surgery (SDC) | payer OTHER ==
[2019-07-10 14:07] VITALS: BMI 31.7
[2019-07-11 11:39] LABS: #Lymphocytes 1.1 thou/uL (1.20-3.40); #Monocytes 0.4 thou/uL (0.11-0.59); #Neutrophils 3.5 thou/uL (1.40-6.50); %Basophils 0.6 % (0.0-1.0); %Eosinophils 16.9 % (0.0-10.0); %Lymphocytes 18.2 % (21.0-51.0); %Neutrophils 57.4 % (42.0-75.0); Hemoglobin 10.6 g/dL (14.0-18.0); Mean Corpuscular HGB CONC 33.9 g/dL (32.0-36.0); Mean Corpuscular Hemoglobin 29.5 pg (27.0-31.0); Mean Corpuscular Volume 86.9 fL (78.0-98.0); Mean Platelet Volume 9.7 fL (7.4-10.4); Platelet Count 119 thou/uL (130-400); RBC Distribution Width 13.3 % (11.5-14.5)
[2019-07-11 11:41] LABS: Eosinophils 13 % (0-10); Lymphocytes 22 % (21-51); Monocytes 3 % (0-10)
[2019-07-11 11:42] LABS: Neutrophil 62 % (42-75)
[2019-07-11 11:45] LABS: Tear Drops SLIGHT = 2-5 cells (100X) (0-1/hpf)
[2019-07-11 11:46] LABS: Platelet Morphology Comment Appears Decreased; Polychromasia SLIGHT = 2-3 cells (100X) (0-2/hpf)
[2019-07-11 11:57] LABS: Chloride 99 mmol/L (98-107); Potassium 4.8 mmol/L (3.5-5.1)
[2019-07-11 11:58] LABS: Calcium 9.1 mg/dL (7.8-10.44); Sodium 137 mmol/L (136-145)
[2019-07-11 11:59] LABS: Glucose 222 mg/dL (70-105)
[2019-07-11 12:00] LABS: Anion Gap 16 mmol/L (10-20); Carbon Dioxide 27 mmol/L (22-29)
[2019-07-11 12:02] LABS: Calc. Creatinine Clearance 16 mL/min (70-130); Estimated GFR-MDRD 9
[2019-07-11 12:03] LABS: BUN (Urea Nitrogen) 32 mg/dL (8.4-25.7)
[2019-07-11] MEDS ORDERED: Fentanyl 100 MCG/2 ML VIAL ONE (12:20)
[2019-07-11] MEDS ORDERED: Heparin 5,000 UNITS/ML VIAL ONE (12:29)
[2019-07-11] MEDS ORDERED: Bupivacaine/Epinephrine 0.25% 30 ML VIAL ONE (12:29)
[2019-07-11] MEDS ORDERED: Protamine Sulfate 50 MG/5 ML VIAL ONE (12:29)
[2019-07-11] MEDS ORDERED: Lidocaine 2% PF 5 ML VIAL ONE (12:29)
[2019-07-11] MEDS ORDERED: Metoprolol Tartrate 5 MG/5 ML VIAL ONE (16:22)
[2019-07-11] MEDS ORDERED: hydrALAZINE 20 MG/ML VIAL ONE ×2 (16:23→17:18)
[2019-07-11] MEDS ORDERED: Heparin 10,000 UNITS/ 10 ML VIAL ONE ×2 (18:59→22:22)
[2019-07-11] MEDS ORDERED: Lidocaine 1% PF 5 ML VIAL ONE (22:22)
[2019-07-11] MEDS ORDERED: Ondansetron PF 4 MG/2 ML Vial ONE (22:22)
[2019-07-11] MEDS ORDERED: ePHEDrine 50 MG/ML VIAL ONE (22:22)
[2019-07-11] MEDS ORDERED: PROPOFOL 200 MG/20 ML VIAL ONE (22:22)
[2019-07-11] MEDS ORDERED: PHENYLEPHRINE-NS 100 MCG/ML 10 ML SYRINGE ONE (22:22)
--- NOTE | 2019-07-15 10:18 | PDOC.OP ---
Operative Note - Operative Note Operative Note: DATE OF PROCEDURE: 07/11/2019 PROCEDURE: Left basilic vein transposition fistula. SURGEON: Miko Costello M.D. PREOPERATIVE DIAGNOSIS: End-stage renal failure. POSTOPERATIVE DIAGNOSIS: End-stage renal failure. HISTORY: Patient with end-stage renal failure. He has a left upper arm basilic fistula which requires transposition to be accessible. DESCRIPTION OF PROCEDURE: After informed consent was obtained and appropriate neuromuscular blockade was administered, the patient was taken to the operating room and placed in supine position. The arm was prepped and draped in a standard sterile fashion and adequacy of block was confirmed. The distal basilic vein was dissected out to near the anastomosis with the basilic vein. The basilic vein was then dissected free to the level of its confluence with the axillary vein, ligating side branches as they were encountered. The vein was marked for orientation, clamped and divided near the level of the anastomosis with the artery. The basilic vein was compressed at the level of the axilla and heparinized saline was instilled, distending the vein. The patient was found to have fairly pronounced endothelial hyperplasia of the proximal basilic vein, but since the vein had distended with infusion of saline was felt that this was likely still adequate for fistula creation. The vein was checked for leaks and none were seen. The vein was then flushed with heparinized saline and a bulldog clamp placed at the level of the axilla. A 12 mm tunneler was obtained and brought up from the antecubital to the axillary area. The 12 mm tip was removed and a 6 mm tip placed and the basilic vein was secured to this. The basilic vein was drawn down through the subcutaneous tunnel being careful not to twist the vein. This was found easily to reach to the proximal basilic vein which was of adequate quality and caliber to support transposition. Heparin was then administered systemically and allowed to circulate for 3 minutes. The proximal basilic vein was clamped and divided obliquely to create a wide anastomosis. An end-to-side anastomosis was created between the basilic vein and the basilic stump with a running 6-0 Prolene suture with excellent technical result. Prior to completing the anastomosis, the inflow was released, flushing the anastomosis. The anastomosis was then completed, all clamps were removed and hemostasis verified. There was an audible bruit through the basilic fistula which was readily palpable beneath the skin. The inner arm wound was then irrigated and hemostasis obtained with Bovie electrocautery. The subcutaneous tissues were closed in two layers with 3-0 Monocryl suture following which the skin incision was closed with skin lukas. Xeroform and Tegaderm dressings were placed and the arm was wrapped with an Jay wrap. The patient was taken to the recovery room in good condition. Estimated blood loss was minimal. There were no complications. There were no specimens.
== END 2019-07-11 19:05 | disposition home or self-care (01) ==
LOC: SDC 10:00
PROVIDERS: ATTEND Surgery
PROC: 05SC0ZZ Reposition Left Basilic Vein, Open Approach (ICD-10-PCS; principal; 2019-07-11)
DX: I13.11 Hypertensive heart and chronic kidney disease without heart failure, with stage 5 chronic kidney disease, or end stage renal disease (principal); N18.6 End stage renal disease; E78.5 Hyperlipidemia, unspecified; I25.10 Atherosclerotic heart disease of native coronary artery without angina pectoris; Z79.4 Long term (current) use of insulin; Z79.82 Long term (current) use of aspirin; Z79.899 Other long term (current) drug therapy; Z86.73 Personal history of transient ischemic attack (TIA), and cerebral infarction without residual deficits; Z85.038 Personal history of other malignant neoplasm of large intestine
CPT/HCPCS: 80048; 85025; J0131; J0360; J0690; J1644; J2001; J2405; J2704; J2720; J3010; J3490

== ENCOUNTER 2021-07-13 08:27 | Emergency (ER) | payer OTHER ==
[2021-07-13 09:53] LABS: #Eosinphils 0.6 thou/uL (0.0-0.7); #Lymphocytes 1.4 thou/uL (1.20-3.40); #Monocytes 0.5 thou/uL (0.11-0.59); #Neutrophils 5.3 thou/uL (1.40-6.50); %Basophils 0.1 % (0.0-1.0); %Eosinophils 8.1 % (0.0-10.0); %Lymphocytes 17.6 % (21.0-51.0); %Neutrophils 68.3 % (42.0-75.0); Hemoglobin 10.4 g/dL (14.0-18.0); Mean Corpuscular HGB CONC 33.6 g/dL (32.0-36.0); Mean Corpuscular Hemoglobin 31.3 pg (27.0-31.0); Mean Corpuscular Volume 92.9 fL (78.0-98.0); Mean Platelet Volume 8.4 fL (7.4-10.4); Platelet Count 164 thou/uL (130-400); RBC Distribution Width 13.5 % (11.5-14.5); Red Blood Cell (RBC) Count 3.34 mill/uL (4.70-6.10); White Blood Cell (WBC) Count 7.8 thou/uL (4.8-10.8)
[2021-07-13 09:56] LABS: ALT (SGPT) 17 U/L (8-55); AST (SGOT) 12 U/L (5-34); Albumin 3.7 g/dL (3.5-5.0); Alkaline Phosphatase 72 U/L (40-110); Anion Gap 16 mmol/L (10-20); BUN (Urea Nitrogen) 57 mg/dL (8.4-25.7); Bilirubin, Total 0.6 mg/dL (0.2-1.2); Calc. Creatinine Clearance 0 mL/min (70-130); Calcium 9.8 mg/dL (7.8-10.44); Carbon Dioxide 27 mmol/L (22-29); Chloride 98 mmol/L (98-107); Globulin 3.5 g/dL (2.4-3.5); Glucose 156 mg/dL (70-105); Potassium 4.3 mmol/L (3.5-5.1); Protein, Total 7.2 g/dL (6.0-8.3); Sodium 137 mmol/L (136-145)
== END 2021-07-13 12:06 ==
LOC: ERS 08:27
DX: I13.2 Hypertensive heart and chronic kidney disease with heart failure and with stage 5 chronic kidney disease, or end stage renal disease (principal); I50.9 Heart failure, unspecified; N18.6 End stage renal disease; E11.22 Type 2 diabetes mellitus with diabetic chronic kidney disease; E78.5 Hyperlipidemia, unspecified; E78.00 Pure hypercholesterolemia, unspecified; E78.1 Pure hyperglyceridemia; Z79.899 Other long term (current) drug therapy; Z79.4 Long term (current) use of insulin
CPT/HCPCS: 36415; 80053; 85025; 93005

== ENCOUNTER 2021-08-19 19:02 | Emergency (ER) | payer OTHER ==
[~2021-08-19 19:02] MED LIST changes: -ISOVUE-370 76%-LOCM 1 ML ONE; +Iopamidol-370 76% 500 ML 1 ML ONE
[2021-08-19] MEDS ORDERED: Morphine 4 MG/ML VIAL ONE (19:27)
[2021-08-19] MEDS ORDERED: Ondansetron PF 4 MG/2 ML Vial ONE (19:27)
[2021-08-19 19:35] LABS: #Eosinphils 0.3 thou/uL (0.0-0.7); #Monocytes 0.5 thou/uL (0.11-0.59); #Neutrophils 6.2 thou/uL (1.40-6.50); %Basophils 0.5 % (0.0-1.0); %Lymphocytes 12.5 % (21.0-51.0); %Monocytes 5.7 % (0.0-10.0); %Neutrophils 77.2 % (42.0-75.0); Hemoglobin 11.7 g/dL (14.0-18.0); Mean Corpuscular HGB CONC 34.4 g/dL (32.0-36.0); Mean Corpuscular Volume 92.9 fL (78.0-98.0); Mean Platelet Volume 8.3 fL (7.4-10.4); Platelet Count 175 thou/uL (130-400); RBC Distribution Width 13.7 % (11.5-14.5); Red Blood Cell (RBC) Count 3.64 mill/uL (4.70-6.10)
[2021-08-19 19:58] LABS: ALT (SGPT) 16 U/L (8-55); AST (SGOT) 15 U/L (5-34); Alkaline Phosphatase 84 U/L (40-110); Anion Gap 13 mmol/L (10-20); BUN (Urea Nitrogen) 19 mg/dL (8.4-25.7); Bilirubin, Total 0.6 mg/dL (0.2-1.2); Calc. Creatinine Clearance 0 mL/min (70-130); Calcium 10.1 mg/dL (7.8-10.44); Carbon Dioxide 29 mmol/L (22-29); Chloride 98 mmol/L (98-107); Globulin 3.7 g/dL (2.4-3.5); Glucose 217 mg/dL (70-105); Lipase 25 U/L (8-78); Magnesium 2.1 mg/dL (1.6-2.6); Potassium 4.1 mmol/L (3.5-5.1); Protein, Total 7.7 g/dL (6.0-8.3); Sodium 136 mmol/L (136-145)
== END 2021-08-19 22:47 ==
LOC: ERS 19:02
DX: K59.00 Constipation, unspecified (principal); E78.5 Hyperlipidemia, unspecified; I25.2 Old myocardial infarction; E11.9 Type 2 diabetes mellitus without complications; I11.0 Hypertensive heart disease with heart failure; I50.9 Heart failure, unspecified; Z79.899 Other long term (current) drug therapy
CPT/HCPCS: 36415; 71045; 74177; 80053; 83690; 83735; 85025; 85652; 86140; 93005; 96374; 96375; J2270; J2405; Q9967

== ENCOUNTER 2021-08-22 20:52 | Inpatient (IN) | payer OTHER ==
[2021-08-22 22:12] LABS: #Eosinphils 0.7 thou/uL (0.0-0.7); #Lymphocytes 1.3 thou/uL (1.20-3.40); #Monocytes 0.6 thou/uL (0.11-0.59); #Neutrophils 6.5 thou/uL (1.40-6.50); %Basophils 0.1 % (0.0-1.0); %Eosinophils 7.3 % (0.0-10.0); %Lymphocytes 14.8 % (21.0-51.0); %Monocytes 6.2 % (0.0-10.0); %Neutrophils 71.6 % (42.0-75.0); Hemoglobin 10.9 g/dL (14.0-18.0); Mean Corpuscular HGB CONC 34.1 g/dL (32.0-36.0); Mean Corpuscular Hemoglobin 31.8 pg (27.0-31.0); Mean Corpuscular Volume 93.3 fL (78.0-98.0); Mean Platelet Volume 8.3 fL (7.4-10.4); Platelet Count 165 thou/uL (130-400); RBC Distribution Width 13.5 % (11.5-14.5); Red Blood Cell (RBC) Count 3.42 mill/uL (4.70-6.10); White Blood Cell (WBC) Count 9.1 thou/uL (4.8-10.8)
[2021-08-22 22:29] LABS: ALT (SGPT) 34 U/L (8-55); AST (SGOT) 18 U/L (5-34); Albumin 3.9 g/dL (3.5-5.0); Alkaline Phosphatase 88 U/L (40-110); Anion Gap 15 mmol/L (10-20); BUN (Urea Nitrogen) 31 mg/dL (8.4-25.7); Bilirubin, Total 0.7 mg/dL (0.2-1.2); Calc. Creatinine Clearance 0 mL/min (70-130); Calcium 10.2 mg/dL (7.8-10.44); Carbon Dioxide 29 mmol/L (22-29); Chloride 93 mmol/L (98-107); Glucose 182 mg/dL (70-105); Potassium 4.1 mmol/L (3.5-5.1); Protein, Total 7.9 g/dL (6.0-8.3); Sodium 133 mmol/L (136-145)
[2021-08-22] MEDS ORDERED: Nitroglycerin 2% Ointment 1 INCH/1 GM Packet ONE (23:15)
[2021-08-23] MEDS ORDERED: Ondansetron PF 4 MG/2 ML Vial ONE
[2021-08-23 00:12] LABS: Magnesium 2.4 mg/dL (1.6-2.6)
[2021-08-23] MEDS ORDERED: hydrALAZINE 20 MG/ML VIAL ONE (00:39)
[2021-08-23 01:29] VITALS: BMI 33.2
[2021-08-23 01:42] LABS: Troponin I 0.109 ng/mL (< 0.028)
[2021-08-23] MEDS ORDERED: Morphine 4 MG/ML VIAL SLOW IVP SCH (02:00)
[2021-08-23] MEDS ORDERED: Metoclopramide HCl 10 MG/2 ML VIAL IVP SCH (02:00)
[2021-08-23] MEDS ORDERED: Ondansetron PF 4 MG/2 ML Vial IVP PRN (02:24)
[2021-08-23] MEDS ORDERED: Acetaminophen 325 MG TAB PO PRN (02:24)
[2021-08-23] MEDS ORDERED: traMADol HCl 50 MG TAB PO PRN (02:56)
[2021-08-23] MEDS ORDERED: Metoclopramide HCl 10 MG/2 ML VIAL IVP PRN (02:56)
[2021-08-23] MEDS ORDERED: Fleet Enema 133 ML BOT FS SCH (05:30)
[2021-08-23] MEDS: Senokot S 8.6-50 MG TAB PO SCH ×2 (08:35→20:03)
[2021-08-23] MEDS ORDERED: Calcium Carbonate 500 MG ChewTAB PO PRN (10:23)
[2021-08-23] MEDS ORDERED: Dextrose 5% in Water 1,000 ML IV PRN (10:30)
[2021-08-23] MEDS ORDERED: Dextrose 50% Abboject 50 ML SYRINGE SLOW IVP PRN (10:30)
[2021-08-23] MEDS: Sevelamer Carbonate 800 MG TAB PO SCH ×2 (11:30→18:41)
[2021-08-23] MEDS: HumaLOG 300 UNITS/3 ML VIAL SC PRN ×2 (11:31→20:16)
[2021-08-23 12:48] LABS: #Basophils 0.1 thou/uL (0.0-0.2); #Eosinphils 0.5 thou/uL (0.0-0.7); #Lymphocytes 1.3 thou/uL (1.20-3.40); #Monocytes 0.5 thou/uL (0.11-0.59); %Basophils 0.7 % (0.0-1.0); %Eosinophils 6.5 % (0.0-10.0); %Lymphocytes 17.7 % (21.0-51.0); %Monocytes 6.7 % (0.0-10.0); %Neutrophils 68.3 % (42.0-75.0); Hemoglobin 11.6 g/dL (14.0-18.0); Mean Corpuscular HGB CONC 33.9 g/dL (32.0-36.0); Mean Corpuscular Hemoglobin 31.7 pg (27.0-31.0); Mean Corpuscular Volume 93.5 fL (78.0-98.0); Mean Platelet Volume 8.7 fL (7.4-10.4); Platelet Count 148 thou/uL (130-400); RBC Distribution Width 13.9 % (11.5-14.5); Red Blood Cell (RBC) Count 3.65 mill/uL (4.70-6.10); White Blood Cell (WBC) Count 7.3 thou/uL (4.8-10.8)
[2021-08-23 13:03] LABS: Anion Gap 20 mmol/L (10-20); BUN (Urea Nitrogen) 38 mg/dL (8.4-25.7); Calc. Creatinine Clearance 13 mL/min (70-130); Calcium 9.4 mg/dL (7.8-10.44); Carbon Dioxide 24 mmol/L (22-29); Cardiac Risk 4.5 (Less than 4.5); Chloride 93 mmol/L (98-107); Cholesterol 108 mg/dl (< 200 Desired); Glucose 367 mg/dL (70-105); HDL Cholesterol 24 mg/dL (>60 Neg Risk); LDL Cholesterol, Calculated 33 mg/dL; Potassium 4.4 mmol/L (3.5-5.1); Sodium 133 mmol/L (136-145); Triglycerides 255 mg/dL (Less than 150)
[2021-08-23 13:31] LABS: HBSAg Index 0.25 S/CO (0-0.99); Hep B Surf Ag Non-Reactive S/CO (NonReactive)
[2021-08-23 13:33] LABS: HBSAB Concentration 231.31 mIU/mL; Hep B Surf AB Reactive (NonReactive)
[2021-08-23 15:22] LABS: SARS-CoV-2 PCR by NAA Not Detected (NotDetected)
[2021-08-23] MEDS: Atorvastatin Calcium 40 MG TAB PO SCH (20:02)
[2021-08-23] MEDS: traZODone HCl 50 MG TAB PO SCH (20:03)
[2021-08-23] MEDS ORDERED: Carvedilol 3.125 MG TAB PO SCH (21:00)
[2021-08-24] MEDS ORDERED: cloNIDine 0.1 MG TAB PO SCH (04:34)
[2021-08-24 05:31] LABS: #Eosinphils 0.4 thou/uL (0.0-0.7); #Monocytes 0.4 thou/uL (0.11-0.59); #Neutrophils 5.4 thou/uL (1.40-6.50); %Basophils 0.4 % (0.0-1.0); %Eosinophils 5.6 % (0.0-10.0); %Lymphocytes 13.9 % (21.0-51.0); %Monocytes 5.8 % (0.0-10.0); %Neutrophils 74.3 % (42.0-75.0); Mean Corpuscular HGB CONC 34.1 g/dL (32.0-36.0); Mean Corpuscular Hemoglobin 31.6 pg (27.0-31.0); Mean Corpuscular Volume 92.8 fL (78.0-98.0); Mean Platelet Volume 8.7 fL (7.4-10.4); Platelet Count 155 thou/uL (130-400); RBC Distribution Width 13.7 % (11.5-14.5); White Blood Cell (WBC) Count 7.3 thou/uL (4.8-10.8)
[2021-08-24 05:53] LABS: ALT (SGPT) 29 U/L (8-55); AST (SGOT) 22 U/L (5-34); Albumin 3.9 g/dL (3.5-5.0); Alkaline Phosphatase 89 U/L (40-110); Anion Gap 16 mmol/L (10-20); BUN (Urea Nitrogen) 21 mg/dL (8.4-25.7); Bilirubin, Total 0.8 mg/dL (0.2-1.2); Calc. Creatinine Clearance 19 mL/min (70-130); Calcium 9.2 mg/dL (7.8-10.44); Carbon Dioxide 27 mmol/L (22-29); Chloride 95 mmol/L (98-107); Globulin 3.7 g/dL (2.4-3.5); Glucose 329 mg/dL (70-105); Potassium 4.5 mmol/L (3.5-5.1); Protein, Total 7.6 g/dL (6.0-8.3); Sodium 133 mmol/L (136-145)
[2021-08-24] MEDS: HumaLOG 300 UNITS/3 ML VIAL SC PRN ×3 (06:17→20:46)
[2021-08-24] MEDS ORDERED: NIFEdipine XL 60 MG TAB PO SCH (06:45)
[2021-08-24] MEDS: Aspirin 81 mg Enteric Coated Tablet PO SCH (08:40)
[2021-08-24] MEDS: Senokot S 8.6-50 MG TAB PO SCH ×2 (08:40→20:45)
[2021-08-24] MEDS: Carvedilol 3.125 MG TAB PO SCH ×2 (08:40→20:46)
[2021-08-24] MEDS: Sevelamer Carbonate 800 MG TAB PO SCH ×3 (08:40→17:53)
[2021-08-24] MEDS: Lantus 1000 UNITS/10 ML VIAL SC SCH (08:58)
[2021-08-24] MEDS ORDERED: NIFEdipine XL 30 MG TAB PO SCH (12:30)
[2021-08-24] MEDS ORDERED: Bisacodyl 10 MG SUPP PR SCH (13:45)
[2021-08-24] MEDS: Atorvastatin Calcium 40 MG TAB PO SCH (20:45)
[2021-08-24] MEDS: traZODone HCl 50 MG TAB PO SCH (20:46)
[2021-08-25] MEDS: Senokot S 8.6-50 MG TAB PO SCH (08:11)
[2021-08-25] MEDS: Carvedilol 3.125 MG TAB PO SCH (08:11)
[2021-08-25] MEDS: Sevelamer Carbonate 800 MG TAB PO SCH ×2 (08:11→11:58)
[2021-08-25] MEDS: Lantus 1000 UNITS/10 ML VIAL SC SCH (08:12)
[2021-08-25] MEDS: Aspirin 81 mg Enteric Coated Tablet PO SCH (08:12)
[2021-08-25] MEDS ORDERED: Polyethylene Glycol 3350 17 GM Packet PO SCH (09:00)
[2021-08-25] MEDS ORDERED: NIFEdipine XL 60 MG TAB PO SCH (09:00)
[2021-08-25] MEDS ORDERED: NIFEdipine XL 90 MG TAB PO SCH (09:00)
[2021-08-25 09:37] LABS: #Eosinphils 0.6 thou/uL (0.0-0.7); #Lymphocytes 1.6 thou/uL (1.20-3.40); #Monocytes 0.5 thou/uL (0.11-0.59); %Basophils 0.4 % (0.0-1.0); %Eosinophils 7.6 % (0.0-10.0); %Lymphocytes 20.4 % (21.0-51.0); %Monocytes 6.6 % (0.0-10.0); Mean Corpuscular HGB CONC 33.9 g/dL (32.0-36.0); Mean Corpuscular Hemoglobin 31.4 pg (27.0-31.0); Mean Corpuscular Volume 92.6 fL (78.0-98.0); Mean Platelet Volume 8.6 fL (7.4-10.4); Platelet Count 166 thou/uL (130-400); RBC Distribution Width 13.6 % (11.5-14.5); Red Blood Cell (RBC) Count 3.51 mill/uL (4.70-6.10); White Blood Cell (WBC) Count 7.7 thou/uL (4.8-10.8)
[2021-08-25 09:49] LABS: Anion Gap 16 mmol/L (10-20); BUN (Urea Nitrogen) 36 mg/dL (8.4-25.7); Calc. Creatinine Clearance 14 mL/min (70-130); Calcium 8.8 mg/dL (7.8-10.44); Carbon Dioxide 28 mmol/L (22-29); Chloride 94 mmol/L (98-107); Glucose 209 mg/dL (70-105); Potassium 4.2 mmol/L (3.5-5.1); Sodium 134 mmol/L (136-145)
[2021-08-25] MEDS: HumaLOG 300 UNITS/3 ML VIAL SC PRN (11:18)
[2021-08-25 17:29] VITALS: BP 154/76; TEMP 97.8
[2021-08-25] MEDS ORDERED: Lantus 1000 UNITS/10 ML VIAL SC SCH (21:00)
== END 2021-08-25 17:00 | DRG 391 ==
LOC: ERS 20:52 → 2SW 23:47 → OBSVTOIN 08-25 10:23
PROVIDERS: ADMIT Internal Medicine; ATTEND Internal Medicine
DX: K59.00 Constipation, unspecified (principal); N18.6 End stage renal disease; I50.32 Chronic diastolic (congestive) heart failure; I69.354 Hemiplegia and hemiparesis following cerebral infarction affecting left non-dominant side; I24.8 Other forms of acute ischemic heart disease; I13.2 Hypertensive heart and chronic kidney disease with heart failure and with stage 5 chronic kidney disease, or end stage renal disease; I16.0 Hypertensive urgency; I25.10 Atherosclerotic heart disease of native coronary artery without angina pectoris; E11.22 Type 2 diabetes mellitus with diabetic chronic kidney disease; D63.1 Anemia in chronic kidney disease; E11.21 Type 2 diabetes mellitus with diabetic nephropathy; E11.65 Type 2 diabetes mellitus with hyperglycemia; Z20.822 Contact with and (suspected) exposure to COVID-19; Z99.2 Dependence on renal dialysis; I25.2 Old myocardial infarction; Z79.82 Long term (current) use of aspirin; Z79.899 Other long term (current) drug therapy; Z79.4 Long term (current) use of insulin; Z90.49 Acquired absence of other specified parts of digestive tract
CPT/HCPCS: 36415; 36416; 74176; 80048; 80053; 80061; 82553; 83735; 84484; 85025; 86706; 87340; 90935; 93005; 93306; 96372; 96374; 96375; G0257; G0378; J0360; J1815; J2270; J2405; J2765; U0003; U0005

== ENCOUNTER 2022-04-10 23:14 | Inpatient (IN) | payer OTHER ==
[2022-04-11 00:08] LABS: #Eosinphils 0.8 thou/uL (0.0-0.7); #Lymphocytes 1.4 thou/uL (1.20-3.40); #Monocytes 0.8 thou/uL (0.11-0.59); #Neutrophils 4.8 thou/uL (1.40-6.50); %Basophils 0.2 % (0.0-1.0); %Eosinophils 9.6 % (0.0-10.0); %Lymphocytes 18.3 % (21.0-51.0); %Monocytes 10.5 % (0.0-10.0); %Neutrophils 61.4 % (42.0-75.0); Hemoglobin 11.5 g/dL (14.0-18.0); Mean Corpuscular HGB CONC 32.4 g/dL (32.0-36.0); Mean Corpuscular Volume 92.5 fL (78.0-98.0); Mean Platelet Volume 8.5 fL (7.4-10.4); Platelet Count 164 thou/uL (130-400); RBC Distribution Width 15.1 % (11.5-14.5); Red Blood Cell (RBC) Count 3.85 mill/uL (4.70-6.10); White Blood Cell (WBC) Count 7.9 thou/uL (4.8-10.8)
[2022-04-11] MEDS ORDERED: Morphine 4 MG/ML VIAL ONE (00:09)
[2022-04-11] MEDS ORDERED: Ondansetron PF 4 MG/2 ML Vial ONE (00:09)
[2022-04-11 01:05] LABS: Anion Gap 22 mmol/L (10-20); BUN (Urea Nitrogen) 41 mg/dL (8.4-25.7); Calc. Creatinine Clearance 0 mL/min (70-130); Carbon Dioxide 22 mmol/L (22-29); Chloride 98 mmol/L (98-107); Potassium 6.1 mmol/L (3.5-5.1); Sodium 136 mmol/L (136-145)
[2022-04-11 01:06] LABS: ALT (SGPT) 16 U/L (8-55); AST (SGOT) 38 U/L (5-34); Albumin 3.9 g/dL (3.5-5.0); Alkaline Phosphatase 115 U/L (40-110); Bilirubin, Total 0.7 mg/dL (0.2-1.2); Calcium 9.3 mg/dL (7.8-10.44); Globulin 4.5 g/dL (2.4-3.5); Glucose 217 mg/dL (70-105); Lipase 55 U/L (8-78); Protein, Total 8.4 g/dL (6.0-8.3)
[2022-04-11] MEDS ORDERED: Dextrose 50% Abboject 50 ML SYRINGE ONE (01:25)
[2022-04-11] MEDS ORDERED: Sodium Bicarb 50 MEQ/50 ML Abboject 8.4% SYRINGE ONE ×2 (01:25→01:38)
[2022-04-11] MEDS ORDERED: Calcium Chloride 1 GM/10 ML Abboject SYRINGE ONE (01:25)
[2022-04-11] MEDS ORDERED: Insulin Regular 300 UNITS/3 ML VIAL ONE (01:25)
[2022-04-11 06:24] LABS: Anion Gap 22 mmol/L (10-20); BUN (Urea Nitrogen) 43 mg/dL (8.4-25.7); Calc. Creatinine Clearance 0 mL/min (70-130); Calcium 10.1 mg/dL (7.8-10.44); Carbon Dioxide 21 mmol/L (22-29); Chloride 98 mmol/L (98-107); Glucose 230 mg/dL (70-105); Sodium 136 mmol/L (136-145)
[2022-04-11 06:31] LABS: Bacteria/HPF None Seen HPF (None Seen); Bilirubin Negative (Negative); Blood, Urine 3+ (Negative); Clarity Clear (Clear); Glucose, Urine (Dipstick) 500 mg/dL (Negative); Ketone, Urine Negative (Negative); Leukocyte Negative Leu/uL (Negative); Nitrite Negative (Negative); Protein, Urine (Dipstick) 200 mg/dL (Neg-Trace); RBC/HPF Greater than 50 HPF (0-3); Specific Gravity, Urine 1.014 (1.002-1.036); Squamous Epithelial 0-3 HPF (0-3); Urobilinogen Normal mg/dL (Less than 2)
[2022-04-11 08:30] LABS: HBSAg Index 0.32 S/CO (0-0.99); Hep B Surf Ag Non-Reactive S/CO (NonReactive)
[2022-04-11] MEDS ORDERED: HumaLOG 300 UNITS/3 ML VIAL SC PRN (08:44)
[2022-04-11] MEDS ORDERED: Dextrose 5% in Water 1,000 ML IV PRN (08:44)
[2022-04-11] MEDS ORDERED: Ondansetron ODT 4 MG TAB PO PRN (08:44)
[2022-04-11] MEDS ORDERED: Acetaminophen 325 MG TAB PO PRN (08:44)
[2022-04-11] MEDS ORDERED: Ondansetron PF 4 MG/2 ML Vial IVP PRN (08:44)
[2022-04-11] MEDS ORDERED: Dextrose 50% Abboject 50 ML SYRINGE SLOW IVP PRN (08:44)
[2022-04-11 10:01] LABS: HBSAB Concentration 265.45 mIU/mL; Hep B Core Total Ab Reactive (NonReactive); Hep B Surf AB Reactive (NonReactive); Hep C IgG Ab Reflex HepC Qnt (NonReactive); Hep C Index 12.44 S/CO (0-0.79)
[2022-04-11] MEDS ORDERED: Iopamidol-370 76% 500 ML 1 ML ONE (12:27)
[2022-04-11 14:20] VITALS: BMI 31.2
[2022-04-11] MEDS ORDERED: NIFEdipine XL 90 MG TAB PO SCH (18:00)
[2022-04-11] MEDS ORDERED: Aspirin 81 mg Enteric Coated Tablet PO SCH (18:15)
[2022-04-11] MEDS: HumaLOG 300 UNITS/3 ML VIAL SC PRN (18:31)
[2022-04-11] MEDS: Polyethylene Glycol 3350 17 GM Packet PO SCH (21:35)
[2022-04-11] MEDS: Senokot S 8.6-50 MG TAB PO SCH (21:35)
[2022-04-12 05:34] LABS: #Eosinphils 0.3 thou/uL (0.0-0.7); #Lymphocytes 1.3 thou/uL (1.20-3.40); #Monocytes 0.5 thou/uL (0.11-0.59); #Neutrophils 5.2 thou/uL (1.40-6.50); %Basophils 0.3 % (0.0-1.0); %Eosinophils 4.6 % (0.0-10.0); %Lymphocytes 17.2 % (21.0-51.0); %Monocytes 7.2 % (0.0-10.0); %Neutrophils 70.7 % (42.0-75.0); Hemoglobin 12.4 g/dL (14.0-18.0); Mean Corpuscular Hemoglobin 29.6 pg (27.0-31.0); Mean Corpuscular Volume 92.4 fL (78.0-98.0); Mean Platelet Volume 8.6 fL (7.4-10.4); Platelet Count 164 thou/uL (130-400); RBC Distribution Width 15.2 % (11.5-14.5); White Blood Cell (WBC) Count 7.4 thou/uL (4.8-10.8)
[2022-04-12 05:52] LABS: ALT (SGPT) 28 U/L (8-55); AST (SGOT) 22 U/L (5-34); Albumin 3.8 g/dL (3.5-5.0); Alkaline Phosphatase 123 U/L (40-110); Anion Gap 18 mmol/L (10-20); BUN (Urea Nitrogen) 25 mg/dL (8.4-25.7); Calc. Creatinine Clearance 18 mL/min (70-130); Calcium 9.4 mg/dL (7.8-10.44); Carbon Dioxide 27 mmol/L (22-29); Chloride 96 mmol/L (98-107); Glucose 158 mg/dL (70-105); Potassium 4.1 mmol/L (3.5-5.1); Protein, Total 7.8 g/dL (6.0-8.3); Sodium 137 mmol/L (136-145)
[2022-04-12] MEDS: Senokot S 8.6-50 MG TAB PO SCH ×2 (08:42→20:41)
[2022-04-12] MEDS: NIFEdipine XL 90 MG TAB PO SCH (08:42)
[2022-04-12] MEDS: Polyethylene Glycol 3350 17 GM Packet PO SCH ×2 (08:42→20:41)
[2022-04-12] MEDS: Aspirin 81 mg Enteric Coated Tablet PO SCH (08:43)
[2022-04-12] MEDS ORDERED: Cinacalcet HCl 30 MG TAB PO SCH (09:45)
[2022-04-12] MEDS: HumaLOG 300 UNITS/3 ML VIAL SC PRN (10:51)
[2022-04-12] MEDS: Sevelamer 2.4 GM PACKET PO SCH ×2 (12:16→17:09)
[2022-04-12] MEDS ORDERED: GoLYTELY 4,000 ml Bottle PO SCH (16:30)
[2022-04-12] MEDS ORDERED: Atorvastatin Calcium 40 MG TAB PO SCH (21:00)
[2022-04-13 05:16] LABS: #Eosinphils 0.5 thou/uL (0.0-0.7); #Lymphocytes 1.2 thou/uL (1.20-3.40); #Monocytes 0.6 thou/uL (0.11-0.59); #Neutrophils 4.7 thou/uL (1.40-6.50); %Basophils 0.3 % (0.0-1.0); %Eosinophils 7.2 % (0.0-10.0); %Lymphocytes 17.5 % (21.0-51.0); %Neutrophils 66.1 % (42.0-75.0); Hemoglobin 11.6 g/dL (14.0-18.0); Mean Corpuscular HGB CONC 32.4 g/dL (32.0-36.0); Mean Corpuscular Hemoglobin 29.8 pg (27.0-31.0); Mean Corpuscular Volume 91.8 fL (78.0-98.0); Mean Platelet Volume 8.2 fL (7.4-10.4); Platelet Count 129 thou/uL (130-400); RBC Distribution Width 14.8 % (11.5-14.5); Red Blood Cell (RBC) Count 3.89 mill/uL (4.70-6.10)
[2022-04-13 05:42] LABS: ALT (SGPT) 20 U/L (8-55); AST (SGOT) 14 U/L (5-34); Albumin 3.6 g/dL (3.5-5.0); Alkaline Phosphatase 117 U/L (40-110); Anion Gap 22 mmol/L (10-20); BUN (Urea Nitrogen) 35 mg/dL (8.4-25.7); Bilirubin, Total 0.9 mg/dL (0.2-1.2); Calc. Creatinine Clearance 13 mL/min (70-130); Calcium 8.9 mg/dL (7.8-10.44); Carbon Dioxide 25 mmol/L (22-29); Chloride 93 mmol/L (98-107); Globulin 3.7 g/dL (2.4-3.5); Glucose 182 mg/dL (70-105); Potassium 4.4 mmol/L (3.5-5.1); Protein, Total 7.3 g/dL (6.0-8.3); Sodium 136 mmol/L (136-145)
[2022-04-13] MEDS ORDERED: Cinacalcet HCl 30 MG TAB PO SCH (09:00)
[2022-04-13] MEDS ORDERED: Carvedilol 3.125 MG TAB PO SCH (09:00)
[2022-04-13] MEDS ORDERED: PROPOFOL 200 MG/20 ML VIAL ONE (09:01)
[2022-04-13] MEDS: Polyethylene Glycol 3350 17 GM Packet PO SCH (10:41)
[2022-04-13] MEDS: NIFEdipine XL 90 MG TAB PO SCH (10:41)
[2022-04-13] MEDS: Sevelamer 2.4 GM PACKET PO SCH ×2 (10:42→14:17)
[2022-04-13] MEDS: Aspirin 81 mg Enteric Coated Tablet PO SCH (10:42)
[2022-04-13] MEDS: Senokot S 8.6-50 MG TAB PO SCH (10:49)
[2022-04-13] MEDS: HumaLOG 300 UNITS/3 ML VIAL SC PRN (11:36)
[2022-04-13 12:02] VITALS: BP 167/87; TEMP 98
== END 2022-04-13 16:20 | DRG 391 ==
LOC: ERS 23:14 → ERHOLD 04-11 06:44 → NEURO 04-11 14:02 → OBSVTOIN 04-13 13:57
PROVIDERS: ADMIT Student in an Organized Health Care Education/Training Program; ATTEND Internal Medicine
PROC: 5A1D70Z Performance of Urinary Filtration, Intermittent, Less than 6 Hours Per Day (ICD-10-PCS; principal; 2022-04-13)
PROC: 0DBN8ZZ Excision of Sigmoid Colon, Via Natural or Artificial Opening Endoscopic (ICD-10-PCS; 2022-04-13)
PROC: 0DBP8ZZ Excision of Rectum, Via Natural or Artificial Opening Endoscopic (ICD-10-PCS; 2022-04-13)
DX: K52.89 Other specified noninfective gastroenteritis and colitis (principal); N18.6 End stage renal disease; I69.854 Hemiplegia and hemiparesis following other cerebrovascular disease affecting left non-dominant side; I13.2 Hypertensive heart and chronic kidney disease with heart failure and with stage 5 chronic kidney disease, or end stage renal disease; I50.32 Chronic diastolic (congestive) heart failure; B18.1 Chronic viral hepatitis B without delta-agent; N25.81 Secondary hyperparathyroidism of renal origin; K59.09 Other constipation; K63.5 Polyp of colon; E87.5 Hyperkalemia; Z20.822 Contact with and (suspected) exposure to COVID-19; E78.5 Hyperlipidemia, unspecified; E11.22 Type 2 diabetes mellitus with diabetic chronic kidney disease; D63.1 Anemia in chronic kidney disease; B18.2 Chronic viral hepatitis C; E83.39 Other disorders of phosphorus metabolism; K64.4 Residual hemorrhoidal skin tags; K64.8 Other hemorrhoids; I25.10 Atherosclerotic heart disease of native coronary artery without angina pectoris; Z99.2 Dependence on renal dialysis; Z90.49 Acquired absence of other specified parts of digestive tract; Z79.4 Long term (current) use of insulin; Z79.899 Other long term (current) drug therapy
CPT/HCPCS: 36415; 36416; 74177; 80048; 80053; 81003; 81015; 83690; 85025; 86704; 87340; 87522; 88305; 90935; 93005; 96374; 96375; G0257; G0378; J1815; J2270; J2405; J2704; J7999; U0003; U0005

== ENCOUNTER 2023-09-04 11:33 | Emergency (ER) | payer OTHER ==
[2023-09-04 12:21] LABS: #Eosinphils 0.7 thou/uL (0.0-0.7); #Monocytes 0.5 thou/uL (0.11-0.59); #Neutrophils 4.6 thou/uL (1.40-6.50); %Basophils 0.6 % (0.0-1.0); %Eosinophils 9.4 % (0.0-10.0); %Lymphocytes 17.2 % (21.0-51.0); %Monocytes 7.3 % (0.0-10.0); %Neutrophils 65.4 % (42.0-75.0); Hematocrit 36.4 % (42.0-52.0); Hemoglobin 11.8 g/dL (14.0-18.0); Mean Corpuscular HGB CONC 32.4 g/dL (32.0-36.0); Mean Corpuscular Hemoglobin 30.1 pg (27.0-31.0); Mean Corpuscular Volume 92.9 fl (78.0-98.0); Mean Platelet Volume 10.5 fL (7.4-10.4); Platelet Count 152 10x3/uL (130-400); RBC Distribution Width 13.5 % (11.5-14.5); Red Blood Cell (RBC) Count 3.92 mill/uL (4.70-6.10)
[2023-09-04 12:44] LABS: ALT (SGPT) 19 U/L (8-55); AST (SGOT) 14 U/L (5-34); Albumin 3.9 g/dL (3.4-4.8); Alkaline Phosphatase 194 U/L (40-110); Anion Gap 16 mmol/L (10-20); BUN (Urea Nitrogen) 33 mg/dL (8.4-25.7); Bilirubin, Total 0.6 mg/dL (0.2-1.2); Calc. Creatinine Clearance 0 mL/min (70-130); Calcium 9.2 mg/dL (7.8-10.44); Carbon Dioxide 27 mmol/L (23-31); Chloride 100 mmol/L (98-107); Estimated GFR 5; Globulin 3.7 g/dL (2.4-3.5); Glucose 168 mg/dL (80-115); Potassium 4.1 mmol/L (3.5-5.1); Protein, Total 7.6 g/dL (5.8-8.1); Sodium 139 mmol/L (136-145)
[2023-09-04 12:48] LABS: Troponin I 0.051 ng/mL (< 0.028)
== END 2023-09-04 18:02 | disposition home or self-care (01) ==
LOC: ERS 11:33
DX: R06.02 Shortness of breath (principal); I11.0 Hypertensive heart disease with heart failure; I50.9 Heart failure, unspecified; E11.9 Type 2 diabetes mellitus without complications; E78.2 Mixed hyperlipidemia; Z86.73 Personal history of transient ischemic attack (TIA), and cerebral infarction without residual deficits; Z79.899 Other long term (current) drug therapy; Z79.82 Long term (current) use of aspirin
CPT/HCPCS: 36415; 71045; 80053; 84484; 85025; 93005

== ENCOUNTER 2024-06-09 20:15 | Emergency (ER) | payer OTHER ==
[2024-06-09 21:06] LABS: #Basophils 0.03 10x3/uL (0.0-0.2); %Basophils 0.5 % (0.0-1.0); %Eosinophils 8.5 % (0.0-10.0); %Lymphocytes 15.1 % (21.0-51.0); %Monocytes 7.6 % (0.0-10.0); Hematocrit 27.4 % (42.0-52.0); Hemoglobin 8.6 g/dL (14.0-18.0); Mean Corpuscular HGB CONC 31.4 g/dL (32.0-36.0); Mean Corpuscular Hemoglobin 28.8 pg (27.0-31.0); Mean Corpuscular Volume 91.6 fL (78.0-98.0); Mean Platelet Volume 10.9 fL (7.4-10.4); Platelet Count 177 10x3/uL (130-400); RBC Distribution Width 14.3 % (11.5-14.5); Red Blood Cell (RBC) Count 2.99 mill/uL (4.70-6.10)
[2024-06-09 21:32] LABS: ALT (SGPT) 9 U/L (8-55); AST (SGOT) 10 U/L (5-34); Albumin 3.1 g/dL (3.4-4.8); Alkaline Phosphatase 134 U/L (40-110); Anion Gap 18 mmol/L (10-20); BUN (Urea Nitrogen) 38 mg/dL (8.4-25.7); Bilirubin, Total 0.7 mg/dL (0.2-1.2); Calc. Creatinine Clearance 0 mL/min (70-130); Calcium 9.2 mg/dL (7.8-10.44); Carbon Dioxide 28 mmol/L (23-31); Chloride 96 mmol/L (98-107); Estimated GFR 7; Globulin 3.7 g/dL (2.4-3.5); Glucose 225 mg/dL (80-115); Potassium 3.8 mmol/L (3.5-5.1); Protein, Total 6.8 g/dL (5.8-8.1); Sodium 138 mmol/L (136-145)
[2024-06-09 21:53] LABS: Troponin I 0.025 ng/mL (< 0.028)
[2024-06-10 01:41] LABS: Hep C Index 13.45 S/CO (0-0.79)
[2024-06-10 02:06] LABS: HBSAB Concentration 214.01 mIU/mL
[2024-06-10 02:11] LABS: Hep B Surf AB REACTIVE (NonReactive); Hep C IgG Ab Reflex HepC Qnt S/CO (NonReactive)
[2024-06-10 02:12] LABS: Hep B Core Total Ab REACTIVE (NonReactive)
[2024-06-10 02:19] LABS: Hep B Surf Ag NONREACTIVE S/CO (NonReactive)
[2024-06-10 02:52] LABS: Hep B Core Total Index 4.37 S/CO (0-0.79)
[2024-06-10] MEDS ORDERED: Ondansetron ODT 4 MG TAB ONE (05:06)
== END 2024-06-10 06:35 ==
LOC: ERS 20:15
DX: E87.70 Fluid overload, unspecified (principal); E78.00 Pure hypercholesterolemia, unspecified; I25.2 Old myocardial infarction; I13.2 Hypertensive heart and chronic kidney disease with heart failure and with stage 5 chronic kidney disease, or end stage renal disease; E11.22 Type 2 diabetes mellitus with diabetic chronic kidney disease; N18.6 End stage renal disease; I50.9 Heart failure, unspecified; Z99.2 Dependence on renal dialysis
CPT/HCPCS: 36415; 71045; 80053; 83880; 84484; 85025; 86704; 86706; 86803; 87340; 90935; 93005; G0257; Q0162